=== PATIENT | female | born 1965 | race Caucasian/White ===

== ENCOUNTER → 2018-12-22 07:12 | Outpatient (CLI) | payer OTHER, SELFPAY ==
[2016-11-09 16:12] VITALS: BMI 21.9
[2018-12-22 08:15] LABS: 24Hr.Lytes Total Volume 700 mL; Sodium 24 HR UR 118 mmol/24h (40-220); Urine Sodium 168 mmol/L (Not Establ.)
[2018-12-22 08:16] LABS: Urine Chloride 156 mmol/L (Not Establ.)
[2018-12-22 08:22] LABS: (24 HR) Urine Calcium 133.1 mg/24 HR (42.0-353.0); 24HR UR TOTAL VOLUME 625 ml; Calcium Urine pH Range 2; Urine Calcium (Random) 21.3 (Not Estab.)
[2018-12-22 09:23] LABS: Albumin, Serum 3.7 g/dL (3.2-5.0); BUN 23 mg/dL (7-18); BUN/Creat Ratio 19.8 RATIO (10-20); Calcium,Total 9.1 mg/dL (8.5-10.1); Chloride 107 mmol/L (98-107); Creatinine, Serum 1.16 mg/dL (0.55-1.02); EST Glomerular Filtration Rate 52 mL/min (>60); Est Glom Filt Rate - Afr Amer 62 mL/min (>60); Glucose 89 mg/dL (74-106); Phosphorus 2.9 mg/dL (2.5-4.9); Sodium Level 146 mmol/L (136-145)
[2018-12-22 09:31] LABS: PTHIN 65.3 pg/mL (18.4-80.1)
== END ==
PROVIDERS: Family Provider Family Medicine; PCP Family Medicine; Referring Provider Internal Medicine Nephrology; Visit Provider Internal Medicine Nephrology
DX: N18.3 Chronic kidney disease, stage 3 (moderate) (principal); N20.0 Calculus of kidney
CPT/HCPCS: 36415; 80069; 82340; 82436; 83970; 84133; 84300; 84560

== ENCOUNTER → 2019-04-29 | Outpatient (CLI) | payer OTHER, SELFPAY ==
[2016-11-09 16:12] VITALS: BMI 21.9
[2019-04-29 09:19] LABS: (24 HR) Urine Calcium 224.1 mg/24 HR (42.0-353.0); 24HR UR TOTAL VOLUME 1375 ml; Calcium Urine pH Range 1; Urine Calcium (Random) 16.3 (Not Estab.)
[2019-04-29 09:21] LABS: 24Hr.Lytes Total Volume 1375 mL; Sodium 24 HR UR 117 mmol/24h (40-220); Urine Sodium 85 mmol/L (Not Establ.)
[2019-04-29 09:24] LABS: Urine Chloride 88 mmol/L (Not Establ.)
== END | disposition home or self-care (01) ==
LOC: LABSPEC 07:25
PROVIDERS: Family Provider Family Medicine; PCP Family Medicine; Referring Provider Internal Medicine Nephrology; Visit Provider Internal Medicine Nephrology
DX: N20.0 Calculus of kidney (principal)
CPT/HCPCS: 82340; 82436; 84133; 84300

== ENCOUNTER → 2019-04-30 | Outpatient (CLI) | payer OTHER, SELFPAY ==
[2016-11-09 16:12] VITALS: BMI 21.9
[2019-04-30 10:33] LABS: BUN 30 mg/dL (7-18); BUN/Creat Ratio 23.6 RATIO (10-20); Calcium,Total 9.5 mg/dL (8.5-10.1); Chloride 105 mmol/L (98-107); Creatinine, Serum 1.27 mg/dL (0.55-1.02); EST Glomerular Filtration Rate 46 mL/min (>60); Est Glom Filt Rate - Afr Amer 56 mL/min (>60); Glucose 96 mg/dL (74-106); Phosphorus 3.5 mg/dL (2.5-4.9); Potassium 4.4 mmol/L (3.5-5.1); Sodium Level 142 mmol/L (136-145)
== END | disposition home or self-care (01) ==
LOC: LAB.FUTURE 08:54 → LABSPEC 08:55
PROVIDERS: Family Provider Family Medicine; PCP Family Medicine; Referring Provider Internal Medicine Nephrology; Visit Provider Internal Medicine Nephrology
DX: N18.3 Chronic kidney disease, stage 3 (moderate) (principal); N20.0 Calculus of kidney
CPT/HCPCS: 36415; 80069

== ENCOUNTER → 2020-01-12 08:52 | Outpatient (CLI) | payer OTHER, SELFPAY ==
[2016-11-09 16:12] VITALS: BMI 21.9
[2020-01-12 10:23] LABS: BUN 29 mg/dL (7-18); BUN/Creat Ratio 24.2 RATIO (10-20); Calcium,Total 9.6 mg/dL (8.5-10.1); Chloride 108 mmol/L (98-107); EST Glomerular Filtration Rate 49 mL/min (>60); Est Glom Filt Rate - Afr Amer 60 mL/min (>60); Glucose 118 mg/dL (74-106); Phosphorus 2.9 mg/dL (2.5-4.9); Potassium 4.2 mmol/L (3.5-5.1); Sodium Level 141 mmol/L (136-145)
== END ==
PROVIDERS: PCP Family Medicine; Referring Provider Internal Medicine Nephrology; Visit Provider Internal Medicine Nephrology
DX: N18.3 Chronic kidney disease, stage 3 (moderate) (principal)
CPT/HCPCS: 36415; 80069

== ENCOUNTER → 2020-11-01 07:45 | Outpatient (CLI) | payer OTHER, SELFPAY ==
[2016-11-09 16:12] VITALS: BMI 21.9
[2020-11-01 08:59] LABS: Albumin, Serum 3.9 g/dL (3.2-5.0); BUN 29 mg/dL (7-18); BUN/Creat Ratio 22.8 RATIO (10-20); Calcium,Total 9.7 mg/dL (8.5-10.1); Chloride 107 mmol/L (98-107); Creatinine, Serum 1.27 mg/dL (0.55-1.02); EST Glomerular Filtration Rate 46 mL/min (>60); Est Glom Filt Rate - Afr Amer 56 mL/min (>60); Glucose 79 mg/dL (74-106); Potassium 4.3 mmol/L (3.5-5.1); Sodium Level 141 mmol/L (136-145)
== END ==
PROVIDERS: PCP Family Medicine; Referring Provider Internal Medicine Nephrology; Visit Provider Internal Medicine Nephrology
DX: N18.30 Chronic kidney disease, stage 3 unspecified (principal)
CPT/HCPCS: 36415; 80069

== ENCOUNTER → 2021-01-25 14:16 | Outpatient (CLI) | payer OTHER, SELFPAY ==
[2016-11-09 16:12] VITALS: BMI 21.9
[2021-01-25 15:12] LABS: 24Hr.Lytes Total Volume 1650 mL; Sodium 24 HR UR 211 mmol/24h (40-220); Urine Chloride 132 mmol/L (Not Establ.); Urine Chloride / 24 Hours 218 mmol/24h (110-250); Urine Sodium 128 mmol/L (Not Establ.)
== END ==
PROVIDERS: PCP Family Medicine; Referring Provider Internal Medicine Nephrology; Visit Provider Internal Medicine Nephrology
DX: N20.0 Calculus of kidney (principal)
CPT/HCPCS: 81050; 82436; 84133; 84300

== ENCOUNTER → 2021-06-27 08:10 | Outpatient (CLI) | payer OTHER, SELFPAY ==
[2016-11-09 16:12] VITALS: BMI 21.9
[2021-06-27 08:50] LABS: PTHIN 98.9 pg/mL (18.4-80.1)
[2021-06-27 08:55] LABS: Albumin, Serum 4.2 g/dL (3.2-5.0); BUN 25 mg/dL (7-18); BUN/Creat Ratio 22.3 RATIO (10-20); Calcium,Total 9.3 mg/dL (8.5-10.1); Chloride 107 mmol/L (98-107); Creatinine, Serum 1.12 mg/dL (0.55-1.02); EST Glomerular Filtration Rate 53 mL/min (>60); Est Glom Filt Rate - Afr Amer 64 mL/min (>60); Glucose 110 mg/dL (74-106); Phosphorus 2.7 mg/dL (2.5-4.9); Potassium 4.2 mmol/L (3.5-5.1); Sodium Level 139 mmol/L (136-145)
== END ==
PROVIDERS: PCP Family Medicine; Referring Provider Internal Medicine Nephrology; Visit Provider Internal Medicine Nephrology
DX: N18.31 Chronic kidney disease, stage 3a (principal)
CPT/HCPCS: 36415; 80069; 83970

== ENCOUNTER 2021-11-08 03:35 | Emergency (ER) | payer OTHER, SELFPAY ==
[2021-11-08 03:36] VITALS: BP 110/75; PULSE 77; RESP 16; TEMP 36.1; O2SAT 100; BMI 21.9
--- NOTE | 2021-11-08 05:00 | CT_ITS ---
EXAM: CT ABDOMEN AND PELVIS WITH INTRAVENOUS CONTRAST CLINICAL INDICATION: llq/vaginal pain llq/vaginal pain TECHNIQUE: Helically acquired images were obtained of the abdomen and pelvis with intravenous contrast. This CT exam was performed using one or more of the following dose reduction techniques: automated exposure control, adjustment of the mA and/or kV according to patient size, and/or use of iterative reconstruction technique. This report was created using [employer] report generation technology. CONTRAST: IV 75mL [id number] COMPARISON: CT scan 10/30/2016. FINDINGS: LOWER THORAX: There are centrilobular emphysematous changes in the visualized lower lung nelson bilaterally. As seen on axial image 2, there is a 7 mm noncalcified solid intraparenchymal right lower lung nodule. No cardiomegaly. No significant pericardial effusion. ABDOMEN: LIVER: Unremarkable. Homogeneous. No focal mass. GALLBLADDER AND BILE DUCTS: Unremarkable. No calcified gallstones. No gallbladder distention or wall edema. No intra- or extrahepatic biliary ductal dilation. PANCREAS: Unremarkable. No focal cystic or solid mass. SPLEEN: Unremarkable. Normal size without focal cystic or solid mass. ADRENALS: Unremarkable. No nodules. KIDNEYS AND URETERS: As seen on axial images 90-91, there is a 2.5 mm wide calcification in the left posterior urinary bladder. I''m uncertain as to whether this represents a distal left ureteral calculus in the interstitial portion of the UVJ or this represents a calculus that has already passed into the bladder lumen.. There is no demonstrated hydronephrosis of the left kidney. There are 4 nonobstructive right renal calculi, ranging up to 3.5 mm. Normal renal size and position. STOMACH AND BOWEL: There are colonic diverticula. No stomach or bowel distention. No focal inflammatory change. PELVIS: APPENDIX: A normal-appearing appendix is seen on axial images 64-76. BLADDER: Unremarkable. REPRODUCTIVE: Unremarkable as visualized. No mass. ABDOMEN and PELVIS: INTRAPERITONEAL SPACE: Unremarkable. No ascites or other fluid collection. No free air. BONES/JOINTS: There are multilevel degenerative changes in the lumbar spine. No suspicious lytic or blastic abnormality. SOFT TISSUES: Unremarkable. No discrete abdominal or pelvic wall hernia. VASCULATURE: There is a dystrophic calcification of the abdominal aorta. Abdominal aorta is non-dilated. LYMPH NODES: Unremarkable. No enlarged lymph nodes. CT/Abdomen/Pelvis W IV Cont ONLY IMPRESSION: 1. 2.5 mm wide calculus is either in the left posterior bladder lumen or it is in the distal most left ureter within the UVJ. There is no associated hydronephrosis of the left kidney. 2. Small nonobstructive right renal calculi. No demonstrated right ureteral calculi or hydronephrosis. 3. Colonic diverticulosis, without evidence for acute diverticulitis. 4. Atherosclerosis. 5. 7 mm right lower lobe lung nodule. Fleischner Society Guidelines for low-risk patients recommend follow-up chest CT at 6-12 months. If unchanged consider an additional follow-up CT at 18-24 months. For high-risk patients (smoking history or other known risk factors) initial follow-up chest CT at 6-12 months and if unchanged, 18-24 months. 6. Emphysematous changes in the visualized lung bases. Electronically Signed: Jose John MD at 7:18 EST , Service support ,
--- NOTE | 2021-11-08 05:00 | ED.VIS.GI ---
HPI HPI - GI History of Present Illness Chief Complaint: Female C/O Informant: patient Abdominal Pain/Flank Pain Onset: Hours (2.5) Context: Sudden Onset (Woke her up from sleep) Timing: Continuous Quality: Aching and Sharp Location: - (Up in vagina) Current Severity: Severe Maximum Severity: Severe Worsened by: Car ride Relieved by: Nothing Nausea/Vomiting/Emesis GI Symptom: Negative for Nausea and Vomiting Diarrhea/Melena/Hematochezia GI Symptom: Negative for Diarrhea, Melena and Hematochezia Associated Symptoms Associated Symptoms: Positive for - ([place] like needed to urinate earlier but was not able); Negative for Dysuria, Frequency, Hematuria and Urgency Narrative Narrative: Sudden pain awoke her from sleep. History of kidney stones and this feels different. Pain does not go into back. [place] fine before she went to bed. No recent illness or injury. [facility] Medical History (Updated 11/08/21 @ 07:[address] Neto Duval MD) Kidney stones Home Medications estradiol 0.5 mg PO DAILY 11/09/16 [History Last Taken Unknown] ondansetron 8 mg PO Q8H PRN PRN #20 tab 11/08/21 [Rx Last Taken Unknown] oxycodone-acetaminophen 1 tab PO Q6H PRN PRN 5 Days #20 tablet 11/08/21 [Rx Last Taken Unknown] tamsulosin 0.4 mg PO DAILY #7 capsule 11/08/21 [Rx Last Taken Unknown] Allergy/AdvReac Type Severity Reaction Status Date / Time nitrofurantoin Allergy Hives Verified 11/08/21 03:38 [From Macrobid] Yeast Allergy Other Verified 11/08/21 03:38 Surgical History H/O bilateral oophorectomy H/O lithotripsy S/P complete hysterectomy Social History Smoking Status: Current some day smoker tobacco type: cigarettes ROS ROS ED Constitutional Constitutional ED: Denies chills or fever(s) Eyes Eyes: Denies change in vision or diplopia ENT ENT ED: Denies rhinorrhea or sore throat Cardiovascular Cardiovascular: Denies chest pain or palpitations Respiratory/Chest Respiratory/Chest: Denies cough or dyspnea Gastrointestinal Gastrointestinal: Denies abdominal pain, diarrhea, nausea or vomiting Genitourinary Genitourinary ED: Reports as per HPI; Denies dysuria, hematuria, vaginal bleeding or vaginal discharge Musculoskeletal Musculoskeletal: Denies back pain or neck pain Integumentary Denies abscess or rash Neurologic Neurologic: Denies headache(s), paresthesias or weakness Psychiatric Psychiatric: Denies anxiety or suicidal thoughts EXAM Physical Exam Const Vital Signs: 11/08/21 03:36 11/08/21 05:12 Temperature 97 F L 97 F L Temperature Source Temporal Temporal Pulse Rate 77 77 Respiratory Rate 16 16 Blood Pressure 110/75 110/75 Blood Pressure Mean 86 86 Pulse Ox 100 100 Oxygen Delivery Method Room Air Room Air Positive well nourished and well developed Constitutional Narrative: Uncomfortable but no distress General Appearance ED: well developed and NAD HEENT Reports moist mucous membranes normocephalic and atraumatic Eyes PERRL and EOMs intact bilaterally Neck full ROM and supple Resp normal respiratory effort and clear to auscultation bilaterally Cardio regular rate, regular rhythm and no murmurs GI non-distended GI Narrative: Very tender suprapubic and left lower quadrant and pelvis area, distally no rebound Auscultation: normoactive bowel sounds Palpation: soft Speculum Exam - Vagina: Negative for vaginal bleeding or vaginal discharge Back/Spine no CVA tenderness General Back: other FROM Extremity normal to inspection General Extremety ED: Negative for edema, pulses abnormal or tenderness General Extremity: Negative for edema or pulses abnormal Neuro oriented x3, CN's II-XII intact bilaterally and no sensory deficits noted Sensorium / Orientation: awake and alert Motor Exam: strength 5/5 throughout Skin no rashes or lesions noted and no wounds MDM MDM MDM Narrative Medical decision making narrative: CT shows a left UVJ stone which is probably the cause of her symptoms. Her pain was well controlled after morphine and Toradol. Given her tenderness and the history, we did do the scan with IV contrast to look for other pathology and there were no other acute abnormalities. Expectant management is indicated right now, her urine does not show infection but does show blood. She is given strainers, analgesics, and advised to follow-up with urology as needed, she is comfortable with that overall plan. I will also prescribe her a short course of Flomax and I warned her about the possibility of first dose syncope. Lab Data Attestation: I reviewed the patient's lab results. Labs: Laboratory Results - last 24 hr 11/08/21 11/08/21 11/08/21 05:15 05:15 05:15 WBC 9.2 RBC 4.74 Hgb 14.1 Hct 44.5 MCV 93.9 MCH 29.7 MCHC 31.7 L RDW Std Deviation 43.9 RDW Coeff of Arlene 12.7 Plt Count 275 MPV 10.0 Immature Gran % (Auto) 0.300 Neut % (Auto) 67.4 Lymph % (Auto) 22.1 [place] % (Auto) 8.3 Eos % (Auto) 1.2 Baso % (Auto) 0.7 Absolute Neuts (auto) 6.2 Absolute Lymphs (auto) 2.03 Nucleated RBC % 0 Sodium 142 Potassium 4.2 Chloride 106 Carbon Dioxide 31.0 Anion Gap 5 BUN 25 H Creatinine 1.28 H Estim Creat Clear Calc 38.35 Est GFR (MDRD) Af Amer 55 L Est GFR (MDRD) Non-Af 46 L BUN/Creatinine Ratio 19.5 Glucose 95 Calcium 9.6 Urine Color Yellow Urine Clarity Clear Urine pH 5.0 Ur Specific [place] 1.030 Urine Protein 30 H Urine Glucose (UA) Normal Urine Ketones 5 H Urine Occult Blood 250 H Urine Nitrite Negative Urine Bilirubin 1 H Urine Urobilinogen 1 H Ur Leukocyte Esterase 25 H Urine RBC 25-50 SEEN Urine WBC 0-5 SEEN Ur Squamous Epith Cells 0 SEEN Calcium Oxalate Crystal RARE Urine Bacteria 1+ Urine Mucus 1+ Radiography Diagnostic Testing: Clinical Impression(s) from Imaging Studies Abdomen/Pelvis CT 11/08/21 05:00 IMPRESSION: 1. 2.5 mm wide calculus is either in the left posterior bladder lumen or it is in the distal most left ureter within the UVJ. There is no associated hydronephrosis of the left kidney. 2. Small nonobstructive right renal calculi. No demonstrated right ureteral calculi or hydronephrosis. 3. Colonic diverticulosis, without evidence for acute diverticulitis. 4. Atherosclerosis. 5. 7 mm right lower lobe lung nodule. Fleischner Society Guidelines for low-risk patients recommend follow-up chest CT at 6-12 months. If unchanged consider an additional follow-up CT at 18-24 months. For high-risk patients (smoking history or other known risk factors) initial follow-up chest CT at 6-12 months and if unchanged, 18-24 months. 6. Emphysematous changes in the visualized lung bases. Electronically Signed: Jose John MD at 7:18 EST , Service support , Discharge Plan Triage Chief Complaint: Female C/O ED Provider: Neto Duval Dx/Rx/DC Orders Clinical Impression: Ureterolithiasis, Ureteral colic Instructions: ED Kidney Stone w/ Colic Prescriptions: New oxycodone-acetaminophen [oxycodone-acetaminophen] 1 TABLET tablet 1 tab PO Q6H PRN PRN (Reason: severe pain) 5 Days Qty: 20 RF: 0 tamsulosin [tamsulosin] 0.4 MG capsule 0.4 mg PO DAILY Qty: 7 RF: 0 ondansetron [ondansetron] 4 MG tablet 8 mg PO Q8H PRN PRN (Reason: Nausea) Qty: 20 RF: 0 No Action estradiol 0.5 MG tablet 0.5 mg PO DAILY RF: 0 Primary Care Provider: Alejo Solitario Referrals: Avelina Rios MD [STAFF PHYSICIAN] - 1 Week if not improving (Return to ER for intractable symptoms or fevers; strain all of your urine, so you know if and when you pass the stone) Alejo Solitario MD [Primary Care Provider] - Disposition Disposition: Home, Self Care
[2021-11-08] MEDS: Morphine 4 MG/ML Syringe IV ×2 (05:10→06:31)
[2021-11-08] MEDS: 0.9% Normal Saline 1,000 ML 999 ML IV (05:11)
[2021-11-08 05:12] VITALS: BP 110/75; PULSE 77; RESP 16; TEMP 36.1; O2SAT 100
[2021-11-08 05:28] LABS: Squamous Epithelial Cells - UA 0 SEEN /hpf (5-10)
[2021-11-08 05:30] LABS: Absolute Lymphocyte Count 2.03 X10^3/uL (0.83-4.51); Absolute Neutrophil Count 6.2 X10^3/uL (2.0-7.7); Basophil# 0.06 X10^3/uL; Basophil% 0.7 % (0-1); Eosinophil# 0.11 X10^3/uL; Eosinophils% 1.2 % (0-5); Hematocrit 44.5 % (37-47); Hemoglobin 14.1 g/dL (12.0-15.0); Lymphocyte # 2.03 X10^3/ul (0.83-4.51); Lymphocyte % 22.1 % (19-41); Mean Corp Hgb Conc 31.7 g/dL (32-36); Mean Corpuscular Hgb 29.7 pg (27.0-32.0); Mean Corpuscular Volume 93.9 fL (81-99); Monocyte# 0.76 X10^3/uL; Monocyte% 8.3 % (0-10); NRBC Flagged by Analyzer 0 % (0-5); Neutrophil # 6.18 X10^3/uL (2.7-7.7); Neutrophil % 67.4 % (47-70); Platelet Count 275 K/mm3 (150-450); RBC Distribution Width CV 12.7 % (11.6-14.6); RBC Distribution Width SD 43.9 fl (35.1-43.9); Red Blood Count 4.74 M/mm3 (4.2-5.4); White Blood Count 9.2 K/mm3 (4.4-11.0)
[2021-11-08 05:35] LABS: Color, Urine Yellow (Yellow); Glucose, Dipstick Normal (Normal); Ketone-Dipstick 5 mg/dl (Negative); Leukocyte Esterase-Dipstick 25 /ul (Negative); Nitrite-Dipstick Negative (Negative); Occult Blood-Urine 250 /ul (Negative); Protein-Dipstick 30 mg/dl (Negative); Urine Clarity Clear (Clear); Urine Urobilinogen 1 mg/dl (Normal)
[2021-11-08 05:39] LABS: Urine Bilirubin Dipstick 1 mg/dL (Negative)
[2021-11-08 06:00] LABS: Anion Gap 5 (5-15); BUN 25 mg/dL (7-18); BUN/Creat Ratio 19.5 RATIO (10-20); Calcium,Total 9.6 mg/dL (8.5-10.1); Chloride 106 mmol/L (98-107); Creatinine, Serum 1.28 mg/dL (0.55-1.02); EST Glomerular Filtration Rate 46 mL/min (>60); Est Glom Filt Rate - Afr Amer 55 mL/min (>60); Estimated Creatinine Clearance 38.35 ml/min; Glucose 95 mg/dL (74-106); Potassium 4.2 mmol/L (3.5-5.1); Sodium Level 142 mmol/L (136-145)
[2021-11-08 06:12] LABS: Red Blood Cells-Urine 25-50 SEEN /hpf (0-5); White Blood Cells 0-5 SEEN /hpf (0-5)
[2021-11-08 06:13] LABS: Bacteria 1+ /hpf (None Seen); Calcium Oxalate Crystals Ur RARE /hpf (<or=2+); Mucous, Urine 1+ /hpf (<or=2+)
[2021-11-08] MEDS: Ketorolac 15 MG/ML Vial IV (07:12)
== END 2021-11-08 08:01 | disposition home or self-care (01) ==
PROVIDERS: Emergency Provider Emergency Medicine; PCP Family Medicine
DX: N20.0 Calculus of kidney (principal); R91.1 Solitary pulmonary nodule; Z87.442 Personal history of urinary calculi; F17.210 Nicotine dependence, cigarettes, uncomplicated
CPT/HCPCS: 74177; 80048; 81001; 85025; 96361; 96374; 96375; 96376; 99284; J7030; Q9967; A4216

== ENCOUNTER → 2022-06-26 | Outpatient (CLI) | payer OTHER, SELFPAY ==
[2022-06-26 10:13] LABS: Albumin, Serum 3.9 g/dL (3.2-5.0); BUN 20 mg/dL (7-18); BUN/Creat Ratio 17.7 RATIO (10-20); Calcium,Total 9.1 mg/dL (8.5-10.1); Chloride 106 mmol/L (98-107); Creatinine, Serum 1.13 mg/dL (0.55-1.02); EST Glomerular Filtration Rate 53 mL/min (>60); Est Glom Filt Rate - Afr Amer 64 mL/min (>60); Glucose 110 mg/dL (74-106); Phosphorus 2.6 mg/dL (2.5-4.9); Potassium 4.2 mmol/L (3.5-5.1); Sodium Level 139 mmol/L (136-145)
== END | disposition home or self-care (01) ==
PROVIDERS: PCP Family Medicine; Referring Provider Internal Medicine Nephrology; Visit Provider Internal Medicine Nephrology
DX: N18.31 Chronic kidney disease, stage 3a (principal)
CPT/HCPCS: 36415; 80069

== ENCOUNTER → 2022-06-27 | Outpatient (CLI) | payer OTHER, SELFPAY | END | disposition home or self-care (01) | LOC: LAB 10:13 → LABSPEC 10:15 | PROVIDERS: PCP Family Medicine; Visit Provider Internal Medicine Nephrology | DX: N18.31 Chronic kidney disease, stage 3a (principal); N20.0 Calculus of kidney | CPT/HCPCS: 81050; 82507 ==

== ENCOUNTER → 2022-06-28 | Outpatient (CLI) | payer OTHER, SELFPAY ==
[2022-06-28 17:35] LABS: 24HR UR TOTAL VOLUME 1050 ml
[2022-06-29 07:50] LABS: Calcium Urine pH Range 1
[2022-06-29 07:54] LABS: 24Hr.Lytes Total Volume 1050 mL; Sodium 24 HR UR 133 mmol/24h (40-220); Urine Sodium 127 mmol/L (Not Establ.)
== END | disposition home or self-care (01) ==
LOC: LAB 14:47 → LABSPEC 14:48
PROVIDERS: PCP Family Medicine; Visit Provider Internal Medicine Nephrology
DX: N18.31 Chronic kidney disease, stage 3a (principal)
CPT/HCPCS: 81050; 82340; 84300

== ENCOUNTER 2022-12-25 04:13 | Emergency (ER) | payer OTHER, SELFPAY ==
[2022-12-25 04:14] VITALS: BP 153/70; PULSE 63; RESP 18; TEMP 36.4; O2SAT 98; BMI 22.3
--- NOTE | 2022-12-25 04:57 | CT_ITS ---
INDICATION: Kidney Stone EXAMINATION: CT ABDOMEN AND PELVIS WITHOUT CONTRAST - CT Abdomen And Pelvis W/O Contrast Injection TECHNIQUE: Helically acquired images were obtained of the abdomen and pelvis without oral or IV contrast. A radiation dose optimization technique was used for this scan. IV Contrast dosage and agent: None. Oral contrast: None. COMPARISON: None. FINDINGS: LOWER CHEST: Lung bases are clear. No cardiomegaly or pericardial effusion. LIVER: Homogeneous. No focal mass. GALLBLADDER AND BILIARY TREE: No calcified gallstones. No gallbladder distension or wall edema. No intra- or extrahepatic biliary ductal dilation. PANCREAS: No focal cystic or solid mass. SPLEEN: Normal size without focal cystic or solid mass. ADRENAL GLANDS: No nodules. KIDNEYS AND URETERS: Bilateral kidney stones the largest measures 6 mm. there is mild left hydronephrosis and hydroureter due to 3 mm stone left ureter at the UVJ. PERITONEUM: No ascites or free air. No other fluid collection. BOWEL: No evidence of acute appendicitis. No stomach or bowel distension. No focal inflammatory change. LYMPH NODES: No enlarged mesenteric or retroperitoneal lymph nodes. VESSELS: Aorta is non-dilated. URINARY BLADDER: Unremarkable. REPRODUCTIVE ORGANS: No pelvic masses. ABDOMINAL WALL: No discrete abdominal or pelvic wall hernia. BONES: No lytic or blastic abnormality. CT/Abdomen/Pelvis without Cont IMPRESSION: Bilateral kidney stones the largest measures 6 mm, there is mild left hydronephrosis and hydroureter due to 3 mm stone left ureter at the UVJ. Electronically Signed: Adam Lemos MD at 5:57 EST ,
[2022-12-25] MEDS: Morphine 4 MG/ML Syringe IV (05:04)
[2022-12-25] MEDS: 0.9% Normal Saline 1,000 ML 999 ML IV (05:05)
[2022-12-25 05:06] LABS: Absolute Lymphocyte Count 2.64 X10^3/uL (0.83-4.51); Basophil# 0.05 X10^3/uL; Basophil% 0.6 % (0-1); Eosinophil# 0.21 X10^3/uL; Eosinophils% 2.4 % (0-5); Hematocrit 41.7 % (37-47); Hemoglobin 13.3 g/dL (12.0-15.0); Lymphocyte # 2.64 X10^3/ul (0.83-4.51); Lymphocyte % 30.5 % (19-41); Mean Corp Hgb Conc 31.9 g/dL (32-36); Mean Corpuscular Hgb 29.8 pg (27.0-32.0); Mean Corpuscular Volume 93.3 fL (81-99); Mean Platelet Vol. 10.3 fl (6.2-12.0); Monocyte# 0.74 X10^3/uL; Monocyte% 8.5 % (0-10); NRBC Flagged by Analyzer 0 % (0-5); Neutrophil # 4.99 X10^3/uL (2.7-7.7); Neutrophil % 57.7 % (47-70); Platelet Count 278 K/mm3 (150-450); RBC Distribution Width SD 41.3 fl (35.1-43.9); Red Blood Count 4.47 M/mm3 (4.2-5.4); White Blood Count 8.7 K/mm3 (4.4-11.0)
[2022-12-25 05:06] LABS: Mucous, Urine 0 SEEN /hpf (<or=2+); Red Blood Cells-Urine 0 SEEN /hpf (0-5); Squamous Epithelial Cells - UA 0 SEEN /hpf (5-10); White Blood Cells 0 SEEN /hpf (0-5)
[2022-12-25 05:09] LABS: Color, Urine Yellow (Yellow); Glucose, Dipstick Normal (Normal); Ketone-Dipstick Negative (Negative); Leukocyte Esterase-Dipstick Negative /ul (Negative); Nitrite-Dipstick Negative (Negative); Occult Blood-Urine Negative /ul (Negative); Protein-Dipstick Negative (Negative); Urine Bilirubin Dipstick Negative (Negative); Urine Clarity Clear (Clear); Urine Urobilinogen Normal (Normal)
--- NOTE | 2022-12-25 05:10 | EDS_ITS ---
HPI History of Present Illness Chief Complaint: Flank Pain Informant: patient Narrative Narrative: Patient is a 57-year-old female with history of CKD and kidney stones presenting with vaginal pain and pressure/concern for kidney stones. Patient states her symptoms started tonight. She states it feels like her last kidney stone was about 5 years ago. She has had lithotripsy in the past. She does not currently follow with a urologist. She notes she is on medication from her pharmaceutical specialty representative, citrate, which can increase the risk of passing kidney stones. She has over the past 2 days she just felt more tired but denies any other symptoms. Denies any nausea or vomiting. Denies any frequency, pressure or hematuria associate with urination. Denies any bulging out of her vagina. Denies any history of vaginal prolapse, rectocele or cystocele. Denies any back pain. States she just has a throbbing pain in her vagina. She had 2 Aleve earlier tonight with no relief of her symptoms. [facility] Medical History Kidney stones Home Medications estradiol 0.5 mg tablet 0.5 mg PO DAILY 11/09/16 [History Last Taken Unknown] ondansetron 4 mg disintegrating tablet 8 mg PO Q8H PRN PRN Nausea #20 tabs 11/08/21 [Rx Last Taken Unknown] oxycodone-acetaminophen 5 mg-325 mg tablet 1 tab PO Q6H PRN PRN severe pain 5 days #20 TABLETS 11/08/21 [Rx Last Taken Unknown] tamsulosin 0.4 mg capsule 0.4 mg PO DAILY #7 CAPSULES 11/08/21 [Rx Last Taken Unknown] oxycodone-acetaminophen 5 mg-325 mg tablet (Percocet) 1 tab PO Q6H PRN pain 3 days #12 tabs 12/25/22 [Rx Last Taken Unknown] tamsulosin 0.4 mg capsule (Flomax) 0.4 mg PO DAILY #7 caps 12/25/22 [Rx Last Taken Unknown] Allergy/AdvReac Type Severity Reaction Status Date / Time nitrofurantoin Allergy Hives Verified 11/08/21 03:38 [From Macrobid] Yeast Allergy Other Verified 11/08/21 03:38 Surgical History H/O bilateral oophorectomy H/O lithotripsy S/P complete hysterectomy Social History Smoking Status: Former smoker ROS ROS ED Constitutional Constitutional ED: Denies chills or fever(s) Cardiovascular Cardiovascular: Denies chest pain Respiratory/Chest Respiratory/Chest: Denies cough Gastrointestinal Gastrointestinal: Denies abdominal pain, diarrhea, nausea or vomiting Genitourinary Genitourinary ED: Reports other Details: Vaginal pain ; Denies dysuria, hematuria or urinary frequency Musculoskeletal Musculoskeletal: Denies arthralgias, back pain or myalgias Integumentary Denies rash Neurologic Neurologic: Denies headache(s) or weakness Psychiatric Psychiatric: Denies anxiety EXAM Physical Exam Const Vital Signs: 12/25/22 04:14 Temperature 97.5 F L Temperature Source Temporal Pulse Rate 63 Respiratory Rate 18 Blood Pressure 153/70 H Blood Pressure Mean 97 Pulse Ox 98 Oxygen Delivery Method Room Air Positive well nourished and well developed General Appearance ED: well developed and NAD; Negative for pallor HEENT Reports moist mucous membranes Eyes PERRL and EOMs intact bilaterally Neck supple and no JVD Chest Wall inspection of chest normal and palpation of chest normal Resp normal respiratory effort and clear to auscultation bilaterally GI normal to inspection, nondistended, normoactive bowel sounds Palpation: tender LUQ; Negative for guarding Back/Spine no CVA tenderness Extremity normal to inspection General Extremety ED: Negative for edema General Extremity: Negative for edema Neuro oriented x3 Sensorium / Orientation: alert Motor Exam: Negative for general weakness Psych mental status grossly normal Skin no rashes or lesions noted General Skin Exam: Negative for jaundice or pallor MDM MDM MDM Narrative Medical decision making narrative: Patient is evaluated for sudden onset which she describes as vaginal pain. She states it is throbbing. Feeling her prior kidney stones. Differential includes but is not limited to renal colic, pyelonephritis, UTI, vaginal prolapse and colitis. Urinalysis largely normal but does show 1+ bacteria with no leukocytes, nitrates or white blood cells. Low suspicion for infection. CBC unremarkable and BMP does show mildly other creatinine 1.35 however this is very near the patient's baseline. Patient is given a dose of morphine and IV fluids in the ER for symptom control and is feeling much more comfortable. CT of the abdomen pelvis does show a 3 mm stone at the left ureter at the UVJ as well as bilateral kidney stones with the largest measuring 6 mm. This pa stone should pass on its own. Patient is given dose of oxycodone prior to discharge. She would like to try outpatient treatment. She will be restarted on Flomax that she has had success with this in the past. She is given referral for Dr. Rios, urology. Patient is given return precautions. She does mention that she is planning on flying to [place] to go [employer] on . Patient is counseled that if her symptoms have resolved she should be safe to travel. She is counseled that her symptoms not resolve she might need to go to a local emergency room there. Plan of care and return precautions discussed with patient and her . They both agreeable. Patient discharged home in improved and stable condition. Lab Data Attestation: I reviewed the patient's lab results. Labs: Laboratory Results - last 24 hr 12/25/22 12/25/22 12/25/22 04:58 05:00 05:00 WBC 8.7 RBC 4.47 Hgb 13.3 Hct 41.7 MCV 93.3 MCH 29.8 MCHC 31.9 L RDW Std Deviation 41.3 RDW Coeff of Arlene 12.0 Plt Count 278 MPV 10.3 Immature Gran % (Auto) 0.300 Neut % (Auto) 57.7 Lymph % (Auto) 30.5 [place] % (Auto) 8.5 Eos % (Auto) 2.4 Baso % (Auto) 0.6 Absolute Neuts (auto) 5.0 Absolute Lymphs (auto) 2.64 Nucleated RBC % 0 Sodium 141 Potassium 4.5 Chloride 106 Carbon Dioxide 27.0 Anion Gap 8 BUN 28 H Creatinine 1.35 H Estim Creat Clear Calc 35.49 Est GFR (MDRD) Af Amer 52 L Est GFR (MDRD) Non-Af 43 L BUN/Creatinine Ratio 20.7 H Glucose 111 H Calcium 9.5 Urine Color Yellow Urine Clarity Clear Urine pH 6.0 Ur Specific [place] 1.020 Urine Protein Negative Urine Glucose (UA) Normal Urine Ketones Negative Urine Occult Blood Negative Urine Nitrite Negative Urine Bilirubin Negative Urine Urobilinogen Normal Ur Leukocyte Esterase Negative Urine RBC 0 SEEN Urine WBC 0 SEEN Ur Squamous Epith Cells 0 SEEN Urine Bacteria 1+ Urine Mucus 0 SEEN Radiography Diagnostic Testing: Clinical Impression(s) from Imaging Studies Abdomen/Pelvis CT 12/25/22 04:57 IMPRESSION: Bilateral kidney stones the largest measures 6 mm, there is mild left hydronephrosis and hydroureter due to 3 mm stone left ureter at the UVJ. Electronically Signed: Adam Lemos MD at 5:57 EST Reading Location ID and State: [facility] / [place] Tel , Service support , Discharge Plan Triage Chief Complaint: Flank Pain ED Provider: Pooja Ac Dx/Rx/DC Orders Clinical Impression: Renal colic on left side, Ureterolithiasis, CKD (chronic kidney disease) Instructions: ED Kidney Stone w/ Colic Prescriptions: New oxycodone-acetaminophen [Percocet] 5-325 mg tablet 1 tab PO Q6H PRN (Reason: pain) 3 Days Qty: 12 0RF tamsulosin [Flomax] 0.4 mg capsule 0.4 mg PO DAILY Qty: 7 0RF No Action estradiol 0.5 MG tablet 0.5 mg PO DAILY oxycodone-acetaminophen [oxycodone-acetaminophen] 1 TABLET tablet 1 tab PO Q6H PRN PRN (Reason: severe pain) 5 Days Qty: 20 0RF tamsulosin [tamsulosin] 0.4 MG capsule 0.4 mg PO DAILY Qty: 7 0RF ondansetron [ondansetron] 4 MG tablet 8 mg PO Q8H PRN PRN (Reason: Nausea) Qty: 20 0RF Primary Care Provider: Alejo Solitario Referrals: Avelina Rios MD [Med Staff - Active Staff] - As soon as possible Alejo Solitario MD [Primary Care Provider] - Activity Restrictions/Additional Instructions: Continue to drink lots of fluids. You were given a referral for urologist to follow-up. If your symptoms have resolved before I think it is completely safe for you to go on your trip. Disposition Disposition: Home, Self Care
[2022-12-25 05:16] LABS: Bacteria 1+ /hpf (None Seen)
[2022-12-25 05:20] LABS: Anion Gap 8 (5-15); BUN 28 mg/dL (7-18); BUN/Creat Ratio 20.7 RATIO (10-20); Calcium,Total 9.5 mg/dL (8.5-10.1); Chloride 106 mmol/L (98-107); Creatinine, Serum 1.35 mg/dL (0.55-1.02); EST Glomerular Filtration Rate 43 mL/min (>60); Est Glom Filt Rate - Afr Amer 52 mL/min (>60); Estimated Creatinine Clearance 35.49 ml/min; Glucose 111 mg/dL (74-106); Potassium 4.5 mmol/L (3.5-5.1); Sodium Level 141 mmol/L (136-145)
[2022-12-25] MEDS: oxyCODONE 5 MG Tablet PO (06:22)
[2022-12-25 06:39] VITALS: BP 118/68; PULSE 68; RESP 18; O2SAT 98
== END 2022-12-25 06:40 | disposition home or self-care (01) ==
PROVIDERS: Emergency Provider Emergency Medicine; PCP Family Medicine; Visit Provider Emergency Medicine
DX: N13.2 Hydronephrosis with renal and ureteral calculous obstruction (principal); N23 Unspecified renal colic; Z87.891 Personal history of nicotine dependence; N18.9 Chronic kidney disease, unspecified; Z87.442 Personal history of urinary calculi
CPT/HCPCS: 74176; 80048; 81001; 85025; 96361; 96374; 99284; J7030; A4216

== ENCOUNTER → 2023-01-18 | Outpatient (CLI) | payer OTHER, SELFPAY ==
--- NOTE | 2023-01-18 16:27 | RAD_ITS ---
STUDY: X-RAY - ABDOMEN/PELVIS REASON FOR EXAM: Female, 57 years old. KUB- STONES TECHNIQUE: Single AP view of the abdomen / pelvis. COMPARISON: None. FINDINGS: Normal visualized lung bases. There is an abundance of fecal material throughout the colon. There is no demonstrated free abdominal air. The visualized liver, spleen and kidneys are grossly normal in size and morphology. There are calcified phleboliths in the pelvis. Normal visualized osseous structures. RAD/Abdomen Single View IMPRESSION: No acute findings, retained stool Electronically Signed: Man Rios MD at 9:54 EST ,
== END | disposition home or self-care (01) ==
PROVIDERS: PCP Family Medicine; Referring Provider Urology; Visit Provider Urology
DX: N20.0 Calculus of kidney (principal)
CPT/HCPCS: 74018

== ENCOUNTER 2023-02-07 11:47 | Day surgery (SDC) | payer OTHER, SELFPAY ==
[2023-02-07 13:05] VITALS: BP 146/74; PULSE 54; RESP 16; TEMP 36.2; O2SAT 98; BMI 22.5
[2023-02-07] MEDS: Lactated Ringers 1,000 ML 15 ML IV (13:19)
--- NOTE | 2023-02-07 13:48 | PCM.OPRPT ---
Report of Operation Date of Procedure: 02/07/23 Pre-Operative Diagnosis: Right renal calculus Post-Operative Diagnosis: Same Surgery/Procedure Performed:: Right renal extracorporal shockwave lithotripsy Surgeon: Avelina Rios Type of Anesthesia: General Description of Procedure: The patient is a 57-year-old female with a known right renal calculus who now presents for surgical intervention. Informed consent was obtained. The patient was taken to the operating room and placed on the lithotripsy table. Anesthesia monitored the head, neck, airway, IV access and vital signs throughout the case. Once anesthesia was appropriately administered, the patient was aligned with the lithotripter. The stone was clearly visible. 3000 shocks were applied to the calculus which appeared to be well fragmented at the conclusion of the case. The patient was then awakened and taken to the recovery room in good condition. There were no complications during this procedure. Complications None Admit VTE Documentation VTE Present on Admission: Yes VTE Mechan Device Prophylaxis: SCD's VTE Pharm Prophylaxis ordered?: No Reason prophylaxis not ordered:: Treatment Not Indicated
--- NOTE | 2023-02-07 13:51 | DCINST_ITS ---
Discharge Instructions Diet Discharge Diet: No restrictions Activity Discharge Activity: Return to Normal Activity and May Not Drive (While taking pain medication) May resume sexual activity in: No Restrictions Dressing / Incision Call your doctor if you observe: Fever of 101 or Higher, Inability to urinate and Inability to have a bowel movement Follow Up Care Please Follow Up With: Avelina Rios MD When: Call the office for appointment to be seen in 2 to 3 weeks with a KUB Test Results: Test results from this visit will be discussed in further detail at your follow- up appointment, if applicable. Discharge Plan Admission Attending Provider: Avelina Rios Primary Care Provider: Alejo Solitario Discharge Orders/Prescriptions Prescriptions: New oxycodone-acetaminophen [Percocet] 5-325 mg tablet 1 tab PO Q8H PRN (Reason: pain) 3 Days Qty: 10 0RF cephalexin [cephalexin] 500 mg capsule 500 mg PO Q12 3 Days Qty: 6 0RF Continued oxycodone-acetaminophen 1 TABLET tablet 1 tab PO Q6H PRN PRN (Reason: severe pain) 5 Days Qty: 20 0RF multivitamin Tablet 1 tab PO DAILY clobetasol 0.05 % Cream 1 applic TOPICAL PRN PRN (Reason: Rash) Vitamin B-12 50 mcg Tablet 50 mcg PO DAILY potassium citrate 10 mEq (1,080 mg) tablet extended release 10 meq PO DAILY Label Comments: TAKE 1 TABLET EVERY DAY BY MOUTH FOR 90 DAYS estradiol 0.01 % (0.1 mg/gram) cream 1 applic VAGINAL .TWICE WEEKLY Label Comments: Use 1 gram vaginally two times a week DIRECTED Probiotic 10 billion cell Capsule 10,000 mmu cells PO DAILY Gemtesa 75 mg Tablet 75 mg PO DAILY Referrals / Follow Up: lAejo Solitario MD [Primary Care Provider] - Disposition Disposition (needs filled in before D/C Order can be placed): Home, Self Care
[2023-02-07] MEDS: Cefazolin 2 GM in 0.9% Normal Saline 100 ML IV (14:26)
[2023-02-07 15:24] VITALS: BP 141/70; BP 146/74; PULSE 72; RESP 14; TEMP 36.2; O2SAT 97
[2023-02-07 15:30] VITALS: BP 137/74; BP 146/74; PULSE 73; RESP 14; O2SAT 100
[2023-02-07 15:45] VITALS: BP 146/74; BP 150/79; PULSE 71; RESP 15; TEMP 36.2; O2SAT 100
[2023-02-07 16:51] VITALS: BP 130/80; BP 146/74; PULSE 67; RESP 16; TEMP 36.8; O2SAT 98
== END 2023-02-07 16:59 | disposition home or self-care (01) ==
LOC: SDC 11:57 → AC 12:11
PROVIDERS: PCP Family Medicine; Referring Provider Urology; Visit Provider Urology
PROC: (CPT 50590; principal; 2023-02-07 14:00)
DX: N20.0 Calculus of kidney (principal); Z87.19 Personal history of other diseases of the digestive system; Z87.448 Personal history of other diseases of urinary system; Z78.0 Asymptomatic menopausal state; Z90.722 Acquired absence of ovaries, bilateral; Z90.710 Acquired absence of both cervix and uterus; N32.81 Overactive bladder; N39.3 Stress incontinence (female) (male); N94.10 Unspecified dyspareunia
CPT/HCPCS: 50590; 00873; J7120; J2405

== ENCOUNTER → 2023-02-22 | Outpatient (CLI) | payer OTHER, SELFPAY ==
--- NOTE | 2023-02-22 09:17 | RAD_ITS ---
STUDY: X-RAY - ABDOMEN/PELVIS REASON FOR EXAM: Female, 57 years old. Flank pain TECHNIQUE: Two AP supine views of the abdomen and pelvis. COMPARISON: None. FINDINGS: Normal visualized lung bases. There is an unremarkable bowel gas pattern. There is no demonstrated free abdominal air. The visualized liver, spleen and kidneys are grossly normal in size and morphology. Faint calcifications overlying both renal shadows suggesting nephrolithiasis There are calcified phleboliths in the pelvis. Normal visualized osseous structures. RAD/Abdomen Single View IMPRESSION: Punctate calcifications overlying both renal shadows suggesting nephrolithiasis Retained stool throughout the colon Electronically Signed: Man Rios MD at 9:37 EDT ,
== END | disposition home or self-care (01) ==
PROVIDERS: PCP Family Medicine; Referring Provider Urology; Visit Provider Urology
DX: N20.0 Calculus of kidney (principal); N39.0 Urinary tract infection, site not specified
CPT/HCPCS: 74018

== ENCOUNTER 2023-03-28 06:47 | Day surgery (SDC) | payer OTHER, SELFPAY ==
[2023-03-28 07:09] VITALS: BP 100/71; PULSE 55; RESP 16; TEMP 36.4; O2SAT 98; BMI 20.5
[2023-03-28] MEDS: Lactated Ringers 1,000 ML 15 ML IV (07:28)
--- NOTE | 2023-03-28 08:25 | CALC_PTH ---
PATIENT: BERTHA GARCIA LOC: [facility] [place] U#:[id number] AGE/SX: 57/F ROOM: RE03/28/[address]: Dr. Avelina Rios MD : 1965 BED: DIS: 03/28/2023 SPEC #: [id number] RECD: 03/28/23 13:35 STATUS: MARCIA HANSEN #: [id number] ASHWIN: 03/28/23 08:[address]: Avelina Rios DEPT: SURGICAL PATHOLOGY RECD BY: Abbey Bermudez ENTERED: 03/29/23 07:16 SP TYPE: Calculi OTHR DR: Dr. Alejo Solitario MD Tissues: CALCULI Procedures: Surgery Specimen Level I HEADER OPERATION: Cysto, ureteroscopy, laser lithotripsy, basket extraction, stent PRE-OP DIAGNOSIS: Renal stone, overactive bladder TISSUE SUBMITTED: Renal stone left kidney GROSS DIAGNOSIS Left renal stone, removal: Fragments of unremarkable calculi (gross diagnosis only). AM:pankaj 04/01/2023 COMMENT The calculus is submitted in its entirety for chemical stone analysis. The results from this study will be reported separately. GROSS DESCRIPTION Received without fixative labeled with the patient's name and designated renal stone left kidney. The specimen consists of two irregular fragments of dark ellsworth calcified material measuring in aggregate 0.2 x 0.1 x 0.1 cm. The entire specimen is submitted for stone analysis. / AM:pankaj 03/29/2023 CPT: 93178
--- NOTE | 2023-03-28 08:33 | DCINST_ITS ---
Discharge Instructions Diet Discharge Diet: No restrictions Activity Discharge Activity: Return to Normal Activity Dressing / Incision Call your doctor if you observe: Fever of 101 or Higher, Inability to urinate and Inability to have a bowel movement Follow Up Care Please Follow Up With: Avelina Rios MD When: Call office for appointment Test Results: Test results from this visit will be discussed in further detail at your follow- up appointment, if applicable. Discharge Plan Admission Attending Provider: Avelina Rios Primary Care Provider: Alejo Solitario Discharge Orders/Prescriptions Prescriptions: New oxycodone-acetaminophen [Percocet] 5-325 mg tablet 1 tab PO Q8H PRN (Reason: pain) 3 Days Qty: 10 0RF cephalexin [cephalexin] 500 mg capsule 500 mg PO Q12 3 Days Qty: 6 0RF phenazopyridine [Pyridium] 200 mg tablet 200 mg PO TID PRN PRN (Reason: Bladder Spasms) 7 Days Qty: 30 0RF oxycodone-acetaminophen [Percocet] 5-325 mg tablet 1 tab PO Q8H PRN (Reason: pain) 3 Days Qty: 10 0RF Continued multivitamin Tablet 1 tab PO DAILY clobetasol 0.05 % Cream 1 applic TOPICAL PRN PRN (Reason: Rash) Vitamin B-12 50 mcg Tablet 50 mcg PO DAILY potassium citrate 10 mEq (1,080 mg) tablet extended release 10 meq PO DAILY Label Comments: TAKE 1 TABLET EVERY DAY BY MOUTH FOR 90 DAYS estradiol 0.01 % (0.1 mg/gram) cream 1 applic VAGINAL .TWICE WEEKLY Label Comments: Use 1 gram vaginally two times a week DIRECTED Probiotic 10 billion cell Capsule 10,000 mmu cells PO DAILY Gemtesa 75 mg Tablet 75 mg PO DAILY Referrals / Follow Up: Alejo Solitario MD [Primary Care Provider] - Disposition Disposition (needs filled in before D/C Order can be placed): Home, Self Care
[2023-03-28] MEDS: Cefazolin 2 GM in 0.9% Normal Saline 100 ML IV (08:34)
[2023-03-28] MEDS: Lubricating Jelly 60 GM Tube 30 GM (08:53)
[2023-03-28 09:22] VITALS: BP 100/71; BP 130/66; PULSE 74; RESP 16; TEMP 36.1; O2SAT 96
[2023-03-28 09:30] VITALS: BP 100/71; BP 115/94; PULSE 72; RESP 16; O2SAT 98
--- NOTE | 2023-03-28 09:31 | OP.PCM_ITS ---
Report of Operation Date of Procedure: 03/28/23 Pre-Operative Diagnosis: Left renal stones Post-Operative Diagnosis: Same Surgery/Procedure Performed:: Cystoscopy, left ureteroscopy, stone basket retrieval, left ureteral stent insertion Surgeon: Avelina Rios Type of Anesthesia: General Specimen's removed: Renal calculus Description of Procedure: The patient is a 57-year-old female with left flank pain found to have small left renal stones without hydronephrosis. They were too small to be seen on KUB. She now presents for ureteroscopy and removal. Informed consent was obtained. The patient was taken to the operating room and placed in on the operating room table. Anesthesia monitored the head, neck, airway, IV access and vital signs throughout the case. Once anesthesia was appropriate ministered the patient was placed into dorsolithotomy position was prepped and draped in usual sterile fashion. The cystoscope was inserted through the urethra under d irect visualization into the urinary bladder. There were no mucosal abnormalities identified. The left ureteral orifice was intubated with and 0.035 Glidewire. This was inserted all the way to the left renal pelvis is seen on fluoroscopy. A second wire was passed alongside it the same size. At this time the cystoscope was removed and the ureteroscope was inserted over the wire and into the renal pelvis without difficulty. On examination 1 stone was identified approximately 1 to 2 mm in size still embedded within the papula. In the lower pole a larger three 8 mm stone was identified and was removed with a stone basket. On reexamination, an attempt was made to remove the 1 to 2 mm stone and this was unsuccessful. At this time the decision was made to place a left ureteral stent. The left ureter was visualized in its entirety upon removal of the ureteroscope and there were no areas of injury or abnormality identified. A 4.5 x 24 cm JJ stent was inserted over the remaining safety wire with good positioning in the renal pelvis as well as the urinary bladder. The patient's bladder was emptied and she was awakened and taken to the recovery room in good condition. There were no complications during this procedure. Grafts/Implants Used: 4.5 x 24 cm JJ stent Complications None Admit VTE Documentation VTE Present on Admission: Yes VTE Mechan Device Prophylaxis: SCD's VTE Pharm Prophylaxis ordered?: No Reason prophylaxis not ordered:: Treatment Not Indicated
[2023-03-28 09:42] VITALS: BP 100/71; BP 133/88; PULSE 68; RESP 16; TEMP 36.3; O2SAT 98
[2023-03-28 10:12] VITALS: BP 100/71
[2023-04-14 16:01] LABS: Source Left Kidney
== END 2023-03-28 10:16 | disposition home or self-care (01) ==
LOC: SDC 06:47 → AC 06:49
PROVIDERS: PCP Family Medicine; Referring Provider Urology; Visit Provider Urology
PROC: (CPT 52352; principal; 2023-03-28 08:15)
DX: N20.0 Calculus of kidney (principal); N32.81 Overactive bladder; N39.3 Stress incontinence (female) (male); N18.9 Chronic kidney disease, unspecified; Z87.891 Personal history of nicotine dependence
CPT/HCPCS: 52352; 52356; 00918; 76000; 82360; 88300; C2625; J2405

== ENCOUNTER → 2023-04-02 | Outpatient (CLI) | payer OTHER, SELFPAY ==
--- NOTE | 2023-04-02 12:55 | CT_ITS ---
STUDY: CT ABDOMEN AND PELVIS WITHOUT CONTRAST REASON FOR EXAM: Female, 57 years old. POST OP PAIN, KIDNEY STONE RADIATION DOSAGE (If Supplied By Facility): CTDIvol = ( 5.16 ) mGy, DLP = ( 220.07 ) mGycm TECHNIQUE: Transaxial images were obtained from the dome of the diaphragm to the symphysis pubis without oral contrast, and without intravenous contrast. Sagittal and coronal images were reconstructed. Individualized dose optimization techniques were used for this CT. COMPARISON: 12/25/2022 FINDINGS: Lung bases show underlying emphysema without a superimposed process The visualized portions of the heart are within normal limits. Normal liver. Normal gallbladder and extrahepatic biliary system. Normal spleen. Normal pancreas. Normal bilateral adrenal glands. There is left-sided hydronephrosis and hydroureter with a minimal amount of perinephric and periureteral inflammatory stranding. No obstructing stone is identified. Findings likely due to residual inflammation from a left renal stent that was removed yesterday No obstructive uropathy or solid lesion in the right kidney. There are bilateral nonobstructing renal stones. Normal visualized stomach. Normal small intestine. Retained stool noted throughout the colon with scattered sigmoid diverticula, no CT evidence of acute diverticulitis. There is non-visualization of the appendix. There is diffuse atherosclerotic calcification of the abdominal aorta, without a demonstrated aneurysm. Normal inferior vena cava. Normal retroperitoneum. Normal urinary bladder. There is absence of the uterus consistent with a prior hysterectomy. Normal abdominal wall. There are diffuse degenerative changes of the visualized lumbar spine, and pelvis. CT/Abdomen/Pelvis without Cont IMPRESSION: Left-sided hydronephrosis and hydroureter without obstructing stone. Findings likely due to recent removal of a left renal stent. Stable bilateral nonobstructing nephrolithiasis Extensive sigmoid diverticulosis, an underlying lesion cannot be excluded. There is retained stool throughout the majority of the colon. Degenerative bony changes Electronically Signed: Man Rios MD at 14:31 EDT ,
== END | disposition home or self-care (01) ==
LOC: CT 12:54
PROVIDERS: PCP Family Medicine; Referring Provider Urology; Visit Provider Urology
DX: N20.0 Calculus of kidney (principal); R10.9 Unspecified abdominal pain
CPT/HCPCS: 74176

== ENCOUNTER → 2023-07-26 | Outpatient (CLI) | payer OTHER, SELFPAY ==
[2023-07-26 09:32] LABS: Anion Gap 2 (5-15); BUN 32 mg/dL (7-18); Calcium,Total 9.7 mg/dL (8.5-10.1); Chloride 107 mmol/L (98-107); Creatinine, Serum 1.39 mg/dL (0.55-1.02); EST Glomerular Filtration Rate 41 mL/min (>60); Est Glom Filt Rate - Afr Amer 50 mL/min (>60); Glucose 114 mg/dL (74-106); Potassium 4.2 mmol/L (3.5-5.1); Sodium Level 140 mmol/L (136-145)
== END | disposition home or self-care (01) ==
LOC: LAB 07:45
PROVIDERS: PCP Family Medicine; Referring Provider Internal Medicine Nephrology; Visit Provider Internal Medicine Nephrology
DX: N18.31 Chronic kidney disease, stage 3a (principal)
CPT/HCPCS: 36415; 80048

== ENCOUNTER → 2023-08-06 | Outpatient (CLI) | payer OTHER, SELFPAY ==
[2023-08-06 07:56] LABS: Albumin, Serum 3.6 g/dL (3.2-5.0); BUN 25 mg/dL (7-18); BUN/Creat Ratio 21.7 RATIO (10-20); Calcium,Total 8.9 mg/dL (8.5-10.1); Chloride 107 mmol/L (98-107); Creatinine, Serum 1.15 mg/dL (0.55-1.02); EST Glomerular Filtration Rate 51 mL/min (>60); Est Glom Filt Rate - Afr Amer 62 mL/min (>60); Glucose 118 mg/dL (74-106); Phosphorus 3.3 mg/dL (2.5-4.9); Sodium Level 140 mmol/L (136-145)
== END | disposition home or self-care (01) ==
PROVIDERS: PCP Family Medicine; Referring Provider Internal Medicine Nephrology; Visit Provider Internal Medicine Nephrology
DX: N20.0 Calculus of kidney (principal)
CPT/HCPCS: 36415; 80069

== ENCOUNTER → 2023-08-08 | Outpatient (CLI) | payer OTHER, SELFPAY ==
[2023-08-08 07:47] LABS: (24 HR) Urine Calcium 190.8 mg/24 HR (42.0-353.0); 24HR UR TOTAL VOLUME 1200 ml; 24Hr.Lytes Total Volume 1200 mL; Calcium Urine pH Range 1; Sodium 24 HR UR 125 mmol/24h (40-220); Urine Calcium (Random) 15.9 (Not Estab.); Urine Sodium 104 mmol/L (Not Establ.)
== END | disposition home or self-care (01) ==
LOC: LABSPEC 06:59
PROVIDERS: PCP Family Medicine; Referring Provider Internal Medicine Nephrology; Visit Provider Internal Medicine Nephrology
DX: N20.0 Calculus of kidney (principal)
CPT/HCPCS: 81050; 82340; 84300

== ENCOUNTER → 2023-08-09 | Outpatient (CLI) | payer OTHER, SELFPAY ==
[2023-08-13 00:06] LABS: Citric Acid, 24Ur 423 mg/24 hr (320-1240); Citric Acid, Ur 273 mg/L (Undefined)
== END | disposition home or self-care (01) ==
LOC: LABSPEC 07:03
PROVIDERS: PCP Family Medicine; Referring Provider Internal Medicine Nephrology; Visit Provider Internal Medicine Nephrology
DX: N20.0 Calculus of kidney (principal)
CPT/HCPCS: 81050; 82507

== ENCOUNTER → 2023-10-28 | Outpatient (CLI) | payer OTHER, SELFPAY ==
--- NOTE | 2023-10-28 09:40 | RAD_ITS ---
STUDY: X-RAY - ABDOMEN/PELVIS REASON FOR EXAM: Female, 57 years old. KUB- STONES TECHNIQUE: Single AP view of the abdomen / pelvis. COMPARISON: None. FINDINGS: Normal visualized lung bases. There is an unremarkable bowel gas pattern. The visualized liver, spleen and kidneys are grossly normal in size and morphology. There are calcified phleboliths in the pelvis. Normal visualized osseous structures. RAD/Abdomen Single View IMPRESSION: Normal x-ray examination of the abdomen and pelvis. Electronically Signed: Tai Mojica MD at 22:21 EST ,
== END | disposition home or self-care (01) ==
LOC: MTRAD 09:39
PROVIDERS: PCP Family Medicine; Referring Provider Urology; Visit Provider Urology
DX: N20.0 Calculus of kidney (principal)
CPT/HCPCS: 74018

== ENCOUNTER → 2024-07-30 | Outpatient (CLI) | payer OTHER, SELFPAY ==
--- NOTE | 2024-07-30 | COLBX_PTH ---
PATIENT: BERTHA GARCIA LOC: [facility] #:[id number] AGE/SX: 58/F ROOM: RE07/30/[address]: Dr. Marcial Sanchez MD : 1965 BED: DIS: 07/30/2024 SPEC #: [id number] RECD: 07/30/24 14:55 STATUS: MARCIA REGinny #: [id number] ASHWIN: 07/30/24 00:[address]: Marcial Sanchez DEPT: SURGICAL PATHOLOGY RECD BY: Abbey Bermudez ENTERED: 07/31/24 12:32 SP TYPE: COLON BX ZAYDA DR: Dr. Alejo Solitario MD Tissues: A - Ileum, NOS B - COLON BIOPSY Procedures: Trichrome (control) Special Stain Group I Surgery Specimen Level IV HEADER OPERATION: Colonoscopy PRE-OP DIAGNOSIS: Diarrhea TISSUE SUBMITTED: A- Terminal ileum biopsy, B- Random colon biopsy MICROSCOPIC DIAGNOSIS A. Terminal ileum, biopsy: No pathologic change. B. Colon, random biopsy: Collagenous colitis. See comment. / 08/03/2024 COMMENT Trichrome stain with matched control was used in the evaluation of this case and shows a thickened basal plate. MICROSCOPIC DESCRIPTION Slides are reviewed. GROSS DESCRIPTION A. Received in fixative is one container labeled with the patient's name and designated Terminal ileum biopsy. The specimen consists of one irregular fragment of light ellsworth soft tissue that measures 0.6 x 0.3 x 0.1 cm. The specimen is totally submitted in one cassette. B. Received in fixative is one container labeled with the patient's name and designated Random colon biopsy. The specimen consists of multiple irregular fragments of light ellsworth soft tissue that in aggregate measure 2.5 x 0.5 x 0.1 cm. The specimen is totally submitted in one cassette. 07/31/2024 TC:3 CPT:52509t7,08426
== END | disposition home or self-care (01) ==
PROVIDERS: PCP Family Medicine; Referring Provider Surgery; Visit Provider Surgery
DX: K52.831 Collagenous colitis (principal)
CPT/HCPCS: 88305; 88312

== ENCOUNTER 2024-11-07 10:32 | Emergency (ER) | payer OTHER, SELFPAY ==
[2024-11-07 10:33] VITALS: BP 114/64; PULSE 70; RESP 18; TEMP 36.9; O2SAT 98; BMI 21.1
--- NOTE | 2024-11-07 10:44 | CT_ITS ---
HISTORY: Kidney Stone. TECHNIQUE: Helically acquired images were obtained of the abdomen and pelvis without oral or IV contrast. A radiation dose optimization technique was used for this scan. 437 images. COMPARISON: 04/02/2023 FINDINGS: LOWER CHEST: Chronic emphysema in the lung bases. BOWEL: Mild fluid in the small bowel and colon. Bowel including appendix nondilated. Dense inspissated material in the appendix without periappendiceal inflammation. Colonic diverticulosis without focal pericolonic inflammatory change. PERITONEUM: No significant free fluid. LIVER: Unremarkable. GALLBLADDER/BILIARY TREE: Gallbladder present. SPLEEN/PANCREAS/ADRENAL GLANDS: Unremarkable. KIDNEYS AND URETERS: 2 mm left lower pole calculi. Very mild hydronephrosis and hydroureter with a 2 mm calculus in the very distal ureterovesical junction. 2-3 mm right lower pole calculi without hydronephrosis. VESSELS: No abdominal aortic aneurysm. Mild atherosclerosis. PELVIC ORGANS: Absent uterus. BONES: Degenerative change. CT/Abdomen/Pelvis without Cont IMPRESSION: Mild left hydronephrosis secondary to a 2 mm calculus in the very distal UVJ. Bilateral nephrolithiasis. Mild gastroenteritis/diarrheal illness with mild fluid distention of bowel. Colonic diverticulosis without acute diverticulitis. Electronically Signed: Leora Ag MD at 13:24 EST ,
[2024-11-07] MEDS: Ketorolac 15 MG/ML Vial IV (10:54)
[2024-11-07] MEDS: 0.9% Normal Saline (1000mL) 1,000 ML 250 ML IV (10:54)
[2024-11-07] MEDS: Morphine 4 MG/ML Syringe IV (10:55)
[2024-11-07] MEDS: Ondansetron 4 MG/2 ML Vial IV (10:55)
[2024-11-07 11:02] LABS: Absolute Lymphocyte Count 1.46 X10^3/uL (0.83-4.51); Absolute Neutrophil Count 9.3 X10^3/uL (2.0-7.7); Basophil# 0.04 X10^3/uL; Basophil% 0.3 % (0-1); Eosinophil# 0.04 X10^3/uL; Eosinophils% 0.3 % (0-5); Hematocrit 41.3 % (37-47); Hemoglobin 13.4 g/dL (12.0-15.0); Lymphocyte # 1.46 X10^3/ul (0.83-4.51); Lymphocyte % 12.8 % (19-41); Mean Corp Hgb Conc 32.4 g/dL (32-36); Mean Corpuscular Hgb 30.2 pg (27.0-32.0); Mean Platelet Vol. 10.4 fl (6.2-12.0); Monocyte# 0.57 X10^3/uL; NRBC Flagged by Analyzer 0 % (0-5); Neutrophil # 9.28 X10^3/uL (2.7-7.7); Neutrophil % 81.2 % (47-70); Platelet Count 260 K/mm3 (150-450); RBC Distribution Width CV 12.9 % (11.6-14.6); RBC Distribution Width SD 43.8 fl (35.1-43.9); Red Blood Count 4.44 M/mm3 (4.2-5.4); White Blood Count 11.4 K/mm3 (4.4-11.0)
[2024-11-07 11:13] LABS: Anion Gap 4 (5-15); BUN 30 mg/dL (7-18); BUN/Creat Ratio 23.1 RATIO (10-20); Chloride 106 mmol/L (98-107); EST Glomerular Filtration Rate 44 mL/min (>60); Est Glom Filt Rate - Afr Amer 54 mL/min (>60); Glucose 138 mg/dL (74-106); Sodium Level 140 mmol/L (136-145)
[2024-11-07 11:32] VITALS: PULSE 89; RESP 16; O2SAT 99
--- NOTE | 2024-11-07 11:42 | EX.ED.DYSGE1 ---
HPI History of Present Illness Chief Complaint: Flank Pain Informant: patient Narrative Narrative: Patient is a 58-year-old female significant history of kidney stones, follows with Dr. Rios and Dr. Storey. She underwent lithotripsy as well as basket removal with stents last year. She is presenting today with left flank pain and concern for recurrent kidney stone. Patient states that last night she had severe low back pain. Today she is having a sharp stabbing pain more in her pelvic/vaginal region. She has associated nausea and vomiting. She denies any blood in her vomit. She denies any change with urination states it is clear. She states this feels like prior kidney stones. Did not take any symptoms prior to arrival. Came in for further evaluation. No she is otherwise been feeling well. No report of any fever or chills, chest pain or viral symptoms. No recent change in bowel movements. Does have a history of diverticulosis but states this does not feel like diverticulitis. [facility] Medical History Wears contact lenses Wears glasses Post-menopausal Cancer Alcohol use History of renal disease Kidney stones History of diverticulitis Former smoker History of stress test Cardiology follow-up encounter Kidney stones Home Medications ?Medication ?Instructions ?Recorded ?Last Taken ?Type Lactobacillus acidophilus 10 10,000 mmu cells PO DAILY 02/01/23 Unknown History billion cell capsule (Probiotic) clobetasol 0.05 % topical cream 1 applic topical PRN PRN Rash 02/01/23 Unknown History cyanocobalamin (vitamin B-12) 50 50 mcg PO DAILY 02/01/23 Unknown History mcg tablet (Vitamin B-12) estradiol 0.01% (0.1 mg/gram) 1 applic vaginal .TWICE WEEKLY 02/01/23 Unknown History vaginal cream multivitamin 1 tab PO DAILY 02/01/23 Unknown History potassium citrate 10 mEq (1,080 10 meq PO DAILY 02/01/23 Unknown History mg) tablet,extended release vibegron 75 mg tablet (Gemtesa) 75 mg PO DAILY 02/01/23 Unknown History cephalexin 500 mg capsule 500 mg PO Q12 post-operative 3 03/28/23 Unknown Rx days #6 CAPSULES oxycodone-acetaminophen 5 mg-325 1 tab PO Q8H PRN pain 3 days #10 03/28/23 Unknown Rx mg tablet (Percocet) tabs phenazopyridine 200 mg tablet 200 mg PO TID PRN PRN Bladder 03/28/23 Unknown Rx (Pyridium) Spasms 7 days #30 tabs tamsulosin 0.4 mg capsule (Flomax) 0.4 mg PO DAILY #7 caps 11/07/24 Unknown Rx Allergy/AdvReac Type Severity Reaction Status Date / Time nitrofurantoin (From Allergy Hives Verified 11/07/24 10:33 Macrobid) Yeast Allergy Other Verified 11/07/24 10:33 Surgical History Hx of cystoscopy H/O bilateral oophorectomy S/P complete hysterectomy H/O lithotripsy Social History Smoking Status: Former smoker ROS ROS ED Constitutional Constitutional ED: Denies chills or fever(s) Cardiovascular Cardiovascular: Denies chest pain Respiratory/Chest Respiratory/Chest: Denies cough Gastrointestinal Gastrointestinal: Reports abdominal pain, nausea and vomiting; Denies constipation or diarrhea Genitourinary Genitourinary ED: Denies dysuria, hematuria or urinary frequency Musculoskeletal Musculoskeletal: Reports back pain; Denies arthralgias or myalgias Integumentary Denies rash Neurologic Neurologic: Denies headache(s) EXAM Physical Exam Const Vital Signs: 11/07/24 10:33 11/07/24 11:32 11/07/24 12:00 Temperature 98.4 F Temperature Source Oral Pulse Rate 70 89 76 Respiratory Rate 18 16 24 H Blood Pressure 114/64 134/78 H Blood Pressure Mean 80 96 Pulse Ox 98 99 99 Oxygen Delivery Method Room Air Room Air Room Air 11/07/24 13:00 11/07/24 13:52 Temperature 97.8 F Temperature Source Pulse Rate 68 78 Respiratory Rate 14 16 Blood Pressure 124/64 H 129/78 H Blood Pressure Mean 84 95 Pulse Ox 98 100 Oxygen Delivery Method Room Air Positive well nourished and well developed General Appearance ED: well developed and NAD HEENT Reports moist mucous membranes Eyes PERRL Neck supple and no JVD Chest Wall inspection of chest normal Resp normal respiratory effort and clear to auscultation bilaterally Cardio regular rate and regular rhythm GI normal to inspection, nondistended, normoactive bowel sounds and non-tender Back/Spine no CVA tenderness Thoracic Spine / Upper Back: Negative for thoracic spinal tenderness or paraspinal muscle tenderness Lumbar Spine / Lower Back: Negative for lumbar spinal tenderness Extremity normal to inspection Neuro oriented x3 Psych mental status grossly normal Skin no wounds Skin Narrative: Scattered erythematous rash to the left side of the face?patient reports new detergent on her sheets. There is also scattered erythematous rash on her back. Looks more consistent with a contact dermatitis. Rash not consistent with shingles (no vesicles or dermatomal distribution). It is nontender. MDM MDM MDM Narrative Medical decision making narrative: Patient evaluated for left-sided flank pain started in her lower back and radiated to her pelvis/vaginal area. Feels like prior kidney stones. Patient given Toradol, Zofran and morphine as well as IV fluids. She is feeling much better after this. So exam is quite benign. Does have extensive history of kidney stones. Differential includes renal colic, pyelonephritis, diverticulitis, gastroenteritis. She has normal neurovascular exam and low suspicion for dissection or renal infarct. Workup shows a very mild leukocytosis 11.4 on her CBC which is suspect is reactive. Urinalysis is not consistent with infection. Creatinine is 1.3 which is baseline for her. No other electrolyte abnormalities. CT of the abdomen pelvis shows mild left hydronephrosis secondary to 2 mm calculus at the very distal UVJ with bilateral nephrolithiasis. There is mild gastroenteritis/diarrheal illness. Patient informed of findings. Her pain is resolved. She think she is passed the stone. Will follow-up with Dr. Rios. Will be given a prescription for Flomax. States she does not need Zofran. Patient will be given discharge with a short course of Flomax. She states she does not need any nausea or pain medicine at home. Given return precautions. Discharged home in stable and improved condition. Lab Data Attestation: I reviewed the patient's lab results. Labs: Laboratory Results - last 24 hr 11/07/24 11/07/24 10:45 11:46 WBC 11.4 H RBC 4.44 Hgb 13.4 Hct 41.3 MCV 93.0 MCH 30.2 MCHC 32.4 RDW Std Deviation 43.8 RDW Coeff of Arlene 12.9 Plt Count 260 MPV 10.4 Immature Gran % (Auto) 0.400 Neut % (Auto) 81.2 H Lymph % (Auto) 12.8 L Gibson % (Auto) 5.0 Eos % (Auto) 0.3 Baso % (Auto) 0.3 Absolute Neuts (auto) 9.3 H Absolute Lymphs (auto) 1.46 Nucleated RBC % 0 Sodium 140 Potassium 4.0 Chloride 106 Carbon Dioxide 30.0 Anion Gap 4 L BUN 30 H Creatinine 1.30 H Estim Creat Clear Calc 36.40 Est GFR (MDRD) Af Amer 54 L Est GFR (MDRD) Non-Af 44 L BUN/Creatinine Ratio 23.1 H Glucose 138 H Calcium 10.0 Urine Color Straw Urine Clarity Clear Urine pH 6.0 Ur Specific Burr 1.015 Urine Protein 15 H Urine Glucose (UA) Normal Urine Ketones Negative Urine Occult Blood Negative Urine Nitrite Negative Urine Bilirubin Negative Urine Urobilinogen Normal Ur Leukocyte Esterase Negative Urine RBC 0 SEEN Urine WBC 0-5 SEEN Ur Squamous Epith Cells 0-5 SEEN Urine Bacteria 1+ Urine Mucus 0 SEEN Radiography Diagnostic Testing: Clinical Impression(s) from Imaging Studies Abdomen/Pelvis CT 11/07/24 10:44 IMPRESSION: Mild left hydronephrosis secondary to a 2 mm calculus in the very distal UVJ. Bilateral nephrolithiasis. Mild gastroenteritis/diarrheal illness with mild fluid distention of bowel. Colonic diverticulosis without acute diverticulitis. Electronically Signed: Leora Ag MD at 13:24 EST Reading Location ID and State: [address] [place] [address] Tel , Service support , Discharge Plan Triage Chief Complaint: Flank Pain ED Provider: Pooja Ac Dx/Rx/DC Orders Clinical Impression: Kidney stones Instructions: ED Kidney Stone, Passed Prescriptions: New tamsulosin [Flomax] 0.4 mg capsule 0.4 mg PO DAILY Qty: 7 0RF No Action multivitamin Tablet 1 tab PO DAILY clobetasol 0.05 % Cream 1 applic TOPICAL PRN PRN (Reason: Rash) Vitamin B-12 50 mcg Tablet 50 mcg PO DAILY potassium citrate 10 mEq (1,080 mg) tablet extended release 10 meq PO DAILY Patient Comments: TAKE 1 TABLET EVERY DAY BY MOUTH FOR 90 DAYS estradiol 0.01 % (0.1 mg/gram) cream 1 applic VAGINAL .TWICE WEEKLY Patient Comments: Use 1 gram vaginally two times a week DIRECTED Probiotic 10 billion cell Capsule 10,000 mmu cells PO DAILY Gemtesa 75 mg Tablet 75 mg PO DAILY cephalexin [cephalexin] 500 mg capsule 500 mg PO Q12 3 Days Qty: 6 0RF phenazopyridine [Pyridium] 200 mg tablet 200 mg PO TID PRN PRN (Reason: Bladder Spasms) 7 Days Qty: 30 0RF oxycodone-acetaminophen [Percocet] 5-325 mg tablet 1 tab PO Q8H PRN (Reason: pain) 3 Days Qty: 10 0RF Primary Care Provider: Alejo Solitario Referrals: Avelina Rios MD [Med Staff - Active Staff] - 3-5 Days if not improving Alejo Solitario MD [Primary Care Provider] - Activity Restrictions/Additional Instructions: You have 2 mm kidney stone at the left UVJ (at the ureter just before it goes into the bladder). It is possible you passed the stone while here. Alternate ibuprofen and Tylenol for pain control. Follow-up with urology. If you have no further pain you do not need to take the Flomax but if returns I would start taking it. Print Language: Romansh Disposition Disposition: Home, Self Care
[2024-11-07 11:54] LABS: Mucous, Urine 0 SEEN /hpf (<or=2+); Red Blood Cells-Urine 0 SEEN /hpf (0-5)
[2024-11-07 11:57] LABS: Color, Urine Straw (Yellow); Glucose, Dipstick Normal (Normal); Ketone-Dipstick Negative (Negative); Leukocyte Esterase-Dipstick Negative /ul (Negative); Nitrite-Dipstick Negative (Negative); Occult Blood-Urine Negative /ul (Negative); Protein-Dipstick 15 mg/dl (Negative); Specific Gravity, Urine 1.015 (1.002-1.030); Urine Bilirubin Dipstick Negative (Negative); Urine Clarity Clear (Clear); Urine Urobilinogen Normal (Normal)
[2024-11-07 12:00] VITALS: BP 134/78; PULSE 76; RESP 24; O2SAT 99
[2024-11-07 12:03] LABS: Bacteria 1+ /hpf (None Seen); Squamous Epithelial Cells - UA 0-5 SEEN /hpf (5-10); White Blood Cells 0-5 SEEN /hpf (0-5)
[2024-11-07 13:00] VITALS: BP 124/64; PULSE 68; RESP 14; O2SAT 98
[2024-11-07 13:52] VITALS: BP 129/78; PULSE 78; RESP 16; TEMP 36.6; O2SAT 100
== END 2024-11-07 14:10 | disposition home or self-care (01) ==
PROVIDERS: Emergency Provider Emergency Medicine; PCP Family Medicine; Visit Provider Emergency Medicine
DX: N13.2 Hydronephrosis with renal and ureteral calculous obstruction (principal); K52.9 Noninfective gastroenteritis and colitis, unspecified; Z87.891 Personal history of nicotine dependence; Z90.710 Acquired absence of both cervix and uterus; Z87.442 Personal history of urinary calculi; Z87.19 Personal history of other diseases of the digestive system
CPT/HCPCS: 74176; 80048; 81001; 85025; 96361; 96374; 96375; 99282; A4216; J2405

== ENCOUNTER → 2024-12-23 | Outpatient (CLI) | payer OTHER, SELFPAY ==
[2024-12-23 17:05] LABS: Albumin, Serum 3.8 g/dL (3.2-5.0); BUN 29 mg/dL (7-18); BUN/Creat Ratio 25.7 RATIO (10-20); Calcium,Total 9.4 mg/dL (8.5-10.1); Chloride 106 mmol/L (98-107); Creatinine, Serum 1.13 mg/dL (0.55-1.02); EST Glomerular Filtration Rate 52 mL/min (>60); Est Glom Filt Rate - Afr Amer 63 mL/min (>60); Glucose 99 mg/dL (74-106); Phosphorus 3.3 mg/dL (2.5-4.9); Potassium 4.5 mmol/L (3.5-5.1); Sodium Level 140 mmol/L (136-145)
== END | disposition home or self-care (01) ==
PROVIDERS: PCP Family Medicine; Referring Provider Internal Medicine Nephrology; Visit Provider Internal Medicine Nephrology
DX: N18.31 Chronic kidney disease, stage 3a (principal); N20.0 Calculus of kidney
CPT/HCPCS: 36415; 80069

== ENCOUNTER → 2025-01-01 | Outpatient (CLI) | payer OTHER, SELFPAY ==
--- NOTE | 2025-01-01 13:51 | CT_ITS ---
PROCEDURE: ABDOMEN/PELVIS WITHOUT CONT REASON FOR EXAM: History of bilateral renal calculi. Follow-up examination. TECHNIQUE: Abdomen and pelvis CT without intravenous contrast. No oral contrast.. Multiple axial tomographic images were obtained without intravenous contrast administration. Coronal and sagittal reconstruction was obtained as well. COMPARISON: 1 FINDINGS: Noncontrast technique limits evaluation of the abdominal and pelvic viscera. Lung bases: Clear Liver: Unremarkable. Gallbladder: Unremarkable. Spleen: Unremarkable. Pancreas: Unremarkable. Adrenals: Unremarkable. Kidneys: Tiny nonobstructive left intrarenal calculi. Tiny nonobstructive right intrarenal calculi in the mid and lower pole calices. No evidence of the ureteral calcification or hydronephrosis. Bladder: Unremarkable. Reproductive Organs: Prior hysterectomy. Adnexal regions are unremarkable. Bowel: Unremarkable. Appendix: Normal. Lymph nodes: No suspicious lymph node enlargement. Vasculature: Major vascular structures are unremarkable. Peritoneum / Retroperitoneum: No ascites. No free air. Bones: Straightening of the normal lumbar lordosis. CT/Abdomen/Pelvis without Cont IMPRESSION: Stable small nonobstructive bilateral intrarenal calculi. No evidence of urete ral obstruction. No evidence of hydronephrosis. One or more dose reduction techniques were used (e.g., Automated exposure contr ol, adjustment of the mA and/or kV according to patient size, use of iterative reconstruction technique). Reading Location: [place] [id number]
== END | disposition home or self-care (01) ==
LOC: CT 13:48
PROVIDERS: PCP Family Medicine; Referring Provider Family Medicine; Visit Provider Urology
DX: N20.1 Calculus of ureter (principal)
CPT/HCPCS: 74176

== ENCOUNTER → 2025-01-04 | Outpatient (CLI) | payer OTHER, SELFPAY ==
[2025-01-04 17:57] LABS: 24HR UR TOTAL VOLUME 2300 ml; 24HR. Urine Creatinine 1.45 g/24 HR (0.70-1.90); 24Hr.Lytes Total Volume 2300 mL; Calcium Urine pH Range 1; Sodium 24 HR UR 214 mmol/24h (40-220); Urine Chloride 98 mmol/L (Not Establ.); Urine Chloride / 24 Hours 226 mmol/24h (110-250); Urine Sodium 93 mmol/L (Not Establ.)
== END | disposition home or self-care (01) ==
PROVIDERS: PCP Family Medicine; Referring Provider Internal Medicine Nephrology; Visit Provider Internal Medicine Nephrology
DX: N20.0 Calculus of kidney (principal)
CPT/HCPCS: 81050; 82340; 82436; 82570; 84133; 84300

== ENCOUNTER → 2025-01-09 | Outpatient (CLI) | payer OTHER, SELFPAY | END | disposition home or self-care (01) | LOC: LAB 09:27 | PROVIDERS: PCP Family Medicine; Referring Provider Internal Medicine Nephrology; Visit Provider Internal Medicine Nephrology | DX: N20.0 Calculus of kidney (principal) ==

== ENCOUNTER → 2025-01-12 | Outpatient (CLI) | payer OTHER, SELFPAY | END | disposition home or self-care (01) | PROVIDERS: PCP Family Medicine; Referring Provider Internal Medicine Nephrology; Visit Provider Internal Medicine Nephrology | DX: N20.0 Calculus of kidney (principal) ==

== ENCOUNTER → 2025-01-27 | Outpatient (CLI) | payer OTHER, SELFPAY ==
[2025-01-27 16:17] LABS: Basophil# 0.06 X10^3/uL; Basophil% 0.7 % (0-1); Eosinophil# 0.11 X10^3/uL; Eosinophils% 1.4 % (0-5); Hemoglobin 13.7 g/dL (12.0-15.0); Lymphocyte % 28.4 % (19-41); Mean Corp Hgb Conc 32.6 g/dL (32-36); Mean Corpuscular Hgb 29.7 pg (27.0-32.0); Mean Corpuscular Volume 91.1 fL (81-99); Mean Platelet Vol. 9.9 fl (6.2-12.0); Monocyte# 0.61 X10^3/uL; Monocyte% 7.5 % (0-10); NRBC Flagged by Analyzer 0 % (0-5); Neutrophil # 4.98 X10^3/uL (2.7-7.7); Neutrophil % 61.6 % (47-70); Platelet Count 278 K/mm3 (150-450); RBC Distribution Width CV 12.2 % (11.6-14.6); RBC Distribution Width SD 40.4 fl (35.1-43.9); Red Blood Count 4.61 M/mm3 (4.2-5.4); White Blood Count 8.1 K/mm3 (4.4-11.0)
[2025-01-27 19:39] LABS: Hepatitis C Antibody Nonreactive (Nonreactive)
[2025-01-27 19:49] LABS: Thyroid Stim Hormone (TSH) 0.651 uIU/mL (0.300-4.200); Vitamin D,25 Hydroxy 39.7 ng/mL (30-100)
[2025-01-27 19:52] LABS: ALB/GLOB Ratio 1.6 RATIO (0.9-2.4); AST(SGOT) 23 U/L (<=31); Alanine Aminotransfer ALT/SGPT 16 U/L (<=34); Albumin, Serum 4.6 g/dL (3.4-4.8); Alkaline Phosphatase 68 U/L (35-104); Anion Gap 11 (5-15); BUN 28 mg/dL (4-19); Carbon Dioxide 28.1 mmol/L (21.0-32.0); Chloride 100 mmol/L (98-108); Creatinine, Serum 1.33 mg/dL (0.70-1.20); EST Glomerular Filtration Rate 46 (>60); Globulin 2.9 g/dL (2.2-4.2); Glucose 117 mg/dL (70-99); Potassium 4.5 mmol/L (3.3-5.1); Protein, Total 7.4 g/dL (5.9-8.4); Sodium Level 139 mmol/L (133-145); Total Bilirubin 0.16 mg/dL (0.00-1.30)
== END | disposition home or self-care (01) ==
LOC: POLAB3 16:03
PROVIDERS: PCP Family Medicine Geriatric Medicine; Visit Provider Family Medicine Geriatric Medicine
DX: I10 Essential (primary) hypertension (principal); E55.9 Vitamin D deficiency, unspecified; Z13.89 Encounter for screening for other disorder
CPT/HCPCS: 36415; 80053; 82306; 84443; 85025; 86803

== ENCOUNTER → 2025-02-12 | Outpatient (CLI) | payer OTHER, SELFPAY ==
--- NOTE | 2025-02-12 09:21 | CT_ITS ---
PROCEDURE: LOW DOSE CT LUNG SCREENING 02/12/2025 REASON FOR EXAM: HX OF TOBACCO USE, 20 pack years. TECHNIQUE: Low Dose CT Lung screening without contrast. Coronal and Sagittal reconstruction series were provided. One or more dose reduction techniques were used (e.g., Automated exposure control, adjustment of the mA and/or kV according to patient size, use of iterative reconstruction technique). REFERENCE LINK: [employer] Lung-RADS RADIATION DOSE SUMMARY: CTDlvol: 2.01 mGy DLP: 65.70 mGycm COMPARISON: Prior abdomen pelvis CT exams in 2024, 2023, 2022, FINDINGS: PULMONARY NODULES: (Only nodules >3mm are reported) Nodules described below are on the 1.2 mm slice thickness series, unless otherwise specified. Pulmonary Nodules: 8 mm pleural-based nodule in the right upper lobe, 47 of 236 5 mm nodule posterior lower lobe, slice 90 of 236. 5.7 mm nodule, slice 93 of 236 7.6 mm nodule posterior medial right lower lobe, slice 95 of 236 7.5 mm nodule posterior right lower lobe, slice 95 of 236 (same slice as above). No significant left lung nodules. Lymph Nodes:Few small AP window lymph nodes are seen. Sensitivity for hilar lymph nodes is diminished due to lack of IV contrast Heart and Vasculature:Heart size is normal.. Vessels are unremarkable. Coronary Artery Calcifications: Calcifications are seen in the left main coronary artery. Lungs and Airways: Severe centrilobular emphysema pattern throughout both lobes Pleura:Unremarkable. No pleural effusions. Upper Abdomen:Limited images straight no acute pathology Bones:Unremarkable. No aggressive process. CT/Low Dose CT Lung Screening IMPRESSION: Several small right lower lobe pulmonary nodules. Coronary artery calcification (CAC) is [id number] left main coronary adelaide ry. Lung-RADS Category: 3 consider six-month follow-up low-dose CT lung Other Significant Findings: None. Reading Location: [facility]
== END | disposition home or self-care (01) ==
LOC: CT 09:18
PROVIDERS: PCP Family Medicine Geriatric Medicine; Referring Provider Family Medicine Geriatric Medicine; Visit Provider Family Medicine Geriatric Medicine
DX: Z87.891 Personal history of nicotine dependence (principal)
CPT/HCPCS: 71271

== ENCOUNTER → 2025-03-25 | Outpatient (CLI) | payer OTHER, SELFPAY ==
[2025-03-25 07:33] LABS: Albumin, Serum 4.3 g/dL (3.4-4.8); Anion Gap 11 (5-15); BUN 29 mg/dL (4-19); Calcium,Total 9.9 mg/dL (7.6-11.0); Carbon Dioxide 24.8 mmol/L (21.0-32.0); Chloride 104 mmol/L (98-108); Creatinine, Serum 1.17 mg/dL (0.70-1.20); EST Glomerular Filtration Rate 53 (>60); Glucose 98 mg/dL (70-99); Sodium Level 140 mmol/L (133-145)
[2025-03-25 09:11] LABS: Cholesterol 168 mg/dL (<=200); High Density Lipoprotein 62 mg/dL; Low Density Lipoprotein Calc. 93 mg/dL; Triglycerides 68 mg/dL; Very Low Density Lipoprotein 14 mg/dL (5-40); cholesterol:hdl ratio screen 2.73
== END | disposition home or self-care (01) ==
LOC: LAB 06:09
PROVIDERS: Internal Medicine Cardiovascular Disease; PCP Family Medicine Geriatric Medicine; Referring Provider Internal Medicine Nephrology; Visit Provider Internal Medicine Nephrology
DX: N18.31 Chronic kidney disease, stage 3a (principal)
CPT/HCPCS: 36415; 80061; 80069

== ENCOUNTER → 2025-04-01 | Outpatient (CLI) | payer OTHER, SELFPAY ==
--- NOTE | 2025-04-01 06:23 | ECHOD_ITS ---
Reason For Study Reason For Study: Chest Pain Procedure This was a 2D Doppler, Color Flow transthoracic echocardiogram. Exam performed in department. Left Ventricle Normal size and thickness. The LV systolic function is normal. EF is 65 %. No evidence for diastolic dysfunction. Right Ventricle Normal right ventricle. Atria The left and right atria are normal. Mitral Valve Trivial mitral valve insufficiency. Tricuspid Valve Normal tricuspid valve. Aortic Valve Trisinus/trileaflet aortic valve. Mild (1+) aortic valve insufficiency. Pulmonic Valve The pulmonic valve is not well visualized. Mild (1+) pulmonic valve insufficiency. Great Vessels Normal sized aortic root. Pericardium/Pleural No pericardial effusion. MMode/2D Measurements & Calculations LVIDd: 3.7 cm IVSd: 0.86 cm LAV(MOD- bp): 16.6 ml LVIDs: 2.3 cm LVPWd: 0.73 cm LAV(MOD- bp) Indexed: 10.8 ml/m2 RVDd: 3.1 cm FS: 38.2 % LAV(MOD- sp2): 20.7 ml LAV(MOD- sp4): 13.4 ml SV(MOD-sp4): 40.1 ml SV(sp4- el): 42.7 ml LVAd ap4: 25.0 cm2 LVLd ap4: 7.8 cm SI(MOD-sp4): 26.0 ml/m2 EDV(MOD-sp4): 65.0 ml EDV(sp4-el): 68.3 ml LVAs ap4: 14.4 cm2 LVLs ap4: 6.8 cm ESV(MOD-sp4): 25.0 ml ESV(sp4-el): 25.6 ml EF(MOD-sp4): 61.6 % EF(sp4-el): 62.6 % LA A4 area: 7.8 cm2 LA dimension(2D): 2.6 cm RA A4 area: 8.9 cm2 TAPSE: 1.8 cm Time Measurements MV dec time: 0.25 sec Doppler Measurements & Calculations MV E max giovanny: 60.7 cm/sec Lat Peak E' Giovanny: 11.4 cm/sec Med Peak E' Giovanny: 10.9 cm/sec MV A max giovanny: 60.8 cm/sec E/E' lat: 5.3 E/E' med: 5.6 MV E/A: 1.00 MV V2 max: 86.3 cm/sec MV P1/2t max giovanny: 88.0 cm/sec Ao V2 max: 127.9 cm/sec MV max P.0 mmHg MV P1/2t: 110.3 msec Ao max P.5 mmHg MV V2 mean: 48.4 cm/sec MV mean P.1 mmHg MV dec slope: 233.7 cm/sec2 MV V2 VTI: 32.9 cm MVA(P1/2t): 2.0 cm2 AI max giovanny: 415.9 cm/sec LV V1 max: 84.5 cm/sec AI max P.2 mmHg LV V1 max P.9 mmHg AI dec slope: 161.9 cm/sec2 AI P1/2t: 752.1 msec ECHO/Echo Complete Interpretation Summary The LV systolic function is normal. EF is 65 %. No evidence for diastolic dysfunction. Mild (1+) aortic valve insufficiency. Mild (1+) pulmonic valve insufficiency. Ordering Physician: Anna Ragsdale Referring Physician: Anna Ragsdale Performed By: Waylon Michel [facility]
--- NOTE | 2025-04-01 12:37 | STRESSREP_ITS ---
Stress Test Report Date: 04/01/2025 Procedure: Exercise tolerance test/imaging study Indications: Chest pain Consent: Per the patient Procedure: The patient exercised on a Macario protocol for 7 minutes and 59 seconds achieving a peak heart rate of 141 bpm (88% predicted maximal heart rate) with a peak blood pressure 166/78 mmHg and a peak MET capacity of 10.1 METs. The baseline ECG demonstrated sinus rhythm. The peak exercise ECG no ischemic changes. Rare PVCs noted with exercise. The functional capacity was considered very good for age. There was complaint of mild chest discomfort with exercise. The examination was discontinued secondary to target heart rate being achieved. The patient was injected with 11.7 mCi of technetium 99m Cardiolite and subsequently rest SPECT Cardiolite nuclear imaging was obtained in the horizontal long, vertical long, and short axis views. Post-exercise, the patient was injected with 33.3 mCi of technetium 99m Cardiolite and subsequently stress SPECT Cardiolite nuclear imaging was obtained in the horizontal long, vertical long, and short axis views. A gated Cardiolite study at peak stress was obtained. Rest and stress SPECT Cardiolite nuclear imaging status post realignment, normalization, and attenuation correction, demonstrates the appearance of relative uniform tracer uptake and myocardial perfusion appearing within normal limits. There is end systolic thickening and brightening. The gated Cardiolite study demonstrates myocardial thickening and inward wall motion. The reported LVEF is 86%. Impression: 1. Technically adequate (percent predicted maximal heart rate greater than 85%) exercise tolerance test 2. Peak exercise ECG with no ischemic changes. Mild chest pain reported with exercise. 3. Rare PVCs noted with exercise 4. Rest and stress SPECT Cardiolite nuclear imaging demonstrate relative uniform tracer uptake and myocardial perfusion appearing within normal limits. 5. The gated Cardiolite study reports an LVEF of 86%. This note was generated with [employer] software. It may contain incorrect words, spelling, and punctuation that were not noted in checking the note before signing.
== END | disposition home or self-care (01) ==
LOC: CVS 06:22
PROVIDERS: PCP Family Medicine Geriatric Medicine; Referring Provider Internal Medicine Cardiovascular Disease; Visit Provider Internal Medicine Cardiovascular Disease
DX: R07.9 Chest pain, unspecified (principal)
CPT/HCPCS: 78452; 93017; 93306; A9500; A4216

== ENCOUNTER → 2025-06-21 | Outpatient (CLI) | payer OTHER, SELFPAY ==
--- NOTE | 2025-06-21 16:48 | CT_ITS ---
EXAM: CT Abdomen and Pelvis With Intravenous Contrast CLINICAL INDICATION: ABDOMINAL PAIN AND DIARRHEA TECHNIQUE: Axial computed tomography images of the abdomen and pelvis with intravenous contrast. This CT exam was performed using one or more of the following dose reduction techniques: automated exposure control, adjustment of the mA and/or kV according to patient size, and/or use of iterative reconstruction technique. COMPARISON: No relevant prior studies available. FINDINGS: LUNG BASES: Unremarkable. No mass. No consolidation. ABDOMEN: LIVER: Hepatomegaly with fatty infiltration. GALLBLADDER AND BILE DUCTS: Unremarkable. No calcified stones. No ductal dilation. PANCREAS: Unremarkable. No mass. No ductal dilation. SPLEEN: Unremarkable. No splenomegaly. ADRENALS: Unremarkable. No mass. KIDNEYS AND URETERS: Unremarkable. No stones within either kidney. No hydronephrosis. STOMACH AND BOWEL: Fecal retention in the colon consistent with constipation. No obstruction. No mucosal thickening. PELVIS: APPENDIX: No findings to suggest acute appendicitis. BLADDER: Unremarkable. No mass. REPRODUCTIVE: Unremarkable as visualized. ABDOMEN and PELVIS: INTRAPERITONEAL SPACE: Unremarkable. No free air. No significant fluid collection. BONES/JOINTS: No acute fracture. No dislocation. SOFT TISSUES: Umbilical hernia containing fat. VASCULATURE: Unremarkable. No abdominal aortic aneurysm. LYMPH NODES: Unremarkable. No enlarged lymph nodes. CT/Abdomen/Pelvis WITH Contrast IMPRESSION: 1. Hepatomegaly with fatty infiltration. 2. Fecal retention in the colon consistent with constipation. 3. Umbilical hernia containing fat. 4. No obstructive uropathy. Reading Location: [id number]
[2025-06-21 17:09] LABS: Hematocrit 42.6 % (37-47); Hemoglobin 13.7 g/dL (12.0-15.0); Immature Granulocytes Count 0.020 X10^3/uL (0.0-0.0); Mean Corp Hgb Conc 32.2 g/dL (32-36); Mean Corpuscular Volume 90.6 fL (81-99); Mean Platelet Vol. 10.1 fl (6.2-12.0); NRBC Flagged by Analyzer 0 % (0-5); Platelet Count 291 K/mm3 (150-450); RBC Distribution Width CV 12.7 % (11.6-14.6); RBC Distribution Width SD 42.4 fl (35.1-43.9); Red Blood Count 4.70 M/mm3 (4.2-5.4); White Blood Count 8.6 K/mm3 (4.4-11.0)
[2025-06-21 17:46] LABS: AST(SGOT) 24 U/L (<=31); Alanine Aminotransfer ALT/SGPT 13 U/L (<=34); Albumin, Serum 4.6 g/dL (3.4-4.8); Alkaline Phosphatase 64 U/L (35-104); Anion Gap 12 (5-15); BUN 28 mg/dL (4-19); BUN/Creat Ratio 26.7 RATIO (10-20); Calcium,Total 9.9 mg/dL (7.6-11.0); Carbon Dioxide 24.9 mmol/L (21.0-32.0); Chloride 106 mmol/L (98-108); Globulin 2.6 g/dL (2.2-4.2); Glucose 103 mg/dL (70-99); Potassium 4.0 mmol/L (3.3-5.1)
[2025-06-21 17:50] LABS: Amylase 57 U/L (28-100); Lipase 41 U/L (13-75)
== END | disposition home or self-care (01) ==
LOC: CT 16:44
PROVIDERS: PCP Family Medicine Geriatric Medicine; Referring Provider Family Medicine Geriatric Medicine; Visit Provider Family Medicine Geriatric Medicine
DX: R19.7 Diarrhea, unspecified (principal); R10.9 Unspecified abdominal pain; K85.90 Acute pancreatitis without necrosis or infection, unspecified
CPT/HCPCS: 36415; 74177; 80053; 82150; 83690; 85025; Q9967

== ENCOUNTER → 2025-06-22 | Outpatient (CLI) | payer OTHER, SELFPAY ==
--- OUTSIDE RECORDS SUMMARY | 2025-06-22 06:35 | XMS RPT_ITS | CCD ---
Author Organization [facility] [place] [facility] Care Team Providers Care [place] Worker Name Role Phone lAejo Fletcher MD Primary Care Provider Alejo Fletcher MD Primary Care Provider Jia Alvarado APRN.CNP Unavailable Xochilt Rodriguez PA-C Unavailable ALEJO FLETCHER Primary Care Unavailable TANA PETERSON Attending Unavailable ALEJO FLETCHER Primary Care Unavailable ALEJO FLETCHER Attending Unavailable ALEJO FLETCHER Referring Unavailable ALEJO FLETCHER Primary Care Unavailable ALEJO FLETCHER Primary Care Unavailable ALEJO FLETCHER Referring Unavailable TANA PETERSON Attending Unavailable ALEJO FLETCHER Primary Care Unavailable ALEJO FLETCHER Primary Care Unavailable MARCIAL DAVIS Attending Unavailable TANA PETERSON Referring Unavailable ALEJO FLETCHER Primary Care Unavailable MARCIAL DAVIS Referring Unavailable TANA PETERSON Attending Unavailable ALEJO FLETCHER Primary Care Unavailable TANYA BRAR Attending Unavailable Dr. Alejo Fletcher MD Primary Care Provider Dr. Pooja Ac DO Attending Provider Dr. Pooja Ac DO Emergency Provider Dr. Arlette Storey DO Attending Provider Dr. Arlette Storey DO Referring Provider Dr. Alejo Fletcher MD Referring Provider Dr. Avelina Rios MD Attending Provider Dr. Alejo Fletcher MD Primary Care Provider Dr. Pooja Ac DO Attending Provider Dr. Pooja Ac DO Emergency Provider Raleigh FRAZIER, Dr. Cohng Attending Provider Raleigh FRAZIER, Dr. Chong Referring Provider [phone] Altaf PEREIRA, Dr. Dhillon Referring Provider Blanca PEREIRA, Dr. Quan Attending Provider Deondre PEREIRA, Dr. Chavo Castellanos Primary Care Provider Deondre PEREIRA, Dr. Chavo Castellanos Attending Provider Deondre PEREIRA, Dr. Chavo Castellanos Referring Provider Altaf PEREIRA, Dr. Dhillon Primary Care Provider Jn PEREIRA, Dr. Castillo Attending Provider Jn PEREIRA, Dr. Castillo Other Provider Jn PEREIRA, Dr. Castillo Referring Provider Deondre, Chavo Chi Primary Care Unavailable Deondre, Chavo Chi Attending Unavailable Deondre, Chavo Chi Primary Care Unavailable Deondre, Chavo Chi Attending Unavailable Deondre, Chavo Chi Referring Unavailable Deondre, Chavo Chi Primary Care Unavailable Jn, Anna Attending Unavailable Jn, Anna Referring Unavailable Raleigh, Arlette Attending Unavailable Altaf, Alejo Primary Care Unavailable Altaf, Alejo Referring Unavailable Avelina Rios Attending Unavailable Altaf, Alejo Primary Care Unavailable Deondre, Chavo Chi Primary Care Unavailable Jn, Anna Attending Unavailable Deondre, Chavo Chi Referring Unavailable Deondre, Chavo Chi Primary Care Unavailable Jn, Anna Attending Unavailable Altaf, Alejo Primary Care Unavailable Raleigh, Arlette Attending Unavailable Raleigh, Arlette Referring Unavailable Deondre, Chavo Chi Primary Care Unavailable Jn, Anna Consulting Unavailable Arlette Storey Attending Unavailable Raleigh, Arlette Referring Unavailable Raleigh, Arlette Attending Unavailable Altaf, Alejo Primary Care Unavailable Raleigh, Arlette Referring Unavailable Altaf, Alejo Primary Care Unavailable Pooja Ac Attending Unavailable Altaf, Alejo Primary Care Unavailable Raleigh, Arlette Referring Unavailable Raleigh, Arlette Attending Unavailable Altaf, Alejo Primary Care Unavailable Raleigh, Arlette Referring Unavailable Raleigh, Arlette Attending Unavailable Marcial Davis Attending Unavailable Marcial Davis Referring Unavailable Alejo Fletcher Primary Care Unavailable Allergies Allergy Classification Reported Allergen(s) Allergy Type Date of Onset Reaction(s) Facility (20 sources) Nitrofurantoin; Translations: [NITROFURANTOIN] Drug Allergy 10-16-20 16 Other: See Comments [facility] Work Phone: (20 sources) Yeast, Dried; Translations: [YEAST, DRIED] Propensity to adverse reactions to drug 11-27-19 06 Unknown [facility] Work Phone: (16 sources) Candi albicans Drug Allergy 11-08-20 21 Other [facility] [place] (1 source) Candi albicans allergenic extract Drug Allergy 03-09-20 [facility] [place] Repository (1 source) Nitrofurantoin Drug Allergy 03-09-20 [facility] [place] Repository Medications Current Medications Medication Drug Class(es) Dates Sig (Normalized) Sig (Original) amoxicillin 500 mg oral capsule (2 sources) Penicillin-class Antibacterial Start: 07-14-2024 End: 07-28-2024 take 2 capsules by mouth twice daily amoxicillin (AMOXIL) 500 mg capsule Take 2 capsules by mouth two times a day for 14 days. 56 capsule 07/14/2024 07/28/2024 Active aspirin 81 mg delayed release oral tablet (2 sources) Platelet Aggregation Inhibitor, Nonsteroidal Anti-inflammatory Drug Start: 03-09-2025 take 1 tablet by mouth once daily Aspirin (Adult Aspirin Regimen) 81 mg tablet,delayed release (DR/EC) Active 81 mg PO daily March 09, 2025 12:00am 24 hr budesonide 9 mg extended release oral capsule (7 sources) Corticosteroid Start: 12-23-2024 End: 02-21-2025 take 1 capsule by mouth once daily in the morning budesonide (ORTIKOS) 9 mg capsule, extended release Take 1 capsule by mouth every morning. 30 capsule 1 12/23/2024 02/21/2025 Active 24 hr clarithromycin 500 mg extended release oral tablet (2 sources) Macrolide Antimicrobial Start: 07-14-2024 End: 07-28-2024 take 1 tablet by mouth twice daily clarithromycin XL (BIAXIN XL) 500 mg 24 hr tablet Take 1 tablet by mouth two times a day for 14 days. 28 tablet 07/14/2024 07/28/2024 Active clobetasol propionate 0.5 mg/ml topical cream (20 sources) Corticosteroid Start: 02-01-2023 Clobetasol 0.05 % Cream Active 1 NMA TOPICAL NEEDED as needed for Rash February 01, 2023 12:00am Start: 02-01-2023 Clobetasol Act christa 1 APPLIC TOPICAL NEEDED January 31, 2023 11:00pm Start: 06-13-2020 End: 06-28-2024 clobetasol (TEMOVATE) 0.05 % ointment Indications: lichen sclerosus apply a pea-sized amount to vulva qhs. May use 1-2 times daily for 7-10 days prn flares. 60 g 3 06/29/2024 Active Comment on above: Apply to vulva night ly for 6 weeks then decrease to twice/weekly. May increase to daily or 2x/wk if experiencing a flare apply a pea-sized am ount to vulva qhs. May use 1-2 times daily for 7-10 days prn flares. Cyclosporine 0.05 % dropperette (2 sources) Start: 03-01-2025 Cyclosporine 0.05 % dropperette Active 1 NMA OPHTHALMIC THREE TIMES A DAY March 01, 2025 12:00am estradiol 0.1 mg/ml vaginal cream (20 sources) Estrogen Start: 02-01-2023 Estradiol 0.01 % (0.1 mg/gram) cream Active 1 NMA VAGINAL .TWICE WEEKLY February 01, 2023 12:00am Start: 02-01-2023 Estradiol Acti ve 1 APPLIC VAGINAL .TWICE WEEKLY January 31, 2023 11:00pm Start: 01-23-2022 End: 06-28-2024 estradiol (ESTRACE) 0.01 % ( 0.1 mg/gram) vaginal cream Use 1 g vaginally two times a week. 42.5 g 3 06/29/2024 Active Start: 11-09-2016 take 0.5 mg by mouth once mary y Estradiol Active 0.5 MG PO DAILY November 09, 2016 1:00am Comment on above: Use 1 g vaginally tw o times a week. hydroCHLOROthiazide 12.5 mg oral capsule (2 sources) Thiazide Diuretic Start: 2024 take 1 capsule by mouth once daily Hydrochlorothiazide 12.5 mg capsule Active 12.5 mg PO DAILY March 01, 2025 12:00am MULTIVITAMIN ORAL (20 sources) MULTIVITAMIN ORA L Take by mouth. Active MULTIVITAMIN ORA L Take by mouth. 0 Active Comment on above: Take by mouth. Multivitamin preparation (4 sources) Start: 02-01-2023 take 1 tablet by mouth once daily Multivitamin Active 1 TABLET PO DAILY January 31, 2023 11:00pm Start: 02-01-2023 take 1 tablet by campbell th once daily Multivitamin Active 1 TABLET PO DAILY February 01, 2023 12:00am ondansetron 4 mg disintegrating oral tablet (4 sources) Serotonin-3 Receptor Antagonist Start: 11-08-2021 take 8 mg by mouth every eight hours as needed Ondansetron Active 8 MG PO EVERY 8 HOURS NEEDED November 08, 2021 1:00am perflutren lipid microspheres 1.3 mL in NaCl (PF) 0.9% 10 mL injection (DEFINITY) (6 sources) Start: 03-21-2021 End: 06-20-2022 perflutren lipid microspheres 1.3 mL in NaCl (PF) 0.9% 10 mL injection (DEFINITY) polyethylene glycol 3350 148573 mg / potassium chloride 2970 mg / sodium bicarbonate 6740 mg / sodium chloride 5860 mg / sodium sulfate 24414 mg powder for oral solution (1 source) Osmotic Laxative Start: 07-24-2024 End: 07-24-2024 peg 3350-Electrolytes (GOLYTELY) 236-22.74-6.74 -5.86 gram suspension Indications: Diarrhea, unspecified type Take 4,000 mL by mouth one time only for 1 dose. Refer to printed prep instructions from your provider. 4000 mL 07/24/2024 07/24/2024 Active potassium citrate 10 meq extended release oral tablet (20 sources) Start: 02-01-2023 take 1 tablet by mouth once daily Potassium Citrate 10 mEq (1,080 mg) tablet extended release Active 10 meq PO DAILY February 01, 2023 12:00am Start: 02-27-2019 End: 07-01-2024 take 10 mEq by mouth once daily potassium citrate ER (UROCIT-K) 10 mEq (1,080 mg) TbER Take 1,080 mg by mouth once daily. 6 02/27/2019 07/01/2024 Discontinued (Discontinued by Patient) Comment on above: Take 1,080 mg by campbell th once daily. 125 ml sodium chloride 9 mg/ml prefilled syringe (6 sources) Start: 1 End: 2 sodium chloride 0.9 % (flush) 10 mL (BD POSIFLUSH) varenicline 0.5 mg oral tablet (6 sources) Partial Cholinergic Nicotinic Agonist Start: 2 End: 3 take 1 tablet by mouth once daily varenicline (CHANTIX) 0.5 mg (11)- 1 mg (42) tablet Take 0.5 mg by mouth once daily on Days 1 through 3, THEN 0.5 mg twice daily on Days 4 through 7, THEN 1 mg twice daily on Day 8 and thereafter 53 tablet 0 08/10/2022 02/06/2023 Discontinued Start: 08-10-2022 End: 02-06-2023 take 1 tablet by mouth twice daily varenicline (CHANTIX) 1 mg tablet Take 1 tablet by mouth twice daily. 56 tablet 4 08/10/2022 02/06/2023 Discontinued (Other) Comment on above: Take 0.5 mg by mouth once daily on Days 1 through 3, THEN 0.5 mg twice daily on Days 4 through 7, THEN 1 mg twice daily on Day 8 and thereafter Take 1 tablet by campbell th twice daily. Completed/Discontinued Medications Medication Drug Class(es) Dates Sig (Normalized) Sig (Original) acetaminophen 325 mg / oxyCODONE hydrochloride 5 mg oral tablet (20 sources) Opioid Agonist Start: 02-07-2023 End: 03-01-2025 Oxycodone-Acetamino phen (Percocet) 5-325 mg tablet Discontinued 1 {tbl} PO Q8H as needed for pain 10 March 28, 2023 March 01, 2025 3:37pm Start: 12-25-2022 take 1 tablet by campbell th every six hours Oxycodone-Acetaminophen (Percocet) 5-325 mg tablet Active 1 TABLET PO EVERY 6 HOURS 12 December 25, 2022 Start: 11-08-2021 take 1 tablet by campbell th every six hours as needed Oxycodone-Acetaminophen Active 1 TABLET PO EVERY 6 HOURS NEEDED 30 03November 08, 2021 calcium chloride 0.0014 meq/ml / potassium chloride 0.004 meq/ml / sodium chloride 0.103 meq/ml / sodium lactate 0.028 meq/ml injectable solution (1 source) Start: 07-30-2024 End: 07-30-2024 take 30 mL intravenously every hour 30 mL/hr, INTRAVENOUS, CONTINUOUS, Starting on Magali 07/30/24 at 0800, Until Magali 07/30/24 at 0842, Preprocedure cephalexin 500 mg oral capsule (12 sources) Cephalosporin Antibacterial Start: 03-28-2023 End: 03-01-2025 take 1 capsule by mouth every twelve hours Cephalexin 500 mg capsule Discontinued 500 mg PO EVERY 12 HOURS 6 March 28, 2023 12:00am March 01, 2025 3:37pm Start: 02-07-2023 take 500 mg by mouth every twelve hours Cephalexin Active 500 MG PO EVERY 12 HOURS 6 February 07, 2023 12:00am cyanocobalamin, vitamin B-12 , (VITAMIN B-12 ORAL) (10 sources) End: 01-15-2024 cyanocobalamin, vitamin B-12 , (VITAMIN B-12 ORAL) Take by mouth. 0 01/15/2024 Discontinued cyanocobalamin, vitamin B-12, (VITAMIN B-12 ORAL) Take by mouth. 0 Active Comment on above: Take by mouth. diphenhydrAMINE (1 source) Histamine-1 Receptor Antagonist Start: End: 12.5-50 mg, INTRAVENOUS, DIRECTED, Starting on Magali 07/30/24 at 0830, Until Magali 07/30/24 at 1229, DOSING DIRECTED BY PHYSICIAN FOR PROCEDURAL SEDATION ONLY, Intraprocedure 1 ml fentaNYL 0.05 mg/ml injection (1 source) Opioid Agonist Start: End: 25-100 mcg, INTRAVENOUS, DIRECTED, Starting on Magali 07/30/24 at 0830, Until Magali 07/30/24 at 1229, DOSING DIRECTED BY PHYSICIAN FOR PROCEDURAL SEDATION ONLY, Intraprocedure hydrOXYzine hydrochloride 25 mg oral tablet (9 sources) Antihistamine Start: End: take 1 tablet by mouth every eight hours as needed hydrOXYzine HCl (ATARAX) 25 mg tablet Take 1 tablet by mouth three times daily as needed for itching/rash. 30 tablet 1 02/06/2023 01/15/2024 Discontinued Comment on above: Take 1 tablet by [facility] three times daily as needed for itching/rash. lactobacillus acidophilus [id number] unt oral capsule (20 sources) Start: End: take 10 capsules by mouth once daily Lactobacillus Acidophilus (Probiotic) 10 billion cell Capsule Discontinued [id number] NMA PO DAILY February 01, 2023 12:00am March 09, 2025 11:25am End: 07-01-2024 Lactobacillus acidophilus (P ROBIOTIC ORAL) Take by mouth. 07/01/2024 Discontinued (Discontinued by Patient) Lactobacillus ac idophilus (PROBIOTIC ORAL) Take by mouth. Active Lactobacillus ac idophilus (PROBIOTIC ORAL) Take by mouth. 0 Active Comment on above: Take by mouth. lansoprazole 30 mg delayed release oral capsule (7 sources) Proton Pump Inhibitor Start: End: take 1 capsule by mouth twice daily before mealtime lansoprazole (PREVACID) 30 mg capsule Take 1 capsule by mouth two times a day for 14 days. 1/2 hr before meal. 28 capsule 07/14/2024 11/25/2024 Discontinued (Other) 5 ml midazolam 1 mg/ml injection (1 source) Benzodiazepine Start: End: 1-5 mg, INTRAVENOUS, DIRECTED, Starting on Magali 07/30/24 at 0830, Until Magali 07/30/24 at 1229, DOSING DIRECTED BY PHYSICIAN FOR PROCEDURAL SEDATION ONLY, Intraprocedure Multivitamin Tablet (8 sources) Start: End: Multivitamin Tablet Discontinued 1 {tbl} PO DAILY February 01, 2023 12:00am March 09, 2025 11:25am Start: 02-01-2023 Multivitamin T ablet Active 1 {tbl} PO DAILY February 01, 2023 12:00am Start: 02-01-2023 Multivitamin T ablet Active 1 {tbl} PO DAILY January 31, 2023 11:00pm phenazopyridine hydrochloride 200 mg oral tablet (11 sources) Start: 03-28-2023 End: 03-09-2025 take 1 tablet by mouth three times daily as needed for muscle spasms Phenazopyridine (Pyridium) 200 mg tablet Discontinued 200 mg PO 3 TIMES DAILY NEEDED as needed for Bladder Spasms 30 March 28, 2023 12:00am March 09, 2025 11:26am 72 hr scopolamine 0.0139 mg/hr transdermal system (3 sources) Anticholinergic Start: 10-15-2024 End: 12-23-2024 scopolamine (TRANSDERM-SCOP) patch 1.5 mg/72 hr (delivers 1 mg over 3 days) Apply 1 Patch as directed every [address] first patch 12 hrs before departure. 4 Patch 10/15/2024 12/23/2024 Discontinued (Discontinued by Patient) tamsulosin hydrochloride 0.4 mg oral capsule (20 sources) alpha-Adrenergic Shady Start: 11-08-2021 End: 03-09-2025 take 1 capsule by mouth once daily Tamsulosin (Flomax) 0.4 mg capsule Discontinued 0.4 mg PO DAILY November 07, 2024 1:00am March 09, 2025 11:26am Vibegron (12 sources) Start: 02-01-2023 End: 03-09-2025 take 1 tablet by mouth once daily Vibegron (Gemtesa) 75 mg Tablet Discontinued 75 mg PO DAILY February 01, 2023 12:00am March 09, 2025 11:26am Start: 02-01-2023 take 1 tablet by campbell th once daily Vibegron (Gemtesa) 75 mg Tablet Active 75 mg PO DAILY February 01, 2023 12:00am Start: 02-01-2023 take 1 tablet by campbell th once daily Vibegron (Gemtesa) 75 mg Tablet Active 75 mg PO DAILY January 31, 2023 11:00pm Start: 02-01-2023 take 1 tablet by campbell th once daily Vibegron (Gemtesa) 75 mg Tablet Active 75 MG PO DAILY January 31, 2023 11:00pm Start: 02-01-2023 take 1 tablet by campbell th once daily Vibegron (Gemtesa) 75 mg Tablet Active 75 MG PO DAILY February 01, 2023 12:00am vibegron (GEMTESA) 75 mg tablet (10 sources) End: 01-15-2024 take 1 tablet by mouth once daily vibegron (GEMTESA) 75 mg tablet Take 75 mg by mouth once daily. 0 01/15/2024 Discontinued take 1 tablet by mouth once mary y vibegron (GEMTESA) 75 mg tablet Take 75 mg by mouth once daily. 0 Active Comment on above: Take 75 mg by mouth once daily. vitamin b12 0.05 mg oral tablet (12 sources) Vitamin B12 Start: 02-01-2023 End: 03-09-2025 take 1 tablet by mouth once daily Cyanocobalamin (Vitamin B-12) (Vitamin B-12) 50 mcg Tablet Discontinued 50 ug PO DAILY February 01, 2023 12:00am March 09, 2025 11:25am Problems Active Problems Problem Classification Problem Date Documented Da te Episodic/Chronic Calculus of urinary tract (20 sources) Kidney stone; Translations: [Calculus of kidney] Onset: 11-27-2005 01-18-2016 Episodic Chronic kidney disease (20 sources) Chronic kidney disease stage 3; Translations: [Stage 3 chronic kidney disease, unspecified whether stage 3a or 3b CKD (HCC)] Onset: 10-29-2017 Chronic Chronic kidney disease (1 source) Chronic kidney disease; Translations: [Chronic kidney disease, stage 3a] Onset: 03-31-2025 Chronic obstructive pulmonary disease and bronchiectasis (20 sources) Pulmonary emphysema; Translations: [Emphysema, unspecified] Onset: 04-01-2010 Chronic Coronary atherosclerosis and other heart disease (5 sources) Coronary arteriosclerosis; Translations: [Atherosclerotic heart disease of [place] coronary artery without angina pectoris] Onset: 03-09-2025 03-09-2025 Chronic Disorders of lipid metabolism (3 sources) Hyperlipidemia; Translations: [Hyperlipidemia, unspecified] Onset: 03-09-2025 03-01-2025 Chronic Diverticulosis and diverticulitis (20 sources) Diverticula of intestine; Translations: [Diverticulosis of intestine, part unspecified, without perforation or abscess without bleeding] Onset: 06-24-2018 06-24-2018 Chronic Essential hypertension (5 sources) Hypertensive disorder; Translations: [Essential (primary) hypertension] Onset: 03-09-2025 03-09-2025 Chronic Fluid and electrolyte disorders (2 sources) Hypokalemia; Translations: [Hypokalemia] 03-01-2025 Episodic Noninfectious gastroenteritis (2 sources) Collagenous colitis; Translations: [Collagenous colitis] Onset: 08-07-2024 08-06-2024 Chronic Nonspecific chest pain (20 sources) Chest pain; Translations: [Chest pain, unspecified] Onset: 12-29-2005 Resolved: 01-14-2008 01-14-2008 Episodic Nutritional deficiencies (2 sources) Vitamin D deficiency; Translations: [Vitamin D deficiency, unspecified] 03-01-2025 Chronic Other gastrointestinal disorders (2 sources) Irritable bowel syndrome with diarrhea; Translations: [Irritable bowel syndrome with diarrhea] Chronic Other gastrointestinal disorders (20 sources) Irritable bowel syndrome; Translations: [Irritable bowel syndrome without diarrhea] Onset: 08-18-2008 01-18-2016 Chronic Other skin disorders (20 sources) Lichen sclerosus et atrophicus; Translations: [Circumscribed scleroderma] 11-06-2021 Chronic Residual codes; unclassified (2 sources) H/O: Disorder; Translations: [Personal history of other medical treatment] 03-01-2025 Episodic Past or Other Problems Problem Classification Problem Date Documented Da te Episodic/Chronic Abdominal pain (3 sources) Epigastric pain; Translations: [Epigastric pain] Onset: 07-01-2024 07-01-2024 Episodic Cancer of cervix (19 sources) History of malignant neoplasm of cervix; Translations: [Personal history of malignant neoplasm of cervix uteri] Onset: 11-11-1998 Resolved: 05-23-2020 05-23-2020 Episodic Conditions associated with dizziness or vertigo (20 sources) Vertigo; Translations: [Dizziness and giddiness] Onset: 04-01-2010 11-06-2021 Episodic Diabetes mellitus without complication (20 sources) High hemoglobin A1c level; Translations: [Other abnormal glucose] Onset: 02-06-2022 Episodic Hemorrhoids (20 sources) Internal hemorrhoids; Translations: [Other hemorrhoids] Onset: 04-27-2008 01-18-2016 Episodic Menopausal disorders (19 sources) Menopausal symptom; Translations: [Menopausal and female climacteric states] Onset: 01-14-2008 Resolved: 09-20-2015 09-20-2015 Chronic Neoplasms of unspecified nature or uncertain behavior (20 sources) Neoplasm of uncertain behavior of skin of chest; Translations: [Neoplasm of uncertain behavior of skin] Onset: 01-15-2024 01-15-2024 Episodic Other connective tissue disease (19 sources) Pain in limb; Translations: [Pain in unspecified limb] Onset: 11-18-2006 Resolved: 01-14-2008 01-14-2008 Episodic Other ear and sense organ disorders (19 sources) Infective otitis externa; Translations: [Other infective otitis externa, unspecified ear] Onset: 02-02-2006 Resolved: 01-14-2008 01-14-2008 Chronic Other endocrine disorders (20 sources) Hypotestosteronism ; Translations: [Endocrine disorder, unspecified] Onset: 10-19-2013 01-18-2016 Episodic Other gastrointestinal disorders (20 sources) Diarrhea; Translations: [Diarrhea, unspecified] Onset: 03-20-2008 Resolved: 08-18-2008 08-18-2008 Episodic Other gastrointestinal disorders (2 sources) Diarrhea, unspecified; Translations: [Diarrhea, unspecified type] Onset: 07-01-2024 Episodic Other lower respiratory disease (20 sources) Nodule of lung; Translations: [Solitary pulmonary nodule] Onset: 11-08-2021 Episodic Other lower respiratory disease (20 sources) Multiple nodules of lung; Translations: [Other nonspecific abnormal finding of lung field] Onset: 01-28-2024 Episodic Other screening for suspected conditions (not mental disorders or infectious disease) (20 sources) Patient encounter status; Translations: [Encounter for screening for diabetes mellitus] Onset: 10-27-2015 Resolved: 10-27-2015 Episodic Other skin disorders (20 sources) Actinic keratosis; Translations: [Actinic keratosis] Onset: 01-27-2024 01-27-2024 Episodic Residual codes; unclassified (19 sources) Other general symptoms and signs; Translations: [Other nonspecific abnormal findings] Onset: 12-29-2005 Resolved: 01-14-2008 01-14-2008 Episodic Residual codes; unclassified (19 sources) Reduced libido; Translations: [Decreased libido] Onset: 10-19-2013 Resolved: 05-23-2020 05-23-2020 Episodic Screening and history of mental health and substance abuse codes (20 sources) Ex-smoker; Translations: [Personal history of nicotine dependence] Onset: 01-18-2016 Episodic Spondylosis; intervertebral disc disorders; other back problems (20 sources) Neck pain; Translations: [Cervicalgia] Onset: 04-01-2010 10-29-2017 Episodic Substance-related disorders (20 sources) Tobacco user; Translations: [Nicotine dependence, unspecified, uncomplicated] Onset: 12-29-2005 Resolved: 12-21-2016 04-01-2010 Chronic Tuberculosis (20 sources) H/O: tuberculosis; Translations: [Personal history of tuberculosis] Onset: 12-29-2005 11-06-2021 Episodic Results Test Name Value Interpretation Reference Range Facility Cardiovascular stress test r eportOrdered By: Anna Ragsdale on 04-01-2025 Study report [facility] [address] [place] [id number] MR#: [id number] Acct: [id number] Name: JUAN R GARCIA Rep #: [id number] : 1965 59 From: Anna Ragsdale MD Primary Care: Dr. Chavo Mendosa MD Status : REG I Referring Dr: Anna Ragsdale MD Sex: F C Stress Test Report Date: 04/01/2025 Procedure: Exercise tolerance test/imaging study Indications: Chest pain Consent: Per the patient Procedure: The patient exercised on a Macario protocol for 7 minutes and 59 seconds achievinga peak heart rate of 141 bpm (88% predicted maximal heart rate) with a peak blood pressure 166/78 mmHg and a peak MET capacity of 10.1 METs. The baseline ECG demonstrated sinus rhythm. The peak exercise ECG no ischemic changes. Rare PVCs noted with exercise. The functional capacity was considered very good for age. There was complaint of mild chest discomfort with exercise. The examination was discontinued secondary to target heart rate being achieved. The patient was injected with 11.7 mCi of technetium 99m Cardiolite and subsequently rest SPECT Cardiolite nuclear imaging was obtained in the horizontal long, vertical long, and short axis views. Post-exercise, the patientwas injected with 33.3 mCi of technetium 99m Cardiolite and subsequently stress SPECT Cardiolite nuclear imaging was obtained in the horizontal long, vertical long, and short axis views. A gated Cardiolite study at peak stress was obtained. Rest and stress SPECT Cardiolite nuclear imaging status post realignment, normalization, and attenuation correction, demonstrates the appearance of relative uniform tracer uptake and myocardial perfusion appearing within normal limits. There is end systolic thickening and brightening. The gated Cardiolitestudy demonstrates myocardial thickening and inward wall motion. The reported LVEF is 86%. Impression: 1. Technically adequate (percent predicted maximal heart rate greater than 85%)exercise tolerance test 2. Peak exercise ECG with no ischemic changes. Mild chest pain reported with exercise. 3. Rare PVCs noted with exercise 4. Rest and stress SPECT Cardiolite nuclear imaging demonstrate relative uniform tracer uptake and myocardial perfusion appearing within normal limits. 5. The gated Cardiolite study reports an LVEF of 86%. This note was generated with Studio Kateation software. It may contain incorrectwords, spelling, and punctuation that were not noted in checking the note beforesigning. 04/01/25 1239 Date _ Anna Ragsdale MD CC: Dr. Anna Ragsdale MD; Dr. Chavo Mendosa MD ~ Date Dictated: 04/01/25 1237 Date Transcribed: 04/01/251236 Stone Cutter: MYRA Andrews [facility] Work Phone: Echo Completeon 04-01-2025 Echo Complete [facility] [address] [place] [id number] Echo Complete 04/01/25 0908 MR#: [id number] Acct: [id number] Name: JUAN R GARCIA Rep #: [id number] : 1965 59 From: Anna Ragsdale MD Attending Dr: Dr. Anna Ragsdale MD Status: REG I Ordering Dr: Anna Ragsdale MD Date: 04/01/25 Location: [facility] Sex: F C Admitted: Reason For Study Reason For Study: Chest Pain Procedure This was a 2D Doppler, Color Flow transthoracic echocardiogram. Exam performed in department. Left Ventricle Normal size and thickness. The LV systolic function is normal. EF is 65 %. No evidence for diastolic dysfunction. Right Ventricle Normal right ventricle. Atria The left and right atria are normal. Mitral Valve Trivial mitral valve insufficiency. Tricuspid Valve Normal tricuspid valve. Aortic Valve Trisinus/trileaflet aortic valve. Mild (1+) aortic valve insufficiency. Pulmonic Valve The pulmonic valve is not well visualized. Mild (1+) pulmonic valve insufficiency. Great Vessels Normal sized aortic root. Pericardium/Pleural No pericardial effusion. MMode/2D Measurements Calculations LVIDd: 3.7 cm IVSd: 0.86 cm LAV(MOD-bp): 16.6 ml LVIDs: 2.3 cm LVPWd: 0.73 cm LAV(MOD-bp) Indexed: 10.8 ml/m2 RVDd: 3.1 cm FS: 38.2 % LAV(MOD-sp2): 20.7 ml LAV(MOD-sp4): 13.4 ml SV(MOD-sp4): 40.1 ml SV(sp4-el): 42.7 ml LVAd ap4: 25.0 cm2 LVLd ap4: 7.8 cm SI(MOD-sp4): 26.0 ml/m2 EDV(MOD-sp4): 65.0 ml EDV(sp4-el): 68.3 ml LVAs ap4: 14.4 cm2 LVLs ap4: 6.8 cm ESV(MOD-sp4): 25.0 ml ESV(sp4-el): 25.6 ml EF(MOD-sp4): 61.6 % EF(sp4-el): 62.6 % LA A4 area: 7.8 cm2 LA dimension(2D): 2.6 cm RA A4 area: 8.9 cm2 TAPSE: 1.8 cm Time Measurements MV dec time: 0.25 sec Doppler Measurements Calculations MV E max trang: 60.7 cm/sec Lat Peak E' Trang: 11.4 cm/sec Med Peak E' Trang: 10.9 cm/sec MV A max trang: 60.8 cm/sec E/E' lat: 5.3 E/E' med: 5.6 MV E/A: 1.00 MV V2 max: 86.3 cm/sec MV P1/2t max trang: 88.0 cm/sec Ao V2 max: 127.9 cm/sec MV max P.0 mmHg MV P1/2t: 110.3 msec Ao max P.5 mmHg MV V2 mean: 48.4 cm/sec MV mean P.1 mmHg MV dec slope: 233.7 cm/sec2 MV V2 VTI: 32.9 cm MVA(P1/2t): 2.0 cm2 AI max trang: 415.9 cm/sec LV V1 max: 84.5 cm/sec AI max P.2 mmHg LV V1 max P.9 mmHg AI dec slope: 161.9 cm/sec2 AI P1/2t: 752.1 msec ECHO/Echo Complete Interpretation Summary The LV systolic function is normal. EF is 65 %. No evidence for diastolic dysfunction. Mild (1+) aortic valve insufficiency. Mild (1+) pulmonic valve insufficiency. Ordering Physician: Anna Ragsdale Referring Physician: Anna Ragsdale Performed By: Waylon Michel RCS 04/01/251156 Date Anna Ragsdale MD CC: Dr. Anna Ragsdale MD; Dr. Chavo Mendosa MD Date Dictated: 04/01/25907 Date Transcribed: 04/01/251156 Stone Cutter: Signed Normal [facility] Echocardiogram study reportO rdered By: Anna Ragsdale on 04-01-2025 Study report [facility] [address] [place] [address] Echo Complete 04/01/25907 MR#: [id number] Acct: [id number] Name: JUAN R GARCIA Rep #:[id number] : 1965 59 From: Anna Ragsdale MD Attending Dr: Dr. Anna Ragsdale MD Status: REG CLI Ordering Dr: Anna Ragsdale MD Date: Location: [facility] Sex: F C Admitted: Reason For Study Reason For Study: Chest Pain Procedure This was a 2D Doppler, Color Flow transthoracic echocardiogram. Exam performed in department. Left Ventricle Normal size and thickness. The LV systolic function is normal. EF is 65 %. No evidence for diastolic dysfunction. Right Ventricle Normal right ventricle. Atria The left and right atria are normal. Mitral Valve Trivial mitral valve insufficiency. Tricuspid Valve Normal tricuspid valve. Aortic Valve Trisinus/trileaflet aortic valve. Mild (1+) aortic valve insufficiency. Pulmonic Valve The pulmonic valve is not well visualized. Mild (1+) pulmonic valve insufficiency. Great Vessels Normal sized aortic root. Pericardium/Pleural No pericardial effusion. MMode/2D Measurements & Calculations LVIDd: 3.7 cm IVSd: 0.86 cm LAV(MOD-bp): 16.6 ml LVIDs: 2.3 cm LVPWd: 0.73 cm LAV(MOD-bp) Indexed: 10.8 ml/m2 RVDd: 3.1 cm FS: 38.2 % LAV(MOD-sp2): 20.7 ml LAV(MOD-sp4): 13.4 ml SV(MOD-sp4): 40.1 ml SV(sp4-el): 42.7 ml LVAd ap4: 25.0 cm2 LVLd ap4: 7.8 cm SI(MOD-sp4): 26.0 ml/m2 EDV(MOD-sp4): 65.0 ml EDV(sp4-el): 68.3 ml LVAs ap4: 14.4 cm2 LVLs ap4: 6.8 cm ESV(MOD-sp4): 25.0 ml ESV(sp4-el): 25.6 ml EF(MOD-sp4): 61.6 % EF(sp4-el): 62.6 % LA A4 area: 7.8 cm2 LA dimension(2D): 2.6 cm RA A4 area: 8.9 cm2 TAPSE: 1.8 cm Time Measurements MV dec time: 0.25 sec Doppler Measurements & Calculations MV E max trang: 60.7 cm/sec Lat Peak E' Trang: 11.4 cm/sec Med Peak E' Trang: 10.9 cm/sec MV A max trang: 60.8 cm/sec E/E' lat: 5.3 E/E' med: 5.6 MV E/A: 1.00 MV V2 max: 86.3 cm/sec MV P1/2t max trang: 88.0 cm/sec Ao V2 max: 127.9 cm/sec MV max P.0 mmHg MV P1/2t: 110.3 msec Ao max P.5 mmHg MV V2 mean: 48.4 cm/sec MV mean P.1 mmHg MV dec slope: 233.7 cm/sec2 MV V2 VTI: 32.9 cm MVA(P1/2t): 2.0 cm2 AI max trang: 415.9 cm/sec LV V1 max: 84.5 cm/sec AI max P.2 mmHg LV V1 max P.9 mmHg AI dec slope: 161.9 cm/sec2 AI P1/2t: 752.1 msec ECHO/Echo Complete Interpretation Summary The LV systolic function is normal. EF is 65 %. No evidence for diastolic dysfunction. Mild (1+) aortic valve insufficiency. Mild (1+) pulmonic valve insufficiency. Ordering Physician: Anna Ragsdale Referring Physician: Anna Ragsdale Performed By: Waylon Michel RCS 04/01/25 115 Date _ Anna Ragsdale MD CC: Dr. Anna Ragsdale MD; Dr. Chavo Mendosa MD ~ Date Dictated: 04/01/25907 Date Transcribed: 04/01/25 115 Stone Cutter: Signed [facility] Work Phone: Stress Reporton 04-01-2025 Stress Report [facility] [address] [place] [address] MR#: [id number] Acct: [id number] Name: JUAN R GARCIA Rep #: [id number] : 1965 59 From: Anna Ragsdale MD Primary Care: Dr. Chavo Mendosa MD Status: REG CLI Referring Dr: Anna Ragsdale MD Sex: F C Stress Test Report Date: 04/01/2025 Procedure: Exercise tolerance test/imaging study Indications: Chest pain Consent: Per the patient Procedure: The patient exercised on a Macario protocol for 7 minutes and 59 seconds achieving a peak heart rate of 141 bpm (88% predicted maximal heart rate) with a peak blood pressure 166/78 mmHg and a peak MET capacity of 10.1 METs. The baseline ECG demonstrated sinus rhythm. The peak exercise ECG no ischemic changes. Rare PVCs noted with exercise. The functional capacity was considered very good for age. There was complaint of mild chest discomfort with exercise. The examination was discontinued secondary to target heart rate being achieved. The patient was injected with 11.7 mCi of technetium 99m Cardiolite and subsequently rest SPECT Cardiolite nuclear imaging was obtained in the horizontal long, vertical long, and short axis views. Post-exercise, the patient was injected with 33.3 mCi of technetium 99m Cardiolite and subsequently stress SPECT Cardiolite nuclear imaging was obtained in the horizontal long, vertical long, and short axis views. A gated Cardiolite study at peak stress was obtained. Rest and stress SPECT Cardiolite nuclear imaging status post realignment, normalization, and attenuation correction, demonstrates the appearance of relative uniform tracer uptake and myocardial perfusion appearing within normal limits. There is end systolic thickening and brightening. The gated Cardiolite study demonstrates myocardial thickening and inward wall motion. The reported LVEF is 86%. Impression: 1. Technically adequate (percent predicted maximal heart rate greater than 85%) exercise tolerance test 2. Peak exercise ECG with no ischemic changes. Mild chest pain reported with exercise. 3. Rare PVCs noted with exercise 4. Rest and stress SPECT Cardiolite nuclear imaging demonstrate relative uniform tracer uptake and myocardial perfusion appearing within normal limits. 5. The gated Cardiolite study reports an LVEF of 86%. This note was generated with Musicane dictation software. It may contain incorrect words, spelling, and punctuation that were not noted in checking the note before signing. 04/01/25 1239 Date Anan Ragsdale MD CC: Dr. Anna Ragsdale MD; Dr. Chavo Mendosa MD Date Dictated: 04/01/251236 Date Transcribed: 04/01/251236 Stone Cutter: MYRA Signed Normal [facility] Anion gap in Serum or Plasma Ordered By: Arlette Storey on 03-25-2025 Anion gap [Moles/Vol] 11 mmol/L 03-25 [facility] BUN/creatinine ratioOrdered By: Arlette Storey on 03-25-2025 Urea nitrogen/Creatinine [Mass ratio] 25.0 mg/mg High 10- [facility] Calculated very low density lipoprotein (VLDL) cholesterol measurementOrdered By: Anna Ragsdale on 03-25-2025 Calculated very low density lipoprotein (VLDL) cholesterol measurement 14 mg/dL - [facility] Carbon dioxide, total [Moles /volume] in Central venous bloodOrdered By: Arlette Storey on 03-25-2025 CO2 [Moles/Vol] 24.8 mmol/L 21.0-32.0 [facility] Chloride assayOrdered By: Tomasz Storey on 03-25-2025 Chloride [Moles/Vol] 104 mmol/L 98-108 [facility] Glomerular filtration rate ( GFR) estimation/1.73 sq m using serum, plasma, or whole bOrdered By: Arlette Storey on 03-25-2025 GFR/1.73 sq M.predicted among non-blacks MDRD (S/P/Bld) [Vol rate/Area] 53 mL/min/{1.73_m2} Low >60 [facility] Comment on above: mL/min/1.73m2 CKD-EP I Creatinine Equation (2020) LDL calc ser/plasOrdered By: Anna Ragsdale on 03-25-2025 Cholesterol in LDL [Mass/Vol] 93 mg/dL [facility] Comment on above: Hsxobqlbfj=644-256 m g/dL & Higher Arpj=975 mg/dL or greater Lipid Profileon 03-25-2025 CHOL:HDL 2.73 Normal [facility] Comment on above: Performed By: #### L 400.0001 #### [facility] Laboratory [address] [place], [address] Cholesterol [Mass/Vol] 168 mg/dL Normal <=200 [facility] Comment on above: Result Comment: Chol esterol level, Desirable <200 mg/dL Borderline high cholesterol 200-239 mg/dL High cholesterol >=240 mg/dL Recommendations of the NCEP Adult Treatment Panel for the following risk-cutoff thresholds for the [place] population. Performed By: #### L 400.0001 #### [facility] Laboratory [address] [place], [address] Cholesterol in HDL [Mass/Vol] 62 mg/dL Normal [facility] Comment on above: Result Comment: Roseline onal Cholesterol Education Program (NCEP) guidelines: <40 mg/dL: Low HDL-cholesterol (major risk factor for CHD) >= 60 mg/dL: High HDL-cholesterol (negative risk factor for CHD) HDL-cholesterol is affected by a number of factors, e.g. smoking, exercise, hormones, sex and age. Performed By: #### L 400.0001 #### [facility] Laboratory [address] [place], [address] Cholesterol in LDL [Mass/Vol] 93 mg/dL Normal [facility] Comment on above: Result Comment: Bord gfrblp=128-330 mg/dL Higher Oeno=528 mg/dL or greater Performed By: #### L 400.0001 #### [facility] Laboratory [address] [place], [address] Cholesterol in VLDL [Mass/Vol] 14 mg/dL Normal 5-40 [facility] Comment on above: Performed By: #### L 400.0001 #### [facility] Laboratory [address] [place], [address] Triglyceride [Mass/Vol] 68 mg/dL Normal [facility] Comment on above: Result Comment: The drugs N-Acetylcysteine and Metamizole may falsely depress this assay. Normal range: <150 mg/dL Borderline High: 150-199 mg/dL High: 200-499 mg/dL Very High: >500 mg/dL Performed By: #### L 400.0001 #### [facility] Laboratory [address] [place], [address] Potassium measurement (mass/ volume)Ordered By: Arlette Storey on 03-25-2025 Potassium (Unsp spec) [Mass/Vol] 4.0 mmol/L 3.3-5.1 [facility] Renal Profileon 03-25-2025 Albumin [Mass/Vol] 4.3 g/dL Normal 3.4-4.8 [facility] Comment on above: Performed By: #### L 500.3600 #### [facility] Laboratory [address] [place], [address] BUN/CRE 25.0 RATIO High 10-20 [facility] Comment on above: Performed By: #### L 500.3600 #### [facility] Laboratory [address] [place], [address] Calcium [Mass/Vol] 9.9 mg/dL Normal 7.6-11.0 [facility] Comment on above: Performed By: #### L 500.3600 #### [facility] Laboratory [address] [place], [address] Chloride [Moles/Vol] 104 mmol/L Normal 98-108 [facility] Comment on above: Performed By: #### L 500.3600 #### [facility] Laboratory [address] [place], [address] CO2 [Moles/Vol] 24.8 mmol/L Normal 21.0-32.0 [facility] Comment on above: Performed By: #### L 500.3600 #### [facility] Laboratory [address] [place], [address] Creatinine [Mass/Vol] 1.17 mg/dL Normal 0.70-1.20 [facility] Comment on above: Performed By: #### L 500.3600 #### [facility] Laboratory [address] [place], [address] GAP 11 Normal 5-15 [facility] Comment on above: Performed By: #### L 500.3600 #### [facility] Laboratory [address] [place], [address] GFR/1.73 sq M.predicted among non-blacks MDRD (S/P/Bld) [Vol rate/Area] 53 mL/min/{1.73_m2} Low >60 [facility] Comment on above: Result Comment: mL/m in/1.73m2 CKD-EPI Creatinine Equation (2020) Performed By: #### L 500.3600 #### [facility] Laboratory [address] [place], [address] Glucose [Mass/Vol] 98 mg/dL Normal 70-99 [facility] Comment on above: Performed By: #### L 500.3600 #### [facility] Laboratory [address] [place], [address] Phosphate [Mass/Vol] 4.0 mg/dL Normal 2.7-4.5 [facility] Comment on above: Performed By: #### L 500.3600 #### [facility] Laboratory [address] [place], [address] Potassium [Moles/Vol] 4.0 mmol/L Normal 3.3-5.1 [facility] Comment on above: Performed By: #### L 500.3600 #### [facility] Laboratory [address] [place], [address] Sodium [Moles/Vol] 140 mmol/L Normal 133-145 [facility] Comment on above: Performed By: #### L 500.3600 #### [facility] Laboratory [address] [place], [place], [address] Urea nitrogen [Mass/Vol] 29 mg/dL High 4-19 [facility] Comment on above: Performed By: #### L 500.3600 #### [facility] Laboratory [address] [place], [place], [address] Screening total cholesterol/ high density lipoprotein (HDL) cholesterol ratioOrdered By: Anna Ragsdale on 03-25-2025 Cholesterol.total/Lyla sterol in HDL [Mass ratio] 2.73 {ratio} [facility] Serum creatinine measurement (mass/volume)Ordered By: Arlette Storey on 03-25-2025 Creatinine [Mass/Vol] 1.17 mg/dL 0.70-1.20 [facility] Serum glucose measurement (m ass/volume)Ordered By: Arlette Storey on 03-25-2025 Glucose [Mass/Vol] 98 mg/dL 70-99 [facility] Serum or plasma albumin michael urement (mass/volume)Ordered By: Arlette Storey on 03-25-2025 Albumin [Mass/Vol] 4.3 g/dL 3.4-4.8 [facility] Serum or plasma calcium michael urement (mass/volume)Ordered By: Arlette Storey on 03-25-2025 Calcium [Mass/Vol] 9.9 mg/dL 7.6-11.0 [facility] Serum or plasma cholesterol in HDL measurement (mass/volume)Ordered By: Anna Ragsdale on 03-25-2025 Cholesterol in HDL [Mass/Vol] 62 mg/dL >40 [facility] Comment on above: National Cholesterol Education Program (NCEP) guidelines:<40 mg/dL: Low HDL-cholesterol (major risk factor for CHD)>= 60 mg/dL: High HDL-cholesterol (negative risk factor for CHD)HDL-cholesterol is affected by a number of factors, e.g. smoking, exercise, hormones, sex and age. Serum or plasma cholesterol measurement (mass/volume)Ordered By: Anna Ragsdale on 03-25-2025 Cholesterol [Mass/Vol] 168 mg/dL <201 [facility] Comment on above: Cholesterol level, D esirable <200 mg/dLBorderline high cholesterol 200-239 mg/dLHigh cholesterol >=240 mg/dLRecommendations of the NCEP Adult Treatment Panel for the following risk-cutoff thresholds for the [place] population. Serum or plasma urea nitroge n measurement (mass/volume)Ordered By: Arlette Storey on 03-25-2025 Urea nitrogen [Mass/Vol] 29 mg/dL High 4-19 [facility] Sodium levelOrdered By: Body Storey on 03-25-2025 Sodium [Moles/Vol] 140 mmol/L 133-145 [facility] Triglycerides measurementOrd ered By: Anna Ragsdale on 03-25-2025 Triglyceride [Mass/Vol] 68 mg/dL <199 [facility] Comment on above: The drugs N-Acetylcy steine and Metamizole may falsely depress this assay. Normal range: <150 mg/dLBorderline High: 150-199 mg/dLHigh: 200-499 mg/dLVery High: >500 mg/dL 12 [address] [facility] on 03-09-2025 12 Lead EKG performed by [facility] [address] [place] [address] 12 Lead E[address] performed by [facility] 03/09/25 1651 MR#: [id number] Acct: [id number] Name: JUAN R GARCIA Rep #: [id number] : 1965 59 From: Anna Ragsdale MD Attending Dr: Dr. Anna Ragsdale MD Status: DEP AMB Ordering Dr: Anna Ragsdale MD Date: 03/09/25 Location: [facility] Sex: F C Admitted: [facility]/12 Lead EKG performed by [facility] ECG Report Interpretation -----Sinus Bradycardia - Nonspecific T-abnormality. ABNORMAL Electronically signed on 04/07/2025 at 13:[address] Anna Ragsdale Bitbar Software Version 8610 04/07/25 1343 Date Anna Ragsdale MD CC: Dr. Chavo Mnedosa MD Date Dictated: 03/09/251650 Date Transcribed: 03/09/251650 Stone Cutter: MYRA Signed Normal [facility] Cardiology Visit Reporton Cardiology Visit Report [facility] [address] [place] [address] OFFICE VISIT Date of Service: 03/09/25 MR#: [id number] Acct: [id number] Name: JUAN R MCCARTNEY Rep #: [id number] : 1965 Provider: Dr. Anna Ragsdale MD Age/Sex: 59/F Location: [facility] Status: Signed HPI HPI History of Present Illness Details: This lady is an ex-smoker, quit smoking about 8 months ago, referred to us for finding of coronary artery calcification on a surveillance CT scan of her chest. Patient complains of occasional left-sided chest discomfort. This is not related to exertion. Lasts a second or 2 only. No associated shortness of breath or diaphoresis. No radiation to the arm neck or jaw. Patient complains of dyspnea only with strenuous exertion. No orthopnea. No PND. No ankle edema. No palpitations. No lightheadedness or dizziness. No syncope or presyncope. Intake Vital Signs 11/07/24 10:33 03/01/25 15:45 03/09/25 11:23 Height 5 ft 2 in 5 ft 2 in Weight: 117 lb 120 lb BMI 21.9 BP 130/72 H Blood Pressure Location Rt brachial Position Sitting Respiration 18 Pulse 55 L Pulse Source Monitor Pulse Oximetry (%) 98 Oxygen Delivery Method room air Intake Visit Reasons: CORONARY CALCIFICATIONS (DEONDRE) Nurse Assistant Required: No Accompanied by: Is patient in pain?: No Allergies nitrofurantoin (From Macrobid) Allergy (Verified 03/09/25 11:23) Hives Yeast Allergy (Verified 03/09/25 11:23) Other Medications ???Medication ???Instructions ???Recorded ???Confirmed ???Type clobetasol 0.05 % topical cream 1 applic topical PRN PRN Rash 01/1003/09/25 History estradiol 0.01% (0.1 mg/gram) 1 applic vaginal .TWICE WEEKLY 03/09/25 History vaginal cream potassium citrate 10 mEq (1,080 10 meq PO DAILY 02/01/23 03/09/25 History mg) tablet,extended release cyclosporine 0.05 % eye drops in a 1 drp ophthalmic (eye) TID 03/0103/09/25 History dropperette hydrochlorothiazide 12.5 mg capsule 12.5 mg PO DAILY Flush kidneys due 03/01/25 03/09/25 History to frequent Have you fallen in the past year?: No PFSH Medical History Vitamin D deficiency Hyperlipidemia, unspecified Atrophic vaginitis Lichen sclerosus Hypokalemia Dry eye History of positive PPD Diarrhea Chronic kidney disease Wears contact lenses Wears glasses Post-menopausal Cancer Alcohol use History of renal disease Kidney stones History of diverticulitis Former smoker History of stress test Cardiology follow-up encounter CKD (chronic kidney disease) Kidney stones Surgical History History of total hysterectomy Hx of cystoscopy H/O bilateral oophorectomy S/P complete hysterectomy H/O lithotripsy Family History Mother Cancer cervical Father Hypertension Kidney disease Brother Prediabetes Kidney disease Social History household members: spouse and children current occupational status: employed 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 Smoking Status: Former smoker alcohol intake: current alcohol intake frequency: holidays/special occasions only substance use type: does not use ROS Const Const: Positive for fatigue and weakness ENT ENT: Negative for dizziness or balance problems Cardio Chest Pain: Yes Palpitations: No Edema: None Muscle aches with walking: None Resp Respiratory: Positive for SOB with activity; Negative for SOB at rest or SOB orthopnea SOB lying down GI GI: Negative nausea, vomiting or heartburn Musc Musc: Negative for muscle weakness or balance problems Neuro Neuro: Positive for lightheadedness and weakness; Negative for dizziness, near syncope or syncope Endo Endo: Positive for fatigue Cardiology Exam Const Appearance: comfortable and no acute distress Nutritional Appearance: well nourished Neck Neck: no JVD Carotids: Negative bruit Chest Auscultation: Bilateral: Clear to Auscultation Cardio Rate: regular rate Rhythm: regular rhythm Heart sounds: S1 normal and S2 normal Neuro General: patient alert, patient awake and patient oriented x3 Extremities Lower Extremity Edema: None: Bilateral Supplemental Info Supplemental Information Labs: No Data to Display Diagnostics: Electrocardiogram Abdomen/Pelvis CT Pulmonary: No Data to Display Past Visits: Cardiology Visit 03/09/25 Assessment and Plan Assessment and Plan (1) Coronary artery disease: Status: Chronic Plan: Coronary artery calcification noted as an incidental finding on CT scan of ches (more content not included)... Normal [facility] Low Dose CT Lung Screeningon 02-12-[address] Lung Screening [facility] Imaging Services [address] [place] [id number] Lung Screening MR#: [id number] Acct: [id number] Name: JUAN R MCCARTNEY Rep #: [id number] : 1965 F 59 From: Kirit Hylton DO PCP: Dr. Chavo Mendosa MD Status: REG CLI Study: Low Dose CT Lung Screening Date of Exam: 02/12 Exam# [id number] Ordering Dr: Chavo Mendosa MD PROCEDURE: LOW DOSE CT LUNG SCREENING 02/12/2025 REASON FOR EXAM: HX OF TOBACCO USE, 20 pack years. TECHNIQUE: Low Dose CT Lung screening without contrast. Coronal and Sagittal reconstruction series were provided. One or more dose reduction techniques were used (e.g., Automated exposure control, adjustment of the mA and/or kV according to patient size, use of iterative reconstruction technique). REFERENCE LINK: [employer] Lung-RADS RADIATION DOSE SUMMARY: CTDlvol: 2.01 mGy DLP: 65.70 mGycm COMPARISON: Prior abdomen pelvis CT exams in 2024, 2023, 2022, FINDINGS: PULMONARY NODULES: (Only nodules >3mm are reported) Nodules described below are on the 1.2 mm slice thickness series, unless otherwise specified. Pulmonary Nodules: 8 mm pleural-based nodule in the right upper lobe, 47 of 236 5 mm nodule posterior lower lobe, slice 90 of 236. 5.7 mm nodule, slice 93 of 236 7.6 mm nodule posterior medial right lower lobe, slice 95 of 236 7.5 mm nodule posterior right lower lobe, slice 95 of 236 (same slice as above). No significant left lung nodules. Lymph Nodes:Few small AP window lymph nodes are seen. Sensitivity for hilar lymph nodes is diminished due to lack of IV contrast Heart and Vasculature:Heart size is normal.. Vessels are unremarkable. Coronary Artery Calcifications: Calcifications are seen in the left main coronary artery. Lungs and Airways: Severe centrilobular emphysema pattern throughout both lobes Pleura:Unremarkable. No pleural effusions. Upper Abdomen:Limited images straight no acute pathology Bones:Unremarkable. No aggressive process. CT/Low Dose CT Lung Screening IMPRESSION: Several small right lower lobe pulmonary nodules. Coronary artery calcification (CAC) is [id number] left main coronary artery. Lung-RADS Category: 3 consider six-month follow-up low-dose CT lung Other Significant Findings: None. Reading Location: [facility] CC: Dr. Chavo Mendosa MD Stone Cutter: Signed Normal [facility] Absolute lymphocyte countOrd ered By: Chavo Mendosa on 01-27-2025 Lymphocytes Auto (Unsp spec) [#/Vol] 2.30 10*3/uL 0.83-4.51 [facility] Absolute neutrophil countOrd ered By: Chavo Mendosa on 01-27-2025 Neutrophils (Bld) [#/Vol] 5.0 10*3/uL 2.0-7.7 [facility] Anion gap in Serum or Plasma Ordered By: Chavo Mendosa on 01-27-2025 Anion gap [Moles/Vol] 11 mmol/L 5-15 [facility] Automated lymphocyte count a s percentage of total leukocytesOrdered By: Chavo Mendosa on 01-27-2025 Lymphocytes/100 WBC Auto (Unsp spec) 28.4 % - [facility] BUN/creatinine ratioOrdered By: Chavo Mendosa on 01-27-2025 Urea nitrogen/Creatinine [Mass ratio] 21.0 mg/mg High 10-20 [facility] Basophil percentageOrdered B y: Chavo Mendosa on 01-27-2025 Basophils/100 WBC (Bld) 0.7 % 0-1 [facility] Bilirubin, totalOrdered By: Chavo Mendosa on 01-27-2025 Bilirubin [Mass/Vol] 0.16 mg/dL 0.00-1.30 [facility] CBC W/Diff, Automatedon 01-09 Absolute Lymph 2.30 X10 3/uL Normal 0.83-4.51 [facility] Comment on above: Performed By: #### L 400.0001 #### [facility] Laboratory [address] [place], [address] Absolute Neut 5.0 X10 3/uL Normal 2.0-7.7 [facility] Comment on above: Performed By: #### L 400.0001 #### [facility] Laboratory [address] [place], [address] Basophils/100 WBC (Bld) 0.7 % Normal 0-1 [facility] Comment on above: Performed By: #### L 400.0001 #### [facility] Laboratory [address] [place], [address] Eosinophils/100 WBC (Bld) 1.4 % Normal 0-5 [facility] Comment on above: Performed By: #### L 400.0001 #### [facility] Laboratory [address] [place], [address] Erythrocyte distribution width (RBC) [Ratio] 12.2 % Normal 11.6-14.6 [facility] Comment on above: Performed By: #### L 400.0001 #### [facility] Laboratory [address] [place], [address] Hematocrit (Bld) [Volume fraction] 42.0 % Normal 37-47 [facility] Comment on above: Performed By: #### L 400.0001 #### [facility] Laboratory [address] [place], [address] Hemoglobin (Bld) [Mass/Vol] 13.7 g/dL Normal 12.0-15.0 [facility] Comment on above: Performed By: #### L 400.0001 #### [facility] Laboratory [address] [place], [address] IG% 0.400 Normal 0.0-0.9 [facility] Comment on above: Result Comment: IG% - Immature Granulocytes (promyelocytes, myelocytes and metamyelocytes) > 1% indicates that a LEFT SHIFT is Present. Performed By: #### L 400.0001 #### [facility] Laboratory [address] [place], [address] Lymphocytes/100 WBC (Bld) 28.4 % Normal 19-41 [facility] Comment on above: Performed By: #### L 400.0001 #### [facility] Laboratory [address] [place], [address] MCH (RBC) [Entitic mass] 29.7 pg Normal 27.0-32.0 [facility] Comment on above: Performed By: #### L 400.0001 #### [facility] Laboratory [address] [place], [address] MCHC (RBC) [Mass/Vol] 32.6 g/dL Normal 32-36 [facility] Comment on above: Performed By: #### L 400.0001 #### [facility] Laboratory [address] [place], [address] MCV (RBC) [Entitic vol] 91.1 fL Normal 81-99 [facility] Comment on above: Performed By: #### L 400.0001 #### [facility] Laboratory [address] [place], [address] Monocytes/100 WBC (Bld) 7.5 % Normal 0-10 [facility] Comment on above: Performed By: #### L [id number] #### [facility] Laboratory [address] [place], [address] Neutrophils/100 WBC (Bld) 61.6 % Normal 47-70 [facility] Comment on above: Performed By: #### L 400.0001 #### [facility] Laboratory [address] [place], [address] Nucleated RBC (Bld) [#/Vol] 0 10*3/uL Normal 0-5 [facility] Comment on above: Performed By: #### L 400.0001 #### [facility] Laboratory [address] [place], [address] Platelet mean volume (Bld) [Entitic vol] 9.9 fL Normal 6.2-12.0 [facility] Comment on above: Performed By: #### L 400.0001 #### [facility] Laboratory [address] [place], [address] Platelets (Bld) [#/Vol] 278 10*3/uL Normal 150-450 [facility] Comment on above: Performed By: #### L 400.0001 #### [facility] Laboratory [address] [place], [address] RBC (Bld) [#/Vol] 4.61 10*6/uL Normal 4.2-5.4 [facility] Comment on above: Performed By: #### L 400.0001 #### [facility] Laboratory [address] [place], [address] RDW SD 40.4 fl Normal 35.1-43.9 [facility] Comment on above: Performed By: #### L 400.0001 #### [facility] Laboratory [address] [place], [address] WBC (Bld) [#/Vol] 8.1 10*3/uL Normal 4.4-11.0 [facility] Comment on above: Performed By: #### L 400.0001 #### [facility] Laboratory [address] [place], [address] Carbon dioxide, total [Moles /volume] in Central venous bloodOrdered By: Chavo Deondre on 01-27-2025 CO2 [Moles/Vol] 28.1 mmol/L 21.0-32.0 [facility] Chloride assayOrdered By: Amadou Mendosa on 01-27-2025 Chloride [Moles/Vol] 100 mmol/L 98-108 [facility] Comprehensive Metabolic Prof ilon 01-27-2025 Albumin [Mass/Vol] 4.6 g/dL Normal 3.4-4.8 [facility] Comment on above: Performed By: #### L 400.0001 #### [facility] Laboratory [address] [place], [place], [address] Albumin/Globulin [Mass ratio] 1.6 {ratio} Normal 0.9-2.4 [facility] Comment on above: Performed By: #### L [id number] #### [facility] Laboratory [address] [place], [address] ALK PHOS 68 U/L Normal 35-104 [facility] Comment on above: Performed By: #### L 400.0001 #### [facility] Laboratory [address] [place], [address] ALT [Catalytic activity/Vol] 16 U/L Normal <=34 [facility] Comment on above: Performed By: #### L 400.0001 #### [facility] Laboratory [address] [place], [address] AST [Catalytic activity/Vol] 23 U/L Normal <=31 [facility] Comment on above: Performed By: #### L [id number] #### [facility] Laboratory [address] [place], [address] Bilirubin [Mass/Vol] 0.16 mg/dL Normal 0.00-1.30 [facility] Comment on above: Performed By: #### L 400.0001 #### [facility] Laboratory [address] [place], [address] BUN/CRE 21.0 RATIO High 10-20 [facility] Comment on above: Performed By: #### L [id number] #### [facility] Laboratory [address] [place], [address] Calcium [Mass/Vol] 10.0 mg/dL Normal 7.6-11.0 [facility] Comment on above: Performed By: #### L 400.0001 #### [facility] Laboratory [address] [place], [address] Chloride [Moles/Vol] 100 mmol/L Normal 98-108 [facility] Comment on above: Performed By: #### L 400.0001 #### [facility] Laboratory [address] [place], [address] CO2 [Moles/Vol] 28.1 mmol/L Normal 21.0-32.0 [facility] Comment on above: Performed By: #### L 400.0001 #### [facility] Laboratory [address] [place], [address] Creatinine [Mass/Vol] 1.33 mg/dL High 0.70-1.20 [facility] Comment on above: Performed By: #### L 400.0001 #### [facility] Laboratory [address] [place], [address] GAP 11 Normal 5-15 [facility] Comment on above: Performed By: #### L 400.0001 #### [facility] Laboratory [address] [place], [address] GFR/1.73 sq M.predicted among non-blacks MDRD (S/P/Bld) [Vol rate/Area] 46 mL/min/{1.73_m2} Low >60 [facility] Comment on above: Result Comment: mL/m in/1.73m2 CKD-EPI Creatinine Equation (2020) Performed By: #### L 400.0001 #### [facility] Laboratory [address] [place], [address] Globulin (S) [Mass/Vol] 2.9 g/dL Normal 2.2-4.2 [facility] Comment on above: Performed By: #### L 400.0001 #### [facility] Laboratory [address] [place], [address] Glucose [Mass/Vol] 117 mg/dL High 70-99 [facility] Comment on above: Performed By: #### L [id number] #### [facility] Laboratory [address] [place], [address] Potassium [Moles/Vol] 4.5 mmol/L Normal 3.3-5.1 [facility] Comment on above: Result Comment: Hemo lysis present, Results??could be affected. ?? Performed By: #### L [id number] #### [facility] Laboratory [address] [place], [address] Sodium [Moles/Vol] 139 mmol/L Normal 133-145 [facility] Comment on above: Performed By: #### L 400.0001 #### [facility] Laboratory [address] [place], [address] T PROT 7.4 g/dL Normal 5.9-8.4 [facility] Comment on above: Performed By: #### L [id number] #### [facility] Laboratory [address] [place], [address] Urea nitrogen [Mass/Vol] 28 mg/dL High 4-19 [facility] Comment on above: Performed By: #### L 400.0001 #### [facility] Laboratory [address] [place], [address] Eosinophil percentageOrdered By: Chavo Mendosa on 01-27-2025 Eosinophils/100 WBC (Bld) 1.4 % 0-5 [facility] Erythrocyte distribution wid th ratioOrdered By: Chavo Mendosa on 01-27-2025 Erythrocyte distribution width (RBC) [Ratio] 12.2 % 11.6-14.6 [facility] Erythrocyte distribution wid th standard deviationOrdered By: Chavo Mendosa on 01-27-2025 Erythrocyte distribution width (RBC) [Entitic vol] 40.4 fL 35.1-43.9 [facility] Erythrocyte distribution width (RBC) [Ratio] 40.4 fl 35.1-43.9 [facility] GFR/1.73 sq M.predicted david g non-blacks MDRD (S/P/Bld) [Vol rate/Area]Ordered By: Chavo Mendosa on 01-27-2025 Estimated GFR (MDRD) Non-Af Amer 46 Low >60 [facility] Comment on above: mL/min/1.73m2 CKD-EP I Creatinine Equation (2020) Glomerular filtration rate ( GFR) estimation/1.73 sq m using serum, plasma, or whole bOrdered By: Chavo Mendosa 01-27-2025 GFR/1.73 sq M.predicted among non-blacks MDRD (S/P/Bld) [Vol rate/Area] 46 mL/min/{1.73_m2} Low >60 [facility] Comment on above: mL/min/1.73m2 CKD-EP I Creatinine Equation (2020) Hematocrit Auto (Bld) [Volum e fraction]Ordered By: Chavo Mendosa 01-27-2025 Hematocrit (Bld) [Volume fraction] 42.0 % 37-47 [facility] Hemoglobin measurementOrdere d By: Chavo Mendosa 01-27-2025 Hemoglobin (Bld) [Mass/Vol] 13.7 g/dL 12.0-15.0 [facility] Hepatitis C antibodyOrdered By: Chavo Mendosa 01-27-2025 Hepatitis C Antibody Non-Reactive Nonreactive [facility] Comment on above: Reactive: Presumptiv e evidence of antibodies to HCV. Follow CDC recommendations for supplemental testing.Non-Reactive: Antibodies to HCV were not detected; does not exclude the possibility of exposure to HCVReactive Results are presumptive evidence of antibodies to HCV. Follow CDC recommendations for supplemental testing.Order confirmation testing: HCV Quant by PCR testing - HCVPCR #[id number] Non Reactive: < 0.8 Equivocal: >/= 0.8 to < 1.0 Reactive: >/= 1.0The CDC requires that a reactive/equivocal HCV antibody result be sent out for confirmation. HCV Quant by PCR testing. Immature granulocytes/100 WB C Auto (Bld)Ordered By: Chavo Mendosa on 01-27-2025 Immature granulocytes/100 WBC (Bld) 0.400 % 0.0-0.9 [facility] Comment on above: IG% - Immature Granu locytes (promyelocytes, myelocytes and metamyelocytes) > 1% indicates that a LEFT SHIFT is Present. [id number] 01-27-2025 Hepatitis C Ab Non-Reactive Normal Nonreactive [facility] Comment on above: Result Comment: Reac tive: Presumptive evidence of antibodies to HCV. Follow CDC recommendations for supplemental testing. Non-Reactive: Antibodies to HCV were not detected; does not exclude the possibility of exposure to HCV Reactive Results are presumptive evidence of antibodies to HCV. Follow CDC recommendations for supplemental testing. Order confirmation testing: HCV Quant by PCR testing - HCVPCR #[id number] Non Reactive: < 0.8 Equivocal: >/= 0.8 to < 1.0 Reactive: >/= 1.0 The CDC requires that a reactive/equivocal HCV antibody result be sent out for confirmation. HCV Quant by PCR testing. Performed By: #### L 400.0001 #### [facility] Laboratory [address] [place], [place], [address] [id number] 01-27-2025 Vitamin D 25-OH 39.7 ng/mL Normal 30-100 [facility] Comment on above: Result Comment: Katie min D Status Deficiency: <20 ng/mL (50nmol/L) Insufficiency: 20-30 ng/mL (50-75 nmol/L) Sufficiency: 30-100 ng/mL (75-250 nmol/L) Toxicity: >100 ng/mL (>250 nmol/L) Performed By: #### L 400.0001 #### [facility] Laboratory [address] [place] [place], [place], [address] Laboratory - Chemistry and C hemistry - challengeOrdered By: Chavo Mendosa on 01-27-2025 AST [Catalytic activity/Vol] 23 U/L <32 [facility] Lymphocytes Auto (Unsp spec) [#/Vol]Ordered By: Chavo Mendosa on 01-27-2025 Lymphocytes (Bld) [#/Vol] 2.30 10*3/uL 0.83-4.51 [facility] Lymphocytes/100 WBC Auto (Un sp spec)Ordered By: Chavo Mendosa on 01-27-2025 Lymphocytes/100 WBC (Bld) 28.4 % 19-41 [facility] MCV (mean corpuscular volume ) determinationOrdered By: Chavo Mendosa on 01-27-2025 MCV (RBC) [Entitic vol] 91.1 fL 81-99 [facility] Mean corpuscular hemoglobin (MCH) determinationOrdered By: Chavo Mendosa on 01-27-2025 MCH (RBC) [Entitic mass] 29.7 pg 27.0-32.0 [facility] Mean corpuscular hemoglobin concentration (MCHC) determinationOrdered By: Chavo Mendosa on 01-27-2025 MCHC (RBC) [Mass/Vol] 32.6 g/dL 32-36 [facility] Mean platelet volume determi nationOrdered By: Chavo Mendosa on 01-27-2025 Platelet mean volume (Bld) [Entitic vol] 9.9 fL 6.2-12.0 [facility] Monocyte percentageOrdered B y: Chavo Gabrielok on 01-27-2025 Monocytes/100 WBC (Bld) 7.5 % 0-10 [facility] Neutrophil percentageOrdered By: Chavo Gabrielok on 01-27-2025 Neutrophils/100 WBC (Bld) 61.6 % 47-70 [facility] Nucleated red blood cell per centageOrdered By: Chavo Gabrielok on 01-27-2025 Nucleated RBC/100 WBC (Bld) [Ratio] 0 % 0-5 [facility] Platelet countOrdered By: Amadou Mendosa on 01-27-2025 Platelets (Bld) [#/Vol] 278 10*3/uL 150-450 [facility] Potassium (Unsp spec) [Mass/ Vol]Ordered By: Chavo Mendosa on 01-27-2025 Potassium [Moles/Vol] 4.5 mmol/L 3.3-5.1 [facility] Comment on above: Hemolysis present, R esults could be affected. Potassium measurement (mass/ volume)Ordered By: Chavo Mendosa on 01-27-2025 Potassium (Unsp spec) [Mass/Vol] 4.5 mmol/L 3.3-5.1 [facility] Comment on above: Hemolysis present, R esults could be affected. RBC Auto (Bld) [#/Vol]Ordere d By: Chavo Mendosa on 01-27-2025 RBC (Bld) [#/Vol] 4.61 10*6/uL 4.2-5.4 [facility] Serum creatinine measurement (mass/volume)Ordered By: Chavo Mendosa on 01-27-2025 Creatinine [Mass/Vol] 1.33 mg/dL High 0.70-1.20 [facility] Serum globulin measurementOr dered By: Chavo Mendosa 01-27-2025 Globulin (S) [Mass/Vol] 2.9 g/dL 2.2-4.2 [facility] Serum glucose measurement (m ass/volume)Ordered By: Chavo Mendosa 01-27-2025 Glucose [Mass/Vol] 117 mg/dL High 70-99 [facility] Serum or plasma alanine mahmood otransferase (ALT) measurementOrdered By: Chavo Mendosa 01-27-2025 ALT [Catalytic activity/Vol] 16 U/L <35 [facility] Serum or plasma albumin michael urement (mass/volume)Ordered By: Chavo Mendosa 01-27-2025 Albumin [Mass/Vol] 4.6 g/dL 3.4-4.8 [facility] Serum or plasma albumin/glob ulin mass ratioOrdered By: Chavo Mendosa 01-27-2025 Albumin/Globulin [Mass ratio] 1.6 {ratio} 0.9-2.4 [facility] Serum or plasma alkaline jin sphatase measurementOrdered By: Chavo Mendosa 01-27-2025 ALP [Catalytic activity/Vol] 68 U/L 35-104 [facility] Serum or plasma calcium michael urement (mass/volume)Ordered By: Chavo Mendosa 01-27-2025 Calcium [Mass/Vol] 10.0 mg/dL 7.6-11.0 [facility] Serum or plasma urea nitroge n measurement (mass/volume)Ordered By: Chavo Mendosa on 01-27-2025 Urea nitrogen [Mass/Vol] 28 mg/dL High 4-19 [facility] Sodium levelOrdered By: Chavo Mendosa on 01-27-2025 Sodium [Moles/Vol] 139 mmol/L 133-145 [facility] TSH DL <= 0.005 mIU/L QnOrde red By: Chavo Mendosa on 01-27-2025 Thyroid Stimulating Hormone (TSH) 0.651 uIU/mL 0.300-4.200 [facility] TSH Qn 0.651 uIU/mL 0.300-4.200 [facility] Thyroid Stim Hormone (TSH)on 01-27-2025 TSH 0.651 uIU/mL Normal 0.300-4.200 [facility] Comment on above: Performed By: #### L 400.0001 #### [facility] Laboratory [address] [place] [address], [address] Total proteinOrdered By: Chavo Mendosa on 01-27-2025 Protein [Mass/Vol] 7.4 g/dL 5.9-8.4 [facility] Vitamin D, 25-hydroxyOrdered By: Chavo Mendosa on 01-27-2025 Vitamin D 25-Hydroxy 39.7 ng/mL 30-100 [facility] Comment on above: Vitamin D StatusDefi ciency: <20 ng/mL (50nmol/L)Insufficiency: 20-30 ng/mL (50-75 nmol/L)Sufficiency: 30-100 ng/mL (75-250 nmol/L)Toxicity: >100 ng/mL (>250 nmol/L) White blood cell (WBC) count Ordered By: Chavo Mendosa on 01-27-2025 WBC (Bld) [#/Vol] 8.1 10*3/uL 4.4-11.0 [facility] [id number] 01-19-2025 [facility] Misc. COMMENT Normal . [facility] Comment on above: Order Comment: [id number] [id number] CITRIC ACID URINE Result Comment: Test Ordered: [id number] Citric Acid (Citrate), Urine Test(s) 559021-Vzruqd Acid, Urine was developed and its performance characteristics determined by [facility]. It has not been cleared or approved by the Food and Drug Administration. Citric Acid, Urine 516 mg/L Reference Range: Undefined Citric Acid, U, 24hr 826 mg/24 hr BN Reference Range: 320-1240 Performed at: - [address] [id number] Machinist Instructor: Sobia Griggs MD, Phone: [phone] Performed at: - [address] [id number] Machinist Instructor: Ghanshyam Gaffney PhD, Phone: [phone] Performed By: #### L 100.0100, L500.2500 #### [facility] Laboratory [address] [place], [address] 24 HR Urine Creatinineon UR.CREAT/24hr Normal 0.70-1.90 [facility] Comment on above: Result Comment: DONE ALREADY Performed By: #### L 502.000, L501.5280, L500.7000 #### [facility] Laboratory [address] [place], [address] URINE CREAT Normal NO RANGE EST. [facility] Comment on above: Result Comment: DONE ALREADY Performed By: #### L 502.000, L501.5280, L500.7000 #### [facility] Laboratory [address] [place], [address] Calcium, Urine 24HRon 2024 24HR UR Calcium Normal 42.0-353.0 [facility] Comment on above: Result Comment: DONE ALREADY Performed By: #### L 502.000, L501.5280, L500.7000 #### [facility] Laboratory [address] [place], [address] Calcium UR pH Normal [facility] Comment on above: Result Comment: DONE ALREADY Performed By: #### L 502.000, L501.5280, L500.7000 #### [facility] Laboratory [address] [place], [address] UR Collect Time Normal 24.0 [facility] Comment on above: Result Comment: DONE ALREADY Performed By: #### L 502.000, L501.5280, L500.7000 #### [facility] Laboratory [address] [place], [address] UR Total Volume Normal [facility] Comment on above: Result Comment: DONE ALREADY Performed By: #### L 502.000, L501.5280, L500.7000 #### [facility] Laboratory [address] [place], [address] Urine Calcium Normal Not Estab. [facility] Comment on above: Result Comment: DONE ALREADY Performed By: #### L 502.000, L501.5280, L500.7000 #### [facility] Laboratory [address] [place], [address] Electrolytes, 24 HR URon UR CL Normal Not Establ. [facility] Comment on above: Result Comment: DONE ALREADY Performed By: #### L 502.000, L501.5280, L500.7000 #### [facility] Laboratory [address] [place], [address] UR CL/24 hr Normal 110-250 [facility] Comment on above: Result Comment: DONE ALREADY Performed By: #### L 502.000, L501.5280, L500.7000 #### [facility] Laboratory [address] [place], [address] UR K Normal Not Establ. [facility] Comment on above: Result Comment: DONE ALREADY Performed By: #### L 502.000, L501.5280, L500.7000 #### [facility] Laboratory [address] [place], [address] UR K/24 HR Normal 25-125 [facility] Comment on above: Result Comment: DONE ALREADY Performed By: #### L 502.000, L501.5280, L500.7000 #### [facility] Laboratory [address] [place], [address] UR NA Normal Not Establ. [facility] Comment on above: Result Comment: DONE ALREADY Performed By: #### L 502.000, L501.5280, L500.7000 #### [facility] Laboratory [address] [place], [address] UR NA/24HR Normal 40-220 [facility] Comment on above: Result Comment: DONE ALREADY Performed By: #### L 502.000, L501.5280, L500.7000 #### [facility] Laboratory [address] [place], [address] 24 HR Urine Creatinineon UR COLLECT TIME 24.0 HOURS Normal 24.0 [facility] Comment on above: Performed By: #### L 501.5280, L502.000 #### [facility] Laboratory [address] [place], [address] UR TOTAL VOLUME 2.30 Normal [facility] Comment on above: Performed By: #### L 501.5280, L502.000 #### [facility] Laboratory [address] [place], [address] UR.CREAT/24hr 1.45 g/24 HR Normal 0.70-1.90 [facility] Comment on above: Performed By: #### L 501.5280, L502.000 #### [facility] Laboratory [address] [place], [address] URINE CREAT 63.10 mg/dL Normal NO RANGE EST. [facility] Comment on above: Performed By: #### L 501.5280, L502.000 #### [facility] Laboratory [address] [place], [address] 24 hour urine calcium measur ement (mass/time)Ordered By: Arlette Storey on 01-04-2025 Calcium (24H U) [Mass/Time] 253.0 mg/24 HR 42.0-353.0 [facility] 24 hour urine creatinine brooke surement (mass/time)Ordered By: Arlette Storey on 01-04-2025 Creatinine (24H U) [Mass/Time] 1.45 g/24 HR 0.70-1.90 [facility] 24 hour urine sodium measure ment (mass/time)Ordered By: Arlette Storey on 01-04-2025 Sodium (24H U) [Mass/Time] 214 mmol/24h 40-220 [facility] 24 hour urine specimen volum e measurementOrdered By: Arlette Storey on 01-04-2025 Specimen volume (24H U) 2.3 L [facility] Calcium (24H U) [Mass/Time]O rdered By: Arlette Storey on 01-04-2025 Urine Calcium 24 Hour 253.0 mg/24 HR 42.0-353.0 [facility] Calcium (U) [Mass/Vol]Ordere d By: Arlette Storey on 01-04-2025 Urine Calcium 11.0 mg/dL Not Estab. [facility] Calcium, Urine 24HRon 2024 24HR UR Calcium 253.0 mg/24 HR Normal 42.0-353.0 [facility] Comment on above: Performed By: #### L 400.0001 #### [facility] Laboratory [address] [place], [address] Calcium UR pH 1 Normal [facility] Comment on above: Performed By: #### L 400.0001 #### [facility] Laboratory [address] [place], [address] UR Collect Time 24.0 HR Normal 24.0-24.0 [facility] Comment on above: Performed By: #### L 400.0001 #### [facility] Laboratory [address] [place], [address] Urine Calcium 11.0 mg/dL Normal Not Estab. [facility] Comment on above: Performed By: #### L 400.0001 #### [facility] Laboratory [address] [place], [address] Chloride (U) [Moles/Vol]Orde red By: Arlette Storey on 01-04-2025 Urine Chloride 98 mmol/L Not Establ. [facility] Chloride ur 24hrOrdered By: Arlette Storey on 01-04-2025 Urine Chloride 24 Hour 226 mmol/24h 110-250 [facility] Collection duration (U)Order ed By: Arlette Storey on 01-04-2025 Urine Collection Duration 24.0 HOURS 24.0-24.0 [facility] Collection time (Sharonda) [Date/ time]Ordered By: Arlette Storey on 01-04-2025 Urine Collection Time 24.0 HR 24.0-24.0 [facility] Creatinine (24H U) [Mass/Winston e]Ordered By: Arlette Storey on 01-04-2025 Urine Creatinine 24 Hour 1.45 g/24 HR 0.70-1.90 [facility] Electrolytes, 24 HR URon Chloride [Moles/Vol] 98 mmol/L Normal Not Establ. [facility] Comment on above: Performed By: #### L 501.5280, L502.000 #### [facility] Laboratory [address] [place], [address] Potassium [Moles/Vol] 37.0 mmol/L Normal Not Establ. [facility] Comment on above: Performed By: #### L 501.5280, L502.000 #### [facility] Laboratory [address] [place], [address] UR CL/24 hr 226 mmol/24h Normal 110-250 [facility] Comment on above: Performed By: #### L 501.5280, L502.000 #### [facility] Laboratory [address] [place], [address] UR K/24 HR 86.0 mmol/24h Normal 25-125 [facility] Comment on above: Performed By: #### L 501.5280, L502.000 #### [facility] Laboratory [address] [place], [address] UR NA 93 mmol/L Normal Not Establ. [facility] Comment on above: Performed By: #### L 501.5280, L502.000 #### [facility] Laboratory [address] [place], [address] UR NA/24HR 214 mmol/24h Normal 40-220 [facility] Comment on above: Performed By: #### L 501.5280, L502.000 #### [facility] Laboratory [address] [place], [address] UR TOTAL VOLUME 2300 mL Normal [facility] Comment on above: Performed By: #### L 501.5280, L502.000 #### [facility] Laboratory [address] [place], [address] Performed By: #### L 400.0001 #### [facility] Laboratory [address] [place], [address] Laboratory - Chemistry and C hemistry - challengeOrdered By: Arlette Storey on 01-04-2025 pH (U) 1 [pH] [facility] Laboratory - Specimen inform ationOrdered By: Arlette Storey on 01-04-2025 Collection duration (U) 24.0 HOURS 24.0-24.0 [facility] Collection time (Sharonda) [Date/time] 24.0 HR 24.0-24.0 [facility] Potassium urine 24hrOrdered By: Arlette Storey on 01-04-2025 Urine Potassium 24 Hour 86.0 mmol/24h 25-125 [facility] Sodium (24H U) [Mass/Time]Or dered By: Arlette Storey on 01-04-2025 Urine Sodium 24 Hour 214 mmol/24h 40-220 [facility] Sodium urOrdered By: Dot Storey on 01-04-2025 Sodium (U) [Moles/Vol] 93 mmol/L Not Establ. [facility] Specimen volume (24H U)Order ed By: Arlette Storey on 01-04-2025 Urine Total Volume 2300 ml [facility] Urine calcium measurement (m ass/volume)Ordered By: Arlette Storey on 01-04-2025 Calcium (U) [Mass/Vol] 11.0 mg/dL Not Estab. [facility] Urine chloride measurement ( moles/volume)Ordered By: Arlette Storey on 01-04-2025 Chloride (U) [Moles/Vol] 98 mmol/L Not Establ. [facility] Urine creatinine measurement Ordered By: Arlette Storey on 01-04-2025 Creatinine (U) [Mass/Vol] 63.10 mg/dL NO RANGE EST. [facility] Urine potassium measurementO rdered By: Arlette Storey on 01-04-2025 Urine Potassium 37.0 mmol/L Not Establ. [facility] Abdomen/Pelvis without Conto n 01-01-2025 Abdomen/Pelvis without Cont [facility] Imaging Services [address] [place], [place] [address] Abdomen/Pelvis without Cont MR#: [id number] Acct: [id number] Name: JUAN R MCCARTNEY Rep #: [id number] : 1965 F 59 From: Anival glavez MD PCP: Dr. Alejo Fletcher MD Status: REG CLI Study: Abdomen/Pelvis without Cont Date of Exam: 12/13 12/05 Exam# [id number] Ordering Dr: Avelina Rios MD PROCEDURE: ABDOMEN/PELVIS WITHOUT CONT REASON FOR EXAM: History of bilateral renal calculi. Follow-up examination. TECHNIQUE: Abdomen and pelvis CT without intravenous contrast. No oral contrast.. Multiple axial tomographic images were obtained without intravenous contrast administration. Coronal and sagittal reconstruction was obtained as well. COMPARISON: 1 FINDINGS: Noncontrast technique limits evaluation of the abdominal and pelvic viscera. Lung bases: Clear Liver: Unremarkable. Gallbladder: Unremarkable. Spleen: Unremarkable. Pancreas: Unremarkable. Adrenals: Unremarkable. Kidneys: Tiny nonobstructive left intrarenal calculi. Tiny nonobstructive right intrarenal calculi in the mid and lower pole calices. No evidence of the ureteral calcification or hydronephrosis. Bladder: Unremarkable. Reproductive Organs: Prior hysterectomy. Adnexal regions are unremarkable. Bowel: Unremarkable. Appendix: Normal. Lymph nodes: No suspicious lymph node enlargement. Vasculature: Major vascular structures are unremarkable. Peritoneum / Retroperitoneum: No ascites. No free air. Bones: Straightening of the normal lumbar lordosis. CT/Abdomen/Pelvis without Cont IMPRESSION: Stable small nonobstructive bilateral intrarenal calculi. No evidence of ureteral obstruction. No evidence of hydronephrosis. One or more dose reduction techniques were used (e.g., Automated exposure control, adjustment of the mA and/or kV according to patient size, use of iterative reconstruction technique). Reading Location: [place] [address] CC: Dr. Avelina Rios MD; Dr. Alejo Fletcher MD Stone Cutter: Signed Normal [facility] Blood urea nitrogen (BUN)/cr eatinine ratioOrdered By: Arlette Storey on 12-23-2024 Urea nitrogen/Creatinine [Mass ratio] 25.7 mg/mg High 10-20 [facility] CNOVon 12-23-2024 CNOV Office Visit (GENSWS ) JUAN R GARCIA ([id number]) 1965 F Date Time Provider Department 12/23/24 9:30 AM TANA PETERSON During your visit today, we recorded the following information about you: Temperature Pulse Respiration Blood pressure 97.5 degrees 71/minute 16/minute 116/62 Weight 53.4 kg Tana Peterson APRN.CNP 12/23/2024 10:23 AM Signed HISTORY AND PHYSICAL Juan R Pollack 1965 REFERRING PHYSICIAN: No ref. provider found CHIEF COMPLAINT: Diarrhea HPI: The patient is a 59 year old female with a complaint of watery diarrhea. Cecia underwent colonoscopy in July for diarrhea and fecal leukocytes. She was found to have collagenous colitis on random colon biopsy. At the time of follow up, one week later, her symptoms had resolved. She did c/o soft stools but noted improvement and did not want to pursue prescription treatment. Today she notes: diarrhea about 1 month after colonoscopy. -happening most often after 45 minutes after eating. Food group does not make a difference -diarrhea is stool AND watery -tried pepto-bismol specific for diarrhea AND notes no improvement and that it only turned her stools dark. -takes a live probiotic -was told by METALLOGRAPHY TEACHER to ask about SIBO testing -notes she has recently been having some kidney issues including calculus of kidney AND multiple kidney stones been following with nephrology AND urology at [facility]. PAST MEDICAL HISTORY Diagnosis Date Adjustment disorder with depressed mood 01/14/2008 AK (actinic keratosis) 01/27/202401/2024: left upper chest cryo, Calculus of kidney CKD (chronic kidney disease) stage 3, GFR 30-59 ml/min ([facility]) 10/29/[address] Storey COPD (Chronic Obstructive Pulmonary Disease) 04/01/2010 Corpus luteum cyst or hematoma Decreased libido 10/19/2013 Diverticulosis of intestine without bleeding 06/24/2018 Elevated hemoglobin A1c 02/06/2022 Ex-smoker 01/18/2016 Quit 2011. Smoked for about 20 yrs up to 1 PPD History of cervical cancer 1998 Hypotestosteronism 10/19/2013 Internal hemorrhoids without mention of complication 04/27/2008 Irritable bowel syndrome 08/18/2008 Lichen sclerosus et atrophicus 2015 biopsy done Lung nodules 01/28/2024 CT 01/2024 stable compared to 2014. No more f/u needed. Neck pain 04/01/2010 Personal history of tuberculosis 12/29/2005 Was treated. Stage 3a chronic kidney disease (HCC) 10/29/[address] Storey Vertigo 04/01/2010 rare PAST SURGICAL HISTORY Procedure Laterality Date COLONOSCOPY 07/30/2024 COLONOSCOPY FLX DX W/COLLJ SPEC WHEN PFRMD 10/27/2015 Colonoscopy, repeat 10 yrs COLONOSCOPY W/BIOPSY SINGLE/MULTIPLE 04/27/2008 LITHOTRIPSY XTRCORP SHOCK WAVE 11/11/1995 Lithotripsy LITHOTRIPSY XTRCORP SHOCK WAVE Right 02/07/[address] 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 Current Outpatient Medications Medication Sig tamsulosin (FLOMAX) 0.4 mg Take 0.4 mg by mouth daily at bedtime. oxyCODONE-acetaminoph en (PERCOCET) 5-325 mg tablet Take 1 tablet by mouth every 8 hours as needed. estradiol (ESTRACE) 0.01 % (0.1 mg/gram) vaginal cream Use 1 g vaginally two times a week. clobetasol (TEMOVATE) 0.05 % ointment apply a pea-sized amount to vulva qhs. May use 1-2 times daily for 7-10 days prn flares. MULTIVITAMIN ORAL Take by mouth. budesonide (ORTIKOS) 9 mg capsule, extended release Take 1 capsule by mouth every morning. scopolamine (TRANSDERM-SCOP) patch 1.5 mg/72 hr (delivers 1 mg over 3 days) Apply 1 Patch as directed every [address] first patch 12 hrs before departure. (Patient not taking: Reported on 12/23/2024) No current facility-administered medications for this visit. ALLERGIES: Nitrofurantoin and Yeast, Dried PERSONAL HISTORY: Social History Tobacco Use Smoking status: Former Current packs/day: 0.00 Average packs/day: 0.5 packs/day for 15.0 years (7.5 ttl pk-yrs) Types: Cigarettes Start date: 2000 Quit date: 2016 Years since quittin.1 Smokeless tobacco: Never Vaping Use Vaping status: Never Used Substance Use Topics Alcohol use: Yes Comment: occasional- 1-2 times per month Drug use: No FAMILY HISTORY: FAMILY HISTORY Problem Relation Age of Onset Cervical Cancer Mother Diabetes Mother Hypertension Father Stroke Father Aortic and brain aneurysm 2015 Heart Father other (nephrolithiasis) Father also in Maternal aunt Diabetes Brother Hypertension Brother Breast Cancer Maternal Grandmother Coronary Artery Disease Paternal Uncle REVIEW OF SYMPTOMS: See HPI PHYSICAL EXAMINATION: General: The patient is 59 year old female, well nourished, well hydrated in no acute distress. The patient is oriented to time, place, and person. VITALS: Blood pressure 116/62, pulse 71, temperature 36.4 ?C (97.5 ?F), temperature source Temporal Romelia (more content not included)... Normal [facility] [place] 12-23-2024 [facility] Tele[facility] (Dotted BlockS) NATALIIA JUAN R POLLACK ([id number]) 1965 F Date Time Provider Department 12/23/24 TANA PETERSON During your visit today, we recorded the following information about you: Joel Acosta 12/23/2024 10:57 AM Signed Patient asking for her Gastro referral to be faxed over to [facility]. Please review. Joel Acosta December 23, 2024 10:57 AM Allergies As of Date: 12/23/2024 Noted Allergy Reaction NITROFURANTOIN 10/16/2016 14 - Other: See Comments Comments: Chest pain, sob, and body aches YEAST, DRIED 11/27/2005 16 - Unknown Date Reviewed: 12/23/2024 Reviewed by: Susana Florentino, RN - Fully Assessed Reason for Visit: Orders [681] Prescriptions as of 01/25/2025 - budesonide (ORTIKOS) 9 mg capsule, extended release Take 1 capsule by mouth every morning. - tamsulosin (FLOMAX) 0.4 mg Take 0.4 mg by mouth daily at bedtime. - oxyCODONE-acetaminoph en (PERCOCET) 5-325 mg tablet Take 1 tablet by mouth every 8 hours as needed. - estradiol (ESTRACE) 0.01 % (0.1 mg/gram) vaginal cream Use 1 g vaginally two times a week. - clobetasol (TEMOVATE) 0.05 % ointment apply a pea-sized amount to vulva qhs. May use 1-2 times daily for 7-10 days prn flares. - MULTIVITAMIN ORAL Take by mouth. Meds Comments as of 10/27/2018: OTC Probiotic Problem List As Of Date 12/23/2024 Noted Resolved Calculus of kidney [N20.0] 11/27/2005 Personal history of tuberculosis [Z86.11] 12/29/2005 ABNORMAL FINDINGS NEC [R68.89] 12/29/2005 01/14/2008 Tobacco Use Disorder [F17.200] 12/29/2005 04/01/2010 CHEST PAIN UNSPECIFIED [R07.9] 12/29/2005 01/14/2008 OTITIS EXTERNA [H60.399] 02/02/2006 01/14/2008 PAIN LEG [M79.609] 11/18/2006 01/14/[address] or female climacteric st*01/14/2008 09/20/2015 Diarrhea [R19.7] 03/20/2008 Internal hemorrhoids without mention of complic*04/27/2008 Irritable bowel syndrome [K58.9] 08/18/2008 COPD (Chronic Obstructive Pulmonary Disease) [J*04/01/2010 Vertigo [R42] 04/01/2010 Neck pain [M54.2] 04/01/2010 Decreased libido [R68.82] 10/19/2013 05/23/2020 Hypotestosteronism [E34.9] 10/19/2013 Encounter for screening for malignant neoplasm *10/27/2015 10/27/2015 Encounter for gynecological examination without*01/18/2016 Smoker [F17.200] 01/18/2016 12/21/2016 Lichen sclerosus et atrophicus [L90.0] Screen for colon cancer [Z12.11] 01/18/2016 Stage 3a chronic kidney disease (HCC) [N18.31] 10/29/2017 Diverticulosis of intestine without bleeding [K*06/24/2018 History of cervical cancer [Z85.41] 11/11/1998 05/23/2020 Ex-smoker [Z87.891] 01/18/2016 Lung nodule [R91.1] 11/08/2021 Elevated hemoglobin A1c [R73.09] 02/06/2022 Neoplasm of uncertain behavior of skin of chest*01/15/2024 AK (actinic keratosis) [L57.0] 01/27/2024 Lung nodules [R91.8] 01/28/2024 Encounter Status:Closed by JOEL ACOSTA on 01/25/[address] [facility] Carbon dioxide measurementOr dered By: Arlette Storey on 12-23-2024 CO2 [Moles/Vol] 30.0 mmol/L 21.0-32.0 [facility] Chloride measurementOrdered By: Arlette Storey on 12-23-2024 Chloride [Moles/Vol] 106 mmol/L 98-107 [facility] Estimated glomerular filtrat ion rate (GFR) AmericanOrdered By: Arlette Storey on 12-23-2024 Estimated GFR (MDRD) Amer 63 mL/min >60 [facility] [facility] Comment on above: GFR Calc Glomerular filtration rate ( GFR) estimationOrdered By: Arlette Storey on 12-23-2024 Estimated GFR (MDRD) Non-Af Amer 52 mL/min Low >60 [facility] [place] Comment on above: Non- GFR Calc GFR/1.73 sq M.predicted among non-blacks MDRD (S/P/Bld) [Vol rate/Area] 52 mL/min/{1.73_m2} Low >60 [facility] [place] Comment on above: Non- GFR Calc Glucose measurementOrdered B y: Arlette Storey on 12-23-2024 Glucose [Mass/Vol] 99 mg/dL 74-106 [facility] Phosphorus measurementOrdere d By: Arlette Storey on 12-23-2024 Phosphorus Level 3.3 mg/dL 2.5-4.9 [facility] [place] Potassium measurementOrdered By: Arlette Storey on 12-23-2024 Potassium [Moles/Vol] 4.5 mmol/L 3.5-5.1 [facility] Comment on above: Slight Hemolysis, Re sult may be falsely increased. Renal Profileon 12-23-2024 Albumin [Mass/Vol] 3.8 g/dL Normal 3.2-5.0 [facility] Comment on above: Performed By: #### L 400.0001 #### [facility] [place] Laboratory [address] [place], [place], [id number] BUN/CRE 25.7 RATIO High 10-20 [facility] [place] Comment on above: Performed By: #### L 400.0001 #### [facility] [place] Laboratory [address] [place], [address] CA,Total 9.4 mg/dL Normal 8.5-10.1 [facility] [place] Comment on above: Performed By: #### L 400.0001 #### [facility] [place] Laboratory [address] [place], [address] Chloride [Moles/Vol] 106 mmol/L Normal 98-107 [facility] Comment on above: Performed By: #### L 400.0001 #### [facility] [place] Laboratory [address] [place], [address] CO2 [Moles/Vol] 30.0 mmol/L Normal 21.0-32.0 [facility] [place] Comment on above: Performed By: #### L 400.0001 #### [facility] [place] Laboratory [address] [place], [address] Creatinine [Mass/Vol] 1.13 mg/dL High 0.55-1.02 [facility] Comment on above: Result Comment: The validity of the calculated GFR GFRAA in patients over 70 years has not been determined. Clinical correlation is essential. Performed By: #### L 400.0001 #### [facility] Laboratory [address] [place], [address] EST GFR - AA 63 mL/min Normal >60 [facility] [place] Comment on above: Result Comment: Afri can Moroccan GFR Calc Performed By: #### L 400.0001 #### [facility] [place] Laboratory [address] [place], [address] GFR/1.73 sq M.predicted among non-blacks MDRD (S/P/Bld) [Vol rate/Area] 52 mL/min/{1.73_m2} Low >60 [facility] [place] Comment on above: Result Comment: Non- GFR Calc Performed By: #### L 400.0001 #### [facility] [place] Laboratory [address] [place], [address] Glucose [Mass/Vol] 99 mg/dL Normal 74-106 [facility] Comment on above: Performed By: #### L 400.0001 #### [facility] [place] Laboratory [address] [place], [address] Phosphate [Mass/Vol] 3.3 mg/dL Normal 2.5-4.9 [facility] Comment on above: Performed By: #### L 400.0001 #### [facility] [place] Laboratory [address] [place], [address] Potassium [Moles/Vol] 4.5 mmol/L Normal 3.5-5.1 [facility] Comment on above: Result Comment: Slig ht Hemolysis, Result may be falsely increased. Performed By: #### L 400.0001 #### [facility] [place] Laboratory [address] [place], [address] Sodium [Moles/Vol] 140 mmol/L Normal 136-145 [facility] Comment on above: Performed By: #### L 400.0001 #### [facility] [place] Laboratory [address] [place], [address] Urea nitrogen [Mass/Vol] 29 mg/dL High 7-18 [facility] [place] Comment on above: Performed By: #### L 400.0001 #### [facility] [place] Laboratory [address] [place], [address] Serum or plasma albumin michael urement (mass/volume)Ordered By: Arlette Storey on 12-23-2024 Albumin [Mass/Vol] 3.8 g/dL 3.2-5.0 [facility] Serum or plasma calcium michael urement (mass/volume)Ordered By: Arlette Storey on 12-23-2024 Calcium [Mass/Vol] 9.4 mg/dL 8.5-10.1 [facility] Serum or plasma creatinine m easurement (mass/volume)Ordered By: Arlette Storey on 12-23-2024 Creatinine [Mass/Vol] 1.13 mg/dL High 0.55-1.02 [facility] Comment on above: The validity of the calculated GFR & GFRAA in patients over 70 years has not been determined. Clinical correlation is essential. Serum or plasma urea nitroge n measurement (mass/volume)Ordered By: Arlette Storey on 12-23-2024 Urea nitrogen [Mass/Vol] 29 mg/dL High 7-18 [facility] Sodium levelOrdered By: Boyd Storey on 12-23-2024 Sodium [Moles/Vol] 140 mmol/L 136-145 [facility] CNOVon 11-25-2024 CNOV Office Visit (OBGYWM ) JUAN R GARCIA ([id number]) 1965 F Date Time Provider Department 11/25/24 9:20 AM TANYA BRAR OBGYWM During your visit today, we recorded the following information about you: Blood pressure Weight Height 124/62 50.8 kg 1.556 m Tanya Brar MD 11/25/2024 10:00 AM Signed Lead Java Programmer offered: Patient declines. Pete is a 58 year old who presents for an annual gynecologic exam with complaints, vaginal dryness. Despite estrogen. Had pelvic floor PT. Uses OTC lubrication. Postmenopausal: yes HRT use: vaginal. Still get period: No Menopause symptoms: Vaginal dryness Time with current partner: 27 control frequency: Never HPV vaccine: No; Last pap smear: 11/18/2023 History of abnormal pap: Yes, history of abnormal PAP smears Leep: No. Cone biopsy: No. 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 Storey COPD (Chronic Obstructive Pulmonary Disease) 04/01/2010 Corpus luteum cyst or hematoma Decreased libido 10/19/2013 Diverticulosis of intestine without bleeding 06/24/2018 Elevated hemoglobin A1c 02/06/2022 Ex-smoker 01/18/2016 Quit 2011. Smoked for about 20 yrs up to 1 PPD History of cervical cancer 1998 Hypotestosteronism 10/19/2013 Internal hemorrhoids without mention of complication 04/27/2008 Irritable bowel syndrome 08/18/2008 Lichen sclerosus et atrophicus 2014 biopsy done Lung nodules 01/28/2024 CT 01/2024 stable compared to 2014. No more f/u needed. Neck pain 04/01/2010 Personal history of tuberculosis 12/29/2005 Was treated. Stage 3a chronic kidney disease (HCC) 10/29/[address] Storey Vertigo 04/01/2010 rare PAST SURGICAL HISTORY Procedure Laterality Date COLONOSCOPY 07/30/2024 COLONOSCOPY FLX DX W/COLLJ SPEC WHEN PFRMD 10/27/2015 Colonoscopy, repeat 10 yrs COLONOSCOPY W/BIOPSY SINGLE/MULTIPLE 04/27/2008 LITHOTRIPSY XTRCORP SHOCK WAVE 11/11/1995 Lithotripsy LITHOTRIPSY XTRCORP SHOCK WAVE Right 02/07/[address] 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 FAMILY HISTORY Problem Relation Age of Onset Cervical Cancer Mother Diabetes Mother Hypertension Father Stroke Father Aortic and brain aneurysm 2014 Heart Father other (nephrolithiasis) Father also in Maternal aunt Diabetes Brother Hypertension Brother Breast Cancer Maternal Grandmother Coronary Artery Disease Paternal Uncle SOCIAL HISTORY Social History Tobacco Use Smoking status: Former Current packs/day: 0.00 Average packs/day: 0.5 packs/day for 15.0 years (7.5 ttl pk-yrs) Types: Cigarettes Start date: 2000 Quit date: 2016 Years since quittin.0 Smokeless tobacco: Never Vaping Use Vaping status: Never Used Substance Use Topics Alcohol use: Yes Comment: occasional- 1-2 times per month Drug use: No REVIEW OF SYSTEMS Abdomen: No abdominal pain, nausea, vomiting, diarrhea, or constipation. No bloating, early satiety, indigestion, or increased flatulence. Bladder: No dysuria, gross hematuria, urinary frequency, urinary urgency, or incontinence Breast: No breast lumps, nipple d/c, overlying skin changes, redness or skin retraction Allergies and current medication updated:Yes SENSITIVE EXAM: The sensitive examination was discussed with the Patient or Patient's Authorized Adjudication Specialist. As applicable, any other physician, advance practice provider, medical student, or other health professional student that will be observing or involved in the sensitive examination for educational or training purposes was discussed with the Patient or Authorized Adjudication Specialist. The Patient or Authorized Adjudication Specialist has agreed to proceed with the sensitive examination. (Sensitive examination includes inspection and/or palpation of the breasts, pelvis, prostate and anorectal regions). EXAM: BP 124/62 Ht 5' 1.25 (1.56m) Wt 112 lb (50.8kg) BMI 20.98 kg/(m2). GENERAL: pleasant, female in no apparent distress HEENT: Normocephalic, atraumatic, mucus membranes moist, and no lesions NECK: Supple, full range of motion, no adenopathy, and thyroid normal DERMATOLOGY: Normal, without lesions, non-icteric, and non-hirsute BREAST: soft, non-tender, symmetric, no dominant mass, normal nipple-areolar complex, no lymphadenopathy, and no nipple dis (more content not included)... Normal [facility] Abdomen/Pelvis without Conto n 11-07-2024 Abdomen/Pelvis without Cont [facility] Imaging Services [address] [place] [id number] Abdomen/Pelvis without Cont MR#: [id number] Acct: [id number] Name: JUAN R POLLACK Rep #: [id number] : 1965 F 58 From: Leora trevizo MD PCP: Dr. Alejo Fletcher MD Status: REG ER Study: Abdomen/Pelvis without Cont Date of Exam: 10/12 07/04 Exam# [id number] Ordering Dr: Pooja Ac DO [id number] HISTORY: Kidney Stone. TECHNIQUE: Helically acquired images were obtained of the abdomen and pelvis without oral or IV contrast. A radiation dose optimization technique was used for this scan. 437 images. COMPARISON: 04/02/2023 FINDINGS: LOWER CHEST: Chronic emphysema in the lung bases. BOWEL: Mild fluid in the small bowel and colon. Bowel including appendix nondilated. Dense inspissated material in the appendix without periappendiceal inflammation. Colonic diverticulosis without focal pericolonic inflammatory change. PERITONEUM: No significant free fluid. LIVER: Unremarkable. GALLBLADDER/BILIARY TREE: Gallbladder present. SPLEEN/PANCREAS/ADREN AL GLANDS: Unremarkable. KIDNEYS AND URETERS: 2 mm left lower pole calculi. Very mild hydronephrosis and hydroureter with a 2 mm calculus in the very distal ureterovesical junction. 2-3 mm right lower pole calculi without hydronephrosis. VESSELS: No abdominal aortic aneurysm. Mild atherosclerosis. PELVIC ORGANS: Absent uterus. BONES: Degenerative change. CT/Abdomen/Pelvis without Cont IMPRESSION: Mild left hydronephrosis secondary to a 2 mm calculus in the very distal UVJ. Bilateral nephrolithiasis. Mild gastroenteritis/diarr heal illness with mild fluid distention of bowel. Colonic diverticulosis without acute diverticulitis. Electronically Signed: Leora Ag MD at 13:24 EST Reading Location ID and State: [facility] / [place] Tel , Service support , CC: Dr. Pooja Ac DO; Dr. Alejo Fletcher MD Stone Cutter: Signed Normal [facility] Absolute neutrophil countOrd ered By: Pooja Ac on 11-07-2024 Neutrophils (Bld) [#/Vol] 9.3 10*3/uL High 2.0-7.7 [facility] [place] Basic Metabolic Profile (BMP )on 11-07-2024 BUN/CRE 23.1 RATIO High 10-20 [facility] [place] Comment on above: Performed By: #### L 100.0100, L500.2500 #### [facility] Laboratory [address] [place], [address] CA,Total 10.0 mg/dL Normal 8.5-10.1 [facility] [place] Comment on above: Performed By: #### L 100.0100, L500.2500 #### [facility] [place] Laboratory [address] [place], [address] Chloride [Moles/Vol] 106 mmol/L Normal 98-107 [facility] Comment on above: Performed By: #### L 100.0100, L500.2500 #### [facility] [place] Laboratory [address] [place], [address] CO2 [Moles/Vol] 30.0 mmol/L Normal 21.0-32.0 [facility] [place] Comment on above: Performed By: #### L 100.0100, L500.2500 #### [facility] [place] Laboratory [address] [place], [address] Creatinine [Mass/Vol] 1.30 mg/dL High 0.55-1.02 [facility] Comment on above: Result Comment: The validity of the calculated GFR GFRAA in patients over 70 years has not been determined. Clinical correlation is essential. Performed By: #### L 100.0100, L500.2500 #### [facility] Laboratory [address] [place], [address] ECRCL 36.40 ml/min Normal [facility] Comment on above: Performed By: #### L 100.0100, L500.2500 #### [facility] Laboratory [address] [place], [address] EST GFR - AA 54 mL/min Low >60 [facility] [place] Comment on above: Result Comment: Afri can Moroccan GFR Calc Performed By: #### L 100.0100, L500.2500 #### [facility] [place] Laboratory [address] [place], [address] GAP 4 Low 5-15 [facility] Comment on above: Performed By: #### L 100.0100, L500.2500 #### [facility] Laboratory [address] [place], [address] GFR/1.73 sq M.predicted among non-blacks MDRD (S/P/Bld) [Vol rate/Area] 44 mL/min/{1.73_m2} Low >60 [facility] Comment on above: Result Comment: Non- GFR Calc Performed By: #### L 100.0100, L500.2500 #### [facility] Laboratory [address] [place], [address] Glucose [Mass/Vol] 138 mg/dL High 74-106 [facility] Comment on above: Result Comment: Fast ing Glucose result greater than or equal to 126 mg/dL suggests DIABETES MELLITUS per A.D.A. criteria. Performed By: #### L 100.0100, L500.2500 #### [facility] Laboratory [address] [place], [address] Potassium [Moles/Vol] 4.0 mmol/L Normal 3.5-5.1 [facility] Comment on above: Performed By: #### L 100.0100, L500.2500 #### [facility] Laboratory [address] [place], [address] Sodium [Moles/Vol] 140 mmol/L Normal 136-145 [facility] Comment on above: Performed By: #### L 100.0100, L500.2500 #### [facility] Laboratory [address] [place], [address] Urea nitrogen [Mass/Vol] 30 mg/dL High 7-18 [facility] Comment on above: Performed By: #### L 100.0100, L500.2500 #### [facility] Laboratory [address] [place], [address] Basophil percentageOrdered B y: Pooja Ac on 11-07-2024 Basophils/100 WBC (Bld) 0.3 % 0-1 [facility] Bilirubin Test strip Ql (U)O rdered By: Pooja Ac on 11-07-2024 Bilirubin Ql (U) Negative Negative [facility] Blood urea nitrogen (BUN)/cr eatinine ratioOrdered By: Pooja Ac on 11-07-2024 Urea nitrogen/Creatinine [Mass ratio] 23.1 mg/mg High 10-20 [facility] CBC W/Diff, Automatedon 12-2 Absolute Lymph 1.46 X10 3/uL Normal 0.83-4.51 [facility] Comment on above: Performed By: #### L 100.0100, L500.2500 #### [facility] Laboratory [address] [place], [address] Absolute Neut 9.3 X10 3/uL High 2.0-7.7 [facility] Comment on above: Performed By: #### L 100.0100, L500.2500 #### [facility] Laboratory [address] [place], [address] Basophils/100 WBC (Bld) 0.3 % Normal 0-1 [facility] Comment on above: Performed By: #### L 100.0100, L500.2500 #### [facility] Laboratory [address] [place], [address] Eosinophils/100 WBC (Bld) 0.3 % Normal 0-5 [facility] Comment on above: Performed By: #### L 100.0100, L500.2500 #### [facility] Laboratory [address] [place], [address] Erythrocyte distribution width (RBC) [Ratio] 12.9 % Normal 11.6-14.6 [facility] Comment on above: Performed By: #### L 100.0100, L500.2500 #### [facility] Laboratory [address] [place], [address] Hematocrit (Bld) [Volume fraction] 41.3 % Normal 37-47 [facility] Comment on above: Performed By: #### L 100.0100, L500.2500 #### [facility] Laboratory [address] [place], [address] Hemoglobin (Bld) [Mass/Vol] 13.4 g/dL Normal 12.0-15.0 [facility] Comment on above: Performed By: #### L 100.0100, L500.2500 #### [facility] Laboratory [address] [place], [address] IG% 0.400 Normal 0.0-0.9 [facility] Comment on above: Result Comment: IG% - Immature Granulocytes (promyelocytes, myelocytes and metamyelocytes) > 1% indicates that a LEFT SHIFT is Present. Performed By: #### L 100.0100, L500.2500 #### [facility] Laboratory [address] [place], [address] Lymphocytes/100 WBC (Bld) 12.8 % Low 19-41 [facility] Comment on above: Performed By: #### L 100.0100, L500.2500 #### [facility] Laboratory [address] [place], [address] MCH (RBC) [Entitic mass] 30.2 pg Normal 27.0-32.0 [facility] Comment on above: Performed By: #### L 100.0100, L500.2500 #### [facility] Laboratory [address] [place], [address] MCHC (RBC) [Mass/Vol] 32.4 g/dL Normal 32-36 [facility] Comment on above: Performed By: #### L 100.0100, L500.2500 #### [facility] Laboratory [address] [place], [address] MCV (RBC) [Entitic vol] 93.0 fL Normal 81-99 [facility] Comment on above: Performed By: #### L 100.0100, L500.2500 #### [facility] Laboratory [address] [place], [address] Monocytes/100 WBC (Bld) 5.0 % Normal 0-10 [facility] Comment on above: Performed By: #### L 100.0100, L500.2500 #### [facility] Laboratory [address] [place], [address] Neutrophils/100 WBC (Bld) 81.2 % High 47-70 [facility] Comment on above: Performed By: #### L 100.0100, L500.2500 #### [facility] Laboratory [address] [place], [address] Nucleated RBC (Bld) [#/Vol] 0 10*3/uL Normal 0-5 [facility] Comment on above: Performed By: #### L 100.0100, L500.2500 #### [facility] Laboratory [address] [place], [address] Platelet mean volume (Bld) [Entitic vol] 10.4 fL Normal 6.2-12.0 [facility] Comment on above: Performed By: #### L 100.0100, L500.2500 #### [facility] Laboratory [address] [place], [address] Platelets (Bld) [#/Vol] 260 10*3/uL Normal 150-450 [facility] Comment on above: Performed By: #### L 100.0100, L500.2500 #### [facility] Laboratory [address] [place], [address] RBC (Bld) [#/Vol] 4.44 10*6/uL Normal 4.2-5.4 [facility] Comment on above: Performed By: #### L 100.0100, L500.2500 #### [facility] Laboratory [address] [place], [address] RDW SD 43.8 fl Normal 35.1-43.9 [facility] Comment on above: Performed By: #### L 100.0100, L500.2500 #### [facility] Laboratory [address] [place], [address] WBC (Bld) [#/Vol] 11.4 10*3/uL High 4.4-11.0 [facility] Comment on above: Performed By: #### L 100.0100, L500.2500 #### [facility] Laboratory [address] [place], [address] Carbon dioxide measurementOr dered By: Pooja Ac on 11-07-2024 CO2 [Moles/Vol] 30.0 mmol/L 21.0-32.0 [facility] Chloride measurementOrdered By: Pooja Ac on 11-07-2024 Chloride [Moles/Vol] 106 mmol/L 98-107 [facility] Emergency Department Summary on 11-07-2024 Emergency Department Summary [facility] Medical Records Department [address] [place] [address] Emergency Department Summary 11/07/24 MR#: [id number] Acct: [id number] Name: JUAN R POLLACK Rep #: [id number] : 1965 58 From: Pooja Ac DO PCP: Dr. Alejo Fletcher MD Status:REG ER Location: ED HPI History of Present Illness Chief Complaint: Flank Pain Informant: patient Narrative Narrative: Patient is a 58-year-old female significant history of kidney stones, follows with Dr. Rios and Dr. Storey. She underwent lithotripsy as well as basket removal with stents last year. She is presenting today with left flank pain and concern for recurrent kidney stone. Patient states that last night she had severe low back pain. Today she is having a sharp stabbing pain more in her pelvic/vaginal region. She has associated nausea and vomiting. She denies any blood in her vomit. She denies any change with urination states it is clear. She states this feels like prior kidney stones. Did not take any symptoms prior to arrival. Came in for further evaluation. No she is otherwise been feeling well. No report of any fever or chills, chest pain or viral symptoms. No recent change in bowel movements. Does have a history of diverticulosis but states t his does not feel like diverticulitis. [facility] Medical History Wears contact lenses Wears glasses Post-menopausal Cancer Alcohol use History of renal disease Kidney stones History of diverticulitis Former smoker History of stress test Cardiology follow-up encounter Kidney stones Home Medications ???Medication ???Instructions ???Recorded ???Last Taken ???Type Lactobacillus acidophilus 10 10,000 mmu cells PO DAILY 02/01/23 Unknown History billion cell capsule (Probiotic) clobetasol 0.05 % topical cream 1 applic topical PRN PRN Rash 02/01/23 Unknown History cyanocobalamin (vitamin B-12) 50 50 mcg PO DAILY 02/01/23 Unknown History mcg tablet (Vitamin B-12) estradiol 0.01% (0.1 mg/gram) 1 applic vaginal .TWICE WEEKLY 02/01/23 Unknown History vaginal cream multivitamin 1 tab PO DAILY 02/01/23 Unknown History potassium citrate 10 mEq (1,080 10 meq PO DAILY 02/01/23 Unknown History mg) tablet,extended release vibegron 75 mg tablet (Gemtesa) 75 mg PO DAILY 02/01/23 Unknown History cephalexin 500 mg capsule 500 mg PO Q12 post-operative 3 03/28/23 Unknown Rx days #6 CAPSULES oxycodone-acetaminoph en 5 mg-325 1 tab PO Q8H PRN pain 3 days #10 03/28/23 Unknown Rx mg tablet (Percocet) tabs phenazopyridine 200 mg tablet 200 mg PO TID PRN PRN Bladder 03/28/23 Unknown Rx (Pyridium) Spasms 7 days #30 tabs tamsulosin 0.4 mg capsule (Flomax) 0.4 mg PO DAILY #7 caps 11/07/24 Unknown Rx Allergy/AdvReac Type Severity Reaction Status Date / Time nitrofurantoin (From Allergy Hives Verified 11/07/24 10:33 Macrobid) Yeast Allergy Other Verified 11/07/24 10:33 Surgical History Hx of cystoscopy H/O bilateral oophorectomy S/P complete hysterectomy H/O lithotripsy Social History Smoking Status: Former smoker ROS ROS ED Constitutional Constitutional ED: Denies chills or fever(s) Cardiovascular Cardiovascular: Denies chest pain Respiratory/Chest Respiratory/Chest: Denies cough Gastrointestinal Gastrointestinal: Reports abdominal pain, nausea and vomiting; Denies constipation or diarrhea Genitourinary Genitourinary ED: Denies dysuria, hematuria or urinary frequency Musculoskeletal Musculoskeletal: Reports back pain; Denies arthralgias or myalgias Integumentary Denies rash Neurologic Neurologic: Denies headache(s) EXAM Physical Exam Const Vital Signs: 11/07/24 10:33 11/07/24 11:32 11/07/24 12:00 Temperature 98.4 F Temperature Source Oral Pulse Rate 70 89 76 Respiratory Rate 18 16 24 H Blood Pressure 114/64 134/78 H Blood Pressure Mean 80 96 Pulse Ox 98 99 99 Oxygen Delivery Method Room Air Room Air Room Air 11/07/24 13:00 11/07/24 13:52 Temperature 97.8 F Temperature Source Pulse Rate 68 78 Respiratory Rate 14 16 Blood Pressure 124/64 H 129/78 H Blood Pressure Mean 84 95 Pulse Ox 98 100 Oxygen Delivery Method Room Air Positive well nourished and well developed General Appearance ED: well developed and NAD HEENT Reports moist mucous membranes Eyes PERRL Neck supple and no JVD Chest Wall inspection of chest normal Resp normal respiratory effort and clear to auscultation bilaterally Cardio regular rate and regular rhythm GI normal to inspection, nondistended, normoactive bowel sounds and non-tender Back/Spine no CVA tende (more content not included)... Normal [facility] Eosinophil percentageOrdered By: Pooja Ac on 11-07-2024 Eosinophils/100 WBC (Bld) 0.3 % 0-5 [facility] Epithelial cells.squamous LM Ql (Urine sed)Ordered By: Pooja Ac on 11-07-2024 Epithelial cells.squamous LM.HPF (Urine sed) [#/Area] 0 /[HPF] 5-10 [facility] Erythrocyte distribution wid th ratioOrdered By: Pooja Ac on 11-07-2024 Erythrocyte distribution width (RBC) [Ratio] 12.9 % 11.6-14.6 [facility] Erythrocyte distribution wid th standard deviationOrdered By: Pooja Ac on 11-07-2024 Erythrocyte distribution width (RBC) [Entitic vol] 43.8 fL 35.1-43.9 [facility] Estimated glomerular filtrat ion rate (GFR) AmericanOrdered By: Pooja Ac on 11-07-2024 Estimated GFR (MDRD) Amer 54 mL/min Low >60 [facility] Comment on above: GFR Calc Estimation of creatinine clary aranceOrdered By: Pooja Ac on 11-07-2024 Estimated Creatinine Clearance Calc 36.40 ml/min [facility] Glomerular filtration rate ( GFR) estimationOrdered By: Pooja Ac on 11-07-2024 Estimated GFR (MDRD) Non-Af Amer 44 mL/min Low >60 [facility] Comment on above: Non- GFR Calc Glucose Ql (U)Ordered By: Alexander Ac on 11-07-2024 Urine Glucose (UA) Normal mg/dl Normal [facility] Glucose measurementOrdered B y: Pooja Ac on 11-07-2024 Glucose [Mass/Vol] 138 mg/dL High 74-106 [facility] Comment on above: Fasting Glucose resu lt greater than or equal to 126 mg/dL suggests DIABETES MELLITUS per A.D.A. criteria. Hematocrit Auto (Bld) [Volum e fraction]Ordered By: Pooja Ac on 11-07-2024 Hematocrit (Bld) [Volume fraction] 41.3 % 37-47 [facility] Hemoglobin measurementOrdere d By: Pooja Ac on 11-07-2024 Hemoglobin (Bld) [Mass/Vol] 13.4 g/dL 12.0-15.0 [facility] Immature granulocytes/100 WB C Auto (Bld)Ordered By: Pooja Ac on 11-07-2024 Immature granulocytes/100 WBC (Bld) 0.400 % 0.0-0.9 [facility] Comment on above: IG% - Immature Granu locytes (promyelocytes, myelocytes and metamyelocytes) > 1% indicates that a LEFT SHIFT is Present. Ketones Test strip Ql (U)Ord ered By: Pooja Ac on 11-07-2024 Ketones Ql (U) Negative Negative [facility] Lymphocytes Auto (Unsp spec) [#/Vol]Ordered By: Pooja Ac on 11-07-2024 Lymphocytes (Bld) [#/Vol] 1.46 10*3/uL 0.83-4.51 [facility] Lymphocytes/100 WBC Auto (Un sp spec)Ordered By: Pooja Ac on 11-07-2024 Lymphocytes/100 WBC (Bld) 12.8 % Low 19-41 [facility] MCV (mean corpuscular volume ) determinationOrdered By: Pooja Ac on 11-07-2024 MCV (RBC) [Entitic vol] 93.0 fL 81-99 [facility] Mean corpuscular hemoglobin (MCH) determinationOrdered By: Pooja Ac on 11-07-2024 MCH (RBC) [Entitic mass] 30.2 pg 27.0-32.0 [facility] Mean corpuscular hemoglobin concentration (MCHC) determinationOrdered By: Pooja Ac on 11-07-2024 MCHC (RBC) [Mass/Vol] 32.4 g/dL 32-36 [facility] Mean platelet volume determi nationOrdered By: Pooja Ac on 11-07-2024 Platelet mean volume (Bld) [Entitic vol] 10.4 fL 6.2-12.0 [facility] Microscopic analysis of urin e for red blood cells (RBC)Ordered By: Pooja Ac on 11-07-2024 Urine RBC 0 SEEN /hpf 0-5 [facility] Monocyte percentageOrdered B y: Pooja cA on 11-07-2024 Monocytes/100 WBC (Bld) 5.0 % 0-10 [facility] Mucus LM Ql (Urine sed)Order ed By: Pooja Ac on 11-07-2024 Mucus Ql (Urine sed) 0 SEEN /hpf [facility] Neutrophil percentageOrdered By: Pooja Ac on 11-07-2024 Neutrophils/100 WBC (Bld) 81.2 % High 47-70 [facility] Nitrite Test strip Ql (U)Ord ered By: Pooja Ac on 11-07-2024 Nitrite Ql (U) Negative Negative [facility] Nucleated red blood cell per centageOrdered By: Pooja Ac on 11-07-2024 Nucleated RBC/100 WBC (Bld) [Ratio] 0 % 0-5 [facility] Platelet countOrdered By: Alexander Ac on 11-07-2024 Platelets (Bld) [#/Vol] 260 10*3/uL 150-450 [facility] Potassium measurementOrdered By: Pooja Ac on 11-07-2024 Potassium [Moles/Vol] 4.0 mmol/L 3.5-5.1 [facility] Protein Test strip Ql (U)Ord ered By: Pooja Ac on 11-07-2024 Protein Ql (U) 15 mg/dl High Negative [facility] RBC Auto (Bld) [#/Vol]Ordere d By: Pooja Ac on 11-07-2024 RBC (Bld) [#/Vol] 4.44 10*6/uL 4.2-5.4 [facility] Serum anion gap measurementO rdered By: Pooja Ac on 11-07-2024 Anion gap [Moles/Vol] 4 mmol/L Low 5-15 [facility] Serum or plasma calcium michael urement (mass/volume)Ordered By: Pooja Ac on 11-07-2024 Calcium [Mass/Vol] 10.0 mg/dL 8.5-10.1 [facility] Serum or plasma creatinine m easurement (mass/volume)Ordered By: Pooja Ac on 11-07-2024 Creatinine [Mass/Vol] 1.30 mg/dL High 0.55-1.02 [facility] Comment on above: The validity of the calculated GFR & GFRAA in patients over 70 years has not been determined. Clinical correlation is essential. Serum or plasma urea nitroge n measurement (mass/volume)Ordered By: Pooja Ac on 11-07-2024 Urea nitrogen [Mass/Vol] 30 mg/dL High 7-18 [facility] Sodium levelOrdered By: Guillermo Ac on 11-07-2024 Sodium [Moles/Vol] 140 mmol/L 136-145 [facility] Urinalysis, Completeon 11-07 BACTERIA 1+ /hpf Normal None Seen [facility] Comment on above: Order Comment: COLLE CTOR TO SPECIFY Performed By: #### L 400.0001 #### [facility] Laboratory [address] [place], [address] EPI,SQUAMOUS 0-5 SEEN Normal 5-10 [facility] Comment on above: Order Comment: JAYLA CTOR TO SPECIFY Performed By: #### L 400.0001 #### [facility] Laboratory [address] [place], [address] WBC 0-5 SEEN Normal 0-5 [facility] Comment on above: Order Comment: JAYLA CTOR TO SPECIFY Performed By: #### L 400.0001 #### [facility] Laboratory [address] [place], [address] Mucus Ql (Urine sed) 0 SEEN Normal [facility] Comment on above: Order Comment: JAYLA CTOR TO SPECIFY Performed By: #### L 400.0001 #### [facility] Laboratory [address] [place], [address] RBC 0 SEEN Normal 0-5 [facility] Comment on above: Order Comment: JAYLA CTOR TO SPECIFY Performed By: #### L 400.0001 #### [facility] Laboratory [address] [place], [address] Urine blood detectionOrdered By: Pooja Ac on 11-07-2024 Urine Occult Blood Negative Negative [facility] Urine clarityOrdered By: Zenaida Ac on 11-07-2024 Clarity (U) Clear Clear [facility] Urine color determinationOrd ered By: Pooja Ac on 11-07-2024 Color (U) Straw Yellow [facility] Urine leukocyte esterase det ection by dipstickOrdered By: Pooja Ac on 11-07-2024 Leukocyte esterase Test strip Ql (U) Negative Negative [facility] Urine pHOrdered By: Pooja hui on 11-07-2024 pH (U) 6.0 [pH] 5.0 - 8.0 [facility] Urine sediment bacteria coun t by microscopy (number/high power field)Ordered By: Pooja Ac on 11-07-2024 Bacteria LM.HPF (Urine sed) [#/Area] 1 /[HPF] None Seen [facility] Urine specific gravity measu rementOrdered By: Poojariver Ac on 11-07-2024 Specific gravity (U) [Rel density] 1.015 1.002-1.030 [facility] Urobilinogen Ql (U)Ordered B y: Pooja Ac on 11-07-2024 Urine Urobilinogen Normal mg/dl Normal [facility] White blood cell (WBC) count Ordered By: Poojariver Ac on 11-07-2024 WBC (Bld) [#/Vol] 11.4 10*3/uL High 4.4-11.0 [facility] White blood cell countOrdere d By: Poojariver Ac on 11-07-2024 Urine WBC 0-5 SEEN /hpf 0-5 [facility] CNOVon 08-07-2024 CNOV Office Visit (GENSWS ) JUAN R GARCIA ([id number]) 1965 F Date Time Provider Department 08/07/24 8:00 AM TANA PETERSON During your visit today, we recorded the following information about you: Tana Peterson APRN.CUSTOMER DATA TECHNICIAN 08/07/2024 8:18 AM Signed FOLLOW UP VISIT - ENDOSCOPY Juan R Pollack 1965 [id number] REFERRING PHYSICIAN: Marcial Davis III [address] [facility] [address] Juan R Pollack is a patient I am following for diarrhea AND + fecal WBC. Dr. Davis performed lower endoscopy on 07/30/24. The patient was found to have Impression: - Diverticulosis in the sigmoid colon. - Non-bleeding internal hemorrhoids. - The entire examined colon is normal. Biopsied. - The examined portion of the ileum was normal. Biopsied. Pathology demonstrated: A. Terminal ileum, biopsy: No pathologic change B. Colon, random biopsy: Collagenous colitis See comment Comment: Trichrome stain with manage control was used in the evaluation of this case and shows thickened basal plate. The patient notes no complaints since the procedure. Cecia refers that she is no longer having diarrhea, stools a little softer and smaller than she would like, but overall have improved. VITALS: There were no vitals taken for this visit. General: patient is alert, cooperative, pleasant and in no acute distress On examination, the abdomen is benign. Assessment ASSESSMENT/PLAN: 1. Collagenous colitis - ICD9: 558.9, ICD10: K52.831 - Increase fiber AND try a probiotic to help bulk up stools. - Avoid smoking AND NSAID medications, PPIs - Use pepto, immodium The operative findings and pathology report were reviewed with the patient, and the patient has had the opportunity to ask questions and have questions answered. If the patient notes any problems or changes in bowel function, the patient should contact me immediately. Otherwise I recommend follow up endoscopy in 10 years. HM updated and recall letter generated. Discussed treatment plan and patient voices understanding. Patient's questions answered appropriately. Medications and potential side effects were discussed and patient voices understanding. Return to the office as scheduled or as needed for worsening/no improvement. Tana Peterson APRN.CUSTOMER DATA TECHNICIAN Referring Provider: MARCIAL DAVIS [[id number]] Allergies As of Date: 08/07/2024 Noted Allergy Reaction NITROFURANTOIN 10/16/2016 14 - Other: See Comments Comments: Chest pain, sob, and body aches YEAST, DRIED 11/27/2005 16 - Unknown Date Reviewed: 08/07/2024 Reviewed by: Tana Peterson APRN.CUSTOMER DATA TECHNICIAN - Fully Assessed Reason for Visit: Follow Up [171] Cmt: colonoscopy Primary Visit Diagnosis:Collagenous colitis [K52.831] Prescriptions as of 08/07/2024 - lansoprazole (PREVACID) 30 mg capsule Take 1 capsule by mouth two times a day for 14 days. 1/2 hr before meal. - estradiol (ESTRACE) 0.01 % (0.1 mg/gram) vaginal cream Use 1 g vaginally two times a week. - clobetasol (TEMOVATE) 0.05 % ointment apply a pea-sized amount to vulva qhs. May use 1-2 times daily for 7-10 days prn flares. - MULTIVITAMIN ORAL Take by mouth. Meds Comments as of 10/27/2018: OTC Probiotic Problem List As Of Date 08/07/2024 Noted Resolved Calculus of kidney [N20.0] 11/27/2005 Personal history of tuberculosis [Z86.11] 12/29/2005 ABNORMAL FINDINGS NEC [R68.89] 12/29/2005 01/14/2008 Tobacco Use Disorder [F17.200] 12/29/2005 04/01/2010 CHEST PAIN UNSPECIFIED [R07.9] 12/29/2005 01/14/2008 OTITIS EXTERNA [H60.399] 02/02/2006 01/14/2008 PAIN LEG [M79.609] 11/18/2006 01/14/2008 Symptomatic menopausal or female climacteric st*01/14/2008 09/20/2015 Diarrhea [R19.7] 03/20/2008 Internal hemorrhoids without mention of complic*04/27/2008 Irritable bowel syndrome [K58.9] 08/18/2008 COPD (Chronic Obstructive Pulmonary Disease) [J*04/01/2010 Vertigo [R42] 04/01/2010 Neck pain [M54.2] 04/01/2010 Decreased libido [R68.82] 10/19/2013 05/23/2020 Hypotestosteronism [E34.9] 10/19/2013 Encounter for screening for malignant neoplasm *10/27/2015 10/27/2015 Encounter for gynecological examination without*01/18/2016 Smoker [F17.200] 01/18/2016 12/21/2016 Lichen sclerosus et atrophicus [L90.0] Screen for colon cancer [Z12.11] 01/18/2016 Stage 3a chronic kidney disease (HCC) [N18.31] 10/29/2017 Diverticulosis of intestine without bleeding [K*06/24/2018 History of cervical cancer [Z85.41] 11/11/1998 05/23/2020 Ex-smoker [Z87.891] 01/18/2016 Lung nodule [R91.1] 11/08/2021 Elevated hemoglobin A1c [R73.09] 02/06/2022 Neoplasm of uncertain behavior of skin of chest*01/15/2024 AK (actinic keratosis) [L57.0] 01/27/2024 Lung nodules [R91.8] 01/28/2024 Encounter Status:Closed by TANA PETERSON on 08/07/[address] [facility] [id number] 07-30-2024 [id number] HNO ID: [id number] Author: SHRUTI ELLER RN Service: ? Author Type: Registered Nurse Type: [id number] Filed: 07/30/2024 08:46 Note Text: The patient received a copy of Colonoscopy discharge instructions that contain information for how to contact the physician who performed the procedure and when to seek medical care.Shruti Eller RN Normal [facility] Colonoscopyon 07-30-2024 Colonoscopy Nicole [facility] Gastrointestinal Endoscopy Patient Name: Juan R Pollack Procedure Date: 07/30/2024 7:47 AM Date of : 1965 Admit Type: Outpatient Age: 58 Gender: Female Note Status: Finalized Procedure: Colonoscopy Indications: Clinically significant diarrhea of unexplained origin Providers: Marcial Davis MD Patient Profile: This is a 58 year old female. Refer to note in patient chart for documentation of history and physical. Last Colonoscopy: October 2015. Referring Physician: Tana Peterson (Referring MD) Medicines: Fentanyl 100 micrograms IV, Midazolam 5 mg IV, Diphenhydramine 50 mg IV Complications: No immediate complications. Estimated blood loss: Minimal. Requesting Provider: Procedure: Pre-Anesthesia Assessment: - Prior to the procedure, a History and Physical was performed, and patient medications and allergies were reviewed. The patient's tolerance of previous anesthesia was also reviewed. The risks and benefits of the procedure and the sedation options and risks were discussed with the patient. All questions were answered, and informed consent was obtained. Prior Anticoagulants: The patient has taken no anticoagulant or antiplatelet agents. ASA Grade Assessment: II - A patient with mild systemic disease. After reviewing the risks and benefits, the patient was deemed in satisfactory condition to undergo the procedure. After I obtained informed consent, the scope was passed under direct vision. Throughout the procedure, the patient's blood pressure, pulse, and oxygen saturations were monitored continuously. The Colonoscope was introduced through the anus and advanced to 3 cm into the ileum. The colonoscopy was performed without difficulty. The patient tolerated the procedure well. The quality of the bowel preparation was good. The terminal ileum, ileocecal valve, appendiceal orifice, and rectum were photographed. Moderate Sedation: The administration of moderate sedation was initiated at 08:04 AM. Moderate (conscious) sedation was personally administered by the endoscopist. The following parameters were monitored: oxygen saturation, heart rate, blood pressure, respiratory rate, EKG, adequacy of pulmonary ventilation, and response to care. Total physician intraservice time was 21 minutes. Findings: The perianal and digital rectal examinations were normal. A few small-mouthed diverticula were found in the sigmoid colon. Non-bleeding internal hemorrhoids were found during retroflexion. The hemorrhoids were mild and small. The colon (entire examined portion) appeared normal. Biopsies for histology were taken with a cold forceps for evaluation of microscopic colitis. The terminal ileum appeared normal. Biopsies were taken with a cold forceps for histology. The exam was otherwise without abnormality. Impression: - Diverticulosis in the sigmoid colon. - Non-bleeding internal hemorrhoids. - The entire examined colon is normal. Biopsied. - The examined portion of the ileum was normal. Biopsied. - The examination was otherwise normal. Recommendation: - Patient has a contact number available for emergencies. The signs and symptoms of potential delayed complications were discussed with the patient. Return to normal activities tomorrow. Written discharge instructions were provided to the patient. - Resume previous diet. - Continue present medications. - Await pathology results. - Repeat colonoscopy in 10 years for screening purposes. - Return to nurse practitioner at appointment to be scheduled. Procedure Code(s): --- Professional --- 54541, Colonoscopy, flexible; with biopsy, single or multiple G0500, Moderate sedation services provided by the same physician or other qualified health care aide performing a gastrointestinal endoscopic service that sedation supports, requiring the presence of an independent trained observer to assist in the monitoring of the patient's level of consciousness and physiological status; initial 15 minutes of intra-service time; patient age 5 years or older (additional time may be reported with 18464, as appropriate) Diagnosis Code(s): --- Professional --- K64.8, Other hemorrhoids R19.7, Diarrhea, unspecified K57.30, Diverticulosis of large intestine without perforation or abscess without bleeding CPT copyright 2021 [employer]. All rights reserved. The codes documented in this report are preliminary and upon apartment groundskeeper review may be revised to meet current compliance requirements. Attending Participation: I personally performed the entire procedure. Scope In: 8:08:38 AM Scope Out: 8:25:02 AM MD Marcial Lira MD 07/30/2024 8:29:52 AM This report has been signed electronically by Marcial Davis MD Number of Addenda: 0 Note Initiated On: 07/30/2024 7:47 AM Estimated Blood Loss: Estimated (more content not included)... Normal [facility] Flexible sigmoidoscopy study on 07-30-2024 [facility] Gastrointestinal Endoscopy Patient Name: Juan R Pollack Procedure Date: 07/30/2024 7:47 AM Date of : 1965 Admit Type: Outpatient Age: 58 Gender: Female Note Status: Finalized Procedure: Colonoscopy Indications: Clinically significant diarrhea of unexplained origin Providers: Marcial Davis MD Patient Profile: This is a 58 year old female. Refer to note in patient chart for documentation of history and physical. Last Colonoscopy: October 2015. Referring Physician: Tana Peterson (Referring MD) Medicines: Fentanyl 100 micrograms IV, Midazolam 5 mg IV, Diphenhydramine 50 mg IV Complications: No immediate complications. Estimated blood loss: Minimal. Requesting Provider: Procedure: Pre-Anesthesia Assessment: - Prior to the procedure, a History and Physical was performed, and patient medications and allergies were reviewed. The patient's tolerance of previous anesthesia was also reviewed. The risks and benefits of the procedure and the sedation options and risks were discussed with the patient. All questions were answered, and informed consent was obtained. Prior Anticoagulants: The patient has taken no anticoagulant or antiplatelet agents. ASA Grade Assessment: II - A patient with mild systemic disease. After reviewing the risks and benefits, the patient was deemed in satisfactory condition to undergo the procedure. After I obtained informed consent, the scope was passed under direct vision. Throughout the procedure, the patient's blood pressure, pulse, and oxygen saturations were monitored continuously. The Colonoscope was introduced through the anus and advanced to 3 cm into the ileum. The colonoscopy was performed without difficulty. The patient tolerated the procedure well. The quality of the bowel preparation was good. The terminal ileum, ileocecal valve, appendiceal orifice, and rectum were photographed. Moderate Sedation: The administration of moderate sedation was initiated at 08:04 AM. Moderate (conscious) sedation was personally administered by the endoscopist. The following parameters were monitored: oxygen saturation, heart rate, blood pressure, respiratory rate, EKG, adequacy of pulmonary ventilation, and response to care. Total physician intraservice time was 21 minutes. Findings: The perianal and digital rectal examinations were normal. A few small-mouthed diverticula were found in the sigmoid colon. Non-bleeding internal hemorrhoids were found during retroflexion. The hemorrhoids were mild and small. The colon (entire examined portion) appeared normal. Biopsies for histology were taken with a cold forceps for evaluation of microscopic colitis. The terminal ileum appeared normal. Biopsies were taken with a cold forceps for histology. The exam was otherwise without abnormality. Impression: - Diverticulosis in the sigmoid colon. - Non-bleeding internal hemorrhoids. - The entire examined colon is normal. Biopsied. - The examined portion of the ileum was normal. Biopsied. - The examination was otherwise normal. Recommendation: - Patient has a contact number available for emergencies. The signs and symptoms of potential delayed complications were discussed with the patient. Return to normal activities tomorrow. Written discharge instructions were provided to the patient. - Resume previous diet. - Continue present medications. - Await pathology results. - Repeat colonoscopy in 10 years for screening purposes. - Return to nurse practitioner at appointment to be scheduled. Procedure Code(s): --- Professional --- 53275, Colonoscopy, flexible; with biopsy, single or multiple (more content not included)... PROVATION [facility] Radiology Study observation (narrative) [facility] HISTORY PHYSICALon HISTORY PHYSICAL HNO ID: [id number] Author: MARCIAL DAVIS MD Service: General Surgery Author Type: Physician Type: H&P Filed: 07/30/2024 08:00 Note Text: HISTORY AND PHYSICAL Juan R Pollack : 1965 REFERRING PHYSICIAN: No referring provider defined for this encounter. CHIEF COMPLAINT: Patient presents with: Consult: Diarrhea, fecal WBC positive HPI: Cecia is a 58 year old female referred for endoscopy. Cecia notes diarrhea and positive fecal WBCs. Cecia notes upper abdominal pain. -Serum H. Pylori is positive. Cecia notes diarrhea x 4 mos- watery- stool test negative except WBCs Juan R denies constipation. Cecia notes a change in bowel habits. Cecia denies melena. Cecia denies bright red blood per rectum. Cecia denies hemorrhoids. Cecia denies heartburn. Cecia denies dysphagia. Cecia denies a history of ulcers/ peptic ulcer disease. +currently has epigastric pain- on h. Pylori tx Denies family history of colon issues. Juan R has undergone prior endoscopy. Last colonoscopy was [address] Pace at [facility]. Sedation received:Fentanyl 100 micrograms IV, Midazolam 4 mg IV Impression: - Diverticulosis in the sigmoid colon and in the descending colon. - Two 5 mm polyps at 20 cm proximal to the anus. Resected and retrieved. Pathology: CONVERTED FINAL DIAGNOSIS Colon, 20 cm, polypectomy - Fragments of hyperplastic polyp. VANI/ariana 10/28/2015 CURRENT MEDICATIONS Current Outpatient Medications Medication Sig amoxicillin (AMOXIL) 500 mg capsule Take 2 capsules by mouth two times a day for 14 days. clarithromycin XL (BIAXIN XL) 500 mg 24 hr tablet Take 1 tablet by mouth two times a day for 14 days. lansoprazole (PREVACID) 30 mg capsule Take 1 capsule by mouth two times a day for 14 days. 1/2 hr before meal. estradiol (ESTRACE) 0.01 % (0.1 mg/gram) vaginal cream Use 1 g vaginally two times a week. clobetasol (TEMOVATE) 0.05 % ointment apply a pea-sized amount to vulva qhs. May use 1-2 times daily for 7-10 days prn flares. MULTIVITAMIN ORAL Take by mouth. peg 3350-Electrolytes (GOLYTELY) 236-22.74-6.74 -5.86 gram suspension Take 4,000 mL by mouth one time only for 1 dose. Refer to printed prep instructions from your provider. No current facility-administered medications for this visit. ALLERGIES: Nitrofurantoin and Yeast, Dried PAST MEDICAL HISTORY PAST MEDICAL HISTORY Diagnosis Date Adjustment disorder with depressed mood 01/14/2008 AK (actinic keratosis) 01/27/202401/2024: left upper chest cryo, Calculus of kidney CKD (chronic kidney disease) stage 3, GFR 30-59 ml/min ([facility]) 10/29/[address] Storey COPD (Chronic Obstructive Pulmonary Disease) 04/01/2010 Corpus luteum cyst or hematoma Decreased libido 10/19/2013 Diverticulosis of intestine without bleeding 06/24/2018 Elevated hemoglobin A1c 02/06/2022 Ex-smoker 01/18/2016 Quit 2011. Smoked for about 20 yrs up to 1 PPD History of cervical cancer 1998 Hypotestosteronism 10/19/2013 Internal hemorrhoids without mention of complication 04/27/2008 Irritable bowel syndrome 08/18/2008 Lichen sclerosus et atrophicus 2014 biopsy done Lung nodules 01/28/2024 CT 01/2024 stable compared to 2014. No more f/u needed. Neck pain 04/01/2010 Personal history of tuberculosis 12/29/2005 Was treated. Stage 3a chronic kidney disease ([facility]) 10/29/[address] Storey Vertigo 04/01/2010 rare PAST SURGICAL HISTORY PAST SURGICAL HISTORY Procedure Laterality Date COLONOSCOPY FLX DX W/COLLJ SPEC WHEN PFRMD 10/27/2015 Colonoscopy, repeat 10 yrs COLONOSCOPY W/BIOPSY SINGLE/MULTIPLE 04/27/2008 LITHOTRIPSY XTRCORP SHOCK WAVE 11/11/1995 Lithotripsy LITHOTRIPSY XTRCORP SHOCK WAVE Right 02/07/[address] 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 FAMILY HISTORY FAMILY HISTORY Problem Relation Age of Onset Cervical Cancer Mother Diabetes Mother Hypertension Father Stroke Father Aortic and brain aneurysm 2014 Heart Father other (nephrolithiasis) Father also in Maternal aunt Breast Cancer Maternal Grandmother Coronary Artery Disease Paternal Uncle SOCIAL HISTORY Social History Tobacco Use Smoking status: Former Current packs/day: 0.00 Average packs/day: 0.5 packs/day for 15.0 years (7.5 ttl pk-yrs) Types: Cigarettes Start date: 2000 Quit date: 2016 Years since quittin.7 Smokeless tobacco: Never Vaping Use Vaping status: Never Used Substance Use Topics Alcohol use: Yes Comment: occasional- 1-2 times per month Drug use: No REVIEW OF SYMPTOMS: REVIEW OF SYSTEMS: General: The patient denies fatigue, + weight loss, + weight gain, denies feeling hot, and feelings of cold. Cardiovascular: The patient denies chest pain, denies heart disease, denies high blood pressure, denies high cholesterol, and denies poor circulation. Respiratory: The patient + tuberculosis, denies pneumonia, denies frequent coug (more content not included)... Normal [facility] NURSING PROGon 07-30-2024 NURSING PROG HNO ID: [id number] Author: SHRUTI ELLER RN Service: ? Author Type: Registered Nurse Type: Nursing Progress Note Filed: 07/30/2024 09:48 Note Text: Arrived in phase II via cart. Left lateral position. Sedated, but responds to verbal stimuli. Color normal; skin warm and dry. Respirations wnl and unlabored. Abdomen soft and with + bowel sounds in quads X 4. Patient resting comfortably. Family at bedside. Dr. Parson at bedside to review procedure and recommendations. Shruti Eller RN Normal [facility] Trichrome (control)on 2023 Trichrome (control) - -------- Patient Age/Sex Location Account Attending Physician -------- JUAN R POLLACK 58/F [facility] [id number] Dr. Marcial Davis MD -------- Specimen: [id number] Received: 07/30/24 Status: MARCIA Ordoñez Num: [id number] Spec Type: COLON BX Subm Dr: Dr. Marcial Davis MD HEADER OPERATION: Colonoscopy PRE-OP DIAGNOSIS: Diarrhea TISSUE SUBMITTED: A- Terminal ileum biopsy, B- Random colon biopsy -------- MICROSCOPIC DIAGNOSIS A. Terminal ileum, biopsy: No pathologic change. B. Colon, random biopsy: Collagenous colitis. See comment. / 08/03/2024 COMMENT Trichrome stain with matched control was used in the evaluation of this case and shows a thickened basal plate. MICROSCOPIC DESCRIPTION Slides are reviewed. GROSS DESCRIPTION A. Received in fixative is one container labeled with the patient's name and designated Terminal ileum biopsy. The specimen consists of one irregular fragment of light ellsworth soft tissue that measures 0.6 x 0.3 x 0.1 cm. The specimen is totally submitted in one cassette. B. Received in fixative is one container labeled with the patient's name and designated Random colon biopsy. The specimen consists of multiple irregular fragments of light ellsworth soft tissue that in aggregate measure 2.5 x 0.5 x 0.1 cm. The specimen is totally submitted in one cassette. 07/31/2024 TC:3 CPT:91053p6,31888 -------- Patient Age/Sex Location Account Attending Physician -------- JUAN R POLLACK 58/ [facility] [id number] Dr. Marcial Davis MD -------- Signed (signature on file) Dr. Jose Eduardo Foss DO 08/03/24 1306 -------- Normal [facility] Comment on above: Performed By: #### L 100.0100, L500.2500 #### [facility] Laboratory [address] [place], [place] [address], [place], [address] CNAllen 07-24-2024 KIERRA Office Visit (GENSWS ) JUAN R GARCIA ([id number]) 1965 F Date Time Provider Department 07/24/24 8:30 AM TANA PETERSON During your visit today, we recorded the following information about you: Temperature Pulse Blood pressure Weight 97.5 degrees 71/minute 143/83 54 kg Height 1.575 m Tana Peterson APRN.CNP 07/24/2024 8:57 AM Signed HISTORY AND PHYSICAL Juan R Pollack : 1965 REFERRING PHYSICIAN: No referring provider defined for this encounter. CHIEF COMPLAINT: Patient presents with: Consult: Diarrhea, fecal WBC positive HPI: Juan R is a 58 year old female referred for endoscopy. Cecia notes diarrhea and positive fecal WBCs. Cecia notes upper abdominal pain. -Serum H. Pylori is positive. Cecia notes diarrhea x 4 mos- watery- stool test negative except WBCs Cecia denies constipation. Cecia notes a change in bowel habits. Cecia denies melena. Cecia denies bright red blood per rectum. Cecia denies hemorrhoids. Cecia denies heartburn. Cecia denies dysphagia. Cecia denies a history of ulcers/ peptic ulcer disease. +currently has epigastric pain- on h. Pylori tx Denies family history of colon issues. Juan R has undergone prior endoscopy. Last colonoscopy was [address] Pace at [facility]. Sedation received:Fentanyl 100 micrograms IV, Midazolam 4 mg IV Impression: - Diverticulosis in the sigmoid colon and in the descending colon. - Two 5 mm polyps at 20 cm proximal to the anus. Resected and retrieved. Pathology: CONVERTED FINAL DIAGNOSIS Colon, 20 cm, polypectomy - Fragments of hyperplastic polyp. VANI/ariana 10/28/2015 Current Outpatient Medications Medication Sig amoxicillin (AMOXIL) 500 mg capsule Take 2 capsules by mouth two times a day for 14 days. clarithromycin XL (BIAXIN XL) 500 mg 24 hr tablet Take 1 tablet by mouth two times a day for 14 days. lansoprazole (PREVACID) 30 mg capsule Take 1 capsule by mouth two times a day for 14 days. 1/2 hr before meal. estradiol (ESTRACE) 0.01 % (0.1 mg/gram) vaginal cream Use 1 g vaginally two times a week. clobetasol (TEMOVATE) 0.05 % ointment apply a pea-sized amount to vulva qhs. May use 1-2 times daily for 7-10 days prn flares. MULTIVITAMIN ORAL Take by mouth. peg 3350-Electrolytes (GOLYTELY) 236-22.74-6.74 -5.86 gram suspension Take 4,000 mL by mouth one time only for 1 dose. Refer to printed prep instructions from your provider. No current facility-administered medications for this visit. ALLERGIES: Nitrofurantoin and Yeast, Dried PAST MEDICAL HISTORY Diagnosis Date Adjustment disorder with depressed mood 01/14/2008 AK (actinic keratosis) 01/27/202401/2024: left upper chest cryo, Calculus of kidney CKD (chronic kidney disease) stage 3, GFR 30-59 ml/min ([facility]) 10/29/[address] Storey COPD (Chronic Obstructive Pulmonary Disease) 04/01/2010 Corpus luteum cyst or hematoma Decreased libido 10/19/2013 Diverticulosis of intestine without bleeding 06/24/2018 Elevated hemoglobin A1c 02/06/2022 Ex-smoker 01/18/2016 Quit 2011. Smoked for about 20 yrs up to 1 PPD History of cervical cancer 1998 Hypotestosteronism 10/19/2013 Internal hemorrhoids without mention of complication 04/27/2008 Irritable bowel syndrome 08/18/2008 Lichen sclerosus et atrophicus 2015 biopsy done Lung nodules 01/28/2024 CT 01/2024 stable compared to 2014. No more f/u needed. Neck pain 04/01/2010 Personal history of tuberculosis 12/29/2005 Was treated. Stage 3a chronic kidney disease (HCC) 10/29/[address] Storey Vertigo 04/01/2010 rare PAST SURGICAL HISTORY Procedure Laterality Date COLONOSCOPY FLX DX W/COLLJ SPEC WHEN PFRMD 10/27/2015 Colonoscopy, repeat 10 yrs COLONOSCOPY W/BIOPSY SINGLE/MULTIPLE 04/27/2008 LITHOTRIPSY XTRCORP SHOCK WAVE 11/11/1995 Lithotripsy LITHOTRIPSY XTRCORP SHOCK WAVE Right 02/07/[address] 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 FAMILY HISTORY Problem Relation Age of Onset Cervical Cancer Mother Diabetes Mother Hypertension Father Stroke Father Aortic and brain aneurysm 2014 Heart Father other (nephrolithiasis) Father also in Maternal aunt Breast Cancer Maternal Grandmother Coronary Artery Disease Paternal Uncle Social History Tobacco Use Smoking status: Former Current packs/day: 0.00 Average packs/day: 0.5 packs/day for 15.0 years (7.5 ttl pk-yrs) Types: Cigarettes Start date: 2000 Quit date: 2016 Years since quittin.7 Smokeless tobacco: Never Vaping Use Vaping status: Never Used Substance Use Topics Alcohol use: Yes Comment: occasional- 1-2 times per month Drug use: No REVIEW OF SYMPTOMS: REVIEW OF SYSTEMS: General: The patient denies fatigue, + weight loss, + weight gain, denies feeling hot, and feelings of cold. Cardiovascular: The patient denie (more content not included)... Normal [facility] JUAN R GARCIA ([id number]) 1965 F Date Time Provider Department 07/08/24 [facility] During your visit today, we recorded the following information about you: Opal Reynoso LPN 07/08/2024 8:22 AM Signed Patients called, states that he saw that one of her stool tests was positive but he is not sure what that indicates. Patient is leaving for vacation today and is asking what would be recommended for this. States that she has had diarrhea for 4 months and they are trying to find the cause. Please advise. Richie Daniel MD 07/08/2024 12:28 PM Signed Fecal lactoferrin is indicated of the possible presence of white blood cells and inflammation in the colon. H. Pylori antibody may indicated previous or current stomach infection and gastritis. Recommend: Continue self measures to control chronic symptoms noted at OV. Request PCP for gastroenterology referral. Ayan Michale MA 07/08/2024 12:57 PM Signed Left message to call office. 07/08/2024 12:57 PM Opal Reynoso LPN 07/08/2024 1:05 PM Signed states that everything she has tried at home does not work. When she eats she has diarrhea within 15 minutes. states that she will call in Saturday to see what PCP is recommending. Asking for consult to gastro be placed. Alejo Fletcher MD 07/13/2024 3:58 PM Addendum Let patient know that the only abnormal stool study shows inflammation in the colon and will need a colonoscopy. Consult to Gen Surgery placed. All the studies for bacteria and parasites in her colon were neg. Her H. Pylori test foe a bacteria in her stomach was positive and this can be source of the upper abdominal pain. Needs treated with two different antibiotics for two weeks and a acid reducing medication. Where does she want these scripts sent. Her mammogram was ok. Mica Strange RN 07/14/2024 8:41 AM Signed Pt called and is notified of providers results and instructions. Pt would like medication sent to [facility] in [place]. Pt voices understanding. Transferred to scheduled to set up appt with General Surgery. BLAIRE Smith Jeffrey A, MD 07/14/2024 12:53 PM Signed The following approved medication requests have been transmitted electronically. Requested Prescriptions Signed Prescriptions Disp Refills amoxicillin (AMOXIL) 500 mg capsule 56 capsule 0 Sig: Take 2 capsules by mouth two times a day for 14 days. Authorizing Provider: ALEJO FLETCHER clarithromycin XL (BIAXIN XL) 500 mg 24 hr tablet 28 tablet 0 Sig: Take 1 tablet by mouth two times a day for 14 days. Authorizing Provider: ALEJO FLETCHER lansoprazole (PREVACID) 30 mg capsule 28 capsule 0 Sig: Take 1 capsule by mouth two times a day for 14 days. 1/2 hr before meal. Authorizing Provider: ALEJO FLETCHER MD Allergies As of Date: 07/08/2024 Noted Allergy Reaction NITROFURANTOIN 10/16/2016 14 - Other: See Comments Comments: Chest pain, sob, and body aches YEAST, DRIED 11/27/2005 16 - Unknown Date Reviewed: 07/01/2024 Reviewed by: Alejo Fletcher MD - Fully Assessed Reason for Visit: Question [1327] Results [95] Primary Visit Diagnosis:Diarrhea, unspecified type [R19.7] Order(s):amoxicillin (AMOXIL) 500 mg capsuleTake 2 capsules by mouth two times a day for 14 days.Disp: 56 capsuleRfl: 0 clarithromycin XL (BIAXIN XL) 500 mg 24 hr tabletTake 1 tablet by mouth two times a day for 14 days.Disp: 28 tabletRfl: 0 lansoprazole (PREVACID) 30 mg capsuleTake 1 capsule by mouth two times a day for 14 days. 1/2 hr before meal.Disp: 28 capsuleRfl: 0 CONSULT TO GENERAL SURGERY [9011] Order #: [id number]: 1 FUTURE Prescriptions as of 07/14/2024 - amoxicillin (AMOXIL) 500 mg capsule Take 2 capsules by mouth two times a day for 14 days. - clarithromycin XL (BIAXIN XL) 500 mg 24 hr tablet Take 1 tablet by mouth two times a day for 14 days. - lansoprazole (PREVACID) 30 mg capsule Take 1 capsule by mouth two times a day for 14 days. 1/2 hr before meal. - estradiol (ESTRACE) 0.01 % (0.1 mg/gram) vaginal cream Use 1 g vaginally two times a week. - clobetasol (TEMOVATE) 0.05 % ointment apply a pea-sized amount to vulva qhs. May use 1-2 times daily for 7-10 days prn flares. - MULTIVITAMIN ORAL Take by mouth. Meds Comments as of 10/27/2018: OTC Probiotic Problem List As Of Date 07/08/2024 Noted Resolved Calculus of kidney [N20.0] 11/27/2005 Personal history of tuberculosis [Z86.11] 12/29/2005 ABNORMAL FINDINGS NEC [R68.89] 12/29/2005 01/14/2008 Tobacco Use Disorder [F17.200] 12/29/2005 04/01/2010 CHEST PAIN UNSPECIFIED [R07.9] 12/29/2005 01/14/2008 OTITIS EXTERNA [H60.399] 02/02/2006 01/14/2008 PAIN LEG [M79.609] 11/18/2006 01/14/2008 Symptomatic menopausal or female climacteric st*01/14/2008 09/20/2015 DIARRHEA NOS [R19.7] 03/20/2008 08/18/20 (more content not included)... Normal [facility] CNCOon 07-06-2024 CNCO HNO ID: [id number] Author: COORDINATOR, MAMMOGRAPHY, ? Service: ? Author Type: Physician Type: Letter Filed: 07/06/2024 13:07 Note Text: July 06, 2024 PID: [id number] Juan R William Kelechiroel [address] [place] [address] Dear Ms. Nataliia Pollack, We are pleased to inform you that the results of your recent breast imaging exam on 07/03/2024 are normal. Breast tissue can be either dense or not dense. Dense tissue makes it harder to find breast cancer on a mammogram and also raises the risk of developing breast cancer. Your breast tissue is not dense. Talk to your healthcare provider about breast density, risks for breast cancer, and your individual situation. Early detection of cancer is very important. We also understand recommendations regarding breast cancer screening are controversial. Please discuss with your primary care provider which strategy is best for you and whether a mammogram is right for you. Your imaging studies and report will be kept on file at [facility] as part of your permanent medical record and are available for your continuing care. Thank you for allowing us to help in meeting your health care needs. Sincerely, Dr. Stout Interpreting Radiologist [facility] (Normal over 40) Normal [facility] Amylase SerPl-cCncon 024 Amylase [Catalytic activity/Vol] 53 U/L Normal 30-[address] [facility] Comment on above: Order Comment: Speci men Type: BLOOD SPECIMENOrdering Facility: [facility] Address: [address] [id number] Performed By: #### 1 798-8, 3016-3, 3040-3 ####[facility] LABCLIA [id number] [place] [address] [place] FAT, FECAL QUALon 07-03-2024 FAT, FECAL - NEUTRAL Normal Normal Normal [facility] Comment on above: Order Comment: Speci men Type: STOOL SPECIMENOrdering Facility: [facility] Address: [address] [place], [place] [id number] Performed By: #### F FATQL ####[facility] [id number] [place] [address] FAT, FECAL - SPLIT Normal Normal Normal [facility] Comment on above: Order Comment: Speci men Type: STOOL SPECIMENOrdering Facility: [facility] Address: [address] [place] [address] Result Comment: INTE RPRETIVE INFORMATION: Fecal Fat Qualitative Neutral fats include the monoglycerides, diglycerides, and triglycerides while split fats are the free fatty acids that are liberated from them. Impaired synthesis or secretion of pancreatic enzymes or bile may cause an increase in neutral fats while an increase in split fats suggests impaired absorption of nutrients. Performed By: [facility] [address] [place] [address] [place] Master: Shashi Curry MD, PhD CLIA Number: [id number] Performed By: #### F FATQL ####[facility] [id number] [place] [address] FECAL LACTOFERRIN/LEUKOCYTES on 07-03-2024 Lactoferrin IA Ql (Stl) Positive for lactoferrin, which may indicate presence of fecal white blood cells Abnormal Negative [facility] Comment on above: Order Comment: Speci men Type: STOOL SPECIMENOrdering Facility: [facility] Address: [address] [place] [address] Performed By: #### F ECWBC ####[facility] LABIA [id number] [place] [address] [place] G lamblia+Cryptosp Ag Stl Ql IAon 07-03-2024 G. lamblia+Cryptosporidium sp Ag IA Ql (Stl) CRYPTOSPORIDIUM ANTIGEN BY EIA: Negative for Cryptosporidium by EIA. GIARDIA ANTIGEN BY EIA: Negative for Giardia lamblia by EIA. Normal [facility] Comment on above: Performed By: #### 4 8059-0, 01024-8 ####[facility] LABCLIA [id number] [place] [address] [place] Gastrointestinal pathogens i dentified JUSTO+probe Nom (Stl)on 07-03-2024 Campylobacter sp DNA JUSTO+probe Nom (Unsp spec) Not detected Normal Not Detected [facility] Comment on above: Order Comment: Speci men Type: STOOL SPECIMENOrdering Facility: [facility] Address: [address] [place] [address] Performed By: #### 4 8059-0, 21992-7 ####[facility] LABCLIA [id number] [place] [address] [place] Salmonella sp DNA JUSTO+probe Ql (Unsp spec) Not detected Normal Not Detected [facility] Comment on above: Order Comment: Speci men Type: STOOL SPECIMENOrdering Facility: [facility] Address: [address] [place] [address] Performed By: #### 4 8059-0, 67966-2 ####[facility] LABCLIA [id number] [place] [address] [place] Shiga toxin stx gene JUSTO+probe Nom (Unsp spec) Not detected Normal Not Detected [facility] Comment on above: Order Comment: Speci men Type: STOOL SPECIMENOrdering Facility: [facility] Address: [address] [place] [address] Performed By: #### 4 8059-0, 06696-2 ####[facility] LABCLIA [id number] [place] [address] [place] Shigella sp DNA JUSTO+probe Ql (Unsp spec) Not detected Normal Not Detected [facility] Comment on above: Order Comment: Speci men Type: STOOL SPECIMENOrdering Facility: [facility] Address: [address] [place] [address] Performed By: #### 4 8059-0, 24503-6 ####[facility] LABCLIA [id number] [place] [address] [place] H. pylori IgG IA Qlon 2023 H. PYLORI IGG, QUAL Positive Abnormal Negative [facility] Comment on above: Order Comment: Speci men Type: BLOOD SPECIMENOrdering Facility: [facility] Address: [address] [place] [address] Result Comment: The result suggests recent or past infection with H. pylori. Clinical correlation is required. Where clinically warranted, follow up testing is suggested including Urea Breath Test or H. pylori stool antigen test. Performed By: #### 1 7859-0 ####[facility] LABCLIA [id number] [facility] [place] [address] [place] Hepatic function 2000 panelo n 07-03-2024 Albumin [Mass/Vol] 4.8 g/dL Normal 3.9-4.9 [facility] Comment on above: Order Comment: Speci men Type: BLOOD SPECIMENOrdering Facility: [facility] Address: [address] [place] [address] Performed By: #### 2 4325-3 ####[facility] [id number] [place] [address] [place] ALP [Catalytic activity/Vol] 67 U/L Normal 34-[address] [facility] Comment on above: Order Comment: Speci men Type: BLOOD SPECIMENOrdering Facility: [facility] Address: [address] [place] [address] Performed By: #### 2 4325-3 ####[facility] [id number] [place] [address] [place] ALT [Catalytic activity/Vol] 12 U/L Normal 7-[address] [facility] Comment on above: Order Comment: Speci men Type: BLOOD SPECIMENOrdering Facility: [facility] Address: [address] [place] [address] Performed By: #### 2 4325-3 ####[facility]CL[facility] [id number] [place] [address] [place] AST [Catalytic activity/Vol] 19 U/L Normal 13-[address] [facility] Comment on above: Order Comment: Speci men Type: BLOOD SPECIMENOrdering Facility: [facility] Address: [address] [place] [address] Performed By: #### 2 4325-3 ####[facility] FABIOWNCLIMirta [id number] [place] [address] [place] Bilirubin [Mass/Vol] 0.2 mg/dL Normal 0.2-1.3 [facility] Comment on above: Order Comment: Speci men Type: BLOOD SPECIMENOrdering Facility: [facility] Address: [address] [place] [address] Performed By: #### 2 4325-3 ####[facility] [id number] [place] [address] [place] Bilirubin.conjugated [Mass/Vol] mg/dL Normal <0.[address] [facility] Comment on above: Order Comment: Speci men Type: BLOOD SPECIMENOrdering Facility: [facility] Address: [address] [place] [address] Performed By: #### 2 4325-3 ####[facility]ITAL[facility]CL[facility] [id number] [place] [address] [place] Protein [Mass/Vol] 7.0 g/dL Normal 6.3-8.0 [facility] Comment on above: Order Comment: Speci men Type: BLOOD SPECIMENOrdering Facility: [facility] Address: [address] [place] [address] Performed By: #### 2 4325-3 ####[facility] [id number] [place] [address] [place] Lipase SerPl-cCncon 07-03-20 24 Lipase [Catalytic activity/Vol] 41 U/L Normal 16-[address] [facility] Comment on above: Order Comment: Speci men Type: BLOOD SPECIMENOrdering Facility: [facility] Address: [address] [id number] Performed By: #### 1 798-8, 3016-3, 3040-3 ####[facility] LABCLIA [id number] [place] [id number] [place] MEAGHAN SCREENINGon 07-03-2024 MEAGHAN SCREENING * * *Final Report* * * DATE OF EXAM: Jul 03 2024 7:32AM WRW [id number] - [facility] SCREENING / PROCEDURE REASON: Encounter for screening mammogram for breast cancer * * * * Physician Interpretation * * * * RESULT: #[id number] - [facility] SCREENING BILATERAL DIGITAL SCREENING MAMMOGRAM WITH CAD: 07/03/2024 HISTORY: /Screening Mammogram - patient reports NO breast symptoms /priors available for comparison Encounter For Screening Mammogram For Breast Cancer. RESULT: TECHNIQUE: The study was acquired using full field digital technology and interpreted from soft copy. Current study was also evaluated with a Computer Aided Detection (CAD). Comparison is made to exams dated: 02/06/2023 mammogram and 02/06/2022 mammogram - [facility]. There are scattered areas of fibroglandular density. No significant masses, calcifications, or other findings are seen in either breast. There has been no significant interval change. IMPRESSION: NEGATIVE There is no mammographic evidence of malignancy. A 1 year screening mammogram is recommended. Keshia Stout M.D., lp/dora:07/06/2024 13:07:42 Principal Engineer(s): RT Aleksandr(R)(M), [facility] letter sent: Normal over 40 Mammogram BI-RADS: Category 1: Negative Multiple national specialty organizations have released breast cancer screening guidelines for women at average risk for developing breast cancer - guidelines that are based on both evidence and opinion, yet differ on when to start and how often to screen for breast cancer. With representation from Breast Imaging, Internal Medicine, Women's Health, Family Medicine, and Medical/Surgical Oncology, the [facility] has carefully reviewed the data and reached the following consensus: 1) All women should engage in shared decision-making with their providers to decide when to start and how often to screen; 2) All women should have the opportunity to start screening mammography at age 40; 3) For women ages 45-55, we recommend annual screening mammograms; 4) For women ages 55 and over, we support both the transition from an annual to a biennial interval if this aligns more with patient's values and preferences, or continuation with annual screening; 5) All women should discuss with their providers when to stop screening mammograms. Stone Cutter: Dora Transcribe Date/Time: Jul 03 2024 7:20A Dictated by: KESHIA STOUT MD This examination was interpreted and the report reviewed and electronically signed by: KESHIA STOUT MD on Jul 06 2024 1:07PM EST [id number] N Normal [facility] TSH SerPl-aCncon 07-03-2024 TSH Qn 0.855 m[IU]/L Normal 0.270-4.[address] [facility] Comment on above: Order Comment: Speci men Type: BLOOD SPECIMENOrdering Facility: [facility] Address: [address] [place] [address] Performed By: #### 1 798-8, 3016-3, 3040-3 ####[facility] LABCLIA [id number] [address] [facility]on 07-01-2024 CNOV Office Visit (FAMPWS ) JUAN R GARCIA ([id number]) 1965 F Date Time Provider Department 07/01/24 7:20 PM ALEJO FLETCHERPWS During your visit today, we recorded the following information about you: Temperature Pulse Respiration Blood pressure 98 degrees 60/minute 16/minute 118/62 Weight 54 kg Alejo Fletcher MD 07/01/2024 9:12 PM Signed Chief Complaint Patient presents with: Follow Up HPI Juan R Pollack is a 58 year old female who presents here today for chronic diarrhea and lightheaded.. Patient with hx of CKD seeing renal, diverticulosis, IBS, COPD, as well as those reviewed and addressed below. Has IBS but this is different. Has been going on for about 4 months. She has upper abdominal pain. Is hungry and thirsty all the time. No nausea. Stool has been liquid. No blood or melena. She stopped the potassium citrate because she was just passing the pill through. Not affected by certain foods especially fatty foods. No recent travel or antibiotics. Past medical history, appointments, medications, allergies reviewed. Previous Medical History PAST MEDICAL HISTORY 01/14/2008: Adjustment disorder with depressed mood 01/27/2024: AK (actinic keratosis) Comment: 01/2024: left upper chest cryo, No date: Calculus of kidney 10/29/2017: CKD (chronic kidney disease) stage 3, GFR 30-59 ml/min ([facility]) Comment: Seeing Dr. Storey 04/01/2010: COPD (Chronic Obstructive Pulmonary Disease) No date: Corpus luteum cyst or hematoma 10/19/2013: Decreased libido 06/24/2018: Diverticulosis of intestine without bleeding 02/06/2022: Elevated hemoglobin A1c 01/18/2016: Ex-smoker Comment: Quit 2011. Smoked for about 20 yrs up to 1 PPD 1998: History of cervical cancer 10/19/2013: Hypotestosteronism 04/27/2008: Internal hemorrhoids without mention of complication 08/18/2008: Irritable bowel syndrome 2015: Lichen sclerosus et atrophicus Comment: biopsy done 01/28/2024: Lung nodules Comment: CT 01/2024 stable compared to 2014. No more f/u needed. 04/01/2010: Neck pain 12/29/2005: Personal history of tuberculosis Comment: Was treated. 10/29/2017: Stage 3a chronic kidney disease (HCC) Comment: Seeing Dr. Storey 04/01/2010: Vertigo Comment: rare Previous Surgical History PAST SURGICAL HISTORY 10/27/2015: COLONOSCOPY FLX DX W/COLLJ SPEC WHEN PFRMD Comment: Colonoscopy, repeat 10 yrs 04/27/2008: COLONOSCOPY W/BIOPSY SINGLE/MULTIPLE 11/11/1995: LITHOTRIPSY XTRCORP SHOCK WAVE Comment: Lithotripsy 02/07/2023: LITHOTRIPSY XTRCORP SHOCK WAVE; Right Comment: per Dr. Rios 11/11/1998: VAGINAL HYSTERECTOMY UTERUS 250 GM/< Comment: carcinoma in situ. Family History FAMILY HISTORY Problem Relation Age of Onset Cervical Cancer Mother Diabetes Mother Hypertension Father Stroke Father Aortic and brain aneurysm 2015 Heart Father other (nephrolithiasis) Father also in Maternal aunt Breast Cancer Maternal Grandmother Coronary Artery Disease Paternal Uncle Patient Allergies ALLERGIES Allergen Reactions Nitrofurantoin Other: See Comments Chest pain, sob, and body aches Yeast, Dried Unknown Current Medications Current Outpatient Medications on File Prior to Visit Medication Sig estradiol (ESTRACE) 0.01 % (0.1 mg/gram) vaginal cream Use 1 g vaginally two times a week. clobetasol (TEMOVATE) 0.05 % ointment apply a pea-sized amount to vulva qhs. May use 1-2 times daily for 7-10 days prn flares. MULTIVITAMIN ORAL Take by mouth. potassium citrate ER (UROCIT-K) 10 mEq (1,080 mg) TbER Take 1,080 mg by mouth once daily. Lactobacillus acidophilus (PROBIOTIC ORAL) Take by mouth. No current facility-administered medications on file prior to visit. Social History Social History Tobacco Use Smoking status: Former Current packs/day: 0.00 Average packs/day: 0.5 packs/day for 15.0 years (7.5 ttl pk-yrs) Types: Cigarettes Start date: 2000 Quit date: 2016 Years since quittin.6 Smokeless tobacco: Never Vaping Use Vaping status: Never Used Substance Use Topics Alcohol use: Yes Comment: occasional- 1-2 times per month Drug use: No Review of Symptoms REVIEW OF SYSTEMS See HPI EXAM: BP 118/62 Pulse 60 Temp 36.7 ?C (98 ?F) Resp 16 Wt 54 kg (119 lb) BMI 22.12 kg/m? Last 6 Encounter Wt Readings: Date: Wt: 07/01/2024 54 kg (119 lb) 01/27/2024 54.9 kg (121 lb) 01/15/2024 53.1 kg (117 lb) 02/06/2023 57.2 kg (126 lb) 02/05/2022 50.8 kg (112 lb) 02/03/2022 50.3 kg (111 lb) General Appearance: Well appearing, alert, in no acute distress, well-hydrated, well nourished.. Neck: Supple, no adenopathy; thyroid symmetric, normal size, no bruits. Lungs: Lungs clear to auscultation. No wheezing, rhonchi, rales.. Heart: RRR without murmur, gallop, or rubs. No ectopy. Abdomen: Abdomen soft, non-distended. Mid-epigastric soreness (more content not included)... Normal [facility] 24 hour urine citric acid me asurement (mass/time)Ordered By: Arlette Storey on 08-09-2023 Citrate (24H U) [Mass/Time] 423 mg/24 hr 320-1240 [facility] Comment on above: Performed at: [address] [id number] Director: Sobia Griggs MD, Phone: [phone] No Panel InformationOrdered By: Arlette Storey on 08-09-2023 Urine Citric Acid 273 mg/L Undefined [facility] 24 hour urine calcium measur ement (mass/time)Ordered By: Arlette Storey on 08-08-2023 Calcium (24H U) [Mass/Time] 190.8 mg/24 HR 42.0-353.0 [facility] 24 hour urine sodium measure ment (mass/time)Ordered By: Arlette Storey on 08-08-2023 Sodium (24H U) [Mass/Time] 125 mmol/24h 40-220 [facility] 24 hour urine specimen volum e measurementOrdered By: Arlette Storey on 08-08-2023 Specimen volume (24H U) 1.2 L [facility] Comment on above: *Additional results available. Contact laboratory/see report* Laboratory - Chemistry and C hemistry - challengeOrdered By: Arlette Storey on 08-08-2023 pH (U) 1 [pH] [facility] Sodium (U) [Moles/Vol] 104 mmol/L Not Establ. [facility] Laboratory - Specimen inform ationOrdered By: Arlette Storey on 08-08-2023 Collection time (Sharonda) [Date/time] 24.0 HR 24.0-24.0 [facility] No Panel InformationOrdered By: Arlette Storey on 08-08-2023 Urine Calcium 15.9 Not Estab. [facility] Urine Chloride 24 Hour TNP [facility] Comment on above: Test not performed Urine Potassium TNP [facility] Comment on above: Test not performed Urine Potassium 24 Hour TNP [facility] Comment on above: Test not performed Thin prep Papanicolaou smear with manual screeningOrdered By: Arlette Storey on 08-08-2023 Thin prep Papanicolaou smear with manual screening [facility] Comment on above: Test not performed Basophil percentageOrdered B y: Arlette Storey on 08-06-2023 Basophil percentage 3.3 mg/dL 2.5-4.9 [facility] Chloride [Moles/Vol] 107 mmol/L 98-107 [facility] Glucose [Mass/Vol] 118 mg/dL 74-106 [facility] Comment on above: Fasting Glucose resu lt from 100 to 125 mg/dL suggests IMPAIRED HOMEOSTASIS per A.D.A. criteria. Potassium [Moles/Vol] 4.0 mmol/L 3.5-5.1 [facility] Sodium [Moles/Vol] 140 mmol/L 136-145 [facility] Laboratory - Chemistry and C hemistry - challengeOrdered By: Arlette Storey on 08-06-2023 CO2 [Moles/Vol] 28.0 mmol/L 21.0-32.0 [facility] Urea nitrogen/Creatinine [Mass ratio] 21.7 mg/mg 10-20 [facility] No Panel InformationOrdered By: Arlette Storey on 08-06-2023 Estimated GFR (MDRD) Amer 62 mL/min >60 [facility] Comment on above: GFR Calc Estimated GFR (MDRD) Non-Af Amer 51 mL/min >60 [facility] Comment on above: Non- GFR Calc Serum or plasma albumin michael urement (mass/volume)Ordered By: Arlette Storey on 08-06-2023 Albumin [Mass/Vol] 3.6 g/dL 3.2-5.0 [facility] Serum or plasma calcium michael urement (mass/volume)Ordered By: Arlette Storey on 08-06-2023 Calcium [Mass/Vol] 8.9 mg/dL 8.5-10.1 [facility] Serum or plasma creatinine m easurement (mass/volume)Ordered By: Arlette Storey on 08-06-2023 Creatinine [Mass/Vol] 1.15 mg/dL 0.55-1.02 [facility] Comment on above: The validity of the calculated GFR & GFRAA in patients over 70 years has not been determined. Clinical correlation is essential. Serum or plasma urea nitroge n measurement (mass/volume)Ordered By: Arlette Storey on 08-06-2023 Urea nitrogen [Mass/Vol] 25 mg/dL 7-18 [facility] Basophil percentageOrdered B y: Arlette Storey on 07-26-2023 Chloride [Moles/Vol] 107 mmol/L 98-107 [facility] Glucose [Mass/Vol] 114 mg/dL 74-106 [facility] Comment on above: Fasting Glucose resu lt from 100 to 125 mg/dL suggests IMPAIRED HOMEOSTASIS per A.D.A. criteria. Potassium [Moles/Vol] 4.2 mmol/L 3.5-5.1 [facility] Sodium [Moles/Vol] 140 mmol/L 136-145 [facility] Laboratory - Chemistry and C hemistry - challengeOrdered By: Arlette Storey on 07-26-2023 CO2 [Moles/Vol] 31.0 mmol/L 21.0-32.0 [facility] Urea nitrogen/Creatinine [Mass ratio] 23.0 mg/mg 10-20 [facility] No Panel InformationOrdered By: Arlette Storey on 07-26-2023 Estimated GFR (MDRD) Amer 50 mL/min >60 [facility] Comment on above: GFR Calc Estimated GFR (MDRD) Non-Af Amer 41 mL/min >60 [facility] Comment on above: Non- GFR Calc Serum or plasma calcium michael urement (mass/volume)Ordered By: Arlette Storey on 07-26-2023 Calcium [Mass/Vol] 9.7 mg/dL 8.5-10.1 [facility] Serum or plasma creatinine m easurement (mass/volume)Ordered By: Arlette Storey on 07-26-2023 Creatinine [Mass/Vol] 1.39 mg/dL 0.55-1.02 [facility] Comment on above: The validity of the calculated GFR & GFRAA in patients over 70 years has not been determined. Clinical correlation is essential. Serum or plasma urea nitroge n measurement (mass/volume)Ordered By: Arlette Storey on 07-26-2023 Urea nitrogen [Mass/Vol] 32 mg/dL 7-18 [facility] Thin prep Papanicolaou smear with manual screeningOrdered By: Arlette Storey on 07-26-2023 Thin prep Papanicolaou smear with manual screening 2 5-15 [facility] Calcium oxalate dihydrate cr ystals detection in stone by infrared spectroscopyOrdered By: Dr. Rios on 03-29-2023 Calcium oxalate dihydrate crystals Infrared spectroscopy Ql (Stone) 20 % [facility] Color of specimen determinat ionOrdered By: Dr. Rios on 03-29-2023 Color (Unsp spec) Brown [facility] Laboratory - Miscellaneous t estsOrdered By: Dr. Rios on 03-29-2023 Service comment (Unsp spec) [Interp] See comment [facility] Comment on above: Physician questions regarding Calculi Analysis contact [facility] at: [phone]. Calculi report will follow via computer, mail or activity aid delivery. Measurement of weight of sto neOrdered By: Dr. Rios on 03-29-2023 Weight (Stone) 2 mg [facility] No Panel InformationOrdered By: Dr. Rios on 03-29-2023 Stone Analysis (T) See comment [facility] Comment on above: Percentage (Represen ts the % composition) Stone Calcium Oxalate Monohydrate 50 % [facility] Stone Calcium Phosphate 30 % [facility] Comment on above: Calcium phosphate (h ydroxyl form) includes hydroxapatite, amorphous calcium phosphate, and whitlockite. Hydroxyapatite is the most common of the calcium phosphate salts found in the human kidney stones. Origin of StoneOrdered By: Elkin Rios on 03-29-2023 Origin Nom (Stone) Left Kidney [facility] Size of stoneOrdered By: Dr. Rios on 03-29-2023 Size (Stone) [Entitic vol] 2x2 mm [facility] Comment on above: Multiple pieces rece ived. Dimensions of the largest piece reported. Thin prep Papanicolaou smear with manual screeningOrdered By: Dr. Rios on 05-19-2023 Thin prep Papanicolaou smear with manual screening See comment [facility] Comment on above: Photograph will foll ow under a separate cover MEAGHAN SCREENINGon 02-06-2023 [facility] Absolute lymphocyte countOrd ered By: Dr. Ac on 12-25-2022 Lymphocytes Auto (Unsp spec) [#/Vol] 2.64 10*3/uL 0.83-4.51 [facility] Basophil percentageOrdered B y: Dr. Ac on 12-25-2022 Basophils/100 WBC (Bld) 0.6 % 0-1 [facility] Chloride [Moles/Vol] 106 mmol/L 98-107 [facility] Eosinophils/100 WBC (Bld) 2.4 % 0-5 [facility] Glucose [Mass/Vol] 111 mg/dL 74-106 [facility] Comment on above: Fasting Glucose resu lt from 100 to 125 mg/dL suggests IMPAIRED HOMEOSTASIS per A.D.A. criteria. Neutrophils (Bld) [#/Vol] 5.0 10*3/uL 2.0-7.7 [facility] Neutrophils/100 WBC (Bld) 57.7 % 47-70 [facility] Potassium [Moles/Vol] 4.5 mmol/L 3.5-5.1 [facility] Sodium [Moles/Vol] 141 mmol/L 136-145 [facility] WBC (Bld) [#/Vol] 8.7 10*3/uL 4.4-11.0 [facility] Basophil percentage 0 SEEN /hpf 0-5 [facility] Bilirubin Test strip Ql (U)O rdered By: Dr. Ac on 12-25-2022 Bilirubin Ql (U) Negative Negative [facility] Blood erythrocytes count (nu mber/volume)Ordered By: Dr. cA on 12-25-2022 RBC (Bld) [#/Vol] 4.47 10*6/uL 4.2-5.4 [facility] Blood hemoglobin measurement (mass/volume)Ordered By: Dr. Ac on 12-25-2022 Hemoglobin (Bld) [Mass/Vol] 13.3 g/dL 12.0-15.0 [facility] Blood lymphocytes/100 leukoc ytesOrdered By: Dr. Ac on 12-25-2022 Lymphocytes/100 WBC (Bld) 30.5 % 19-41 [facility] Blood monocytes/100 leukocyt esOrdered By: Dr. Ac on 12-25-2022 Monocytes/100 WBC (Bld) 8.5 % 0-10 [facility] Blood platelet mean volumeOr dered By: Dr. Ac on 12-25-2022 Platelet mean volume (Bld) [Entitic vol] 10.3 fL 6.2-12.0 [facility] Determination of erythrocyte mean corpuscular volume (MCV)Ordered By: Dr. Ac on 12-25-2022 MCV (RBC) [Entitic vol] 93.3 fL 81-99 [facility] Hematocrit Auto (Bld) [Volum e fraction]Ordered By: Dr. Ac on 12-25-2022 Hematocrit (Bld) [Volume fraction] 41.7 % 37-47 [facility] Ketones Test strip Ql (U)Ord ered By: Dr. Ac on 12-25-2022 Ketones Ql (U) Negative Negative [facility] Laboratory - Chemistry and C hemistry - challengeOrdered By: Dr. Ac on 12-25-2022 CO2 [Moles/Vol] 27.0 mmol/L 21.0-32.0 [facility] Urea nitrogen/Creatinine [Mass ratio] 20.7 mg/mg 10-20 [facility] Laboratory - Hematology and Cell countsOrdered By: Dr. Ac on 12-25-2022 Erythrocyte distribution width (RBC) [Entitic vol] 41.3 fL 35.1-43.9 [facility] Erythrocyte distribution width (RBC) [Ratio] 12.0 % 11.6-14.6 [facility] Immature granulocytes/100 WBC (Bld) 0.300 % 0.0-0.9 [facility] Comment on above: IG% - Immature Granu locytes (promyelocytes, myelocytes and metamyelocytes) > 1% indicates that a LEFT SHIFT is Present. MCH (RBC) [Entitic mass] 29.8 pg 27.0-32.0 [facility] Nucleated RBC/100 WBC (Bld) [Ratio] 0 % 0-5 [facility] [facility] [place] MCHC Auto (RBC) [Mass/Vol]Or dered By: Dr. Ac on 12-25-2022 MCHC (RBC) [Mass/Vol] 31.9 g/dL 32-36 [facility] Mucus LM Ql (Urine sed)Order ed By: Dr. Ac on 12-25-2022 Mucus Ql (Urine sed) 0 SEEN /hpf [facility] Nitrite Test strip Ql (U)Ord ered By: Dr. Ac on 12-25-2022 Nitrite Ql (U) Negative Negative [facility] [place] No Panel InformationOrdered By: Dr. Ac on 12-25-2022 Estimated Creatinine Clearance Calc 35.49 ml/min [facility] [place] Estimated GFR (MDRD) Amer 52 mL/min >60 [facility] [place] Comment on above: GFR Calc Estimated GFR (MDRD) Non-Af Amer 43 mL/min >60 [facility] [place] Comment on above: Non- GFR Calc Platelets bldOrdered By: Dr. Ac on 12-25-2022 Platelets (Bld) [#/Vol] 278 10*3/uL 150-450 [facility] [place] Protein Test strip Ql (U)Ord ered By: Dr. Ac on 12-25-2022 Protein Ql (U) Negative Negative [facility] [place] Serum or plasma calcium michael urement (mass/volume)Ordered By: Dr. Ac on 12-25-2022 Calcium [Mass/Vol] 9.5 mg/dL 8.5-10.1 [facility] Serum or plasma creatinine m easurement (mass/volume)Ordered By: Dr. Ac on 12-25-2022 Creatinine [Mass/Vol] 1.35 mg/dL 0.55-1.02 [facility] Comment on above: The validity of the calculated GFR & GFRAA in patients over 70 years has not been determined. Clinical correlation is essential. Serum or plasma urea nitroge n measurement (mass/volume)Ordered By: Dr. Ac on 12-25-2022 Urea nitrogen [Mass/Vol] 28 mg/dL 7-18 [facility] [place] Squamous epithelial cells de tection in urine sediment by light microscopyOrdered By: Dr. Ac on 12-25-2022 Epithelial cells.squamous LM Ql (Urine sed) 0 SEEN /hpf 5-10 [facility] [place] Thin prep Papanicolaou smear with manual screeningOrdered By: Dr. Ac on 12-25-2022 Thin prep Papanicolaou smear with manual screening 8 5-15 [facility] [place] Urine blood detectionOrdered By: Dr. Ac on 12-25-2022 RBC Ql (U) Negative Negative [facility] [place] RBC Ql (U) 0 SEEN /hpf 0-5 [facility] [place] Urine clarityOrdered By: Dr. Ac on 12-25-2022 Clarity (U) Clear Clear [facility] [place] Urine color determinationOrd ered By: Dr. Ac on 12-25-2022 Color (U) Yellow Yellow [facility] [place] Urine glucose detectionOrder ed By: Dr. Ac on 12-25-2022 Glucose Ql (U) Normal mg/dl Normal [facility] [place] Urine leukocyte esterase det ection by dipstickOrdered By: Dr. Ac on 12-25-2022 Leukocyte esterase Test strip Ql (U) Negative Negative [facility] [place] Urine pHOrdered By: Dr. Kaleb flores on 12-25-2022 pH (U) 6.0 [pH] 5.0 - 8.0 [facility] [place] Urine sediment bacteria coun t by microscopy (number/high power field)Ordered By: Dr. Ac on 12-25-2022 Bacteria LM.HPF (Urine sed) [#/Area] 1 /[HPF] None Seen [facility] [place] Urine specific gravity measu rementOrdered By: Dr. Ac on 12-25-2022 Specific gravity (U) [Rel density] 1.020 1.002-1.030 [facility] [place] Urobilinogen Auto test strip Ql (U)Ordered By: Dr. Ac on 12-25-2022 Urobilinogen Ql (U) Normal mg/dl Normal [facility] 24 hour urine calcium measur ement (mass/time)on 06-28-2022 Calcium (24H U) [Mass/Time] 378.0 mg/24 HR 42.0-353.0 [facility] [place] Work Phone: 24 hour urine sodium measure ment (mass/time)on 06-28-2022 Sodium (24H U) [Mass/Time] 133 mmol/24h 40-220 [facility] [place] Work Phone: 24 hour urine specimen volum e measurementon 06-28-2022 Specimen volume (24H U) 1.05 [address] [facility] Work Phone: Laboratory - Chemistry and C hemistry - challengeon 06-28-2022 pH (U) 1 [pH] [facility] [place] Work Phone: Comment on above: Previous reported re sult: 4 Edited by: DAV on 06/29/22:0750 AMENDED REPORT 06/29/22749 Calcium UR pH previously reported as: 4 H Sodium (U) [Moles/Vol] 127 mmol/L Not Establ. [facility] Work Phone: Laboratory - Specimen inform ationon 06-28-2022 Collection time (Sharonda) [Date/time] 24.0 HR 24.0-24.0 [facility] [place] Work Phone: No Panel Informationon 06-28 Urine Calcium 36.0 Not Estab. [facility] [place] Work Phone: Urine Chloride 24 Hour TNP [facility] Work Phone: Comment on above: Test not performed Urine Potassium TNP [facility] [place] Work Phone: Comment on above: Test not performed Urine Potassium 24 Hour TNP [facility] Work Phone: Comment on above: Test not performed Thin prep Papanicolaou smear with manual screeningon 06-28-2022 Thin prep [facility]olaou [facility] Comment on above: Test not performed Basophil percentageon 2021 Basophil percentage 2.6 mg/dL 2.5-4.9 [facility] Work Phone: Chloride [Moles/Vol] 106 mmol/L 98-[address] [facility] Work Phone: Glucose [Mass/Vol] 110 mg/dL 74-106 [facility] Work Phone: Comment on above: Fasting Glucose resu lt from 100 to 125 mg/dL suggests IMPAIRED HOMEOSTASIS per A.D.A. criteria. Potassium [Moles/Vol] 4.2 mmol/L 3.5-5.1 [facility] Work Phone: Sodium [Moles/Vol] 139 mmol/L 136-145 [facility] Work Phone: Laboratory - Chemistry and C hemistry - challengeon 06-26-2022 CO2 [Moles/Vol] 29.0 mmol/L 21.0-32.0 [facility] [place] Work Phone: Urea nitrogen/Creatinine [Mass ratio] 17.7 mg/mg 10-20 [facility] [place] Work Phone: No Panel Informationon 06-26 Estimated GFR (MDRD) Amer 64 mL/min >60 [facility] [place] Work Phone: Comment on above: GFR Calc Estimated GFR (MDRD) Non-Af Amer 53 mL/min >60 [facility] [place] Work Phone: Comment on above: Non- GFR Calc Serum or plasma albumin michael urement (mass/volume)on 06-26-2022 Albumin [Mass/Vol] 3.9 g/dL 3.2-5.0 [facility] Work Phone: Serum or plasma calcium michael urement (mass/volume)on 06-26-2022 Calcium [Mass/Vol] 9.1 mg/dL 8.5-10.1 [facility] Work Phone: Serum or plasma creatinine m easurement (mass/volume)on 06-26-2022 Creatinine [Mass/Vol] 1.13 mg/dL 0.55-1.02 [facility] Work Phone: Comment on above: The validity of the calculated GFR & GFRAA in patients over 70 years has not been determined. Clinical correlation is essential. Serum or plasma urea nitroge n measurement (mass/volume)on 06-26-2022 Urea nitrogen [Mass/Vol] 20 mg/dL 7-18 [facility] [place] Work Phone: MEAGHAN SCREENINGon 02-06-2022 [facility] Neelam 02-17-2021 CNPN Telephone (CDLBME) JUAN R GARCIA ([id number]) 1965 F Date Time Provider Department 02/17/21 SOFÍA RIVERA (RN) CDLBME During your visit today, we recorded the following information about you: Sofía Rivera RN, RN 02/17/2021 1:08 PM Signed Left message regarding reminder for stress test on Saturday and given instructions Allergies As of Date: 02/17/2021 Noted Allergy Reaction NITROFURANTOIN 10/16/2016 14 - Other: See Comments Comments: Chest pain, sob, and body aches YEAST, DRIED 11/27/2005 16 - Unknown Date Reviewed: 02/03/2021 Reviewed by: Alejo Fletcher - Fully Assessed Reason for Visit: Reminder Call [[id number]] Prescriptions as of 02/17/2021 Sig: CLOBETASOL 0.05 % TOPICAL OIN* Apply to vulva nightly for 6 * ESTRADIOL 0.01% (0.1 MG/GRAM)* Use 1 g vaginally two times a* POTASSIUM CITRATE ER 10 MEQ (* Take 1,080 mg by mouth once d* PROBIOTIC ORAL Take by mouth. Problem List As Of Date 02/17/2021 Noted Resolved Calculus of kidney [N20.0] 11/27/2005 Personal history of tuberculosis [Z86.11] 12/29/2005 ABNORMAL FINDINGS NEC [R68.89] 12/29/2005 01/14/2008 Tobacco Use Disorder [F17.200] 12/29/2005 04/01/2010 CHEST PAIN UNSPECIFIED [R07.9] 12/29/2005 01/14/2008 OTITIS EXTERNA [H60.399] 02/02/2006 01/14/2008 PAIN LEG [M79.609] 11/18/2006 01/14/2008 Symptomatic menopausal or female climacteric st*01/14/2008 09/20/2015 DIARRHEA NOS [R19.7] 03/20/2008 08/18/2008 Internal hemorrhoids without mention of complic*04/27/2008 Irritable bowel syndrome [K58.9] 08/18/2008 COPD (Chronic Obstructive Pulmonary Disease) [J*04/01/2010 Vertigo [R42] 04/01/2010 Neck pain [M54.2] 04/01/2010 Decreased libido [R68.82] 10/19/2013 05/23/2020 Hypotestosteronism [E34.9] 10/19/2013 Encounter for screening for malignant neoplasm *10/27/2015 10/27/2015 Encounter for gynecological examination without*01/18/2016 Smoker [F17.200] 01/18/2016 12/21/2016 Lichen sclerosus et atrophicus [L90.0] Well adult exam [Z00.00] 01/18/2016 Screening for diabetes mellitus (DM) [Z13.1] 01/18/2016 CKD (chronic kidney disease) stage 3, GFR 30-59*10/29/2017 Diverticulosis of intestine without bleeding [K*06/24/2018 History of cervical cancer [Z85.41] 11/11/1998 05/23/2020 Encounter for lipid screening for cardiovascula* 021 Ex-smoker [Z87.891] 01/18/2016 Encounter Status:Closed by SOFÍA RIVERA on 02/17/21 [facility] 06-22-2020 [facility] Telephone (FVPRAD) JUAN R GARCIA ( ) 1965 F Date Time Provider Department 06/22/20 JOSE LUIS MARINELLI) FVMARTY During your visit today, we recorded the following information about you: Jose Luis Burciaga MD 06/22/2020 5:01 PM Signed Telephone encounter 4:57 PM Called and spoke to Ms. William and discussed her culture was negative for mycoplasma hominis or ureaplasma urealyticum. She's appreciative of call. She has an appointment of Saturday for follow up. SIGNATURE: Jose Luis Burciaga MD PATIENT NAME: Juan R Pollack DATE: June 22, 2020 MRN: TIME: 5:00 PM PAGER/CONTACT #: [id number] Allergies As of Date: 06/22/2020 Noted Allergy Reaction NITROFURANTOIN 10/16/2016 14 - Other: See Comments Comments: Chest pain, sob, and body aches YEAST, DRIED 11/27/2005 16 - Unknown Date Reviewed: 06/13/2020 Reviewed by: Sharmin Latham - Fully Assessed Reason for Visit: culture results [Other] Prescriptions as of 06/22/2020 Sig: CLOBETASOL 0.05 % TOPICAL OIN* Apply to vulva nightly for 6 * AZITHROMYCIN 250 MG TABLET Take 1 tablet by mouth once d* ESTRADIOL 0.01% (0.1 MG/GRAM)* Use 1 g vaginally two times a* ZINC ORAL Take 1 tablet by mouth once d* MUCINEX 600 MG TABLET, EXTEND* Take 2 tablets by mouth twice* Patient not taking: Reported on 05/19/2020 BENZONATATE 100 MG CAPSULE Take 1 capsule by mouth three* Patient not taking: Reported on 12/07/2019 POTASSIUM CITRATE ER 10 MEQ (* Take 1,080 mg by mouth once d* COMPOUNDED PRESCRIPTION 0.1 % estriol cream. Apply 1* Patient not taking: Reported on 05/08/2020 PROBIOTIC ORAL Take by mouth. Problem List As Of Date 06/22/2020 Noted Resolved Calculus of kidney [N20.0] 11/27/2005 Personal history of tuberculosis [Z86.11] 12/29/2005 More... ABNORMAL FINDINGS NEC [R68.89] 12/29/2005 01/14/2008 Tobacco Use Disorder [F17.200] 12/29/2005 04/01/2010 CHEST PAIN UNSPECIFIED [R07.9] 12/29/2005 01/14/2008 OTITIS EXTERNA [H60.399] 02/02/2006 01/14/2008 PAIN LEG [M79.609] 11/18/2006 01/14/2008 Symptomatic menopausal or female climacteric st*01/14/2008 09/20/2015 DIARRHEA NOS [R19.7] 03/20/2008 08/18/2008 Internal hemorrhoids without mention of complic*04/27/2008 Irritable bowel syndrome [K58.9] 08/18/2008 COPD (Chronic Obstructive Pulmonary Disease) [J*04/01/2010 More... Vertigo [R42] 04/01/2010 More... Neck pain [M54.2] 04/01/2010 Decreased libido [R68.82] 10/19/2013 05/23/2020 Hypotestosteronism [E34.9] 10/19/2013 Encounter for screening for malignant neoplasm *10/27/2015 10/27/2015 Encounter for gynecological examination without*01/18/2016 More... Smoker [F17.200] 01/18/2016 12/21/2016 More... Lichen sclerosus et atrophicus [L90.0] More... Well adult exam [Z00.00] 01/18/2016 More... Screening for diabetes mellitus (DM) [Z13.1] 01/18/2016 CKD (chronic kidney disease) stage 3, GFR 30-59*10/29/2017 Diverticulosis of intestine without bleeding [K*06/24/2018 History of cervical cancer [Z85.41] 11/11/1998 05/23/2020 Smoker [F17.200] 01/18/2016 More... Encounter Status:Closed by JOSE LUIS MARINELLI on 06/22/20 [facility] Vital Signs Date Time Vital Sign Value Performing Clinician Facility 03-09-2025 11:23-040 Body height 157.[address] Alejo Fletcher MD Work Phone: [facility] [place] 03-09-2025 11:23-0400 Body mass index (BMI) [Ratio] 21.9 kg/m2 Dr. Alejo Fletcher MD Work Phone: [facility] [place] 03-09-2025 11:23-040 Body weight 54.[address] Alejo Fletcher MD Work Phone: [facility] [place] 03-09-2025 11:23-0400 Diastolic blood pressure 72 mm[Hg] Dr. Alejo Fletcher MD Work Phone: [facility] [place] 03-09-2025 11:23-0400 Heart rate 55 /min Dr. Alejo Fletcher MD Work Phone: [facility] [place] 03-09-2025 11:23-0400 Respiratory rate 18 /min Dr. Alejo Fletcher MD Work Phone: [facility] [place] 03-09-2025 11:23-0400 SaO2% (BldA) [Mass fraction] 98 % Dr. Alejo Fletcher MD Work Phone: [facility] [place] 03-09-2025 11:23-0400 Systolic blood pressure 130 mm[Hg] Dr. Alejo Fletcher MD Work Phone: [facility] [place] 12-23-2024 09:02-0500 Body mass index (BMI) [Ratio] 22.08 kg/m2 Tana Eron ACCOUNT RETENTION REPRESENTATIVE.CUSTOMER DATA TECHNICIAN Work Phone: [facility] 12-23-2024 09:02-0500 Body temperature 97.5 [degF] Tana Eron ACCOUNT RETENTION REPRESENTATIVE.CUSTOMER DATA TECHNICIAN Work Phone: [facility] 12-23-2024 09:02-0500 Body weight 53.43 kg Tana Eron ACCOUNT RETENTION REPRESENTATIVE.CUSTOMER DATA TECHNICIAN Work Phone: [facility] 12-23-2024 09:02-0500 Diastolic blood pressure 62 mm[Hg] Tana Eron ACCOUNT RETENTION REPRESENTATIVE.CUSTOMER DATA TECHNICIAN Work Phone: [facility] 12-23-2024 09:02-0500 Heart rate 71 /min Tana Eron ACCOUNT RETENTION REPRESENTATIVE.CUSTOMER DATA TECHNICIAN Work Phone: [facility] 12-23-2024 09:02-0500 Respiratory rate 16 /min Tana Eron ACCOUNT RETENTION REPRESENTATIVE.CUSTOMER DATA TECHNICIAN Work Phone: [facility] 12-23-2024 09:02-0500 Systolic blood pressure 116 mm[Hg] Tana Eron ACCOUNT RETENTION REPRESENTATIVE.CUSTOMER DATA TECHNICIAN Work Phone: [facility] 11-25-2024 09:23-0500 Body height 155.6 cm Tanya Brar MD Work Phone: [facility] 11-25-2024 09:23-0500 Body mass index (BMI) [Ratio] 20.99 kg/m2 Tanya Brar MD Work Phone: [facility] 11-25-2024 09:23-0500 Body weight 50.8 kg Tanya Brar MD Work Phone: [facility] 11-25-2024 09:23-0500 Diastolic blood pressure 62 mm[Hg] Tanya Brar MD Work Phone: [facility] 11-25-2024 09:23-0500 Systolic blood pressure 124 mm[Hg] Tanya Brar MD Work Phone: [facility] 11-07-2024 13:52-0500 Body temperature 97.8 [degF] Dr. Alejo Fletcher MD Work Phone: 6(253)489-592186 [place] [address] 11-07-2024 13:52-0500 Diastolic blood pressure 78 mm[Hg] Dr. Alejo Fletcher MD Work Phone: 7(876)760-708486 [place] [address] 11-07-2024 13:52-0500 Heart rate 78 /min Dr. Alejo Fletcher MD Work Phone: 5(228)551-535825 [place] [address] 11-07-2024 13:52-0500 Respiratory rate 16 /min Dr. Alejo Fletcher MD Work Phone: 5(583)378-639825 [place] [address] 11-07-2024 13:52-0500 SaO2% (BldA) [Mass fraction] 100 % Dr. Alejo Fletcher MD Work Phone: 3(276)737-267525 [place] [address] 11-07-2024 13:52-0500 Systolic blood pressure 129 mm[Hg] Dr. Alejo Fletcher MD Work Phone: 2(190)471-337925 [place] [address] 11-07-2024 10:33-0500 Body height 157.[address] Alejo Fletcher MD Work Phone: 8(602)517-612386 [place] [address] 11-07-2024 10:33-0500 Body mass index (BMI) [Ratio] 21.1 kg/m2 Dr. Alejo Fletcher MD Work Phone: [facility] [place] 11-07-2024 10:33-0500 Body weight 52.[address] Alejo Fletcher MD Work Phone: [facility] [place] 07-30-2024 09:15-0400 Diastolic blood pressure 63 mm[Hg] Marcial Davis MD Work Phone: [facility] 07-30-2024 09:15-0400 Heart rate 54 /min Marcial Davis MD Work Phone: [facility] 07-30-2024 09:15-0400 SaO2% (BldA) [Mass fraction] 97 % Marcial Davis MD Work Phone: [facility] 07-30-2024 09:15-0400 Systolic blood pressure 134 mm[Hg] Marcial Davis MD Work Phone: [facility] 07-30-2024 09:01-0400 Respiratory rate 16 /min Marcial Davis MD Work Phone: [facility] 07-30-2024 07:34-0400 Body mass index (BMI) [Ratio] 21.77 kg/m2 Marcial Davis MD Work Phone: [facility] 07-30-2024 07:34-0400 Body temperature 97.7 [degF] Marcial Davis MD Work Phone: [facility] 07-30-2024 07:34-0400 Body weight 54 kg Marcial Davis MD Work Phone: [facility] 07-24-2024 08:33-0400 Body height 157.5 cm Tana Eron ACCOUNT RETENTION REPRESENTATIVE.CUSTOMER DATA TECHNICIAN Work Phone: [facility] 07-24-2024 08:33-0400 Body mass index (BMI) [Ratio] 21.77 kg/m2 Tana Eron ACCOUNT RETENTION REPRESENTATIVE.CUSTOMER DATA TECHNICIAN Work Phone: [facility] 07-24-2024 08:33-0400 Body temperature 97.5 [degF] Tana Eron ACCOUNT RETENTION REPRESENTATIVE.CUSTOMER DATA TECHNICIAN Work Phone: [facility] 07-24-2024 08:33-0400 Body weight 53.98 kg Tana Eron ACCOUNT RETENTION REPRESENTATIVE.CUSTOMER DATA TECHNICIAN Work Phone: [facility] 07-24-2024 08:33-0400 Diastolic blood pressure 83 mm[Hg] Tana Eron ACCOUNT RETENTION REPRESENTATIVE.CUSTOMER DATA TECHNICIAN Work Phone: [facility] 07-24-2024 08:33-0400 Heart rate 71 /min Tana Eron ACCOUNT RETENTION REPRESENTATIVE.CUSTOMER DATA TECHNICIAN Work Phone: [facility] 07-24-2024 08:33-0400 SaO2% (BldA) [Mass fraction] 98 % Tana Eron ACCOUNT RETENTION REPRESENTATIVE.CUSTOMER DATA TECHNICIAN Work Phone: [facility] 07-24-2024 08:33-0400 Systolic blood pressure 143 mm[Hg] Tana Eron ACCOUNT RETENTION REPRESENTATIVE.CUSTOMER DATA TECHNICIAN Work Phone: [facility] 07-01-2024 20:14-0400 Body mass index (BMI) [Ratio] 22.12 kg/m2 Alejo Fletcher MD Work Phone: [facility] 07-01-2024 20:14-0400 Body temperature 98.01 [degF] Alejo Fletcher MD Work Phone: [facility] 07-01-2024 20:14-0400 Body weight 53.98 kg Alejo Fletcher MD Work Phone: [facility] 07-01-2024 20:14-0400 Diastolic blood pressure 62 mm[Hg] Alejo Fletcher MD Work Phone: [facility] 07-01-2024 20:14-0400 Heart rate 60 /min Alejo Fletcher MD Work Phone: [facility] 07-01-2024 20:14-0400 Respiratory rate 16 /min Alejo Fletcher MD Work Phone: [facility] 07-01-2024 20:14-0400 Systolic blood pressure 118 mm[Hg] Alejo Fletcher MD Work Phone: [facility] 01-27-2024 07:58-0400 Body weight 54.88 kg Alejo Fletcher MD Work Phone: [facility] 01-27-2024 07:58-0400 Diastolic blood pressure 86 mm[Hg] Alejo Fletcher MD Work Phone: [facility] 01-27-2024 07:58-0400 Heart rate 56 /min Alejo Fletcher MD Work Phone: [facility] 01-27-2024 07:58-0400 Respiratory rate 16 /min Alejo Fletcher MD Work Phone: [facility] 01-27-2024 07:58-0400 Systolic blood pressure 118 mm[Hg] Alejo Fletcher MD Work Phone: [facility] 01-15-2024 18:49-0500 Body height 156.2 cm Alejo Fletcher MD Work Phone: [facility] 01-15-2024 18:49-0500 Body weight 53.07 kg Alejo Fletcher MD Work Phone: [facility] 01-15-2024 18:49-0500 Diastolic blood pressure 70 mm[Hg] Alejo Fletcher MD Work Phone: [facility] 01-15-2024 18:49-0500 Heart rate 70 /min Alejo Fletcher MD Work Phone: [facility] 01-15-2024 18:49-0500 Respiratory rate 14 /min Alejo Fletcher MD Work Phone: [facility] 01-15-2024 18:49-0500 Systolic blood pressure 114 mm[Hg] Alejo Fletcher MD Work Phone: [facility] 03-28-2023 09:42-0400 Body temperature 97.3 [degF] [facility] 03-28-2023 09:42-0400 Diastolic blood pressure 88 mm[Hg] [facility] 03-28-2023 09:42-0400 Heart rate 68 /min [facility] 03-28-2023 09:42-0400 Respiratory rate 16 /min [facility] 03-28-2023 09:42-0400 SaO2% (BldA) [Mass fraction] 98 % [facility] [place] 03-28-2023 09:42-0400 Systolic blood pressure 133 mm[Hg] [facility] 03-28-2023 07:09-0400 Body height 162.56 cm [facility] 03-28-2023 07:09-0400 Body mass index (BMI) [Ratio] 20.5 kg/m2 [facility] [place] 03-28-2023 07:09-0400 Body weight 54.43 kg [facility] 02-07-2023 16:51-0400 Body temperature 98.3 [degF] [facility] 02-07-2023 16:51-0400 Diastolic blood pressure 80 mm[Hg] [facility] 02-07-2023 16:51-0400 Heart rate 67 /min [facility] 02-07-2023 16:51-0400 Respiratory rate 16 /min [facility] 02-07-2023 16:51-0400 SaO2% (BldA) [Mass fraction] 98 % [facility] [place] 02-07-2023 16:51-0400 Systolic blood pressure 130 mm[Hg] [facility] 02-07-2023 15:30-0400 Inhaled oxygen flow rate 2 L/min [facility] 02-07-2023 13:05-0400 Body height 157.48 cm [facility] 02-07-2023 13:05-0400 Body mass index (BMI) [Ratio] 22.5 kg/m2 [facility] 02-07-2023 13:05-0400 Body weight 55.8 kg [facility] 02-06-2023 08:43-0400 Body weight 57.15 kg Tanya Brar MD Work Phone: [facility] 02-06-2023 08:43-0400 Diastolic blood pressure 86 mm[Hg] Tanya Brar MD Work Phone: [facility] 02-06-2023 08:43-0400 Systolic blood pressure 128 mm[Hg] Tanya Brar MD Work Phone: [facility] 12-25-2022 06:39-0500 Diastolic blood pressure 68 mm[Hg] [facility] 12-25-2022 06:39-0500 Heart rate 68 /min [facility] 12-25-2022 06:39-0500 Respiratory rate 18 /min [facility] 12-25-2022 06:39-0500 SaO2% (BldA) [Mass fraction] 98 % [facility] 12-25-2022 06:39-0500 Systolic blood pressure 118 mm[Hg] [facility] 12-25-2022 04:14-0500 Body height 157.48 cm [facility] [facility] 12-25-2022 04:14-0500 Body mass index (BMI) [Ratio] 22.3 kg/m2 [facility] 12-25-2022 04:14-0500 Body temperature 97.5 [degF] [facility] 12-25-2022 04:14-0500 Body weight 55.3 kg [facility] 02-05-2022 10:22-0400 Body height 156.2 cm Tanya Brar MD Work Phone: [facility] 02-05-2022 10:22-0400 Body weight 50.8 kg Tanya Brar MD Work Phone: [facility] 02-05-2022 10:22-0400 Diastolic blood pressure 76 mm[Hg] Tanya Brar MD Work Phone: [facility] 02-05-2022 10:22-0400 Systolic blood pressure 122 mm[Hg] Tanya Brar MD Work Phone: [facility] 02-03-2022 10:22-0400 Body height 156 cm Alejo Fletcher MD Work Phone: [facility] 02-03-2022 10:22-0400 Body weight 50.35 kg Alejo Fletcher MD Work Phone: [facility] 02-03-2022 10:22-0400 Diastolic blood pressure 76 mm[Hg] Alejo Fletcher MD Work Phone: [facility] 02-03-2022 10:[id number] Heart rate 72 /min Alejo Fletcher MD Work Phone: [facility] 02-03-2022 10:0400 Respiratory rate 12 /min Alejo Fletcher MD Work Phone: [facility] 02-03-2022 10:-0400 Systolic blood pressure 110 mm[Hg] Alejo Fletcher MD Work Phone: [facility] Encounters Encounter Date Encounter Type Care Provider Facility Start: 04-01-2025 ambulatory Chavo Chi Deondre Facility:[facility] Start: 04-01-2025 Non-patient / Non-visit Dr. Anna sigala MD -[facility] Start: 04-01-2025 End: 04-01-[address] Alejo Fletcher MD Work Phone: [facility] Work Phone: Start: 04-01-2025 End: 04-01-[address] Anna Ragsdale MD -Cardiovascular Services Work Phone: Start: 04-01-2025 End: 04-01-2025 ambulatory Chavo Chi Deondre Facility:[facility] Start: 03-25-2025 End: 03-25-[address] Alejo Fletcher MD Work Phone: [facility] Work Phone: Start: 03-25-2025 End: 03-25-[address] Arlette Storey DO -Laboratory Work Phone: Start: 03-25-2025 End: 03-25-2025 ambulatory Chavo Chi Deondre Facility:[facility] Start: 03-09-2025 End: 03-09-[address] Anna Ragsdale MD -[place] [facility] Work Phone: Start: 03-09-2025 End: 03-09-2025 ambulatory Chavo Chi Deondre Facility:[facility] Start: 02-12-2025 End: 02-12-[address] Alejo Fletcher MD Work Phone: [facility] Work Phone: Start: 02-12-2025 End: 02-12-[address] Chavo Mendosa MD -Cat [facility], [facility] Work Phone: Start: 02-12-2025 End: 02-12-2025 [facility] Start: 01-27-2025 End: 01-27-[address] Alejo Fletcher MD Work Phone: [facility] Work Phone: Start: 01-27-2025 End: 01-27-[address] Chavo Mendosa MD -Laboratory, [facility] Office [address] [place] [address] Start: 01-27-2025 End: 01-27-2025 ambulatory Chavo Castellanos Deondre Facility:[facility] Start: 01-19-2025 End: 01-19-2025 Chart abstracting Alejo Fletcher MD Work Phone: [facility] Comment on above: Outside Lfpx-Mab-CZE Ordered Start: 01-12-2025 End: 01-12-[address] Alejo Fletcher MD Work Phone: [facility] Work Phone: Start: 01-12-2025 End: 01-12-[address] Arlette Storey DO -Laboratory Work Phone: Start: 01-12-2025 End: 01-12-2025 ambulatory Alejo Fletcher Facility:[facility] Start: 01-09-2025 End: 01-09-[address] Alejo Fletcher MD Work Phone: [facility] Work Phone: Start: 01-09-2025 End: 01-09-[address] Arlette Storey DO -Laboratory Work Phone: Start: 01-09-2025 End: 01-09-2025 ambulatory Alejo Fletcher Facility:[facility] Start: 01-06-2025 End: 01-06-2025 Chart abstracting Jimmy Dillard MA [facility] Comment on above: Results (Outside lab s /) Start: 01-04-2025 End: 01-04-[address] Alejo Fletcher MD Work Phone: [facility] Work Phone: Start: 01-04-2025 End: 01-04-[address] Arlette Storey DO -Laboratory Work Phone: Start: 01-04-2025 End: 01-04-2025 Chart abstracting Jimmy Dillard MA [facility] Comment on above: Results (Outside/CT) Start: 01-04-2025 End: 01-04-2025 ambulatory Arlette Storey Facility:[facility] Start: 01-01-2025 End: 01-01-[address] Alejo Fletcher MD Work Phone: [facility] Work Phone: Start: 01-01-2025 End: 01-01-[address] Avelina Rios MD -[facility], [facility] Work Phone: Start: 01-01-2025 End: 01-01-2025 ambulatory Alejo Fletcher Facility:[facility] Start: 12-31-2024 ambulatory Arlette Storey Facility: [facility] Start: 12-29-2024 End: 12-29-2024 Chart abstracting Alejo Fletcher MD Work Phone: [facility] Comment on above: Outside Nephrology Start: 12-25-2024 End: 12-25-2024 Chart abstracting Alejo Fletcher MD Work Phone: [facility] Comment on above: Outside Umdv-Nus-UIS Ordered Start: 12-23-2024 End: 01-25-2025 Telephone encounter Tana Peterson APRN.CUSTOMER DATA TECHNICIAN Work Phone: General Surgery Comment on above: Orders Start: 12-23-2024 End: 12-23-2024 ambulatory ALEJO FLETCHER Facility:[facility] Start: 12-23-2024 End: 12-23-2024 Patient encounter procedure Tnaa Eron ACCOUNT RETENTION REPRESENTATIVE.CUSTOMER DATA TECHNICIAN Work Phone: General Surgery Comment on above: Diarrhea, unspecifie d type (Primary Dx) Start: 12-23-2024 End: 12-23-[address] Arlette Storey DO -Laboratory Work Phone: Start: 12-23-2024 End: 12-23-2024 ambulatory Alejo Fletcher Facility:[facility] Start: 11-25-2024 End: 11-25-2024 ambulatory ALEJO FLETCHER Facility:[facility] Start: 11-25-2024 End: 11-25-2024 Patient encounter procedure Tanya Brar MD Work Phone: OB/Gynecology Comment on above: Encounter for gyneco logical examination (general) (routine) without abnormal findings (Primary Dx); Encounter for screening mammogram for breast cancer Start: 11-25-2024 End: 11-25-2024 Patient encounter status Tanya Brar MD Work Phone: [facility] Start: 11-07-2024 End: 11-07-2024 Emergency department patient visit Dr. Pooja Ac DO -Emergency Department Work Phone: Start: 10-15-2024 End: 10-15-2024 ambulatory Alejo Fletcher MD Work Phone: Family [facility] Comment on above: Motion Sickness Patc h for upcoming cruise Start: 08-07-2024 End: 08-07-2024 ambulatory ALEJO FLETCHER Facility:[facility] Start: 08-07-2024 End: 08-07-2024 Patient encounter procedure Tana Blair ACCOUNT RETENTION REPRESENTATIVE.CUSTOMER DATA TECHNICIAN Work Phone: General Surgery Comment on above: Collagenous colitis (Primary Dx) Start: 07-30-2024 End: 07-30-2024 E-mail encounter from caregiver Nurse Reyes [facility] Work Phone: General Surgery Start: 07-30-2024 End: 07-30-2024 Follow-up encounter Nurse Eric [facility] Work Phone: General Surgery Comment on above: Colonoscopy follow-u p Start: 07-30-2024 End: 07-30-2024 ambulatory ALEJO FLETCHER Facility:[facility] Start: 07-30-2024 End: 07-30-2024 Subsequent hospital visit by physician Marcial Davis MD Work Phone: Ambulatory Surgery Comment on above: Diarrhea, unspecifie d type [R19.7] Start: 07-30-2024 End: 07-30-2024 ambulatory Marcial Davis Facility:[facility] Start: 07-24-2024 End: 07-24-2024 ambulatory TANA PETERSON Facility:[facility] Start: 07-24-2024 End: 07-24-2024 Patient encounter procedure Tana Peterson CUSTOMER DATA TECHNICIAN Work Phone: General Surgery Comment on above: Screen for colon can cer (Primary Dx); Diarrhea, unspecified type Start: 07-08-2024 End: 07-14-2024 Telephone encounter Alejo Fletcher MD Work Phone: Family [facility] [place] Comment on above: Question; Results Start: 07-06-2024 End: 07-07-2024 Documentation procedure Mammography Coordinator [facility] Department Start: 07-06-2024 End: 07-07-2024 Letter encounter Mammography Coordinator [facility] Department Start: 07-03-2024 End: 07-03-2024 ambulatory ALEJO FLETCHER Facility:[facility] Start: 07-03-2024 End: 07-03-2024 Subsequent hospital visit by physician Screen Mammo [facility] Mammogram Comment on above: Encounter for screen ing mammogram for breast cancer [Z12.31] Start: 07-01-2024 End: 07-01-2024 Patient encounter procedure Alejo Fletcher MD Work Phone: [facility] Comment on above: Epigastric pain (Prema sukhwinder Dx); Diarrhea, unspecified type Start: 07-01-2024 End: 07-01-2024 ambulatory ALEJO FLETCHER Facility:[facility] Start: 06-28-2024 End: 06-29-2024 Refill Tanya Brar MD Work Phone: OB/Gynecology Comment on above: Refill Request Start: 03-11-2024 ambulatory Alejo holman MD Work Phone: Internal Medicine [facility] [place] Start: 01-28-2024 Telephone encounter Alejo Fletcher MD Work Phone: Family [facility] [place] Comment on above: Results Start: 01-27-2024 End: 01-27-2024 Subsequent hospital visit by physician [facility] (I-Stat) Work Phone: Cat Scan Comment on above: Ex-smoker [Z87.891] Start: 01-27-2024 Telephone encounter Xochilt frias PA-C Work Phone: [facility] [place] Comment on above: Results Start: 01-27-2024 End: 01-27-2024 Patient encounter procedure Alejo Fletcher MD Work Phone: [facility] [place] Comment on above: AK (actinic keratosi s) Start: 01-16-2024 Telephone encounter Alejo Fletcher MD Work Phone: [facility] Comment on above: Results Start: 01-15-2024 End: 01-15-2024 Patient encounter procedure Alejo Fletcher MD Work Phone: [facility] [place] Comment on above: Well adult exam (Prema sukhwinder Dx); Elevated hemoglobin A1c; Stage 3a chronic kidney disease (HCC); Pulmonary emphysema, unspecified emphysema type (HCC); Irritable bowel syndrome with diarrhea; Encounter for lipid screening for cardiovascular disease; Neoplasm of uncertain behavior of skin of chest Start: 01-15-2024 End: 01-15-2024 Patient encounter status Alejo Fletcher MD Work Phone: [facility] Work Phone: Start: 10-28-2023 End: 10-28-2023 ambulatory [facility] Work Phone: Start: 10-28-2023 End: 10-28-2023 Patient encounter procedure [facility] Work Phone: Start: 08-09-2023 End: 08-09-2023 Patient encounter procedure [facility]-Laboratory, Specimen Work Phone: Start: 08-08-2023 End: 08-08-2023 Patient encounter procedure [facility]-Laboratory, Specimen Work Phone: Start: 08-06-2023 Chart abstracting Alejo lombardo MD Work Phone: [facility] Comment on above: ext document (labs) Start: 08-06-2023 End: 08-06-2023 Patient encounter procedure [facility]-Laboratory Work Phone: Start: 07-26-2023 Chart abstracting Alejo lombardo MD Work Phone: [facility] Start: 07-26-2023 End: 07-26-2023 ambulatory [facility] Work Phone: Start: 07-26-2023 End: 07-26-2023 Patient encounter procedure [facility]-Laboratory Work Phone: Start: 04-17-2023 Chart abstracting Alejo lombardo MD Work Phone: [facility] Comment on above: Results Start: 04-02-2023 End: 04-02-2023 ambulatory [facility] Work Phone: Start: 04-02-2023 End: 04-02-2023 Patient encounter procedure [facility]-Cat Scan, [facility] Start: 03-28-2023 End: 03-28-2023 Admission to same day surgery center [facility]-Surgical Day Care Start: 02-27-2023 Chart abstracting Alejo lombardo MD Work Phone: [facility] Comment on above: XRay Report Start: 02-22-2023 End: 02-22-2023 Patient encounter procedure [facility]-Radiology, [place] Start: 02-14-2023 Chart abstracting Alejo lombardo MD Work Phone: [facility] Comment on above: Results Start: 02-07-2023 Documentation procedure Mammog nichol Coordinator [facility] Start: 02-07-2023 Letter encounter Mammography Coordinator [facility] Department Start: 02-07-2023 Telephone encounter Jia myers APRN.CNP Work Phone: Family [facility] Comment on above: Results Start: 02-07-2023 End: 02-07-2023 Admission to same day surgery center [facility]-Surgical Day Care Start: 02-07-2023 End: 02-07-2023 ambulatory [facility] Work Phone: Start: 02-06-2023 End: 02-06-2023 Patient encounter procedure Tanya Brar MD Work Phone: OB/Gynecology Comment on above: Encounter for gyneco logical examination with abnormal finding (Primary Dx); Encounter for screening mammogram for breast cancer; Lichen sclerosus et atrophicus Start: 02-06-2023 End: 02-06-2023 Patient encounter status Tanya Brar MD Work Phone: OB/Gynecology Start: 02-06-2023 End: 02-06-2023 Subsequent hospital visit by physician Screen Mammo [facility] Mammogram Comment on above: Encounter for screen ing mammogram for malignant neoplasm of breast [Z12.31] Start: 01-18-2023 End: 01-18-2023 ambulatory [facility] Work Phone: Start: 01-18-2023 End: 01-18-2023 Patient encounter procedure [facility]-Radiology, [place] Start: 12-25-2022 End: 12-25-2022 Emergency department patient visit [facility]-Emergency Department Start: 08-10-2022 Telephone encounter Jimmy Dillard MA [facility] Comment on above: Appointment Start: 08-09-2022 ambulatory Alejo holman MD Work Phone: Family [facility] Comment on above: Stop Smoking assitsa nce Start: 06-28-2022 End: 06-28-2022 ambulatory [facility] Work Phone: Start: 06-28-2022 End: 06-28-2022 Patient encounter procedure [facility]-Laboratory, Specimen Start: 06-27-2022 End: 06-27-2022 Patient encounter procedure [facility]-Laboratory, Specimen Start: 06-26-2022 End: 06-26-2022 Patient encounter procedure [facility]-Laboratory Start: 04-02-2022 Telephone encounter Alejo Fletcher MD Work Phone: [facility] Comment on above: Patient Question Start: 02-06-2022 Documentation procedure Mammog nichol Coordinator [facility] Start: 02-06-2022 Letter encounter Mammography Coordinator [facility] Department Start: 02-06-2022 Telephone encounter Alejo Fletcher MD Work Phone: [facility] Comment on above: Results Start: 02-06-2022 End: 02-06-2022 Patient encounter status Screen [facility] Mammogram Start: 02-06-2022 End: 02-06-2022 Subsequent hospital visit by physician Screen Mammo [facility] Mammogram Comment on above: Encounter for gyneco logical examination (general) (routine) without abnormal findings [Z01.419] Start: 02-05-2022 End: 02-05-2022 Patient encounter procedure Tanya Brar MD Work Phone: OB/Gynecology Comment on above: Encounter for gyneco logical examination (general) (routine) without abnormal findings; Encounter for screening mammogram for breast cancer Start: 02-05-2022 End: 02-05-2022 Patient encounter status Tanya Brar MD Work Phone: OB/Gynecology Start: 02-03-2022 End: 02-03-2022 Patient encounter procedure Alejo Fletcher MD Work Phone: [facility] [place] Comment on above: Well adult exam (Prema sukhwinder Dx); Pulmonary emphysema, unspecified emphysema type (HCC); Stage 3 chronic kidney disease, unspecified whether stage 3a or 3b CKD (HCC); Irritable bowel syndrome with diarrhea; Lung nodule; Ex-smoker; Lung nodules; Screening for diabetes mellitus (DM); Encounter for lipid screening for cardiovascular disease Start: 02-03-2022 End: 02-03-2022 Patient encounter status Alejo Fletcher MD Work Phone: [facility] Start: 10-29-2017 Patient encounter status Gianna Fletcher MD Work Phone: [facility] Work Phone: Procedures Date Procedure Procedure Detail Performing Clinician Start: 04-01-2025 Radionuclide imaging of perfusion of myocardium under exercise stress Dr. Alejo Fletcher MD Work Phone: Start: 03-25-2025 Serum inorganic phos phate measurement Dr. Alejo Fletcher MD Work Phone: Start: 03-09-2025 Evaluation of diagno stic study results Dr. Alejo Fletcher MD Work Phone: Start: 02-12-[address] Luciana Fletcher MD Work Phone: Start: 01-27-2025 Hepatitis C antibody measurement Dr. Alejo Fletcher MD Work Phone: Comment on above: Reactive: Presumptiv e evidence of antibodies to HCV. Follow CDC recommendations for supplemental testing.Non-Reactive: Antibodies to HCV were not detected; does not exclude the possibility of exposure to HCVReactive Results are presumptive evidence of antibodies to HCV. Follow CDC recommendations for supplemental testing.Order confirmation testing: HCV Quant by PCR testing - HCVPCR lc#[id number] Non Reactive: < 0.8 Equivocal: >/= 0.8 to < 1.0 Reactive: >/= 1.0The CDC requires that a reactive/equivocal HCV antibody result be sent out for confirmation. HCV Quant by PCR testing. Start: 01-27-2025 Vitamin D, 25-hydrox y measurement Dr. Alejo Fletcher MD Work Phone: Comment on above: Vitamin D StatusDefi ciency: <20 ng/mL (50nmol/L)Insufficiency: 20-30 ng/mL (50-75 nmol/L)Sufficiency: 30-100 ng/mL (75-250 nmol/L)Toxicity: >100 ng/mL (>250 nmol/L) Start: 01-04-2025 24 hour urine chlori de output Dr. Alejo Fletcher MD Work Phone: Start: 01-04-2025 24 hour urine potass ium output measurement Dr. Alejo Fletcher MD Work Phone: Start: 01-04-2025 Potassium measurement, urine Dr. Alejo Fletcher MD Work Phone: Start: 01-01-2025 CT of abdomen and pe lvis without contrast Dr. Alejo Fletcher MD Work Phone: Start: 12-23-2024 Assay of phosphorus inorganic Dr. Alejo Fletcher MD Work Phone: Start: 12-23-2024 Measurement of renal function Dr. Alejo Fletcher MD Work Phone: Comment on above: GFR Calc Start: 11-07-2024 CT of abdomen and pe lvis without contrast Dr. Alejo Fletcher MD Work Phone: Start: 07-30-2024 Colonoscopy flx dx w /collj spec when pfrmd Tana Peterson ACCOUNT RETENTION REPRESENTATIVE.CUSTOMER DATA TECHNICIAN Work Phone: Start: 07-30-2024 Colonoscopy Nurse Wstr Work Phone: Start: 01-20-2024 Lipid 1996 panel - S alla or Plasma Alejo Fletcher MD Work Phone: Start: 10-28-2023 Diagnostic radiograp hy of abdomen Start: 04-02-2023 CT of abdomen and pe lvis without contrast Start: 03-28-2023 Fluoroscopic guidance Start: 02-22-2023 Diagnostic radiograp hy of abdomen Start: 02-07-2023 Extracorporeal shock wave lithotripsy Start: 02-06-2023 End: 02-06-2023 Mammography Jia Alvarado ACCOUNT RETENTION REPRESENTATIVE.CUSTOMER DATA TECHNICIAN Work Phone: Start: 01-18-2023 Diagnostic radiograp hy of abdomen Start: 12-25-2022 CT of abdomen and pe lvis without contrast Start: 02-06-2022 End: 02-06-2022 Mammography Tanya Brar MD Work Phone: Start: 02-03-2022 Lipid 1996 panel - S alla or Plasma Alejo Fletcher MD Work Phone: Start: 02-02-2022 Adult depression scr eening assessment Alejo Fletcher MD Work Phone: Start: 10-27-2015 Colonoscopy Alejo lombardo MD Work Phone: Start: 08-31-2015 Mammography Alejo lombardo MD Work Phone: Plan of Treatment Date Care Activity Detail Author Start: 07-30-2034 Screening for malign ant neoplasm of colon [facility] Start: 01-19-2029 Lipid panel Lipid Screening [facility] Start: 01-09-2029 Pneumococcal vaccination Pneum ococcal Vaccine (1 of 2 - PCV) [facility] Comment on above: Postponed from 12/05 (Postponed To Appropriate Date) Start: 02-03-2027 Lipid 1996 panel - S alla or Plasma Lipid Screening [facility] Start: 02-03-2027 Lipid panel Lipid Screening [facility] Start: 02-03-2027 LIPID SCREEN LIPID SCREEN [facility] Start: 01-19-2027 Diabetes Screening Diabetes Screenin g [facility] Start: 02-03-2026 LIPID SCREEN LIPID SCREEN [facility] Start: 01-17-2026 Urine microalbumin profile [facility] Start: 11-26-2025 End: 11-26-2025 Patient encounter procedure Mammogram Comment on above: mammo annual Start: 10-27-2025 Colonoscopy COLONOSCOPY [facility] Start: 10-27-2025 COLORECTAL CANCER SCREENING COLORECTAL CANCER SCREENING [facility] Start: 10-27-2025 Screening for malign ant neoplasm of colon [facility] Start: 07-03-2025 Screening for malign ant neoplasm of breast Mammogram Screening [facility] Start: 07-01-2025 Annual PCP Team Cardiovascular Technologist greg Disease Visit Annual PCP Team Chronic Disease Visit [facility] Start: 02-03-2025 DIABETES SCREEN DIABETES SCREEN [facility] Start: 02-03-2025 Diabetes Screening Diabetes Screenin g [facility] Start: 01-26-2025 Annual PCP Team Cardiovascular Technologist greg Disease Visit Annual PCP Team Chronic Disease Visit [facility] Start: 01-19-2025 Complete blood count Hemoglobin/Santiago tocrit [facility] Start: 01-19-2025 Creatinine measurement Serum Creatin ine [facility] Start: 01-15-2025 End: 01-15-2025 Patient encounter procedure 01/15/2025 8:00 AM EST Office Visit [facility] [address] [place] [address] Alejo Fletcher MD [address] [place], [place] [id number] Physical [facility] Comment on above: Physical Start: 01-14-2025 Annual PCP Team Cardiovascular Technologist greg Disease Visit Annual PCP Team Chronic Disease Visit [facility] Start: 01-14-2025 Covid-19 Vaccine ( season) Covid-19 Vaccine ( season) [facility] Comment on above: Postponed from 07/12 (Declined at this time) Start: 01-14-2025 RSV Vaccine (1 - 1-d ose 60+ series) RSV Vaccine (1 - 1-dose 60+ series) [facility] Comment on above: Postponed from 12/05 (Insurance Coverage) Start: 01-14-2025 RSV Vaccine (1 - Ris k 60-74 years 1-dose series) RSV Vaccine (1 - Risk 60-74 years 1-dose series) [facility] Comment on above: Postponed from 12/05 (Insurance Coverage) Start: 01-14-2025 Shingrix Vaccine (1 of 2) Morgan grix Vaccine (1 of 2) [facility] Comment on above: Postponed from 12/05 (Insurance Coverage) Start: 11-25-2024 End: 11-25-2024 Patient encounter procedure OB/Gynecology Comment on above: annual Start: 11-10-2024 Depression Assessment Depression Ass essment [facility] Comment on above: Postponed from 11/11 (Declined at this time) Start: 11-07-2024 [facility] Start: 08-07-2024 End: 08-07-2024 Patient encounter procedure 08/07/2024 8:00 AM EDT Office Visit General Surgery [address] [place], [place] [id number] Tana Peterson APRN.CUSTOMER DATA TECHNICIAN [address] [place], [place] [id number] 07-30 Colon follow up General Surgery Comment on above: 07-30 Colon follow u p Start: 07-30-2024 End: 07-30-2024 Patient encounter procedure 07/30/2024 8:00 AM EDT Appointment Ambulatory Surgery [address] [place] [address] Marcial Davis MD [address] [place] [address] 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 Comment on above: 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 Start: 07-03-2024 End: 07-03-2024 Patient encounter procedure 07/03/2024 7:30 AM EDT Appointment Mammogram [address] [place] [address] Mammogram Start: 07-01-2024 End: 07-01-2024 Patient encounter procedure 07/01/2024 7:20 PM EDT Office Visit Family Medicine Nicole [address] [place] [address] Alejo Fletcher MD [address] [place] [address] Chronic Diarrhea and lightheadedness [facility] Comment on above: Chronic Diarrhea and lightheadedness Start: 07-01-2024 End: 09-30-2024 Amylase [Enzymatic activity/volume] in Serum or Plasma AMYLASE Lab Routine Epigastric pain Expected: 07/01/2024, Expires: 09/30/2024 [facility] Comment on above: Expected: 07/01/2024 , Expires: 09/30/2024 Start: 07-01-2024 End: 09-30-2024 Helicobacter pylori IgG Ab [Presence] in Serum or Plasma by Immunoassay H PYLORI IGG AB Lab Routine Epigastric pain Expected: 07/01/2024, Expires: 09/30/2024 [facility] Comment on above: Expected: 07/01/2024 , Expires: 09/30/2024 Start: 07-01-2024 End: 09-30-2024 Hepatic function 2000 panel - Serum or Plasma HEPATIC FUNCTION PNL Lab Routine Epigastric pain Expected: 07/01/2024, Expires: 09/30/2024 [facility] Work Phone: Comment on above: Expected: 07/01/2024 , Expires: 09/30/2024 Start: 07-01-2024 End: 09-30-2024 Lipase [Enzymatic activity/volume] in Serum or Plasma LIPASE Lab Routine Epigastric pain Expected: 07/01/2024, Expires: 09/30/2024 [facility] Comment on above: Expected: 07/01/2024 , Expires: 09/30/2024 Start: 07-01-2024 End: 09-30-2024 Thyrotropin [Units/volume] in Serum or Plasma THYROID STIMULATING HORMONE Lab Routine Diarrhea, unspecified type Expected: 07/01/2024, Expires: 09/30/2024 [facility] Comment on above: Expected: 07/01/2024 , Expires: 09/30/2024 Start: 05-10-2024 Influenza vaccination Influenza Vacc ine (#1) [facility] Comment on above: Postponed from 07/12 (Not Currently Available) Start: 02-10-2024 End: 05-11-2024 Basic metabolic 2000 panel - Serum or Plasma BASIC METABOLIC PNL Lab Routine Stage 3a chronic kidney disease (HCC) Expected: 02/10/2024, Expires: 05/11/2024 [facility] Work Phone: Comment on above: Expected: 02/10/2024 , Expires: 05/11/2024 Start: 02-07-2024 Mammography [facility] Start: 02-07-2024 Screening for malign ant neoplasm of breast Mammogram Screening [facility] Start: 02-04-2024 DIABETES SCREEN DIABETES SCREEN [facility] Start: 01-15-2024 End: 04-15-2024 CBC W Auto Differential panel - Blood CBC + DIFF Lab Routine Stage 3a chronic kidney disease (HCC) Expected: 01/15/2024, Expires: 04/15/2024 [facility] Work Phone: Comment on above: Expected: 01/15/2024 , Expires: 04/15/2024 Start: 01-15-2024 End: 04-15-2024 Comprehensive metabolic 2000 panel - Serum or Plasma COMP METABOLIC PANEL Lab Routine Stage 3a chronic kidney disease (HCC) Expected: 01/15/2024, Expires: 04/15/2024 [facility] Work Phone: Comment on above: Expected: 01/15/2024 , Expires: 04/15/2024 Start: 01-15-2024 End: 04-15-2024 Hemoglobin A1c in Blood HGB A1C Lab Routine Elevated hemoglobin A1c Expected: 01/15/2024, Expires: 04/15/2024 [facility] Work Phone: Comment on above: Expected: 01/15/2024 , Expires: 04/15/2024 Start: 01-15-2024 End: 04-15-2024 LIPID PANEL, NONFASTING LIPID PANEL, NONFASTING Lab Routine Well adult exam Encounter for lipid screening for cardiovascular disease Expected: 01/15/2024, Expires: 04/15/2024 [facility] Work Phone: Comment on above: Expected: 01/15/2024 , Expires: 04/15/2024 Start: 01-15-2024 End: 04-15-2024 Urinalysis complete panel - Urine URINALYSIS, WITH MICROSCOPIC Lab Routine Stage 3a chronic kidney disease (HCC) Expected: 01/15/2024, Expires: 04/15/2024 [facility] Work Phone: Comment on above: Expected: 01/15/2024 , Expires: 04/15/2024 Start: 2023 RSV Vaccine (1 - Ris k 60-74 years 1-dose series) RSV Vaccine (1 - Risk 60-74 years 1-dose series) [facility] Start: 07-12-2023 Covid-19 Vaccine (2022- season) Covid-19 Vaccine (2022- season) [facility] Start: 07-12-[address] [facility] Start: 03-28-2023 Anes trurl fragmntj manj&/rmvl ureteral calculus ANESTH STONE REMOVAL [facility] Start: 03-28-2023 Cysto w/ureteroscopy w/rmvl/manj stones CYSTOURETERO W/STONE REMOVE [facility] Start: 03-28-2023 Cysto/uretero w/lithotripsy &indwell stent insrt CYSTO/URETERO W/LITHOTRIPSY [facility] Start: 03-28-2023 Patient discharge [facility] Start: 02-07-2023 Anes lithotrp xtrcor p shock wave w/o water bath ANESTH KIDNEY STONE DESTRUCT [facility] Start: 02-07-2023 Lithotripsy xtrcorp shock wave FRAGMENTING OF KIDNEY STONE [facility] Start: 02-07-2023 Patient discharge [facility] Start: 02-06-2023 Mammography MAMMOGRAM [facility] Start: 02-03-2023 ANNUAL PCP TEAM BIOMEDICAL ENGINEERING TECHNOLOGIST GREG DISEASE VISIT ANNUAL PCP TEAM CHRONIC DISEASE VISIT [facility] Start: 02-03-2023 Complete blood count Hemoglobin/Santiago tocrit [facility] Start: 02-03-2023 Creatinine measurement Serum Creatin ine [facility] Start: 02-03-2023 HEMOGLOBIN/HEMATOCRIT HEMOGLOBIN/HEM ATOCRIT [facility] Start: 02-03-2023 SERUM CREATININE SERUM CREATININE Cl [facility] Start: 02-02-2023 Adult depression screening assessment DEPRESSION SCREENING [facility] Start: 11-11-2022 DEPRESSION ASSESSMENT DEPRESSION ASS ESSMENT [facility] Start: 11-08-2022 End: 03-05-2023 Ct thorax w/o contrast material CT CHEST WO IVCON Radiology Routine Lung nodule Ex-smoker Lung nodules Expected: 11/08/2022, Expires: 03/05/2023 [facility] Work Phone: Comment on above: Expected: 11/08/2022 , Expires: 03/05/2023 Start: 07-12-2022 Influenza vaccination INFLUENZA (#1) [facility] Start: 02-03-2022 End: 04-05-2022 CBC W Auto Differential panel - Blood [facility] Work Phone: Comment on above: Expected: 02/03/2022 , Expires: 04/05/2022 Start: 02-03-2022 End: 04-05-2022 Comprehensive metabolic 2000 panel - Serum or Plasma [facility] Work Phone: Comment on above: Expected: 02/03/2022 , Expires: 04/05/2022 Start: 02-03-2022 End: 04-05-2022 Hemoglobin A1c/Hemoglobin.total in Blood [facility] Work Phone: Comment on above: Expected: 02/03/2022 , Expires: 04/05/2022 Start: 02-03-2022 HEMOGLOBIN/HEMATOCRIT HEMOGLOBIN/HEM ATOCRIT [facility] Start: 02-03-2022 End: 04-05-2022 LIPID PANEL, NONFASTING [facility] Work Phone: Comment on above: Expected: 02/03/2022 , Expires: 04/05/2022 Start: 02-03-2022 Mammography MAMMOGRAM [facility] Comment on above: Postponed from 08/31 (Declined at this time) Start: 02-03-2022 SERUM CREATININE SERUM CREATININE Cl [facility] Start: 02-03-2022 SHINGRIX VACCINE (1 of 2) MORGAN GRIX VACCINE (1 of 2) [facility] Comment on above: Postponed from 12/05 (Insurance Coverage) Start: 11-11-2021 DEPRESSION ASSESSMENT DEPRESSION ASS ESSMENT [facility] Start: 07-08-2021 COVID-19 VACCINE (2 - Booster for Aixa series) COVID-19 VACCINE (2 - Booster for Aixa series) [facility] Start: 08-31-2016 Mammography MAMMOGRAM [facility] Start: 2013 SHINGRIX VACCINE (1 of 2) MORGAN GRIX VACCINE (1 of 2) [facility] Start: 04-09-2009 FECAL OCCULT BLOOD FECAL OCCULT BLOO D [facility] Start: 04-09-2009 Screening for malign ant neoplasm of colon Fecal Occult Blood [facility] Start: 2008 COLOGUARD (FIT-DNA) COLOGUARD (FIT-D NA) [facility] Start: [address] COLONOGRAPHY [facility] Start: 2008 Screening for malign ant neoplasm of colon [facility] Start: 2008 SIGMOIDOSCOPY SIGMOIDOSCOPY [facility] Start: 1993 Zoledronic acid therapy ALPHA- 1 ANTITRYPSIN DEFICIENCY SCREENING [facility] Start: 1982 Pneumococcal Vaccine : 50+ (1 of 2 - PCV) Pneumococcal Vaccine: 50+ (1 of 2 - PCV) [facility] Start: 1981 Anxiety Screening Anxiety Screening [facility] Start: 1981 Depression Screening Depression Scre ening [facility] Start: 1969 PNEUMOCOCCAL (1 - PCV) PNEUMOCOCCAL (1 - PCV) [facility] Start: 1969 Pneumococcal vaccination Pneum ococcal Vaccine (1 - PCV) [facility] Start: 1965 HEPATITIS B (1 of 3 - 3-dose series) HEPATITIS B (1 of 3 - 3-dose series) [facility] Citrate [Mass/volume ] in Urine [facility] Work Phone: Citrate measurement [facility] Work Phone: End: 02-14-2025 CT Chest WO contrast CT CHEST WO IVCON Radiology Routine Ex-smoker Lung nodule Lung nodules 1 Occurrences starting 01/16/2024 until 02/14/2025 [facility] Work Phone: Comment on above: 1 Occurrences starti ng 01/16/2024 until 02/14/2025 CT Chest WO contrast CT CHEST WO IVCON Radiology Routine Ex-smoker Lung nodule Lung nodules 01/27/2024 2:50 PM EDT [facility] Work Phone: End: 12-25-2025 DBT Breast - bilateral screening MEAGHAN SCREENING W ATTILA Radiology Routine Encounter for gynecological examination (general) (routine) without abnormal findings Encounter for screening mammogram for breast cancer 1 Occurrences starting 11/25/2024 until 12/25/2025 [facility] Work Phone: Comment on above: 1 Occurrences starti ng 11/25/2024 until 12/25/2025 ENTERIC BACTERIAL PA TALISHA BY PCR ENTERIC BACTERIAL PANEL BY PCR Lab Routine Diarrhea, unspecified type Ordered: 07/01/2024 [facility] Comment on above: Ordered: 07/01/2024 FAT, FECAL QUAL FAT, FECAL QUAL Lab Routine Diarrhea, unspecified type Ordered: 07/01/2024 [facility] Comment on above: Ordered: 07/01/2024 FECAL LACTOFERRIN/LEUKOCYTES FECAL LACTOFERRIN/LEUKOCYTES Lab Routine Diarrhea, unspecified type Ordered: 07/01/2024 [facility] Comment on above: Ordered: 07/01/2024 End: 07-24-2025 Flexible sigmoidoscopy study COLONOSCOPY DIAGNOSTIC Endoscopy Routine Diarrhea, unspecified type Screen for colon cancer 1 Occurrences starting 07/24/2024 until 07/24/2025 [facility] Work Phone: Comment on above: 1 Occurrences starti ng 07/24/2024 until 07/24/2025 Giardia lamblia+Cryptosporidium sp Ag [Presence] in Stool by Immunoassay CRYPTOSPORIDIUM AND GIARDIA ANTIGENS BY EIA Microbiology Routine Diarrhea, unspecified type Ordered: 07/01/2024 [facility] Comment on above: Ordered: 07/01/2024 End: 03-07-2024 MEAGHAN SCREENING MEAGHAN SCREENING Radiology Routine Encounter for screening mammogram for breast cancer 1 Occurrences starting 02/06/2023 until 03/07/2024 [facility] Work Phone: Comment on above: 1 Occurrences starti ng 02/06/2023 until 03/07/2024 End: 04-10-2025 MG Breast Screening MEAGHAN SCREENING Radiology Routine Encounter for screening mammogram for breast cancer 1 Occurrences starting 03/11/2024 until 04/10/2025 [facility] Work Phone: Comment on above: 1 Occurrences starti ng 03/11/2024 until 04/10/2025 MG Breast Screening MEAGHAN SCREENIN G Radiology Routine Encounter for screening mammogram for breast cancer 07/03/2024 7:32 AM EDT [facility] Work Phone: Patient Education [facility] Work Phone: Patient referral [facility] Work Phone: Radionuclide imaging of perfusion of myocardium under exercise stress [facility] End: 03-07-2023 Screening mammography bi 2-view breast inc cad MEAGHAN SCREENING Radiology Routine Encounter for gynecological examination (general) (routine) without abnormal findings Encounter for screening mammogram for breast cancer 1 Occurrences starting 02/05/2022 until 03/07/2023 [facility] Work Phone: Comment on above: 1 Occurrences starti ng 02/05/2022 until 03/07/2023 [facility] Immunizations Immunization Date Immunization Notes Care Provider Riaz jurado 09-06-2021 influenza virus vaccine, unspecified formulation Tanya Brar MD Work Phone: [facility] Work Phone: 05-13-2021 COVID-19 vaccine (AIXA) Alejo Fletcher MD Work Phone: [facility] 09-28-2020 influenza, seasonal, injectable Alejo Fletcher MD Work Phone: [facility] 08-25-2017 influenza virus vaccine, unspecified formulation Alejo Fletcher MD Work Phone: [facility] 01-18-2016 tetanus toxoid, redu calvin diphtheria toxoid, and acellular pertussis vaccine, adsorbed Alejo Fletcher MD Work Phone: [facility] 08-02-2015 influenza, injectabl e, quadrivalent, contains preservative Alejo Fletcher MD Work Phone: [facility] 09-11-2011 influenza virus vaccine, unspecified formulation Alejo Fletcher MD Work Phone: [facility] 05-11-2003 tetanus toxoid, redu calvin diphtheria toxoid, and acellular pertussis vaccine, adsorbed Alejo Fletcher MD Work Phone: [facility] Payers Date Payer Category Payer Private Health Insurance [id number] 2024 Private Health Insurance [id number] 2024 Self-pay [id number] 2019 Unknown [employer] PPO [id number] 2019-Present [phone] [address] [place] [address] PPO [id number] 2019 Unknown [employer] PPO [id number] 2019-Present [phone] [address] [place] [address] PPO [id number] 2019 Unknown [id number] Private Health Insurance [id number] Unknown [id number] Unknown [id number] Unknown [id number] Unknown [id number] Unknown [id number] Unknown [id number] Unknown [id number] Unknown [id number] Unknown [id number] Unknown [id number] Unknown [id number] Unknown [id number] Unknown [id number] Unknown [id number] Social History Date Type Detail Facility Start: 03-21-2021 End: 03-01-2025 Tobacco smoking status NHIS Ex-smoker [facility] Work Phone: Start: 11-11-2000 End: 11-11-2015 History of tobacco use Current smoker [facility] Work Phone: Start: 11-11-2000 End: 11-11-2015 History of tobacco use Cigarette Smoker [facility] Work Phone: Start: 02-03-2022 End: 12-23-2024 Alcohol intake Current drinker of alcohol (finding) [facility] Start: 02-02-2022 History SDOH Alcohol Frequency 2 [facility] Start: 02-02-2022 History SDOH Alcohol Binge 1 [facility] Start: 12-21-2011 History SDOH Alcohol Comment occasional- 1-2 times per month [facility] Start: 02-02-2022 History SDOH Social Connections Phone 5 [facility] Start: 02-02-2022 History SDOH Social Connections Meetings 3 [facility] Start: 02-02-2022 History SDOH Physica l Activity DPW 6 [facility] Start: 02-02-2022 History SDOH Physica l Activity MPS 9 [facility] Start: 02-01-2021 Education 21 [facility] Start: 1965 Sex Assigned At Female [facility] Start: 01-24-2022 End: 02-05-2022 Exposure to SARS-CoV-2 (event) Not sure [facility] Start: 11-08-2021 End: 03-21-2023 Tobacco smoking status NHIS Unknown if ever smoked [facility] Start: 03-21-2021 End: 01-15-2024 Cigarettes smoked current (pack per day) - Reported 0.5 [facility] Start: 03-21-2021 End: 07-24-2024 Tobacco use and exposure Smokeless tobacco non-user [facility] Start: 02-02-2022 End: 01-15-2024 Social connection and isolation panel [facility] Do you belong to any clubs or organizations such as gnosticism groups, unions, fraternal or athletic groups, or school groups? Yes [facility] Are you now , , , , never or living with a partner? [facility] How often to you hav e a drink containing alcohol? Monthly or less [facility] How many standard drinks containing alcohol do you have on a typical day? 3 or 4 [facility] How often do you hav e 6 or more drinks on 1 occasion? Never [facility] How hard is it for y ou to pay for the very basics like food, housing, medical care, and heating Not hard at all [facility] Do you feel stress - tense, restless, nervous, or anxious, or unable to sleep at night because your mind is troubled all the time - these days [OSQ] Only a little [facility] (I/We) worried imelda er (my/our) food would run out before (I/we) got money to buy more. Never true [facility] In the past 12 month s, was there a time when you were not able to pay the mortgage or rent on time? No [facility] Start: 07-05-2020 Gender identity Identifies as female gender (finding) [facility] Start: 07-05-2020 Sexual orientation Heterosexual (karlee gage) [facility] How many standard drinks containing alcohol do you have on a typical day? 1 or 2 [facility] How often do you hav e 6 or more drinks on 1 occasion? Less than monthly [facility] Do you feel stress - tense, restless, nervous, or anxious, or unable to sleep at night because your mind is troubled all the time - these days [OSQ] To some extent [facility] Start: 01-14-2025 End: 02-18-2025 Sex Female (finding) [facility] NEGATED: Highlighted row [facility] Medical Equipment Procedure Code Equipment Code Equipment Origin al Text Equipment Identifier Dates Polymeric ureter al stent [id number] FDA Start: 03-28-2023 Goals Date Patient Goal Desired Activity /State Functional Status Date Assessment Result Facility 06-30-2014 Are you deaf, or do you have serious difficulty hearing No 06/30/2014 5:30 PM EDT Lindsey Martínez MA No [facility] 06-30-2014 Are you blind, or do you have serious difficulty seeing, even when wearing glasses No 06/30/2014 5:30 PM EDT Lindsey Martínez MA No [facility] 06-30-2014 Do you have serious difficulty walking or climbing stairs No 06/30/2014 5:30 PM EDT Lindsey Martínez MA No [facility] 06-30-2014 Do you have difficul ty dressing or bathing No 06/30/2014 5:30 PM EDT Lindsey Martínez MA No [facility] 06-30-2014 Because of a physica l, mental, or emotional condition, do you have difficulty doing errands alone such as visiting a physician's office or shopping No 06/30/2014 5:30 PM EDT Lindsey Martínez MA No [facility] Mental Status Date Assessment Result Facility 03-28-2023 Cognitive function Voice/Name [facility] Work Phone: 02-07-2023 Cognitive function Touch/Shaking [facility] Work Phone: 06-30-2014 Because of a physica l, mental, or emotional condition, do you have serious difficulty concentrating, remembering, or making decisions No 06/30/2014 5:30 PM EDT Lindsey Martínez MA No [facility] Clinical Notes 01-18-2016 to 03-09-2025 Note Date & Type Note Facility 04-29-2025 Evaluation note Diagnosis Onset Date Resolution Chronic kidney disease chronic Ap ril 2024 11:13am Coronary artery disease chronic A pril 2024 11:13am Hypertension chronic March 09, 2025 11:13am [facility] Work Phone: 1(738) 648-829704-06-2025 Radiology Diagnostic study note [facility] Imaging Services [address] [place] [address] Lung Screening MR#: [id number] Acct: [id number] Name: JUAN R MCCARTNEY Rep #: [id number] From: Pet er Peer DO PCP: Dr. Chavo Mendosa MD Status: MICHAEL PAUL Study:Low Dose CT Lung Screening Date of Exam : 02/12/25 Exam# [id number] Ordering Dr: Chavo Mendosa MD PROCEDURE: LOW DOSE CT LUNG SCREENING 02/12/2025 REASON FOR EXAM: HX OF TOBACCO USE, 20 pack years. TECHNIQUE: Low Dose CT Lung screening without contrast. Coronal and Sagittal reconstructionseries were provided. One or more dose reduction techniques were used (e.g., Automated exposure control, adjustment of the mA and/or kV according to patient size, use of iterative reconstruction technique). REFERENCE LINK: Manflu Lung-RADS RADIATION DOSE SUMMARY: CTDlvol: 2.01 mGy DLP: 65.70 mGycm COMPARISON: Prior abdomen pelvis CT exams in 2024, 2023, 2022, FINDINGS: PULMONARY NODULES: (Only nodules >3mm are reported) Nodules described below are on the 1.2 mm slice thickness series, unless otherwise specified. Pulmonary Nodules: 8 mm pleural-based nodule in the right upper lobe, 47 of 236 5 mm nodule posterior lower lobe, slice 90 of 236. 5.7 mm nodule, slice 93 of 236 7.6 mm nodule posterior medial right lower lobe, slice 95 of 236 7.5 mm nodule posterior right lower lobe, slice 95 of 236 (same slice as above). No significant left lung nodules. Lymph Nodes:Few small AP window lymph nodes are seen. Sensitivity for hilar lymph nodes is diminished due to lack of IV contrast Heart and Vasculature:Heart size is normal.. Vessels are unremarkable. Coronary Artery Calcifications: Calcifications are seen in the left main coronary artery. Lungs and Airways: Severe centrilobular emphysema pattern throughout both lobes Pleura:Unremarkable. No pleural effusions. Upper Abdomen:Limited images straight no acute pathology Bones:Unremarkable. No aggressive process. CT/Low Dose CT Lung Screening IMPRESSION: Several small right lower lobe pulmonary nodules. Coronary artery calcification (CAC) is myio-bb-obumtvzl left main coronary artery. Lung-RADS Category: 3 consider six-month follow-up low-dose CT lung Other Significant Findings: None. Reading [facility] CC: Dr. Chavo Mendosa MD ~ Stone Cutter: Signed [facility] [place]03-11-2025 NoteHNO ID: [id number] Author: VARUN RIDLEY LPN Service: ? Author Type: LICENSED NURSE Type: Progress Notes Filed: 01/19/2025 09:41 Note Text: Scan on 01/19/2025 8:32 AM by Griselda Kidd PA-C: Miscellaneous Lab [facility]03-11-2025 History of Present illness Narrative* Varun Ridley LPN - 01/19/2025 9:40 AM EDT Scan on 01/19/2025 8:32 AM by Griselda Kidd PA-C: Miscellaneous Lab documented in this encounterOhio[facility]-26-[facility]25 NoteHNO ID: [id number] Author: JIMMY DILLARD MA Service: ? Author Type: Sole Cementer Type: Progress Notes Filed: 01/06/2025 07:47 Note Text: Scan on 01/04/2025 6:05 PM by Griselda Kidd PA-C: [facility] History of Present illness Narrative* Jimmy Dillard MA - 01/06/2025 7:47 AM EST Scan on 01/04/2025 6:05 PM by Griselda Kidd PA-C: Chemistry Jimmy Dillard MA documented in this encounterOhiohealth [facility]02-24-2025 NoteHNO ID: [id number] Author: JIMMY DILLARD MA Service: ? Author Type: Sole Cementer Type: Progress Notes Filed: 01/04/2025 11:07 Note Text: Scan on 01/01/2025 2:26 PM by Griselda Kidd PA-C: CT Scan Jimmy Dillard [facility]02-24-2025 History of Present illness Narrative* Jimmy Dillard MA - 01/04/2025 11:07 AM EST Scan on 01/01/2025 2:26 PM by Grieslda Kidd PA-C: CT Scan Jimmy Dillard MA documented in this encounterOhiohealth [facility]02-21-2025 Radiology Diagnostic study note [facility] Imaging Services [address] [place] [id number] Abdomen/Pelvis without Cont MR#: [id number] Acct: [id number] Name: JUAN R MCCARTNEY Rep #: [id number] : 1965 F 59 From: Wero Estrada MD PCP: Dr. Alejo Fletcher MD Status: REG CLI Study:Abdomen/Pelvis without Cont Date of Exa m: 01/01/25 Exam# [id number] Ordering Dr: Avelina Rios MD PROCEDURE: ABDOMEN/PELVIS WITHOUT CONT REASON FOR EXAM: History of bilateral renal calculi. Follow-up examination. TECHNIQUE: Abdomen and pelvis CT without intravenous contrast. No oral contrast.. Multipleaxial tomographic images were obtained without intravenous contrast administration. Coronal and sagittal reconstruction was obtained as well. COMPARISON: 1 FINDINGS: Noncontrast technique limits evaluation of the abdominal and pelvic viscera. Lung bases: Clear Liver: Unremarkable. Gallbladder: Unremarkable. Spleen: Unremarkable. Pancreas: Unremarkable. Adrenals: Unremarkable. Kidneys: Tiny nonobstructive left intrarenal calculi. Tiny nonobstructive rightintrarenal calculi in the mid and lower pole calices. No evidence of the ureteral calcification or hydronephrosis. Bladder: Unremarkable. Reproductive Organs: Prior hysterectomy. Adnexal regions are unremarkable. Bowel: Unremarkable. Appendix: Normal. Lymph nodes: No suspicious lymph node enlargement. Vasculature: Major vascular structures are unremarkable. Peritoneum / Retroperitoneum: No ascites. No free air. Bones: Straightening of the normal lumbar lordosis. CT/Abdomen/Pelvis without Cont IMPRESSION: Stable small nonobstructive bilateral intrarenal calculi. No evidence of ureteral obstruction. No evidence of hydronephrosis. One or more dose reduction techniques were used (e.g., Automated exposure control, adjustment of the mA and/or kV according to patient size, use of iterative reconstruction technique). Reading Location: [place] [address] CC: Dr. Avelina Rios MD; Dr. Alejo Fletcher MD ~ Stone Cutter: Signed [facility] [place]02-18-2025 NoteHNO ID: [id number] Author: VARUN RIDLEY LPN Service: ? Author Type: LICENSED NURSE Type: Progress Notes Filed: 12/29/2024 11:41 Note Text: Scan on 12/29/2024 10:09 AM by Griselda Kidd PA-C: [facility] History of Present illness Narrative* Varun Ridley LPN - 12/29/2024 11:40 AM EST Scan on 12/29/2024 10:09 AM by Griselda Kidd PA-C: Consultation - Nephrology/Renal documented in this encounterOhiohealth [facility]02-14-2025 NoteHNO ID: [id number] Author: VARUN RIDLEY LPN Service: ? Author Type: LICENSED NURSE Type: Progress Notes Filed: 12/25/2024 07:30 Note Text: Scan on 12/23/2024 5:40 PM by Griselda Kidd PA-C: [facility] History of Present illness Narrative* Varun Ridley LPN - 12/25/2024 7:30 AM EST Scan on 12/23/2024 5:40 PM by ProviderGriselda PA-C: Chemistry documented in this encounterOhiohealth [facility]02-12-2025 Telephone encounter Note * Telephone Encounter - Joel Acosta - 12/23/2024 10:56 AM EST Patient asking for her Gastro referral to be faxed over to [facility]. Please review. Joel Acosta December 23, 2024 10:57 AM [facility]02-12-2025 Miscellaneous Notes* Telephone Encounter - Joel Acosta - 12/23/2024 10:56 AM EST Patient asking for her Gastro referral to be faxed over to [facility]. Please review. Joel Acosta December 23, 2024 10:57 AM documented in this encounterOhiohealth [facility]02-12-2025 History of Present illness Narrative* Tana Peterson APRN.CUSTOMER DATA TECHNICIAN - 12/23/2024 9:30 AM EST HISTORY AND PHYSICAL Cecia Rashida Pollack 1965 REFERRING PHYSICIAN: No ref. provider found CHIEF COMPLAINT: Diarrhea HPI: The patient is a 59 year old female with a complaint of watery diarrhea. Cecia underwent colonoscopy in July for diarrhea and fecal leukocytes. She was found to have collagenous colitis on random colon biopsy. At the time of follow up, one week later, her symptoms had resolved. She did c/o soft stools but noted improvement and did not want to pursue prescription treatment. Today she notes: diarrhea about 1 month after colonoscopy. -happening most often after 45 minutes after eating. Food group does not make a difference -diarrhea is stool & watery -tried pepto-bismol specific for diarrhea & notes no improvement and that it only turned her stools dark. -takes a live probiotic -was told by METALLOGRAPHY TEACHER to ask about SIBO testing -notes she has recently been having some kidney issues including calculus of kidney & multiple kidney stones been following with nephrology & urology at [facility]. PAST MEDICAL HISTORY Diagnosis Date Adjustment disorder with depressed mood 01/14/2008 AK (actinic keratosis) 01/27/202401/2024: left upper chest cryo, Calculus of kidney CKD (chronic kidney disease) stage 3, GFR 30-59 ml/min ([facility]) 10/29/[address] Storey COPD (Chronic Obstructive Pulmonary Disease) 04/01/2010 Corpus luteum cyst or hematoma Decreased libido 10/19/2013 Diverticulosis of intestine without bleeding 06/24/2018 Elevated hemoglobin A1c 02/06/2022 Ex-smoker 01/18/2016 Quit 2011. Smoked for about 20 yrs up to 1 PPD History of cervical cancer 1998 Hypotestosteronism 10/19/2013 Internal hemorrhoids without mention of complication 04/27/2008 Irritable bowel syndrome 08/18/2008 Lichen sclerosus et atrophicus 2015 biopsy done Lung nodules 01/28/2024 CT 01/2024 stable compared to 2014. No more f/u needed. Neck pain 04/01/2010 Personal history of tuberculosis 12/29/2005 Was treated. Stage 3a chronic kidney disease (HCC) 10/29/[address] Storey Vertigo 04/01/2010 rare PAST SURGICAL HISTORY Procedure Laterality Date COLONOSCOPY 07/30/2024 COLONOSCOPY FLX DX W/COLLJ SPEC WHEN PFRMD 10/27/2015 Colonoscopy, repeat 10 yrs COLONOSCOPY W/BIOPSY SINGLE/MULTIPLE 04/27/2008 LITHOTRIPSY XTRCORP SHOCK WAVE 11/11/1995 Lithotripsy LITHOTRIPSY XTRCORP SHOCK WAVE Right 02/07/[address] 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 Current Outpatient Medications Medication Sig tamsulosin (FLOMAX) 0.4 mg Take 0.4 mg by mouth daily at bedtime. oxyCODONE-acetaminophen (PERCOCET) 5-325 mg tablet Take 1 tablet by mouth every 8 hours as needed. estradiol (ESTRACE) 0.01 % (0.1 mg/gram) vaginal cream Use 1 g vaginally two times a week. clobetasol (TEMOVATE) 0.05 % ointment apply a pea-sized amount to vulva qhs. May use 1-2 times daily for 7-10 days prn flares. MULTIVITAMIN ORAL Take by mouth. budesonide (ORTIKOS) 9 mg capsule, extended release Take 1 capsule by mouth every morning. scopolamine (TRANSDERM-SCOP) patch 1.5 mg/72 hr (delivers 1 mg over 3 days) Apply 1 Patch as directed every [address] first patch 12 hrs before departure. (Patient not taking: Reported on 12/23/2024) No current facility-administered medications for this visit. ALLERGIES: Nitrofurantoin and Yeast, Dried PERSONAL HISTORY: Social History Tobacco Use Smoking status: Former Current packs/day: 0.00 Average packs/day: 0.5 packs/day for 15.0 years (7.5 ttl pk-yrs) Types: Cigarettes Start date: 2000 Quit date: 2016 Years since quittin.1 Smokeless tobacco: Never Vaping Use Vaping status: Never Used Substance Use Topics Alcohol use: Yes Comment: occasional- 1-2 times per month Drug use: No FAMILY HISTORY: FAMILY HISTORY Problem Relation Age of Onset Cervical Cancer Mother Diabetes Mother Hypertension Father Stroke Father Aortic and brain aneurysm 2014 Heart Father other (nephrolithiasis) Father also in Maternal aunt Diabetes Brother Hypertension Brother Breast Cancer Maternal Grandmother Coronary Artery Disease Paternal Uncle REVIEW OF SYMPTOMS: See HPI PHYSICAL EXAMINATION: General: The patient is 59 year old female, well nourished, well hydrated in no acute distress. Thepatient is oriented to time, place, and person. VITALS: Blood pressure 116/62, pulse 71, temperature 36.4 C (97.5 F), temperature source Temporal Artery, resp. rate 16, weight 53.4 kg (117 lb 12.8 oz). Body mass index is 22.08 kg/m . HEENT: Normal cephalic, ataumatic, pupils are equally round, sclera are anicteric, mucous membranesare moist, oropharynx is clear. Neck has no masses, asymmetry or lymphadenopathy. Respiratory: Clear to auscultation and percussion. Normal respiratory excursion and pattern. Cardiac: Examination is regular rate and rhythm. Normal S1/S2 Abdominal exam: Soft, nontender, with no palpable masses. No hepatosplenomegaly. No palpable hernias. Extremities: no clubbing, cyanosis or edema. No adenopathy. LABORATORY VALUES: As Noted RADIOLOGIC STUDIES: As Noted ASSESSMENT/PLAN: 1. Diarrhea, unspecified type - ICD9: 787.91, ICD10: R19.7 - Most likely microscopic colitis which she was positive for on colonoscopy biopsy. - Discussed triggers including NSAIDs and PPIs - Discussed symptom management including imodium and fiber - Start budesonide 9mg daily for 8 weeks- if too expensive or doesn't work then will refer to GI for SIBO testing Discussed treatment plan and patient voices understanding. Patient's questions answered appropriately. Medications and potential side effects were discussed and patient voices understanding. Return to the office as scheduled or as needed for worsening/no improvement. Tana Peterson APRN.EMILY documented in this encounterOhiohealth [facility]02-12-2025 NoteHNO ID: [id number] Author: TANA PETERSON APRN.EMILY Service: ? Author Type: Nurse Practitioner Type: Progress Notes Filed: 12/23/2024 10:23 Note Text: HISTORY AND PHYSICAL Abielia Rashida Pollack 1965 REFERRING PHYSICIAN: No ref. provider found CHIEF COMPLAINT: Diarrhea HPI: The patient is a 59 year old female with a complaint of watery diarrhea. Cecia underwent colonoscopy in July for diarrhea and fecal leukocytes. She was found to have collagenous colitis on random colon biopsy. At the time of follow up, one week later, her symptoms had resolved. She did c/o soft stools but noted improvement and did not want to pursue prescription treatment. Today she notes: diarrhea about 1 month after colonoscopy. -happening most often after 45 minutes after eating. Food group does not make a difference -diarrhea is stool AND watery -tried pepto-bismol specific for diarrhea AND notes no improvement and that it only turned her stools dark. -takes a live probiotic -was told by METALLOGRAPHY TEACHER to ask about SIBO testing -notes she has recently been having some kidney issues including calculus of kidney AND multiple kidney stones been following with nephrology AND urology at [facility]. PAST MEDICAL HISTORY Diagnosis Date Adjustment disorder with depressed mood 01/14/2008 AK (actinic keratosis) 01/27/202401/2024: left upper chest cryo, Calculus of kidney CKD (chronic kidney disease) stage 3, GFR 30-59 ml/min ([facility]) 10/29/[address] Storey COPD (Chronic Obstructive Pulmonary Disease) 04/01/2010 Corpus luteum cyst or hematoma Decreased libido 10/19/2013 Diverticulosis of intestine without bleeding 06/24/2018 Elevated hemoglobin A1c 02/06/2022 Ex-smoker 01/18/2016 Quit 2011. Smoked for about 20 yrs up to 1 PPD History of cervical cancer 1998 Hypotestosteronism 10/19/2013 Internal hemorrhoids without mention of complication 04/27/2008 Irritable bowel syndrome 08/18/2008 Lichen sclerosus et atrophicus 2014 biopsy done Lung nodules 01/28/2024 CT 01/2024 stable compared to 2014. No more f/u needed. Neck pain 04/01/2010 Personal history of tuberculosis 12/29/2005 Was treated. Stage 3a chronic kidney disease (HCC) 10/29/[address] Storey Vertigo 04/01/2010 rare PAST SURGICAL HISTORY Procedure Laterality Date COLONOSCOPY 07/30/2024 COLONOSCOPY FLX DX W/COLLJ SPEC WHEN PFRMD 10/27/2015 Colonoscopy, repeat 10 yrs COLONOSCOPY W/BIOPSY SINGLE/MULTIPLE 04/27/2008 LITHOTRIPSY XTRCORP SHOCK WAVE 11/11/1995 Lithotripsy LITHOTRIPSY XTRCORP SHOCK WAVE Right 02/07/[address] 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 Current Outpatient Medications Medication Sig tamsulosin (FLOMAX) 0.4 mg Take 0.4 mg by mouth daily at bedtime. oxyCODONE-acetaminophen (PERCOCET) 5-325 mg tablet Take 1 tablet by mouth every 8 hours as needed. estradiol (ESTRACE) 0.01 % (0.1 mg/gram) vaginal cream Use 1 g vaginally two times a week. clobetasol (TEMOVATE) 0.05 % ointment apply a pea-sized amount to vulva qhs. May use 1-2 times daily for 7-10 days prn flares. MULTIVITAMIN ORAL Take by mouth. budesonide (ORTIKOS) 9 mg capsule, extended release Take 1 capsule by mouth every morning. scopolamine (TRANSDERM-SCOP) patch 1.5 mg/72 hr (delivers 1 mg over 3 days) Apply 1 Patch as directed every [address] first patch 12 hrs before departure. (Patient not taking: Reported on 12/23/2024) No current facility-administered medications for this visit. ALLERGIES: Nitrofurantoin and Yeast, Dried PERSONAL HISTORY: Social History Tobacco Use Smoking status: Former Current packs/day: 0.00 Average packs/day: 0.5 packs/day for 15.0 years (7.5 ttl pk-yrs) Types: Cigarettes Start date: 2000 Quit date: 2016 Years since quittin.1 Smokeless tobacco: Never Vaping Use Vaping status: Never Used Substance Use Topics Alcohol use: Yes Comment: occasional- 1-2 times per month Drug use: No FAMILY HISTORY: FAMILY HISTORY Problem Relation Age of Onset Cervical Cancer Mother Diabetes Mother Hypertension Father Stroke Father Aortic and brain aneurysm 2014 Heart Father other (nephrolithiasis) Father also in Maternal aunt Diabetes Brother Hypertension Brother Breast Cancer Maternal Grandmother Coronary Artery Disease Paternal Uncle REVIEW OF SYMPTOMS: See HPI PHYSICAL EXAMINATION: General: The patient is 59 year old female, well nourished, well hydrated in no acute distress. The patient is oriented to time, place, and person. VITALS: Blood pressure 116/62, pulse 71, temperature 36.4 ?C (97.5 ?F), temperature source Temporal Artery, resp. rate 16, weight 53.4 kg (117 lb 12.8 oz). Body mass index is 22.08 kg/m?. HEENT: Normal cephalic, ataumatic, pupils are equally round, sclera are anicteric, mucous membranes are moist, oropharynx is clear. Neck has no masses, asymmetry or lymphadenopathy. Respiratory: Clear to auscu (more content not included)...[facility]01-15-2025 NoteHNO ID: [id number] Author: TANYA BRAR MD Service: ? Author Type: Physician Type: Progress Notes Filed: 11/25/2024 10:00 Note Text: Lead Java Programmer offered: Patient declines. Juan R is a 58 year old who presents for an annual gynecologic exam with complaints, vaginal dryness. Despite estrogen. Had pelvic floor PT. Uses OTC lubrication. Postmenopausal: yes HRT use: vaginal. Still get period: No Menopause symptoms: Vaginal dryness Time with current partner: 27 control frequency: Never HPV vaccine: No; Last pap smear: 11/18/2023 History of abnormal pap: Yes, history of abnormal PAP smears Leep: No. Cone biopsy: No. 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 Storey COPD (Chronic Obstructive Pulmonary Disease) 04/01/2010 Corpus luteum cyst or hematoma Decreased libido 10/19/2013 Diverticulosis of intestine without bleeding 06/24/2018 Elevated hemoglobin A1c 02/06/2022 Ex-smoker 01/18/2016 Quit 2011. Smoked for about 20 yrs up to 1 PPD History of cervical cancer 1998 Hypotestosteronism 10/19/2013 Internal hemorrhoids without mention of complication 04/27/2008 Irritable bowel syndrome 08/18/2008 Lichen sclerosus et atrophicus 2014 biopsy done Lung nodules 01/28/2024 CT 01/2024 stable compared to 2014. No more f/u needed. Neck pain 04/01/2010 Personal history of tuberculosis 12/29/2005 Was treated. Stage 3a chronic kidney disease (HCC) 10/29/[address] Storey Vertigo 04/01/2010 rare PAST SURGICAL HISTORY Procedure Laterality Date COLONOSCOPY 07/30/2024 COLONOSCOPY FLX DX W/COLLJ SPEC WHEN PFRMD 10/27/2015 Colonoscopy, repeat 10 yrs COLONOSCOPY W/BIOPSY SINGLE/MULTIPLE 04/27/2008 LITHOTRIPSY XTRCORP SHOCK WAVE 11/11/1995 Lithotripsy LITHOTRIPSY XTRCORP SHOCK WAVE Right 02/07/[address] 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 FAMILY HISTORY Problem Relation Age of Onset Cervical Cancer Mother Diabetes Mother Hypertension Father Stroke Father Aortic and brain aneurysm 2014 Heart Father other (nephrolithiasis) Father also in Maternal aunt Diabetes Brother Hypertension Brother Breast Cancer Maternal Grandmother Coronary Artery Disease Paternal Uncle SOCIAL HISTORY Social History Tobacco Use Smoking status: Former Current packs/day: 0.00 Average packs/day: 0.5 packs/day for 15.0 years (7.5 ttl pk-yrs) Types: Cigarettes Start date: 2000 Quit date: 2016 Years since quittin.0 Smokeless tobacco: Never Vaping Use Vaping status: Never Used Substance Use Topics Alcohol use: Yes Comment: occasional- 1-2 times per month Drug use: No REVIEW OF SYSTEMS Abdomen: No abdominal pain, nausea, vomiting, diarrhea, or constipation. No bloating, early satiety, indigestion, or increased flatulence. Bladder: No dysuria, gross hematuria, urinary frequency, urinary urgency, or incontinence Breast: No breast lumps, nipple d/c, overlying skin changes, redness or skin retraction Allergies and current medication updated:Yes SENSITIVE EXAM: The sensitive examination was discussed with the Patient or Patient's Authorized Adjudication Specialist. As applicable, any other physician, advance practice provider, medical student, or other health professional student that will be observing or involved in the sensitive examination for educational or training purposes was discussed with the Patient or Authorized Adjudication Specialist. The Patient or Authorized Adjudication Specialist has agreed to proceed with the sensitive examination. (Sensitive examination includes inspection and/or palpation of the breasts, pelvis, prostate and anorectal regions). EXAM: BP 124/62 Ht 5' 1.25 (1.56m) Wt 112 lb (50.8kg) BMI 20.98 kg/(m2). GENERAL: pleasant, female in no apparent distress HEENT: Normocephalic, atraumatic, mucus membranes moist, and no lesions NECK: Supple, full range of motion, no adenopathy, and thyroid normal DERMATOLOGY: Normal, without lesions, non-icteric, and non-hirsute BREAST: soft, non-tender, symmetric, no dominant mass, normal nipple-areolar complex, no lymphadenopathy, and no nipple discharge CHEST: Normal inspiratory effort ABDOMEN: soft, non-tender, and no masses PELVIC: normal Bartholin's glands, urethra, Erath's glands, no vulvar lesions, good vaginal support, physiologic discharge present, normal appearing perineal body and perianal (more content not included)...[facility] 11-25-2024 History of Present illness Narrative* Tanya Brar MD - 11/25/2024 9:23 AM EST Lead Java Programmer offered: Patient declines. Juan R is a 58 year old who presents for an annual gynecologic exam with complaints, vaginaldryness. Despite estrogen. Had pelvic floor PT. Uses OTC lubrication. Postmenopausal: yes HRT use: vaginal. Still get period: No Menopause symptoms: Vaginal dryness Time with current partner: 27 control frequency: Never HPV vaccine: No; Last pap smear: 11/18/2023 History of abnormal pap: Yes, history of abnormal PAP smears Leep: No. Cone biopsy: No. 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 Storey COPD (Chronic Obstructive Pulmonary Disease) 04/01/2010 Corpus luteum cyst or hematoma Decreased libido 10/19/2013 Diverticulosis of intestine without bleeding 06/24/2018 Elevated hemoglobin A1c 02/06/2022 Ex-smoker 01/18/2016 Quit 2011. Smoked for about 20 yrs up to 1 PPD History of cervical cancer 1998 Hypotestosteronism 10/19/2013 Internal hemorrhoids without mention of complication 04/27/2008 Irritable bowel syndrome 08/18/2008 Lichen sclerosus et atrophicus 2015 biopsy done Lung nodules 01/28/2024 CT 01/2024 stable compared to 2014. No more f/u needed. Neck pain 04/01/2010 Personal history of tuberculosis 12/29/2005 Was treated. Stage 3a chronic kidney disease (HCC) 10/29/[address] Raleigh Chavez 04/01/2010 rare PAST SURGICAL HISTORY Procedure Laterality Date COLONOSCOPY 07/30/2024 COLONOSCOPY FLX DX W/COLLJ SPEC WHEN PFRMD 10/27/2015 Colonoscopy, repeat 10 yrs COLONOSCOPY W/BIOPSY SINGLE/MULTIPLE 04/27/2008 LITHOTRIPSY XTRCORP SHOCK WAVE 11/11/1995 Lithotripsy LITHOTRIPSY XTRCORP SHOCK WAVE Right 02/07/[address] 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 FAMILY HISTORY Problem Relation Age of Onset Cervical Cancer Mother Diabetes Mother Hypertension Father Stroke Father Aortic and brain aneurysm 2014 Heart Father other (nephrolithiasis) Father also in Maternal aunt Diabetes Brother Hypertension Brother Breast Cancer Maternal Grandmother Coronary Artery Disease Paternal Uncle SOCIAL HISTORY Social History Tobacco Use Smoking status: Former Current packs/day: 0.00 Average packs/day: 0.5 packs/day for 15.0 years (7.5 ttl pk-yrs) Types: Cigarettes Start date: 2000 Quit date: 2016 Years since quittin.0 Smokeless tobacco: Never Vaping Use Vaping status: Never Used Substance Use Topics Alcohol use: Yes Comment: occasional- 1-2 times per month Drug use: No REVIEW OF SYSTEMS Abdomen: No abdominal pain, nausea, vomiting, diarrhea, or constipation. No bloating, early satiety, indigestion, or increased flatulence. Bladder: No dysuria, gross hematuria, urinary frequency, urinary urgency, or incontinence Breast: No breast lumps, nipple d/c, overlying skin changes, redness or skin retraction Allergies and current medication updated:Yes SENSITIVE EXAM: The sensitive examination was discussed with the Patient or Patient's Authorized Adjudication Specialist. As applicable, any other physician, advance practice provider, medical student, or other health professional student that will be observing or involved in the sensitive examination for educational or training purposes was discussed with the Patient or Authorized Adjudication Specialist. The Patient or Authorized Adjudication Specialist has agreed to proceed with the sensitive examination. (Sensitive examination includes inspection and/or palpation of the breasts, pelvis, prostate and anorectal regions). EXAM: BP 124/62 Ht 5' 1.25 (1.56m) Wt 112 lb (50.8kg) BMI 20.98 kg/(m^2). GENERAL: pleasant, female in no apparent distress HEENT: Normocephalic, atraumatic, mucus membranes moist, and no lesions NECK: Supple, full range of motion, no adenopathy, and thyroid normal DERMATOLOGY: Normal, without lesions, non-icteric, and non-hirsute BREAST: soft, non-tender, symmetric, no dominant mass, normal nipple-areolar complex, no lymphadenopathy, and no nipple discharge CHEST: Normal inspiratory effort ABDOMEN: soft, non-tender, and no masses PELVIC: normal Bartholin's glands, urethra, Erath's glands, no vulvar lesions, good vaginal support, physiologic discharge present, normal appearing perineal body and perianal region, cervix surgically absent, some thin white papery changes clitoral morgan BIMANUAL: no adnexal masses, non-tender, and uterus surgically absent RECTOVAGINAL: deferred. NEURO: alert and oriented x3,exam grossly non-focal EXTREMITIES: normal ASSESSMENT/PLAN: Trial hylaruonic acid w/ vaginal estrogen 1) Health maintenance: Pap/HPV screening no longer needed vaginal estrogn cont. treatment for lichen sclerosis prnh 2) Follow up one year or sooner as needed Tanya Brar MD documented [facility] this encounterOhio[facility] Telephone encounter Note * Telephone Encounter - Alejo Fletcher MD - 10/15/2024 4:40 PM EST The following approved medication requests have been transmitted electronically. Requested Prescriptions Signed Prescriptions Disp Refills scopolamine (TRANSDERM-SCOP) patch 1.5 mg/72 hr (delivers 1 mg over 3 days) 4 Patch 0 Sig: Apply 1 Patch as directed every [address] first patch 12 hrs before departure. Aljeo Fletcher MD [facility] Miscellaneous Notes* Telephone Encounter - Alejo Fletcher MD - 10/15/2024 4:40 PM EST The following approved medication requests have been transmitted electronically. Requested Prescriptions Signed Prescriptions Disp Refills scopolamine (TRANSDERM-SCOP) patch 1.5 mg/72 hr (delivers 1 mg over 3 days) 4 Patch 0 Sig: Apply 1 Patch as directed every [address] first patch 12 hrs before departure. Alejo Fletcher MD documented in this encounterOhio[facility]09-27-2024 History of Present illness Narrative* Tana Peterson APRN.CUSTOMER DATA TECHNICIAN - 08/07/2024 8:00 AM EDT FOLLOW UP VISIT - ENDOSCOPY Juan R Pollack 1965 [id number] REFERRING PHYSICIAN: Marcial Davis III [address] [facility] [id number] Juan R Pollack is a patient I am following for diarrhea & + fecal WBC. Dr. Davis performed lower endoscopy on 07/30/24. The patient was found to have Impression: - Diverticulosis in the sigmoid colon. - Non-bleeding internal hemorrhoids. - The entire examined colon is normal. Biopsied. - The examined portion of the ileum was normal. Biopsied. Pathology demonstrated: A. Terminal ileum, biopsy: No pathologic change B. Colon, random biopsy: Collagenous colitis See comment Comment: Trichrome stain with manage control was used in the evaluation of this case and shows thickened basal plate. The patient notes no complaints since the procedure. Cecia refers that she is no longer having diarrhea, stools a little softer and smaller than she would like, but overall have improved. VITALS: There were no vitals taken for this visit. General: patient is alert, cooperative, pleasant and in no acute distress On examination, the abdomen is benign. Assessment ASSESSMENT/PLAN: 1. Collagenous colitis - ICD9: 558.9, ICD10: K52.831 - Increase fiber & try a probiotic to help bulk up stools. - Avoid smoking & NSAID medications, PPIs - Use pepto, immodium The operative findings and pathology report were reviewed with the patient, and the patient has hadthe opportunity to ask questions and have questions answered. If the patient notes any problems or changes in bowel function, the patient should contact me immediately. Otherwise I recommend follow up endoscopy in 10 years. updated and recall letter generated. Discussed treatment plan and patient voices understanding. Patient's questions answered appropriately. Medications and potential side effects were discussed and patient voices understanding. Return to the office as scheduled or as needed for worsening/no improvement. Tana Peterson APRN.CUSTOMER DATA TECHNICIAN documented in this encounterOhiohealth Van W[facility]09-27-2024 NoteHNO ID: [id number] Author: TANA PETERSON APRN.EMILY Service: ? Author Type: Nurse Practitioner Type: Progress Notes Filed: 08/07/2024 08:18 Note Text: FOLLOW UP VISIT - ENDOSCOPY Juan R Field Nataliia Pollack 1965 [id number] REFERRING PHYSICIAN: Marcial Davis III [address] [facility] [address] Juan R Field Nataliia Kelechiberryverenice is a patient I am following for diarrhea AND + fecal WBC. Dr. Davis performed lower endoscopy on 07/30/24. The patient was found to have Impression: - Diverticulosis in the sigmoid colon. - Non-bleeding internal hemorrhoids. - The entire examined colon is normal. Biopsied. - The examined portion of the ileum was normal. Biopsied. Pathology demonstrated: A. Terminal ileum, biopsy: No pathologic change B. Colon, random biopsy: Collagenous colitis See comment Comment: Trichrome stain with manage control was used in the evaluation of this case and shows thickened basal plate. The patient notes no complaints since the procedure. Juan R refers that she is no longer having diarrhea, stools a little softer and smaller than she would like, but overall have improved. VITALS: There were no vitals taken for this visit. General: patient is alert, cooperative, pleasant and in no acute distress On examination, the abdomen is benign. Assessment ASSESSMENT/PLAN: 1. Collagenous colitis - ICD9: 558.9, ICD10: K52.831 - Increase fiber AND try a probiotic to help bulk up stools. - Avoid smoking AND NSAID medications, PPIs - Use pepto, immodium The operative findings and pathology report were reviewed with the patient, and the patient has had the opportunity to ask questions and have questions answered. If the patient notes any problems or changes in bowel function, the patient should contact me immediately. Otherwise I recommend follow up endoscopy in 10 years. HM updated and recall letter generated. Discussed treatment plan and patient voices understanding. Patient's questions answered appropriately. Medications and potential side effects were discussed and patient voices understanding. Return to the office as scheduled or as needed for worsening/no improvement. Tana Peterson APRN.CNPMercy [facility]09-19-[facility]24 Telephone encounter Note* Telephone Encounter - Brynn Stone RN - 07/30/2024 11:30 AM EDT . [facility]09-19-[facility] Miscellaneous Notes* Telephone Encounter - Brynn Stone RN - 07/30/2024 11:30 AM EDT . documented in this encounterOhiohealth [facility]09-19-2024 NoteHNO ID: [id number] Author: SHRUTI ELLER RN Service: ? Author Type: Registered Nurse Type: Nursing Progress Note Filed: 07/30/2024 09:49 Note Text: Ambulated to [facility] with assistance. Passing flatus. Denies discomfort. Shruti Eller RNMercy [facility]09-19-2024 Nurse Note* Shruti Eller RN - 07/30/2024 9:22 AM EDT Ambulated to [facility] with assistance. Passing flatus. Denies discomfort. Shruti Eller RN [facility]09-19-2024 Nurse Note* Shruti Eller RN - 07/30/2024 9:22 AM EDT Ambulated to [facility] with assistance. Passing flatus. Denies discomfort. Shruti Eller RN * Shruti Eller RN - 07/30/2024 8:31 AM EDT Arrived in phase II via cart. Left lateral position. Sedated, but responds to verbal stimuli. Colornormal; skin warm and dry. Respirations wnl and unlabored. Abdomen soft and with + bowel sounds in quads X 4. Patient resting comfortably. Family at bedside. Dr. Parson at bedside to review procedure and recommendations. Shruti Eller RN documented in this encounterOhiohealth [facility]09-19-2024 Miscellaneous Notes* Discharge Instr - Nursing - Shruti Eller RN - 07/30/2024 8:46 AM EDT The patient received a copy of Colonoscopy discharge instructions that contain information for how to contact the physician who performed the procedure and when to seek medical care.Shruti Eller RN documented in this encounterOhiohealth [facility]09-19-2024 Note* Discharge Instr - Nursing - Shruti Eller RN - 07/30/2024 8:46 AM EDT The patient received a copy of Colonoscopy discharge instructions that contain information for how to contact the physician who performed the procedure and when to seek medical care.Shruti Eller RN [facility]09-19-2024 Nurse Note* Shruti Eller RN - 07/30/2024 8:31 AM EDT Arrived in phase II via cart. Left lateral position. Sedated, but responds to verbal stimuli. Colornormal; skin warm and dry. Respirations wnl and unlabored. Abdomen soft and with + bowel sounds in quads X 4. Patient resting comfortably. Family at bedside. Dr. Parson at bedside to review procedure and recommendations. Shruti Eller RN [facility]09-19-2024 History and physical note* Marcial Davis MD - 07/30/2024 8:00 AM EDT HISTORY AND PHYSICAL Juan R Pollack : 1965 REFERRING PHYSICIAN: No referring provider defined for this encounter. CHIEF COMPLAINT: Patient presents with: Consult: Diarrhea, fecal WBC positive HPI: Juan R is a 58 year old female referred for endoscopy. Cecia notes diarrhea and positive fecal WBCs. Cecia notes upper abdominal pain. -Serum H. Pylori is positive. Cecia notes diarrhea x 4 mos- watery- stool test negative except WBCs Cecia denies constipation. Cecia notes a change in bowel habits. Cecia denies melena. Cecia denies bright red blood per rectum. Cecia denies hemorrhoids. Cecia denies heartburn. Cecia denies dysphagia. Cecia denies a history of ulcers/ peptic ulcer disease. +currently has epigastric pain- on h. Pylori tx Denies family history of colon issues. Juan R has undergone prior endoscopy. Last colonoscopy was [address] Pace at [facility]. Sedation received:Fentanyl 100 micrograms IV, Midazolam 4 mg IV Impression: - Diverticulosis in the sigmoid colon and in the descending colon. - Two 5 mm polyps at 20 cm proximal to the anus. Resected and retrieved. Pathology: CONVERTED FINAL DIAGNOSIS Colon, 20 cm, polypectomy - Fragments of hyperplastic polyp. VANI/ariana 10/28/2015 CURRENT MEDICATIONS Current Outpatient Medications Medication Sig amoxicillin (AMOXIL) 500 mg capsule Take 2 capsules by mouth two times a day for 14 days. clarithromycin XL (BIAXIN XL) 500 mg 24 hr tablet Take 1 tablet by mouth two times a day for 14 days. lansoprazole (PREVACID) 30 mg capsule Take 1 capsule by mouth two times a day for 14 days. 1/2 hr before meal. estradiol (ESTRACE) 0.01 % (0.1 mg/gram) vaginal cream Use 1 g vaginally two times a week. clobetasol (TEMOVATE) 0.05 % ointment apply a pea-sized amount to vulva qhs. May use 1-2 times daily for 7-10 days prn flares. MULTIVITAMIN ORAL Take by mouth. peg 3350-Electrolytes (GOLYTELY) 236-22.74-6.74 -5.86 gram suspension Take 4,000 mL by mouth one time only for 1 dose. Refer to printed prep instructions from your provider. No current facility-administered medications for this visit. ALLERGIES: Nitrofurantoin and Yeast, Dried PAST MEDICAL HISTORY PAST MEDICAL HISTORY Diagnosis Date Adjustment disorder with depressed mood 01/14/2008 AK (actinic keratosis) 01/27/202401/2024: left upper chest cryo, Calculus of kidney CKD (chronic kidney disease) stage 3, GFR 30-59 ml/min ([facility]) 10/29/[address] Storey COPD (Chronic Obstructive Pulmonary Disease) 04/01/2010 Corpus luteum cyst or hematoma Decreased libido 10/19/2013 Diverticulosis of intestine without bleeding 06/24/2018 Elevated hemoglobin A1c 02/06/2022 Ex-smoker 01/18/2016 Quit 2011. Smoked for about 20 yrs up to 1 PPD History of cervical cancer 1998 Hypotestosteronism 10/19/2013 Internal hemorrhoids without mention of complication 04/27/2008 Irritable bowel syndrome 08/18/2008 Lichen sclerosus et atrophicus 2015 biopsy done Lung nodules 01/28/2024 CT 01/2024 stable compared to 2014. No more f/u needed. Neck pain 04/01/2010 Personal history of tuberculosis 12/29/2005 Was treated. Stage 3a chronic kidney disease (HCC) 10/29/[address] Storey Vertigo 04/01/2010 rare PAST SURGICAL HISTORY PAST SURGICAL HISTORY Procedure Laterality Date COLONOSCOPY FLX DX W/COLLJ SPEC WHEN PFRMD 10/27/2015 Colonoscopy, repeat 10 yrs COLONOSCOPY W/BIOPSY SINGLE/MULTIPLE 04/27/2008 LITHOTRIPSY XTRCORP SHOCK WAVE 11/11/1995 Lithotripsy LITHOTRIPSY XTRCORP SHOCK WAVE Right 02/07/[address] 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 FAMILY HISTORY FAMILY HISTORY Problem Relation Age of Onset Cervical Cancer Mother Diabetes Mother Hypertension Father Stroke Father Aortic and brain aneurysm 2014 Heart Father other (nephrolithiasis) Father also in Maternal aunt Breast Cancer Maternal Grandmother Coronary Artery Disease Paternal Uncle SOCIAL HISTORY Social History Tobacco Use Smoking status: Former Current packs/day: 0.00 Average packs/day: 0.5 packs/day for 15.0 years (7.5 ttl pk-yrs) Types: Cigarettes Start date: 2000 Quit date: 2016 Years since quittin.7 Smokeless tobacco: Never Vaping Use Vaping status: Never Used Substance Use Topics Alcohol use: Yes Comment: occasional- 1-2 times per month Drug use: No REVIEW OF SYMPTOMS: REVIEW OF SYSTEMS: General: The patient denies fatigue, + weight loss, + weight gain, denies feeling hot, and feelingsof cold. Cardiovascular: The patient denies chest pain, denies heart disease, denies high blood pressure, denies high cholesterol, and denies poor circulation. Respiratory: The patient + tuberculosis, denies pneumonia, denies frequent cough, denies shortness of breath, and denies coughing up blood. Gastrointestinal: The patient denies difficulty swallowing, denies acid reflux, denies ulcers, denies jaundice/hepatitis, denies gallbladder problems, denies vomiting, denies black or tarry stools, +hemorrhoids, denies bleeding from rectum, + diverticulitis, denies constipation, + diarrhea, + lossof stool control, and denies hernias. Infections: The patient denies a history of measles, +mumps, denies rheumatic fever, and denies sexually transmitted diseases. PHYSICAL EXAMINATION: General: The patient is 58 year old, female well nourished, well hydrated in no acute distress. Thepatient is oriented to time, place, and person. VITALS: Blood pressure 143/83, pulse 71, temperature 36.4 C (97.5 F), height 157.5 cm (5' 2), weight 54 kg (119 lb), SpO2 98%. Body mass index is 21.77 kg/m . HEENT: Normal cephalic, ataumatic, pupils are equally round, sclera are anicteric, mucous membranesare moist, oropharynx is clear. Neck has no masses, asymmetry or lymphadenopathy. Respiratory: Clear to auscultation and percussion. Normal respiratory excursion and pattern. Cardiac: Examination is regular rate and rhythm. Normal S1/S2 Abdominal exam: Soft, nontender, with no palpable masses. No hepatosplenomegaly. No palpable hernias. Extremities: no clubbing, cyanosis or edema. No adenopathy. LABORATORY VALUES: As Noted RADIOLOGIC STUDIES: As Noted Assessment IMPRESSION: diarrhea, h. Pylori infection, screen for colon cancer PLAN: I have reviewed my findings with the surgeon. Will plan for lower endoscopy. We discussed therisks and benefits of the planned endoscopy. I have informed the patient that complications can occur including failure to complete the endoscopy and perforation. Juan R had the opportunity to ask questions concerning the planned endoscopy. My staff has also explained the procedure to the patient inunderstandable terms and has given the patient printed material concerning the procedure. Juan R freely consents to surgery. I plan to use Golytely bowel preparation I have explained to the patient the difference between IV conscious sedation and MAC anesthesia - and I have offered either, according to the patient's wishes. I have explained that with IV conscioussedation there is no anesthesia provider available and therefore there is a limitation of the amount of IV medications that can be given and that the patient may wake up in the middle of the procedure and/or experience pain/discomfort during the procedure. Further discussion was done and the patient was given the opportunity to ask questions and all questions were answered. Juan R chooses IV conscious sedation. Juan R was counseled that if there are changes in his/her medical condition, to let the office know if surgery should proceed. If there are changes in patient's medical condition from time of this encounter to the day of the procedure that preclude anesthesia, patient may have procedure cancelled for patient's safety. Diagnoses: (Z12.11) Screen for colon cancer (primary encounter diagnosis) (R19.7) Diarrhea, unspecified type Portions of this documentation were copied and pasted from previous office visit notes in order to provide a cohesive continuity of the history. The note has been reviewed and edited and updated as necessary. Tana Peterson APRN.CUSTOMER DATA TECHNICIAN UPDATED HISTORY AND PHYSICAL EXAMINATION SERVICE DATE: 07/30/2024 SERVICE TIME: 8:00 AM SENSITIVE EXAMINATION CONSENT: The sensitive examination was discussed with the Patient or Patient's Authorized Adjudication Specialist. Asapplicable, any other physician, advance practice provider, medical student, or other health professional student that will be observing or involved in the sensitive examination for educational or training purposes was discussed with the Patient or Authorized Adjudication Specialist. The Patient or Authorized Adjudication Specialist has agreed to proceed with the sensitive examination. (Sensitive examination includes inspection and/or palpation of the breasts, pelvis, prostate and anorectal regions) PHYSICAL EXAM MUST BE COMPLETED ON ADMISSION The History and Physical (completed in the past 30 days) has been reviewed and the patient has beenexamined. The contents accurately reflect the patient's condition with the following additions or revisions since the H&P was completed. Examination indicates no changes. This H&P can be found in the attached. SIGNATURE: Marcial Davis III, MD PATIENT NAME: Juan R Pollack DATE: July 30, 2024 TIME: 8:00 AM [facility]09-19-2024 History and physical note* Marcial Davis MD - 07/30/2024 8:00 AM EDT HISTORY AND PHYSICAL Juan R Pollack : 1965 REFERRING PHYSICIAN: No referring provider defined for this encounter. CHIEF COMPLAINT: Patient presents with: Consult: Diarrhea, fecal WBC positive HPI: Juan R is a 58 year old female referred for endoscopy. Juan R notes diarrhea and positive fecal WBCs. Cecia notes upper abdominal pain. -Serum H. Pylori is positive. Juan R notes diarrhea x 4 mos- watery- stool test negative except WBCs Juan R denies constipation. Juan R notes a change in bowel habits. Abielia denies melena. Cecia denies bright red blood per rectum. Cecia denies hemorrhoids. Cecia denies heartburn. Cecia denies dysphagia. Abielia denies a history of ulcers/ peptic ulcer disease. +currently has epigastric pain- on h. Pylori tx Denies family history of colon issues. Juan R has undergone prior endoscopy. Last colonoscopy was [address] Pace at [facility]. Sedation received:Fentanyl 100 micrograms IV, Midazolam 4 mg IV Impression: - Diverticulosis in the sigmoid colon and in the descending colon. - Two 5 mm polyps at 20 cm proximal to the anus. Resected and retrieved. Pathology: CONVERTED FINAL DIAGNOSIS Colon, 20 cm, polypectomy - Fragments of hyperplastic polyp. DSA/jw 10/28/2015 CURRENT MEDICATIONS Current Outpatient Medications Medication Sig amoxicillin (AMOXIL) 500 mg capsule Take 2 capsules by mouth two times a day for 14 days. clarithromycin XL (BIAXIN XL) 500 mg 24 hr tablet Take 1 tablet by mouth two times a day for 14 days. lansoprazole (PREVACID) 30 mg capsule Take 1 capsule by mouth two times a day for 14 days. 1/2 hr before meal. estradiol (ESTRACE) 0.01 % (0.1 mg/gram) vaginal cream Use 1 g vaginally two times a week. clobetasol (TEMOVATE) 0.05 % ointment apply a pea-sized amount to vulva qhs. May use 1-2 times daily for 7-10 days prn flares. MULTIVITAMIN ORAL Take by mouth. peg 3350-Electrolytes (GOLYTELY) 236-22.74-6.74 -5.86 gram suspension Take 4,000 mL by mouth one time only for 1 dose. Refer to printed prep instructions from your provider. No current facility-administered medications for this visit. ALLERGIES: Nitrofurantoin and Yeast, Dried PAST MEDICAL HISTORY PAST MEDICAL HISTORY Diagnosis Date Adjustment disorder with depressed mood 01/14/2008 AK (actinic keratosis) 01/27/202401/2024: left upper chest cryo, Calculus of kidney CKD (chronic kidney disease) stage 3, GFR 30-59 ml/min ([facility]) 10/29/[address] Storey COPD (Chronic Obstructive Pulmonary Disease) 04/01/2010 Corpus luteum cyst or hematoma Decreased libido 10/19/2013 Diverticulosis of intestine without bleeding 06/24/2018 Elevated hemoglobin A1c 02/06/2022 Ex-smoker 01/18/2016 Quit 2011. Smoked for about 20 yrs up to 1 PPD History of cervical cancer 1998 Hypotestosteronism 10/19/2013 Internal hemorrhoids without mention of complication 04/27/2008 Irritable bowel syndrome 08/18/2008 Lichen sclerosus et atrophicus 2015 biopsy done Lung nodules 01/28/2024 CT 01/2024 stable compared to 2014. No more f/u needed. Neck pain 04/01/2010 Personal history of tuberculosis 12/29/2005 Was treated. Stage 3a chronic kidney disease (HCC) 10/29/[address] Raleigh Chavez 04/01/2010 rare PAST SURGICAL HISTORY PAST SURGICAL HISTORY Procedure Laterality Date COLONOSCOPY FLX DX W/COLLJ SPEC WHEN PFRMD 10/27/2015 Colonoscopy, repeat 10 yrs COLONOSCOPY W/BIOPSY SINGLE/MULTIPLE 04/27/2008 LITHOTRIPSY XTRCORP SHOCK WAVE 11/11/1995 Lithotripsy LITHOTRIPSY XTRCORP SHOCK WAVE Right 02/07/[address] 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 FAMILY HISTORY FAMILY HISTORY Problem Relation Age of Onset Cervical Cancer Mother Diabetes Mother Hypertension Father Stroke Father Aortic and brain aneurysm 2014 Heart Father other (nephrolithiasis) Father also in Maternal aunt Breast Cancer Maternal Grandmother Coronary Artery Disease Paternal Uncle SOCIAL HISTORY Social History Tobacco Use Smoking status: Former Current packs/day: 0.00 Average packs/day: 0.5 packs/day for 15.0 years (7.5 ttl pk-yrs) Types: Cigarettes Start date: 2000 Quit date: 2016 Years since quittin.7 Smokeless tobacco: Never Vaping Use Vaping status: Never Used Substance Use Topics Alcohol use: Yes Comment: occasional- 1-2 times per month Drug use: No REVIEW OF SYMPTOMS: REVIEW OF SYSTEMS: General: The patient denies fatigue, + weight loss, + weight gain, denies feeling hot, and feelingsof cold. Cardiovascular: The patient denies chest pain, denies heart disease, denies high blood pressure, denies high cholesterol, and denies poor circulation. Respiratory: The patient + tuberculosis, denies pneumonia, denies frequent cough, denies shortness of breath, and denies coughing up blood. Gastrointestinal: The patient denies difficulty swallowing, denies acid reflux, denies ulcers, denies jaundice/hepatitis, denies gallbladder problems, denies vomiting, denies black or tarry stools, +hemorrhoids, denies bleeding from rectum, + diverticulitis, denies constipation, + diarrhea, + lossof stool control, and denies hernias. Infections: The patient denies a history of measles, +mumps, denies rheumatic fever, and denies sexually transmitted diseases. PHYSICAL EXAMINATION: General: The patient is 58 year old, female well nourished, well hydrated in no acute distress. Thepatient is oriented to time, place, and person. VITALS: Blood pressure 143/83, pulse 71, temperature 36.4 C (97.5 F), height 157.5 cm (5' 2), weight 54 kg (119 lb), SpO2 98%. Body mass index is 21.77 kg/m . HEENT: Normal cephalic, ataumatic, pupils are equally round, sclera are anicteric, mucous membranesare moist, oropharynx is clear. Neck has no masses, asymmetry or lymphadenopathy. Respiratory: Clear to auscultation and percussion. Normal respiratory excursion and pattern. Cardiac: Examination is regular rate and rhythm. Normal S1/S2 Abdominal exam: Soft, nontender, with no palpable masses. No hepatosplenomegaly. No palpable hernias. Extremities: no clubbing, cyanosis or edema. No adenopathy. LABORATORY VALUES: As Noted RADIOLOGIC STUDIES: As Noted Assessment IMPRESSION: diarrhea, h. Pylori infection, screen for colon cancer PLAN: I have reviewed my findings with the surgeon. Will plan for lower endoscopy. We discussed therisks and benefits of the planned endoscopy. I have informed the patient that complications can occur including failure to complete the endoscopy and perforation. Juan R had the opportunity to ask questions concerning the planned endoscopy. My staff has also explained the procedure to the patient inunderstandable terms and has given the patient printed material concerning the procedure. Juan R freely consents to surgery. I plan to use Golytely bowel preparation I have explained to the patient the difference between IV conscious sedation and MAC anesthesia - and I have offered either, according to the patient's wishes. I have explained that with IV conscioussedation there is no anesthesia provider available and therefore there is a limitation of the amount of IV medications that can be given and that the patient may wake up in the middle of the procedure and/or experience pain/discomfort during the procedure. Further discussion was done and the patient was given the opportunity to ask questions and all questions were answered. Abieljuan chooses IV conscious sedation. Abieljuan was counseled that if there are changes in his/her medical condition, to let the office know if surgery should proceed. If there are changes in patient's medical condition from time of this encounter to the day of the procedure that preclude anesthesia, patient may have procedure cancelled for patient's safety. Diagnoses: (Z12.11) Screen for colon cancer (primary encounter diagnosis) (R19.7) Diarrhea, unspecified type Portions of this documentation were copied and pasted from previous office visit notes in order to provide a cohesive continuity of the history. The note has been reviewed and edited and updated as necessary. Tana Peterson APRN.CUSTOMER DATA TECHNICIAN UPDATED HISTORY AND PHYSICAL EXAMINATION SERVICE DATE: 07/30/2024 SERVICE TIME: 8:00 AM SENSITIVE EXAMINATION CONSENT: The sensitive examination was discussed with the Patient or Patient's Authorized Adjudication Specialist. Asapplicable, any other physician, advance practice provider, medical student, or other health professional student that will be observing or involved in the sensitive examination for educational or training purposes was discussed with the Patient or Authorized Adjudication Specialist. The Patient or Authorized Adjudication Specialist has agreed to proceed with the sensitive examination. (Sensitive examination includes inspection and/or palpation of the breasts, pelvis, prostate and anorectal regions) PHYSICAL EXAM MUST BE COMPLETED ON ADMISSION The History and Physical (completed in the past 30 days) has been reviewed and the patient has beenexamined. The contents accurately reflect the patient's condition with the following additions or revisions since the H&P was completed. Examination indicates no changes. This H&P can be found in the attached. SIGNATURE: Marcial Davis III, MD PATIENT NAME: Juan R William Alex DATE: July 30, 2024 TIME: 8:00 AM documented in this encounterOhio[facility] History of Present illness Narrative* Tana Peterson APRN.CNP - 07/24/2024 8:30 AM EDT HISTORY AND PHYSICAL Juan R William Alex : 1965 REFERRING PHYSICIAN: No referring provider defined for this encounter. CHIEF COMPLAINT: Patient presents with: Consult: Diarrhea, fecal WBC positive HPI: Juan R is a 58 year old female referred for endoscopy. Juan R notes diarrhea and positive fecal WBCs. Cecia notes upper abdominal pain. -Serum H. Pylori is positive. Juan R notes diarrhea x 4 mos- watery- stool test negative except WBCs Juan R denies constipation. Cecia notes a change in bowel habits. Cecia denies melena. Cecia denies bright red blood per rectum. Cecia denies hemorrhoids. Cecia denies heartburn. Cecia denies dysphagia. Cecia denies a history of ulcers/ peptic ulcer disease. +currently has epigastric pain- on h. Pylori tx Denies family history of colon issues. Juan R has undergone prior endoscopy. Last colonoscopy was [address] Pace at [facility]. Sedation received:Fentanyl 100 micrograms IV, Midazolam 4 mg IV Impression: - Diverticulosis in the sigmoid colon and in the descending colon. - Two 5 mm polyps at 20 cm proximal to the anus. Resected and retrieved. Pathology: CONVERTED FINAL DIAGNOSIS Colon, 20 cm, polypectomy - Fragments of hyperplastic polyp. VANI/jw 10/28/2015 Current Outpatient Medications Medication Sig amoxicillin (AMOXIL) 500 mg capsule Take 2 capsules by mouth two times a day for 14 days. clarithromycin XL (BIAXIN XL) 500 mg 24 hr tablet Take 1 tablet by mouth two times a day for 14 days. lansoprazole (PREVACID) 30 mg capsule Take 1 capsule by mouth two times a day for 14 days. 1/2 hr before meal. estradiol (ESTRACE) 0.01 % (0.1 mg/gram) vaginal cream Use 1 g vaginally two times a week. clobetasol (TEMOVATE) 0.05 % ointment apply a pea-sized amount to vulva qhs. May use 1-2 times daily for 7-10 days prn flares. MULTIVITAMIN ORAL Take by mouth. peg 3350-Electrolytes (GOLYTELY) 236-22.74-6.74 -5.86 gram suspension Take 4,000 mL by mouth one time only for 1 dose. Refer to printed prep instructions from your provider. No current facility-administered medications for this visit. ALLERGIES: Nitrofurantoin and Yeast, Dried PAST MEDICAL HISTORY Diagnosis Date Adjustment disorder with depressed mood 01/14/2008 AK (actinic keratosis) 01/27/202401/2024: left upper chest cryo, Calculus of kidney CKD (chronic kidney disease) stage 3, GFR 30-59 ml/min ([facility]) 10/29/[address] Storey COPD (Chronic Obstructive Pulmonary Disease) 04/01/2010 Corpus luteum cyst or hematoma Decreased libido 10/19/2013 Diverticulosis of intestine without bleeding 06/24/2018 Elevated hemoglobin A1c 02/06/2022 Ex-smoker 01/18/2016 Quit 2011. Smoked for about 20 yrs up to 1 PPD History of cervical cancer 1998 Hypotestosteronism 10/19/2013 Internal hemorrhoids without mention of complication 04/27/2008 Irritable bowel syndrome 08/18/2008 Lichen sclerosus et atrophicus 2014 biopsy done Lung nodules 01/28/2024 CT 01/2024 stable compared to 2014. No more f/u needed. Neck pain 04/01/2010 Personal history of tuberculosis 12/29/2005 Was treated. Stage 3a chronic kidney disease ([facility]) 10/29/[address] Storey Vertigo 04/01/2010 rare PAST SURGICAL HISTORY Procedure Laterality Date COLONOSCOPY FLX DX W/COLLJ SPEC WHEN PFRMD 10/27/2015 Colonoscopy, repeat 10 yrs COLONOSCOPY W/BIOPSY SINGLE/MULTIPLE 04/27/2008 LITHOTRIPSY XTRCORP SHOCK WAVE 11/11/1995 Lithotripsy LITHOTRIPSY XTRCORP SHOCK WAVE Right 02/07/[address] 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 FAMILY HISTORY Problem Relation Age of Onset Cervical Cancer Mother Diabetes Mother Hypertension Father Stroke Father Aortic and brain aneurysm 2014 Heart Father other (nephrolithiasis) Father also in Maternal aunt Breast Cancer Maternal Grandmother Coronary Artery Disease Paternal Uncle Social History Tobacco Use Smoking status: Former Current packs/day: 0.00 Average packs/day: 0.5 packs/day for 15.0 years (7.5 ttl pk-yrs) Types: Cigarettes Start date: 2000 Quit date: 2016 Years since quittin.7 Smokeless tobacco: Never Vaping Use Vaping status: Never Used Substance Use Topics Alcohol use: Yes Comment: occasional- 1-2 times per month Drug use: No REVIEW OF SYMPTOMS: REVIEW OF SYSTEMS: General: The patient denies fatigue, + weight loss, + weight gain, denies feeling hot, and feelingsof cold. Cardiovascular: The patient denies chest pain, denies heart disease, denies high blood pressure, denies high cholesterol, and denies poor circulation. Respiratory: The patient + tuberculosis, denies pneumonia, denies frequent cough, denies shortness of breath, and denies coughing up blood. Gastrointestinal: The patient denies difficulty swallowing, denies acid reflux, denies ulcers, denies jaundice/hepatitis, denies gallbladder problems, denies vomiting, denies black or tarry stools, +hemorrhoids, denies bleeding from rectum, + diverticulitis, denies constipation, + diarrhea, + lossof stool control, and denies hernias. Infections: The patient denies a history of measles, +mumps, denies rheumatic fever, and denies sexually transmitted diseases. PHYSICAL EXAMINATION: General: The patient is 58 year old, female well nourished, well hydrated in no acute distress. Thepatient is oriented to time, place, and person. VITALS: Blood pressure 143/83, pulse 71, temperature 36.4 C (97.5 F), height 157.5 cm (5' 2), weight 54 kg (119 lb), SpO2 98%. Body mass index is 21.77 kg/m . HEENT: Normal cephalic, ataumatic, pupils are equally round, sclera are anicteric, mucous membranesare moist, oropharynx is clear. Neck has no masses, asymmetry or lymphadenopathy. Respiratory: Clear to auscultation and percussion. Normal respiratory excursion and pattern. Cardiac: Examination is regular rate and rhythm. Normal S1/S2 Abdominal exam: Soft, nontender, with no palpable masses. No hepatosplenomegaly. No palpable hernias. Extremities: no clubbing, cyanosis or edema. No adenopathy. LABORATORY VALUES: As Noted RADIOLOGIC STUDIES: As Noted Assessment IMPRESSION: diarrhea, h. Pylori infection, screen for colon cancer PLAN: I have reviewed my findings with the surgeon. Will plan for lower endoscopy. We discussed therisks and benefits of the planned endoscopy. I have informed the patient that complications can occur including failure to complete the endoscopy and perforation. Juan R had the opportunity to ask questions concerning the planned endoscopy. My staff has also explained the procedure to the patient inunderstandable terms and has given the patient printed material concerning the procedure. Juan R freely consents to surgery. I plan to use Golytely bowel preparation I have explained to the patient the difference between IV conscious sedation and MAC anesthesia - and I have offered either, according to the patient's wishes. I have explained that with IV conscioussedation there is no anesthesia provider available and therefore there is a limitation of the amount of IV medications that can be given and that the patient may wake up in the middle of the procedure and/or experience pain/discomfort during the procedure. Further discussion was done and the patient was given the opportunity to ask questions and all questions were answered. Juan R chooses IV conscious sedation. Juan R was counseled that if there are changes in his/her medical condition, to let the office know if surgery should proceed. If there are changes in patient's medical condition from time of this encounter to the day of the procedure that preclude anesthesia, patient may have procedure cancelled for patient's safety. Diagnoses: (Z12.11) Screen for colon cancer (primary encounter diagnosis) (R19.7) Diarrhea, unspecified type Portions of this documentation were copied and pasted from previous office visit notes in order to provide a cohesive continuity of the history. The note has been reviewed and edited and updated as necessary. Tana Peterson APRN.EMILY documented in this encounterOhio[facility]09-13-2024 NoteHNO ID: [id number] Author: TANA PETERSON APRN.EMILY Service: ? Author Type: Nurse Practitioner Type: Progress Notes Filed: 07/24/2024 08:57 Note Text: HISTORY AND PHYSICAL Juan R William Keishacyndi : 1965 REFERRING PHYSICIAN: No referring provider defined for this encounter. CHIEF COMPLAINT: Patient presents with: Consult: Diarrhea, fecal WBC positive HPI: Juan R is a 58 year old female referred for endoscopy. Juan R notes diarrhea and positive fecal WBCs. Juan R notes upper abdominal pain. -Serum H. Pylori is positive. Juan R notes diarrhea x 4 mos- watery- stool test negative except WBCs Juan R denies constipation. Juan R notes a change in bowel habits. Juan R denies melena. Cecia denies bright red blood per rectum. Cecia denies hemorrhoids. Cecia denies heartburn. Cecia denies dysphagia. Cecia denies a history of ulcers/ peptic ulcer disease. +currently has epigastric pain- on h. Pylori tx Denies family history of colon issues. Juan R has undergone prior endoscopy. Last colonoscopy was [address] Pace at [facility]. Sedation received:Fentanyl 100 micrograms IV, Midazolam 4 mg IV Impression: - Diverticulosis in the sigmoid colon and in the descending colon. - Two 5 mm polyps at 20 cm proximal to the anus. Resected and retrieved. Pathology: CONVERTED FINAL DIAGNOSIS Colon, 20 cm, polypectomy - Fragments of hyperplastic polyp. DSA/jw 10/28/2015 Current Outpatient Medications Medication Sig amoxicillin (AMOXIL) 500 mg capsule Take 2 capsules by mouth two times a day for 14 days. clarithromycin XL (BIAXIN XL) 500 mg 24 hr tablet Take 1 tablet by mouth two times a day for 14 days. lansoprazole (PREVACID) 30 mg capsule Take 1 capsule by mouth two times a day for 14 days. 1/2 hr before meal. estradiol (ESTRACE) 0.01 % (0.1 mg/gram) vaginal cream Use 1 g vaginally two times a week. clobetasol (TEMOVATE) 0.05 % ointment apply a pea-sized amount to vulva qhs. May use 1-2 times daily for 7-10 days prn flares. MULTIVITAMIN ORAL Take by mouth. peg 3350-Electrolytes (GOLYTELY) 236-22.74-6.74 -5.86 gram suspension Take 4,000 mL by mouth one time only for 1 dose. Refer to printed prep instructions from your provider. No current facility-administered medications for this visit. ALLERGIES: Nitrofurantoin and Yeast, Dried PAST MEDICAL HISTORY Diagnosis Date Adjustment disorder with depressed mood 01/14/2008 AK (actinic keratosis) 01/27/202401/2024: left upper chest cryo, Calculus of kidney CKD (chronic kidney disease) stage 3, GFR 30-59 ml/min ([facility]) 10/29/[address] Storey COPD (Chronic Obstructive Pulmonary Disease) 04/01/2010 Corpus luteum cyst or hematoma Decreased libido 10/19/2013 Diverticulosis of intestine without bleeding 06/24/2018 Elevated hemoglobin A1c 02/06/2022 Ex-smoker 01/18/2016 Quit 2011. Smoked for about 20 yrs up to 1 PPD History of cervical cancer 1998 Hypotestosteronism 10/19/2013 Internal hemorrhoids without mention of complication 04/27/2008 Irritable bowel syndrome 08/18/2008 Lichen sclerosus et atrophicus 2014 biopsy done Lung nodules 01/28/2024 CT 01/2024 stable compared to 2014. No more f/u needed. Neck pain 04/01/2010 Personal history of tuberculosis 12/29/2005 Was treated. Stage 3a chronic kidney disease (HCC) 10/29/[address] Raleigh Chavez 04/01/2010 rare PAST SURGICAL HISTORY Procedure Laterality Date COLONOSCOPY FLX DX W/COLLJ SPEC WHEN PFRMD 10/27/2015 Colonoscopy, repeat 10 yrs COLONOSCOPY W/BIOPSY SINGLE/MULTIPLE 04/27/2008 LITHOTRIPSY XTRCORP SHOCK WAVE 11/11/1995 Lithotripsy LITHOTRIPSY XTRCORP SHOCK WAVE Right 02/07/[address] 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 FAMILY HISTORY Problem Relation Age of Onset Cervical Cancer Mother Diabetes Mother Hypertension Father Stroke Father Aortic and brain aneurysm 2014 Heart Father other (nephrolithiasis) Father also in Maternal aunt Breast Cancer Maternal Grandmother Coronary Artery Disease Paternal Uncle Social History Tobacco Use Smoking status: Former Current packs/day: 0.00 Average packs/day: 0.5 packs/day for 15.0 years (7.5 ttl pk-yrs) Types: Cigarettes Start date: 2000 Quit date: 2016 Years since quittin.7 Smokeless tobacco: Never Vaping Use Vaping status: Never Used Substance Use Topics Alcohol use: Yes Comment: occasional- 1-2 times per month Drug use: No REVIEW OF SYMPTOMS: REVIEW OF SYSTEMS: General: The patient denies fatigue, + weight loss, + weight gain, denies feeling hot, and feelings of cold. Cardiovascular: The patient denies chest pain, denies heart disease, denies high blood pressure, denies high cholesterol, and denies poor circulation. Respiratory: The patient + tuberculosis, denies pneumonia, denies frequent cough, denies shortness of breath, and denies coughing up blood. Gastrointestinal: The patie (more content not included)...[facility]09-03-2024 Telephone encounter Note* Telephone Encounter - Alejo Fletcher MD - 07/14/2024 12:53 PM EDT The following approved medication requests have been transmitted electronically. Requested Prescriptions Signed Prescriptions Disp Refills amoxicillin (AMOXIL) 500 mg capsule 56 capsule 0 Sig: Take 2 capsules by mouth two times a day for 14 days. Authorizing Provider: ALEJO FLETCHER clarithromycin XL (BIAXIN XL) 500 mg 24 hr tablet 28 tablet 0 Sig: Take 1 tablet by mouth two times a day for 14 days. Authorizing Provider: ALEJO FLETCHER lansoprazole (PREVACID) 30 mg capsule 28 capsule 0 Sig: Take 1 capsule by mouth two times a day for 14 days. 1/2 hr before meal. Authorizing Provider: ALEJO FLETCHER MD [facility]09-03-2024 Miscellaneous Notes* Telephone Encounter - Alejo Fletcher MD - 07/14/2024 12:53 PM EDT The following approved medication requests have been transmitted electronically. Requested Prescriptions Signed Prescriptions Disp Refills amoxicillin (AMOXIL) 500 mg capsule 56 capsule 0 Sig: Take 2 capsules by mouth two times a day for 14 days. Authorizing Provider: ALEJO FLETCHER clarithromycin XL (BIAXIN XL) 500 mg 24 hr tablet 28 tablet 0 Sig: Take 1 tablet by mouth two times a day for 14 days. Authorizing Provider: ALEJO FLETCHER lansoprazole (PREVACID) 30 mg capsule 28 capsule 0 Sig: Take 1 capsule by mouth two times a day for 14 days. 1/2 hr before meal. Authorizing Provider: ALEJO FLETCHER MD * Telephone Encounter - Mica Strange RN - 07/14/2024 8:40 AM EDT Pt called and is notified of providers results and instructions. Pt would like medication sent to [facility] in [place]. Pt voices understanding. Transferred to scheduled to set up appt with General Surgery. Mica Strange, RN * Telephone Encounter - Alejo Fletcher MD - 07/13/2024 3:50 PM EDT Let patient know that the only abnormal stool study shows inflammation in the colon and will need acolonoscopy. Consult to Gen Surgery placed. All the studies for bacteria and parasites in her colonwere neg. Her H. Pylori test foe a bacteria in her stomach was positive and this can be source of the upper abdominal pain. Needs treated with two different antibiotics for two weeks and a acid reducing medication. Where does she want these scripts sent. Her mammogram was ok. * Telephone Encounter - Opal Reynoso LPN - 07/08/2024 1:02 PM EDT states that everything she has tried at home does not work. When she eats she has diarrhea within 15 minutes. states that she will call in Saturday to see what PCP is recommending. Asking for consult to gastro be placed. * Telephone Encounter - Ayan Michael MA - 07/08/2024 12:57 PM EDT Left message to call office. 07/08/2024 12:57 PM * Telephone Encounter - Richie Daniel MD - 07/08/2024 12:21 PM EDT Fecal lactoferrin is indicated of the possible presence of white blood cells and inflammation in the colon. H. Pylori antibody may indicated previous or current stomach infection and gastritis. Recommend: Continue self measures to control chronic symptoms noted at OV. Request PCP for gastroenterology referral. * Telephone Encounter - Opal Reynoso LPN - 07/08/2024 8:20 AM EDT Patients called, states that he saw that one of her stool tests was positive but he is not sure what that indicates. Patient is leaving for vacation today and is asking what would be recommended for this. States that she has had diarrhea for 4 months and they are trying to find the cause. Please advise. documented in this encounterOhio[facility]09-03-2024 Telephone encounter Note * Telephone Encounter - Mica Strange RN - 07/14/2024 8:40 AM EDT Pt called and is notified of providers results and instructions. Pt would like medication sent to [facility] in [place]. Pt voices understanding. Transferred to scheduled to set up appt with General Surgery. Mica Strange RN [facility]09-02-[facility] Telephone encounter Note* Telephone Encounter - Alejo Fletcher MD - 07/13/2024 3:50 PM EDT Let patient know that the only abnormal stool study shows inflammation in the colon and will need acolonoscopy. Consult to Gen Surgery placed. All the studies for bacteria and parasites in her colonwere neg. Her H. Pylori test foe a bacteria in her stomach was positive and this can be source of the upper abdominal pain. Needs treated with two different antibiotics for two weeks and a acid reducing medication. Where does she want these scripts sent. Her mammogram was ok. [facility]08-28-[facility] Telephone encounter Note* Telephone Encounter - Opal Reynoso LPN - 07/08/2024 1:02 PM EDT states that everything she has tried at home does not work. When she eats she has diarrhea within 15 minutes. states that she will call in Saturday to see what PCP is recommending. Asking for consult to gastro be placed. [facility]08-28-[facility] Telephone encounter Note* Telephone Encounter - Ayan Michael MA - 07/08/2024 12:57 PM EDT Left message to call office. 07/08/2024 12:57 PM [facility] Telephone encounter Note* Telephone Encounter - Richie Daniel MD - 07/08/2024 12:21 PM EDT Fecal lactoferrin is indicated of the possible presence of white blood cells and inflammation in the colon. H. Pylori antibody may indicated previous or current stomach infection and gastritis. Recommend: Continue self measures to control chronic symptoms noted at OV. Request PCP for gastroenterology referral. [facility] Work Phone: [phone]) 825-416408-28-2024 Telephone encounter Note* Telephone Encounter - Opal Reynoso LPN - 07/08/2024 8:20 AM EDT Patients called, states that he saw that one of her stool tests was positive but he is not sure what that indicates. Patient is leaving for vacation today and is asking what would be recommended for this. States that she has had diarrhea for 4 months and they are trying to find the cause. Please advise. [facility]08-26-2024 Note* Letter - Coordinator, Leilani - 07/06/2024 1:07 PM EDT July 06, 2024 PID: [id number] Juan R Pollack [address] [place] [address] Dear Ms. Nataliia Pollack, We are pleased to inform you that the results of your recent breast imaging exam on 07/03/2024 are normal. Breast tissue can be either dense or not dense. Dense tissue makes it harder to find breast cancer on a mammogram and also raises the risk of developing breast cancer. Your breast tissue is not dense. Talk to your healthcare provider about breast density, risks for breast cancer, and your individual situation. Early detection of cancer is very important. We also understand recommendations regarding breast cancer screening are controversial. Please discuss with your primary care provider which strategy is best for you and whether a mammogram is right for you. Your imaging studies and report will be kept on file at [facility] as part of your permanent medical record and are available for your continuing care. Thank you for allowing us to help in meeting your health care needs. Sincerely, Dr. Stout Interpreting Radiologist [facility] (Normal over 40) [facility]08-26-2024 Miscellaneous Notes* Letter - Coordinator, Mammography - 07/06/2024 1:07 PM EDT July 06, 2024 PID: [id number] Juan R Pollack [address] [place] [address] Dear Ms. Nataliia Pollack, We are pleased to inform you that the results of your recent breast imaging exam on 07/03/2024 are normal. Breast tissue can be either dense or not dense. Dense tissue makes it harder to find breast cancer on a mammogram and also raises the risk of developing breast cancer. Your breast tissue is not dense. Talk to your healthcare provider about breast density, risks for breast cancer, and your individual situation. Early detection of cancer is very important. We also understand recommendations regarding breast cancer screening are controversial. Please discuss with your primary care provider which strategy is best for you and whether a mammogram is right for you. Your imaging studies and report will be kept on file at [facility] as part of your permanent medical record and are available for your continuing care. Thank you for allowing us to help in meeting your health care needs. Sincerely, Dr. Stout Interpreting Radiologist [facility] (Normal over 40) documented in this encounterOhiohealth Van Wert Hospital08-23-2024 History of Present illness Narrative* Rosa Isela Mancera Mammo Tech - 07/03/2024 7:30 AM EDT Radiology Service Progress Note PATIENT NAME: Juan R Pollack DATE OF SERVICE: July 03, 2024 TIME: 7:33 AM PATIENT IDENTITY VERIFICATION COMPLETED USING TWO (2) IDENTIFIERS: Name and Date of confirmedby patient verbally. FALL SCREENING: Has the patient had 2 falls in the last year or 1 fall with injury or currently using an Ambulatory Assistive Device (Walker, Cane, Wheelchair, Crutches, etc.)? No PATIENT GENDER DATA: Female. status: : No status: NO. PATIENT RELEVANT IMPLANT DATA REVIEWED: Not Applicable PATIENT PRESENTS WITH AN IMPLANTABLE OR ATTACHED MEDICAL LAB DIRECTOR: No RADIOLOGY DEPARTMENT: Mammography PERIPHERAL IV DATA: Not applicable SIGNED BY: Danii Brandon July 03, 2024 7:33 AM documented in this encounterOhiohealth Van Wert Hospital08-23-2024 NoteHNO ID: [id number] Author: ROSA ISELA MANCERA Mammo Tech Service: ? Author Type: [employer] Etch Operator Type: Progress Notes Filed: 07/03/2024 07:33 Note Text: Radiology Service Progress Note PATIENT NAME: Juan R Pollack DATE OF SERVICE: July 03, 2024 TIME: 7:33 AM PATIENT IDENTITY VERIFICATION COMPLETED USING TWO (2) IDENTIFIERS: Name and Date of confirmed by patient verbally. FALL SCREENING: Has the patient had 2 falls in the last year or 1 fall with injury or currently using an Ambulatory Assistive Device (Walker, Cane, Wheelchair, Crutches, etc.)? No PATIENT GENDER DATA: Female. status: : No status: NO. PATIENT RELEVANT IMPLANT DATA REVIEWED: Not Applicable PATIENT PRESENTS WITH AN IMPLANTABLE OR ATTACHED MEDICAL LAB DIRECTOR: No RADIOLOGY DEPARTMENT: Mammography PERIPHERAL IV DATA: Not applicable SIGNED BY: Rosa Isela Mancera [employer] July 03, 2024 7:33 [facility]08-21-2024 History of Present illness Narrative* Alejo Fletcher MD - 07/01/2024 7:20 PM EDT Chief Complaint Patient presents with: Follow Up HPI Juan R Pollack is a 58 year old female who presents here today for chronic diarrhea and lightheaded.. Patient with hx of CKD seeing renal, diverticulosis, IBS, COPD, as well as those reviewed and addressed below. Has IBS but this is different. Has been going on for about 4 months. She has upper abdominal pain. Is hungry and thirsty all the time. No nausea. Stool has been liquid. No blood or melena. She stopped the potassium citrate because she was just passing the pill through. Not affected by certain foods especially fatty foods. No recent travel or antibiotics. Past medical history, appointments, medications, allergies reviewed. Previous Medical History PAST MEDICAL HISTORY 01/14/2008: Adjustment disorder with depressed mood 01/27/2024: AK (actinic keratosis) Comment: 01/2024: left upper chest cryo, No date: Calculus of kidney 10/29/2017: CKD (chronic kidney disease) stage 3, GFR 30-59 ml/min ([facility]) Comment: Seeing Dr. Storey 04/01/2010: COPD (Chronic Obstructive Pulmonary Disease) No date: Corpus luteum cyst or hematoma 10/19/2013: Decreased libido 06/24/2018: Diverticulosis of intestine without bleeding 02/06/2022: Elevated hemoglobin A1c 01/18/2016: Ex-smoker Comment: Quit 2011. Smoked for about 20 yrs up to 1 PPD 1998: History of cervical cancer 10/19/2013: Hypotestosteronism 04/27/2008: Internal hemorrhoids without mention of complication 08/18/2008: Irritable bowel syndrome 2014: Lichen sclerosus et atrophicus Comment: biopsy done 01/28/2024: Lung nodules Comment: CT 01/2024 stable compared to 2014. No more f/u needed. 04/01/2010: Neck pain 12/29/2005: Personal history of tuberculosis Comment: Was treated. 10/29/2017: Stage 3a chronic kidney disease (HCC) Comment: Seeing Dr. Storey 04/01/2010: Vertigo Comment: rare Previous Surgical History PAST SURGICAL HISTORY 10/27/2015: COLONOSCOPY FLX DX W/COLLJ SPEC WHEN PFRMD Comment: Colonoscopy, repeat 10 yrs 04/27/2008: COLONOSCOPY W/BIOPSY SINGLE/MULTIPLE 11/11/1995: LITHOTRIPSY XTRCORP SHOCK WAVE Comment: Lithotripsy 02/07/2023: LITHOTRIPSY XTRCORP SHOCK WAVE; Right Comment: per Dr. Rios 11/11/1998: VAGINAL HYSTERECTOMY UTERUS 250 GM/< Comment: carcinoma in situ. Family History FAMILY HISTORY Problem Relation Age of Onset Cervical Cancer Mother Diabetes Mother Hypertension Father Stroke Father Aortic and brain aneurysm 2014 Heart Father other (nephrolithiasis) Father also in Maternal aunt Breast Cancer Maternal Grandmother Coronary Artery Disease Paternal Uncle Patient Allergies ALLERGIES Allergen Reactions Nitrofurantoin Other: See Comments Chest pain, sob, and body aches Yeast, Dried Unknown Current Medications Current Outpatient Medications on File Prior to Visit Medication Sig estradiol (ESTRACE) 0.01 % (0.1 mg/gram) vaginal cream Use 1 g vaginally two times a week. clobetasol (TEMOVATE) 0.05 % ointment apply a pea-sized amount to vulva qhs. May use 1-2 times daily for 7-10 days prn flares. MULTIVITAMIN ORAL Take by mouth. potassium citrate ER (UROCIT-K) 10 mEq (1,080 mg) TbER Take 1,080 mg by mouth once daily. Lactobacillus acidophilus (PROBIOTIC ORAL) Take by mouth. No current facility-administered medications on file prior to visit. Social History Social History Tobacco Use Smoking status: Former Current packs/day: 0.00 Average packs/day: 0.5 packs/day for 15.0 years (7.5 ttl pk-yrs) Types: Cigarettes Start date: 2000 Quit date: 2016 Years since quittin.6 Smokeless tobacco: Never Vaping Use Vaping status: Never Used Substance Use Topics Alcohol use: Yes Comment: occasional- 1-2 times per month Drug use: No Review of Symptoms REVIEW OF SYSTEMS See HPI EXAM: BP 118/62 Pulse 60 Temp 36.7 C (98 F) Resp 16 Wt 54 kg (119 lb) BMI 22.12 kg/m Last 6 Encounter Wt Readings: Date: Wt: 07/01/2024 54 kg (119 lb) 01/27/2024 54.9 kg (121 lb) 01/15/2024 53.1 kg (117 lb) 02/06/2023 57.2 kg (126 lb) 02/05/2022 50.8 kg (112 lb) 02/03/2022 50.3 kg (111 lb) General Appearance: Well appearing, alert, in no acute distress, well-hydrated, well nourished.. Neck: Supple, no adenopathy; thyroid symmetric, normal size, no bruits. Lungs: Lungs clear to auscultation. No wheezing, rhonchi, rales.. Heart: RRR without murmur, gallop, or rubs. No ectopy. Abdomen: Abdomen soft, non-distended. Mid-epigastric soreness with no guarding or rebound pain. Bowel sounds normal. No masses, organomegaly. Health Maintenance List Depression Screening Never done Anxiety Screening Never done Mammogram Screening due on 02/07/2024 RSV Vaccine(1 - 1-dose 60+ series) due on 01/14/2025 Shingrix Vaccine(1 of 2) due on 01/14/2025 Covid-19 Vaccine(2 - 2022- season) due on 01/14/2025 Pneumococcal Vaccine(1 of 2 - PCV) due on 01/09/2029 Influenza Vaccine(1) due on 07/12/2024 Serum Creatinine due on 01/19/2025 Hemoglobin/Hematocrit due on 01/19/2025 Annual PCP Team Chronic Disease Visit due on 01/26/2025 Colorectal Cancer Screening due on 10/27/2025 DTaP,Tdap,Td Vaccine(3 - Td or Tdap) due on 01/17/2026 Diabetes Screening due on 01/19/2027 Lipid Screening due on 01/19/2029 Alpha-1 Antitrypsin Deficiency Screening Discontinued Spirometry Discontinued Cervical Cancer Screening Discontinued Hepatitis C Screening Discontinued HIV Screening Discontinued Data reviewed A/P ASSESSMENT/PLAN: 1. Epigastric pain - ICD9: 789.06, ICD10: R10.13 (primary diagnosis) Check - HEPATIC FUNCTION PNL - H PYLORI IGG AB - AMYLASE - LIPASE May need RUQ US 2. Diarrhea, unspecified type - ICD9: 787.91, ICD10: R19.7 Check - THYROID STIMULATING HORMONE - CRYPTOSPORIDIUM AND GIARDIA ANTIGENS BY EIA - ENTERIC BACTERIAL PANEL BY PCR - FAT, FECAL QUAL - FECAL LACTOFERRIN/LEUKOCYTES F/u if not resolving. Alejo Fletcher MD documented in this encounterOhiohealth [facility]08-21-2024 NoteHNO ID: [id number] Author: ALEJO FLETCHER MD Service: ? Author Type: Physician Type: Progress Notes Filed: 07/01/2024 21:12 Note Text: Chief Complaint Patient presents with: Follow Up HPI Juan R Pollack is a 58 year old female who presents here today for chronic diarrhea and lightheaded.. Patient with hx of CKD seeing renal, diverticulosis, IBS, COPD, as well as those reviewed and addressed below. Has IBS but this is different. Has been going on for about 4 months. She has upper abdominal pain. Is hungry and thirsty all the time. No nausea. Stool has been liquid. No blood or melena. She stopped the potassium citrate because she was just passing the pill through. Not affected by certain foods especially fatty foods. No recent travel or antibiotics. Past medical history, appointments, medications, allergies reviewed. Previous Medical History PAST MEDICAL HISTORY 01/14/2008: Adjustment disorder with depressed mood 01/27/2024: AK (actinic keratosis) Comment: 01/2024: left upper chest cryo, No date: Calculus of kidney 10/29/2017: CKD (chronic kidney disease) stage 3, GFR 30-59 ml/min ([facility]) Comment: Seeing Dr. Storey 04/01/2010: COPD (Chronic Obstructive Pulmonary Disease) No date: Corpus luteum cyst or hematoma 10/19/2013: Decreased libido 06/24/2018: Diverticulosis of intestine without bleeding 02/06/2022: Elevated hemoglobin A1c 01/18/2016: Ex-smoker Comment: Quit 2011. Smoked for about 20 yrs up to 1 PPD 1998: History of cervical cancer 10/19/2013: Hypotestosteronism 04/27/2008: Internal hemorrhoids without mention of complication 08/18/2008: Irritable bowel syndrome 2015: Lichen sclerosus et atrophicus Comment: biopsy done 01/28/2024: Lung nodules Comment: CT 01/2024 stable compared to 2014. No more f/u needed. 04/01/2010: Neck pain 12/29/2005: Personal history of tuberculosis Comment: Was treated. 10/29/2017: Stage 3a chronic kidney disease (HCC) Comment: Seeing Dr. Storey 04/01/2010: Vertigo Comment: rare Previous Surgical History PAST SURGICAL HISTORY 10/27/2015: COLONOSCOPY FLX DX W/COLLJ SPEC WHEN PFRMD Comment: Colonoscopy, repeat 10 yrs 04/27/2008: COLONOSCOPY W/BIOPSY SINGLE/MULTIPLE 11/11/1995: LITHOTRIPSY XTRCORP SHOCK WAVE Comment: Lithotripsy 02/07/2023: LITHOTRIPSY XTRCORP SHOCK WAVE; Right Comment: per Dr. Rios 11/11/1998: VAGINAL HYSTERECTOMY UTERUS 250 GM/< Comment: carcinoma in situ. Family History FAMILY HISTORY Problem Relation Age of Onset Cervical Cancer Mother Diabetes Mother Hypertension Father Stroke Father Aortic and brain aneurysm 2014 Heart Father other (nephrolithiasis) Father also in Maternal aunt Breast Cancer Maternal Grandmother Coronary Artery Disease Paternal Uncle Patient Allergies ALLERGIES Allergen Reactions Nitrofurantoin Other: See Comments Chest pain, sob, and body aches Yeast, Dried Unknown Current Medications Current Outpatient Medications on File Prior to Visit Medication Sig estradiol (ESTRACE) 0.01 % (0.1 mg/gram) vaginal cream Use 1 g vaginally two times a week. clobetasol (TEMOVATE) 0.05 % ointment apply a pea-sized amount to vulva qhs. May use 1-2 times daily for 7-10 days prn flares. MULTIVITAMIN ORAL Take by mouth. potassium citrate ER (UROCIT-K) 10 mEq (1,080 mg) TbER Take 1,080 mg by mouth once daily. Lactobacillus acidophilus (PROBIOTIC ORAL) Take by mouth. No current facility-administered medications on file prior to visit. Social History Social History Tobacco Use Smoking status: Former Current packs/day: 0.00 Average packs/day: 0.5 packs/day for 15.0 years (7.5 ttl pk-yrs) Types: Cigarettes Start date: 2000 Quit date: 2016 Years since quittin.6 Smokeless tobacco: Never Vaping Use Vaping status: Never Used Substance Use Topics Alcohol use: Yes Comment: occasional- 1-2 times per month Drug use: No Review of Symptoms REVIEW OF SYSTEMS See HPI EXAM: BP 118/62 Pulse 60 Temp 36.7 ?C (98 ?F) Resp 16 Wt 54 kg (119 lb) BMI 22.12 kg/m? Last 6 Encounter Wt Readings: Date: Wt: 07/01/2024 54 kg (119 lb) 01/27/2024 54.9 kg (121 lb) 01/15/2024 53.1 kg (117 lb) 02/06/2023 57.2 kg (126 lb) 02/05/2022 50.8 kg (112 lb) 02/03/2022 50.3 kg (111 lb) General Appearance: Well appearing, alert, in no acute distress, well-hydrated, well nourished.. Neck: Supple, no adenopathy; thyroid symmetric, normal size, no bruits. Lungs: Lungs clear to auscultation. No wheezing, rhonchi, rales.. Heart: RRR without murmur, gallop, or rubs. No ectopy. Abdomen: Abdomen soft, non-distended. Mid-epigastric soreness with no guarding or rebound pain. Bowel sounds normal. No masses, organomegaly. Health Maintenance List Depression Screening Never done Anxiety Screening Never done Mammogram Screening due on 02/07/2024 RSV Vaccine(1 - 1-dose 60+ series) due on 01/14/2025 Shingrix Vaccine(1 of 2) due on 01/15/20 (more content not included)...[facility]08-19-2024 Telephone encounter Note* Telephone Encounter - Niesha Cordoba RN - 06/29/2024 10:28 AM EDT Last OV 02/06/23. [employer] message sent to Pt to get annual appt scheduled. Requested Prescriptions Pending Prescriptions Disp Refills estradiol (ESTRACE) 0.01 % (0.1 mg/gram) vaginal cream 42.5 g 3 Sig: Use 1 g vaginally two times a week. clobetasol (TEMOVATE) 0.05 % ointment 60 g 3 Sig: apply a pea-sized amount to vulva qhs. May use 1-2 times daily for 7-10 days prn flares. Niesha Cordoba RN [facility]08-19-2024 Miscellaneous Notes* Telephone Encounter - Niesha Cordoba RN - 06/29/2024 10:28 AM EDT Last OV 02/06/23. [employer] message sent to Pt to get annual appt scheduled. Requested Prescriptions Pending Prescriptions Disp Refills estradiol (ESTRACE) 0.01 % (0.1 mg/gram) vaginal cream 42.5 g 3 Sig: Use 1 g vaginally two times a week. clobetasol (TEMOVATE) 0.05 % ointment 60 g 3 Sig: apply a pea-sized amount to vulva qhs. May use 1-2 times daily for 7-10 days prn flares. Niesha Cordoba RN documented in this encounterOhiohealth Van [facility]05-01-2024 NotePatient Outreach (INTMMN) JUAN R GARCIA ([id number]) 1965 F Date Time Provider Department 03/11/24 ALEJO FLETCHER INTMMN During your visit today, we recorded the following information about you: Allergies As of Date: 03/11/2024 Noted Allergy Reaction NITROFURANTOIN 10/16/2016 14 - Other: See Comments Comments: Chest pain, sob, and body aches YEAST, DRIED 11/27/2005 16 - Unknown Date Reviewed: 01/27/2024 Reviewed by: Jimmy Dillard MA - Fully Assessed Visit Diagnosis:Encounter for screening mammogram for breast cancer [Z12.31] Order(s):MEAGHAN SCREENING [[id number]] Order #: [id number] FUTURE Prescriptions as of 03/16/2024 - MULTIVITAMIN ORAL Take by mouth. - estradiol (ESTRACE) 0.01 % (0.1 mg/gram) vaginal cream Use 1 g vaginally two times a week. - clobetasol (TEMOVATE) 0.05 % ointment apply a pea-sized amount to vulva qhs. May use 1-2 times daily for 7-10 days prn flares. - potassium citrate ER (UROCIT-K) 10 mEq (1,080 mg) TbER Take 1,080 mg by mouth once daily. - Lactobacillus acidophilus (PROBIOTIC ORAL) Take by mouth. Meds Comments as of 10/27/2018: OTC Probiotic Problem List As Of Date 03/11/2024 Noted Resolved Calculus of kidney [N20.0] 11/27/2005 Personal history of tuberculosis [Z86.11] 12/29/2005 ABNORMAL FINDINGS NEC [R68.89] 12/29/2005 01/14/2008 Tobacco Use Disorder [F17.200] 12/29/2005 04/01/2010 CHEST PAIN UNSPECIFIED [R07.9] 12/29/2005 01/14/2008 OTITIS EXTERNA [H60.399] 02/02/2006 01/14/2008 PAIN LEG [M79.609] 11/18/2006 01/14/[address] or female climacteric st*01/14/2008 09/20/2015 DIARRHEA NOS [R19.7] 03/20/2008 08/18/2008 Internal hemorrhoids without mention of complic*04/27/2008 Irritable bowel syndrome [K58.9] 08/18/2008 COPD (Chronic Obstructive Pulmonary Disease) [J*04/01/2010 Vertigo [R42] 04/01/2010 Neck pain [M54.2] 04/01/2010 Decreased libido [R68.82] 10/19/2013 05/23/2020 Hypotestosteronism [E34.9] 10/19/2013 Encounter for screening for malignant neoplasm *10/27/2015 10/27/2015 Encounter for gynecological examination without*01/18/2016 Smoker [F17.200] 01/18/2016 12/21/2016 Lichen sclerosus et atrophicus [L90.0] Well adult exam [Z00.00] 01/18/2016 Stage 3a chronic kidney disease (HCC) [N18.31] 10/29/2017 Diverticulosis of intestine without bleeding [K*06/24/2018 History of cervical cancer [Z85.41] 11/11/1998 05/23/2020 Ex-smoker [Z87.891] 01/18/2016 Lung nodule [R91.1] 11/08/2021 Elevated hemoglobin A1c [R73.09] 02/06/2022 Encounter for lipid screening for cardiovascula*01/15/2024 Neoplasm of uncertain behavior of skin of chest*01/15/2024 AK (actinic keratosis) [L57.0] 01/27/2024 Lung nodules [R91.8] 01/28/2024 Encounter Status:Closed by InspireMD DashbidUSEAgustina on 03/16/24[facility] 01-29-2024 Miscellaneous Notes* Telephone Encounter - Jimmy Dillard MA - 01/29/2024 8:27 AM EDT Patient notified and voiced understanding. Jimmy Dillard MA * Telephone Encounter - Alejo Fletcher MD - 01/28/2024 5:18 PM EDT Let patient know CT chest shows the lung nodules are stable. Does not need any further f/u documented in this encounterOhiohealth [facility]03-18-2024 Miscellaneous Notes* Telephone Encounter - Xochilt Rodriguez PA-C - 01/27/2024 2:15 PM EDT Noted. * Telephone Encounter - Varun Ridley LPN - 01/27/2024 2:05 PM EDT Reviewed message with pt. Pt advises that she has an appointment with Dr Storey but does not remember when it is off the top of her head. Advises that she usually follows yearly or every [address] Storey wants to see her back. Pt will complete lab work and urine as advised. Varun Ridley LPN * Telephone Encounter - Xochilt Rodriguez PA-C - 01/27/2024 1:54 PM EDT Noted. It's just that her kidney function appears worse than her baseline. When does she see dr. Storey next? Xochilt Rodriguez PA-C * Telephone Encounter - Varun Ridley LPN - 01/27/2024 1:01 PM EDT Pt notified of results and instructions. Pt reports that her renal tests will always be high d/t she has stage [address] sees [address] Rios and nephrology. She couldn't remember her attending anesthesiologist's name at this moment. She has had two lithotripsy's done. Will repeat labs and do urine as instructed unless office calls back advising she doesn't need to do this. Varun Ridley LPN * Telephone Encounter - Xochilt Rodriguez PA-C - 01/27/2024 12:43 PM EDT Let patient know that her A1c is 6.1 which is stable. Continue to watch diet. Cholesterol is normal. Blood counts wnl. Her renal function is decreased. Looks like she was dehydrated as well.. need repeat done in 2 weeks. Hydrate well prior. Need to get the urine completed as well. Xochilt Rodriguez PA-C documented in this encounterOhiohealth Van Wert Hospital03-18-2024 History of Present illness Narrative* Alejo Fletcher MD - 01/27/2024 8:00 AM EDT Chief Complaint Patient presents with: Lesion Removal HPI Juan R Pollack is a 58 year old female who presents here today for Excision/biopsy on left chest. Patient with hx of CKD seeing renal, diverticulosis, IBS, COPD, as well as those reviewed and addressed below. Has a abnormal growth on the left upper chest concerning for BCC. Past medical history, appointments, medications, allergies reviewed. Previous Medical History PAST MEDICAL HISTORY Diagnosis Date Adjustment disorder with depressed mood 01/14/2008 Calculus of kidney CKD (chronic kidney disease) stage 3, GFR 30-59 ml/min ([facility]) 10/29/[address] Storey COPD (Chronic Obstructive Pulmonary Disease) 04/01/2010 Corpus luteum cyst or hematoma Decreased libido 10/19/2013 Diverticulosis of intestine without bleeding 06/24/2018 Elevated hemoglobin A1c 02/06/2022 Ex-smoker 01/18/2016 Quit 2011. Smoked for about 20 yrs up to 1 PPD History of cervical cancer 1998 Hypotestosteronism 10/19/2013 Internal hemorrhoids without mention of complication 04/27/2008 Irritable bowel syndrome 08/18/2008 Lichen sclerosus et atrophicus 2015 biopsy done Neck pain 04/01/2010 Personal history of tuberculosis 12/29/2005 Was treated. Stage 3a chronic kidney disease (HCC) 10/29/[address] Storey Vertigo 04/01/2010 rare Previous Surgical History PAST SURGICAL HISTORY Procedure Laterality Date COLONOSCOPY FLX DX W/COLLJ SPEC WHEN PFRMD 10/27/2015 Colonoscopy, repeat 10 yrs COLONOSCOPY W/BIOPSY SINGLE/MULTIPLE 04/27/2008 LITHOTRIPSY XTRCORP SHOCK WAVE 11/11/1995 Lithotripsy LITHOTRIPSY XTRCORP SHOCK WAVE Right 02/07/[address] 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 Family History FAMILY HISTORY Problem Relation Age of Onset Cervical Cancer Mother Diabetes Mother Hypertension Father Stroke Father Aortic and brain aneurysm 2014 Heart Father other (nephrolithiasis) Father also in Maternal aunt Breast Cancer Maternal Grandmother Coronary Artery Disease Paternal Uncle Patient Allergies ALLERGIES Allergen Reactions Nitrofurantoin Other: See Comments Chest pain, sob, and body aches Yeast, Dried Unknown Current Medications Current Outpatient Medications on File Prior to Visit Medication Sig MULTIVITAMIN ORAL Take by mouth. estradiol (ESTRACE) 0.01 % (0.1 mg/gram) vaginal cream Use 1 g vaginally two times a week. clobetasol (TEMOVATE) 0.05 % ointment apply a pea-sized amount to vulva qhs. May use 1-2 times daily for 7-10 days prn flares. potassium citrate ER (UROCIT-K) 10 mEq (1,080 mg) TbER Take 1,080 mg by mouth once daily. Lactobacillus acidophilus (PROBIOTIC ORAL) Take by mouth. No current facility-administered medications on file prior to visit. Social History Social History Tobacco Use Smoking status: Former Packs/day: 0.50 Years: 15.00 Additional pack years: 0.00 Total pack years: 7.50 Types: Cigarettes Quit date: 2015 Years since quittin.2 Smokeless tobacco: Never Vaping Use Vaping Use: Never used Substance Use Topics Alcohol use: Yes Comment: occasional- 1-2 times per month Drug use: No Review of Symptoms REVIEW OF SYSTEMS See HPI EXAM: BP 118/86 (BP Site: Left Arm, BP Position: Sitting, BP Cuff Size: Regular Adult) Pulse (!) 56 Resp 16 Wt 54.9 kg (121 lb) BMI 22.49 kg/m General Appearance: Well appearing, alert, in no acute distress, well-hydrated, well nourished.. Skin: area does look smaller today and not as irritated looking. Suspect this is an AK and not a BCC. Health Maintenance List Mammogram Screening due on 02/07/2024 Influenza Vaccine(1) due on 05/10/2024 Depression Assessment due on 11/10/2024 RSV Vaccine(1 - 1-dose 60+ series) due on 01/14/2025 Shingrix Vaccine(1 of 2) due on 01/14/2025 Covid-19 Vaccine(2 - season) due on 01/14/2025 Pneumococcal Vaccine(1 of 2 - PCV) due on 01/09/2029 Annual PCP Team Chronic Disease Visit due on 01/14/2025 Serum Creatinine due on 01/19/2025 Hemoglobin/Hematocrit due on 01/19/2025 Colorectal Cancer Screening due on 10/27/2025 DTaP,Tdap,Td Vaccine(3 - Td or Tdap) due on 01/17/2026 Diabetes Screening due on 01/19/2027 Lipid Screening due on 01/19/2029 Alpha-1 Antitrypsin Deficiency Screening Discontinued Spirometry Discontinued Pap Testing Discontinued HPV Testing Discontinued Hepatitis C Screening Discontinued HIV Screening Discontinued Data reviewed A/P ASSESSMENT/PLAN: 1. AK (actinic keratosis) - ICD9: 702.0, ICD10: L57.0 - feel that we can try do cryo at this time and if returns would proceed to excisional biopsy. Discussed change of plans with patient who was in agreement. Verbal consent given. Area was Tx with Cryowith a 40 sec thaw phase. Patient tolerated well. F/u routine or sooner if this returns. Alejo Fletcher MD documented in this encounter[facility] Evaluation note* Diagnosis Stage 3a chronic kidney disease (HCC)- Primary documented in this encounter [facility]03-[facility] Miscellaneous Notes* Telephone Encounter - Chapin Gleason RN - 01/16/2024 4:16 PM EST Phoned pt and given provider's message below with verbalized understanding. Pt agreeable. Transferred to pss. * Telephone Encounter - Alejo Fletcher MD - 01/16/2024 3:46 PM EST Let patient know that after her visit yesterday and reviewing her chart she had a CT of her abdomenin the past that showed a small lung nodule and this needs followed up on with a chest CT. Order placed. documented in this encounterOhio[facility]03-06-2024 Instructions* Patient Instructions* Alejo Fletcher MD - 01/15/2024 7:11 PM EST You want to get the shingrix vaccine for the prevention of shingles or the RSV vaccine check with insurance to see if cover and if you can get it at your doctors office or a pharmacy. Check to see if ok to take 600-750 mg of calcium (tums) twice a day and 2000 international unit(s) 's of vit D a day. documented in this encounterOhio[facility]03-06-2024 History of Present illness Narrative* Alejo Fletcher MD - 01/15/2024 6:48 PM EST Chief Complaint Patient presents with: Physical HPI Juan R Pollack is a 58 year old female who presents here today for Physical. Patient with hx of CKD seeing renal, diverticulosis, IBS, COPD, as well as those reviewed and addressed below. No new concerns No recent ER visits Had to have some renal stones twice this past year. Past medical history, appointments, medications, allergies reviewed. Previous Medical History PAST MEDICAL HISTORY Diagnosis Date Adjustment disorder with depressed mood 01/14/2008 Calculus of kidney CKD (chronic kidney disease) stage 3, GFR 30-59 ml/min ([facility]) 10/29/[address] Storey COPD (Chronic Obstructive Pulmonary Disease) 04/01/2010 Corpus luteum cyst or hematoma Decreased libido 10/19/2013 Diverticulosis of intestine without bleeding 06/24/2018 Elevated hemoglobin A1c 02/06/2022 Ex-smoker 01/18/2016 Quit 2011. Smoked for about 20 yrs up to 1 PPD History of cervical cancer 1998 Hypotestosteronism 10/19/2013 Internal hemorrhoids without mention of complication 04/27/2008 Irritable bowel syndrome 08/18/2008 Lichen sclerosus et atrophicus 2015 biopsy done Neck pain 04/01/2010 Personal history of tuberculosis 12/29/2005 Was treated. Vertigo 04/01/2010 rare Previous Surgical History PAST SURGICAL HISTORY Procedure Laterality Date COLONOSCOPY FLX DX W/COLLJ SPEC WHEN PFRMD 10/27/2015 Colonoscopy, repeat 10 yrs COLONOSCOPY W/BIOPSY SINGLE/MULTIPLE 04/27/2008 LITHOTRIPSY XTRCORP SHOCK WAVE 11/11/1995 Lithotripsy LITHOTRIPSY XTRCORP SHOCK WAVE Right 02/07/[address] 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 Family History FAMILY HISTORY Problem Relation Age of Onset Cervical Cancer Mother Diabetes Mother Hypertension Father Stroke Father Aortic and brain aneurysm 2014 Heart Father other (nephrolithiasis) Father also in Maternal aunt Breast Cancer Maternal Grandmother Coronary Artery Disease Paternal Uncle Patient Allergies ALLERGIES Allergen Reactions Nitrofurantoin Other: See Comments Chest pain, sob, and body aches Yeast, Dried Unknown Current Medications Current Outpatient Medications on File Prior to Visit Medication Sig MULTIVITAMIN ORAL Take by mouth. estradiol (ESTRACE) 0.01 % (0.1 mg/gram) vaginal cream Use 1 g vaginally two times a week. clobetasol (TEMOVATE) 0.05 % ointment apply a pea-sized amount to vulva qhs. May use 1-2 times daily for 7-10 days prn flares. potassium citrate ER (UROCIT-K) 10 mEq (1,080 mg) TbER Take 1,080 mg by mouth once daily. Lactobacillus acidophilus (PROBIOTIC ORAL) Take by mouth. vibegron (GEMTESA) 75 mg tablet Take 75 mg by mouth once daily. (Patient not taking: Reported on 01/15/2024) cyanocobalamin, vitamin B-12, (VITAMIN B-12 ORAL) Take by mouth. (Patient not taking: Reported on 01/15/2024) hydrOXYzine HCl (ATARAX) 25 mg tablet Take 1 tablet by mouth three times daily as needed for itching/rash. (Patient not taking: Reported on 01/15/2024) No current facility-administered medications on file prior to visit. Social History Social History Tobacco Use Smoking status: Former Packs/day: 0.50 Years: 15.00 Additional pack years: 0.00 Total pack years: 7.50 Types: Cigarettes Quit date: 2016 Years since quittin.1 Smokeless tobacco: Never Vaping Use Vaping Use: Never used Substance Use Topics Alcohol use: Yes Comment: occasional- 1-2 times per month Drug use: No Review of Symptoms REVIEW OF SYSTEMS GENERAL: No weight loss, malaise or fevers HEENT: Negative for frequent or significant headaches, No changes in hearing. no nose bleeds or other nasal problems. Slight dry eyes. NECK: Negative for lumps, goiter, pain and significant neck swelling RESPIRATORY: Negative for cough, hemoptysis, wheezing, COPD, dyspnea or shortness of breath CARDIOVASCULAR: Negative for chest pain, leg swelling, hypertension, CHF or palpitations GI: No nausea, vomiting, or diarrhea, No heartburn or reflux symptoms, and no blood : No history of dysuria, frequency or blood MUSCULOSKELETAL: Negative for joint pain or swelling, back pain or muscle pain SKIN: Negative for lesions, rash, and itching PSYCH: Negative for sleep disturbance, mood disorder and recent psychosocial stressors HEMATOLOGY/LYMPHOLOGY: Negative for prolonged bleeding, bruising easily or swollen nodes ENDOCRINE: Negative for cold or heat intolerance, polyuria, polydipsia and goiter NEURO: No history of headaches, syncope, paralysis, seizures or tremors EXAM: BP 114/70 (BP Site: Left Arm, BP Position: Sitting, BP Cuff Size: Regular Adult) Pulse 70 Resp 14 Ht 156.2 cm (5' 1.5) Wt 53.1 kg (117 lb) BMI 21.75 kg/m Last 4 Encounter Wt Readings: Date: Wt: 01/15/2024 53.1 kg (117 lb) 02/06/2023 57.2 kg (126 lb) 02/05/2022 50.8 kg (112 lb) 02/03/2022 50.3 kg (111 lb) General Appearance: Well appearing, alert, in no acute distress, well-hydrated, well nourished.. Skin: Skin color, texture, turgor normal, no suspicious rashes. Has a abnormal growth on the left upper chest concerning for BCC. Head: Normocephalic, no masses, lesions, tenderness or abnormalities. Eyes: Anicteric sclera. Pupils are equally round and reactive to light. Extraocular movements are intact. . Ears: External ears, TM's normal, canals clear. Nose/Sinuses: Nares normal, septum midline, mucosa normal, no drainage or sinus tenderness. Oropharynx: Lips, mucosa, and tongue normal, teeth and gums normal, oropharynx normal. Neck: Supple, no adenopathy; thyroid symmetric, normal size, no bruits. Lungs: Lungs clear to auscultation. No wheezing, rhonchi, rales.. Heart: RRR without murmur, gallop, or rubs. No ectopy. Abdomen: Normal abdominal exam, Abdomen soft, non-tender. Bowel sounds normal. No masses, organomegaly. Extremities: No deformities, edema, skin discoloration, Good capillary refill. . Musculoskeletal: Spine range of motion normal. Muscular strength intact, No joint swelling, deformity, or tenderness. Peripheral Pulses: Normal. Neurologic: Gait normal. Reflexes normal and symmetric. Sensation to light touch and crainal nerves2-12 intact.. Health Maintenance List Pneumococcal Vaccine(1 of 2 - PCV) Never done Alpha-1 Antitrypsin Deficiency Screening Never done Shingrix Vaccine(1 of 2) Never done Annual PCP Team Chronic Disease Visit due on 02/03/2023 Serum Creatinine due on 02/03/2023 Hemoglobin/Hematocrit due on 02/03/2023 Influenza Vaccine(1) due on 07/12/2023 Covid-19 Vaccine(2 - season) due on 07/12/2023 Depression Assessment Never done RSV Vaccine(1 - 1-dose 60+ series) Never done Mammogram Screening due on 02/07/2024 Diabetes Screening due on 02/03/2025 Colorectal Cancer Screening due on 10/27/2025 DTaP,Tdap,Td Vaccine(3 - Td or Tdap) due on 01/17/2026 Lipid Screening due on 02/03/2027 Spirometry Discontinued Pap Testing Discontinued HPV Testing Discontinued Hepatitis C Screening Discontinued HIV Screening Discontinued Data reviewed A/P ASSESSMENT/PLAN: 1. Well adult exam - ICD9: V70.0, ICD10: Z00.00 (primary diagnosis) - Counseled on healthy diet and regular exercise - Calcium intake with supplements or by diet of 1000 mg/day for under 50, 1200- 1500 mg/day for 50+ - Follow up for annual exam in one year - Advised on Shingrix and RSV. - LIPID PANEL, NONFASTING 2. Elevated hemoglobin A1c - ICD9: 790.29, ICD10: R73.09 Check - HGB A1C 3. Stage 3a chronic kidney disease (HCC) - ICD9: 585.3, ICD10: N18.31 - await labs - managed per - COMP METABOLIC PANEL - URINALYSIS, WITH MICROSCOPIC - CBC + DIFF 4. Pulmonary emphysema, unspecified emphysema type (HCC) - ICD9: 492.8, ICD10: J43.9 - c;clinically stable no need for Tx. 5. Irritable bowel syndrome with diarrhea - ICD9: 564.1, ICD10: K58.0 - stable 6. Encounter for lipid screening for cardiovascular disease - ICD9: V77.91, V81.2, ICD10: Z13.220, Z13.6 Check - LIPID PANEL, NONFASTING 7. Neoplasm of uncertain behavior of skin of chest - ICD9: 238.2, ICD10: D48.5 - patient to f/u for excisional biopsy. F/u in a year for WAE sooner if issues. F/u near future for lesion removal. Alejo Fletcher MD documented in this [facility]09-26-2023 History of Present illness Narrative* Ann Matthews Ma - 08/06/2023 10:26 AM EDT View External Labs - Chemistry [ID [id number]] documented in this [facility]09-15-2023 History of Present illness Narrative* Varun Ridley LPN - 07/26/2023 10:14 AM EDT Scan on 07/26/2023 9:37 AM by Provider, External, PA-C: Chemistry documented in this [facility]06-07-2023 History of Present illness Narrative* Jimmy Dillard MA - 04/17/2023 7:36 PM EDT Scan on 04/14/2023 4:33 PM by External Provider, PASuhailC: Miscellaneous Lab Jimmy Dillard MA documented in this [facility]04-19-2023 History of Present illness Narrative* Jimmy Dillard MA - 02/27/2023 1:00 PM EDT Scan on 02/22/2023 9:41 AM by External Provider: X-ray Jimmy Dillard MA documented in this [facility]04-06-2023 History of Present illness Narrative* Jimmy Dillard MA - 02/14/2023 12:49 PM EDT Scan on 02/12/2023 12:21 PM by External Provider: ROSA Dillard MA documented in this encounterOhio[facility]-30-[address] Rios [facility] February 07, 2023 1:53pm Note Date/Time February 07, 2023 1:5 1pm [facility] Medical Records Department [address] [place] [address] Instructions for Home/Discharge Instructions 02/07/23 1351 MR#: [id number] Acct: [id number] Name: JUAN R POLLACK Rep #:[id number] : 1965 57 From: Avelina Granger PCP: Dr. Alejo Fletcher MD Status:REG [facility] Discharge Instructions Diet Discharge Diet: No restrictions Activity Discharge Activity: Return to Normal Activity and May Not Drive (While taking pain medication) May resume sexual activity in: No Restrictions Dressing / Incision Call your doctor if you observe: Fever of 101 or Higher, Inability to urinate and Inability to have a bowel movement Follow Up Care Please Follow Up With: Avelina Rios MD When: Call the office for appointment to be seen in 2 to 3 weeks with a KUB Test Results: Test results from this visit will be discussed in further detail at your follow- up appointment, if applicable. Discharge Plan Admission Attending Provider: Avelina Rios Primary Care Provider: Alejo Fletcher Discharge Orders/Prescriptions Prescriptions: New oxycodone-acetaminophen [Percocet] 5-325 mg tablet 1 tab PO Q8H PRN (Reason: pain) 3 Days Qty: 10 0RF cephalexin [cephalexin] 500 mg capsule 500 mg PO Q12 3 Days Qty: 6 0RF Continued oxycodone-acetaminophen 1 TABLET tablet 1 tab PO Q6H PRN PRN (Reason: severe pain) 5 Days Qty: 20 0RF multivitamin Tablet 1 tab PO DAILY clobetasol 0.05 % Cream 1 applic TOPICAL PRN PRN (Reason: Rash) Vitamin B-12 50 mcg Tablet 50 mcg PO DAILY potassium citrate 10 mEq (1,080 mg) tablet extended release 10 meq PO DAILY Label Comments: TAKE 1 TABLET EVERY DAY BY MOUTH FOR 90 DAYS estradiol 0.01 % (0.1 mg/gram) cream 1 applic VAGINAL .TWICE WEEKLY Label Comments: Use 1 gram vaginally two times a week DIRECTED Probiotic 10 billion cell Capsule 10,000 mmu cells PO DAILY Gemtesa 75 mg Tablet 75 mg PO DAILY Referrals / Follow Up: Alejo Fletcher MD [Primary Care Provider] - Disposition Disposition (needs filled in before D/C Order can be placed): Home, Self Care 02/07/23 0483<Electronically signed by Avelina Rios MD>Avelina Rios MD CC: Dr. Alejo Fletcher MD ~ Signed [facility] Work Phone: [phone] Miscellaneous Notes* Telephone Encounter - Fatmata Naylor Cma - 02/07/2023 11:59 AM EDT [employer] message sent to patient Fatmata Naylor Sana * Telephone Encounter - Jia Alvarado APRN.CNP - 02/07/2023 11:26 AM EDT Please let patient know her mammogram is normal. She should continue with annual screenings. documented in this encounterOhio[facility]03-30-2023 Miscellaneous Notes* Letter - Mammography Coordinator - 02/07/2023 11:24 AM EDT February 08, 2023 PID: [id number] Juan R Pollack [address] [place] [address] Dear Ms. Nataliia Pollack, We are pleased to inform you that the results of your recent breast imaging exam on 02/06/2023 are normal. Early detection of cancer is very important. We also understand recommendations regarding breast cancer screening are controversial. Please discuss with your primary care provider which strategy is best for you and whether a mammogram is right for you. Your imaging studies and report will be kept [facility] as part of [facility] permanent medical record and are available for your continuing care. Thank you for allowing us to help in meeting your health care needs. Sincerely, Dr. Garcia Interpreting Radiologist [facility] (Normal over 40) documented in this encounterOhiohealth [facility]03-29-2023 Miscellaneous Notes* Addendum Note - Tanya Brar MD - 02/06/2023 10:11 AM EDTAddended by: TANYA BRAR on: 02/06/2023 10:11 AM Modules accepted: Orders documented in this encounterOhio[facility]03-29-2023 History of Present illness Narrative* Deyanira Salazar RT(Agustina) - 02/06/2023 9:10 AM EDT Radiology Service Progress Note PATIENT NAME: Juan R Pollack DATE OF SERVICE: February 06, 2023 TIME: 8:59 AM PATIENT IDENTITY VERIFICATION COMPLETED USING TWO (2) IDENTIFIERS: Name and Date of confirmedby patient verbally. FALL SCREENING: Has the patient had 2 falls in the last year or 1 fall with injury or currently using an Ambulatory Assistive Device (Walker, Cane, Wheelchair, Crutches, etc.)? No PATIENT GENDER DATA: Female. status: : No status: NO. PATIENT RELEVANT IMPLANT DATA REVIEWED: Not Applicable RADIOLOGY DEPARTMENT: Mammography PERIPHERAL IV DATA: Not applicable SIGNED BY: RT Liborio(R) February 06, 2023 8:59 AM documented in this encounterOhio[facility]03-29-2023 History of Present illness Narrative* Tanya Brar MD - 02/06/2023 8:39 AM EDT Juan R is a 57 year old who presents for an annual gynecologic exam with complaints, seem like having more flares in vulva and feels swollen and like sores but cream doesn't hurt it so skin isn't actually open . Using estrogen cream 3 times a week. Uses the other one only w/ a flare up. Having a lithotripsy tomorrow for kidney stones, has had intermediate. Postmenopausal: yes HRT use: No. Last Pap: 01/30/2010 normal HPV: negative History of abnormal pap: No Last mammogram: 2022 pending History of abnormal mammogram: No Sexually active: Yes OB History T1 L1 SAB0 IAB0 Ectopic0 Multiple0 Live Births0 [employer] History LMP: Hysterectomy Age at Menarche: Age at First : Age at Menopause: [employer] History Comments: Sexual Activity: Yes; Male; hysterectomy Contraception: Surgical PAST MEDICAL HISTORY Diagnosis Date Adjustment disorder with depressed mood 01/14/2008 Calculus of kidney CKD (chronic kidney disease) stage 3, GFR 30-59 ml/min ([facility]) 10/29/[address] Storey COPD (Chronic Obstructive Pulmonary Disease) 04/01/2010 Corpus luteum cyst or hematoma Decreased libido 10/19/2013 Diverticulosis of intestine without bleeding 06/24/2018 Elevated hemoglobin A1c 02/06/2022 Ex-smoker 01/18/2016 Quit 2011. Smoked for about 20 yrs up to 1 PPD History of cervical cancer 1998 Hypotestosteronism 10/19/2013 Internal hemorrhoids without mention of complication 04/27/2008 Irritable bowel syndrome 08/18/2008 Lichen sclerosus et atrophicus 2015 biopsy done Neck pain 04/01/2010 Personal history of tuberculosis 12/29/2005 Was treated. 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 FAMILY HISTORY Problem Relation Age of Onset Cervical Cancer Mother Diabetes Mother Hypertension Father Stroke Father Aortic and brain aneurysm 2014 Heart Father other (nephrolithiasis) Father also in Maternal aunt Breast Cancer Maternal Grandmother Coronary Artery Disease Paternal Uncle SOCIAL HISTORY Social History Tobacco Use Smoking status: Former Packs/day: 0.50 Years: 15.00 Pack years: 7.50 Types: Cigarettes Quit date: 2016 Years since quittin.2 Smokeless tobacco: Never Vaping Use Vaping Use: Never used Substance Use Topics Alcohol use: Yes Comment: occasional- 1-2 times per month Drug use: No REVIEW OF SYSTEMS Abdomen: No abdominal pain, nausea, vomiting, diarrhea, or constipation. No bloating, early satiety, indigestion, or increased flatulence. Bladder: No dysuria, gross hematuria, urinary frequency, urinary urgency, or incontinence Breast: No breast lumps, nipple d/c, overlying skin changes, redness or skin retraction Allergies and current medication updated:Yes EXAM: BP 128/86 Wt 126 lb (57.2kg) GENERAL: pleasant, female in no apparent distress HEENT: Normocephalic, atraumatic, mucus membranes moist, and no lesions NECK: Supple, full range of motion, no adenopathy, and thyroid normal DERMATOLOGY: Normal, without lesions, non-icteric, and non-hirsute BREAST: soft, non-tender, symmetric, no dominant mass, normal nipple-areolar complex, no lymphadenopathy, and no nipple discharge CHEST: Normal inspiratory effort ABDOMEN: soft, non-tender, and no masses PELVIC: normal Bartholin's glands, urethra, Erath's glands, no vulvar lesions, good vaginal support, physiologic discharge present, normal appearing perineal body and perianal region, cervix surgically absent, some atrophy, loss of architecture around clitoral morgan and labia minora, no ulcerations or hyperpigmentation BIMANUAL: no adnexal masses, non-tender, and uterus surgically absent RECTOVAGINAL: deferred. NEURO: alert and oriented x3,exam grossly non-focal EXTREMITIES: normal ASSESSMENT/PLAN: 1) Health maintenance: Pap/HPV screening no longer needed Mammogram ordered d/w her lichen sclerosis and plan w/ that. cont. estrogen cream and temovate and use vistaril prn itching 2) Follow up one year or sooner as needed Tanya Brar MD documented in this encounterOhio[facility]10-04-2022 Miscellaneous Notes* Telephone Encounter - Viola Parker - 08/14/2022 10:46 AM EDT Called PT LVM to call back and schedule. Viola PSS * Telephone Encounter - Jimmy Dillard MA - 08/10/2022 11:22 AM EDT Help patient schedule a complete PE on or after 02/03/2023 Jimmy Dillard MA documented in this encounterOhio[facility]09-30-2022 Miscellaneous Notes* Telephone Encounter - Alejo Fletcher MD - 08/10/2022 9:08 AM EDT Help patient schedule a complete PE on or after 02/03/2023 Scripts sent The following approved medication requests have been transmitted electronically. Requested Prescriptions Signed Prescriptions Disp Refills varenicline (CHANTIX) 0.5 mg (11)- 1 mg (42) tablet 53 tablet 0 Sig: Take 0.5 mg by mouth once daily on Days 1 through 3, THEN 0.5 mg twice daily on Days 4 through7, THEN 1 mg twice daily on Day 8 and thereafter varenicline (CHANTIX) 1 mg tablet 56 tablet 4 Sig: Take 1 tablet by mouth twice daily. Alejo Fletcher MD documented in this encounterOhio[facility]05-24-2022 Miscellaneous Notes* Telephone Encounter - Judith Fuller LPN - 04/03/2022 2:19 PM EDT did call the Insurance company, the insurance company is saying the Lab made mistake. Lab submitted all her labs a medical, 2 were medical because they were for a dx diabetes and kidney function, the other 2 were for routine physical. Gave Jonas number for billing. He is also asking to talk to Kat Clark/Admin, called transferred to Neonatal Pediatric Nurse. Judith Fuller LPN * Telephone Encounter - Chrissie Narvaez LPN - 04/03/2022 12:13 PM EDT Pt's spouse Jonas returned the call & was notified of pcp's message. Jonas states he will check with insurance company to ask what exactly they are asking for. Chrissie Narvaez LPN * Telephone Encounter - Mica Strange RN - 04/03/2022 11:41 AM EDT Called and left a voicemail for the Patient to call back and ask for a nurse to receive the providers message. Mica Strange RN * Telephone Encounter - Alejo Fletcher MD - 04/03/2022 11:08 AM EDT Let know that the orders for the A1c (blood sugar test) and lipid panel were billed under the physical exam diagnosis so I have no idea what other code his insurance is looking for? The CMP electrolyte panel and the CBC (blood count) Were billed under her diagnosis of stage 3 chronic kidneydisease because this is why I ordered them so they were billed correctly. If his insurance is not covering the ones ordered under the physical exam code then I wonder if their plan is set up to were they have a deductible no matter how they are coded? * Telephone Encounter - Chrissie Narvaez LPN - 04/03/2022 9:47 AM EDT Pt's returned the call & states all of the labs drawn on 02/03/22 were coded incorrectly. HGBA1C, Lipids, cbc & comp. Chrissie Narvaez LPN * Telephone Encounter - Fatmata Soria MA - 04/03/2022 9:15 AM EDT Unable to reach patient. Left VM to return call to office. Please read below and advise. Fatmata Soria MA * Telephone Encounter - Alejo Fletcher MD - 04/02/2022 1:27 PM EDT Does patient know which labs they were billed for? * Telephone Encounter - Rosangela Wynn LPN - 04/02/2022 9:07 AM EDT Patient calling back expecting to get a phone call back about this issue please. * Telephone Encounter - Dotty Herring RN - 04/02/2022 8:17 AM EDT Patient's calls and states that patient had a physical done in January. Patient states that labs are supposed to be included in the physical, but with how labs were coded patient was charged $200 for labs. asking if this can be coded different so that it is covered under insurance since it was supposed to be yearly labs? Please review and advise, Dotty Herring RN documented in this encounterOhio[facility]-29-[facility]22 Miscellaneous Notes* Letter - Mammography Coordinator - 02/06/2022 4:38 PM EDT February 06, 2022 PID: [id number] Juan R Pollack [address] [place] [address] Dear Ms. Nataliia Pollack, We are pleased to inform you that the results of your recent breast imaging exam on 02/06/2022 are normal. Early detection of cancer is very important. We also understand recommendations regarding breast cancer screening are controversial. Please discuss with your primary care provider which strategy is best for you and whether a mammogram is right for you. Your imaging studies and report will be kept on file [facility] as part of your permanent medical record and are available for your continuing care. Thank you for allowing us to help in meeting your health care needs. Sincerely, Dr. Taylor Interpreting Radiologist [facility] (Normal over 40) documented in this encounterOhiohealth Van W[facility]03-29-2022 Miscellaneous Notes* Telephone Encounter - Rosangela Wynn LPN - 02/06/2022 1:49 PM EDT Patient returned call and went over results, notes from Dr Fletcher with understanding. * Telephone Encounter - Varun Ridley LPN - 02/06/2022 1:43 PM EDT Left message for pt to contact office for results. Varun Ridley LPN * Telephone Encounter - Alejo Fletcher MD - 02/06/2022 12:18 PM EDT Let patient know her blood sugar test called the A1c test was elevated at 6.1%. Normal is 4.3-5.6% and diabetes is 6.5% and higher. This means she is at increased risk of developing diabetes. She should work on diet with reduced sugars, carbs, and starches along with increased exercise. Her lipid panel and CBC were ok. Her CMP was ok except for the stable kidney impairment. documented in this encounterOhiohealth [facility]03-29-2022 History of Present illness Narrative* Earnestine Winter Mammo Tech - 02/06/2022 7:30 AM EDT Radiology Service Progress Note PATIENT NAME: Juan R Pollack DATE OF SERVICE: February 06, 2022 TIME: 7:31 AM PATIENT IDENTITY VERIFICATION COMPLETED USING TWO (2) IDENTIFIERS: Name and Date of confirmedby patient verbally. FALL SCREENING: Has the patient had 2 falls in the last year or 1 fall with injury or currently using an Ambulatory Assistive Device (Walker, Cane, Wheelchair, Crutches, etc.)? No PATIENT GENDER DATA: Female. status: : No status: NO. PATIENT RELEVANT IMPLANT DATA REVIEWED: Not Applicable RADIOLOGY DEPARTMENT: Mammography PERIPHERAL IV DATA: Not applicable SIGNED BY: Earnestine Winter [employer] February 06, 2022 7:31 AM documented in this encounterOhiohealth [facility]03-28-2022 History of Present illness Narrative* Tanya Brar MD - 02/05/2022 10:21 AM EDT Juan R is a 56 year old who presents for an annual gynecologic exam with complaints, intermittent flares of lichen sclerosis. Using vaginal estrogen. . Postmenopausal: yes HRT use: No. Last Pap: 01/30/2010 normal HPV: N/A History of abnormal pap: No Last mammogram: 2014 normal Sexually active: Yes OB History T1 L1 SAB0 IAB0 Ectopic0 Multiple0 Live Births0 [employer] History LMP: Hysterectomy Age at Menarche: Age at First : Age at Menopause: [employer] History Comments: Sexual Activity: Yes; Male; hysterectomy Contraception: Surgical PAST MEDICAL HISTORY Diagnosis Date Adjustment disorder with depressed mood 01/14/2008 Calculus of kidney CKD (chronic kidney disease) stage 3, GFR 30-59 ml/min ([facility]) 10/29/[address] Storey COPD (Chronic Obstructive Pulmonary Disease) 04/01/2010 Corpus luteum cyst or hematoma Decreased libido 10/19/2013 Diverticulosis of intestine without bleeding 06/24/2018 Ex-smoker 01/18/2016 Quit 2011. Smoked for about 20 yrs up to 1 PPD History of cervical cancer 1998 Hypotestosteronism 10/19/2013 Internal hemorrhoids without mention of complication 04/27/2008 Irritable bowel syndrome 08/18/2008 Lichen sclerosus et atrophicus 2015 biopsy done Neck pain 04/01/2010 Personal history of tuberculosis 12/29/2005 Was treated. Vertigo 04/01/2010 rare PAST SURGICAL HISTORY Procedure Laterality Date COLONOSCOPY FLX DX W/COLLJ SPEC WHEN PFRMD 10/27/2015 Colonoscopy, repeat 10 yrs COLONOSCOPY W/BIOPSY SINGLE/MULTIPLE 04/27/08 LITHOTRIPSY XTRCORP SHOCK WAVE 1996 Lithotripsy VAGINAL HYSTERECTOMY UTERUS 250 GM/< 1999 carcinoma in situ. FAMILY HISTORY Problem Relation Age of Onset Cervical Cancer Mother Diabetes Mother Hypertension Father Stroke Father Aortic and brain aneurysm 2014 Heart Father other (nephrolithiasis) Father also in Maternal aunt Breast Cancer Maternal Grandmother Coronary Artery Disease Paternal Uncle SOCIAL HISTORY Social History Tobacco Use Smoking status: Former Smoker Packs/day: 0.50 Years: 15.00 Pack years: 7.50 Types: Cigarettes Quit date: 2015 Years since quittin.2 Smokeless tobacco: Never Used Vaping Use Vaping Use: Never used Substance Use Topics Alcohol use: Yes Comment: occasional- 1-2 times per month Drug use: No REVIEW OF SYSTEMS Abdomen: No abdominal pain, nausea, vomiting, diarrhea, or constipation. No bloating, early satiety, indigestion, or increased flatulence. Bladder: No dysuria, gross hematuria, urinary frequency, urinary urgency, or incontinence Breast: No breast lumps, nipple d/c, overlying skin changes, redness or skin retraction Allergies and current medication updated:Yes EXAM: BP 122/76 Ht 5' 1.5 (1.56m) Wt 112 lb (50.8kg) BMI 20.82 kg/(m^2). GENERAL: pleasant, female in no apparent distress HEENT: Normocephalic, atraumatic, mucus membranes moist and no lesions NECK: Supple, full range of motion, no adenopathy and thyroid normal DERMATOLOGY: Normal, without lesions, non-icteric and non-hirsute BREAST: soft, non-tender, symmetric, no dominant mass, normal nipple-areolar complex, no lymphadenopathy and no nipple discharge CHEST: Normal inspiratory effort ABDOMEN: soft, non-tender and no masses PELVIC: normal Bartholin's glands, urethra, Erath's glands, no vulvar lesions, physiologic discharge present, normal appearing perineal body and perianal region, cervix surgically absent, thin white skin around introitus BIMANUAL: no adnexal masses, non-tender and uterus surgically absent RECTOVAGINAL: deferred. NEURO: alert and oriented x3,exam grossly non-focal EXTREMITIES: normal ASSESSMENT/PLAN: 1) Health maintenance: Mammogram ordered Colon cancer screening: up to date with screening pap no ,onger needed lichen sclerosis- cont. w/ vaginal estrogen and steroid as needed 2) Follow up one year or sooner as needed Tanya Brar MD documented in this encounterOhio[facility]03-26-2022 History of Present illness Narrative* Alejo Fletcher MD - 02/03/2022 10:31 AM EDT Chief Complaint Patient presents with: Physical HPI Juan R Pollack is a 56 year old female who presents here today for Above Complaints. and Chronic Medical Conditions.. Patient with hx of CKD seeing renal, diverticulosis, IBS, COPD, as well as those reviewed and addressed below. Patient was seen in [facility] ER in 10/2021 due to renal stone. Had CT that also showed a lung nodule andneeds f/u CT in 6-12 months. Past medical history, appointments, medications, allergies reviewed. Previous Medical History PAST MEDICAL HISTORY Diagnosis Date Adjustment disorder with depressed mood 01/14/2008 Calculus of kidney CKD (chronic kidney disease) stage 3, GFR 30-59 ml/min ([facility]) 10/29/[address] Storey COPD (Chronic Obstructive Pulmonary Disease) 04/01/2010 Corpus luteum cyst or hematoma Decreased libido 10/19/2013 Diverticulosis of intestine without bleeding 06/24/2018 Ex-smoker 01/18/2016 Quit 2011. Smoked for about 20 yrs up to 1 PPD History of cervical cancer 1998 Hypotestosteronism 10/19/2013 Internal hemorrhoids without mention of complication 04/27/2008 Irritable bowel syndrome 08/18/2008 Lichen sclerosus et atrophicus 2015 biopsy done Neck pain 04/01/2010 Personal history of tuberculosis 12/29/2005 Was treated. Vertigo 04/01/2010 rare Previous Surgical History PAST SURGICAL HISTORY Procedure Laterality Date COLONOSCOPY FLX DX W/COLLJ SPEC WHEN PFRMD 10/27/2015 Colonoscopy, repeat 10 yrs COLONOSCOPY W/BIOPSY SINGLE/MULTIPLE 04/27/08 LITHOTRIPSY XTRCORP SHOCK WAVE 1995 Lithotripsy VAGINAL HYSTERECTOMY UTERUS 250 GM/< 1999 carcinoma in situ. Family History FAMILY HISTORY Problem Relation Age of Onset Cervical Cancer Mother Diabetes Mother Hypertension Father Stroke Father Aortic and brain aneurysm 2014 Heart Father other (nephrolithiasis) Father also in Maternal aunt Breast Cancer Maternal Grandmother Coronary Artery Disease Paternal Uncle Patient Allergies ALLERGIES Allergen Reactions Nitrofurantoin Other: See Comments Chest pain, sob, and body aches Yeast, Dried Unknown Current Medications Current Outpatient Medications on File Prior to Visit Medication Sig estradiol (ESTRACE) 0.01 % (0.1 mg/gram) vaginal cream Use 1 g vaginally two times a week. clobetasol (TEMOVATE) 0.05 % ointment Apply to vulva nightly for 6 weeks then decrease to twice/weekly. May increase to daily or 2x/wk if experiencing a flare potassium citrate ER (UROCIT-K) 10 mEq (1,080 mg) TbER Take 1,080 mg by mouth once daily. Lactobacillus acidophilus (PROBIOTIC ORAL) Take by mouth. Current Facility-Administered Medications on File Prior to Visit Medication perflutren lipid microspheres 1.3 mL in NaCl (PF) 0.9% 10 mL injection (DEFINITY) sodium chloride 0.9 % (flush) 10 mL (BD POSIFLUSH) Social History Social History Tobacco Use Smoking status: Former Smoker Packs/day: 0.50 Years: 15.00 Pack years: 7.50 Types: Cigarettes Quit date: 2015 Years since quittin.2 Smokeless tobacco: Never Used Substance Use Topics Alcohol use: Yes Comment: occasional- 1-2 times per month Drug use: No Review of Symptoms REVIEW OF SYSTEMS GENERAL: No malaise or fevers. Patient has had a 13 lb weight loss in 9 months. Not really trying but has been more active and trying to build more muscle. HEENT: Negative for frequent or significant headaches, No changes in hearing or vision, no nose bleeds or other nasal problems NECK: Negative for lumps, goiter, pain and significant neck swelling RESPIRATORY: Negative for cough, hemoptysis, wheezing, COPD, dyspnea or shortness of breath CARDIOVASCULAR: Negative for chest pain, leg swelling, hypertension, CHF or palpitations GI: No nausea, vomiting, or diarrhea, No heartburn or reflux symptoms and no blood : No history of dysuria, blood MUSCULOSKELETAL: Negative for joint pain or swelling, back pain or muscle pain SKIN: Negative for lesions, rash, and itching PSYCH: Negative for sleep disturbance, mood disorder and recent psychosocial stressors HEMATOLOGY/LYMPHOLOGY: Negative for prolonged bleeding, bruising easily or swollen nodes ENDOCRINE: Negative for cold or heat intolerance, polyuria, polydipsia and goiter NEURO: No history of headaches, syncope, paralysis, seizures or tremors EXAM: BP 110/76 Pulse 72 Resp 12 Ht 156 cm (5' 1.42) Wt 50.3 kg (111 lb) BMI 20.69 kg/m Last 5 Encounter Wt Readings: Date: Wt: 02/03/2022 50.3 kg (111 lb) 03/21/2021 56.2 kg (124 lb) 02/03/2021 56.7 kg (125 lb) 07/06/2020 54.4 kg (120 lb) 06/27/2020 54.9 kg (121 lb) General Appearance: Well appearing, alert, in no acute distress, well-hydrated, well nourished.. Skin: Skin color, texture, turgor normal, no suspicious rashes or lesions. Head: Normocephalic, no masses, lesions, tenderness or abnormalities. Eyes: Anicteric sclera. Pupils are equally round and reactive to light. Extraocular movements are intact. . Ears: External ears normal, canals clear. Neck: Supple, no adenopathy; thyroid symmetric, normal size, no bruits. Lungs: Lungs clear to auscultation. No wheezing, rhonchi, rales.. Heart: RRR without murmur, gallop, or rubs. No ectopy. Abdomen: Normal abdominal exam, Abdomen soft, non-tender. Bowel sounds normal. No masses, organomegaly. Extremities: No deformities, edema, skin discoloration. Musculoskeletal: Spine range of motion normal. Muscular strength intact, No joint swelling, deformity, or tenderness. Peripheral Pulses: Normal. Neurologic: Gait normal. Reflexes normal and symmetric. Sensation to light touch and crainal nerves2-12 intact.. Health Maintenance List COVID-19 VACCINE(2 - Booster for Aixa series) due on 07/08/2021 ANNUAL PCP TEAM CHRONIC DISEASE VISIT due on 02/03/2022 SERUM CREATININE due on 02/03/2022 HEMOGLOBIN/HEMATOCRIT due on 02/03/2022 MAMMOGRAM due on 02/03/2022 SHINGRIX VACCINE(1 of 2) due on 02/03/2022 DEPRESSION SCREENING due on 02/02/2023 DIABETES SCREEN due on 02/04/2024 COLORECTAL CANCER SCREENING due on 10/27/2025 DTAP,TDAP,TD(3 - Td or Tdap) due on 01/17/2026 LIPID SCREEN due on 02/03/2026 INFLUENZA Completed MENINGOCOCCAL CONJUGATE Aged Out SPIROMETRY Discontinued PAP TESTING Discontinued HPV TESTING Discontinued HEPATITIS C SCREENING Discontinued HIV SCREENING Discontinued Data reviewed A/P ASSESSMENT/PLAN: 1. Well adult exam - ICD9: V70.0, ICD10: Z00.00 (primary diagnosis) - Counseled on healthy diet and regular exercise - Calcium intake with supplements or by diet of 1000 mg/day for under 50, 1200- 1500 mg/day for 50+ - Patient was counseled [id number] by myself (the billing provider) for the following immunizations and vaccine components, including side effects: COVID- 19. - Follow up for annual exam in one year Check - LIPID PANEL, NONFASTING - HGB A1C 2. Pulmonary emphysema, unspecified emphysema type (HCC) - ICD9: 492.8, ICD10: J43.9 - Clinically doing well. 3. Stage 3 chronic kidney disease, unspecified whether stage 3a or 3b CKD (HCC) - ICD9: 585.3, ICD10: N18.30 check - COMP METABOLIC PANEL - CBC + DIFF Cont f/u with renal 4. Irritable bowel syndrome with diarrhea - ICD9: 564.1, ICD10: K58.0 - Stable no issues. 5. Lung nodule - ICD9: 793.11, ICD10: R91.1 In Oct [address] to f/u on lung nodule seen on CT 11/08/2021 for surveillance. Was recommendper radiology to do in 6-12 months an patient does have a Hx of smoking. - CT CHEST WO IVCON 6. Ex-smoker - ICD9: V15.82, ICD10: Z87.891 Check - CT CHEST WO IVCON 7. Lung nodules - ICD9: 793.19, ICD10: R91.8 Check - CT CHEST WO IVCON 8. Screening for diabetes mellitus (DM) - ICD9: V77.1, ICD10: Z13.1 Check - HGB A1C 9. Encounter for lipid screening for cardiovascular disease - ICD9: V77.91, V81.2, ICD10: Z13.220, Z13.6 Check - LIPID PANEL, NONFASTING F/u in a year for WAE or sooner if issues. Alejo Fletcher MD documented in this encounterOhio[facility]03-[facility]-2016 History of Past illness Narrative* Problem Noted Date Resolved Date Smoker 01/18/2016 12/21/2016 Overview: Quit 2011. Smoked for about 20 yrs up to 1 PPD, restarted 2015 Encounter for screening for malignant neoplasm o f colon 10/27/2015 10/27/2015 Decreased libido 10/19/2013 05/23/2020 Diarrhea 03/20/2008 08/18/2008 Symptomatic menopausal or female climacteric sta allyson 01/14/2008 09/20/2015 PAIN LEG 11/18/2006 01/14/2008 OTITIS EXTERNA 02/02/2006 01/14/2008 Other nonspecific abnormal finding 12/29/2005 01/14/2008 Tobacco use disorder 12/29/2005 04/01/2010 CHEST PAIN UNSPECIFIED 12/29/2005 8 History of cervical cancer 11/11/199805/23 documented as of this encounter (statuses as of 02/03/2022) [facility] of Past illness Narrative* Problem Noted Date Resolved Date Smoker 01/18/2016 12/21/2016 Overview: Quit 2011. Smoked for about 20 yrs up to 1 PPD, restarted 2015 Encounter for screening for malignant neoplasm o f colon 10/27/2015 10/27/2015 Decreased libido 10/19/2013 05/23/2020 Diarrhea 03/20/2008 08/18/2008 Symptomatic menopausal or female climacteric sta allyson 01/14/2008 09/20/2015 PAIN LEG 11/18/2006 01/14/2008 OTITIS EXTERNA 02/02/2006 01/14/2008 Other nonspecific abnormal finding 12/29/2005 01/14/2008 Tobacco use disorder 12/29/2005 04/01/2010 CHEST PAIN UNSPECIFIED 12/29/2005 8 History of cervical cancer 11/11/199805/23 documented as of this encounter (statuses as of 02/05/2022) [facility] of [facility] illness Narrative* Problem Noted Date Resolved Date Smoker 01/18/2016 12/21/2016 Overview: Quit 2011. Smoked for about 20 yrs up to 1 PPD, restarted 2015 Encounter for screening for malignant neoplasm o f colon 10/27/2015 10/27/2015 Decreased libido 10/19/2013 05/23/2020 Diarrhea 03/20/2008 08/18/2008 Symptomatic menopausal or female climacteric sta allyson 01/14/2008 09/20/2015 PAIN LEG 11/18/2006 01/14/2008 OTITIS EXTERNA 02/02/2006 01/14/2008 Other nonspecific abnormal finding 12/29/2005 01/14/2008 Tobacco use disorder 12/29/2005 04/01/2010 CHEST PAIN UNSPECIFIED 12/29/2005 8 History of cervical cancer 11/11/199805/23 documented as of this encounter (statuses as of 02/06/2022) [facility] of [facility] illness Narrative* Problem Noted Date Resolved Date Smoker 01/18/2016 12/21/2016 Overview: Quit 2011. Smoked for about 20 yrs up to 1 PPD, restarted 2015 Encounter for screening for malignant neoplasm o f colon 10/27/2015 10/27/2015 Decreased libido 10/19/2013 05/23/2020 Diarrhea 03/20/2008 08/18/2008 Symptomatic menopausal or female climacteric sta allyson 01/14/2008 09/20/2015 PAIN LEG 11/18/2006 01/14/2008 OTITIS EXTERNA 02/02/2006 01/14/2008 Other nonspecific abnormal finding 12/29/2005 01/14/2008 Tobacco use disorder 12/29/2005 04/01/2010 CHEST PAIN UNSPECIFIED 12/29/2005200 8 History of cervical cancer 11/11/199805/23 documented as of this encounter (statuses as of 02/07/2022) [facility] Narrative* Problem Noted Date Resolved Date Smoker 01/18/2016 12/21/2016 Overview: Quit 2011. Smoked for about 20 yrs up to 1 PPD, restarted 2015 Encounter for screening for malignant neoplasm o f colon 10/27/2015 10/27/2015 Decreased libido 10/19/2013 05/23/2020 Diarrhea 03/20/2008 08/18/2008 Symptomatic menopausal or female climacteric sta allyson 01/14/2008 09/20/2015 PAIN LEG 11/18/2006 01/14/2008 OTITIS EXTERNA 02/02/2006 01/14/2008 Other nonspecific abnormal finding 12/29/2005 01/14/2008 Tobacco use disorder 12/29/2005 04/01/2010 CHEST PAIN UNSPECIFIED 12/29/2005 8 History of cervical cancer 11/11/199805/23 documented as of this encounter (statuses as of 02/08/2022) [facility] of [facility] Narrative* Problem Noted Date Resolved Date Smoker 01/18/2016 12/21/2016 Overview: Quit 2011. Smoked for about 20 yrs up to 1 PPD, restarted 2015 Encounter for screening for malignant neoplasm o f colon 10/27/2015 10/27/2015 Decreased libido 10/19/2013 05/23/2020 Diarrhea 03/20/2008 08/18/2008 Symptomatic menopausal or female climacteric sta allyson 01/14/2008 09/20/2015 PAIN LEG 11/18/2006 01/14/2008 OTITIS EXTERNA 02/02/2006 01/14/2008 Other nonspecific abnormal finding 12/29/2005 01/14/2008 Tobacco use disorder 12/29/2005 04/01/2010 CHEST PAIN UNSPECIFIED 12/29/2005 8 History of cervical cancer 11/11/199805/23 documented as of this encounter (statuses as of 04/03/2022) [facility] Narrative* Problem Noted Date Resolved Date Smoker 01/18/2016 12/21/2016 Overview: Quit 2011. Smoked for about 20 yrs up to 1 PPD, restarted 2016 Encounter for screening for malignant neoplasm o f colon 10/27/2015 10/27/2015 Decreased libido 10/19/2013 05/23/2020 Diarrhea 03/20/2008 08/18/2008 Symptomatic menopausal or female climacteric sta allyson 01/14/2008 09/20/2015 PAIN LEG 11/18/2006 01/14/2008 OTITIS EXTERNA 02/02/2006 01/14/2008 Other nonspecific abnormal finding 12/29/2005 01/14/2008 Tobacco use disorder 12/29/2005 04/01/2010 CHEST PAIN UNSPECIFIED 12/29/2005 8 History of cervical cancer 11/11/199805/23 documented as of this encounter (statuses as of 08/10/2022) [facility] Narrative* Problem Noted Date Resolved Date Smoker 01/18/2016 12/21/2016 Overview: Quit 2011. Smoked for about 20 yrs up to 1 PPD, restarted 2015 Encounter for screening for malignant neoplasm o f colon 10/27/2015 10/27/2015 Decreased libido 10/19/2013 05/23/2020 Diarrhea 03/20/2008 08/18/2008 Symptomatic menopausal or female climacteric sta allyson 01/14/2008 09/20/2015 PAIN LEG 11/18/2006 01/14/2008 OTITIS EXTERNA 02/02/2006 01/14/2008 Other nonspecific abnormal finding 12/29/2005 01/14/2008 Tobacco use disorder 12/29/2005 04/01/2010 CHEST PAIN UNSPECIFIED 12/29/2005 8 History of cervical cancer 11/11/199805/23 documented as of this encounter (statuses as of 08/14/2022) [facility] Narrative* Problem Noted Date Resolved Date Smoker 01/18/2016 12/21/2016 Overview: Quit 2011. Smoked for about 20 yrs up to 1 PPD, restarted 2015 Encounter for screening for malignant neoplasm o f colon 10/27/2015 10/27/2015 Decreased libido 10/19/2013 05/23/2020 Diarrhea 03/20/2008 08/18/2008 Symptomatic menopausal or female climacteric sta allyson 01/14/2008 09/20/2015 PAIN LEG 11/18/2006 01/14/2008 OTITIS EXTERNA 02/02/2006 01/14/2008 Other nonspecific abnormal finding 12/29/2005 01/14/2008 Tobacco use disorder 12/29/2005 04/01/2010 CHEST PAIN UNSPECIFIED 12/29/2005 8 History of cervical cancer 11/11/199805/23 documented as of this encounter (statuses as of 02/06/2023) [facility] Narrative* Problem Noted Date Resolved Date Smoker 01/18/2016 12/21/2016 Overview: Quit 2011. Smoked for about 20 yrs up to 1 PPD, restarted 2015 Encounter for screening for malignant neoplasm o f colon 10/27/2015 10/27/2015 Decreased libido 10/19/2013 05/23/2020 Diarrhea 03/20/2008 08/18/2008 Symptomatic menopausal or female climacteric sta allyson 01/14/2008 09/20/2015 PAIN LEG 11/18/2006 01/14/2008 OTITIS EXTERNA 02/02/2006 01/14/2008 Other nonspecific abnormal finding 12/29/2005 01/14/2008 Tobacco use disorder 12/29/2005 04/01/2010 CHEST PAIN UNSPECIFIED 12/29/2005 8 History of cervical cancer 11/11/199805/23 documented as of this encounter (statuses as of 02/07/2023) [facility] Narrative* Problem Noted Date Resolved Date Smoker 01/18/2016 12/21/2016 Overview: Quit 2011. Smoked for about 20 yrs up to 1 PPD, restarted 2015 Encounter for screening for malignant neoplasm o f colon 10/27/2015 10/27/2015 Decreased libido 10/19/2013 05/23/2020 Diarrhea 03/20/2008 08/18/2008 Symptomatic menopausal or female climacteric sta allyson 01/14/2008 09/20/2015 PAIN LEG 11/18/2006 01/14/2008 OTITIS EXTERNA 02/02/2006 01/14/2008 Other nonspecific abnormal finding 12/29/2005 01/14/2008 Tobacco use disorder 12/29/2005 04/01/2010 CHEST PAIN UNSPECIFIED 12/29/2005200 8 History of cervical cancer 11/11/199805/23 documented as of this encounter (statuses as of 02/09/2023) [facility] Narrative* Problem Noted Date Resolved Date Smoker 01/18/2016 12/21/2016 Overview: Quit 2011. Smoked for about 20 yrs up to 1 PPD, restarted 2016 Encounter for screening for malignant neoplasm o f colon 10/27/2015 10/27/2015 Decreased libido 10/19/2013 05/23/2020 Diarrhea 03/20/2008 08/18/2008 Symptomatic menopausal or female climacteric sta allyson 01/14/2008 09/20/2015 PAIN LEG 11/18/2006 01/14/2008 OTITIS EXTERNA 02/02/2006 01/14/2008 Other nonspecific abnormal finding 12/29/2005 01/14/2008 Tobacco use disorder 12/29/2005 04/01/2010 CHEST PAIN UNSPECIFIED 12/29/2005 8 History of cervical cancer 11/11/199805/23 documented as of this encounter (statuses as of 02/15/2023) [facility] illness Narrative* Problem Noted Date Resolved Date Smoker 01/18/2016 12/21/2016 Overview: Quit 2011. Smoked for about 20 yrs up to 1 PPD, restarted 2016 Encounter for screening for malignant neoplasm o f colon 10/27/2015 10/27/2015 Decreased libido 10/19/2013 05/23/2020 Diarrhea 03/20/2008 08/18/2008 Symptomatic menopausal or female climacteric sta allyson 01/14/2008 09/20/2015 PAIN LEG 11/18/2006 01/14/2008 OTITIS EXTERNA 02/02/2006 01/14/2008 Other nonspecific abnormal finding 12/29/2005 01/14/2008 Tobacco use disorder 12/29/2005 04/01/2010 CHEST PAIN UNSPECIFIED 12/29/200505200 8 History of cervical cancer 11/11/199805/23 documented as of this encounter (statuses as of 02/28/2023) [facility]03-[facility]2016 History of Past illness Narrative* Problem Noted Date Resolved Date Smoker 01/18/2016 12/21/2016 Overview: Quit 2011. Smoked for about 20 yrs up to 1 PPD, restarted 2016 Encounter for screening for malignant neoplasm o f colon 10/27/2015 10/27/2015 Decreased libido 10/19/2013 05/23/2020 Diarrhea 03/20/2008 08/18/2008 Symptomatic menopausal or female climacteric sta allyson 01/14/2008 09/20/2015 PAIN LEG 11/18/2006 01/14/2008 OTITIS EXTERNA 02/02/2006 01/14/2008 Other nonspecific abnormal finding 12/29/2005 01/14/2008 Tobacco use disorder 12/29/2005 04/01/2010 CHEST PAIN UNSPECIFIED 12/29/2005 8 History of cervical cancer 11/11/199805/23 documented as of this encounter (statuses as of 04/18/2023) [facility] History of Past illness Narrative* Problem Noted Date Diagnosed Date Resolved Date Smoker 01/18/2016 12/21/2016 Overview: Quit 2011. Smoked for about 20 yrs up to 1 PPD, restarted 2015 Encounter for screening for malignant neoplasm of colon 10/27/2015 10/27/2015 Decreased libido 10/19/2013 05/23/2020 Diarrhea 03/20/2008 08/18/2008 Symptomatic menopausal or fe male climacteric states 01/14/2008 09/20/2015 PAIN LEG 11/18/2006 01/14/2008 OTITIS EXTERNA 02/02/2006 01/14/2008 Other nonspecific abnormal finding 12/29/2005 01/14/2008 Tobacco use disorder 12/29/2005 010 CHEST PAIN UNSPECIFIED 12/29/200501/13 History of cervical cancer 11/11/1998 0 05/23/2020 documented as of this encounter (statuses as of 07/28/2023) [facility] History of Past illness Narrative* Problem Noted Date Diagnosed Date Resolved Date Smoker 01/18/2016 12/21/2016 Overview: Quit 2011. Smoked for about 20 yrs up to 1 PPD, restarted 2015 Encounter for screening for malignant neoplasm of colon 10/27/2015 10/27/2015 Decreased libido 10/19/2013 05/23/2020 Diarrhea 03/20/2008 08/18/2008 Symptomatic menopausal or fe male climacteric states 01/14/2008 09/20/2015 PAIN LEG 11/18/2006 01/14/2008 OTITIS EXTERNA 02/02/2006 01/14/2008 Other nonspecific abnormal finding 12/29/2005 01/14/2008 Tobacco use disorder 12/29/2005 010 CHEST PAIN UNSPECIFIED 12/29/200501/13 History of cervical cancer 11/11/1998 0 05/23/2020 documented as of this encounter (statuses as of 08/09/2023) [facility] History of Past illness Narrative* Problem Noted Date Diagnosed Date Resolved Date Smoker 01/18/2016 12/21/2016 Overview: Quit 2011. Smoked for about 20 yrs up to 1 PPD, restarted 2015 Encounter for screening for malignant neoplasm of colon 10/27/2015 10/27/2015 Decreased libido 10/19/2013 05/23/2020 Diarrhea 03/20/2008 08/18/2008 Symptomatic menopausal or fe male climacteric states 01/14/2008 09/20/2015 PAIN LEG 11/18/2006 01/14/2008 OTITIS EXTERNA 02/02/2006 01/14/2008 Other nonspecific abnormal finding 12/29/2005 01/14/2008 Tobacco use disorder 12/29/2005 010 CHEST PAIN UNSPECIFIED 12/29/200501/13 History of cervical cancer 11/11/1998 0 05/23/2020 documented as of this encounter (statuses as of 09/15/2023) [facility] History of Past illness Narrative* Problem Noted Date Diagnosed Date Resolved Date Smoker 01/18/2016 12/21/2016 Overview: Quit 2011. Smoked for about 20 yrs up to 1 PPD, restarted 2015 Encounter for screening for malignant neoplasm of colon 10/27/2015 10/27/2015 Decreased libido 10/19/2013 05/23/2020 Diarrhea 03/20/2008 08/18/2008 Symptomatic menopausal or fe male climacteric states 01/14/2008 09/20/2015 PAIN LEG 11/18/2006 01/14/2008 OTITIS EXTERNA 02/02/2006 01/14/2008 Other nonspecific abnormal finding 12/29/2005 01/14/2008 Tobacco use disorder 12/29/2005 010 CHEST PAIN UNSPECIFIED 12/29/200501/13 History of cervical cancer 11/11/1998 0 05/23/2020 documented as of this encounter (statuses as of 01/16/2024) [facility] History of Past illness Narrative* Problem Noted Date Diagnosed Date Resolved Date Smoker 01/18/2016 12/21/2016 Overview: Quit 2011. Smoked for about 20 yrs up to 1 PPD, restarted 2015 Encounter for screening for malignant neoplasm of colon 10/27/2015 10/27/2015 Decreased libido 10/19/2013 05/23/2020 Diarrhea 03/20/2008 08/18/2008 Symptomatic menopausal or fe male climacteric states 01/14/2008 09/20/2015 PAIN LEG 11/18/2006 01/14/2008 OTITIS EXTERNA 02/02/2006 01/14/2008 Other nonspecific abnormal finding 12/29/2005 01/14/2008 Tobacco use disorder 12/29/2005 010 CHEST PAIN UNSPECIFIED 12/29/200501/13 History of cervical cancer 11/11/1998 0 05/23/2020 documented as of this encounter (statuses as of 01/16/2024) [facility] History of Past illness Narrative* Problem Noted Date Diagnosed Date Resolved Date Smoker 01/18/2016 12/21/2016 Overview: Quit 2011. Smoked for about 20 yrs up to 1 PPD, restarted 2015 Encounter for screening for malignant neoplasm of colon 10/27/2015 10/27/2015 Decreased libido 10/19/2013 05/23/2020 Diarrhea 03/20/2008 08/18/2008 Symptomatic menopausal or fe male climacteric states 01/14/2008 09/20/2015 PAIN LEG 11/18/2006 01/14/2008 OTITIS EXTERNA 02/02/2006 01/14/2008 Other nonspecific abnormal finding 12/29/2005 01/14/2008 Tobacco use disorder 12/29/2005 010 CHEST PAIN UNSPECIFIED 12/29/200501/13 History of cervical cancer 11/11/1998 0 05/23/2020 documented as of this encounter (statuses as of 01/27/2024) [facility] History of Past illness Narrative* Problem Noted Date Diagnosed Date Resolved Date Smoker 01/18/2016 12/21/2016 Overview: Quit 2011. Smoked for about 20 yrs up to 1 PPD, restarted 2015 Encounter for screening for malignant neoplasm of colon 10/27/2015 10/27/2015 Decreased libido 10/19/2013 05/23/2020 Diarrhea 03/20/2008 08/18/2008 Symptomatic menopausal or fe male climacteric states 01/14/2008 09/20/2015 PAIN LEG 11/18/2006 01/14/2008 OTITIS EXTERNA 02/02/2006 01/14/2008 Other nonspecific abnormal finding 12/29/2005 01/14/2008 Tobacco use disorder 12/29/2005 010 CHEST PAIN UNSPECIFIED 12/29/200501/13 History of cervical cancer 11/11/1998 0 05/23/2020 documented as of this encounter (statuses as of 01/28/2024) [facility] History of Past illness Narrative* Problem Noted Date Diagnosed Date Resolved Date Smoker 01/18/2016 12/21/2016 Overview: Quit 2011. Smoked for about 20 yrs up to 1 PPD, restarted 2015 Encounter for screening for malignant neoplasm of colon 10/27/2015 10/27/2015 Decreased libido 10/19/2013 05/23/2020 Diarrhea 03/20/2008 08/18/2008 Symptomatic menopausal or fe male climacteric states 01/14/2008 09/20/2015 PAIN LEG 11/18/2006 01/14/2008 OTITIS EXTERNA 02/02/2006 01/14/2008 Other nonspecific abnormal finding 12/29/2005 01/14/2008 Tobacco use disorder 12/29/2005 010 CHEST PAIN UNSPECIFIED 12/29/200501/13 History of cervical cancer 11/11/1998 0 05/23/2020 documented as of this encounter (statuses as of 01/29/2024) [facility] Well adult exam- Primary Routine general medical examination at a health care facility Pulmonary emphysema, unspecified emphysema type (HCC) Stage 3 chronic kidney disease, unspecified whether stage 3a or 3b CKD (HCC) Irritable bowel syndrome with diarrhea Irritable bowel syndrome Lung nodule Solitary pulmonary nodule Ex-smoker Personal history of tobacco use, presenting hazards to health Lung nodules Other nonspecific abnormal finding of lung field Screening for diabetes mellitus (DM) Screening for diabetes mellitus Encounter for lipid screening for cardiovascular disease Screening for lipoid disorders [facility] Diagnosis Encounter for gynecological examination (general) (routine) without abnormal findings Encounter for screening mammogram for breast cancer [facility] Diagnosis Elevated hemoglobin A1c Other abnormal blood chemistry [facility]* Diagnosis Encounter for gynecological examination (general) (routine) without abnormal findings Encounter for screening mammogram for breast cancer [facility] noteNo assessment information availableWAkron [facility] Work Phone: Evaluation note* Diagnosis Encounter for gynecological examination with abnormal finding- Primary Routine gynecological examination Encounter for screening mammogram for breast cancer Lichen sclerosus et atrophicus Circumscribed scleroderma [facility] Diagnosis Onset Date Resolution Status Kidney stones [facility] Work Phone: evaluation note* Diagnosis Calculus of kidney [facility]* Diagnosis Encounter for screening mammogram for malignant neoplasm of breast Other screening mammogram [facility]* Diagnosis Well adult exam- Primary Routine general medical examination at a health care facility Elevated hemoglobin A1c Other abnormal blood chemistry Stage 3a chronic kidney disease (HCC) Pulmonary emphysema, unspecified emphysema type (HCC) Irritable bowel syndrome with diarrhea Irritable bowel syndrome Encounter for lipid screening for cardiovascular disease Screening for lipoid disorders Neoplasm of uncertain behavior of skin of chest Neoplasm of uncertain behavior of skin [facility]* Diagnosis Ex-smoker- Primary Personal history of tobacco use, presenting hazards to health Lung nodule Solitary pulmonary nodule Lung nodules Other nonspecific abnormal finding of lung field [facility]* Diagnosis AK (actinic keratosis) Actinic keratosis [facility]* Diagnosis Ex-smoker Personal history of tobacco use, presenting hazards to health Lung nodule Solitary pulmonary nodule Lung nodules Other nonspecific abnormal finding of lung field [facility]* Diagnosis Lung nodules Other nonspecific abnormal finding of lung field [facility]* Diagnosis Encounter for screening mammogram for breast cancer [facility] Diagnosis Epigastric pain- Primary Abdominal pain, epigastric Diarrhea, unspecified type [facility]* Diagnosis Encounter for screening mammogram for breast cancer documented in this encounter [facility] note* Diagnosis Diarrhea, unspecified type- Primary documented in this encounter [facility] note* Diagnosis Screen for colon cancer- Primary Special screening for malignant neoplasms, colon Diarrhea, unspecified type documented in this encounter [facility] note* Diagnosis Encounter for screening for malignant neoplasm of colon- Primary Special screening for malignant neoplasms, colon Diarrhea, unspecified type Screen for colon cancer Special screening for malignant neoplasms, colon [facility]* Diagnosis Collagenous colitis- Primary Other and unspecified noninfectious gastroenteritis and colitis documented in this encounter [facility] note* Diagnosis Encounter for gynecological examination (general) (routine) without abnormal findings- Primary Encounter for screening mammogram for breast cancer documented in this encounter [facility] note* Diagnosis Diarrhea, unspecified type- Primary documented in this encounter [facility] Discharge instructions Additional Instructions Implant Used?: [facility] Work Phone: Reason for referral (narrative)* Diagnostic Procedure Only (Routine) - Authorized Specialty Diagnoses / Procedures Referred By Contleighton mcclelland Referred To Contact [facility] Diagnoses Encounter for gynecological examination (general) (routine) without abnormal findings Encounter for screening mammogram for breast cancer Procedures MEAGHAN SCREENING SCREENING MAMMOGRAPHY BI 2-VIEW BREAST INC CAD Tanya Brar MD [address] [place] [address] [facility] [address] [place] [phone] Referral ID Status Reason Start Date Expiration Date Visits Requested Visits Authorized [id number] Authorized Auto-Generat ed Referral 02/05/2022 11/10/2022 1 1 [facility] for referral (narrative)* Diagnostic Procedure Only (Routine) - Closed Specialty Diagnoses / Procedures Referred By Contleighton t Referred To Contact [facility] Diagnoses Encounter for gynecological examination (general) (routine) without abnormal findings Encounter for screening mammogram for breast cancer Procedures MEAGHAN SCREENING SCREENING MAMMOGRAPHY BI 2-VIEW BREAST INC CAD Tanya Brar MD [address] [place] [address] [facility] [address] [place] [address] Referral ID Status Reason Start Date Expiration Date V isits Requested Visits Authorized [id number] Closed Auto-Generate d Referral 02/05/2022 11/10/2022 1 1 T [facility] for referral (narrative)* Diagnostic Procedure Only (Routine) - Pending Review Specialty Diagnoses / Procedures Referred By Contac t Referred To Contact [facility] Diagnoses Encounter for gynecological examination (general) (routine) without abnormal findings Encounter for screening mammogram for breast cancer Procedures [facility] SCREENING SCREENING MAMMOGRAPHY BI 2-VIEW BREAST INC CAD Tanya Brar MD [address] [place] [address] [facility] [address] [place] [address] Referral ID Status Reason Start Date Expiration Date Visits Requested Visits Authorized [id number] Pending Review Auto-Generat ed Referral 02/06/2023 03/07/2024 1 1 [facility] for referral (narrative)* Diagnostic Procedure Only (Routine) - Closed Specialty Diagnoses / Procedures Referred By Contac t Referred To Contact [facility] Diagnoses Encounter for screening mammogram for malignant neoplasm of breast Procedures [facility] SCREENING SCREENING MAMMOGRAPHY BI 2-VIEW BREAST INC CAD Jia Alvarado APRN.CNP [address] [place] [address] [facility] [address] [place] [address] Referral ID Status Reason Start Date Expiration Date V isits Requested Visits Authorized [id number] Closed Auto-Generate d Referral 12/10/2022 01/09/2024 1 1 [facility] for referral (narrative)* Diagnostic Procedure Only (Routine) - Pending Review Specialty Diagnoses / Procedures [facility] To [facility] Diagnoses Encounter for screening mammogram for breast cancer Procedures MEAGHAN SCREENING SCREENING MAMMOGRAPHY BI 2-VIEW BREAST INC CAD Alejo Fletcher MD [address] [place] [address] [facility] [address] [place] [address] Referral ID Status Reason Start Date Expiration Date Visits Requested Visits Authorized [id number] Pending Review Auto-Generat ed Referral 03/11/2024 04/10/2025 1 1 [facility] for referral (narrative)* Outpatient Procedure (Routine) - Authorized Specialty Diagnoses / Procedures Referred By [facility] Referred To Contact [facility] Diagnoses Diarrhea, unspecified type Screen for colon cancer Procedures COLONOSCOPY DIAGNOSTIC COLONOSCOPY FLX DX W/COLLJ SPEC WHEN Tana De Jesus APRN.CUSTOMER DATA TECHNICIAN [address] [place] [address] [facility] [address] [place] [address] Referral ID Status Reason Start Date Expiration Date Visits Requested Visits Authorized [id number] Authorized Auto-Generat ed Referral 07/24/2024 07/24/2025 1 1 [facility] for referral (narrative)* Outpatient Procedure (Routine) - Closed Specialty Diagnoses / Procedures Referred By [facility] Referred To Contact [facility] Diagnoses Diarrhea, unspecified type Screen for colon cancer Procedures COLONOSCOPY DIAGNOSTIC COLONOSCOPY FLX DX W/COLLJ SPEC WHEN Tana De Jesus APRN.CUSTOMER DATA TECHNICIAN [address] [place] [address] [facility] [address] [place] [address] Referral ID Status Reason Start Date Expiration Date V isits Requested Visits Authorized [id number] Closed Auto-Generate d Referral 07/24/2024 07/24/2025 1 1 [facility] for referral (narrative)* Diagnostic Procedure Only (Routine) - Pending Review Specialty Diagnoses / Procedures Referred By Dg mcclelland Referred To Contact [facility] Diagnoses Encounter for gynecological examination (general) (routine) without abnormal findings Encounter for screening mammogram for breast cancer Procedures MEAGHAN SCREENING W ATTILA SCREENING DIGITAL BREAST TOMOSYNTHESIS BI SCREENING MAMMOGRAPHY BI 2-VIEW BREAST INC CAD Tanya Brar MD [address] [place] [id number] [facility] [address] [place] [address] Referral ID Status Reason Start Date Expiration Date Visits Requested Visits Authorized [id number] Pending Review Auto-Generat ed Referral 11/25/2024 12/25/2025 1 1 [facility] for referral (narrative)No reason for referral information availableWAkron Children's [facility] Work Phone: Reason for visit Narrative* Diagnostic Procedure Only (Routine) - Closed Specialty Diagnoses / Procedures Referred By Dg mcclelland Referred To Contact [facility] Diagnoses Encounter for gynecological examination (general) (routine) without abnormal findings Encounter for screening mammogram for breast cancer Procedures MEAGHAN SCREENING SCREENING MAMMOGRAPHY BI 2-VIEW BREAST INC CAD Tanya Brar MD [address] [place] [address] [facility] [address] [place] [address] Referral ID Status Reason Start Date Expiration Date V isits Requested Visits Authorized [id number] Closed Auto-Generate d Referral 02/05/2022 11/10/2022 1 1 [facility] for visit Narrative* Diagnostic Procedure Only (Routine) - Closed Specialty Diagnoses / Procedures Referred By Dg mcclelland Referred To Contact [facility] Diagnoses Encounter for screening mammogram for malignant neoplasm of breast Procedures MEAGHAN SCREENING SCREENING MAMMOGRAPHY BI 2-VIEW BREAST INC CAD Jia Alvarado APRN.EMILY [address] [place] [address] [facility] [address] [place] [address] Referral ID Status Reason Start Date Expiration Date V isits Requested Visits Authorized [id number] Closed Auto-Generate d Referral 12/10/2022 01/09/2024 1 1 [facility] for visit Narrative* Diagnostic Procedure Only (Routine) - Closed Specialty Diagnoses / Procedures Referred By Contac t Referred To Contact [facility] Diagnoses Encounter for screening mammogram for breast cancer Procedures MEAGHAN SCREENING SCREENING MAMMOGRAPHY BI 2-VIEW BREAST INC CAD Alejo Fletcher MD [address] [place] [address] [facility] [address] [place] [address] Referral ID Status Reason Start Date Expiration Date V isits Requested Visits Authorized [id number] Closed Auto-Generate d Referral 03/11/2024 04/10/2025 1 1 [facility] for visit Narrative* Outpatient Procedure (Routine) - Closed Specialty Diagnoses / Procedures Referred By Contleighton t Referred To Contact [facility] Diagnoses Diarrhea, unspecified type Screen for colon cancer Procedures COLONOSCOPY DIAGNOSTIC COLONOSCOPY FLX DX W/COLLJ SPEC WHEN PFRMD Tana Peterson, DOLORES.CUSTOMER DATA TECHNICIAN [address] [place] [address] [facility] [address] [place] [address] Referral ID Status Reason Start Date Expiration Date V isits Requested Visits Authorized [id number] Closed Auto-Generate d Referral 07/24/2024 07/24/2025 1 1 [facility] Summary Purpose Family History No Family History Records Found Relationship Condition Age at Onset Recorded Date/T deepthi mother Malignant neoplasm Unknown father Hypertension Unknown Kidney disorder Unknown brother Prediabetes Unknown Advance Directives No Advanced Directives Records Found Advance Directive Response Recorded Date/ Time Advance Directives Yes October 5:16pm Living Will Yes November 08, 021 6:13am Power of Basket Filler Yes November 08, 2021 6:13am Advance Directive Response Recorded Date/ Time Advance Directives Yes October 5:16pm Living Will No December 25, 023 5:17am Power of Basket Filler No December 25, 2022 5:17am Advance Directive Response Recorded Date/ Time Advance Directives Yes October 5:16pm Living Will No February 01, 2023 3:06pm Power of Basket Filler No February 01 3:06pm Advance Directive Response Recorded Date/ Time Advance Directives Yes October 5:16pm Living Will No March 21, 2023 1 :07pm Power of Basket Filler No March 21, 2023 1:07pm Advance Directive Response Recorded Date/ Time Advance Directives Yes October 4:16pm Living Will No March 21, 2023 1 2:07pm Power of Basket Filler No March 21, 2023 12:07pm Advance Directive Response Recorded Date/ Time Living Will No November 07 10:44am Power of Basket Filler No November 07, 2024 10:44am Advance Directives Yes October 4:16pm Advance Directive Response Recorded Date/ Time Living Will No November 07 11:44am Power of Basket Filler No November 07, 2024 11:44am Advance Directives Yes October 5:16pm Advance Directive Response Recorded Date/ Time Living Will No November 07 11:44am Do you have a Healthcare Power of Basket Filler? No November 07, 2024 11:44am Advance Directives Yes October 5:16pm Advance Directive Response Recorded Date/ Time Advance Directives Yes October 5:16pm Reason for Referral Specialty Diagnoses / Procedures Referred By Contac t Referred To Contact CT IMAGING Diagnoses Lung nodule Ex-smoker Lung nodules Procedures CT CHEST WO IVCON DIAGNOSTIC COMPUTED TOMOGRAPHY THORAX W/O Alejo Campbell MD [address] [place] [address] Ct [facility] Referral ID Status Reason Start Date Expiration Date Visits Requested Visits Authorized [id number] Pending Review Auto-Generat ed Referral 2 03/05/2023 1 1 Specialty Diagnoses / Procedures Referred By Dg t Referred To Contact CT IMAGING Diagnoses Ex-smoker Lung nodule Lung nodules Procedures CT CHEST WO IVCON DIAGNOSTIC COMPUTED TOMOGRAPHY THORAX W/O Alejo Campbell MD [address] [place] [address] [place] [address] Referral ID Status Reason Start Date Expiration Date Visits Requested Visits Authorized [id number] Additional Clinical Info Needed Auto-Generat ed Referral 01/16/2024 02/14/2025 1 1 Specialty Diagnoses / Procedures Referred By Contac t Referred To Contact General Surgery Diagnoses Diarrhea, unspecified type Procedures CONSULT TO GENERAL SURGERY OFFICE/OUTPATIENT [facility] 60 MINUTES Alejo Fletcher MD [address] [place] [address] Referral ID Status Reason Start Date Expiration Date Visits Requested Visits Authorized [id number] Authorized PCP Requested Referral 07/14/2024 07/13/2025 1 1 Chief Complaint and Reason for Visit Chief Complaint 24 HR URINE 24 HR URINE Chief Complaint FLANK PAIN KUB- STONES Chief Complaint FLANK PAIN KUB- STONES RT ESWL Reason for Visit Kidney stones Chief Complaint FLANK PAIN KUB- STONES RT ESWL KUB- KIDNEY CALC. CYSTO, URETEROSCOPY, LASER LIHO, BASKET KIDNEY STONE AND PAIN POST OP Reason for Visit Kidney stones Chief Complaint KIDNEY STONE AND LEATHA N POST OP Chief Complaint 24 HR URINE ACID JUG 24 HR URINE PLAIN JUG KUB Chief Complaint Admit Date FLANK PAIN November 07, 2024 10:32am LT URETERAL STONE January 01, 2025 1:48pm Calculus of kidney January 09, 2025 9:25 am 24 HR URINE January 12, 2025 6:48 am Chief Complaint Admit Date FLANK PAIN November 07, 2024 10:32am LT URETERAL STONE January 01, 2025 1:48pm [facility] January 09, 2025 9:25 am 24 HR URINE January 12, 2025 6:48 am HX OF TOBACCO USE February 12, 2025 9:16 am Chief Complaint Admit Date LT URETERAL STONE January 01, 2025 1:48pm [facility] January 09, 2025 9:25 am 24 HR URINE January 12, 2025 6:48 am HX OF TOBACCO USE February 12, 2025 9:16 am CORONARY CALCIFICATIONS (DEONDRE) February 11:13am INT LABS March 25, 2025 6:08a m Reason for Visit Admit Date Chronic kidney disease March 09, 2025 11:13am Coronary artery disease March 09, 2025 11:13am Hypertension March 09, 2025 11: 13am Chief Complaint Admit Date LT URETERAL STONE January 01, 2025 1:48pm [facility] January 09, 2025 9:25 am 24 HR URINE January 12, 2025 6:48 am HX OF TOBACCO USE February 12, 2025 9:16 am CORONARY CALCIFICATIONS (DEONDRE) February 11:13am INT LABS March 25, 2025 6:08a m CHEST PAIN April 01, 2025 6:20a m Additional Source Comments INFORMATION SOURCE (unrecogn ized section and content) DATE CREATED AUTHOR 06/23/2020 [facility] [place] DATE CREATED AUTHOR AUTHOR'S ORGANIZ ATION 02/20/2021 [facility] DATE CREATED AUTHOR AUTHOR'S ORGANIZ ATION 01/26/[address] [facility] DATE CREATED AUTHOR AUTHOR'S ORGANIZ ATION 06/15/2025 [facility] Source Comments (unrecognize d section and content) In the event this informatio n is protected by the Federal Confidentiality of Alcohol and Drug Abuse Patient Records regulations: The Federal rules restrict any use of the information to criminally investigate or prosecute any alcohol or drug abuse patient.[facility] HospitalIn the event this information is protected by the Federal Confidentiality of Alcohol and Drug Abuse Patient Records regulations: The Federal rules restrict any use of the information to criminally investigate or prosecute any alcohol or drug abuse patient.[facility] HospitalIn the event this information is protected by the Federal Confidentiality of Alcohol and Drug Abuse Patient Records regulations: The Federal rules restrict any use of the information to criminally investigate or prosecute any alcohol or drug abuse patient.[facility] HospitalIn the event this information is protected by the Federal Confidentiality of Alcohol and Drug Abuse Patient Records regulations: The Federal rules restrict any use of the information to criminally investigate or prosecute any alcohol or drug abuse patient.[facility] HospitalIn the event this information is protected by the Federal Confidentiality of Alcohol and Drug Abuse Patient Records regulations: The Federal rules restrict any use of the information to criminally investigate or prosecute any alcohol or drug abuse patient.[facility] HospitalIn the event this information is protected by the Federal Confidentiality of Alcohol and Drug Abuse Patient Records regulations: The Federal rules restrict any use of the information to criminally investigate or prosecute any alcohol or drug abuse patient.[facility] HospitalIn the event this information is protected by the Federal Confidentiality of Alcohol and Drug Abuse Patient Records regulations: The Federal rules restrict any use of the information to criminally investigate or prosecute any alcohol or drug abuse patient.[facility] HospitalIn the event this information is protected by the Federal Confidentiality of Alcohol and Drug Abuse Patient Records regulations: The Federal rules restrict any use of the information to criminally investigate or prosecute any alcohol or drug abuse patient.[facility] HospitalIn the event this information is protected by the Federal Confidentiality of Alcohol and Drug Abuse Patient Records regulations: The Federal rules restrict any use of the information to criminally investigate or prosecute any alcohol or drug abuse patient.[facility] HospitalIn the event this information is protected by the Federal Confidentiality of Alcohol and Drug Abuse Patient Records regulations: The Federal rules restrict any use of the information to criminally investigate or prosecute any alcohol or drug abuse patient.[facility] HospitalIn the event this information is protected by the Federal Confidentiality of Alcohol and Drug Abuse Patient Records regulations: The Federal rules restrict any use of the information to criminally investigate or prosecute any alcohol or drug abuse patient.[facility] HospitalIn the event this information is protected by the Federal Confidentiality of Alcohol and Drug Abuse Patient Records regulations: The Federal rules restrict any use of the information to criminally investigate or prosecute any alcohol or drug abuse patient.[facility] HospitalIn the event this information is protected by the Federal Confidentiality of Alcohol and Drug Abuse Patient Records regulations: The Federal rules restrict any use of the information to criminally investigate or prosecute any alcohol or drug abuse patient.[facility] HospitalIn the event this information is protected by the Federal Confidentiality of Alcohol and Drug Abuse Patient Records regulations: The Federal rules restrict any use of the information to criminally investigate or prosecute any alcohol or drug abuse patient.[facility] HospitalIn the event this information is protected by the Federal Confidentiality of Alcohol and Drug Abuse Patient Records regulations: The Federal rules restrict any use of the information to criminally investigate or prosecute any alcohol or drug abuse patient.[facility] HospitalIn the event this information is protected by the Federal Confidentiality of Alcohol and Drug Abuse Patient Records regulations: The Federal rules restrict any use of the information to criminally investigate or prosecute any alcohol or drug abuse patient.[facility] HospitalIn the event this information is protected by the Federal Confidentiality of Alcohol and Drug Abuse Patient Records regulations: The Federal rules restrict any use of the information to criminally investigate or prosecute any alcohol or drug abuse patient.[facility] HospitalIn the event this information is protected by the Federal Confidentiality of Alcohol and Drug Abuse Patient Records regulations: The Federal rules restrict any use of the information to criminally investigate or prosecute any alcohol or drug abuse patient.[facility] HospitalIn the event this information is protected by the Federal Confidentiality of Alcohol and Drug Abuse Patient Records regulations: The Federal rules restrict any use of the information to criminally investigate or prosecute any alcohol or drug abuse patient.[facility] HospitalIn the event this information is protected by the Federal Confidentiality of Alcohol and Drug Abuse Patient Records regulations: The Federal rules restrict any use of the information to criminally investigate or prosecute any alcohol or drug abuse patient.[facility] HospitalIn the event this information is protected by the Federal Confidentiality of Alcohol and Drug Abuse Patient Records regulations: The Federal rules restrict any use of the information to criminally investigate or prosecute any alcohol or drug abuse patient.[facility] HospitalIn the event this information is protected by the Federal Confidentiality of Alcohol and Drug Abuse Patient Records regulations: The Federal rules restrict any use of the information to criminally investigate or prosecute any alcohol or drug abuse patient.[facility] HospitalIn the event this information is protected by the Federal Confidentiality of Alcohol and Drug Abuse Patient Records regulations: The Federal rules restrict any use of the information to criminally investigate or prosecute any alcohol or drug abuse patient.[facility] HospitalIn the event this information is protected by the Federal Confidentiality of Alcohol and Drug Abuse Patient Records regulations: The Federal rules restrict any use of the information to criminally investigate or prosecute any alcohol or drug abuse patient.[facility] HospitalIn the event this information is protected by the Federal Confidentiality of Alcohol and Drug Abuse Patient Records regulations: The Federal rules restrict any use of the information to criminally investigate or prosecute any alcohol or drug abuse patient.[facility] HospitalIn the event this information is protected by the Federal Confidentiality of Alcohol and Drug Abuse Patient Records regulations: The Federal rules restrict any use of the information to criminally investigate or prosecute any alcohol or drug abuse patient.[facility] HospitalIn the event this information is protected by the Federal Confidentiality of Alcohol and Drug Abuse Patient Records regulations: The Federal rules restrict any use of the information to criminally investigate or prosecute any alcohol or drug abuse patient.[facility] HospitalIn the event this information is protected by the Federal Confidentiality of Alcohol and Drug Abuse Patient Records regulations: The Federal rules restrict any use of the information to criminally investigate or prosecute any alcohol or drug abuse patient.[facility] HospitalIn the event this information is protected by the Federal Confidentiality of Alcohol and Drug Abuse Patient Records regulations: The Federal rules restrict any use of the information to criminally investigate or prosecute any alcohol or drug abuse patient.[facility] HospitalIn the event this information is protected by the Federal Confidentiality of Alcohol and Drug Abuse Patient Records regulations: The Federal rules restrict any use of the information to criminally investigate or prosecute any alcohol or drug abuse patient.[facility] HospitalIn the event this information is protected by the Federal Confidentiality of Alcohol and Drug Abuse Patient Records regulations: The Federal rules restrict any use of the information to criminally investigate or prosecute any alcohol or drug abuse patient.[facility] HospitalIn the event this information is protected by the Federal Confidentiality of Alcohol and Drug Abuse Patient Records regulations: The Federal rules restrict any use of the information to criminally investigate or prosecute any alcohol or drug abuse patient.[facility] HospitalIn the event this information is protected by the Federal Confidentiality of Alcohol and Drug Abuse Patient Records regulations: The Federal rules restrict any use of the information to criminally investigate or prosecute any alcohol or drug abuse patient.[facility] HospitalIn the event this information is protected by the Federal Confidentiality of Alcohol and Drug Abuse Patient Records regulations: The Federal rules restrict any use of the information to criminally investigate or prosecute any alcohol or drug abuse patient.[facility] HospitalIn the event this information is protected by the Federal Confidentiality of Alcohol and Drug Abuse Patient Records regulations: The Federal rules restrict any use of the information to criminally investigate or prosecute any alcohol or drug abuse patient.[facility] HospitalIn the event this information is protected by the Federal Confidentiality of Alcohol and Drug Abuse Patient Records regulations: The Federal rules restrict any use of the information to criminally investigate or prosecute any alcohol or drug abuse patient.[facility] HospitalIn the event this information is protected by the Federal Confidentiality of Alcohol and Drug Abuse Patient Records regulations: The Federal rules restrict any use of the information to criminally investigate or prosecute any alcohol or drug abuse patient.[facility] HospitalIn the event this information is protected by the Federal Confidentiality of Alcohol and Drug Abuse Patient Records regulations: The Federal rules restrict any use of the information to criminally investigate or prosecute any alcohol or drug abuse patient.[facility] HospitalIn the event this information is protected by the Federal Confidentiality of Alcohol and Drug Abuse Patient Records regulations: The Federal rules restrict any use of the information to criminally investigate or prosecute any alcohol or drug abuse patient.[facility] HospitalIn the event this information is protected by the Federal Confidentiality of Alcohol and Drug Abuse Patient Records regulations: The Federal rules restrict any use of the information to criminally investigate or prosecute any alcohol or drug abuse patient.[facility] HospitalIn the event this information is protected by the Federal Confidentiality of Alcohol and Drug Abuse Patient Records regulations: The Federal rules restrict any use of the information to criminally investigate or prosecute any alcohol or drug abuse patient.[facility] HospitalIn the event this information is protected by the Federal Confidentiality of Alcohol and Drug Abuse Patient Records regulations: The Federal rules restrict any use of the information to criminally investigate or prosecute any alcohol or drug abuse patient.[facility] Reason for Visit (unrecogniz ed section and content) Reason Comments Physical Specialty Diagnoses / Procedures Referred By Contac t Referred To Contact Family Practice / FAMILY MEDICINE Diagnoses Encounter for follow-up examination after completed treatment for conditions other than malignant neoplasm Yearly checkup Procedures OFFICE/OUTPATIENT ESTABLISHED MOD MDM 30-39 MIN MYC PHYSICAL Justine Sanders MD [address] [place] [address] Alejo Fletcher MD [address] [place] [address] Referral ID Status Reason Start Date Expiration Date Visits Re quested Visits Authorized [id number] Closed 11/11/2021 11/10/2022 1 1 Reason Comments Yearly Exam Specialty Diagnoses / Procedures Referred By Contac t Referred To Contact [employer]ISH[employer] TENDER Diagnoses Annual physical exam Annual Procedures OFFICE/OUTPATIENT ESTABLISHED MOD MDM 30-39 MIN EST WHI ANNUAL PATIENT Self Tanya Brar MD [facility] [place] [address] [address] Referral ID Status Reason Start Date Expiration Date Visits Re quested Visits Authorized [id number] Closed 11/11/2021 11/10/2022 1 1 Reason Comments Results Reason Comments Patient Question Reason Comments Appointment Reason Comments Yearly Exam With Mammogram Specialty Diagnoses / Procedures Referred By Contac t Referred To Contact [employer] T[employer]ER Diagnoses annual Procedures WELLNESS EXAMS EST 40-64 YRS EST I ANNUAL PATIENT Cait James MD [address] [place] [address] Tanya Brar MD [address] [place] [id number] Referral ID Status Reason Start Date Expiration Date Visits Re quested Visits Authorized [id number] Closed 12/31/2022 11/10/2023 1 1 Reason Comments XRay Report Reason Comments ext document labs Reason Comments Physical Reason Comments Results Reason Comments Lesion Removal Specialty Diagnoses / Procedures Referred By [facility] Referred To Contact CT IMAGING Diagnoses Ex-smoker Lung nodule Lung nodules Procedures CT CHEST WO IVCON DIAGNOSTIC COMPUTED TOMOGRAPHY THORAX W/O CNTRST Alejo Fletcher MD [address] [place] [address] [place] [address] Referral ID Status Reason Start Date Expiration Date V isits Requested Visits Authorized [id number] Closed Auto-Generate d Referral 01/20/2024 03/05/2024 1 1 Reason Onset Date Comments Refill Request 06/28/2024 Reason Comments Follow Up Reason Comments Question Results Reason Comments Consult Diarrhea, fecal WBC positive Specialty Diagnoses / Procedures Referred By [facility] Referred To Contact General Surgery Diagnoses Diarrhea, unspecified type Procedures CONSULT TO GENERAL SURGERY OFFICE/OUTPATIENT [facility] 60 MINUTES Alejo Fletcher MD [facility] [place] [address] Referral ID Status Reason Start Date Expiration Date V isits Requested Visits Authorized [id number] Closed PCP Requested Referral 07/14/2024 07/13/2025 1 1 Reason Comments Follow Up colonoscopy Reason Comments Established Patient Diarrhea Patient reports righ t upper quadrant and flank pain intermittently. Reason Comments Outside [id number] Ordered Reason Comments Outside Nephrology Reason Comments Results Outside/CT Reason Comments Results Outside labs Reason Comments Orders Care Teams (unrecognized sec tion and content) 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 Start Date End Date Alejo Fletcher MD [address] [place] [address] PCP - General Family Practice 01/18/16 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 Start Date End Date Alejo Fletcher MD [address] [place] [address] PCP - General Family Practice 01/18/16 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 Start Date End Date Alejo Fletcher MD [address] [place] [address] PCP - General Family Practice 01/18/16 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 Start Date End Date Alejo Fletcher MD [address] [place] [address] PCP - General Family Practice 01/18/16 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 Start Date End Date Alejo Fletcher MD [address] [place] [address] PCP - General Family Practice 01/18/16 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 Start Date End Date Alejo Fletcher MD [address] [place] [address] PCP - General Family Practice 01/18/16 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 Start Date End Date Alejo Fletcher MD [address] [place] [address] PCP - General Family Medicine 01/18/16 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 Start Date End Date Alejo Fletcher MD [address] [place] [address] PCP - General Family Medicine 01/18/16 Team Status: Active Member Role Status Dates Dr. Alejo Fletcher MD Family Provider Active Dr. Alejo Flecther MD Primary Care Provider Active Team Status: Inactive Member Role Status Dates Dr. Alejo Fletcher MD Primary Care Provider Active Dr. Pooja Ac DO Attending Provider, Yazmin daniel Active Team Status: Inactive Member Role Status Dates Dr. lAejo Fletcher MD Primary Care Provider Active Dr. Avelina Rios MD Attending Provider, Referring Richie daniel Active 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 Start Date End Date Alejo Fletcher MD [address] [facility] [place] [address] PCP - General Family Medicine 01/18/16 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 Start Date End Date Alejo Fletcher MD [address] [facility] [place] [address] PCP - General Family Medicine 01/18/16 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 Start Date End Date Alejo Fletcher MD [address] [place] [address] PCP - General Family Medicine 01/18/16 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 Start Date End Date Alejo Fletcher MD [address] [place] [address] PCP - General Family Medicine 01/18/16 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 Start Date End Date Alejo Fletcher MD [address] [place] [address] PCP - General Family Medicine 01/18/16 Team Status: Inactive Member Role Status Dates Dr. Alejo Fletcher MD Primary Care Provider Active Dr. Arlette Storey DO Attending Provider, Referring Richie rubenkami Active 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 Start Date End Date Alejo Fletcher MD [address] [facility] [address] PCP - General Family Medicine 01/18/16 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 Start Date End Date Alejo Fletcher MD [address] [facility] [address] PCP - General Family Medicine 01/18/16 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 Start Date End Date Alejo Fletcher MD [address] [place] [address] PCP - General Family Medicine 01/18/16 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 Start Date End Date Alejo Fletcher MD [address] [place] [address] PCP - General Family Medicine 01/18/16 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 Start Date End Date Alejo Fletcher MD [address] [place] [address] PCP - General Family Medicine 01/18/16 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 Start Date End Date Alejo Fletcher MD [address] [place] [address] PCP - General Family Medicine 01/18/16 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 Start Date End Date Alejo Fletcher MD [address] [place] [address] PCP - General Family Medicine 01/18/16 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 Start Date End Date Alejo Fletcher MD [address] [place] [address] PCP - General Family Medicine 01/18/16 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 Start Date End Date Alejo Fletcher MD [address] [place] [address] PCP - General Family Medicine 01/18/16 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 Start Date End Date Alejo Fletcher MD [address] [place] [address] PCP - General Family Medicine 01/18/16 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 Start Date End Date Alejo Fletcher MD [address] [place] [address] PCP - General Family Medicine 01/18/16 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 Start Date End Date Alejo Fletcher MD [address] [place] [address] PCP - General Family Medicine 01/18/16 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 Start Date End Date Alejo Fletcher MD [address] [place] [address] PCP - General Family Medicine 01/18/16 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 Start Date End Date Alejo Fletcher MD [address] [place] [address] PCP - General Family Medicine 01/18/16 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 Start Date End Date Alejo Fletcher MD [address] [place] [address] PCP - General Family Medicine 01/18/16 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 Start Date End Date Alejo Fletcher MD [address] [place] [address] PCP - General Family Medicine 01/18/16 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 Start Date End Date Alejo Fletcher MD [address] [place] [address] PCP - General Family Medicine 01/18/16 Jia Alvarado APRN.CNP [address] [place] [address] [employer] [facility] 10/17/24 Xochilt Rodriguez PA-C [address] [facility] [place] [address] [facility] 10/17/24 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 Start Date End Date Alejo Fletcher MD [address] [facility] [place] [address] PCP - General Family Medicine 01/18/16 Jia Alvarado APRN.CUSTOMER DATA TECHNICIAN [address] [place] [address] [facility] 10/17/24 Xochilt Rodriguez PA-C [address] [place] [address] [facility] 10/17/24 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 Start Date End Date Alejo Fletcher MD [address] [place] [address] PCP - General Family Medicine 01/18/16 Jia Alvarado, DOLORES.CUSTOMER DATA TECHNICIAN [address] [place] [address] [facility] 10/17/24 Xochilt Rodriguez PA-C [address] [facility] [place] [address] [facility] 10/17/24 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 Start Date End Date Alejo Fletcher MD [address] [facility] [place] [address] PCP - General Family Medicine 01/18/16 Jia Alvarado APRN.CUSTOMER DATA TECHNICIAN [address] [place] [address] [facility] 10/17/24 Xochilt Rodriguez PA-C [address] [place], [place] [address] [facility] 10/17/24 Team Status: Active Member Role Status Dates Dr. Alejo Fletcher MD Primary Care Provider Active Team Status: Inactive Member Role Status Dates Dr. Alejo Fletcher MD Primary Care Provider Active Start: November 07, 2024 End: November 07, 2024 Dr. Pooja Ac DO Attending Provider Active Start: November 07, 2024 End: November 07, 2024 Dr. Pooja Ac DO Emergency Provider Active Start: November 07, 2024 End: November 07, 2024 Team Status: Inactive Member Role Status Dates Dr. Alejo Fletcher MD Primary Care Provider Active Start: December 23, 2024 End: December 23, 2024 Dr. Arlette Storey DO Attending Provider Active Start: December 23, 2024 End: December 23, 2024 Dr. Arlette Storey DO Referring Provider Active Start: December 23, 2024 End: December 23, 2024 Team Status: Inactive Member Role Status Dates Dr. Alejo Fletcher MD Primary Care Provider Active Start: January 01, 2025 End: January 01, 2025 Dr. Alejo Fletcher MD Referring Provider Active Start: January 01, 2025 End: January 01, 2025 Dr. Avelina Rios MD Attending Provider Active Start: January 01, 2025 End: January 01, 2025 Team Status: Active Member Role Status Dates Dr. Alejo Fletcher MD Primary Care Provider Active Start: January 04, 2025 Dr. Arlette Storey DO Attending Provider Active Start: January 04, 2025 Dr. Arlette Storey DO Referring Provider Active Start: January 04, 2025 Team Status: Active Member Role Status Dates Dr. Alejo Fletcher MD Primary Care Provider Active Start: January 09, 2025 Dr. Arlette Storey DO Attending Provider Active Start: January 09, 2025 Dr. Arlette Storey DO Referring Provider Active Start: January 09, 2025 Team Status: Active Member Role Status Dates Dr. Alejo Fletcher MD Primary Care Provider Active Start: January 12, 2025 Dr. Arlette Storey DO Attending Provider Active Start: January 12, 2025 Dr. Arlette Storey DO Referring Provider Active Start: January 12, 2025 Team Status: Inactive Member Role Status Dates Dr. Alejo Fletcher MD Primary Care Provider Active Start: January 04, 2025 End: January 04, 2025 Dr. Arlette Storey DO Attending Provider Active Start: January 04, 2025 End: January 04, 2025 Dr. Arlette Storey DO Referring Provider Active Start: January 04, 2025 End: January 04, 2025 Team Status: Inactive Member Role Status Dates Dr. Alejo Fletcher MD Primary Care Provider Active Start: January 09, 2025 End: January 09, 2025 Dr. Arlette Storey DO Attending Provider Active Start: January 09, 2025 End: January 09, 2025 Dr. Arlette Storey DO Referring Provider Active Start: January 09, 2025 End: January 09, 2025 Team Status: Inactive Member Role Status Dates Dr. Alejo Fletcher MD Primary Care Provider Active Start: January 12, 2025 End: January 12, 2025 Dr. Arlette Storey DO Attending Provider Active Start: January 12, 2025 End: January 12, 2025 Dr. Arlette Storey DO Referring Provider Active Start: January 12, 2025 End: January 12, 2025 Team Status: Active Member Role Status Dates Dr. Chavo Mendosa MD Primary Care Provider Active Team Status: Inactive Member Role Status Dates Dr. Chavo Mendosa MD Primary Care Provider Active Start: January 27, 2025 End: January 27, 2025 Dr. Chavo Mendosa MD Attending Provider Active Start: January 27, 2025 End: January 27, 2025 Team Status: Inactive Member Role Status Dates Dr. Chavo Mendosa MD Primary Care Provider Active Start: February 12, 2025 End: February 12, 2025 Dr. Chavo Mendosa MD Attending Provider Active Start: February 12, 2025 End: February 12, 2025 Dr. Chavo Mendosa MD Referring Provider Active Start: February 12, 2025 End: February 12, 2025 Team Status: Inactive Member Role Status Dates Dr. Chavo Mendosa MD Primary Care Provider Active Start: March 09, 2025 End: March 09, 2025 Dr. Chavo Mendosa MD Referring Provider Active Start: March 09, 2025 End: March 09, 2025 Dr. Anna Ragsdale MD Attending Provider Active Start: March 09, 2025 End: March 09, 2025 Team Status: Inactive Member Role Status Dates Dr. Arlette Storey DO Attending Provider Active Start: March 25, 2025 End: March 25, 2025 Dr. Arlette Storey DO Referring Provider Active Start: March 25, 2025 End: March 25, 2025 Dr. Chavo Mendosa MD Primary Care Provider Active Start: March 25, 2025 End: March 25, 2025 Dr. Anna Ragsdale MD Other Provider Active Star t: March 25, 2025 End: March 25, 2025 Team Status: Inactive Member Role Status Dates Dr. Chavo Mendosa MD Primary Care Provider Active Start: April 01, 2025 End: April 01, 2025 Dr. Anna Ragsdale MD Attending Provider Active Start: April 01, 2025 End: April 01, 2025 Dr. Anna Ragsdale MD Referring Provider Active Start: April 01, 2025 End: April 01, 2025 Team Status: Active Member Role Status Dates Dr. Chavo Mendosa MD Primary Care Provider Active Start: April 01, 2025 Dr. Anna Ragsdale MD Attending Provider Active Start: April 01, 2025 Goals (unrecognized section and content) Goals may be documented in a n alternate sectionGoals may be documented in an alternate sectionGoals may be documented in an alternate sectionGoals may be documented in an alternate sectionGoals may be documented in an alternate sectionGoals may be documented in an alternate sectionGoals may be documented in an alternate sectionGoals may be documented in an alternate sectionGoals may be documented in an alternate sectionGoals may be documented in an alternate sectionGoals may be documented in an alternate sectionGoals may be documented in an alternate sectionGoals may be documented in an alternate sectionGoals may be documented in an alternate section FOR RECORDS PERTAINING TO PATIENTS WHO ARE OR HAVE BEEN ENROLLED IN A CHEMICAL DEPENDENCY/SUBSTANCEABUSE PROGRAM, SOME INFORMATION MAY BE OMITTED. This clinical summary was aggregated from multiple sources. Caution should be exercised in using it in the provision of clinical care. This summary normalizes information from multiple sources, and as a consequence, information in this document may materially change the coding, format and clinical context of patient data. In addition, data may be omitted in some cases. CLINICAL DECISIONS SHOULD BE BASED ON THE PRIMARY CLINICAL RECORDS. [facility] [email or web address] [facility]. provides no warranty or guarantee of the accuracy or completeness of information in this document.
[2025-06-23 17:08] LABS: H. PYLORI STOOL AG Negative (Negative)
== END | disposition home or self-care (01) ==
LOC: LABSPEC 06:32
PROVIDERS: PCP Family Medicine Geriatric Medicine; Referring Provider Family Medicine Geriatric Medicine; Visit Provider Family Medicine Geriatric Medicine
DX: A04.8 Other specified bacterial intestinal infections (principal)
CPT/HCPCS: 87338

== ENCOUNTER → 2025-07-26 | Outpatient (CLI) | payer OTHER, SELFPAY ==
--- NOTE | 2025-07-26 07:47 | US_ITS ---
PROCEDURE: ABD LIMITED W/ ELASTOGRAPHY REASON FOR EXAM: FATTY LIVER COMPARISON: None. TECHNIQUE: Procedure Code: [id number] Modality: US Procedure: ABD LIMITED W/ ELASTOGRAPHY Right upper quadrant abdominal ultrasound. [facility]isha ElastQ Imaging shear wave elastography for non-invasive assessment of liver tissue stiffness. [employer]isha EPIQ Elite. FINDINGS: LIVER: Size: Unremarkable Length: 15 cm Echotexture: Contour: Normal Lesions: None identified Elastography: EQI Med: 9.1 kPa EQI Med Giovanny: 1.73 m/s IQR/Med: 11 %* GALLBLADDER: Small amount of sludge is seen in the gallbladder lumen. COMMON BILE DUCT: Normal measuring 2.4 mm . PANCREAS: Normal Mild right renal cortical thinning. There are 3 tiny nonobstructive right intrarenal calculi in the lower pole.. No right upper quadrant ascites. US/ABD Limited w/ Elastography IMPRESSION: Moderate degree of hepatic fibrosis. Small amount of sludge is seen in the gallbladder lumen. There are 3 small nonobstructive right intrarenal calculi. Reference Values: SRU <1.37 m/s (5.7kPa): No to mild fibrosis 1.37 m/s - 2.2 m/s: Moderate to severe fibrosis >2.2 m/s (15kPa): Significant fibrosis / cirrhosis METAVIR Score F2 or higher: 1.34 m/s (5.7kPa) F3 or higher: 1.55 m/s (7.3kPa) F4: 1.80 m/s (10kPa) * If the IQR/Med is >30%, the variance in the measurements is a large and the a ccuracy of the measurement may be in question. Reading Location: [place] [id number]
== END | disposition home or self-care (01) ==
LOC: US 07:43
PROVIDERS: PCP Family Medicine Geriatric Medicine; Referring Provider Family Medicine Geriatric Medicine; Visit Provider Family Medicine Geriatric Medicine
DX: K76.0 Fatty (change of) liver, not elsewhere classified (principal)
CPT/HCPCS: 76705; 76981

== ENCOUNTER → 2025-08-03 | Outpatient (CLI) | payer OTHER, SELFPAY ==
[2025-08-03 16:15] LABS: Hematocrit 43.3 % (37-47); Hemoglobin 14.2 g/dL (12.0-15.0); Immature Granulocytes Count 0.020 X10^3/uL (0.0-0.0); Mean Corp Hgb Conc 32.8 g/dL (32-36); Mean Corpuscular Volume 92.5 fL (81-99); Mean Platelet Vol. 10.2 fl (6.2-12.0); NRBC Flagged by Analyzer 0 % (0-5); Platelet Count 274 K/mm3 (150-450); RBC Distribution Width CV 12.8 % (11.6-14.6); RBC Distribution Width SD 43.7 fl (35.1-43.9); Red Blood Count 4.68 M/mm3 (4.2-5.4); White Blood Count 8.2 K/mm3 (4.4-11.0)
[2025-08-03 16:39] LABS: Bilirubin, Direct 0.09 mg/dL (0.00-0.30)
[2025-08-03 16:45] LABS: AST(SGOT) 25 U/L (<=31); Alanine Aminotransfer ALT/SGPT 18 U/L (<=34); Albumin, Serum 4.6 g/dL (3.4-4.8); Alkaline Phosphatase 78 U/L (35-104); Anion Gap 11 (5-15); BUN 29 mg/dL (4-19); BUN/Creat Ratio 23.6 RATIO (10-20); Calcium,Total 10.1 mg/dL (7.6-11.0); Carbon Dioxide 26.8 mmol/L (21.0-32.0); Chloride 102 mmol/L (98-108); Cholesterol 190 mg/dL (<=200); Globulin 2.7 g/dL (2.2-4.2); Glucose 138 mg/dL (70-99); Low Density Lipoprotein Calc. 76 mg/dL; Potassium 4.2 mmol/L (3.3-5.1); Triglycerides 291 mg/dL; Very Low Density Lipoprotein 58 mg/dL (5-40); cholesterol:hdl ratio screen 3.38
== END | disposition home or self-care (01) ==
LOC: POLAB3 15:59
PROVIDERS: Nurse Practitioner Family; PCP Family Medicine Geriatric Medicine; Visit Provider Family Medicine Geriatric Medicine
DX: E78.5 Hyperlipidemia, unspecified (principal); I10 Essential (primary) hypertension; E03.9 Hypothyroidism, unspecified
CPT/HCPCS: 36415; 80053; 80061; 80076; 82248; 84443; 85025

== ENCOUNTER → 2025-11-01 | Outpatient (CLI) | payer OTHER, SELFPAY | END | disposition home or self-care (01) | LOC: RAD 07:44 | PROVIDERS: PCP Family Medicine Geriatric Medicine; Referring Provider Internal Medicine; Visit Provider Internal Medicine | DX: R15.9 Full incontinence of feces (principal); R15.2 Fecal urgency ==

== ENCOUNTER → 2025-11-06 | Outpatient (CLI) | payer OTHER, SELFPAY ==
--- OUTSIDE RECORDS SUMMARY | 2025-11-06 10:13 | XMS RPT_ITS | CCD ---
Author Organization [facility] CliniSypr Care Team Providers Care Focuser Name Role Phone Alejo Fletcher MD Primary Care Provider [phone] Alejo Fletcher MD Primary Care Provider [phone] Jia Alvarado APRN.CNP Unavailable Xochilt Rodriguez PA-C [...] Provider Dr. Pooja Ac DO Attending Provider [phone] Osorio FRAZIER, Dr. Patton Emergency Provider Raleigh FRAZIER, Dr. Chong Attending Provider Raleigh FRAZIER, Dr. Chong Referring Provider Justine PEREIRA, Dr. Dhillon Referring Provider Blanca PEREIRA, Dr. Quan Attending Provider [phone] Deondre PEREIRA, Dr. Chavo Castellanos Primary Care Provider [phone] Deondre PEREIRA, Dr. Chavo Castellanos Attending Provider Deondre PEREIRA, Dr. Chavo Castellanos Referring Provider Justine PEREIRA, Dr. Dhillon Primary Care Provider Jn PEREIRA, Dr. Castillo Attending Provider Jn PEREIRA, Dr. Castillo Other Provider Jn PEREIRA, Dr. Castillo Referring Provider Deondre PEREIRA, Dr. Chavo Castellanos Primary Care Provider Deondre PEREIRA, Dr. Chavo Castellanos Referring Provider Dr. Arlette Storey DO Attending Provider Raleigh FRAZIER, Dr. Chong Referring Provider Blanca PEREIRA, Dr. Quan Attending Provider [phone] Deondre PEREIRA, Dr. Chavo Castellanos Attending Provider Deondre PEREIRA, Dr. Chavo Castellanos Primary Care Physician [phone] Blanca PEREIRA, Dr. Quan Attending Physician Deondre PEREIRA, Dr. Chavo Castellanos Attending Physician [phone] Deondre PEREIRA, Dr. Chavo Castellanos Referring Provider Deondre, Chavo Chi Referring Unavailable Anna Ragsdale Attending Unavailable Deondre, Chavo Chi Primary Care Unavailable Pooja Ac Attending Unavailable Alejo Fletcher Primary Care Unavailable Deondre, Chavo Chi Referring Unavailable Deondre, Chavo Chi Attending Unavailable Deondre, Chavo Chi Primary Care Unavailable Deondre, Chavo Chi Attending Unavailable Deondre, Chavo Chi Primary Care Unavailable Deondre, Chavo Chi Referring Unavailable Jn, Anna Referring Unavailable Jn, Anna Attending Unavailable Deondre, Chavo Chi Primary Care Unavailable Deondre, Chavo Chi Referring Unavailable Deondre, Chavo Chi Attending Unavailable Deondre, Chavo Chi Primary Care Unavailable Deondre, Chavo Chi Referring Unavailable Deondre, Chavo Chi Attending Unavailable Deondre, Chavo Chi Primary Care Unavailable Avelina Rios Attending Unavailable Justine, Alejo Referring Unavailable Justine, Alejo Primary Care Unavailable Deondre, Chavo Chi Attending Unavailable Deondre, Chavo Chi Primary Care Unavailable Raleigh, Arlette Attending Unavailable Raleigh, Arlette Referring Unavailable Justine, Alejo Primary Care Unavailable Raleigh, Arlette Attending Unavailable Justine, Alejo Primary Care Unavailable Raleigh, Arlette Attending Unavailable Raleigh, Arlette Referring Unavailable Justine, Alejo Primary Care Unavailable Raleigh, Arlette Referring Unavailable Raleigh, Arlette Attending Unavailable Justine, Alejo Primary Care Unavailable Raleigh, Arlette Referring Unavailable Raleigh, Arlette Attending Unavailable Jn, Anna Consulting Unavailable Deondre, Chavo Chi Primary Care Unavailable Raleigh, Arlette Attending Unavailable Raleigh, Arlette Referring Unavailable Justine, Alejo Primary Care Unavailable Deondre, Chavo Chi Attending Unavailable Deondre, Chavo Chi Primary Care Unavailable Jn, Anna Attending Unavailable Deondre, Chavo Chi Primary Care Unavailable Allergies Allergy Classification Reported Allergen(s) Allergy Type Date of Onset Reaction(s) Facility (20 sources) Nitrofurantoin; Translations: [NITROFURANTOIN] Drug Allergy 10-16-20 16 Other: See Comments [facility] Work Phone: (20 sources) Yeast, Dried; Translations: [YEAST, DRIED] Propensity to adverse reactions to drug 11-27-19 06 Unknown [facility] Work Phone: (20 sources) Candi albicans Drug Allergy 11-08-20 21 Other [facility] (1 source) Candi albicans allergenic extract Drug Allergy 03-09-20 [facility] Repository (1 source) Nitrofurantoin Drug Allergy 03-09-20 25 [facility] Repository Medications Current Medications Medication Drug Class(es) Dates Sig (Normalized) Sig (Original) amoxicillin 500 mg oral capsule (2 sources) Penicillin-class Antibacterial Start: 07-14-2024 End: 07-28-2024 take 2 capsules by mouth twice daily amoxicillin (AMOXIL) 500 mg capsule Take 2 capsules by mouth two times a day for 14 days. 56 capsule 07/14/2024 07/28/2024 Active aspirin 81 mg delayed release oral tablet (6 sources) Platelet Aggregation Inhibitor, Nonsteroidal Anti-inflammatory Drug Start: 03-09-2025 take 1 tablet by mouth once daily 24 hr budesonide 9 mg extended release [...] topical cream (20 sources) Corticosteroid Start: 02-01-2023 Start: 02-01-2023 Clobetasol Act christa 1 APPLIC [...] daily for 7-10 days prn flares. Cyclosporine (2 sources) Calcineurin Inhibitor Immunosuppressant Start: 03-01-2025 Cyclosporine 0.05 % dropperette (4 sources) Start: 03-01-2025 Cyclosporine 0.05 % dropperette Active 1 NMA OPHTHALMIC THREE TIMES A DAY March 01, 2025 12:00am estradiol 0.1 mg/ml vaginal cream (20 sources) Estrogen Start: 02-01-2023 Start: 02-01-2023 Estradiol Acti ve 1 APPLIC [...] a week. hydroCHLOROthiazide 12.5 mg oral capsule (6 sources) Thiazide Diuretic Start: 03-01-20 take 1 capsule by mouth once daily MULTIVITAMIN ORAL (20 sources) MULTIVITAMIN ORA L Take by mouth. Active MULTIVITAMIN ORA L Take by mouth. 0 Active Comment on above: Take by mouth. Multivitamin preparation (4 sources) Start: 02-01-2023 take 1 tablet by mouth once daily Multivitamin Active 1 TABLET PO DAILY January 31, 2023 11:00pm Start: 02-01-2023 take 1 tablet by campbell once daily Multivitamin Active 1 TABLET PO [...] 10 mL injection (DEFINITY) polyethylene glycol 3350 [id number] mg / potassium chloride 2970 mg / sodium bicarbonate 6740 mg / sodium chloride 5860 mg / sodium sulfate 28806 mg powder for oral solution (1 source) [...] take 1 tablet by mouth once daily Start: 02-27-2019 End: 07-01-2024 take 10 mEq [...] PO Q8H as needed for pain 10 3 March 28, 2023 March 01, 2025 3:37pm Calculus of kidney Calculus of kidney Start: 12-25-2022 take 1 tablet by campbell [...] 0842, Preprocedure cephalexin 500 mg oral capsule (16 sources) Cephalosporin Antibacterial Start: 03-28-2023 End: 03-01-2025 take 1 capsule by mouth every twelve hours Cephalexin 500 mg capsule Discontinued 500 mg PO EVERY 12 HOURS 6 3 March 28, 2023 12:00am March 01, 2025 3:37pm post-operative Start: 02-07-2023 take 500 mg by mouth every twelve hours Cephalexin Active 500 MG PO EVERY 12 HOURS 6 3 February 07, 2023 12:00am cyanocobalamin, vitamin B-12 , (VITAMIN B-12 ORAL) (10 sources) End: 01-15-2024 cyanocobalamin, vitamin B-12 , (VITAMIN B-12 ORAL) Take by mouth. 0 01/15/2024 Discontinued cyanocobalamin, vitamin B-12, (VITAMIN B-12 ORAL) Take by mouth. 0 Active Comment on above: Take by mouth. diphenhydrAMINE (1 source) Histamine-1 Receptor Antagonist Start: 024 End: 024 12.5-50 mg, INTRAVENOUS, DIRECTED, Starting on Magali [...] mg oral tablet (9 sources) Antihistamine Start: 023 End: take 1 tablet by mouth every eight hours as needed hydrOXYzine HCl (ATARAX) 25 mg tablet Take 1 tablet by mouth three times daily as needed for itching/rash. 30 tablet 1 02/06/2023 01/15/2024 Discontinued Comment on above: Take 1 tablet by [facility] three times daily as needed for itching/rash. lactobacillus acidophilus [id number] unt oral capsule (20 sources) Start: End: take 10 capsules by mouth once daily Lactobacillus Acidophilus (Probiotic) 10 billion cell Capsule Discontinued [id number] NMA PO DAILY February 01, 2023 12:00am [...] FOR PROCEDURAL SEDATION ONLY, Intraprocedure Multivitamin Tablet (12 sources) Start: 023 End: 025 Multivitamin Tablet Discontinued 1 {tbl} PO DAILY February 01, 2023 12:00am March 09, 2025 11:25am Start: 02-01-2023 Multivitamin T ablet Active 1 {tbl} PO DAILY February 01, 2023 12:00am Start: 02-01-2023 Multivitamin T ablet Active 1 {tbl} PO DAILY January 31, 2023 11:00pm phenazopyridine hydrochloride 200 mg oral tablet (15 sources) Start: 03-28-2023 End: 03-09-2025 take 1 tablet by mouth three times daily as needed for muscle spasms Phenazopyridine (Pyridium) 200 mg tablet Discontinued 200 mg PO 3 TIMES DAILY NEEDED as needed for Bladder Spasms 30 7 0 March 28, 2023 12:00am March 09, 2025 [...] mg capsule Discontinued 0.4 mg PO DAILY 7 0 November 07, 2024 1:00am March 09, 2025 11:26am Vibegron (16 sources) Start: 02-01-2023 End: 03-09-2025 take 1 tablet by mouth once daily Vibegron (Gemtesa) 75 mg Tablet Discontinued 75 mg PO DAILY February 01, 2023 12:00am March 09, 2025 11:26am Start: 02-01-2023 take 1 tablet by [facility] once daily Vibegron (Gemtesa) 75 mg Tablet [...] daily. vitamin b12 0.05 mg oral tablet (16 sources) Vitamin B12 Start: 02-01-2023 End: 03-09-2025 [...] Chronic Coronary atherosclerosis and other heart disease (11 sources) Coronary arteriosclerosis; Translations: [Atherosclerotic heart disease of [place] coronary artery without angina pectoris] Onset: 03-09-2025 03-09-2025 Chronic Disorders of lipid metabolism (7 sources) Hyperlipidemia; Translations: [Hyperlipidemia, unspecified] Onset: 08-16-2025 03-01-2025 Chronic Diverticulosis and diverticulitis (20 sources) Diverticula of intestine; Translations: [Diverticulosis of intestine, part unspecified, without perforation or abscess without bleeding] Onset: 06-24-2018 06-24-2018 Chronic Essential hypertension (11 sources) Hypertensive disorder; Translations: [Essential (primary) hypertension] Onset: 03-09-2025 03-09-2025 Chronic Fluid and electrolyte disorders (6 sources) Hypokalemia; Translations: [Hypokalemia] 03-01-2025 Episodic Intestinal infection (1 source) Other specified bacterial intestinal infections; Translations: [Other specified bacterial intestinal infections] Onset: 06-29-2025 Episodic Noninfectious gastroenteritis (2 sources) Collagenous colitis; Translations: [Collagenous colitis] Onset: 08-07-2024 08-06-2024 Chronic Nutritional deficiencies (6 sources) Vitamin D deficiency; Translations: [Vitamin D deficiency, unspecified] 03-01-2025 Chronic Other gastrointestinal disorders (2 sources) Irritable bowel syndrome with diarrhea; Translations: [Irritable bowel syndrome with diarrhea] Chronic Other gastrointestinal disorders (20 sources) Irritable bowel syndrome; Translations: [Irritable bowel syndrome without diarrhea] Onset: 08-18-2008 01-18-2016 Chronic Other gastrointestinal disorders (2 sources) Diarrhea, unspecified; Translations: [Diarrhea, unspecified type] Onset: 07-01-2024 Episodic Other liver diseases (1 source) Fatty (change of) liver, not elsewhere classified; Translations: [Fatty (change of) liver, not elsewhere classified] Onset: 08-10-2025 Chronic Other skin disorders (20 sources) Lichen sclerosus et atrophicus; Translations: [Circumscribed scleroderma] 11-06-2021 Chronic Residual codes; unclassified (6 sources) H/O: Disorder; Translations: [Personal history of [...] behavior of skin] Onset: 01-15-2024 01-15-2024 Episodic Nonspecific chest pain (20 sources) Chest pain; Translations: [Chest pain, unspecified] Onset: 12-29-2005 Resolved: 01-14-2008 01-14-2008 Episodic Other connective tissue disease (19 sources) [...] Onset: 03-20-2008 Resolved: 08-18-2008 08-18-2008 Episodic Other lower respiratory disease (20 sources) [...] Test Name Value Interpretation Reference Range Facility Absolute lymphocyte countOrd ered By: Chavo Mendosa on 08-03-2025 Lymphocytes Auto (Unsp spec) [#/Vol] 2.14 10*3/uL 0.83-4.51 [facility] Absolute neutrophil countOrd ered By: Chavo Mendosa on 08-03-2025 Neutrophils (Bld) [#/Vol] 5.3 10*3/uL 2.0-7.7 [facility] Anion gap in Serum or Plasma Ordered By: Chavo Mendosa on 08-03-2025 Anion gap [Moles/Vol] 11 mmol/L 5-15 [facility] Automated lymphocyte count a s percentage of total leukocytesOrdered By: Chavo Mendosa on 08-03-2025 Lymphocytes/100 WBC Auto (Unsp spec) 26.3 % 19-41 [facility] BUN/creatinine ratioOrdered By: Chavo Mendosa on 08-03-2025 Urea nitrogen/Creatinine [Mass ratio] 23.6 mg/mg High 10-20 [facility] Basophil percentageOrdered B y: Chavo Mendosa on 08-03-2025 Basophils/100 WBC (Bld) 0.7 % 0-1 [facility] Bilirubin directOrdered By: Jami Moi on 08-03-2025 Bilirubin.direct [Mass/Vol] 0.09 mg/dL Normal 0.00-0.30 [facility] Comment on above: Performed By: #### L [id number] #### [facility] [address] [place], [address] Bilirubin, totalOrdered By: Chavo Mendosa on 08-03-2025 Bilirubin [Mass/Vol] 0.19 mg/dL 0.00-1.30 [facility] CBC W/Diff, Automatedon 07-13 Absolute Lymph 2.14 X10 3/uL Normal 0.83-4.51 [facility] Comment on above: Order Comment: CC LI PID AND CMP TO JAMI GOMES Performed By: #### L 500.7000, [id number], L502.000 #### [facility] [address] [place], [address] Absolute Neut 5.3 X10 3/uL Normal 2.0-7.7 [facility] Comment on above: Order Comment: CC LI PID AND CMP TO JAMI GOMES Performed By: #### L 500.7000, [id number], [id number] #### [facility] [address] [place], [address] Basophils/100 WBC (Bld) 0.7 % Normal 0-1 [facility] Comment on above: Order Comment: CC LI PID AND CMP TO JAMI GOMES Performed By: #### L 500.7000, [id number], [id number] #### [facility] [address] [place], [address] Eosinophils/100 WBC (Bld) 1.7 % Normal 0-5 [facility] Comment on above: Order Comment: CC LI PID AND CMP TO JAMI GOMES Performed By: #### L 500.7000, [id number], [id number] #### [facility] [address] [place], [address] Erythrocyte distribution width (RBC) [Ratio] 12.8 % Normal 11.6-14.6 [facility] Comment on above: Order Comment: CC LI PID AND CMP TO JAMI GOMES Performed By: #### L 500.7000, [id number], L502.000 #### [facility] [address] [place], [address] Hematocrit (Bld) [Volume fraction] 43.3 % Normal 37-47 [facility] Comment on above: Order Comment: CC LI PID AND CMP TO JAMI GOMES Performed By: #### L 500.7000, [id number], [id number] #### [facility] [address] [place], [address] Hemoglobin (Bld) [Mass/Vol] 14.2 g/dL Normal 12.0-15.0 [facility] Comment on above: Order Comment: CC LI PID AND CMP TO JAMI GOMES Performed By: #### L 500.7000, [id number], [id number] #### [facility] [address] [place], [address] IG% 0.200 Normal 0.0-0.9 [facility] Comment on above: Order Comment: CC LI PID AND CMP TO JAMI GOMES Result Comment: IG% - Immature Granulocytes (promyelocytes, myelocytes and metamyelocytes) > 1% indicates that a LEFT SHIFT is Present. Performed By: #### L 500.7000, [id number], L502.000 #### [facility] [address] [place], [address] Lymphocytes/100 WBC (Bld) 26.3 % Normal 19-41 [facility] Comment on above: Order Comment: CC LI PID AND CMP TO JAMI GOMES Performed By: #### L 500.7000, [id number], L502.000 #### [facility] [address] [place], [address] MCH (RBC) [Entitic mass] 30.3 pg Normal 27.0-32.0 [facility] Comment on above: Order Comment: CC LI PID AND CMP TO JAMI GOMES Performed By: #### L 500.7000, [id number], L502.000 #### [facility] [address] [place], [address] MCHC (RBC) [Mass/Vol] 32.8 g/dL Normal 32-36 [facility] Comment on above: Order Comment: CC LI PID AND CMP TO JAMI GOMES Performed By: #### L 500.7000, [id number], [id number] #### [facility] [address] [place], [address] MCV (RBC) [Entitic vol] 92.5 fL Normal 81-99 [facility] Comment on above: Order Comment: CC LI PID AND CMP TO JAMI GOMES Performed By: #### L 500.7000, [id number], L502.000 #### [facility] [address] [place], [address] Monocytes/100 WBC (Bld) 6.4 % Normal 0-10 [facility] Comment on above: Order Comment: CC LI PID AND CMP TO JAMI GOMES Performed By: #### L 500.7000, [id number], [id number] #### [facility] [address] [place], [address] Neutrophils/100 WBC (Bld) 64.7 % Normal 47-70 [facility] Comment on above: Order Comment: CC LI PID AND CMP TO JAMI GOMES Performed By: #### L 500.7000, [id number], L502.000 #### [facility] [address] [place], [address] Nucleated RBC (Bld) [#/Vol] 0 10*3/uL Normal 0-5 [facility] Comment on above: Order Comment: CC LI PID AND CMP TO JAMI GOMES Performed By: #### L 500.7000, [id number], [id number] #### [facility] [address] [place], [address] Platelet mean volume (Bld) [Entitic vol] 10.2 fL Normal 6.2-12.0 [facility] Comment on above: Order Comment: CC LI PID AND CMP TO JAMI GOMES Performed By: #### L 500.7000, [id number], L502.000 #### [facility] [address] [place], [address] Platelets (Bld) [#/Vol] 274 10*3/uL Normal 150-450 [facility] Comment on above: Order Comment: CC LI PID AND CMP TO JAMI GOMES Performed By: #### L 500.7000, [id number], [id number] #### [facility] [address] [place], [address] RBC (Bld) [#/Vol] 4.68 10*6/uL Normal 4.2-5.4 [facility] Comment on above: Order Comment: CC LI PID AND CMP TO JAMI GOMES Performed By: #### L 500.7000, [id number], [id number] #### [facility] [address] [place], [address] RDW SD 43.7 fl Normal 35.1-43.9 [facility] Comment on above: Order Comment: CC LI PID AND CMP TO JAMI GOMES Performed By: #### L 500.7000, [id number], L502.000 #### [facility] [address] [facility] [id number] WBC (Bld) [#/Vol] 8.2 10*3/uL Normal 4.4-11.0 [facility] Comment on above: Order Comment: CC LI PID AND CMP TO JAMI GOMES Performed By: #### L 500.7000, [id number], [id number] #### [facility] [address] [place], [place], [address] Calculated very low density lipoprotein (VLDL) cholesterol measurementOrdered By: Chavo Mendosa on 08-03-2025 Calculated very low density lipoprotein (VLDL) cholesterol measurement 58 mg/dL High 5-40 [facility] Carbon dioxide, total [Moles /volume] in Central venous bloodOrdered By: Chavo Mendosa on 08-03-2025 CO2 [Moles/Vol] 26.8 mmol/L 21.0-32.0 [facility] Chloride assayOrdered By: Amadou Mendosa on 08-03-2025 Chloride [Moles/Vol] 102 mmol/L 98-108 [facility] Comprehensive Metabolic Prof ilon 08-03-2025 Albumin [Mass/Vol] 4.6 g/dL Normal 3.4-4.8 [facility] Comment on above: Order Comment: CC LI PID AND CMP TO JAMI GOMES Performed By: #### L 500.7000, [id number], L502.000 #### [facility] [address] [place], [place], [address] Albumin/Globulin [Mass ratio] 1.7 {ratio} Normal 0.9-2.4 [facility] Comment on above: Order Comment: CC LI PID AND CMP TO JAMI GOMES Performed By: #### L 500.7000, [id number], [id number] #### [facility] [address] [place], [address] ALK PHOS 78 U/L Normal 35-104 [facility] Comment on above: Order Comment: CC LI PID AND CMP TO JAMI GOMES Performed By: #### L 500.7000, [id number], L502.000 #### [facility] [address] [place], [address] ALT [Catalytic activity/Vol] 18 U/L Normal <=34 [facility] Comment on above: Order Comment: CC LI PID AND CMP TO JAMI GOMES Performed By: #### L 500.7000, [id number], [id number] #### [facility] [address] [place], [address] AST [Catalytic activity/Vol] 25 U/L Normal <=31 [facility] Comment on above: Order Comment: CC LI PID AND CMP TO JAMI GOMES Performed By: #### L 500.7000, [id number], L502.000 #### [facility] [address] [place], [address] Bilirubin [Mass/Vol] 0.19 mg/dL Normal 0.00-1.30 [facility] Comment on above: Order Comment: CC LI PID AND CMP TO JAMI GOMES Performed By: #### L 500.7000, [id number], L502.000 #### [facility] [address] [place], [address] BUN/CRE 23.6 RATIO High 10-20 [facility] Comment on above: Order Comment: CC LI PID AND CMP TO JAMI GOMES Performed By: #### L 500.7000, [id number], L502.000 #### [facility] [address] [place], [address] Calcium [Mass/Vol] 10.1 mg/dL Normal 7.6-11.0 [facility] Comment on above: Order Comment: CC LI PID AND CMP TO JAMI GOMES Performed By: #### L 500.7000, [id number], [id number] #### [facility] [address] [place], [address] Chloride [Moles/Vol] 102 mmol/L Normal 98-108 [facility] Comment on above: Order Comment: CC LI PID AND CMP TO JAMI GOMES Performed By: #### L 500.7000, [id number], L502.000 #### [facility] [address] [place], [address] CO2 [Moles/Vol] 26.8 mmol/L Normal 21.0-32.0 [facility] Comment on above: Order Comment: CC LI PID AND CMP TO JAMI GOMES Performed By: #### L 500.7000, [id number], L502.000 #### [facility] [address] [place], [address] Creatinine [Mass/Vol] 1.24 mg/dL High 0.70-1.20 [facility] Comment on above: Order Comment: CC LI PID AND CMP TO JAMI GOMES Performed By: #### L 500.7000, [id number], L502.000 #### [facility] [address] [place], [address] GAP 11 Normal 5-15 [facility] Comment on above: Order Comment: CC LI PID AND CMP TO JAMI GOMES Performed By: #### L 500.7000, [id number], L502.000 #### [facility] [address] [place], [address] GFR/1.73 sq M.predicted among non-blacks MDRD (S/P/Bld) [Vol rate/Area] 50 mL/min/{1.73_m2} Low >60 [facility] Comment on above: Order Comment: CC LI PID AND CMP TO JAMI GOMES Result Comment: mL/m in/1.73m2 CKD-EPI Creatinine Equation (2020) Performed By: #### L 500.7000, [id number], [id number] #### [facility] [address] [place], [address] Globulin (S) [Mass/Vol] 2.7 g/dL Normal 2.2-4.2 [facility] Comment on above: Order Comment: CC LI PID AND CMP TO JAMI GOMES Performed By: #### L 500.7000, [id number], L502.000 #### [facility] [address] [place], [address] Glucose [Mass/Vol] 138 mg/dL High 70-99 [facility] Comment on above: Order Comment: CC LI PID AND CMP TO JAMI GOMES Performed By: #### L 500.7000, [id number], L502.000 #### [facility] [address] [place], [address] Potassium [Moles/Vol] 4.2 mmol/L Normal 3.3-5.1 [facility] Comment on above: Order Comment: CC LI PID AND CMP TO JAMI GOMES Performed By: #### L 500.7000, [id number], [id number] #### [facility] [address] [place], [address] Sodium [Moles/Vol] 140 mmol/L Normal 133-145 [facility] Comment on above: Order Comment: CC LI PID AND CMP TO JAMI GOMES Performed By: #### L 500.7000, [id number], [id number] #### [facility] [address] [place], [address] T PROT 7.3 g/dL Normal 5.9-8.4 [facility] Comment on above: Order Comment: CC LI PID AND CMP TO JAMI GOMES Performed By: #### L 500.7000, L501.5280, L502.000 #### [facility] [address] [place], [address] Urea nitrogen [Mass/Vol] 29 mg/dL High 4-19 [facility] Comment on above: Order Comment: CC LI PID AND CMP TO JAMI GOMES Performed By: #### L 500.7000, L501.5280, L502.000 #### [facility] [address] [place], [address] Eosinophil percentageOrdered By: Chavo Mendosa on 08-03-2025 Eosinophils/100 WBC (Bld) 1.7 % 0-5 [facility] Erythrocyte distribution wid th ratioOrdered By: Chavo Deondre on 08-03-2025 Erythrocyte distribution width (RBC) [Ratio] 12.8 % 11.6-14.6 [facility] Erythrocyte distribution wid th standard deviationOrdered By: Chavo Mendosa on 08-03-2025 Erythrocyte distribution width (RBC) [Ratio] 43.7 fl 35.1-43.9 [facility] Glomerular filtration rate ( GFR) estimation/1.73 sq m using serum, plasma, or whole bOrdered By: Cahvo eMndosa on 08-03-2025 GFR/1.73 sq M.predicted among non-blacks MDRD (S/P/Bld) [Vol rate/Area] 50 mL/min/{1.73_m2} Low >60 [facility] Comment on above: mL/min/1.73m2 CKD-EP I Creatinine Equation (2020) Hematocrit Auto (Bld) [Volum e fraction][facility]25 Hematocrit (Bld) [Volume fraction] 43.3 % 37-47 [facility] Hemoglobin measurementOrdere d By: Chavo Mendosa 08-03-2025 Hemoglobin (Bld) [Mass/Vol] 14.2 g/dL 12.0-15.0 [facility] Immature granulocytes/100 WB C Auto (Bld)Ordered By: Chavo Mendosa 08-03-2025 Immature granulocytes/100 WBC (Bld) 0.200 % 0.0-0.9 [facility] Comment on above: IG% - Immature Granu locytes (promyelocytes, myelocytes and metamyelocytes) > 1% indicates that a LEFT SHIFT is Present. LDL calc ser/plasOrdered By: Chavo Mendosa 08-03-2025 Cholesterol in LDL [Mass/Vol] 76 mg/dL [facility] Comment on above: Aslqdhjlcs=074-503 m g/dL & Higher Kxot=378 mg/dL or greaterFriedwald Equation for LDL-C Laboratory - Chemistry and C hemistry - challengeOrdered By: Chavo Mendosa on 08-03-2025 AST [Catalytic activity/Vol] 25 U/L <32 [facility] Lipid Profileon 08-03-2025 CHOL:HDL 3.38 Normal [facility] Comment on above: Order Comment: CC HUMBERTO PID AND CMP TO JAMI GOMES Performed By: #### L 500.7000, L501.5280, L502.000 #### [facility] [address] [place], [address] Cholesterol [Mass/Vol] 190 mg/dL Normal <=200 [facility] Comment on above: Order Comment: CC LI PID AND CMP TO JAMI GOMES Result Comment: Chol esterol level, Desirable <200 mg/dL Borderline high cholesterol 200-239 mg/dL High cholesterol >=240 mg/dL Recommendations of the NCEP Adult Treatment Panel for the following risk-cutoff thresholds for the [place] population. Performed By: #### L 500.7000, L501.5280, L502.000 #### [facility] [address] [place], [address] Cholesterol in HDL [Mass/Vol] 56 mg/dL Normal [facility] Comment on above: Order Comment: CC HUMBERTO PID AND CMP TO JAMI GOMES Result Comment: Roseline onal Cholesterol Education Program (NCEP) guidelines: <40 mg/dL: Low HDL-cholesterol (major risk factor for CHD) >= 60 mg/dL: High HDL-cholesterol (negative risk factor for CHD) HDL-cholesterol is affected by a number of factors, e.g. smoking, exercise, hormones, sex and age. Performed By: #### L 500.7000, L501.5280, L502.000 #### [facility] [address] [place], [address] Cholesterol in LDL [Mass/Vol] 76 mg/dL Normal [facility] Comment on above: Order Comment: CC HUMBERTO PID AND CMP TO JAMI GOMES Result Comment: Bord mbcvxm=256-573 mg/dL Higher Bwtr=629 mg/dL or greater Friedwald Equation for LDL-C Performed By: #### L 500.7000, L501.5280, L502.000 #### [facility] [address] [place], [address] Cholesterol in VLDL [Mass/Vol] 58 mg/dL High 5-40 [facility] Comment on above: Order Comment: CC HUMBERTO PID AND CMP TO JAMI GOMES Performed By: #### L 500.7000, L501.5280, L502.000 #### [facility] [address] [place], [address] Triglyceride [Mass/Vol] 291 mg/dL High [facility] Comment on above: Order Comment: CC HUMBERTO PID AND CMP TO JAMI GOMES Result Comment: The drugs N-Acetylcysteine and Metamizole may falsely depress this assay. Normal range: <150 mg/dL Borderline High: 150-199 mg/dL High: 200-499 mg/dL Very High: >500 mg/dL Performed By: #### L 500.7000, L501.5280, L502.000 #### [facility] [address] [place], [address] MCV (mean corpuscular volume ) determinationOrdered By: Chavo Mendosa on 08-03-2025 MCV (RBC) [Entitic vol] 92.5 fL 81-99 [facility] Mean corpuscular hemoglobin (MCH) determinationOrdered By: Chavo Mendosa on 08-03-2025 MCH (RBC) [Entitic mass] 30.3 pg 27.0-32.0 [facility] Mean corpuscular hemoglobin concentration (MCHC) determinationOrdered By: Chavo Mendosa on 08-03-2025 MCHC (RBC) [Mass/Vol] 32.8 g/dL 32-36 [facility] Mean platelet volume determi nationOrdered By: Chavo Mendosa on 08-03-2025 Platelet mean volume (Bld) [Entitic vol] 10.2 fL 6.2-12.0 [facility] Monocyte percentageOrdered B y: Chavo Mendosa on 08-03-2025 Monocytes/100 WBC (Bld) 6.4 % 0-10 [facility] Neutrophil percentageOrdered By: Chavo Mendosa on 08-03-2025 Neutrophils/100 WBC (Bld) 64.7 % 47-70 [facility] Nucleated red blood cell per centageOrdered By: Chavo Mendosa on 08-03-2025 Nucleated RBC/100 WBC (Bld) [Ratio] 0 % 0-5 [facility] Platelet countOrdered By: Amadou Mendosa on 08-03-2025 Platelets (Bld) [#/Vol] 274 10*3/uL 150-450 [facility] Potassium measurement (mass/ volume)Ordered By: Chavo Mendosa on 08-03-2025 Potassium (Unsp spec) [Mass/Vol] 4.2 mmol/L 3.3-5.1 [facility] RBC Auto (Bld) [#/Vol]Ordere d By: Chavo Mendosa on 08-03-2025 RBC (Bld) [#/Vol] 4.68 10*6/uL 4.2-5.4 [facility] Screening total cholesterol/ high density lipoprotein (HDL) cholesterol ratioOrdered By: Chavo Mendosa on 08-03-2025 Cholesterol.total/Lyla sterol in HDL [Mass ratio] 3.38 {ratio} [facility] Serum creatinine measurement (mass/volume)Ordered By: Chavo Mendosa on 08-03-2025 Creatinine [Mass/Vol] 1.24 mg/dL High 0.70-1.20 [facility] Serum globulin measurementOr dered By: Chavo Mendosa 08-03-2025 Globulin (S) [Mass/Vol] 2.7 g/dL 2.2-4.2 [facility] Serum glucose measurement (m ass/volume)Ordered By: Chavo Mendosa on 08-03-2025 Glucose [Mass/Vol] 138 mg/dL High 70-99 [facility] Serum or plasma alanine mahmood otransferase (ALT) measurementOrdered By: Chavo Mendosa 08-03-2025 ALT [Catalytic activity/Vol] 18 U/L <35 [facility] Serum or plasma albumin michael urement (mass/volume)Ordered By: Chavo Mendosa on 08-03-2025 Albumin [Mass/Vol] 4.6 g/dL 3.4-4.8 [facility] Serum or plasma albumin/glob ulin mass ratioOrdered By: Chavo Mendosa on 08-03-2025 Albumin/Globulin [Mass ratio] 1.7 {ratio} 0.9-2.4 [facility] Serum or plasma alkaline jin sphatase measurementOrdered By: Chavo Mendosa 08-03-2025 ALP [Catalytic activity/Vol] 78 U/L 35-104 [facility] Serum or plasma calcium michael urement (mass/volume)Ordered By: Chavo Mendosa 08-03-2025 Calcium [Mass/Vol] 10.1 mg/dL 7.6-11.0 [facility] Serum or plasma cholesterol in HDL measurement (mass/volume)Ordered By: Chavo Mendosa on 08-03-2025 Cholesterol in HDL [Mass/Vol] 56 mg/dL >40 [facility] Comment on above: National Cholesterol Education Program (NCEP) guidelines:<40 mg/dL: Low HDL-cholesterol (major risk factor for CHD)>= 60 mg/dL: High HDL-cholesterol (negative risk factor for CHD)HDL-cholesterol is affected by a number of factors, e.g. smoking, exercise, hormones, sex and age. Serum or plasma cholesterol measurement (mass/volume)Ordered By: Chavo Mendosa on 08-03-2025 Cholesterol [Mass/Vol] 190 mg/dL <201 [facility] Comment on above: Cholesterol level, D esirable <200 mg/dLBorderline high cholesterol 200-239 mg/dLHigh cholesterol >=240 mg/dLRecommendations of the NCEP Adult Treatment Panel for the following risk-cutoff thresholds for the [place] population. Serum or plasma urea nitroge n measurement (mass/volume)Ordered By: Chavo Mendosa 08-03-2025 Urea nitrogen [Mass/Vol] 29 mg/dL High 4-19 [facility] Sodium levelOrdered By: Chavo Mendosa on 08-03-2025 Sodium [Moles/Vol] 140 mmol/L 133-145 [facility] TSH DL <= 0.005 mIU/L QnOrde red By: Chavo Mendosa on 08-03-2025 TSH Qn 0.663 uIU/mL 0.300-4.200 [facility] Thyroid Stim Hormone (TSH)on 08-03-2025 TSH 0.663 uIU/mL Normal 0.300-4.200 [facility] Comment on above: Order Comment: CC LI PID AND CMP TO JAMI GOMES Performed By: #### L 500.7000, L501.5280, L502.000 #### [facility] [address] [place], [place], [address] Total proteinOrdered By: Chavo Mendosa on 08-03-2025 Protein [Mass/Vol] 7.3 g/dL 5.9-8.4 [facility] Triglycerides measurementOrd ered By: Chavo Mendosa on 08-03-2025 Triglyceride [Mass/Vol] 291 mg/dL High <199 [facility] Comment on above: The drugs N-Acetylcy steine and Metamizole may falsely depress this assay. Normal range: <150 mg/dLBorderline High: 150-199 mg/dLHigh: 200-499 mg/dLVery High: >500 mg/dL White blood cell (WBC) count Ordered By: Chavo Mendosa on 08-03-2025 WBC (Bld) [#/Vol] 8.2 10*3/uL 4.4-11.0 [facility] ABD Limited w/ Elastographyo n 07-26-2025 ABD Limited w/ Elastography [facility] [address] [place], [place] [address] ABD Limited w/ Elastography MR#: [id number] Acct: [id number] Name: JUAN R GARCIA Rep #: [id number] : 1965 F 59 From: Anival galvez MD PCP: Dr. Chavo Mendosa MD Status: REG CLI Study: ABD Limited w/ Elastography Date of Exam: 07/12 04/04 Exam# [id number] Ordering Dr: Chavo Mendosa MD PROCEDURE: ABD LIMITED W/ ELASTOGRAPHY REASON FOR EXAM: FATTY LIVER COMPARISON: None. TECHNIQUE: Procedure Code: [id number] Modality: US Procedure: ABD LIMITED W/ ELASTOGRAPHY Right upper quadrant abdominal ultrasound. Tisha ElastQ Imaging shear wave elastography for non- invasive assessment of liver tissue stiffness. Tisha EPIQ Elite. FINDINGS: LIVER: Size: Unremarkable Length: 15 cm Echotexture: Contour: Normal Lesions: None identified Elastography: EQI Med: 9.1 kPa EQI Med Trang: 1.73 m/s IQR/Med: 11 %* GALLBLADDER: Small amount of sludge is seen in the gallbladder lumen. COMMON BILE DUCT: Normal measuring 2.4 mm . PANCREAS: Normal Mild right renal cortical thinning. There are 3 tiny nonobstructive right intrarenal calculi in the lower pole.. No right upper quadrant ascites. US/ABD Limited w/ Elastography IMPRESSION: Moderate degree of hepatic fibrosis. Small amount of sludge is seen in the gallbladder lumen. There are 3 small nonobstructive right intrarenal calculi. Reference Values: SRU <1.37 m/s (5.7kPa): No to mild fibrosis 1.37 m/s - 2.2 m/s: Moderate to severe fibrosis >2.2 m/s (15kPa): Significant fibrosis / cirrhosis METAVIR Score F2 or higher: 1.34 m/s (5.7kPa) F3 or higher: 1.55 m/s (7.3kPa) F4: 1.80 m/s (10kPa) * If the IQR/Med is >30%, the variance in the measurements is a large and the accuracy of the measurement may be in question. Reading Location: [place] [address] CC: Dr. Chavo Mendosa MD Motion Study Analyst: Signed Normal [facility] H. PYLORI STOOL AGon 025 H PYLORI STL AG Negative Normal Negative [facility] Comment on above: Result Comment: Perf ormed at: CB - [facility] [address] [id number] Blasting Miner: Ghanshyam Gaffney PhD, Phone: [phone] Performed By: #### L 3100.1950 #### [facility] [address] [place], [address] Abdomen/Pelvis WITH Contrast on 06-21-2025 Abdomen/Pelvis WITH Contrast [facility] [address] [place] [address] Abdomen/Pelvis WITH Contrast MR#: [id number] Acct: [id number] Name: JUAN R GARCIA Rep #: [id number] : 1965 F 59 From: Addy Hanson MD PCP: Dr. Chavo Mendosa MD Status: REG CLI Study: Abdomen/Pelvis WITH Contrast Date of Exam: 10/05 Exam# [id number] Ordering Dr: Chavo Mendosa MD EXAM: CT Abdomen and Pelvis With Intravenous Contrast CLINICAL INDICATION: ABDOMINAL PAIN AND DIARRHEA TECHNIQUE: Axial computed tomography images of the abdomen and pelvis with intravenous contrast. This CT exam was performed using one or more of the following dose reduction techniques: automated exposure control, adjustment of the mA and/or kV according to patient size, and/or use of iterative reconstruction technique. COMPARISON: No relevant prior studies available. FINDINGS: LUNG BASES: Unremarkable. No mass. No consolidation. ABDOMEN: LIVER: Hepatomegaly with fatty infiltration. GALLBLADDER AND BILE DUCTS: Unremarkable. No calcified stones. No ductal dilation. PANCREAS: Unremarkable. No mass. No ductal dilation. SPLEEN: Unremarkable. No splenomegaly. ADRENALS: Unremarkable. No mass. KIDNEYS AND URETERS: Unremarkable. No stones within either kidney. No hydronephrosis. STOMACH AND BOWEL: Fecal retention in the colon consistent with constipation. No obstruction. No mucosal thickening. PELVIS: APPENDIX: No findings to suggest acute appendicitis. BLADDER: Unremarkable. No mass. REPRODUCTIVE: Unremarkable as visualized. ABDOMEN and PELVIS: INTRAPERITONEAL SPACE: Unremarkable. No free air. No significant fluid collection. BONES/JOINTS: No acute fracture. No dislocation. SOFT TISSUES: Umbilical hernia containing fat. VASCULATURE: Unremarkable. No abdominal aortic aneurysm. LYMPH NODES: Unremarkable. No enlarged lymph nodes. CT/Abdomen/Pelvis WITH Contrast IMPRESSION: 1. Hepatomegaly with fatty infiltration. 2. Fecal retention in the colon consistent with constipation. 3. Umbilical hernia containing fat. 4. No obstructive uropathy. Reading Location: [facility] CC: Dr. Chavo Mendosa MD Motion Study Analyst: Signed Normal [facility] Absolute lymphocyte countOrd ered By: Chavo Mendosa on 06-21-2025 Lymphocytes Auto (Unsp spec) [#/Vol] 2.40 10*3/uL 0.83-4.51 [facility] Absolute neutrophil countOrd ered By: Chavo Mendosa on 06-21-2025 Neutrophils (Bld) [#/Vol] 5.4 10*3/uL 2.0-7.7 [facility] Amylaseon 06-21-2025 SHARMIN 57 U/L Normal 28-100 [facility] Comment on above: Performed By: #### L 500.7000, L501.5280, L502.000 #### [facility] [address] [place], [address] Anion gap in Serum or Plasma Ordered By: Chavo Mendosa on 06-21-2025 Anion gap [Moles/Vol] 12 mmol/L 5-15 [facility] Automated lymphocyte count a s percentage of total leukocytesOrdered By: Chavo Deondre on 06-21-2025 Lymphocytes/100 WBC Auto (Unsp spec) 27.9 % 19- [facility] BUN/creatinine ratioOrdered By: Chavo Deondre on 06-21-2025 Urea nitrogen/Creatinine [Mass ratio] 26.7 mg/mg High 10-20 [facility] Basophil percentageOrdered B y: Chavo Mendosa on 06-21-2025 Basophils/100 WBC (Bld) 0.6 % 0-1 [facility] Bilirubin, totalOrdered By: Chavo Deondre on 06-21-2025 Bilirubin [Mass/Vol] 0.20 mg/dL 0.00-1.30 [facility] CBC W/Diff, Automatedon 06-11 Absolute Lymph 2.40 X10 3/uL Normal 0.83-4.51 [facility] Comment on above: Performed By: #### L 500.7000, L501.5280, L502.000 #### [facility] [address] [place], [address] Absolute Neut 5.4 X10 3/uL Normal 2.0-7.7 [facility] Comment on above: Performed By: #### L 500.7000, L501.5280, L502.000 #### [facility] [address] [place], [address] Basophils/100 WBC (Bld) 0.6 % Normal 0-1 [facility] Comment on above: Performed By: #### L 500.7000, L501.5280, L502.000 #### [facility] [address] [place], [address] Eosinophils/100 WBC (Bld) 1.2 % Normal 0-5 [facility] Comment on above: Performed By: #### L 500.7000, L501.5280, L502.000 #### [facility] [address] [place], [address] Erythrocyte distribution width (RBC) [Ratio] 12.7 % Normal 11.6-14.6 [facility] Comment on above: Performed By: #### L 500.7000, L501.5280, L502.000 #### [facility] [address] [place], [address] Hematocrit (Bld) [Volume fraction] 42.6 % Normal 37-47 [facility] Comment on above: Performed By: #### L 500.7000, L501.5280, L502.000 #### [facility] [address] [place], [address] Hemoglobin (Bld) [Mass/Vol] 13.7 g/dL Normal 12.0-15.0 [facility] Comment on above: Performed By: #### L 500.7000, L501.5280, L502.000 #### [facility] [address] [place], [address] IG% 0.200 Normal 0.0-0.9 [facility] Comment on above: Result Comment: IG% - Immature Granulocytes (promyelocytes, myelocytes and metamyelocytes) > 1% indicates that a LEFT SHIFT is Present. Performed By: #### L 500.7000, L501.5280, L502.000 #### [facility] [address] [place], [address] Lymphocytes/100 WBC (Bld) 27.9 % Normal 19-41 [facility] Comment on above: Performed By: #### L 500.7000, L501.5280, L502.000 #### [facility] [address] [place], [address] MCH (RBC) [Entitic mass] 29.1 pg Normal 27.0-32.0 [facility] Comment on above: Performed By: #### L 500.7000, L501.5280, L502.000 #### [facility] [address] [place], [address] MCHC (RBC) [Mass/Vol] 32.2 g/dL Normal 32-36 [facility] Comment on above: Performed By: #### L 500.7000, L501.5280, L502.000 #### [facility] [address] [place], [address] MCV (RBC) [Entitic vol] 90.6 fL Normal 81-99 [facility] Comment on above: Performed By: #### L 500.7000, L501.5280, L502.000 #### [facility] [address] [place], [address] Monocytes/100 WBC (Bld) 7.4 % Normal 0-10 [facility] Comment on above: Performed By: #### L 500.7000, L501.5280, L502.000 #### [facility] [address] [place], [address] Neutrophils/100 WBC (Bld) 62.7 % Normal 47-70 [facility] Comment on above: Performed By: #### L 500.7000, L501.5280, L502.000 #### [facility] [address] [place], [address] Nucleated RBC (Bld) [#/Vol] 0 10*3/uL Normal 0-5 [facility] Comment on above: Performed By: #### L 500.7000, L501.5280, L502.000 #### [facility] [address] [place], [address] Platelet mean volume (Bld) [Entitic vol] 10.1 fL Normal 6.2-12.0 [facility] Comment on above: Performed By: #### L 500.7000, L501.5280, L502.000 #### [facility] [address] [place], [address] Platelets (Bld) [#/Vol] 291 10*3/uL Normal 150-450 [facility] Comment on above: Performed By: #### L 500.7000, L501.5280, L502.000 #### [facility] [address] [place], [address] RBC (Bld) [#/Vol] 4.70 10*6/uL Normal 4.2-5.4 [facility] Comment on above: Performed By: #### L 500.7000, L501.5280, L502.000 #### [facility] [address] [place], [address] RDW SD 42.4 fl Normal 35.1-43.9 [facility] Comment on above: Performed By: #### L 500.7000, L501.5280, L502.000 #### [facility] [address] [place], [address] WBC (Bld) [#/Vol] 8.6 10*3/uL Normal 4.4-11.0 [facility] Comment on above: Performed By: #### L 500.7000, L501.5280, L502.000 #### [facility] [address] [place], [address] Carbon dioxide, total [Moles /volume] in Central venous bloodOrdered By: Chavo Deondre on 06-21-2025 CO2 [Moles/Vol] 24.9 mmol/L 21.0-32.0 [facility] Chloride assayOrdered By: Amadou Mendosa on 06-21-2025 Chloride [Moles/Vol] 106 mmol/L 98-108 [facility] Comprehensive Metabolic Prof ilon 06-21-2025 Albumin [Mass/Vol] 4.6 g/dL Normal 3.4-4.8 [facility] Comment on above: Performed By: #### L 500.7000, L501.5280, L502.000 #### [facility] [address] [place], [address] Albumin/Globulin [Mass ratio] 1.8 {ratio} Normal 0.9-2.4 [facility] Comment on above: Performed By: #### L 500.7000, L501.5280, L502.000 #### [facility] [address] [place], [address] ALK PHOS 64 U/L Normal 35-104 [facility] Comment on above: Performed By: #### L 500.7000, L501.5280, L502.000 #### [facility] [address] [place], [address] ALT [Catalytic activity/Vol] 13 U/L Normal <=34 [facility] Comment on above: Performed By: #### L 500.7000, L501.5280, L502.000 #### [facility] [address] [place], [address] AST [Catalytic activity/Vol] 24 U/L Normal <=31 [facility] Comment on above: Performed By: #### L 500.7000, L501.5280, L502.000 #### [facility] [address] [place], [address] Bilirubin [Mass/Vol] 0.20 mg/dL Normal 0.00-1.30 [facility] Comment on above: Performed By: #### L 500.7000, L501.5280, L502.000 #### [facility] [address] [place], [address] BUN/CRE 26.7 RATIO High 10-20 [facility] Comment on above: Performed By: #### L 500.7000, L501.5280, L502.000 #### [facility] [address] [place], [address] Calcium [Mass/Vol] 9.9 mg/dL Normal 7.6-11.0 [facility] Comment on above: Performed By: #### L 500.7000, L501.5280, L502.000 #### [facility] [address] [place], [address] Chloride [Moles/Vol] 106 mmol/L Normal 98-108 [facility] Comment on above: Performed By: #### L 500.7000, L501.5280, L502.000 #### [facility] [address] [place], [address] CO2 [Moles/Vol] 24.9 mmol/L Normal 21.0-32.0 [facility] Comment on above: Performed By: #### L 500.7000, L501.5280, L502.000 #### [facility] [address] [place], [address] Creatinine [Mass/Vol] 1.04 mg/dL Normal 0.70-1.20 [facility] Comment on above: Performed By: #### L 500.7000, L501.5280, L502.000 #### [facility] [address] [place], [address] GAP 12 Normal 5-15 [facility] Comment on above: Performed By: #### L 500.7000, L501.5280, L502.000 #### [facility] [address] [place], [address] GFR/1.73 sq M.predicted among non-blacks MDRD (S/P/Bld) [Vol rate/Area] 61 mL/min/{1.73_m2} Normal >60 [facility] Comment on above: Result Comment: mL/m in/1.73m2 CKD-EPI Creatinine Equation (2020) Performed By: #### L 500.7000, L501.5280, L502.000 #### [facility] [address] [place], [address] Globulin (S) [Mass/Vol] 2.6 g/dL Normal 2.2-4.2 [facility] Comment on above: Performed By: #### L 500.7000, L501.5280, L502.000 #### [facility] [address] [place], [address] Glucose [Mass/Vol] 103 mg/dL High 70-99 [facility] Comment on above: Performed By: #### L 500.7000, L501.5280, L502.000 #### [facility] [address] [place], [address] Potassium [Moles/Vol] 4.0 mmol/L Normal 3.3-5.1 [facility] Comment on above: Performed By: #### L 500.7000, L501.5280, L502.000 #### [facility] [address] [place], [address] Sodium [Moles/Vol] 143 mmol/L Normal 133-145 [facility] Comment on above: Performed By: #### L 500.7000, L501.5280, L502.000 #### [facility] [address] [place], [address] T PROT 7.1 g/dL Normal 5.9-8.4 [facility] Comment on above: Performed By: #### L 500.7000, L501.5280, L502.000 #### [facility] [address] [place], [address] Urea nitrogen [Mass/Vol] 28 mg/dL High 4-19 [facility] Comment on above: Performed By: #### L 500.7000, L501.5280, L502.000 #### [facility] [address] [place], [address] Eosinophil percentageOrdered By: Chavo Mendosa on 06-21-2025 Eosinophils/100 WBC (Bld) 1.2 % 0-5 [facility] Erythrocyte distribution wid th ratioOrdered By: Chavo Mendosa on 06-21-2025 Erythrocyte distribution width (RBC) [Ratio] 12.7 % 11.6-14.6 [facility] Erythrocyte distribution wid th standard deviationOrdered By: Chavo Mendosa on 06-21-2025 Erythrocyte distribution width (RBC) [Ratio] 42.4 fl 35.1-43.9 [facility] Glomerular filtration rate ( GFR) estimation/1.73 sq m using serum, plasma, or whole bOrdered By: Chavo Mendosa on 06-21-2025 GFR/1.73 sq M.predicted among non-blacks MDRD (S/P/Bld) [Vol rate/Area] 61 mL/min/{1.73_m2} >60 [facility] Comment on above: mL/min/1.73m2 CKD-EP I Creatinine Equation (2020) Hematocrit Auto (Bld) [Volum e fraction]Ordered By: Chavo Mendosa on 06-21-2025 Hematocrit (Bld) [Volume fraction] 42.6 % 37-47 [facility] Hemoglobin measurementOrdere d By: Chavo Mendosa on 06-21-2025 Hemoglobin (Bld) [Mass/Vol] 13.7 g/dL 12.0-15.0 [facility] Immature granulocytes/100 WB C Auto (Bld)Ordered By: Chavo Mendosa 06-21-2025 Immature granulocytes/100 WBC (Bld) 0.200 % 0.0-0.9 [facility] Comment on above: IG% - Immature Granu locytes (promyelocytes, myelocytes and metamyelocytes) > 1% indicates that a LEFT SHIFT is Present. Laboratory - Chemistry and C hemistry - challengeOrdered By: Chavo Mendosa on 06-21-2025 AST [Catalytic activity/Vol] 24 U/L <32 [facility] Lipaseon 06-21-2025 Lipase [Catalytic activity/Vol] 41 U/L Normal 13-75 [facility] Comment on above: Result Comment: Magi wooten note: LIPASE revised reference range effective 23. New Lipase methodology. Expected to produce lower values than the previous assay method. NEW Reference Range: 13 - 75 U/L Performed By: #### L 500.7000, L501.5280, L502.000 #### [facility] [place], [address] Lipase measurementOrdered By : Chavo Mendosa on 06-21-2025 Lipase [Catalytic activity/Vol] 41 U/L 13-75 [facility] Comment on above: Please note:LIPASE r evised reference range effective 23. New Lipase methodology. Expected to produce lower values than the previous assay method. NEW Reference Range: 13 - 75 U/L MCV (mean corpuscular volume ) determinationOrdered By: Chavo Mendosa on 06-21-2025 MCV (RBC) [Entitic vol] 90.6 fL 81-99 [facility] Mean corpuscular hemoglobin (MCH) determinationOrdered By: Chavo Mendosa 06-21-2025 MCH (RBC) [Entitic mass] 29.1 pg 27.0-32.0 [facility] Mean corpuscular hemoglobin concentration (MCHC) determinationOrdered By: Chavo Mendosa 06-21-2025 MCHC (RBC) [Mass/Vol] 32.2 g/dL 32-36 [facility] Mean platelet volume determi nationOrdered By: Chavo Mendosa 06-21-2025 Platelet mean volume (Bld) [Entitic vol] 10.1 fL 6.2-12.0 [facility] Monocyte percentageOrdered B y: Chavo Gabrielok on 06-21-2025 Monocytes/100 WBC (Bld) 7.4 % 0-10 [facility] Neutrophil percentageOrdered By: Chavo Mendosa on 06-21-2025 Neutrophils/100 WBC (Bld) 62.7 % 47-70 [facility] Nucleated red blood cell per centageOrdered By: Chavo Mendosa on 06-21-2025 Nucleated RBC/100 WBC (Bld) [Ratio] 0 % 0-5 [facility] Platelet countOrdered By: Amadou Mendosa on 06-21-2025 Platelets (Bld) [#/Vol] 291 10*3/uL 150-450 [facility] Potassium measurement (mass/ volume)Ordered By: Chavo Mendosa on 06-21-2025 Potassium (Unsp spec) [Mass/Vol] 4.0 mmol/L 3.3-5.1 [facility] RBC Auto (Bld) [#/Vol]Ordere d By: Chavo Mendosa on 06-21-2025 RBC (Bld) [#/Vol] 4.70 10*6/uL 4.2-5.4 [facility] Serum creatinine measurement (mass/volume)Ordered By: Chavo Mendosa on 06-21-2025 Creatinine [Mass/Vol] 1.04 mg/dL 0.70-1.20 [facility] Serum globulin measurementOr dered By: Chavo Mendosa on 06-21-2025 Globulin (S) [Mass/Vol] 2.6 g/dL 2.2-4.2 [facility] Serum glucose measurement (m ass/volume)Ordered By: Chavo Mendosa on 06-21-2025 Glucose [Mass/Vol] 103 mg/dL High 70-99 [facility] Serum or plasma alanine mahmood otransferase (ALT) measurementOrdered By: Chavo Mendosa on 06-21-2025 ALT [Catalytic activity/Vol] 13 U/L <35 [facility] Serum or plasma albumin michael urement (mass/volume)Ordered By: Chavo Mendosa on 06-21-2025 Albumin [Mass/Vol] 4.6 g/dL 3.4-4.8 [facility] Serum or plasma albumin/glob ulin mass ratioOrdered By: Chavo Mendosa 06-21-2025 Albumin/Globulin [Mass ratio] 1.8 {ratio} 0.9-2.4 [facility] Serum or plasma alkaline jin sphatase measurementOrdered By: Chavo Mendosa on 06-21-2025 ALP [Catalytic activity/Vol] 64 U/L 35-104 [facility] Serum or plasma amylase michael urement (enzymatic activity/volume)Ordered By: Chavo Mendosa on 06-21-2025 Amylase [Catalytic activity/Vol] 57 U/L 28-100 [facility] Serum or plasma calcium michael urement (mass/volume)Ordered By: Chavo Mendosa on 06-21-2025 Calcium [Mass/Vol] 9.9 mg/dL 7.6-11.0 [facility] Serum or plasma urea nitroge n measurement (mass/volume)Ordered By: Chavo Mendosa 06-21-2025 Urea nitrogen [Mass/Vol] 28 mg/dL High 4-19 [facility] Sodium levelOrdered By: Chavo Mendosa 06-21-2025 Sodium [Moles/Vol] 143 mmol/L 133-145 [facility] Stool Helicobacter pylori an tigen detection by immunoassayOrdered By: Chavo Mendosa on 06-21-2025 H. pylori Ag IA Ql (Stl) Negative Negative [facility] Comment on above: Performed at: [address] Director: Ghanshyam Gaffney PhD, Phone: [phone] Total proteinOrdered By: Chavo Mendosa on 06-21-2025 Protein [Mass/Vol] 7.1 g/dL 5.9-8.4 [facility] White blood cell (WBC) count Ordered By: Chavo Mendosa on 06-21-2025 WBC (Bld) [#/Vol] 8.6 10*3/uL 4.4-11.0 [facility] Cardiovascular stress test r eportOrdered By: Anna Ragsdale on 04-01-2025 Study report [facility] [address] [place] [address] MR#: [id number] Acct: [id number] Name: JUAN R GARCIA Rep #: [id number] : 1965 59 From: Anna Ragsdale MD Primary Care: Dr. Chavo Mendosa MD Status : REG CLI Referring Dr: Anna Ragsdale MD [...] of 86%. This note was generated with [employer] software. It may contain incorrectwords, spelling, and punctuation that were not noted in checking the note beforesigning. 04/01/25 1239 Date _ Anna Ragsdale MD CC: Dr. Anna Ragsdale MD; Dr. Chavo Mendosa MD ~ Date Dictated: 04/01/251236 Date Transcribed: 04/01/251236 Motion Study Analyst: MYRA Andrews [facility] Work Phone: Echo Completeon 04-01-2025 Echo Complete [facility] [address] [place] [address] Echo Complete 04/01/25 0908 MR#: [id number] Acct: [id number] Name: JUAN R GARCIA Rep #: [id number] : 1965 59 From: Anna Ragsdale MD Attending Dr: Dr. Anna Ragsdale MD Status: REG CLI Ordering Dr: Anna Ragsdale MD Date: 04/01/25 Location: [facility] Sex: F C Admitted: Reason For Study [...] Ragsdale Performed By: Waylon Michel RCS 04/01/25 1157 Date Anna Ragsdale MD CC: Dr. Anna Ragsdale MD; Dr. Chavo Mendosa MD Date Dictated: 04/01/25 0908 Date Transcribed: 04/01/251156 Motion Study Analyst: Signed Normal [facility] Echocardiogram study reportO rdered By: Anna Ragsdale on 04-01-2025 Study report [facility] [address] [address] Echo Complete 04/01/25907 MR#: [id number] Acct: [id number] Name: JUAN R GARCIA Rep #:[id number] : 1965 59 From: Anna Ragsdale MD Attending Dr: Dr. Anna Ragsdale MD Status: REG CLI Ordering Dr: Anna Ragsdale MD Date: Location: [facility] Sex: F C Admitted: Reason For Study [...] Ragsdale Performed By: Waylon Michel RCS 04/01/25 1157 Date _ Anna Ragsdale MD CC: Dr. Anna Ragsdale MD; Dr. Chavo Mendosa MD ~ Date Dictated: 04/01/2508 Date Transcribed: 04/01/25 115 Motion Study Analyst: Signed [facility] Work Phone: Stress Reporton 04-01-2025 Stress Report [facility] [address] [place] [address] MR#: [id number] Acct: [id number] Name: NATALIIA POLLACKJUAN R Rashida Rep #: [id number] : 1965 59 From: Anna Ragsdale MD [...] of 86%. This note was generated with [employer] software. It may contain incorrect words, spelling, and punctuation that were not noted in checking the note before signing. 04/01/25 1239 Date Anna Ragsdale MD CC: Dr. Anna Ragsdale MD; Dr. Chavo Mendosa MD Date Dictated: 04/01/25 1237 Date Transcribed: 04/01/25 123 Motion Study Analyst: MYRA Signed Normal [facility] Anion gap in Serum or Plasma Ordered By: Arlette Storey on 03-25-2025 Anion gap [Moles/Vol] 11 mmol/L 03-25 [facility] BUN/creatinine ratioOrdered By: Arlette Storey on 03-25-2025 Urea nitrogen/Creatinine [Mass ratio] 25.0 mg/mg High 08-30 [facility] Calculated very low density lipoprotein (VLDL) cholesterol measurementOrdered By: Anna Ragsdale on 03-25-2025 Calculated very low density lipoprotein (VLDL) cholesterol measurement 14 mg/dL 5-40 [facility] Carbon dioxide, total [Moles /volume] in Central venous bloodOrdered By: Arlette Storey on 03-25-2025 CO2 [Moles/Vol] 24.8 mmol/L 21.0-32.0 [facility] Chloride assayOrdered By: Tomasz Storey on 03-25-2025 Chloride [Moles/Vol] 104 mmol/L 98-108 [facility] Glomerular filtration rate ( GFR) estimation/1.73 sq m using serum, plasma, or whole bOrdered By: Arlette Storey on 03-25-2025 GFR/1.73 sq M.predicted among non-blacks MDRD (S/P/Bld) [Vol rate/Area] 53 mL/min/{1.73_m2} Low >60 [facility] Comment on above: mL/min/1.73m2 CKD-EP I Creatinine Equation (2020) LDL calc ser/plasOrdered By: Anna Ragsdale on 03-25-2025 Cholesterol in LDL [Mass/Vol] 93 mg/dL [facility] Comment on above: Kbibzsdqzi=157-751 m g/dL & Higher Nayr=049 mg/dL or greater Lipid Profileon 03-25-2025 CHOL:HDL 2.73 Normal [facility] Comment on above: Performed By: #### L 500.1950 #### [facility] [address] [place], [address] Cholesterol [Mass/Vol] 168 mg/dL Normal <=200 [facility] Comment on above: Result Comment: Chol esterol level, Desirable <200 mg/dL Borderline high cholesterol 200-239 mg/dL High cholesterol >=240 mg/dL Recommendations of the NCEP Adult Treatment Panel for the following risk-cutoff thresholds for the [place] population. Performed By: #### L 500.4100 #### [facility] [address] [place], [address] Cholesterol in HDL [Mass/Vol] 62 mg/dL Normal [facility] Comment on above: Result Comment: Roseline onal Cholesterol Education Program (NCEP) guidelines: <40 mg/dL: Low HDL-cholesterol (major risk factor for CHD) >= 60 mg/dL: High HDL-cholesterol (negative risk factor for CHD) HDL-cholesterol is affected by a number of factors, e.g. smoking, exercise, hormones, sex and age. Performed By: #### L 500.4100 #### [facility] [address] [place], [address] Cholesterol in LDL [Mass/Vol] 93 mg/dL Normal [facility] Comment on above: Result Comment: Bord uyblyr=411-559 mg/dL Higher Bidg=354 mg/dL or greater Performed By: #### L 500.4100 #### [facility] [address] [place], [address] Cholesterol in VLDL [Mass/Vol] 14 mg/dL Normal 5-40 [facility] Comment on above: Performed By: #### L 500.4100 #### [facility] [address] [place], [address] Triglyceride [Mass/Vol] 68 mg/dL Normal [facility] Comment on above: Result Comment: The drugs N-Acetylcysteine and Metamizole may falsely depress this assay. Normal range: <150 mg/dL Borderline High: 150-199 mg/dL High: 200-499 mg/dL Very High: >500 mg/dL Performed By: #### L 500.4100 #### [facility] [address] [place], [address] Potassium measurement (mass/ volume)Ordered By: Arlette Storey on 03-25-2025 Potassium (Unsp spec) [Mass/Vol] 4.0 mmol/L 3.3-5.1 [facility] Renal Profileon 03-25-2025 Albumin [Mass/Vol] 4.3 g/dL Normal 3.4-4.8 [facility] Comment on above: Performed By: #### L 500.7000, L501.5280, L502.000 #### [facility] [address] [place], [address] BUN/CRE 25.0 RATIO High 10-20 [facility] Comment on above: Performed By: #### L 500.7000, L501.5280, L502.000 #### [facility] [address] [place], [address] Calcium [Mass/Vol] 9.9 mg/dL Normal 7.6-11.0 [facility] Comment on above: Performed By: #### L 500.7000, L501.5280, L502.000 #### [facility] [address] [place], [address] Chloride [Moles/Vol] 104 mmol/L Normal 98-108 [facility] Comment on above: Performed By: #### L 500.7000, L501.5280, L502.000 #### [facility] [address] [place], [address] CO2 [Moles/Vol] 24.8 mmol/L Normal 21.0-32.0 [facility] Comment on above: Performed By: #### L 500.7000, L501.5280, L502.000 #### [facility] [address] [place], [address] Creatinine [Mass/Vol] 1.17 mg/dL Normal 0.70-1.20 [facility] Comment on above: Performed By: #### L 500.7000, L501.5280, L502.000 #### [facility] [address] [place], [address] GAP 11 Normal 5-15 [facility] Comment on above: Performed By: #### L 500.7000, L501.5280, L502.000 #### [facility] [address] [place], [address] GFR/1.73 sq M.predicted among non-blacks MDRD (S/P/Bld) [Vol rate/Area] 53 mL/min/{1.73_m2} Low >60 [facility] Comment on above: Result Comment: mL/m in/1.73m2 CKD-EPI Creatinine Equation (2020) Performed By: #### L 500.7000, L501.5280, L502.000 #### [facility] [address] [place], [address] Glucose [Mass/Vol] 98 mg/dL Normal 70-99 [facility] Comment on above: Performed By: #### L 500.7000, L501.5280, L502.000 #### [facility] [address] [place], [address] Phosphate [Mass/Vol] 4.0 mg/dL Normal 2.7-4.5 [facility] Comment on above: Performed By: #### L 500.7000, L501.5280, L502.000 #### [facility] [address] [place], [address] Potassium [Moles/Vol] 4.0 mmol/L Normal 3.3-5.1 [facility] Comment on above: Performed By: #### L 500.7000, L501.5280, L502.000 #### [facility] [address] [place], [address] Sodium [Moles/Vol] 140 mmol/L Normal 133-145 [facility] Comment on above: Performed By: #### L 500.7000, L501.5280, L502.000 #### [facility] [address] [place], [address] Urea nitrogen [Mass/Vol] 29 mg/dL High 4-19 [facility] Comment on above: Performed By: #### L 500.7000, L501.5280, L502.000 #### [facility] [place], [address] Screening total cholesterol/ high density lipoprotein (HDL) cholesterol ratioOrdered By: Anna Ragsdale on 03-25-2025 Cholesterol.total/Lyla sterol in HDL [Mass ratio] 2.73 {ratio} [facility] Serum creatinine measurement (mass/volume)Ordered By: Arlette Storey on 03-25-2025 Creatinine [Mass/Vol] 1.17 mg/dL 0.70-1.20 [facility] Serum glucose measurement (m ass/volume)Ordered By: Arlette Storey on 03-25-2025 Glucose [Mass/Vol] 98 mg/dL 70-99 [facility] Serum or plasma albumin michael urement (mass/volume)Ordered By: Arlette Storey on 03-25-2025 Albumin [Mass/Vol] 4.3 g/dL 3.4-4.8 [facility] Serum or plasma calcium michael urement (mass/volume)Ordered By: Arlette Storey on 03-25-2025 Calcium [Mass/Vol] 9.9 mg/dL 7.6-11.0 [facility] Serum or plasma cholesterol in HDL measurement (mass/volume)Ordered By: Anna Ragsdale on 03-25-2025 Cholesterol in HDL [Mass/Vol] 62 mg/dL >40 [facility] Comment on above: National Cholesterol Education Program (NCEP) guidelines:<40 mg/dL: Low HDL-cholesterol (major risk factor for CHD)>= 60 mg/dL: High HDL-cholesterol (negative risk factor for CHD)HDL-cholesterol is affected by a number of factors, e.g. smoking, exercise, hormones, sex and age. Serum or plasma cholesterol measurement (mass/volume)Ordered By: Anna Ragsdale on 03-25-2025 Cholesterol [Mass/Vol] 168 mg/dL <201 [facility] Comment on above: Cholesterol level, D esirable <200 mg/dLBorderline high cholesterol 200-239 mg/dLHigh cholesterol >=240 mg/dLRecommendations of the NCEP Adult Treatment Panel for the following risk-cutoff thresholds for the [place] population. Serum or plasma urea nitroge n measurement (mass/volume)Ordered By: Arlette Storey on 03-25-2025 Urea nitrogen [Mass/Vol] 29 mg/dL High 4-19 [facility] Sodium levelOrdered By: Boyd Storey on 03-25-2025 Sodium [Moles/Vol] 140 mmol/L 133-145 [facility] Triglycerides measurementOrd ered By: Anna Ragsdale on 03-25-2025 Triglyceride [Mass/Vol] 68 mg/dL <199 [facility] Comment on above: The drugs N-Acetylcy steine and Metamizole may falsely depress this assay. Normal range: <150 mg/dLBorderline High: 150-199 mg/dLHigh: 200-499 mg/dLVery High: >500 mg/dL 12 Lead EKG performed by [facility] on 03-09-2025 12 Lead EKG performed by [facility] [address] [place] [address] 12 Lead EKG performed by [facility] 03/09/251650 MR#: [id number] Acct: [id number] Name: JUAN R GARCIA Rep #: [id number] : 1965 59 From: Anna Ragsdale MD Attending Dr: Dr. Anna Ragsdale MD Status: DEP AMB Ordering Dr: Anna Ragsdale MD Date: 03/09/25 [place] [facility] [place] F C Admitted: [facility]/12 Lead EKG performed by [facility] ECG Report Interpretation -----Sinus Bradycardia - Nonspecific T-abnormality. ABNORMAL Electronically signed on 04/07/2025 at 13:[address] Anna Ragsdale [employer] Version 8610 04/07/25 1343 Date Anna Ragsdale MD CC: Dr. Chavo Mendosa MD Date Dictated: 03/09/251650 Date Transcribed: 04/29/25 1651 Motion Study Analyst: MYRA Signed Normal [facility] Cardiology Visit Reporton Cardiology Visit Report [facility] [address] [place], [place] [address] OFFICE VISIT Date of Service: 03/09/25 MR#: [id number] Acct: [id number] Name: JUAN R MCCARTNEY Rep #: [id number] : 1965 Provider: Dr. 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 Normal [facility] Low Dose CT Lung Screeningon 02-12-[address] Lung Screening [facility] Services [address] [place] [address] Lung Screening MR#: [id number] Acct: [id number] Name: JUAN R MCCARTNEY Rep #: [id number] : 1965 F 59 From: Kirit Hylton DO PCP: Dr. Chavo Mendosa MD Status: REG CLI Study: Low Dose CT Lung Screening Date of Exam: 02/12 Exam# [id number] Ordering Dr: Chavo Mendosa MD PROCEDURE: LOW [...] use of iterative reconstruction technique). REFERENCE LINK: [employer] Lung-RADS RADIATION DOSE SUMMARY: CTDlvol: 2.01 mGy [...] pulmonary nodules. Coronary artery calcification (CAC) is [id number] left main coronary artery. Lung-RADS Category: 3 consider six-month follow-up low-dose CT lung Other Significant Findings: None. Reading [facility] CC: Dr. Chavo Mendosa MD Motion Study Analyst: Signed Normal [facility] Absolute lymphocyte countOrd ered By: Chavo Mendosa on 01-27-2025 Lymphocytes Auto (Unsp spec) [#/Vol] 2.30 10*3/uL 0.83-4.51 [facility] Absolute neutrophil countOrd ered By: Chavo Mendosa on 01-27-2025 Neutrophils (Bld) [#/Vol] 5.0 10*3/uL 2.0-7.7 [facility] Anion gap in Serum or Plasma Ordered By: Chavo Mendosa on 01-27-2025 Anion gap [Moles/Vol] 11 mmol/L 5-15 [facility] Automated lymphocyte count a s percentage of total leukocytesOrdered By: Chavo Mendosa on 01-27-2025 Lymphocytes/100 WBC Auto (Unsp spec) 28.4 % 19-41 [facility] BUN/creatinine ratioOrdered By: Chavo Mendosa on 01-27-2025 Urea nitrogen/Creatinine [Mass ratio] 21.0 mg/mg High 10-20 [facility] Basophil percentageOrdered B y: Chavo Mendosa on 01-27-2025 Basophils/100 WBC (Bld) 0.7 % 0-1 [facility] Bilirubin, totalOrdered By: Chavo Mendosa on 01-27-2025 Bilirubin [Mass/Vol] 0.16 mg/dL 0.00-1.30 [facility] CBC W/Diff, Automatedon - Absolute Lymph 2.30 X10 3/uL Normal 0.83-4.51 [facility] Comment on above: Performed By: #### L 500.7000, L501.5280, L502.000 #### [facility] [address] [place], [address] Absolute Neut 5.0 X10 3/uL Normal 2.0-7.7 [facility] Comment on above: Performed By: #### L 500.7000, L501.5280, L502.000 #### [facility] [address] [place], [address] Basophils/100 WBC (Bld) 0.7 % Normal 0-1 [facility] Comment on above: Performed By: #### L 500.7000, L501.5280, L502.000 #### [facility] [address] [place], [address] Eosinophils/100 WBC (Bld) 1.4 % Normal 0-5 [facility] Comment on above: Performed By: #### L 500.7000, L501.5280, L502.000 #### [facility] [address] [place], [address] Erythrocyte distribution width (RBC) [Ratio] 12.2 % Normal 11.6-14.6 [facility] Comment on above: Performed By: #### L 500.7000, L501.5280, L502.000 #### [facility] [address] [place], [address] Hematocrit (Bld) [Volume fraction] 42.0 % Normal 37-47 [facility] [facility] Comment on above: Performed By: #### L 500.7000, L501.5280, L502.000 #### [facility] [address] [place], [address] Hemoglobin (Bld) [Mass/Vol] 13.7 g/dL Normal 12.0-15.0 [facility] Comment on above: Performed By: #### L 500.7000, L501.5280, L502.000 #### [facility] [address] [place], [address] IG% 0.400 Normal 0.0-0.9 [facility] Comment on above: Result Comment: IG% - Immature Granulocytes (promyelocytes, myelocytes and metamyelocytes) > 1% indicates that a LEFT SHIFT is Present. Performed By: #### L 500.7000, L501.5280, L502.000 #### [facility] [address] [place], [address] Lymphocytes/100 WBC (Bld) 28.4 % Normal 19-41 [facility] Comment on above: Performed By: #### L 500.7000, L501.5280, L502.000 #### [facility] [address] [place], [address] MCH (RBC) [Entitic mass] 29.7 pg Normal 27.0-32.0 [facility] Comment on above: Performed By: #### L 500.7000, L501.5280, L502.000 #### [facility] [address] [place], [address] MCHC (RBC) [Mass/Vol] 32.6 g/dL Normal 32-36 [facility] Comment on above: Performed By: #### L 500.7000, L501.5280, L502.000 #### [facility] [address] [place], [address] MCV (RBC) [Entitic vol] 91.1 fL Normal 81-99 [facility] Comment on above: Performed By: #### L 500.7000, L501.5280, L502.000 #### [facility] [address] [place], [address] Monocytes/100 WBC (Bld) 7.5 % Normal 0-10 [facility] Comment on above: Performed By: #### L 500.7000, L501.5280, L502.000 #### [facility] [address] [place], [address] Neutrophils/100 WBC (Bld) 61.6 % Normal 47-70 [facility] Comment on above: Performed By: #### L 500.7000, L501.5280, L502.000 #### [facility] [address] [place], [address] Nucleated RBC (Bld) [#/Vol] 0 10*3/uL Normal 0-5 [facility] Comment on above: Performed By: #### L 500.7000, L501.5280, L502.000 #### [facility] [address] [place], [address] Platelet mean volume (Bld) [Entitic vol] 9.9 fL Normal 6.2-12.0 [facility] Comment on above: Performed By: #### L 500.7000, L501.5280, L502.000 #### [facility] [address] [place], [address] Platelets (Bld) [#/Vol] 278 10*3/uL Normal 150-450 [facility] Comment on above: Performed By: #### L 500.7000, L501.5280, L502.000 #### [facility] [address] [place], [address] RBC (Bld) [#/Vol] 4.61 10*6/uL Normal 4.2-5.4 [facility] Comment on above: Performed By: #### L 500.7000, L501.5280, L502.000 #### [facility] [address] [place], [address] RDW SD 40.4 fl Normal 35.1-43.9 [facility] Comment on above: Performed By: #### L 500.7000, L501.5280, L502.000 #### [facility] [address] [place], [address] WBC (Bld) [#/Vol] 8.1 10*3/uL Normal 4.4-11.0 [facility] Comment on above: Performed By: #### L 500.7000, L501.5280, L502.000 #### [facility] [address] [place], [address] Carbon dioxide, total [Moles /volume] in Central venous bloodOrdered By: Chavo Mendosa on 01-27-2025 CO2 [Moles/Vol] 28.1 mmol/L 21.0-32.0 [facility] Chloride assayOrdered By: Amadou Mendosa on 01-27-2025 Chloride [Moles/Vol] 100 mmol/L 98-108 [facility] Comprehensive Metabolic Prof ilon 01-27-2025 Albumin [Mass/Vol] 4.6 g/dL Normal 3.4-4.8 [facility] Comment on above: Performed By: #### L 500.7000, L501.5280, L502.000 #### [facility] [address] [place], [address] Albumin/Globulin [Mass ratio] 1.6 {ratio} Normal 0.9-2.4 [facility] Comment on above: Performed By: #### L 500.7000, L501.5280, L502.000 #### [facility] [address] [place], [address] ALK PHOS 68 U/L Normal 35-104 [facility] Comment on above: Performed By: #### L 500.7000, L501.5280, L502.000 #### [facility] [address] [place], [address] ALT [Catalytic activity/Vol] 16 U/L Normal <=34 [facility] Comment on above: Performed By: #### L 500.7000, L501.5280, L502.000 #### [facility] [address] [place], [address] AST [Catalytic activity/Vol] 23 U/L Normal <=31 [facility] Comment on above: Performed By: #### L 500.7000, L501.5280, L502.000 #### [facility] [address] [place], [address] Bilirubin [Mass/Vol] 0.16 mg/dL Normal 0.00-1.30 [facility] Comment on above: Performed By: #### L 500.7000, L501.5280, L502.000 #### [facility] [address] [place], [address] BUN/CRE 21.0 RATIO High 10-20 [facility] Comment on above: Performed By: #### L 500.7000, L501.5280, L502.000 #### [facility] [address] [place], [address] Calcium [Mass/Vol] 10.0 mg/dL Normal 7.6-11.0 [facility] Comment on above: Performed By: #### L 500.7000, L501.5280, L502.000 #### [facility] [address] [place], [address] Chloride [Moles/Vol] 100 mmol/L Normal 98-108 [facility] Comment on above: Performed By: #### L 500.7000, L501.5280, L502.000 #### [facility] [address] [place], [address] CO2 [Moles/Vol] 28.1 mmol/L Normal 21.0-32.0 [facility] Comment on above: Performed By: #### L 500.7000, L501.5280, L502.000 #### [facility] [address] [place], [address] Creatinine [Mass/Vol] 1.33 mg/dL High 0.70-1.20 [facility] Comment on above: Performed By: #### L 500.7000, L501.5280, L502.000 #### [facility] [address] [place], [address] GAP 11 Normal 5-15 [facility] Comment on above: Performed By: #### L 500.7000, L501.5280, L502.000 #### [facility] [address] [place], [address] GFR/1.73 sq M.predicted among non-blacks MDRD (S/P/Bld) [Vol rate/Area] 46 mL/min/{1.73_m2} Low >60 [facility] Comment on above: Result Comment: mL/m in/1.73m2 CKD-EPI Creatinine Equation (2020) Performed By: #### L 500.7000, L501.5280, L502.000 #### [facility] [address] [place], [address] Globulin (S) [Mass/Vol] 2.9 g/dL Normal 2.2-4.2 [facility] Comment on above: Performed By: #### L 500.7000, L501.5280, L502.000 #### [facility] [address] [place], [address] Glucose [Mass/Vol] 117 mg/dL High 70-99 [facility] Comment on above: Performed By: #### L 500.7000, L501.5280, L502.000 #### [facility] [address] [place], [address] Potassium [Moles/Vol] 4.5 mmol/L Normal 3.3-5.1 [facility] Comment on above: Result Comment: Hemo lysis present, Results??could be affected. ?? Performed By: #### L 500.7000, L501.5280, L502.000 #### [facility] [address] [place], [address] Sodium [Moles/Vol] 139 mmol/L Normal 133-145 [facility] Comment on above: Performed By: #### L 500.7000, L501.5280, L502.000 #### [facility] [address] [place], [address] T PROT 7.4 g/dL Normal 5.9-8.4 [facility] Comment on above: Performed By: #### L 500.7000, L501.5280, L502.000 #### [facility] [address] [place], [address] Urea nitrogen [Mass/Vol] 28 mg/dL High 4-19 [facility] Comment on above: Performed By: #### L 500.7000, L501.5280, L502.000 #### [facility] [address] [place], [address] Eosinophil percentageOrdered By: Chavo Mendosa on 01-27-2025 Eosinophils/100 WBC (Bld) 1.4 % 0-5 [facility] Erythrocyte distribution wid th ratioOrdered By: [facility] Erythrocyte distribution width (RBC) [Ratio] 12.2 % 11.6-14.6 [facility] Erythrocyte distribution wid th standard deviationOrdered By: Chavo Deondre on 01-27-2025 Erythrocyte distribution width (RBC) [Entitic vol] 40.4 fL 35.1-43.9 [facility] Erythrocyte distribution width (RBC) [Ratio] 40.4 fl 35.1-43.9 [facility] GFR/1.73 sq M.predicted david g non-blacks MDRD (S/P/Bld) [Vol rate/Area]Ordered By: Chavo Mendosa on 01-27-2025 Estimated GFR (MDRD) Non-Af Amer 46 Low >60 [facility] Comment on above: mL/min/1.73m2 CKD-EP I Creatinine Equation (2020) Glomerular filtration rate ( GFR) estimation/1.73 sq m using serum, plasma, or whole bOrdered By: Chavo Mendosa on 01-27-2025 GFR/1.73 sq M.predicted among non-blacks MDRD (S/P/Bld) [Vol rate/Area] 46 mL/min/{1.73_m2} Low >60 [facility] Comment on above: mL/min/1.73m2 CKD-EP I Creatinine Equation (2020) Hematocrit Auto (Bld) [Volum e fraction]Ordered By: Chavo Mendosa on 01-27-2025 Hematocrit (Bld) [Volume fraction] 42.0 % 37-47 [facility] Hemoglobin measurementOrdere d By: Chavo Mendosa on 01-27-2025 Hemoglobin (Bld) [Mass/Vol] 13.7 g/dL 12.0-15.0 [facility] Hepatitis C antibodyOrdered By: Chavo Mendosa 01-27-2025 Hepatitis C Antibody Non-Reactive Nonreactive [facility] Comment on above: Reactive: Presumptiv e evidence of antibodies to HCV. Follow CDC recommendations for supplemental testing.Non-Reactive: Antibodies to HCV were not detected; does not exclude the possibility of exposure to HCVReactive Results are presumptive evidence of antibodies to HCV. Follow CDC recommendations for supplemental testing.Order confirmation testing: HCV Quant by PCR testing - HCVPCR #[id number] Non Reactive: < 0.8 Equivocal: >/= 0.8 to < 1.0 Reactive: >/= 1.0The CDC requires that a reactive/equivocal HCV antibody result be sent out for confirmation. HCV Quant by PCR testing. Immature granulocytes/100 WB C Auto (Bld)Ordered By: Chavo Mendosa on 01-27-2025 Immature granulocytes/100 WBC (Bld) 0.400 % 0.0-0.9 [facility] Comment on above: IG% - Immature Granu locytes (promyelocytes, myelocytes and metamyelocytes) > 1% indicates that a LEFT SHIFT is Present. L3890.6301on 01-27-2025 Hepatitis C Ab Non-Reactive Normal Nonreactive [facility] Comment on above: Result Comment: Reac tive: Presumptive evidence of antibodies to HCV. Follow CDC recommendations for supplemental testing. Non-Reactive: Antibodies to HCV were not detected; does not exclude the possibility of exposure to HCV Reactive Results are presumptive evidence of antibodies to HCV. Follow CDC recommendations for supplemental testing. Order confirmation testing: HCV Quant by PCR testing - HCVPCR #[id number] Non Reactive: < 0.8 Equivocal: >/= 0.8 to < 1.0 Reactive: >/= 1.0 The [facility] requires that a reactive/equivocal HCV antibody result be sent out for confirmation. HCV Quant by PCR testing. Performed By: #### L 500.7000, L501.5280, L502.000 #### [facility] [address] [place], [place], [address] L506.1001on 01-27-2025 Vitamin D 25-OH 39.7 ng/mL Normal 30-100 [facility] Comment on above: Result Comment: Katie min D Status Deficiency: <20 ng/mL (50nmol/L) Insufficiency: 20-30 ng/mL (50-75 nmol/L) Sufficiency: 30-100 ng/mL (75-250 nmol/L) Toxicity: >100 ng/mL (>250 nmol/L) Performed By: #### L 500.7000, L501.5280, L502.000 #### [facility] [address] [place], [address] Laboratory - Chemistry and C hemistry - challengeOrdered By: Chavo Mendosa on 01-27-2025 AST [Catalytic activity/Vol] 23 U/L <32 [facility] Lymphocytes Auto (Unsp spec) [#/Vol]Ordered By: Chavo Mendosa on 01-27-2025 Lymphocytes (Bld) [#/Vol] 2.30 10*3/uL 0.83-4.51 [facility] Lymphocytes/100 WBC Auto (Un sp spec)Ordered By: Chavo Deondre on 01-27-2025 Lymphocytes/100 WBC (Bld) 28.4 % 19-41 [facility] MCV (mean corpuscular volume ) determinationOrdered By: Chavo Mendosa on 01-27-2025 MCV (RBC) [Entitic vol] 91.1 fL 81-99 [facility] Mean corpuscular hemoglobin (MCH) determinationOrdered By: Chavo Mendosa on 01-27-2025 MCH (RBC) [Entitic mass] 29.7 pg 27.0-32.0 [facility] Mean corpuscular hemoglobin concentration (MCHC) determinationOrdered By: Chavo Mendosa on 01-27-2025 MCHC (RBC) [Mass/Vol] 32.6 g/dL 32-36 [facility] Mean platelet volume determi nationOrdered By: Chavo Mendosa on 01-27-2025 Platelet mean volume (Bld) [Entitic vol] 9.9 fL 6.2-12.0 [facility] Monocyte percentageOrdered B y: Chavo Mendosa on 01-27-2025 Monocytes/100 WBC (Bld) 7.5 % 0-10 [facility] Neutrophil percentageOrdered By: Chavo Mendosa on 01-27-2025 Neutrophils/100 WBC (Bld) 61.6 % 47-70 [facility] Nucleated red blood cell per centageOrdered By: Chavo Mendosa on 01-27-2025 Nucleated RBC/100 WBC (Bld) [Ratio] 0 % 0-5 [facility] Platelet countOrdered By: Amadou Mendosa on 01-27-2025 Platelets (Bld) [#/Vol] 278 10*3/uL 150-450 [facility] Potassium (Unsp spec) [Mass/ Vol]Ordered By: Chavo Mendosa on 01-27-2025 Potassium [Moles/Vol] 4.5 mmol/L 3.3-5.1 [facility] Comment on above: Hemolysis present, R esults could be affected. Potassium measurement (mass/ volume)Ordered By: Chavo Mendosa on 01-27-2025 Potassium (Unsp spec) [Mass/Vol] 4.5 mmol/L 3.3-5.1 [facility] Comment on above: Hemolysis present, R esults could be affected. RBC Auto (Bld) [#/Vol]Ordere d By: Chavo Mendosa on 01-27-2025 RBC (Bld) [#/Vol] 4.61 10*6/uL 4.2-5.4 [facility] Serum creatinine measurement (mass/volume)Ordered By: Chavo Mendosa on 01-27-2025 Creatinine [Mass/Vol] 1.33 mg/dL High 0.70-1.20 [facility] Serum globulin measurementOr dered By: Chavo Mendosa on 01-27-2025 Globulin (S) [Mass/Vol] 2.9 g/dL 2.2-4.2 [facility] Serum glucose measurement (m ass/volume)Ordered By: Chavo Mendosa on 01-27-2025 Glucose [Mass/Vol] 117 mg/dL High 70-99 [facility] Serum or plasma alanine mahmood otransferase (ALT) measurementOrdered By: Chavo Mendosa on 01-27-2025 ALT [Catalytic activity/Vol] 16 U/L <35 [facility] Serum or plasma albumin michael urement (mass/volume)Ordered By: Chavo Mendosa on 01-27-2025 Albumin [Mass/Vol] 4.6 g/dL 3.4-4.8 [facility] Serum or plasma albumin/glob ulin mass ratioOrdered By: Chavo Mendosa 01-27-2025 Albumin/Globulin [Mass ratio] 1.6 {ratio} 0.9-2.4 [facility] Serum or plasma alkaline jin sphatase measurementOrdered By: Chavo Mendosa 01-27-2025 ALP [Catalytic activity/Vol] 68 U/L 35-104 [facility] Serum or plasma calcium michael urement (mass/volume)Ordered By: Chavo Mendosa on 01-27-2025 Calcium [Mass/Vol] 10.0 mg/dL 7.6-11.0 [facility] Serum or plasma urea nitroge n measurement (mass/volume)Ordered By: Chavo Mendosa 01-27-2025 Urea nitrogen [Mass/Vol] 28 mg/dL High 4-19 [facility] Sodium levelOrdered By: Chavo Mendosa 01-27-2025 Sodium [Moles/Vol] 139 mmol/L 133-145 [facility] TSH DL <= 0.005 mIU/L QnOrde red By: Chavo Mendosa on 01-27-2025 Thyroid Stimulating Hormone (TSH) 0.651 uIU/mL 0.300-4.200 [facility] TSH Qn 0.651 uIU/mL 0.300-4.200 [facility] Thyroid Stim Hormone (TSH)on 01-27-2025 TSH 0.651 uIU/mL Normal 0.300-4.200 [facility] Comment on above: Performed By: #### L 500.7000, L501.5280, L502.000 #### [facility] [address] [place], [address] Total proteinOrdered By: Chavo Mendosa on 01-27-2025 Protein [Mass/Vol] 7.4 g/dL 5.9-8.4 [facility] Vitamin D, 25-hydroxyOrdered By: Chavo Mendosa on 01-27-2025 Vitamin D 25-Hydroxy 39.7 ng/mL 30-100 [facility] Comment on above: Vitamin D StatusDefi ciency: <20 ng/mL (50nmol/L)Insufficiency: 20-30 ng/mL (50-75 nmol/L)Sufficiency: 30-100 ng/mL (75-250 nmol/L)Toxicity: >100 ng/mL (>250 nmol/L) White blood cell (WBC) count Ordered By: Chavo Mendosa on 01-27-2025 WBC (Bld) [#/Vol] 8.1 10*3/uL 4.4-11.0 [facility] L3410.9998on 01-19-2025 [facility] Misc. COMMENT Normal . [facility] Comment on above: Order Comment: [id number] 524HR CITRIC ACID URINE Result Comment: Test Ordered: 252692 Citric Acid (Citrate), Urine Test(s) 625924-Twimnx Acid, Urine was developed and its performance characteristics determined by [facility]. It has not been cleared or approved by the Food and Drug Administration. Citric Acid, Urine 516 mg/L BN Reference Range: Undefined Citric Acid, U, 24hr 826 mg/24 hr BN Reference Range: 320-1240 Performed at: - [facility] [id number] [employer]: Sobia Griggs MD, Phone: [phone] Performed at: [facility] [id number] [employer]: Ghanshyam Gaffney PhD, Phone: [phone] Performed By: #### L 500.7000, L501.5280, L502.000 #### [facility] [address] [place], [address] 24 HR Urine Creatinineon UR.CREAT/24hr Normal 0.70-1.90 [facility] Comment on above: Result Comment: DONE ALREADY Performed By: #### L 500.7000, L501.5280, L502.000 #### [facility] [address] [place], [address] URINE CREAT Normal NO RANGE EST. [facility] Comment on above: Result Comment: DONE ALREADY Performed By: #### L 500.7000, L501.5280, L502.000 #### [facility] [address] [place], [address] Calcium, Urine 24HRon 2024 24HR UR Calcium Normal 42.0-353.0 [facility] Comment on above: Result Comment: DONE ALREADY Performed By: #### L 500.7000, L501.5280, L502.000 #### [facility] [address] [place], [address] Calcium UR pH Normal [facility] Comment on above: Result Comment: DONE ALREADY Performed By: #### L 500.7000, L501.5280, L502.000 #### [facility] [address] [place], [address] UR Collect Time Normal 24.0 [facility] Comment on above: Result Comment: DONE ALREADY Performed By: #### L 500.7000, L501.5280, L502.000 #### [facility] [address] [place], [address] UR Total Volume Normal [facility] Comment on above: Result Comment: DONE ALREADY Performed By: #### L 500.7000, L501.5280, L502.000 #### [facility] [address] [place], [address] Urine Calcium Normal Not Estab. [facility] Comment on above: Result Comment: DONE ALREADY Performed By: #### L 500.7000, L501.5280, L502.000 #### [facility] [address] [place], [address] Electrolytes, 24 HR URon UR CL Normal Not Establ. [facility] Comment on above: Result Comment: DONE ALREADY Performed By: #### L 500.7000, L501.5280, L502.000 #### [facility] [address] [place], [address] UR CL/24 hr Normal 110-250 [facility] Comment on above: Result Comment: DONE ALREADY Performed By: #### L 500.7000, L501.5280, L502.000 #### [facility] [address] [place], [address] UR K Normal Not Establ. [facility] Comment on above: Result Comment: DONE ALREADY Performed By: #### L 500.7000, L501.5280, L502.000 #### [facility] [address] [place], [address] UR K/24 HR Normal 25-125 [facility] Comment on above: Result Comment: DONE ALREADY Performed By: #### L 500.7000, L501.5280, L502.000 #### [facility] [address] [place], [address] UR NA Normal Not Establ. [facility] Comment on above: Result Comment: DONE ALREADY Performed By: #### L 500.7000, L501.5280, L502.000 #### [facility] [address] [place], [address] UR NA/24HR Normal 40-220 [facility] Comment on above: Result Comment: DONE ALREADY Performed By: #### L 500.7000, L501.5280, L502.000 #### [facility] [address] [place], [address] 24 HR Urine Creatinineon UR COLLECT TIME 24.0 HOURS Normal 24.0 [facility] Comment on above: Performed By: #### L 501.5280, L502.000 #### [facility] [address] [place], [address] UR TOTAL VOLUME 2.30 Normal [facility] Comment on above: Performed By: #### L 501.5280, L502.000 #### [facility] [address] [place], [address] UR.CREAT/24hr 1.45 g/24 HR Normal 0.70-1.90 [facility] Comment on above: Performed By: #### L 501.5280, L502.000 #### [facility] [address] [place], [address] URINE CREAT 63.10 mg/dL Normal NO RANGE EST. [facility] Comment on above: Performed By: #### L 501.5280, L502.000 #### [facility] [address] [place], [address] 24 hour urine calcium measur ement (mass/time)Ordered By: Arlette Storey on 01-04-2025 Calcium (24H U) [Mass/Time] 253.0 mg/24 HR 42.0-353.0 [facility] 24 hour urine creatinine brooke surement (mass/time)Ordered By: Arlette Storey on 01-04-2025 Creatinine (24H U) [Mass/Time] 1.45 g/24 HR 0.70-1.90 [facility] 24 hour urine sodium measure ment (mass/time)Ordered By: Arlette Storey on 01-04-2025 Sodium (24H U) [Mass/Time] 214 mmol/24h 40-220 [facility] 24 hour urine specimen volum e measurementOrdered By: Areltte Storey on 01-04-2025 Specimen volume (24H U) 2.3 L [facility] Calcium (24H U) [Mass/Time]O rdered By: Arlette Storey on 01-04-2025 Urine Calcium 24 Hour 253.0 mg/24 HR 42.0-353.0 [facility] Calcium (U) [Mass/Vol]Ordere d By: Arlette Sotrey on 01-04-2025 Urine Calcium 11.0 mg/dL Not Estab. [facility] Calcium, Urine 24HRon 2024 24HR UR Calcium 253.0 mg/24 HR Normal 42.0-353.0 [facility] Comment on above: Performed By: #### L 500.7000, L501.5280, L502.000 #### [facility] [address] [place], [address] Calcium UR pH 1 Normal [facility] Comment on above: Performed By: #### L 500.7000, L501.5280, L502.000 #### [facility] [address] [place], [address] UR Collect Time 24.0 HR Normal 24.0-24.0 [facility] Comment on above: Performed By: #### L 500.7000, L501.5280, L502.000 #### [facility] [address] [place], [address] Urine Calcium 11.0 mg/dL Normal Not Estab. [facility] Comment on above: Performed By: #### L 500.7000, L501.5280, L502.000 #### [facility] [address] [place], [address] Chloride (U) [Moles/Vol]Orde red By: Arlette Storey on 01-04-2025 Urine Chloride 98 mmol/L Not Establ. [facility] Chloride ur 24hrOrdered By: Arlette Storey on 01-04-2025 Urine Chloride 24 Hour 226 mmol/24h 110-250 [facility] Collection duration (U)Order ed By: Arlette Storey on 01-04-2025 Urine Collection Duration 24.0 HOURS 24.0-24.0 [facility] Hospital Collection time (Sharonda) [Date/ time]Ordered By: Arlette Storey on 01-04-2025 Urine Collection Time 24.0 HR 24.0-24.0 [facility] Creatinine (24H U) [Mass/Winston e]Ordered By: Arlette Storey on 01-04-2025 Urine Creatinine 24 Hour 1.45 g/24 HR 0.70-1.90 [facility] Electrolytes, 24 HR URon Chloride [Moles/Vol] 98 mmol/L Normal Not Establ. [facility] Comment on above: Performed By: #### L 501.5280, L502.000 #### [facility] [address] [place], [address] Potassium [Moles/Vol] 37.0 mmol/L Normal Not Establ. [facility] Comment on above: Performed By: #### L 501.5280, L502.000 #### [facility] [address] [place], [address] UR CL/24 hr 226 mmol/24h Normal 110-250 [facility] Comment on above: Performed By: #### L 501.5280, L502.000 #### [facility] [address] [place], [address] UR K/24 HR 86.0 mmol/24h Normal 25-125 [facility] Comment on above: Performed By: #### L 501.5280, L502.000 #### [facility] [address] [place], [address] UR NA 93 mmol/L Normal Not Establ. [facility] Comment on above: Performed By: #### L 501.5280, L502.000 #### [facility] [address] [place], [place], [address] UR NA/24HR 214 mmol/24h Normal 40-220 [facility] Comment on above: Performed By: #### L 501.5280, L502.000 #### [facility] [address] [place], [address] UR TOTAL VOLUME 2300 mL Normal [facility] Comment on above: Performed By: #### L 501.5280, L502.000 #### [facility] [address] [place], [place], [address] Performed By: #### L 500.7000, L501.5280, L502.000 #### [facility] [address] [place], [address] Laboratory - Chemistry and C hemistry - challengeOrdered By: Arlette Storey on 01-04-2025 pH (U) 1 [pH] [facility] - Specimen inform ationOrdered By: Arlette Storey on 01-04-2025 Collection duration (U) 24.0 HOURS 24.0-24.0 [facility] Collection time (Sharonda) [Date/time] 24.0 HR 24.0-24.0 [facility] Potassium urine 24hrOrdered By: Arlette Storey on 01-04-2025 Urine Potassium 24 Hour 86.0 mmol/24h 25-125 [facility] Sodium (24H U) [Mass/Time]Or dered By: Arlette Storey on 01-04-2025 Urine Sodium 24 Hour 214 mmol/24h 40-220 [facility] Sodium urOrdered By: Dot Storey on 01-04-2025 Sodium (U) [Moles/Vol] 93 mmol/L Not Establ. [facility] Specimen volume (24H U)Order ed By: Arlette Storey on 01-04-2025 Urine Total Volume 2300 ml [facility] Urine calcium measurement (m ass/volume)Ordered By: Arlette Storey on 01-04-2025 Calcium (U) [Mass/Vol] 11.0 mg/dL Not Estab. [facility] Urine chloride measurement ( moles/volume)Ordered By: Arlette Storey on 01-04-2025 Chloride (U) [Moles/Vol] 98 mmol/L Not Establ. [facility] Urine creatinine measurement Ordered By: Arlette Storey on 01-04-2025 Creatinine (U) [Mass/Vol] 63.10 mg/dL NO RANGE EST. [facility] Urine potassium measurementO rdered By: Arlette Storey on 01-04-2025 Urine Potassium 37.0 mmol/L Not Establ. [facility] Abdomen/Pelvis without Conto n 01-01-2025 Abdomen/Pelvis without Cont [facility] Imaging Services [address] [place] [address] Abdomen/Pelvis without Cont MR#: [id number] Acct: [id number] Name: JUAN R MCCARTNEY Rep #: [id number] : 1965 F 59 From: Anival galvez MD PCP: Dr. Alejo Fletcher MD Status: REG CLI Study: Abdomen/Pelvis without Cont Date of Exam: 12/13 12/05 Exam# [id number] Ordering Dr: Avelina Rios MD PROCEDURE: ABDOMEN/PELVIS [...] use of iterative reconstruction technique). Reading Location: [facility] CC: Dr. Avelina Rios MD; Dr. Alejo Fletcher MD Motion Study Analyst: Signed Normal [facility] Blood urea nitrogen (BUN)/cr eatinine ratioOrdered By: Arlette Storey on 12-23-2024 Urea nitrogen/Creatinine [Mass ratio] 25.7 mg/mg High 10-20 [facility] CNOVon 12-23-2024 CNOV Office Visit (GENSWS ) JUAN R GARCIA ([id number]) 1965 F Date Time Provider Department 12/23/24 [...] -takes a live probiotic -was told by AMPOULE INSPECTOR to ask about SIBO testing -notes she has recently been having some kidney issues including calculus of kidney AND multiple kidney stones been following with nephrology AND urology at [facility]. PAST MEDICAL HISTORY Diagnosis Date Adjustment disorder with depressed mood 01/14/2008 AK (actinic keratosis) 01/27/202401/2024: left upper chest cryo, Calculus of kidney CKD (chronic kidney disease) stage 3, GFR 30-59 ml/min ([facility]) 10/29/[address] Storey COPD (Chronic Obstructive [...] Temporal Romelia (more content not included)... Normal [facility] Neelam 12-23-2024 [facility] Telephone ([facility]) NATALIIA JUAN R POLLACK ([id number]) 1965 F Date Time Provider Department 12/23/24 TANA PETERSON During your visit today, we recorded the following information about you: Joel Acosta 12/23/2024 10:57 AM Signed Patient asking for her Gastro referral to be faxed over to [facility]. Please review. Joel Acosta December 23, 2024 10:57 AM Allergies As of Date: 12/23/2024 Noted Allergy Reaction NITROFURANTOIN 10/16/2016 14 - Other: See Comments Comments: Chest pain, sob, and body aches YEAST, DRIED 11/27/2005 16 - Unknown Date Reviewed: 12/23/2024 Reviewed by: Susana Florentino, BLAIRE - Fully Assessed Reason for Visit: Orders [...] Status:Closed by JOEL ACOSTA on 01/25/25 Normal [facility] Carbon dioxide measurementOr dered By: Arlette Storey on 12-23-2024 CO2 [Moles/Vol] 30.0 mmol/L 21.0-32.0 [facility] Chloride measurementOrdered By: Arlette Storey on 12-23-2024 Chloride [Moles/Vol] 106 mmol/L 98-107 [facility] Estimated glomerular filtrat ion rate (GFR) AmericanOrdered By: Arlette Storey on 12-23-2024 Estimated GFR (MDRD) Amer 63 mL/min >60 [facility] Comment on above: GFR Calc Glomerular filtration rate ( GFR) estimationOrdered By: Arlette Storey on 12-23-2024 Estimated GFR (MDRD) Non-Af Amer 52 mL/min Low >60 [facility] Comment on above: Non- GFR Calc GFR/1.73 sq M.predicted among non-blacks MDRD (S/P/Bld) [Vol rate/Area] 52 mL/min/{1.73_m2} Low >60 [facility] Comment on above: Non- GFR Calc Glucose measurementOrdered B y: Arlette Storey on 12-23-2024 Glucose [Mass/Vol] 99 mg/dL 74-106 [facility] Phosphorus measurementOrdere d By: Arlette Storey on 12-23-2024 Phosphorus Level 3.3 mg/dL 2.5-4.9 [facility] Potassium measurementOrdered By: Arlette Storey on 12-23-2024 Potassium [Moles/Vol] 4.5 mmol/L 3.5-5.1 [facility] Comment on above: Slight Hemolysis, Re sult may be falsely increased. Renal Profileon 12-23-2024 Albumin [Mass/Vol] 3.8 g/dL Normal 3.2-5.0 [facility] Comment on above: Performed By: #### L 500.7000, L501.5280, L502.000 #### [facility] [address] [place], [place], [address] BUN/CRE 25.7 RATIO High 10-20 [facility] Comment on above: Performed By: #### L 500.7000, L501.5280, L502.000 #### [facility] [address] [place], [address] CA,Total 9.4 mg/dL Normal 8.5-10.1 [facility] Comment on above: Performed By: #### L 500.7000, L501.5280, L502.000 #### [facility] [address] [place], [address] Chloride [Moles/Vol] 106 mmol/L Normal 98-107 [facility] Comment on above: Performed By: #### L 500.7000, L501.5280, L502.000 #### [facility] [address] [place], [address] CO2 [Moles/Vol] 30.0 mmol/L Normal 21.0-32.0 [facility] Comment on above: Performed By: #### L 500.7000, L501.5280, L502.000 #### [facility] [address] [place], [address] Creatinine [Mass/Vol] 1.13 mg/dL High 0.55-1.02 [facility] Comment on above: Result Comment: The validity of the calculated GFR GFRAA in patients over 70 years has not been determined. Clinical correlation is essential. Performed By: #### L 500.7000, L501.5280, L502.000 #### [facility] [address] [place], [address] EST GFR - AA 63 mL/min Normal >60 [facility] Comment on above: Result Comment: Afri can Bhutanese GFR Calc Performed By: #### L 500.7000, L501.5280, L502.000 #### [facility] [address] [place], [address] GFR/1.73 sq M.predicted among non-blacks MDRD (S/P/Bld) [Vol rate/Area] 52 mL/min/{1.73_m2} Low >60 [facility] Comment on above: Result Comment: Non- GFR Calc Performed By: #### L 500.7000, L501.5280, L502.000 #### [facility] [address] [place], [address] Glucose [Mass/Vol] 99 mg/dL Normal 74-106 [facility] Comment on above: Performed By: #### L 500.7000, L501.5280, L502.000 #### [facility] [address] [place], [address] Phosphate [Mass/Vol] 3.3 mg/dL Normal 2.5-4.9 [facility] Comment on above: Performed By: #### L 500.7000, L501.5280, L502.000 #### [facility] [address] [place], [address] Potassium [Moles/Vol] 4.5 mmol/L Normal 3.5-5.1 [facility] Comment on above: Result Comment: Slig ht Hemolysis, Result may be falsely increased. Performed By: #### L 500.7000, L501.5280, L502.000 #### [facility] [address] [place], [address] Sodium [Moles/Vol] 140 mmol/L Normal 136-145 [facility] Comment on above: Performed By: #### L 500.7000, L501.5280, L502.000 #### [facility] [address] [place], [address] Urea nitrogen [Mass/Vol] 29 mg/dL High 7-18 [facility] Comment on above: Performed By: #### L 500.7000, L501.5280, L502.000 #### [facility] [address] [place], [address] Serum or plasma albumin michael urement (mass/volume)Ordered By: Arlette Storey on 12-23-2024 Albumin [Mass/Vol] 3.8 g/dL 3.2-5.0 [facility] Serum or plasma calcium michael urement (mass/volume)Ordered By: Arlette Storey on 12-23-2024 Calcium [Mass/Vol] 9.4 mg/dL 8.5-10.1 [facility] Serum or plasma creatinine m easurement (mass/volume)Ordered By: Arlette Storey on 12-23-2024 Creatinine [Mass/Vol] 1.13 mg/dL High 0.55-1.02 [facility] Comment on above: The validity of the calculated GFR & GFRAA in patients over 70 years has not been determined. Clinical correlation is essential. Serum or plasma urea nitroge n measurement (mass/volume)Ordered By: Arlette Storey on 12-23-2024 Urea nitrogen [Mass/Vol] 29 mg/dL High 7-18 [facility] Sodium levelOrdered By: Boyd Storey on 12-23-2024 Sodium [Moles/Vol] 140 mmol/L 136-145 [facility] CNOVon 11-25-2024 CNOV Office Visit (OBGYWM ) ILAHANJUAN R FISHMAN ([id number]) 1965 F Date Time Provider Department 11/25/24 9:20 AM TANYA BRAR OBGYWM During your visit today, we recorded the following information about you: Blood pressure Weight Height 124/62 50.8 kg 1.556 m Tanya Brar MD 11/25/2024 10:00 AM Signed Table Tender Sludge offered: Patient declines. Pete is a 58 [...] L1 SAB0 IAB0 Ectopic0 Multiple0 Live Births0 Finishing Room Operator History LMP: Hysterectomy Age at Menarche: 13 Age at First : Age at Menopause: Finishing Room Operator History Comments: Sexual Activity: Yes; Male; hysterectomy Contraception: Surgical PAST MEDICAL HISTORY Diagnosis Date Adjustment disorder with depressed mood 01/14/2008 AK (actinic keratosis) 01/27/202401/2024: left upper chest cryo, Calculus of kidney CKD (chronic kidney disease) stage 3, GFR 30-59 ml/min ([facility]) 10/29/[address] Storey COPD (Chronic Obstructive [...] Was treated. Stage 3a chronic kidney disease ([facility]) 10/29/[address] Storey Vertigo 04/01/2010 rare [...] discussed with the Patient or Patient's Authorized Bi Tri Operator. As applicable, any other physician, advance practice provider, medical student, or other health professional student that will be observing or involved in the sensitive examination for educational or training purposes was discussed with the Patient or Authorized Bi Tri Operator. The Patient or Authorized Bi Tri Operator has agreed to proceed with the sensitive [...] nipple dis (more content not included)... Normal [facility] Abdomen/Pelvis without Conto n 11-07-2024 Abdomen/Pelvis without Cont [facility] Imaging Services [address] [place], [place] [id number] Abdomen/Pelvis without Cont MR#: [id number] Acct: [id number] Name: REEMAJUAN R SMART NATALIIA Rep #: [id number] : 1965 F 58 From: Leora trevizo MD PCP: Dr. Alejo Fletcher MD Status: REG ER Study: Abdomen/Pelvis without Cont Date of Exam: 10/12 07/04 Exam# [id number] Ordering Dr: Pooja Ac DO [id number] HISTORY: Kidney Stone. TECHNIQUE: Helically acquired images [...] diverticulosis without acute diverticulitis. Electronically Signed: Leora gA MD at 13:24 EST , CC: Dr. Pooja Ac DO; Dr. Alejo Fletcher MD Motion Study Analyst: Signed Normal [facility] Absolute neutrophil countOrd ered By: Pooja Ac on 11-07-2024 Neutrophils (Bld) [#/Vol] 9.3 10*3/uL High 2.0-7.7 [facility] Basic Metabolic Profile (BMP )on 11-07-2024 BUN/CRE 23.1 RATIO High 10-20 [facility] Comment on above: Performed By: #### L 100.0100, L500.2500 #### [facility] [address] [place], [address] CA,Total 10.0 mg/dL Normal 8.5-10.1 [facility] Comment on above: Performed By: #### L 100.0100, L500.2500 #### [facility] [address] [place], [address] Chloride [Moles/Vol] 106 mmol/L Normal 98-107 [facility] Comment on above: Performed By: #### L 100.0100, L500.2500 #### [facility] [address] [place], [address] CO2 [Moles/Vol] 30.0 mmol/L Normal 21.0-32.0 [facility] Comment on above: Performed By: #### L 100.0100, L500.2500 #### [facility] [address] [place], [address] Creatinine [Mass/Vol] 1.30 mg/dL High 0.55-1.02 [facility] Comment on above: Result Comment: The validity of the calculated GFR GFRAA in patients over 70 years has not been determined. Clinical correlation is essential. Performed By: #### L 100.0100, L500.2500 #### [facility] [address] [place], [address] ECRCL 36.40 ml/min Normal [facility] Comment on above: Performed By: #### L 100.0100, L500.2500 #### [facility] [address] [place], [address] EST GFR - AA 54 mL/min Low >60 [facility] Comment on above: Result Comment: Afri can Bhutanese GFR Calc Performed By: #### L 100.0100, L500.2500 #### [facility] [address] [place], [address] GAP 4 Low 5-15 [facility] Comment on above: Performed By: #### L 100.0100, L500.2500 #### [facility] [address] [place], [address] GFR/1.73 sq M.predicted among non-blacks MDRD (S/P/Bld) [Vol rate/Area] 44 mL/min/{1.73_m2} Low >60 [facility] Comment on above: Result Comment: Non- GFR Calc Performed By: #### L 100.0100, L500.2500 #### [facility] [address] [place], [address] Glucose [Mass/Vol] 138 mg/dL High 74-106 [facility] Comment on above: Result Comment: Fast ing Glucose result greater than or equal to 126 mg/dL suggests DIABETES MELLITUS per A.D.A. criteria. Performed By: #### L 100.0100, L500.2500 #### [facility] [address] [place], [address] Potassium [Moles/Vol] 4.0 mmol/L Normal 3.5-5.1 [facility] Comment on above: Performed By: #### L 100.0100, L500.2500 #### [facility] [address] [place], [address] Sodium [Moles/Vol] 140 mmol/L Normal 136-145 [facility] Comment on above: Performed By: #### L 100.0100, L500.2500 #### [facility] [address] [place], [address] Urea nitrogen [Mass/Vol] 30 mg/dL High 7-18 [facility] Comment on above: Performed By: #### L 100.0100, L500.2500 #### [facility] [address] [place], [address] Basophil percentageOrdered B y: Pooja Ac on 11-07-2024 Basophils/100 WBC (Bld) 0.3 % 0-1 [facility] Bilirubin Test strip Ql (U)O rdered By: Pooja Ac on 11-07-2024 Bilirubin Ql (U) Negative Negative [facility] Blood urea nitrogen (BUN)/cr eatinine ratioOrdered By: Pooja Ac on 11-07-2024 Urea nitrogen/Creatinine [Mass ratio] 23.1 mg/mg High 10-20 [facility] CBC W/Diff, Automatedon 10-12 Absolute Lymph 1.46 X10 3/uL Normal 0.83-4.51 [facility] Comment on above: Performed By: #### L 100.0100, L500.2500 #### [facility] [address] [place], [address] Absolute Neut 9.3 X10 3/uL High 2.0-7.7 [facility] Comment on above: Performed By: #### L 100.0100, L500.2500 #### [facility] [address] [place], [address] Basophils/100 WBC (Bld) 0.3 % Normal 0-1 [facility] Comment on above: Performed By: #### L 100.0100, L500.2500 #### [facility] [address] [place], [address] Eosinophils/100 WBC (Bld) 0.3 % Normal 0-5 [facility] Comment on above: Performed By: #### L 100.0100, L500.2500 #### [facility] [address] [place], [address] Erythrocyte distribution width (RBC) [Ratio] 12.9 % Normal 11.6-14.6 [facility] Comment on above: Performed By: #### L 100.0100, L500.2500 #### [facility] [address] [place], [address] Hematocrit (Bld) [Volume fraction] 41.3 % Normal 37-47 [facility] Comment on above: Performed By: #### L 100.0100, L500.2500 #### [facility] [address] [place], [address] Hemoglobin (Bld) [Mass/Vol] 13.4 g/dL Normal 12.0-15.0 [facility] Comment on above: Performed By: #### L 100.0100, L500.2500 #### [facility] [address] [place], [address] IG% 0.400 Normal 0.0-0.9 [facility] Comment on above: Result Comment: IG% - Immature Granulocytes (promyelocytes, myelocytes and metamyelocytes) > 1% indicates that a LEFT SHIFT is Present. Performed By: #### L 100.0100, L500.2500 #### [facility] [address] [place], [address] Lymphocytes/100 WBC (Bld) 12.8 % Low 19-41 [facility] Comment on above: Performed By: #### L 100.0100, L500.2500 #### [facility] [address] [place], [address] MCH (RBC) [Entitic mass] 30.2 pg Normal 27.0-32.0 [facility] Comment on above: Performed By: #### L 100.0100, L500.2500 #### [facility] [address] [place], [address] MCHC (RBC) [Mass/Vol] 32.4 g/dL Normal 32-36 [facility] Comment on above: Performed By: #### L 100.0100, L500.2500 #### [facility] [address] [place], [address] MCV (RBC) [Entitic vol] 93.0 fL Normal 81-99 [facility] Comment on above: Performed By: #### L 100.0100, L500.2500 #### [facility] [address] [place], [address] Monocytes/100 WBC (Bld) 5.0 % Normal 0-10 [facility] Comment on above: Performed By: #### L 100.0100, L500.2500 #### [facility] [address] [place], [address] Neutrophils/100 WBC (Bld) 81.2 % High 47-70 [facility] Comment on above: Performed By: #### L 100.0100, L500.2500 #### [facility] [address] [place], [address] Nucleated RBC (Bld) [#/Vol] 0 10*3/uL Normal 0-5 [facility] Comment on above: Performed By: #### L 100.0100, L500.2500 #### [facility] [address] [place], [address] Platelet mean volume (Bld) [Entitic vol] 10.4 fL Normal 6.2-12.0 [facility] Comment on above: Performed By: #### L 100.0100, L500.2500 #### [facility] [address] [place], [address] Platelets (Bld) [#/Vol] 260 10*3/uL Normal 150-450 [facility] Comment on above: Performed By: #### L 100.0100, L500.2500 #### [facility] [address] [place], [address] RBC (Bld) [#/Vol] 4.44 10*6/uL Normal 4.2-5.4 [facility] Comment on above: Performed By: #### L 100.0100, L500.2500 #### [facility] [address] [place], [address] RDW SD 43.8 fl Normal 35.1-43.9 [facility] Comment on above: Performed By: #### L 100.0100, L500.2500 #### [facility] [address] [place], [address] WBC (Bld) [#/Vol] 11.4 10*3/uL High 4.4-11.0 [facility] Comment on above: Performed By: #### L 100.0100, L500.2500 #### [facility] [address] [place], [address] Carbon dioxide measurementOr dered By: Pooja Ac on 11-07-2024 CO2 [Moles/Vol] 30.0 mmol/L 21.0-32.0 [facility] Chloride measurementOrdered By: Pooja Ac on 11-07-2024 Chloride [Moles/Vol] 106 mmol/L 98-107 [facility] Emergency Department Summary on 11-07-2024 Emergency Department Summary [facility] Medical Records Department [address] [place] [address] Emergency Department Summary 11/07/24 MR#: [id number] Acct: [id number] Name: JUAN R POLLACK Rep #: [id number] : 1965 58 From: Pooja Ac DO [...] t his does not feel like diverticulitis. [facility] Medical History Wears contact lenses Wears [...] CVA tende (more content not included)... Normal [facility] Eosinophil percentageOrdered By: Pooja Ac on 11-07-2024 Eosinophils/100 WBC (Bld) 0.3 % 0-5 [facility] Epithelial cells.squamous LM Ql (Urine sed)Ordered By: Pooja Ac on 11-07-2024 Epithelial cells.squamous LM.HPF (Urine sed) [#/Area] 0 /[HPF] 5-10 [facility] Erythrocyte distribution wid th ratioOrdered By: Pooja Ac on 11-07-2024 Erythrocyte distribution width (RBC) [Ratio] 12.9 % 11.6-14.6 [facility] Erythrocyte distribution wid th standard deviationOrdered By: Pooja Ac on 11-07-2024 Erythrocyte distribution width (RBC) [Entitic vol] 43.8 fL 35.1-43.9 [facility] Estimated glomerular filtrat ion rate (GFR) AmericanOrdered By: Pooja Ac on 11-07-2024 Estimated GFR (MDRD) Amer 54 mL/min Low >60 [facility] Comment on above: GFR Calc Estimation of creatinine clary aranceOrdered By: Pooja Ac on 11-07-2024 Estimated Creatinine Clearance Calc 36.40 ml/min [facility] Glomerular filtration rate ( GFR) estimationOrdered By: Pooja Ac on 11-07-2024 Estimated GFR (MDRD) Non-Af Amer 44 mL/min Low >60 [facility] Comment on above: Non- GFR Calc Glucose Ql (U)Ordered By: Alexander Ac on 11-07-2024 Urine Glucose (UA) Normal mg/dl Normal [facility] Glucose measurementOrdered B y: Pooja Ac on 11-07-2024 Glucose [Mass/Vol] 138 mg/dL High 74-106 [facility] Comment on above: Fasting Glucose resu lt greater than or equal to 126 mg/dL suggests DIABETES MELLITUS per A.D.A. criteria. Hematocrit Auto (Bld) [Volum e fraction]Ordered By: Pooja Ac on 11-07-2024 Hematocrit (Bld) [Volume fraction] 41.3 % 37-47 [facility] Hemoglobin measurementOrdere d By: Pooja Ac on 11-07-2024 Hemoglobin (Bld) [Mass/Vol] 13.4 g/dL 12.0-15.0 [facility] Immature granulocytes/100 WB C Auto (Bld)Ordered By: Pooja Ac on 11-07-2024 Immature granulocytes/100 WBC (Bld) 0.400 % 0.0-0.9 [facility] Comment on above: IG% - Immature Granu locytes (promyelocytes, myelocytes and metamyelocytes) > 1% indicates that a LEFT SHIFT is Present. Ketones Test strip Ql (U)Ord ered By: Pooja Ac on 11-07-2024 Ketones Ql (U) Negative Negative [facility] Lymphocytes Auto (Unsp spec) [#/Vol]Ordered By: Pooja Ac on 11-07-2024 Lymphocytes (Bld) [#/Vol] 1.46 10*3/uL 0.83-4.51 [facility] Lymphocytes/100 WBC Auto (Un sp spec)Ordered By: Pooja Ac on 11-07-2024 Lymphocytes/100 WBC (Bld) 12.8 % Low 19-41 [facility] MCV (mean corpuscular volume ) determinationOrdered By: Pooja Ac on 11-07-2024 MCV (RBC) [Entitic vol] 93.0 fL 81-99 [facility] Mean corpuscular hemoglobin (MCH) determinationOrdered By: Pooja Ac on 11-07-2024 MCH (RBC) [Entitic mass] 30.2 pg 27.0-32.0 [facility] Mean corpuscular hemoglobin concentration (MCHC) determinationOrdered By: Pooja Ac on 11-07-2024 MCHC (RBC) [Mass/Vol] 32.4 g/dL 32-36 [facility] Mean platelet volume determi nationOrdered By: Pooja Ac on 11-07-2024 Platelet mean volume (Bld) [Entitic vol] 10.4 fL 6.2-12.0 [facility] Microscopic analysis of urin e for red blood cells (RBC)Ordered By: Pooja Ac on 11-07-2024 Urine RBC 0 SEEN /hpf 0-5 [facility] Monocyte percentageOrdered B y: Pooja Ac on 11-07-2024 Monocytes/100 WBC (Bld) 5.0 % 0-10 [facility] Mucus LM Ql (Urine sed)Order ed By: Pooja Ac on 11-07-2024 Mucus Ql (Urine sed) 0 SEEN /hpf [facility] Neutrophil percentageOrdered By: Pooja Ac on 11-07-2024 Neutrophils/100 WBC (Bld) 81.2 % High 47-70 [facility] Nitrite Test strip Ql (U)Ord ered By: Pooja Ac on 11-07-2024 Nitrite Ql (U) Negative Negative [facility] Nucleated red blood cell per centageOrdered By: Pooja Ac on 11-07-2024 Nucleated RBC/100 WBC (Bld) [Ratio] 0 % 0-5 [facility] Platelet countOrdered By: Alexander Ac on 11-07-2024 Platelets (Bld) [#/Vol] 260 10*3/uL 150-450 [facility] Potassium measurementOrdered By: Pooja Ac on 11-07-2024 Potassium [Moles/Vol] 4.0 mmol/L 3.5-5.1 [facility] Protein Test strip Ql (U)Ord ered By: Pooja Ac on 11-07-2024 Protein Ql (U) 15 mg/dl High Negative [facility] RBC Auto (Bld) [#/Vol]Ordere d By: Pooja Ac on 11-07-2024 RBC (Bld) [#/Vol] 4.44 10*6/uL 4.2-5.4 [facility] Serum anion gap measurementO rdered By: Pooja Ac on 11-07-2024 Anion gap [Moles/Vol] 4 mmol/L Low 5-15 [facility] Serum or plasma calcium michael urement (mass/volume)Ordered By: Pooja Ac on 11-07-2024 Calcium [Mass/Vol] 10.0 mg/dL 8.5-10.1 [facility] Serum or plasma creatinine m easurement (mass/volume)Ordered By: Pooja Ac on 11-07-2024 Creatinine [Mass/Vol] 1.30 mg/dL High 0.55-1.02 [facility] Comment on above: The validity of the calculated GFR & GFRAA in patients over 70 years has not been determined. Clinical correlation is essential. Serum or plasma urea nitroge n measurement (mass/volume)Ordered By: Pooja Ac on 11-07-2024 Urea nitrogen [Mass/Vol] 30 mg/dL High 7-18 [facility] Sodium levelOrdered By: Guillermo Ac on 11-07-2024 Sodium [Moles/Vol] 140 mmol/L 136-145 [facility] Urinalysis, Completeon 11-07 BACTERIA 1+ /hpf Normal None Seen [facility] Comment on above: Order Comment: JAYLA CTOR TO SPECIFY Performed By: #### L 500.7000, L501.5280, L502.000 #### [facility] [address] [place], [address] EPI,SQUAMOUS 0-5 SEEN Normal 5-10 [facility] Comment on above: Order Comment: JAYLA CTOR TO SPECIFY Performed By: #### L 500.7000, L501.5280, L502.000 #### [facility] [address] [place], [address] WBC 0-5 SEEN Normal 0-5 [facility] Comment on above: Order Comment: JAYLA CTOR TO SPECIFY Performed By: #### L 500.7000, L501.5280, L502.000 #### [facility] [address] [place], [address] Mucus Ql (Urine sed) 0 SEEN Normal [facility] Comment on above: Order Comment: JAYLA CTOR TO SPECIFY Performed By: #### L 500.7000, L501.5280, L502.000 #### [facility] [address] [place], [address] RBC 0 SEEN Normal 0-5 [facility] Comment on above: Order Comment: JAYLA CTOR TO SPECIFY Performed By: #### L 500.7000, L501.5280, L502.000 #### [facility] [address] [place], [address] Urine blood detectionOrdered By: Pooja Ac on 11-07-2024 Urine Occult Blood Negative Negative [facility] Urine clarityOrdered By: Zenaida Ac on 11-07-2024 Clarity (U) Clear Clear [facility] Urine color determinationOrd ered By: Pooja Ac on 11-07-2024 Color (U) Straw Yellow [facility] Urine leukocyte esterase det ection by dipstickOrdered By: Pooja Ac on 11-07-2024 Leukocyte esterase Test strip Ql (U) Negative Negative [facility] Urine pHOrdered By: Pooja hui on 11-07-2024 pH (U) 6.0 [pH] 5.0 - 8.0 [facility] Urine sediment bacteria coun t by microscopy (number/high power field)Ordered By: Pooja Ac on 11-07-2024 Bacteria LM.HPF (Urine sed) [#/Area] 1 /[HPF] None Seen [facility] Urine specific gravity measu rementOrdered By: Pooja Ac on 11-07-2024 Specific gravity (U) [Rel density] 1.015 1.002-1.030 [facility] Urobilinogen Ql (U)Ordered B y: Pooja Ac on 11-07-2024 Urine Urobilinogen Normal mg/dl Normal [facility] White blood cell (WBC) count Ordered By: Pooja Ac on 11-07-2024 WBC (Bld) [#/Vol] 11.4 10*3/uL High 4.4-11.0 [facility] White blood cell countOrdere d By: Pooja Ac on 11-07-2024 Urine WBC 0-5 SEEN /hpf 0-5 [facility] CNOVon 08-07-2024 CNOV Office Visit (GENSWS ) JUAN R GARCIA ([id number]) 1965 F Date Time Provider Department 08/07/24 8:00 AM TANA PETERSON During your visit today, we recorded the following information about you: Tana Peterson APRN.CNP 08/07/2024 8:18 AM Signed FOLLOW UP VISIT - ENDOSCOPY Juan R Pollack 1965 [id number] REFERRING PHYSICIAN: Marcial Davis III [address] [facility] [address] Juan R Pollack is a patient I [...] needed for worsening/no improvement. Tana Peterson APRN.EMILY Referring Provider: MARCIAL DAVIS [[id number]] Allergies As of Date: 08/07/2024 Noted Allergy Reaction NITROFURANTOIN 10/16/2016 14 - Other: See Comments Comments: Chest pain, sob, and body aches YEAST, DRIED 11/27/2005 16 - Unknown Date Reviewed: 08/07/2024 Reviewed by: Tana Peterson APRN.CABINET INSTALLER - Fully Assessed Reason for Visit: Follow [...] Encounter Status:Closed by TANA PETERSON on 08/07/24 [facility] [id number] 07-30-2024 [id number] HNO ID: [id number] Author: SHRUTI ELLER RN Service: ? Author Type: Registered Nurse Type: [id number] Filed: 07/30/2024 08:46 Note Text: The patient received a copy of Colonoscopy discharge instructions that contain information for how to contact the physician who performed the procedure and when to seek medical care.Shruti Eller RN [facility] Colonoscopyon 07-30-2024 Colonoscopy Nicole [facility] Gastrointestinal Endoscopy Patient Name: Juan R Pollack [...] be scheduled. Procedure Code(s): --- Professional --- 80611, Colonoscopy, flexible; with biopsy, single or multiple G0500, Moderate sedation services provided by the same physician or other qualified health career center director performing a gastrointestinal endoscopic service that sedation supports, requiring the presence of an independent trained observer to assist in the monitoring of the patient's level of consciousness and physiological status; initial 15 minutes of intra-service time; patient age 5 years or older (additional time may be reported with 76450, as appropriate) Diagnosis Code(s): --- Professional --- K64.8, Other hemorrhoids R19.7, Diarrhea, unspecified K57.30, Diverticulosis of large intestine without perforation or abscess without bleeding CPT copyright 2020 [employer]. All rights reserved. The codes documented in this report are preliminary and upon laboratory apparatus glass grinder review may be revised to meet current compliance requirements. Attending Participation: I personally performed the entire procedure. Scope In: 8:08:38 AM Scope Out: 8:25:02 AM MD Marcial Lira MD 07/30/2024 8:29:52 AM This report has been signed electronically by Marcial Davis MD Number of Addenda: 0 Note Initiated On: 07/30/2024 7:47 AM Estimated Blood Loss: Estimated (more content not included)... Normal [facility] Flexible sigmoidoscopy study on 07-30-2024 [facility] Gastrointestinal Endoscopy Patient Name: Juan R Pollack [...] October 2015. Referring Physician: Tana Peterson (Referring ) Medicines: Fentanyl 100 micrograms IV, Midazolam 5 [...] be scheduled. Procedure Code(s): --- Professional --- 98537, Colonoscopy, flexible; with biopsy, single or multiple (more content not included)... [facility]ATION [facility] Radiology Study observation (narrative) [facility] HISTORY PHYSICALon HISTORY PHYSICAL HNO ID: [id number] Author: MARCIAL DAVIS MD Service: General Surgery [...] colonoscopy was [address] Pace at [facility]. Sedation received:Fentanyl 100 micrograms IV, Midazolam 4 [...] kidney disease) stage 3, GFR 30-59 ml/min ([facility]) 10/29/[address] Storey COPD (Chronic Obstructive [...] frequent coug (more content not included)... Normal [facility] NURSING PROGon 07-30-2024 NURSING PROG HNO ID: [id number] Author: SHRUTI ELLER RN Service: ? Author [...] review procedure and recommendations. Shruti Eller RN [facility] CNOVon 07-24-2024 CNOV Office Visit (GENSWS ) JUAN R GARCIA ([id number]) 1965 F Date Time Provider Department 07/24/24 [...] colonoscopy was [address] Pace at [facility]. Sedation received:Fentanyl 100 micrograms IV, Midazolam 4 [...] kidney disease) stage 3, GFR 30-59 ml/min ([facility]) 10/29/[address] Storey COPD (Chronic Obstructive [...] patient denie (more content not included)... Normal [facility] JUAN R GARCIA ([id number]) 1965 F Date Time Provider Department 07/08/24 ALEJO FLETCHER [facility] During your visit today, we recorded the [...] OV. Request PCP for gastroenterology referral. Ayan Michael MA 07/08/2024 12:57 PM Signed Left message to call office. 07/08/2024 12:57 PM Opal Reynoso DIE INSPECTOR 07/08/2024 1:05 PM Signed states that everything [...] instructions. Pt would like medication sent to [facility] in [place]. Pt voices understanding. Transferred to scheduled to [...] 28 capsuleRfl: 0 CONSULT TO GENERAL SURGERY [7539] Order #: [id number]: 1 FUTURE Prescriptions as of 07/14/2024 - [...] 03/20/2008 08/18/20 (more content not included)... Normal [facility] CNCOon 07-06-2024 CNCO HNO ID: [id number] Author: COORDINATOR, MAMMOGRAPHY, ? Service: ? Author Type: Physician Type: Letter Filed: 07/06/2024 13:07 Note Text: July 06, 2024 PID: [id number] Juan R Pollack [address] [id number] Dear Ms. Nataliia Pollack, We are pleased [...] report will be kept on file at [facility] as part of your permanent medical record and are available for your continuing care. Thank you for allowing us to help in meeting your health care needs. Sincerely, Dr. Stout Interpreting Radiologist [facility] (Normal over 40) Normal [facility] Amylase SerPl-cCncon 024 Amylase [Catalytic activity/Vol] 53 U/L Normal 30-104 [facility] Comment on above: Order Comment: Toi men Type: BLOOD SPECIMENOrdering Facility: [facility] Address: [address] [place] [address] Performed By: #### 1 798-8, 3016-3, 3040-3 ####[facility] LABCLIA [id number] [place] [address] [place] FAT, FECAL QUALon 07-03-2024 FAT, FECAL - NEUTRAL Normal Normal Normal [facility] Comment on above: Order Comment: Speci men Type: STOOL SPECIMENOrdering Facility: [facility] Address: [address] [place] [address] Performed By: #### F FATQL ####[facility] [id number] [place] [address] FAT, FECAL - SPLIT Normal Normal Normal [facility] Comment on above: Order Comment: Speci men Type: STOOL SPECIMENOrdering Facility: [facility] Address: [address] [place] [address] Result Comment: INTE RPRETIVE INFORMATION: Fecal Fat Qualitative Neutral fats include the monoglycerides, diglycerides, and triglycerides while split fats are the free fatty acids that are liberated from them. Impaired synthesis or secretion of pancreatic enzymes or bile may cause an increase in neutral fats while an increase in split fats suggests impaired absorption of nutrients. Performed By: [facility] [address] [address] Freight And Passenger Agent: Shashi Curry MD, PhD CLIA Number: [id number] Performed By: #### F FATQL ####[facility] [id number] [place] [address] FECAL LACTOFERRIN/LEUKOCYTES on 07-03-2024 Lactoferrin IA Ql (Stl) Positive for lactoferrin, which may indicate presence of fecal white blood cells Abnormal Negative [facility] Comment on above: Order Comment: Speci men Type: STOOL SPECIMENOrdering Facility: [facility] Address: [address] [place] [address] Performed By: #### F ECWBC ####[facility] LABIA [id number] [place] [address] [place] G lamblia+Cryptosp Ag Stl Ql IAon 07-03-2024 G. lamblia+Cryptosporidium sp Ag IA Ql (Stl) CRYPTOSPORIDIUM ANTIGEN BY EIA: Negative for Cryptosporidium by EIA. GIARDIA ANTIGEN BY EIA: Negative for Giardia lamblia by EIA. Normal [facility] Comment on above: Performed By: #### 4 8059-0, 54925-2 ####[facility] LABCLIA [id number] [place] [address] [place] Gastrointestinal pathogens i dentified JUSTO+probe Nom (Stl)on 07-03-2024 Campylobacter sp DNA JUSTO+probe Nom (Unsp spec) Not detected Normal Not Detected [facility] Comment on above: Order Comment: Speci men Type: STOOL SPECIMENOrdering Facility: [facility] Address: [address] [place] [address] Performed By: #### 4 8059-0, 59190-1 ####[facility] LABCLIA [id number] [place] [address] [place] Salmonella sp DNA JUSTO+probe Ql (Unsp spec) Not detected Normal Not Detected [facility] Comment on above: Order Comment: Speci men Type: STOOL SPECIMENOrdering Facility: [facility] Address: [address] [place] [address] Performed By: #### 4 8059-0, 53009-2 ####[facility] LABCLIA [id number] [place] [address] [place] Shiga toxin stx gene JUSTO+probe Nom (Unsp spec) Not detected Normal Not Detected [facility] Comment on above: Order Comment: Speci men Type: STOOL SPECIMENOrdering Facility: [facility] Address: [address] [place] [address] Performed By: #### 4 8059-0, 00536-0 ####[facility] LABCLIA [id number] [place] [address] [place] Shigella sp DNA JUSTO+probe Ql (Unsp spec) Not detected Normal Not Detected [facility] Comment on above: Order Comment: Speci men Type: STOOL SPECIMENOrdering Facility: [facility] Address: [address] [place] [address] Performed By: #### 4 8059-0, 45580-9 ####[facility] LABCLIA [id number] [place] [address] [place] H. pylori IgG IA Qlon 2023 H. PYLORI IGG, QUAL Positive Abnormal Negative [facility] Comment on above: Order Comment: Speci fabian Type: BLOOD SPECIMENOrdering Facility: [facility] Address: [address] [place] [address] Result Comment: The result suggests recent or past infection with H. pylori. Clinical correlation is required. Where clinically warranted, follow up testing is suggested including Urea Breath Test or H. pylori stool antigen test. Performed By: #### 1 7859-0 ####[facility] LABCLIA [id number] [facility] [id number] [address] [place] Hepatic function 2000 panelo 07-03-2024 Albumin [Mass/Vol] 4.8 g/dL Normal 3.9-4.9 [facility] Comment on above: Order Comment: Nadeem peralta Type: BLOOD SPECIMENOrdering Facility: [facility] Address: [address] [place] [address] Performed By: #### 2 4325-3 ####[facility] [id number] [place] [address] [place] ALP [Catalytic activity/Vol] 67 U/L Normal 34-123 [facility] Comment on above: Order Comment: Toi fabian Type: BLOOD SPECIMENOrdering Facility: [facility] Address: [address] [place] [address] Performed By: #### 2 4325-3 ####[facility]CL[facility] [id number] [place] [address] [place] ALT [Catalytic activity/Vol] 12 U/L Normal 7-38 [facility] Comment on above: Order Comment: Toi men Type: BLOOD SPECIMENOrdering Facility: [facility] Address: [address] [place] [address] Performed By: #### 2 4325-3 ####[facility] [id number] [place] [address] [place] AST [Catalytic activity/Vol] 19 U/L Normal 13-35 [facility] Comment on above: Order Comment: Speci men Type: BLOOD SPECIMENOrdering Facility: [facility] Address: [address] [place] [address] Performed By: #### 2 4325-3 ####[facility] [id number] [place] [address] [place] Bilirubin [Mass/Vol] 0.2 mg/dL Normal 0.2-1.3 [facility] Comment on above: Order Comment: Speci men Type: BLOOD SPECIMENOrdering Facility: [facility] Address: [address] [place] [address] Performed By: #### 2 4325-3 ####[facility] [id number] [place] [address] [place] Bilirubin.conjugated [Mass/Vol] mg/dL Normal <0.2 [facility] Comment on above: Order Comment: Speci men Type: BLOOD SPECIMENOrdering Facility: [facility] Address: [address] [place] [address] Performed By: #### 2 4325-3 ####[facility]ITAL[facility]CL[facility] [id number] [place] [address] [place] Protein [Mass/Vol] 7.0 g/dL Normal 6.3-8.0 [facility] Comment on above: Order Comment: Speci men Type: BLOOD SPECIMENOrdering Facility: [facility] Address: [address] [place] [address] Performed By: #### 2 4325-3 ####[facility] [id number] [place] [address] [place] Lipase SerPl-cCncon 07-03-20 24 Lipase [Catalytic activity/Vol] 41 U/L Normal 16-61 [facility] Comment on above: Order Comment: Speci men Type: BLOOD SPECIMENOrdering Facility: [facility] Address: [address] [place] [address] Performed By: #### 1 798-8, 3016-3, 3040-3 ####[facility] LABCLIA [id number] [address] [id number], [place] [address] [place] MEAGHAN SCREENINGon 07-03-2024 MEAGHAN SCREENING * * *Final Report* * * DATE OF EXAM: Jul 03 2024 7:32AM WRW 0581 - [facility] SCREENING / PROCEDURE REASON: Encounter for screening mammogram for breast cancer * * * * Physician Interpretation * * * * RESULT: #[id number] - [facility] SCREENING BILATERAL DIGITAL SCREENING MAMMOGRAM WITH [...] dated: 02/06/2023 mammogram and 02/06/2022 mammogram - [facility]. There are scattered areas of fibroglandular density. No significant masses, calcifications, or other findings are seen in either breast. There has been no significant interval change. IMPRESSION: NEGATIVE There is no mammographic evidence of malignancy. A 1 year screening mammogram is recommended. Keshia Stout M.D. lp/dora:07/06/2024 13:07:42 Rn Endoscopy(s): RT Aleksandr(R)(M), [facility] letter sent: Normal over 40 Mammogram BI-RADS: [...] Health, Family Medicine, and Medical/Surgical Oncology, the [facility] has carefully reviewed the data and reached [...] their providers when to stop screening mammograms. Motion Study Analyst: Dora Transcribe Date/Time: Jul 03 2024 7:20A Dictated by: KESHIA STOUT MD This examination was interpreted and the report reviewed and electronically signed by: KESHIA STOUT MD on Jul 06 2024 1:07PM EST [id number] Normal [facility] TSH SerPl-aCncon 07-03-2024 TSH Qn 0.855 m[IU]/L Normal 0.270-4.200 [facility] Comment on above: Order Comment: Speci men Type: BLOOD SPECIMENOrdering Facility: [facility] Address: [address] [place] [address] Performed By: #### 1 798-8, 3016-3, 3040-3 ####[facility] LABCLIA [id number] [address] [facility] CNOVon 07-01-2024 CNOV Office Visit (FAMPWS ) JUAN R GARCIA ([id number]) 1965 F Date Time Provider Department 07/01/24 7:20 PM ALEJO FLETCHERPMAUDE During your visit today, we recorded the [...] kidney disease) stage 3, GFR 30-59 ml/min ([facility]) Comment: Seeing Dr. Storey 04/01/2010: COPD (Chronic [...] Mid-epigastric soreness (more content not included)... Normal [facility] 24 hour urine citric acid me asurement (mass/time)Ordered By: Arlette Storey on 08-09-2023 Citrate (24H U) [Mass/Time] 423 mg/24 hr 320-1240 [facility] Comment on above: Performed at: [address] [id number] Director: Sobia Griggs MD, Phone: [phone] No Panel InformationOrdered By: Arlette Storey on 08-09-2023 Urine Citric Acid 273 mg/L Undefined [facility] 24 hour urine calcium measur ement (mass/time)Ordered By: Arlette Storey on 08-08-2023 Calcium (24H U) [Mass/Time] 190.8 mg/24 HR 42.0-353.0 [facility] 24 hour urine sodium measure ment (mass/time)Ordered By: Arlette Storey on 08-08-2023 Sodium (24H U) [Mass/Time] 125 mmol/24h 40-220 [facility] 24 hour urine specimen volum e measurementOrdered By: Arlette Storey on 08-08-2023 Specimen volume (24H U) 1.2 L [facility] Comment on above: *Additional results available. Contact laboratory/see report* Laboratory - Chemistry and C hemistry - challengeOrdered By: Arlette Storey on 08-08-2023 pH (U) 1 [pH] [facility] Sodium (U) [Moles/Vol] 104 mmol/L Not Establ. [facility] Laboratory - Specimen inform ationOrdered By: Arlette Storey on 08-08-2023 Collection time (Sharonda) [Date/time] 24.0 HR 24.0-24.0 [facility] No Panel InformationOrdered By: Arlette Storey on 08-08-2023 Urine Calcium 15.9 Not Estab. [facility] Urine Chloride 24 Hour TNP [facility] Comment on above: Test not performed Urine Potassium [facility]NP [facility] [facility] Comment on above: Test not performed Urine Potassium 24 Hour TNP [facility] Comment on above: Test not performed Thin prep Papanicolaou smear with manual screeningOrdered By: Arlette Storey on 08-08-2023 Thin prep [facility]icolaou [facility] on above: Test not performed Basophil percentageOrdered B y: Arlette Storey on 08-06-2023 Basophil percentage 3.3 mg/dL 2.5-4.9 [facility] Chloride [Moles/Vol] 107 mmol/L 98-107 [facility] Glucose [Mass/Vol] 118 mg/dL 74-106 [facility] Comment on above: Fasting Glucose resu lt from 100 to 125 mg/dL suggests IMPAIRED HOMEOSTASIS per A.D.A. criteria. Potassium [Moles/Vol] 4.0 mmol/L 3.5-5.1 [facility] Sodium [Moles/Vol] 140 mmol/L 136-145 [facility] Laboratory - Chemistry and C hemistry - challengeOrdered By: Arlette Storey on 08-06-2023 CO2 [Moles/Vol] 28.0 mmol/L 21.0-32.0 [facility] Urea nitrogen/Creatinine [Mass ratio] 21.7 mg/mg 10-20 [facility] No Panel InformationOrdered By: Arlette Storey on 08-06-2023 Estimated GFR (MDRD) Amer 62 mL/min >60 [facility] Comment on above: GFR Calc Estimated GFR (MDRD) Non-Af Amer 51 mL/min >60 [facility] Comment on above: Non- GFR Calc Serum or plasma albumin michael urement (mass/volume)Ordered By: Arlette Storey on 08-06-2023 Albumin [Mass/Vol] 3.6 g/dL 3.2-5.0 [facility] Serum or plasma calcium michael urement (mass/volume)Ordered By: Arlette Storey on 08-06-2023 Calcium [Mass/Vol] 8.9 mg/dL 8.5-10.1 [facility] Serum or plasma creatinine m easurement (mass/volume)Ordered By: Arlette Storey on 08-06-2023 Creatinine [Mass/Vol] 1.15 mg/dL 0.55-1.02 [facility] Comment on above: The validity of the calculated GFR & GFRAA in patients over 70 years has not been determined. Clinical correlation is essential. Serum or plasma urea nitroge n measurement (mass/volume)Ordered By: Arlette Storey on 08-06-2023 Urea nitrogen [Mass/Vol] 25 mg/dL 7-18 [facility] Basophil percentageOrdered B y: Arlette Storey on 07-26-2023 Chloride [Moles/Vol] 107 mmol/L 98-107 [facility] Glucose [Mass/Vol] 114 mg/dL 74-106 [facility] Comment on above: Fasting Glucose resu lt from 100 to 125 mg/dL suggests IMPAIRED HOMEOSTASIS per A.D.A. criteria. Potassium [Moles/Vol] 4.2 mmol/L 3.5-5.1 [facility] Sodium [Moles/Vol] 140 mmol/L 136-145 [facility] Laboratory - Chemistry and C hemistry - challengeOrdered By: Arlette Storey on 07-26-2023 CO2 [Moles/Vol] 31.0 mmol/L 21.0-32.0 [facility] Urea nitrogen/Creatinine [Mass ratio] 23.0 mg/mg 10- [facility] No Panel InformationOrdered By: Arlette Storey on 07-26-2023 Estimated GFR (MDRD) Amer 50 mL/min >60 [facility] Comment on above: GFR Calc Estimated GFR (MDRD) Non-Af Amer 41 mL/min >60 [facility] Comment on above: Non- GFR Calc Serum or plasma calcium michael urement (mass/volume)Ordered By: Arlette Storey on 07-26-2023 Calcium [Mass/Vol] 9.7 mg/dL 8.5-10.1 [facility] Serum or plasma creatinine m easurement (mass/volume)Ordered By: Arlette Storey on 07-26-2023 Creatinine [Mass/Vol] 1.39 mg/dL 0.55-1.02 [facility] Comment on above: The validity of the calculated GFR & GFRAA in patients over 70 years has not been determined. Clinical correlation is essential. Serum or plasma urea nitroge n measurement (mass/volume)Ordered By: Arlette Storey on 07-26-2023 Urea nitrogen [Mass/Vol] 32 mg/dL 7-18 [facility] Thin prep Papanicolaou smear with manual screeningOrdered By: Arlette Storey on 07-26-2023 Thin prep Papanicolaou smear with manual screening 2 5-15 [facility] Calcium oxalate dihydrate cr ystals detection in stone by infrared spectroscopyOrdered By: Dr. Rios on 03-29-2023 Calcium oxalate dihydrate crystals Infrared spectroscopy Ql (Stone) 20 % [facility] Color of specimen determinat ionOrdered By: Dr. Rios on 03-29-2023 Color (Unsp spec) Brown [facility] Laboratory - Miscellaneous t estsOrdered By: Dr. Rios on 03-29-2023 Service comment (Unsp spec) [Interp] See comment [facility] Comment on above: Physician questions regarding Calculi Analysis contact [facility] at: [phone]. Calculi report will follow via computer, mail or inweaver delivery. Measurement of weight of sto neOrdered By: Dr. Rios on 03-29-2023 Weight (Stone) 2 mg [facility] No Panel InformationOrdered By: Dr. Rios on 03-29-2023 Stone Analysis (T) See comment [facility] Comment on above: Percentage (Represen ts the % composition) Stone Calcium Oxalate Monohydrate 50 % [facility] Stone Calcium Phosphate 30 % [facility] Comment on above: Calcium phosphate (h ydroxyl form) includes hydroxapatite, amorphous calcium phosphate, and whitlockite. Hydroxyapatite is the most common of the calcium phosphate salts found in the human kidney stones. Origin of StoneOrdered By: Elkin Rios on 03-29-2023 Origin Nom (Stone) Left Kidney [facility] Size of stoneOrdered By: Dr. Rios on 03-29-2023 Size (Stone) [Entitic vol] 2x2 mm [facility] Comment on above: Multiple pieces rece ived. Dimensions of the largest piece reported. Thin prep Papanicolaou smear with manual screeningOrdered By: Dr. Rios on 03-29-2023 Thin prep Papanicolaou smear with manual screening See comment [facility] Comment on above: Photograph will foll ow under a separate cover MEAGHAN SCREENINGon 02-06-2023 [facility] Absolute lymphocyte countOrd ered By: Dr. Ac on 12-25-2022 Lymphocytes Auto (Unsp spec) [#/Vol] 2.64 10*3/uL 0.83-4.51 [facility] Basophil percentageOrdered B y: Dr. Ac on 12-25-2022 Basophils/100 WBC (Bld) 0.6 % 0-1 [facility] Chloride [Moles/Vol] 106 mmol/L 98-107 [facility] Eosinophils/100 WBC (Bld) 2.4 % 0-5 [facility] Glucose [Mass/Vol] 111 mg/dL 74-106 [facility] Comment on above: Fasting Glucose resu lt from 100 to 125 mg/dL suggests IMPAIRED HOMEOSTASIS per A.D.A. criteria. Neutrophils (Bld) [#/Vol] 5.0 10*3/uL 2.0-7.7 [facility] Neutrophils/100 WBC (Bld) 57.7 % 47-70 [facility] Potassium [Moles/Vol] 4.5 mmol/L 3.5-5.1 [facility] Sodium [Moles/Vol] 141 mmol/L 136-145 [facility] WBC (Bld) [#/Vol] 8.7 10*3/uL 4.4-11.0 [facility] Basophil percentage 0 SEEN /hpf 0-5 [facility] Bilirubin Test strip Ql (U)O rdered By: Dr. Ac on 12-25-2022 Bilirubin Ql (U) Negative Negative [facility] Blood erythrocytes count (nu mber/volume)Ordered By: Dr. Ac on 12-25-2022 RBC (Bld) [#/Vol] 4.47 10*6/uL 4.2-5.4 [facility] Blood hemoglobin measurement (mass/volume)Ordered By: Dr. Ac on 12-25-2022 Hemoglobin (Bld) [Mass/Vol] 13.3 g/dL 12.0-15.0 [facility] Blood lymphocytes/100 leukoc ytesOrdered By: Dr. Ac on 12-25-2022 Lymphocytes/100 WBC (Bld) 30.5 % 19-41 [facility] Blood monocytes/100 leukocyt esOrdered By: Dr. Ac on 12-25-2022 Monocytes/100 WBC (Bld) 8.5 % 0-10 [facility] Blood platelet mean volumeOr dered By: Dr. Ac on 12-25-2022 Platelet mean volume (Bld) [Entitic vol] 10.3 fL 6.2-12.0 [facility] Determination of erythrocyte mean corpuscular volume (MCV)Ordered By: Dr. Ac on 12-25-2022 MCV (RBC) [Entitic vol] 93.3 fL 81-99 [facility] Hematocrit Auto (Bld) [Volum e fraction]Ordered By: Dr. Ac on 12-25-2022 Hematocrit (Bld) [Volume fraction] 41.7 % 37-47 [facility] Ketones Test strip Ql (U)Ord ered By: Dr. Ac on 12-25-2022 Ketones Ql (U) Negative Negative [facility] Laboratory - Chemistry and C hemistry - challengeOrdered By: Dr. Ac on 12-25-2022 CO2 [Moles/Vol] 27.0 mmol/L 21.0-32.0 [facility] Urea nitrogen/Creatinine [Mass ratio] 20.7 mg/mg 10-20 [facility] Laboratory - Hematology and Cell countsOrdered By: Dr. Ac on 12-25-2022 Erythrocyte distribution width (RBC) [Entitic vol] 41.3 fL 35.1-43.9 [facility] Erythrocyte distribution width (RBC) [Ratio] 12.0 % 11.6-14.6 [facility] Immature granulocytes/100 WBC (Bld) 0.300 % 0.0-0.9 [facility] Comment on above: IG% - Immature Granu locytes (promyelocytes, myelocytes and metamyelocytes) > 1% indicates that a LEFT SHIFT is Present. MCH (RBC) [Entitic mass] 29.8 pg 27.0-32.0 [facility] Nucleated RBC/100 WBC (Bld) [Ratio] 0 % 0-5 [facility] MCHC Auto (RBC) [Mass/Vol]Or dered By: Dr. Ac on 12-25-2022 MCHC (RBC) [Mass/Vol] 31.9 g/dL 32-36 [facility] Mucus LM Ql (Urine sed)Order ed By: Dr. Ac on 12-25-2022 Mucus Ql (Urine sed) 0 SEEN /hpf [facility] Nitrite Test strip Ql (U)Ord ered By: Dr. Ac on 12-25-2022 Nitrite Ql (U) Negative Negative [facility] No Panel InformationOrdered By: Dr. Ac on 12-25-2022 Estimated Creatinine Clearance Calc 35.49 ml/min [facility] Estimated GFR (MDRD) Amer 52 mL/min >60 [facility] Comment on above: GFR Calc Estimated GFR (MDRD) Non-Af Amer 43 mL/min >60 [facility] Comment on above: Non- GFR Calc Platelets bldOrdered By: Dr. Ac on 12-25-2022 Platelets (Bld) [#/Vol] 278 10*3/uL 150-450 [facility] Protein Test strip Ql (U)Ord ered By: Dr. Ac on 12-25-2022 Protein Ql (U) Negative Negative [facility] Serum or plasma calcium michael urement (mass/volume)Ordered By: Dr. Ac on 12-25-2022 Calcium [Mass/Vol] 9.5 mg/dL 8.5-10.1 [facility] Serum or plasma creatinine m easurement (mass/volume)Ordered By: Dr. Ac on 12-25-2022 Creatinine [Mass/Vol] 1.35 mg/dL 0.55-1.02 [facility] Comment on above: The validity of the calculated GFR & GFRAA in patients over 70 years has not been determined. Clinical correlation is essential. Serum or plasma urea nitroge n measurement (mass/volume)Ordered By: Dr. Ac on 12-25-2022 Urea nitrogen [Mass/Vol] 28 mg/dL 7-18 [facility] Squamous epithelial cells de tection in urine sediment by light microscopyOrdered By: Dr. Ac on 12-25-2022 Epithelial cells.squamous LM Ql (Urine sed) 0 SEEN /hpf 5-10 [facility] Thin prep Papanicolaou smear with manual screeningOrdered By: Dr. Ac on 12-25-2022 Thin prep Papanicolaou smear with manual screening 8 5-15 [facility] Urine blood detectionOrdered By: Dr. Ac on 12-25-2022 RBC Ql (U) Negative Negative [facility] RBC Ql (U) 0 SEEN /hpf 0-5 [facility] Urine clarityOrdered By: Dr. Ac on 12-25-2022 Clarity (U) Clear Clear [facility] Urine color determinationOrd ered By: Dr. Ac on 12-25-2022 Color (U) Yellow Yellow [facility] Urine glucose detectionOrder ed By: Dr. Ac on 12-25-2022 Glucose Ql (U) Normal mg/dl Normal [facility] Urine leukocyte esterase det ection by dipstickOrdered By: Dr. Ac on 12-25-2022 Leukocyte esterase Test strip Ql (U) Negative Negative [facility] Urine pHOrdered By: Dr. Kaleb flores on 12-25-2022 pH (U) 6.0 [pH] 5.0 - 8.0 [facility] Urine sediment bacteria coun t by microscopy (number/high power field)Ordered By: Dr. Ac on 12-25-2022 Bacteria LM.HPF (Urine sed) [#/Area] 1 /[HPF] None Seen [facility] Urine specific gravity measu rementOrdered By: Dr. Ac on 12-25-2022 Specific gravity (U) [Rel density] 1.020 1.002-1.030 [facility] Urobilinogen Auto test strip Ql (U)Ordered By: Dr. Ac on 12-25-2022 Urobilinogen Ql (U) Normal mg/dl Normal [facility] 24 hour urine calcium measur ement (mass/time)on 06-28-2022 Calcium (24H U) [Mass/Time] 378.0 mg/24 HR 42.0-353.0 [facility] Work Phone: 24 hour urine sodium measure ment (mass/time)on 06-28-2022 Sodium (24H U) [Mass/Time] 133 mmol/24h 40-220 [facility] Work Phone: 24 hour urine specimen volum e measurementon 06-28-2022 Specimen volume (24H U) 1.05 L [facility] Work Phone: Laboratory - Chemistry and C hemistry - challengeon 06-28-2022 pH (U) 1 [pH] [facility] Work Phone: Comment on above: Previous reported re sult: 4 Edited by: DAV on 06/29/22:0750 AMENDED REPORT 06/29/22 075 Calcium UR pH previously reported as: 4 H Sodium (U) [Moles/Vol] 127 mmol/L Not Establ. [facility] Work Phone: Laboratory - Specimen inform ationon 06-28-2022 Collection time (Sharonda) [Date/time] 24.0 HR 24.0-24.0 [facility] Work Phone: No Panel Informationon 06-28 Urine Calcium 36.0 Not Estab. [facility] Work Phone: Urine Chloride 24 Hour TNP [facility] Work Phone: Comment on above: Test not performed Urine Potassium TNP [facility] Work Phone: Comment on above: Test not performed [facility] Comment on above: Test not performed Thin prep Papanicolaou smear with manual screeningon 06-28-2022 Thin prep [facility]icolaou [facility] Comment on above: Test not performed Basophil percentageon 2021 Basophil percentage 2.6 mg[facility] Work Phone: Chloride [Moles/Vol] 106 mmol/L 98-[address] [facility] Work Phone: Glucose [Mass/Vol] 110 mg/dL 74-106 [facility] Work Phone: Comment on above: Fasting Glucose resu lt from 100 to 125 mg/dL suggests IMPAIRED HOMEOSTASIS per A.D.A. criteria. Potassium [Moles/Vol] 4.2 mmol/L 3.5-5.1 [facility] Work Phone: Sodium [Moles/Vol] 139 mmol/L 136-145 [facility] Work Phone: Laboratory - Chemistry and C hemistry - challengeon 06-26-2022 CO2 [Moles/Vol] 29.0 mmol/L 21.0-32.0 [facility] Work Phone: [phone] Urea nitrogen/Creatinine [Mass ratio] 17.7 mg/mg 10-20 [facility] Work Phone: No Panel Informationon 06-26 Estimated GFR (MDRD) Amer 64 mL/min >60 [facility] Work Phone: Comment on above: GFR Calc Estimated GFR (MDRD) Non-Af Amer 53 mL/min >60 [facility] Work Phone: Comment on above: Non- GFR Calc Serum or plasma albumin michael urement (mass/volume)on 06-26-2022 Albumin [Mass/Vol] 3.9 g/dL 3.2-5.0 [facility] Work Phone: Serum or plasma calcium michael urement (mass/volume)on 06-26-2022 Calcium [Mass/Vol] 9.1 mg/dL 8.5-10.1 [facility] Work Phone: [phone] Serum or plasma creatinine m easurement (mass/volume)on 06-26-2022 Creatinine [Mass/Vol] 1.13 mg/dL 0.55-1.02 [facility] Work Phone: Comment on above: The validity of the calculated GFR & GFRAA in patients over 70 years has not been determined. Clinical correlation is essential. Serum or plasma urea nitroge n measurement (mass/volume)on 06-26-2022 Urea nitrogen [Mass/Vol] 20 mg/dL 7-18 [facility] Work Phone: [phone] MEAGHAN SCREENINGon 02-06-2022 [facility] Neelam 02-17-2021 CNPN Telephone ([facility]) JUAN R GARCIA ([id number]) 1965 F Date Time Provider Department 02/17/21 SOFÍA RIVERA (RN) [facility] During your visit today, we recorded the following information about you: Sofía Rivear RN, RN 02/17/2021 1:08 PM Signed Left message regarding reminder for stress test on Saturday and given instructions Allergies As of Date: 02/17/2021 Noted Allergy Reaction NITROFURANTOIN 10/16/2016 14 - Other: See Comments Comments: Chest pain, sob, and body aches YEAST, DRIED 11/27/2005 16 - Unknown Date Reviewed: 02/03/2021 Reviewed by: Alejo Fletcher - Fully Assessed Reason for Visit: Reminder Call [[id number]] Prescriptions as of 02/17/2021 Sig: CLOBETASOL 0.05 [...] Encounter Status:Closed by SOFÍA RIVERA on 02/17/21 [facility] 06-22-2020 [facility] Telephone ([facility]) JUAN R GARCIA ( ) [...] 2020 MRN: TIME: 5:00 PM PAGER/CONTACT #: [id number] Allergies As of Date: 06/22/2020 Noted Allergy [...] Status:Closed by JOSE LUIS MARINELLI on 06/22/20 [facility] Vital Signs Date Time Vital Sign Value Performing Clinician Facility 03-09-2025 11:23-0400 Body height 157.[address] Alejo Fletcher MD Work Phone: [facility] 03-09-2025 11:23-0400 Body mass index (BMI) [Ratio] 21.9 kg/m2 Dr. Alejo Fletcher MD Work Phone: [facility] 03-09-2025 11:23-0400 Body weight 54.[address] Alejo Fletcher MD Work Phone: [facility] 03-09-2025 11:23-0400 Diastolic blood pressure 72 mm[Hg] Dr. Alejo Fletcher MD Work Phone: [facility] 03-09-2025 11:23-0400 Heart rate 55 /min Dr. Alejo Fletcher MD Work Phone: [facility] 03-09-2025 11:23-0400 Respiratory rate 18 /min Dr. Alejo Fletcher MD Work Phone: [facility] 03-09-2025 11:23-0400 SaO2% (BldA) [Mass fraction] 98 % Dr. Alejo Fletcher MD Work Phone: [facility] 03-09-2025 11:23-0400 Systolic blood pressure 130 mm[Hg] Dr. Alejo Fletcher MD Work Phone: [facility] 12-23-2024 09:02-0500 Body mass index (BMI) [Ratio] 22.08 kg/m2 Tana Eron SHOE CLERK.[employer]ET IN[employer] Work Phone: [facility] 12-23-2024 09:02-0500 Body temperature 97.5 [degF] Tana Eron SHOE CLERK.[employer]ET INST[employer]ER Work Phone: [facility] 12-23-2024 09:02-0500 Body weight 53.43 kg Tana Eron SHOE CLERK.[employer] INST[employer] Work Phone: [facility] 12-23-2024 09:02-0500 Diastolic blood pressure 62 mm[Hg] Tana Eron SHOE CLERK.[employer]IN[employer] INST[employer]ER Work Phone: [facility] 12-23-2024 09:02-0500 Heart rate 71 /min Tana Eron SHOE CLERK.[employer] INST[employer]ER Work Phone: [facility] 12-23-2024 09:02-0500 Respiratory rate 16 /min Tana Eron SHOE CLERK.[employer]ET INST[employer]ER Work Phone: [facility] 12-23-2024 09:02-0500 Systolic blood pressure 116 mm[Hg] Tana Eron SHOE CLERK.[employer]INET INST[employer]ER Work Phone: [facility] 11-25-2024 09:23-0500 Body height 155.6 cm Tanya Brar MD Work Phone: [facility] 11-25-2024 09:23-0500 Body mass index (BMI) [Ratio] 20.99 kg/m2 Tanya Brar MD Work Phone: [facility] 11-25-2024 09:23-0500 Body weight 50.8 kg Tanya Brar MD Work Phone: [facility] 11-25-2024 09:23-0500 Diastolic blood pressure 62 mm[Hg] Tanya Brar MD Work Phone: [facility] 11-25-2024 09:23-0500 Systolic blood pressure 124 mm[Hg] Tanya Brar MD Work Phone: [facility] 11-07-2024 13:52-0500 Body temperature 97.8 [degF] Dr. Alejo Fletcher MD Work Phone: [phone] [place] [address] 11-07-2024 13:52-0500 Diastolic blood pressure 78 mm[Hg] Dr. Alejo Fletcher MD Work Phone: [phone] [place] [address] 11-07-2024 13:52-0500 Heart rate 78 /min Dr. Alejo Fletcher MD Work Phone: [phone])[phone] [place] [address] 11-07-2024 13:52-0500 Respiratory rate 16 /min Dr. Alejo Fletcher MD Work Phone: [phone] [place] [address] 11-07-2024 13:52-0500 SaO2% (BldA) [Mass fraction] 100 % Dr. Alejo Fletcher MD Work Phone: [phone] [place] [address] 11-07-2024 13:52-0500 Systolic blood pressure 129 mm[Hg] Dr. Alejo Fletcher MD Work Phone: [phone] [place] [address] 11-07-2024 10:33-0500 Body height 157.[address] Alejo Fletcher MD Work Phone: [phone] [place] [address] 11-07-2024 10:33-0500 Body mass index (BMI) [Ratio] 21.1 kg/m2 Dr. Alejo Fletcher MD Work Phone: [facility] 11-07-2024 10:33-0500 Body weight 52.[address] Alejo Fletcher MD Work Phone: [facility] 07-30-2024 09:15-0400 Diastolic blood pressure 63 mm[Hg] Marcial Davis MD Work Phone: [facility] 07-30-2024 09:15-0400 Heart rate 54 /min Marcial Davis MD Work Phone: [facility] 07-30-2024 09:15-0400 SaO2% (BldA) [Mass fraction] 97 % Marcial Davis MD Work Phone: [facility] 07-30-2024 09:15-0400 Systolic blood pressure 134 mm[Hg] Marcial Davis MD Work Phone: [facility] 07-30-2024 09:01-0400 Respiratory rate 16 /min Marcial Davis MD Work Phone: [facility] 07-30-2024 07:34-0400 Body mass index (BMI) [Ratio] 21.77 kg/m2 Marcial Davis MD Work Phone: [facility] 07-30-2024 07:34-0400 Body temperature 97.7 [degF] Marcial Davis MD Work Phone: [facility] 07-30-2024 07:34-0400 Body weight 54 kg Marcial Davis MD Work Phone: [facility] 07-24-2024 08:33-0400 Body height 157.5 cm Tana Eron SHOE CLERK.C[employer]INET INSTALLER Work Phone: [facility] 07-24-2024 08:33-0400 Body mass index (BMI) [Ratio] 21.77 kg/m2 Tana Eron SHOE CLERK.C[employer]INET INSTALLER Work Phone: [facility] 07-24-2024 08:33-0400 Body temperature 97.5 [degF] Tana Eron SHOE CLERK.CABINET INSTALLER Work Phone: [facility] 07-24-2024 08:33-0400 Body weight 53.98 kg Tana Eron SHOE CLERK.C[employer]INET INSTALLER Work Phone: [facility] 07-24-2024 08:33-0400 Diastolic blood pressure 83 mm[Hg] Tana Eron SHOE CLERK.C[employer]INET INSTALLER Work Phone: [facility] 07-24-2024 08:33-0400 Heart rate 71 /min Tana Eron SHOE CLERK.CABINET INSTALLER Work Phone: [facility] 07-24-2024 08:33-0400 SaO2% (BldA) [Mass fraction] 98 % Tana Eron SHOE CLERK.C[employer]INET INSTALLER Work Phone: [facility] 07-24-2024 08:33-0400 Systolic blood pressure 143 mm[Hg] Tana Eron SHOE CLERK.C[employer]INET INSTALLER Work Phone: [facility] 07-01-2024 20:14-0400 Body mass index (BMI) [Ratio] 22.12 kg/m2 Alejo Fletcher MD Work Phone: [facility] 07-01-2024 20:14-0400 Body temperature 98.01 [degF] Alejo Fletcher MD Work Phone: [facility] 07-01-2024 20:14-0400 Body weight 53.98 kg Alejo Fletcher MD Work Phone: [facility] 07-01-2024 20:14-0400 Diastolic blood pressure 62 mm[Hg] Alejo Fletcher MD Work Phone: [facility] 07-01-2024 20:14-0400 Heart rate 60 /min Alejo Fletcher MD Work Phone: [facility] 07-01-2024 20:14-0400 Respiratory rate 16 /min Alejo Fletcher MD Work Phone: [facility] 07-01-2024 20:14-0400 Systolic blood pressure 118 mm[Hg] Alejo Fletcher MD Work Phone: [facility] 01-27-2024 07:58-0400 Body weight 54.88 kg Alejo Fletcher MD Work Phone: [facility] 01-27-2024 07:58-0400 Diastolic blood pressure 86 mm[Hg] Alejo Fletcher MD Work Phone: [facility] 01-27-2024 07:58-0400 Heart rate 56 /min Alejo Fletcher MD Work Phone: [facility] 01-27-2024 07:58-0400 Respiratory rate 16 /min Alejo Fletcher MD Work Phone: [facility] 01-27-2024 07:58-0400 Systolic blood pressure 118 mm[Hg] Alejo Fletcher MD Work Phone: [facility] 01-15-2024 18:49-0500 Body height 156.2 cm Alejo Fletcher MD Work Phone: [facility] 01-15-2024 18:49-0500 Body weight 53.07 kg Alejo Fletcher MD Work Phone: [facility] 01-15-2024 18:49-0500 Diastolic blood pressure 70 mm[Hg] Alejo Fletcher MD Work Phone: [facility] 01-15-2024 18:49-0500 Heart rate 70 /min Alejo Fletcher MD Work Phone: [facility] 01-15-2024 18:49-0500 Respiratory rate 14 /min Alejo Fletcher MD Work Phone: [facility] 01-15-2024 18:49-0500 Systolic blood pressure 114 mm[Hg] Alejo Fletcher MD Work Phone: [facility] 03-28-2023 09:42-0400 Body temperature 97.3 [degF] [facility] 03-28-2023 09:42-0400 Diastolic blood pressure 88 mm[Hg] [facility] 03-28-2023 09:42-0400 Heart rate 68 /min [facility] 03-28-2023 09:42-0400 Respiratory rate 16 /min [facility] 03-28-2023 09:42-0400 SaO2% (BldA) [Mass fraction] 98 % [facility] 03-28-2023 09:42-0400 Systolic blood pressure 133 mm[Hg] [facility] 03-28-2023 07:09-0400 Body height 162.56 cm [facility] 03-28-2023 07:09-0400 Body mass index (BMI) [Ratio] 20.5 kg/m2 [facility] 03-28-2023 07:09-0400 Body weight 54.43 kg [facility] 02-07-2023 16:51-0400 Body temperature 98.3 [degF] [facility] 02-07-2023 16:51-0400 Diastolic blood pressure 80 mm[Hg] [facility] 02-07-2023 16:51-0400 Heart rate 67 /min [facility] 02-07-2023 16:51-0400 Respiratory rate 16 /min [facility] 02-07-2023 16:51-0400 SaO2% (BldA) [Mass fraction] 98 % [facility] 02-07-2023 16:51-0400 Systolic blood pressure 130 mm[Hg] [facility] 02-07-2023 15:30-0400 Inhaled oxygen flow rate 2 L/min [facility] 02-07-2023 13:05-0400 Body height 157.48 cm [facility] 02-07-2023 13:05-0400 Body mass index (BMI) [Ratio] 22.5 kg/m2 [facility] 02-07-2023 13:05-0400 Body weight 55.8 kg [facility] 02-06-2023 08:43-0400 Body weight 57.15 kg Tanya Brar MD Work Phone: [facility] 02-06-2023 08:43-0400 Diastolic blood pressure 86 mm[Hg] Tanya Brar MD Work Phone: [facility] 02-06-2023 08:43-0400 Systolic blood pressure 128 mm[Hg] Tanya Brar MD Work Phone: [facility] 12-25-2022 06:39-0500 Diastolic blood pressure 68 mm[Hg] [facility] 12-25-2022 06:39-0500 Heart rate 68 /min [facility] 12-25-2022 06:39-0500 Respiratory rate 18 /min [facility] 12-25-2022 06:39-0500 SaO2% (BldA) [Mass fraction] 98 % [facility] 12-25-2022 06:39-0500 Systolic blood pressure 118 mm[Hg] [facility] 12-25-2022 04:14-0500 Body height 157.48 cm [facility] 12-25-2022 04:14-0500 Body mass index (BMI) [Ratio] 22.3 kg/m2 [facility] 12-25-2022 04:14-0500 Body temperature 97.5 [degF] [facility] 12-25-2022 04:14-0500 Body weight 55.3 kg [facility] 02-05-2022 10:22-0400 Body height 156.2 cm Tanya Brar MD Work Phone: [facility] 02-05-2022 10:22-0400 Body weight 50.8 kg Tanya Brar MD Work Phone: [facility] 02-05-2022 10:22-0400 Diastolic blood pressure 76 mm[Hg] Tanya Brar MD Work Phone: [facility] 02-05-2022 10:22-0400 Systolic blood pressure 122 mm[Hg] Tanya Brar MD Work Phone: [facility] 02-03-2022 10:22-0400 Body height 156 cm Alejo Fletcher MD Work Phone: [facility] 02-03-2022 10:22-0400 Body weight 50.35 kg Alejo Fletcher MD Work Phone: [facility] 02-03-2022 10:22-0400 Diastolic blood pressure 76 mm[Hg] Aleoj Fletcher MD Work Phone: [facility] 02-03-2022 10:22-0400 Heart rate 72 /min Alejo Fletcher MD Work Phone: [facility] 02-03-2022 10:22-0400 Respiratory rate 12 /min Alejo Fletcher MD Work Phone: [facility] 02-03-2022 10:22-0400 Systolic blood pressure 110 mm[Hg] Alejo Fletcher MD Work Phone: [facility] Encounters Encounter Date Encounter Type Care Provider Facility Start: 08-03-2025 End: 08-03-[address] Chavo Mendosa MD Work Phone: -Laboratory Phy Office 3rd Flr Start: 08-03-2025 End: 08-03-[address] Chavo Mendosa MD -Laboratory Phy Office 3rd Flr Start: 08-03-2025 End: 08-03-2025 ambulatory Chavo Mendosa Facility:[facility] Start: 07-26-2025 End: 07-26-[address] Chavo Mendosa MD Work Phone: -Ultrasound [facility] Start: 07-26-2025 End: 07-26-[address] Chavo Mendosa MD -Ultrasound [facility] Work Phone: Start: 07-26-2025 End: 07-26-2025 ambulatory Chavo Mendosa Facility:[facility] Start: 06-22-2025 End: 06-22-[address] Chavo Mendosa MD Work Phone: -Laboratory Specimen Start: 06-22-2025 End: 06-22-[address] Chavo Mendosa MD -Laboratory Specimen Work Phone: Start: 06-21-2025 End: 06-22-[address] Chavo Mendosa MD Work Phone: -Cat Scan [facility] Start: 06-21-2025 End: 06-21-[address] Chavo Menodsa MD -Cat Scan [facility] Work Phone: Start: 06-21-2025 End: 06-21-2025 ambulatory Chavo Emanuel Mendosa Facility:[facility] Start: 05-11-2025 Non-patient / Non-visit Dr. Avelina keita MD -[facility] Work Phone: Start: 04-01-2025 ambulatory Anna Ragsdale Facility:[facility] Start: 04-01-2025 Non-patient / Non-visit Dr. Anna sigala MD -[facility] Start: 04-01-2025 End: 04-01-[address] Alejo Fletcher MD Work Phone: [facility] Work Phone: Start: 04-01-2025 End: 04-01-[address] Anna Ragsdale MD -Cardiovascular Services Work Phone: Start: 04-01-2025 End: 04-01-2025 ambulatory Anna Ragsdale Facility:[facility] Start: 03-25-2025 End: 03-25-[address] Alejo Fletcher MD Work Phone: [facility] Work Phone: Start: 03-25-2025 End: 03-25-[address] Arlette Storey DO -Laboratory Work Phone: Start: 03-25-2025 End: 03-25-2025 ambulatory Arlette Storey Facility:[facility] Start: 03-09-2025 End: 03-09-[address] Anna Ragsdale MD -[facility] Work Phone: Start: 03-09-2025 End: 03-09-2025 ambulatory Chavo Emanuel Gabrielok Facility:[facility] Start: 02-12-2025 End: 02-12-[address] Alejo Fletcher MD Work Phone: [facility] Work Phone: Start: 02-12-2025 End: 02-12-[address] Chavo Mendosa MD -Cat Scan, [facility] Work Phone: Start: 02-12-2025 End: 02-12-2025 ambulatory [facility] Facility:[facility] Start: 01-27-2025 End: 01-27-[address] Alejo Fletcher MD Work Phone: [facility] Work Phone: Start: 01-27-2025 End: 01-27-[address] Chavo Mendosa MD -Laboratory, Phy Office 3rd Flr Start: 01-27-2025 End: 01-27-2025 ambulatory [facility] Facility:[facility] Start: 01-19-2025 End: 01-19-2025 Chart abstracting Alejo Fletcher MD Work Phone: [facility] Comment on above: Outside Rsku-Ykq-WHN Ordered Start: 01-12-2025 End: 01-12-[address] Alejo Fletcher MD Work Phone: [facility] Work Phone: Start: 01-12-2025 End: 01-12-[address] Arlette Storey DO -Laboratory Work Phone: Start: 01-12-2025 End: 01-12-2025 ambulatory [facility] Facility:[facility] Start: 01-09-2025 End: 01-09-[address] Alejo Fletcher MD Work Phone: [facility] Work Phone: Start: 01-09-2025 End: 01-09-[address] Arlette Storey DO -Laboratory Work Phone: Start: 01-09-2025 End: 01-09-2025 ambulatory [facility] Facility:[facility] Start: 01-06-2025 End: 01-06-2025 Chart abstracting Jimmy Dillard MA [facility] Comment on above: Results (Outside lab s /) Start: 01-04-2025 End: 01-04-[address] Alejo Fletcher MD Work Phone: [facility] Work Phone: Start: 01-04-2025 End: 01-04-[address] Arlette Storey DO -Laboratory Work Phone: Start: 01-04-2025 End: 01-04-2025 Chart abstracting Jimmy Dillard MA [facility] Comment on above: Results (Outside/CT) Start: 01-04-2025 End: 01-04-2025 ambulatory [facility] Facility:[facility] Start: 01-01-2025 End: 01-01-[address] Alejo Fletcher MD Work Phone: [facility] Work Phone: Start: 01-01-2025 End: 01-01-[address] Avelina Rios MD -Cat Scan, [facility] Work Phone: Start: 01-01-2025 End: 01-01-2025 ambulatory Avelina Rios Facility:[facility] Start: 12-31-2024 ambulatory Arlette Lee Facility: [facility] Start: 12-29-2024 End: 12-29-2024 Chart abstracting Alejo Fletcher MD Work Phone: [facility] Comment on above: Outside Nephrology Start: 12-25-2024 End: 12-25-2024 Chart abstracting Alejo Fletcher MD Work Phone: [facility] Comment on above: Outside Cmxs-Oig-FVT Ordered Start: 12-23-2024 End: 01-25-2025 Telephone encounter Tana Peterson APRN.CABINET INSTALLER Work Phone: General Surgery Comment on above: Orders Start: 12-23-2024 End: 12-23-2024 ambulatory ALEJO FLETCHER Facility:[facility] Start: 12-23-2024 End: 12-23-2024 Patient encounter procedure Tana Peterson APRN.CABINET INSTALLER Work Phone: General Surgery Comment on above: Diarrhea, unspecifie d type (Primary Dx) Start: 12-23-2024 End: 12-23-[address] Arlette Storey DO -Laboratory Work Phone: Start: 12-23-2024 End: 12-23-2024 ambulatory Arlette Storey Facility:[facility] Start: 11-25-2024 End: 11-25-2024 ambulatory ALEJO FLETCHER Facility:[facility] Start: 11-25-2024 End: 11-25-2024 Patient encounter procedure Tanya Brar MD Work Phone: OB/Gynecology Comment on above: Encounter for gyneco logical examination (general) (routine) without abnormal findings (Primary Dx); Encounter for screening mammogram for breast cancer Start: 11-25-2024 End: 11-25-2024 Patient encounter status Tanya Brar MD Work Phone: [facility] Start: 11-07-2024 End: 11-07-2024 Emergency department patient visit Dr. Pooja Ac DO -Emergency Department Work Phone: Start: 10-15-2024 End: 10-15-2024 ambulatory Alejo Fletcher MD Work Phone: [facility] Comment on above: Motion Sickness Patc h for upcoming cruise Start: 08-07-2024 End: 08-07-2024 ambulatory ALEJO FLETCHER Facility:[facility] Start: 08-07-2024 End: 08-07-2024 Patient encounter procedure Tana Peterson APRN.CABINET INSTALLER Work Phone: General Surgery Comment on above: Collagenous colitis (Primary Dx) Start: 07-30-2024 End: 07-30-2024 E-mail encounter from caregiver Nurse Eric [facility] Work Phone: General Surgery Start: 07-30-2024 End: 07-30-2024 Follow-up encounter Nurse [facility] Work Phone: General Surgery Comment on above: Colonoscopy follow-u p Start: 07-30-2024 End: 07-30-2024 ambulatory ALEJO FLETCHER Facility:[facility] Start: 07-30-2024 End: 07-30-2024 Subsequent hospital visit by physician Marcial Davis MD Work Phone: Ambulatory Surgery Comment on above: Diarrhea, unspecifie d type [R19.7] Start: 07-24-2024 End: 07-24-2024 ambulatory TANA PETERSON Facility:[facility] Start: 07-24-2024 End: 07-24-2024 Patient encounter procedure Tana Peterson SHOE CLERKANABELL Work Phone: General Surgery Comment on above: Screen for colon can cer (Primary Dx); Diarrhea, unspecified type Start: 07-08-2024 End: 07-14-2024 Telephone encounter Alejo Fletcher MD Work Phone: [facility] Comment on above: Question; Results Start: 07-06-2024 End: 07-07-2024 Documentation procedure Mammography Coordinator [facility] Department Start: 07-06-2024 End: 07-07-2024 Letter encounter Mammography Coordinator [facility] Start: 07-03-2024 End: 07-03-2024 ambulatory ALEJO FLETCHER Facility:[facility] Start: 07-03-2024 End: 07-03-2024 Subsequent hospital visit by physician Screen Mammo [facility] Mammogram Comment on above: Encounter for screen ing mammogram for breast cancer [Z12.31] Start: 07-01-2024 End: 07-01-2024 Patient encounter procedure Alejo Fletcher MD Work Phone: [facility] Comment on above: Epigastric pain (Prema sukhwinder Dx); Diarrhea, unspecified type Start: 07-01-2024 End: 07-01-2024 ambulatory ALEJO FLETCHER Facility:[facility] Start: 06-28-2024 End: 06-29-2024 Refill Tanya Brar MD Work Phone: OB/Gynecology Comment on above: Refill Request Start: 03-11-2024 ambulatory Alejo holman MD Work Phone: Internal Medicine [facility] [place] Start: 01-28-2024 Telephone encounter Alejo Fletcher MD Work Phone: [facility] Comment on above: Results Start: 01-27-2024 End: 01-27-2024 Subsequent hospital visit by physician [facility] (I-Stat) Work Phone: Cat Scan Comment on above: Ex-smoker [Z87.891] Start: 01-27-2024 Telephone encounter Xochilt frias PA-C Work Phone: [facility] Comment on above: Results Start: 01-27-2024 End: 01-27-2024 Patient encounter procedure Alejo Fletcher MD Work Phone: [facility] Comment on above: AK (actinic keratosi s) Start: 01-16-2024 Telephone encounter Alejo Fletcher MD Work Phone: [facility] [place] Comment on above: Results Start: 01-15-2024 End: 01-15-2024 Patient encounter procedure Alejo Fletcher MD Work Phone: [facility] Comment on above: Well adult exam (Prema sukhwinder Dx); Elevated hemoglobin A1c; Stage 3a chronic kidney disease (HCC); Pulmonary emphysema, unspecified emphysema type (HCC); Irritable bowel syndrome with diarrhea; Encounter for lipid screening for cardiovascular disease; Neoplasm of uncertain behavior of skin of chest Start: 01-15-2024 End: 01-15-2024 Patient encounter status Alejo Fletcher MD Work Phone: [facility] Work Phone: Start: 10-28-2023 End: 10-28-2023 ambulatory [facility] Work Phone: Start: 10-28-2023 End: 10-28-2023 Patient encounter procedure [facility]-Radiology, [place] Work Phone: Start: 08-09-2023 End: 08-09-2023 Patient encounter procedure [facility]-Laboratory, Specimen Work Phone: Start: 08-08-2023 End: 08-08-2023 Patient encounter procedure [facility]-Laboratory, Specimen Work Phone: Start: 08-06-2023 Chart abstracting Alejo lombardo MD Work Phone: [facility] Comment on above: ext document (labs) Start: 08-06-2023 End: 08-06-2023 Patient encounter procedure [facility]-Laboratory Work Phone: Start: 07-26-2023 Chart abstracting Alejo lombardo MD Work Phone: [facility] Start: 07-26-2023 End: 07-26-2023 ambulatory [facility] Work Phone: Start: 07-26-2023 End: 07-26-2023 Patient encounter procedure [facility]-Laboratory Work Phone: Start: 04-17-2023 Chart abstracting Alejo lombardo MD Work Phone: [facility] Comment on above: Results Start: 04-02-2023 End: 04-02-2023 ambulatory [facility] Work Phone: Start: 04-02-2023 End: 04-02-2023 Patient encounter procedure [facility]-Cat Scan, [facility] Start: 03-28-2023 End: 03-28-2023 Admission to same day surgery center [facility] Start: 02-27-2023 Chart abstracting Alejo lombardo MD Work Phone: [facility] Comment on above: XRay Report Start: 02-22-2023 End: 02-22-2023 Patient encounter procedure [facility] [place] Start: 02-14-2023 Chart abstracting Alejo lombardo MD Work Phone: [facility] Comment on above: Results Start: 02-07-2023 Documentation procedure Mammog nichol Coordinator [facility] Start: 02-07-2023 Letter encounter Mammography Coordinator [facility] Department Start: 02-07-2023 Telephone encounter Jia myers APRN.CNP Work Phone: [facility] Comment on above: Results Start: 02-07-2023 End: 02-07-2023 Admission to same day surgery center [facility] Start: 02-07-2023 End: 02-07-2023 ambulatory [facility] Work Phone: Start: 02-06-2023 End: 02-06-2023 Patient encounter procedure Tanya Brar MD Work Phone: OB/Gynecology Comment on above: Encounter for gyneco logical examination with abnormal finding (Primary Dx); Encounter for screening mammogram for breast cancer; Lichen sclerosus et atrophicus Start: 02-06-2023 End: 02-06-2023 Patient encounter status Tanya Brar MD Work Phone: OB/Gynecology Start: 02-06-2023 End: 02-06-2023 Subsequent hospital visit by physician Screen Mammo [facility] Mammogram Comment on above: Encounter for screen ing mammogram for malignant neoplasm of breast [Z12.31] Start: 01-18-2023 End: 01-18-2023 ambulatory [facility] Work Phone: Start: 01-18-2023 End: 01-18-2023 Patient encounter procedure [facility] [place] Start: 12-25-2022 End: 12-25-2022 Emergency department patient visit [facility]-Emergency Department Start: 08-10-2022 Telephone encounter Jimmy Dillard MA [facility] Comment on above: Appointment Start: 08-09-2022 ambulatory Alejo holman MD Work Phone: [facility] Comment on above: Stop Smoking assitsa nce Start: 06-28-2022 End: 06-28-2022 ambulatory [facility] Work Phone: Start: 06-28-2022 End: 06-28-2022 Patient encounter procedure [facility]-Laboratory, Specimen Start: 06-27-2022 End: 06-27-2022 Patient encounter procedure [facility]-Laboratory, Specimen Start: 06-26-2022 End: 06-26-2022 Patient encounter procedure [facility]-Laboratory Start: 04-02-2022 Telephone encounter Alejo Fletcher MD Work Phone: [facility] Comment on above: Patient Question Start: 02-06-2022 Documentation procedure Mammog nichol Coordinator [facility] Start: 02-06-2022 Letter encounter Mammography Coordinator [facility] Department Start: 02-06-2022 Telephone encounter Alejo Fletcher MD Work Phone: [facility] Comment on above: Results Start: 02-06-2022 End: 02-06-2022 Patient encounter status Screen Wstr Mammogram Start: 02-06-2022 End: 02-06-2022 Subsequent hospital visit by physician Screen Mammo [facility] Mammogram Comment on above: [...] encounter procedure Alejo Fletcher MD Work Phone: [facility] Comment on above: Well adult exam (Prema sukhwinder Dx); Pulmonary emphysema, unspecified emphysema type (HCC); Stage 3 chronic kidney disease, unspecified whether stage 3a or 3b CKD (HCC); Irritable bowel syndrome with diarrhea; Lung nodule; Ex-smoker; Lung nodules; Screening for diabetes mellitus (DM); Encounter for lipid screening for cardiovascular disease Start: 02-03-2022 End: 02-03-2022 Patient encounter status Alejo Fletcher MD Work Phone: [facility] Start: 10-29-2017 Patient encounter status Gianna Fletcher MD Work Phone: [facility] Work Phone: Procedures Date Procedure Procedure Detail Performing Clinician Start: 07-26-2025 Ultrasound elastogra phy of liver Dr. Chavo Mendosa MD Work Phone: Start: 06-21-2025 Computed tomography of abdomen and pelvis with contrast Dr. Chavo Mendosa MD Work Phone: Start: 04-01-2025 Radionuclide imaging of perfusion of [...] HCV Quant by PCR testing - HCVPCR #[id number] Non Reactive: < 0.8 Equivocal: >/= 0.8 [...] w /collj spec when pfrmd Tana Peterson SHOE CLERK.CABINET INSTALLER Work Phone: Start: 07-30-2024 Colonoscopy Nurse Wstr [...] Start: 02-06-2023 End: 02-06-2023 Mammography Jia Alvarado SHOE CLERK.CABINET INSTALLER Work Phone: Start: 01-18-2023 Diagnostic radiograp hy [...] Screening for malign ant neoplasm of colon [facility] Start: 01-19-2029 Lipid panel Lipid Screening [facility] Start: 01-09-2029 Pneumococcal vaccination Pneum ococcal Vaccine (1 of 2 - PCV) [facility] Comment on above: Postponed from 12/05 (Postponed To Appropriate Date) Start: 02-03-2027 Lipid 1996 panel - S alla or Plasma Lipid Screening [facility] Start: 02-03-2027 Lipid panel Lipid Screening [facility] Start: 02-03-2027 LIPID SCREEN LIPID SCREEN [facility] Start: 01-19-2027 Diabetes Screening Diabetes Screenin g [facility] Start: 02-03-2026 LIPID SCREEN LIPID SCREEN [facility] Start: 01-17-2026 Urine microalbumin profile [facility] Start: 11-26-2025 End: 11-26-2025 Patient encounter procedure Mammogram Comment on above: mammo annual Start: 10-27-2025 Colonoscopy COLONOSCOPY [facility] Start: 10-27-2025 COLORECTAL CANCER SCREENING COLORECTAL CANCER SCREENING [facility] Start: 10-27-2025 Screening for malign ant neoplasm of colon [facility] Start: 07-03-2025 Screening for malign ant neoplasm of breast Mammogram Screening [facility] Start: 07-01-2025 Annual PCP Team Aquatics Specialist greg Disease Visit Annual PCP Team Chronic Disease Visit [facility] Start: 02-03-2025 DIABETES SCREEN DIABETES SCREEN [facility] Start: 02-03-2025 Diabetes Screening Diabetes Screenin g [facility] Start: 01-26-2025 Annual PCP Team Aquatics Specialist greg Disease Visit Annual PCP Team Chronic Disease Visit [facility] Start: 01-19-2025 Complete blood count Hemoglobin/Santiago tocrit [facility] Start: 01-19-2025 Creatinine measurement Serum Creatin ine [facility] Start: 01-15-2025 End: 01-15-2025 Patient encounter procedure 01/15/2025 8:00 AM EST Office [facility] [place] [address] Alejo Fletcher MD [address] [place] [address] Physical [facility] Comment on above: Physical Start: 01-14-2025 Annual PCP Team Aquatics Specialist greg Disease Visit Annual PCP Team Chronic Disease Visit [facility] Start: 01-14-2025 Covid-19 Vaccine ( season) Covid-19 Vaccine ( season) [facility] Comment on above: Postponed from 07/12 (Declined at this time) Start: 01-14-2025 RSV Vaccine (1 - 1-d ose 60+ series) RSV Vaccine (1 - 1-dose 60+ series) [facility] Comment on above: Postponed from 12/05 (Insurance Coverage) Start: 01-14-2025 RSV Vaccine (1 - Ris k 60-74 years 1-dose series) RSV Vaccine (1 - Risk 60-74 years 1-dose series) [facility] Comment on above: Postponed from 12/05 (Insurance Coverage) Start: 01-14-2025 Shingrix Vaccine (1 of 2) Morgan grix Vaccine (1 of 2) [facility] Comment on above: Postponed from 12/05 (Insurance Coverage) Start: 11-25-2024 End: 11-25-2024 Patient encounter procedure OB/Gynecology Comment on above: annual Start: 11-10-2024 Depression Assessment Depression Ass essment [facility] Comment on above: Postponed from 11/11 (Declined at this time) Start: 11-07-2024 [facility] Start: 08-07-2024 End: 08-07-2024 Patient encounter procedure 08/07/2024 8:00 AM EDT Office Visit General Surgery [address] [place], [place] [id number] Tana Peterson APRN.CABINET INSTALLER [address] [place] [address] 07-30 Colon follow up General Surgery Comment on above: 07-30 Colon follow u p Start: 07-30-2024 End: 07-30-2024 Patient encounter procedure 07/30/2024 8:00 AM EDT Appointment Ambulatory Surgery [address] [place] [address] Marcial Davis MD [address] [place] [address] 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 Ambulatory Surgery Comment on above: 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 Start: 07-24-2024 End: 07-24-2024 Patient encounter procedure 07/24/2024 8:30 AM EDT Office Visit General Surgery [address] [place] [address] Tana Peterson APRN.CABINET INSTALLER [address] [place] [address] Fecal WBC's positive General Surgery Comment on above: Fecal WBC's positive Start: 07-12-2024 Covid-19 Vaccine ( season) Covid-19 Vaccine ( season) [facility] Start: 07-12-2024 Covid-19 Vaccine ( season) Covid-19 Vaccine ( season) [facility] Start: 07-12-2024 Influenza vaccination C [facility] Start: 07-03-2024 End: 07-03-2024 Patient encounter procedure 07/03/2024 7:30 AM EDT Appointment Mammogram [address] [place] [address] Mammogram Start: 07-01-2024 End: 07-01-2024 Patient encounter procedure 07/01/2024 7:20 PM EDT Office Visit Family [facility] [address] [place] [address] Alejo Fletcher MD [address] [place] [address] Chronic Diarrhea and lightheadedness [facility] [place] Comment on above: Chronic Diarrhea and lightheadedness Start: 07-01-2024 End: 09-30-2024 Amylase [Enzymatic activity/volume] in Serum or Plasma AMYLASE Lab Routine Epigastric pain Expected: 07/01/2024, Expires: 09/30/2024 [facility] Comment on above: Expected: 07/01/2024 , Expires: 09/30/2024 Start: 07-01-2024 End: 09-30-2024 Helicobacter pylori IgG Ab [Presence] in Serum or Plasma by Immunoassay H PYLORI IGG AB Lab Routine Epigastric pain Expected: 07/01/2024, Expires: 09/30/2024 [facility] Comment on above: Expected: 07/01/2024 , Expires: 09/30/2024 Start: 07-01-2024 End: 09-30-2024 Hepatic function 2000 panel - Serum or Plasma HEPATIC FUNCTION PNL Lab Routine Epigastric pain Expected: 07/01/2024, Expires: 09/30/2024 [facility] Work Phone: Comment on above: Expected: 07/01/2024 , Expires: 09/30/2024 Start: 07-01-2024 End: 09-30-2024 Lipase [Enzymatic activity/volume] in Serum or Plasma LIPASE Lab Routine Epigastric pain Expected: 07/01/2024, Expires: 09/30/2024 [facility] Comment on above: Expected: 07/01/2024 , Expires: 09/30/2024 Start: 07-01-2024 End: 09-30-2024 Thyrotropin [Units/volume] in Serum or Plasma THYROID STIMULATING HORMONE Lab Routine Diarrhea, unspecified type Expected: 07/01/2024, Expires: 09/30/2024 [facility] Comment on above: Expected: 07/01/2024 , Expires: 09/30/2024 Start: 05-10-2024 Influenza vaccination Influenza Vacc ine (#1) [facility] Comment on above: Postponed from 07/12 (Not Currently Available) Start: 02-10-2024 End: 05-11-2024 Basic metabolic 2000 panel - Serum or Plasma BASIC METABOLIC PNL Lab Routine Stage 3a chronic kidney disease (HCC) Expected: 02/10/2024, Expires: 05/11/2024 [facility] Work Phone: Comment on above: Expected: 02/10/2024 , Expires: 05/11/2024 Start: 02-07-2024 Mammography [facility] Start: 02-07-2024 Screening for malign ant neoplasm of breast Mammogram Screening [facility] Start: 02-04-2024 DIABETES SCREEN DIABETES SCREEN [facility] Start: 01-15-2024 End: 04-15-2024 CBC W Auto Differential panel - Blood CBC + DIFF Lab Routine Stage 3a chronic kidney disease (HCC) Expected: 01/15/2024, Expires: 04/15/2024 [facility] Work Phone: Comment on above: Expected: 01/15/2024 , Expires: 04/15/2024 Start: 01-15-2024 End: 04-15-2024 Comprehensive metabolic 2000 panel - Serum or Plasma COMP METABOLIC PANEL Lab Routine Stage 3a chronic kidney disease (HCC) Expected: 01/15/2024, Expires: 04/15/2024 [facility] Work Phone: Comment on above: Expected: 01/15/2024 , Expires: 04/15/2024 Start: 01-15-2024 End: 04-15-2024 Hemoglobin A1c in Blood HGB A1C Lab Routine Elevated hemoglobin A1c Expected: 01/15/2024, Expires: 04/15/2024 [facility] Work Phone: Comment on above: Expected: 01/15/2024 , Expires: 04/15/2024 Start: 01-15-2024 End: 04-15-2024 LIPID PANEL, NONFASTING LIPID PANEL, NONFASTING Lab Routine Well adult exam Encounter for lipid screening for cardiovascular disease Expected: 01/15/2024, Expires: 04/15/2024 [facility] Work Phone: Comment on above: Expected: 01/15/2024 , Expires: 04/15/2024 Start: 01-15-2024 End: 04-15-2024 Urinalysis complete panel - Urine URINALYSIS, WITH MICROSCOPIC Lab Routine Stage 3a chronic kidney disease (HCC) Expected: 01/15/2024, Expires: 04/15/2024 [facility] Work Phone: Comment on above: Expected: 01/15/2024 , Expires: 04/15/2024 Start: 2023 RSV Vaccine (1 - Ris k 60-74 years 1-dose series) RSV Vaccine (1 - Risk 60-74 years 1-dose series) [facility] Start: 07-12-2023 Covid-19 Vaccine (2022- season) Covid-19 Vaccine ( season) [facility] Start: 07-12-2023 Influenza vaccination C [facility] Start: 03-28-2023 Anes trurl fragmntj manj&/rmvl ureteral calculus ANESTH STONE REMOVAL [facility] Start: 03-28-2023 Cysto w/ureteroscopy w/rmvl/manj stones CYSTOURETERO W/STONE REMOVE [facility] Start: 03-28-2023 Cysto/uretero w/lithotripsy &indwell stent insrt CYSTO/URETERO W/LITHOTRIPSY [facility] Start: 03-28-2023 Patient discharge [facility] Start: 02-07-2023 Anes lithotrp xtrcor p shock wave w/o water bath ANESTH KIDNEY STONE DESTRUCT [facility] Start: 02-07-2023 Lithotripsy xtrcorp shock wave FRAGMENTING OF KIDNEY STONE [facility] Start: 02-07-2023 Patient discharge [facility] Start: 02-06-2023 Mammography MAMMOGRAM [facility] Start: 02-03-2023 ANNUAL PCP TEAM CLAIM ANALYST GREG DISEASE VISIT ANNUAL PCP TEAM CHRONIC DISEASE VISIT [facility] Start: 02-03-2023 Complete blood count Hemoglobin/Santiago tocrit [facility] Start: 02-03-2023 Creatinine measurement Serum Creatin ine [facility] Start: 02-03-2023 HEMOGLOBIN/HEMATOCRIT HEMOGLOBIN/HEM ATOCRIT [facility] Start: 02-03-2023 SERUM CREATININE SERUM CREATININE Cl [facility] Start: 02-02-2023 Adult depression screening assessment DEPRESSION SCREENING [facility] Start: 11-11-2022 DEPRESSION ASSESSMENT DEPRESSION ASS ESSMENT [facility] Start: 11-08-2022 End: 03-05-2023 Ct thorax w/o contrast material CT CHEST WO IVCON Radiology Routine Lung nodule Ex-smoker Lung nodules Expected: 11/08/2022, Expires: 03/05/2023 [facility] Work Phone: Comment on above: Expected: 11/08/2022 , Expires: 03/05/2023 Start: 07-12-2022 Influenza vaccination INFLUENZA (#1) [facility] Start: 02-03-2022 End: 04-05-2022 CBC W Auto Differential panel - Blood [facility] Work Phone: Comment on above: Expected: 02/03/2022 , Expires: 04/05/2022 Start: 02-03-2022 End: 04-05-2022 Comprehensive metabolic 2000 panel - Serum or Plasma [facility] Work Phone: Comment on above: Expected: 02/03/2022 , Expires: 04/05/2022 Start: 02-03-2022 End: 04-05-2022 Hemoglobin A1c/Hemoglobin.total in Blood [facility] Work Phone: Comment on above: Expected: 02/03/2022 , Expires: 04/05/2022 Start: 02-03-2022 HEMOGLOBIN/HEMATOCRIT HEMOGLOBIN/HEM ATOCRIT [facility] Start: 02-03-2022 End: 04-05-2022 LIPID PANEL, NONFASTING [facility] Work Phone: Comment on above: Expected: 02/03/2022 , Expires: 04/05/2022 Start: 02-03-2022 Mammography MAMMOGRAM [facility] Comment on above: Postponed from 08/31 (Declined at this time) Start: 02-03-2022 SERUM CREATININE SERUM CREATININE Cl [facility] Start: 02-03-2022 SHINGRIX VACCINE (1 of 2) MORGAN GRIX VACCINE (1 of 2) [facility] Comment on above: Postponed from 12/05 (Insurance Coverage) Start: 11-11-2021 DEPRESSION ASSESSMENT DEPRESSION ASS ESSMENT [facility] Start: 07-08-2021 COVID-19 VACCINE (2 - Booster for Aixa series) COVID-19 VACCINE (2 - Booster for Aixa series) [facility] Start: 08-31-2016 Mammography MAMMOGRAM [facility] Start: 2013 SHINGRIX VACCINE (1 of 2) MORGAN GRIX VACCINE (1 of 2) [facility] Start: 04-09-2009 FECAL OCCULT BLOOD FECAL OCCULT BLOO D [facility] Start: 04-09-2009 Screening for malign ant neoplasm of colon Fecal Occult Blood [facility] Start: 2008 COLOGUARD (FIT-DNA) COLOGUARD (FIT-D NA) [facility] Start: [address] [facility] Start: 2008 Screening for malign ant neoplasm of colon [facility] Start: 2008 SIGMOIDOSCOPY SIGMOIDOSCOPY [facility] Start: 1993 Zoledronic acid therapy ALPHA- 1 ANTITRYPSIN DEFICIENCY SCREENING [facility] Start: 1982 Pneumococcal Vaccine : 50+ (1 of 2 - PCV) Pneumococcal Vaccine: 50+ (1 of 2 - PCV) [facility] Start: 1981 Anxiety Screening Anxiety Screening [facility] Start: 1981 Depression Screening Depression Scre ening [facility] Start: 1969 PNEUMOCOCCAL (1 - PCV) PNEUMOCOCCAL (1 - PCV) [facility] Start: 1969 Pneumococcal vaccination Pneum ococcal Vaccine (1 - PCV) [facility] Start: 1963 HEPATITIS B (1 of 3 - 3-dose series) HEPATITIS B (1 of 3 - 3-dose series) [facility] Citrate [Mass/volume ] in Urine [facility] Work Phone: Citrate measurement [facility] Work Phone: End: 02-14-2025 CT Chest WO contrast CT CHEST WO IVCON Radiology Routine Ex-smoker Lung nodule Lung nodules 1 Occurrences starting 01/16/2024 until 02/14/2025 [facility] Work Phone: Comment on above: 1 Occurrences starti ng 01/16/2024 until 02/14/2025 CT Chest WO contrast CT CHEST WO IVCON Radiology Routine Ex-smoker Lung nodule Lung nodules 01/27/2024 2:50 PM EDT [facility] Work Phone: End: 12-25-2025 DBT Breast - bilateral screening MEAGHAN SCREENING W ATTILA Radiology Routine Encounter for gynecological examination (general) (routine) without abnormal findings Encounter for screening mammogram for breast cancer 1 Occurrences starting 11/25/2024 until 12/25/2025 [facility] Work Phone: Comment on above: 1 Occurrences starti ng 11/25/2024 until 12/25/2025 ENTERIC BACTERIAL PA TALISHA BY PCR ENTERIC BACTERIAL PANEL BY PCR Lab Routine Diarrhea, unspecified type Ordered: 07/01/2024 [facility] Comment on above: Ordered: 07/01/2024 FAT, FECAL QUAL FAT, FECAL QUAL Lab Routine Diarrhea, unspecified type Ordered: 07/01/2024 [facility] Comment on above: Ordered: 07/01/2024 FECAL LACTOFERRIN/LEUKOCYTES FECAL LACTOFERRIN/LEUKOCYTES Lab Routine Diarrhea, unspecified type Ordered: 07/01/2024 [facility] Comment on above: Ordered: 07/01/2024 End: 07-24-2025 Flexible sigmoidoscopy study COLONOSCOPY DIAGNOSTIC Endoscopy Routine Diarrhea, unspecified type Screen for colon cancer 1 Occurrences starting 07/24/2024 until 07/24/2025 [facility] Work Phone: Comment on above: 1 Occurrences starti ng 07/24/2024 until 07/24/2025 Giardia lamblia+Cryptosporidium sp Ag [Presence] in Stool by Immunoassay CRYPTOSPORIDIUM AND GIARDIA ANTIGENS BY EIA Microbiology Routine Diarrhea, unspecified type Ordered: 07/01/2024 [facility] Comment on above: Ordered: 07/01/2024 End: 03-07-2024 MEAGHAN SCREENING MEAGHAN SCREENING Radiology Routine Encounter for screening mammogram for breast cancer 1 Occurrences starting 02/06/2023 until 03/07/2024 [facility] Work Phone: Comment on above: 1 Occurrences starti ng 02/06/2023 until 03/07/2024 End: 04-10-2025 MG Breast Screening MEAGHAN SCREENING Radiology Routine Encounter for screening mammogram for breast cancer 1 Occurrences starting 03/11/2024 until 04/10/2025 [facility] Work Phone: Comment on above: 1 Occurrences starti ng 03/11/2024 until 04/10/2025 MG Breast Screening MEAGHAN SCREENIN G Radiology Routine Encounter for screening mammogram for breast cancer 07/03/2024 7:32 AM EDT [facility] Work Phone: Patient Education [facility] Work Phone: Patient referral [facility] Work Phone: Radionuclide imaging of perfusion of myocardium under exercise stress [facility] End: 03-07-2023 Screening mammography bi 2-view breast inc cad MEAGHAN SCREENING Radiology Routine Encounter for gynecological examination (general) (routine) without abnormal findings Encounter for screening mammogram for breast cancer 1 Occurrences starting 02/05/2022 until 03/07/2023 [facility] Work Phone: Comment on above: 1 Occurrences starti ng 02/05/2022 until 03/07/2023 [facility] Immunizations Immunization Date Immunization Notes Care Provider Riaz jurado 09-06-2021 influenza virus vaccine, unspecified formulation Tanya Brar MD Work Phone: [facility] Work Phone: 05-13-2021 COVID-19 vaccine (AIXA) Alejo Fletcher MD Work Phone: [facility] 09-28-2020 influenza, seasonal, injectable Alejo Fletcher MD Work Phone: [facility] 08-25-2017 influenza virus vaccine, unspecified formulation Alejo Fletcher MD Work Phone: [facility] 01-18-2016 tetanus toxoid, redu calvin diphtheria toxoid, and acellular pertussis vaccine, adsorbed Alejo Fletcher MD Work Phone: [facility] 08-02-2015 influenza, injectabl e, quadrivalent, contains preservative Alejo Feltcher MD Work Phone: [facility] 09-11-2011 influenza virus vaccine, unspecified formulation Alejo Fletcher MD Work Phone: [facility] 05-11-2003 tetanus toxoid, redu calvin diphtheria toxoid, and acellular pertussis vaccine, adsorbed Alejo Fletcher MD Work Phone: [facility] Payers Date Payer Category Payer Private Health Insurance [id number] 2024 Private Health Insurance [id number] 2024 Self-pay [id number] 2019 Unknown [employer] PPO [id number] 2019-Present [phone] [address] [place] [address] PPO [id number] 2019 Unknown [employer] PPO [id number] 2019-Present [phone] [address] [place] [address] PPO [id number] 2019 Unknown [id number] Private Health Insurance [id number] Unknown [id number] Unknown [id number] Unknown [id number] Unknown [id number] Unknown [id number] .462 Unknown [id number] .462 Unknown [id number] .462 Unknown [id number] .462 Unknown [id number] .462 Unknown [id number] .462 Unknown [id number] .462 Unknown [id number] .462 Unknown [id number] .462 Unknown [id number] .462 Unknown [id number] .462 Unknown [id number] .462 Unknown [id number] .462 Social History Date Type Detail Facility Start: 03-21-2021 End: 03-01-2025 Tobacco smoking status NHIS Ex-smoker [facility] Work Phone: Start: 11-11-2000 End: 11-11-2015 History of tobacco use Current smoker [facility] Work Phone: Start: 11-11-2000 End: 11-11-2015 History of tobacco use Cigarette Smoker [facility] Work Phone: Start: 02-03-2022 End: 12-23-2024 Alcohol intake Current drinker of alcohol (finding) [facility] Start: 02-02-2022 History SDOH Alcohol Frequency 2 [facility] Start: 02-02-2022 History SDOH Alcohol Binge 1 [facility] Start: 12-21-2011 History SDOH Alcohol Comment occasional- 1-2 times per month [facility] Start: 02-02-2022 History SDOH Social Connections Phone 5 [facility] Start: 02-02-2022 History SDOH Social Connections Meetings 3 [facility] Start: 02-02-2022 History SDOH Physica l Activity DPW 6 [facility] Start: 02-02-2022 History SDOH Physica l Activity MPS 9 [facility] Start: 02-01-2021 Education 21 [facility] Start: 1965 Sex Assigned At Female C [facility] Start: 01-24-2022 End: 02-05-2022 Exposure to SARS-CoV-2 (event) Not sure [facility] Start: 11-08-2021 End: 03-21-2023 Tobacco smoking status NHIS Unknown if ever smoked [facility] Start: 03-21-2021 End: 01-15-2024 Cigarettes smoked current (pack per day) - Reported 0.5 [facility] Start: 03-21-2021 End: 07-24-2024 Tobacco use and exposure Smokeless tobacco non-user [facility] Start: 02-02-2022 End: 01-15-2024 Social connection and isolation panel [facility] Do you belong to any clubs or organizations such as gnosticism groups, unions, fraternal or athletic groups, or school groups? Yes [facility] Are you now , , , , never or living with a partner? [facility] How often to you hav e a drink containing alcohol? Monthly or less [facility] How many standard drinks containing alcohol do you have on a typical day? 3 or 4 [facility] How often do you hav e 6 or more drinks on 1 occasion? Never [facility] How hard is it for y ou to pay for the very basics like food, housing, medical care, and heating Not hard at all [facility] Do you feel stress - tense, restless, nervous, or anxious, or unable to sleep at night because your mind is troubled all the time - these days [OSQ] Only a little [facility] (I/We) worried imelda er (my/our) food would run out before (I/we) got money to buy more. Never true [facility] In the past 12 month s, was there a time when you were not able to pay the mortgage or rent on time? No [facility] Start: 07-05-2020 Gender identity Identifies as female gender (finding) [facility] Start: 07-05-2020 Sexual orientation Heterosexual (karlee gage) [facility] How many standard drinks containing alcohol do you have on a typical day? 1 or 2 [facility] How often do you hav e 6 or more drinks on 1 occasion? Less than monthly [facility] Do you feel stress - tense, restless, nervous, or anxious, or unable to sleep at night because your mind is troubled all the time - these days [OSQ] To some extent [facility] Start: 01-14-2025 End: 02-18-2025 Sex Female (finding) [facility] NEGATED: Highlighted row [facility] Medical Equipment Procedure Code Equipment Code Equipment Origin al Text Equipment Identifier Dates Polymeric ureter al stent [id number] FDA Start: 03-28-2023 Goals Date Patient Goal Desired Activity /State Functional Status Date Assessment Result Facility 06-30-2014 Are you deaf, or do you have serious difficulty hearing No 06/30/2014 5:30 PM EDT Lindsey Martínez MA No [facility] 06-30-2014 Are you blind, or do you have serious difficulty seeing, even when wearing glasses No 06/30/2014 5:30 PM EDT Lindsey Martínez MA No [facility] 06-30-2014 Do you have serious difficulty walking or climbing stairs No 06/30/2014 5:30 PM EDT Lindsey Martínez MA No [facility] 06-30-2014 Do you have difficul ty dressing or bathing No 06/30/2014 5:30 PM EDT Lindsey Martínez MA No [facility] 06-30-2014 Because of a physica l, mental, or emotional condition, do you have difficulty doing errands alone such as visiting a physician's office or shopping No 06/30/2014 5:30 PM EDT Lindsey Martínez MA No [facility] Mental Status Date Assessment Result Facility 03-28-2023 Cognitive function Voice/Name [facility] Work Phone: 02-07-2023 Cognitive function Touch/Shaking [facility] Work Phone: 06-30-2014 Because of a physica l, mental, or emotional condition, do you have serious difficulty concentrating, remembering, or making decisions No 06/30/2014 5:30 PM EDT Lindsey Martínez MA No [facility] Clinical Notes 01-18-2016 to 07-26-2025 Note Date & Type Note Facility 07-26-2025 Radiology Diagnostic study note [facility] Imaging Services [address] [place] [address] ABD Limited w/ Elastography MR#: [id number] Acct: [id number] Name: JUAN R GARCIA Rep #: [id number] : [id number] F 59 From: Wero Estrada MD PCP: Dr. Chavo Mendosa MD Status: [facility] Study:ABD Limited w/ Elastography Date of Exa m: 07/26/25 Exam# [id number] Ordering Dr: Chavo Mendosa MD PROCEDURE: ABD LIMITED W/ ELASTOGRAPHY REASON FOR EXAM: FATTY LIVER COMPARISON: None. TECHNIQUE: Procedure Code: [id number] Modality: US Procedure: ABD LIMITED W/ ELASTOGRAPHY Right upper quadrant abdominal ultrasound. Tisha ElastQ Imaging shear wave elastography for non-invasive assessment of liver tissue stiffness. Tisha EPIQ Elite. FINDINGS: LIVER: Size: Unremarkable Length: 15 cm Echotexture: Contour: Normal Lesions: None identified Elastography: EQI Med: 9.1 kPa EQI Med Trang: 1.73 m/s IQR/Med: 11 %* GALLBLADDER: Small amount of sludge is seen in the gallbladder lumen. COMMON BILE DUCT: Normal measuring 2.4 mm . PANCREAS: Normal Mild right renal cortical thinning. There are 3 tiny nonobstructive right intrarenal calculi in the lower pole.. No right upper quadrant ascites. US/ABD Limited w/ Elastography IMPRESSION: Moderate degree of hepatic fibrosis. Small amount of sludge is seen in the gallbladder lumen. There are 3 small nonobstructive right intrarenal calculi. Reference Values: SRU <1.37 m/s (5.7kPa): No to mild fibrosis 1.37 m/s - 2.2 m/s: Moderate to severe fibrosis >2.2 m/s (15kPa): Significant fibrosis / cirrhosis METAVIR Score F2 or higher: 1.34 m/s (5.7kPa) F3 or higher: 1.55 m/s (7.3kPa) F4: 1.80 m/s (10kPa) * If the IQR/Med is >30%, the variance in the measurements is a large and the accuracy of the measurement may be in question. Reading Location: [facility] CC: Dr. Chavo Mendosa MD ~ Motion Study Analyst: Signed [facility] 06-21-2025 Radiology Diagnostic study note [facility] Imaging Services [address] [place] [address] Abdomen/Pelvis WITH Contrast MR#: [id number] Acct: [id number] Name: JUAN R GARCIA Rep #: [id number] : [id number] F 59 From: Rachel Hanson MD PCP: Dr. Chavo Mendosa MD Status: [facility] Study:Abdomen/Pelvis WITH Contrast Date of Ex am: 06/21/25 Exam# [id number] Ordering Dr: Chavo Mendosa MD EXAM: CT Abdomen and Pelvis With Intravenous Contrast CLINICAL INDICATION: ABDOMINAL PAIN AND DIARRHEA TECHNIQUE: Axial computed tomography images of the abdomen and pelvis with intravenous contrast. This CT exam was performed using one or more of the following dose reduction techniques: automated exposure control, adjustment of the mA and/or kV according to patient size, and/or use of iterative reconstruction technique. COMPARISON: No relevant prior studies available. FINDINGS: LUNG BASES: Unremarkable. No mass. No consolidation. ABDOMEN: LIVER: Hepatomegaly with fatty infiltration. GALLBLADDER AND BILE DUCTS: Unremarkable. No calcified stones. No ductal dilation. PANCREAS: Unremarkable. No mass. No ductal dilation. SPLEEN: Unremarkable. No splenomegaly. ADRENALS: Unremarkable. No mass. KIDNEYS AND URETERS: Unremarkable. No stones within either kidney. No hydronephrosis. STOMACH AND BOWEL: Fecal retention in the colon consistent with constipation. No obstruction. No mucosal thickening. PELVIS: APPENDIX: No findings to suggest acute appendicitis. BLADDER: Unremarkable. No mass. REPRODUCTIVE: Unremarkable as visualized. ABDOMEN and PELVIS: INTRAPERITONEAL SPACE: Unremarkable. No free air. No significant fluid collection. BONES/JOINTS: No acute fracture. No dislocation. SOFT TISSUES: Umbilical hernia containing fat. VASCULATURE: Unremarkable. No abdominal aortic aneurysm. LYMPH NODES: Unremarkable. No enlarged lymph nodes. CT/Abdomen/Pelvis WITH Contrast IMPRESSION: 1. Hepatomegaly with fatty infiltration. 2. Fecal retention in the colon consistent with constipation. 3. Umbilical hernia containing fat. 4. No obstructive uropathy. Reading Location: [id number] CC: Dr. Chavo Mendosa MD ~ Motion Study Analyst: Signed [facility] 03-09-2025 Evaluation note Diagnosis Onset Date Resolution Chronic kidney disease chronic Ap ril 2024 11:13am Coronary artery disease chronic A pril 2024 11:13am Hypertension chronic Gretta 2024 11:13am [facility] Work Phone: 1(911) 678-865604-06-2025 Radiology Diagnostic study note [facility] Imaging Services [address] [place] [id number] Lung Screening MR#: [id number] Acct: [id number] Name: JUAN R MCCARTNEY Rep #: [id number] : 1965 F 59 From: Pet er Peer DO PCP: Dr. Chavo Mendosa MD Status: [facility] Study:Low Dose CT Lung Screening Date of Exam : 02/12/25 Exam# [id number] Ordering Dr: Chavo Mendosa MD PROCEDURE: LOW [...] use of iterative reconstruction technique). REFERENCE LINK: Minka Lung-RADS RADIATION DOSE SUMMARY: CTDlvol: 2.01 mGy [...] pulmonary nodules. Coronary artery calcification (CAC) is kwqo-[id number]-phmowtti left main coronary artery. Lung-RADS Category: 3 consider six-month follow-up low-dose CT lung Other Significant Findings: None. Reading [facility] CC: Dr. Chavo Mendosa MD ~ Motion Study Analyst: Signed [facility]03-11-2025 NoteHNO ID: [id number] Author: VARUN RIDLEY LPN Service: ? Author Type: LICENSED NURSE Type: Progress Notes Filed: 01/19/2025 09:41 Note Text: Scan on 01/19/2025 8:32 AM by ProviderGriselda, PASuhailC: Miscellaneous Lab [facility]03-11-2025 History of Present illness Narrative* Varun Ridley LPN - 01/19/2025 9:40 AM EDT Scan on 01/19/2025 8:32 AM by ProviderGriselda PASuhailC: Miscellaneous Lab documented in this encounter[address]26-2025 NoteHNO ID: [id number] Author: JIMMY DILLARD MA Service: ? Author Type: Land Surveying Party Chief Type: Progress Notes Filed: 01/06/2025 07:47 Note Text: Scan on 01/04/2025 6:05 PM by Griselda Kidd PA-C: Chemistry Jimmy Dillard [facility]02-26-2025 History of Present illness Narrative* Jimmy Dillard MA - 01/06/2025 7:47 AM EST Scan on 01/04/2025 6:05 PM by ProviderGriselda PA-C: Richie Dillard MA documented in this encounterAden[facility]02-24-2025 NoteHNO ID: [id number] Author: JIMMY DILLARD MA Service: ? Author Type: Land Surveying Party Chief Type: Progress Notes Filed: 01/04/2025 11:07 Note Text: Scan on 01/01/2025 2:26 PM by Griselda Kidd PA-C: CT Scan Jimmy Dillard [facility]02-24-2025 History of Present illness Narrative* Jimmy Dillard MA - 01/04/2025 11:07 AM EST Scan on 01/01/2025 2:26 PM by Griselda Kidd PA-C: CT Scan Jimmy Dillard MA documented in this encounterAdena [facility]ike [facility]02-21-2025 Radiology Diagnostic study note [facility] Imaging Services [address] [place] [address] Abdomen/Pelvis without Cont MR#: [id number] Acct: [id number] Name: JUAN R MCCARTNEY Rep #: [id number] : 1965 F 59 From: Wero Estrada MD PCP: Dr. Alejo Fletcher MD Status: REG CLI Study:Abdomen/Pelvis without Cont Date of Exa m: 01/01/25 Exam# [id number] Ordering Dr: Avelina Rios MD PROCEDURE: ABDOMEN/PELVIS [...] use of iterative reconstruction technique). Reading Location: [place] [address] CC: Dr. Avelina Rios MD; Dr. Alejo Fletcher MD ~ Motion Study Analyst: Signed [facility]02-18-2025 NoteHNO ID: [id number] Author: VARUN RIDLEY LPN Service: ? Author Type: LICENSED NURSE Type: Progress Notes Filed: 12/29/2024 11:41 Note Text: Scan on 12/29/2024 10:09 AM by Provider, External, PA-C: [facility] History of Present illness Narrative* Varun iRdley LPN - 12/29/2024 11:40 AM EST Scan on 12/29/2024 10:09 AM by ProviderGriselda PA-C: Consultation - Nephrology/Renal documented in this encounterAdena [facility]02-14-2025 NoteHNO ID: [id number] Author: VARUN RIDLEY LPN Service: ? Author Type: LICENSED NURSE Type: Progress Notes Filed: 12/25/2024 07:30 Note Text: Scan on 12/23/2024 5:40 PM by ProviderGriselda PA-C: [facility] History of Present illness Narrative* Varun iRdley LPN - 12/25/2024 7:30 AM EST Scan on 12/23/2024 5:40 PM by ProviderGriselda PA-C: Chemistry documented in this encounterAdena Pike [facility] Center02-12-2025 Telephone encounter Note * Telephone Encounter - Joel Acosta - 12/23/2024 10:56 AM EST Patient asking for her Gastro referral to be faxed over to [facility]. Please review. Joel Acosta December 23, 2024 10:57 AM [facility]02-12-2025 Miscellaneous Notes* Telephone Encounter - Joel Acosta - 12/23/2024 10:56 AM EST Patient asking for her Gastro referral to be faxed over to [facility]. Please review. Joel Acosta December 23, 2024 10:57 AM documented in this encounterAdena Pike Medical Center02-12-2025 History of Present illness Narrative* Tana Peterson APRN.CABINET INSTALLER - 12/23/2024 9:30 AM EST HISTORY AND PHYSICAL Juan R Pollack 1965 [...] -takes a live probiotic -was told by [employer] INSPECTOR to ask about SIBO testing -notes she has recently been having some kidney issues including calculus of kidney & multiple kidney stones been following with nephrology & urology at [facility]. PAST MEDICAL HISTORY Diagnosis Date Adjustment disorder with depressed mood 01/14/2008 AK (actinic keratosis) 01/27/202401/2024: left upper chest cryo, Calculus of kidney CKD (chronic kidney disease) stage 3, GFR 30-59 ml/min ([facility]) 10/29/[address] Storey COPD (Chronic Obstructive [...] improvement. Tana Peterson APRN.EMILY documented in this encounterAdena Pike Medical Center02-12-2025 NoteHNO ID: [id number] Author: TANA PETERSON APRN.CNP Service: ? Author Type: Nurse Practitioner Type: Progress Notes Filed: 12/23/2024 10:23 Note Text: HISTORY AND PHYSICAL Juan R Pollack 1965 [...] -takes a live probiotic -was told by [employer]LE INSPECTOR to ask about SIBO testing -notes she has recently been having some kidney issues including calculus of kidney AND multiple kidney stones been following with nephrology AND urology at [facility]. PAST MEDICAL HISTORY Diagnosis Date Adjustment disorder with depressed mood 01/14/2008 AK (actinic keratosis) 01/27/202401/2024: left upper chest cryo, Calculus of kidney CKD (chronic kidney disease) stage 3, GFR 30-59 ml/min ([facility]) 10/29/[address] Storey COPD (Chronic Obstructive [...] Respiratory: Clear to auscu (more content not included)...[facility]01-15-2025 NoteHNO ID: [id number] Author: TANYA BRAR MD Service: ? Author Type: Physician Type: Progress Notes Filed: 11/25/2024 10:00 Note Text: Table Tender Sludge offered: Patient declinesHe Pete is a 58 year old who [...] L1 SAB0 IAB0 Ectopic0 Multiple0 Live Births0 Finishing Room Operator History LMP: Hysterectomy Age at Menarche: 13 Age at First : Age at Menopause: Finishing Room Operator History Comments: Sexual Activity: Yes; Male; hysterectomy Contraception: Surgical PAST MEDICAL HISTORY Diagnosis Date Adjustment disorder with depressed mood 01/14/2008 AK (actinic keratosis) 01/27/202401/2024: left upper chest cryo, Calculus of kidney CKD (chronic kidney disease) stage 3, GFR 30-59 ml/min ([facility]) 10/29/[address] Storey COPD (Chronic Obstructive [...] discussed with the Patient or Patient's Authorized Bi Tri Operator. As applicable, any other physician, advance practice provider, medical student, or other health professional student that will be observing or involved in the sensitive examination for educational or training purposes was discussed with the Patient or Authorized Bi Tri Operator. The Patient or Authorized Bi Tri Operator has agreed to proceed with the sensitive [...] no masses PELVIC: normal Bartholin's glands, urethra, [place]'s glands, no vulvar lesions, good vaginal support, physiologic discharge present, normal appearing perineal body and perianal (more content not included)...[facility] 11-25-2024 History of Present illness Narrative* Tanya Brar MD - 11/25/2024 9:23 AM EST Table Tender Sludge offered: Patient declines. Juan R is a [...] L1 SAB0 IAB0 Ectopic0 Multiple0 Live Births0 Finishing Room Operator History LMP: Hysterectomy Age at Menarche: 13 Age at First : Age at Menopause: Finishing Room Operator History Comments: Sexual Activity: Yes; Male; hysterectomy Contraception: Surgical PAST MEDICAL HISTORY Diagnosis Date Adjustment disorder with depressed mood 01/14/2008 AK (actinic keratosis) 01/27/202401/2024: left upper chest cryo, Calculus of kidney CKD (chronic kidney disease) stage 3, GFR 30-59 ml/min ([facility]) 10/29/[address] Storey COPD (Chronic Obstructive [...] discussed with the Patient or Patient's Authorized Bi Tri Operator. As applicable, any other physician, advance practice provider, medical student, or other health professional student that will be observing or involved in the sensitive examination for educational or training purposes was discussed with the Patient or Authorized Bi Tri Operator. The Patient or Authorized Bi Tri Operator has agreed to proceed with the sensitive [...] no masses PELVIC: normal Bartholin's glands, urethra, [place]'s glands, no vulvar lesions, good vaginal support, [...] needed Tanya Brar MD documented in this encounterAdena [facility] Center2024 Telephone encounter Note * Telephone Encounter - [...] 12 hrs before departure. Alejo Fletcher MD [facility]2024 Miscellaneous Notes* Telephone Encounter - Alejo Fletcher [...] departure. Alejo Fletcher MD documented in this encounterAdena Pike Medical Center09-27-2024 History of Present illness Narrative* Tana Peterson APRN.CABINET INSTALLER - 08/07/2024 8:00 AM EDT FOLLOW UP VISIT - ENDOSCOPY Juan R Pollack 1965 [id number] REFERRING PHYSICIAN: Marcial Davis III [address] [facility] [address] [address] Nataliia Pollack is a patient I am following [...] improvement. Tana Peterson APRN.EMILY documented in this encounterAdena Pike Medical Center09-27-2024 NoteHNO ID: [id number] Author: TANA PETERSON APRN.CABINET INSTALLER Service: ? Author Type: Nurse Practitioner Type: Progress Notes Filed: 08/07/2024 08:18 Note Text: FOLLOW UP VISIT - ENDOSCOPY Juan R Pollack 1965 [id number] REFERRING PHYSICIAN: Marcial Davis III [address] [facility] [address] Juan R Field Nataliia Kelechiberryverenice is a [...] as needed for worsening/no improvement. Tana Peterson APRN.[facility]ILYMag[facility]09-19-2024 Telephone encounter Note* Telephone Encounter - Brynn Stone RN - 07/30/2024 11:30 AM EDT . [facility]09-19-2024 Miscellaneous Notes* Telephone Encounter - Brynn Stone RN - 07/30/2024 11:30 AM EDT . documented in this encounterAdena Pike Medical Center09-19-2024 NoteHNO ID: [id number] Author: SHRUTI ELLER RN Service: ? Author Type: Registered Nurse Type: Nursing Progress Note Filed: 07/30/2024 09:49 Note Text: Ambulated to BRP with assistance. Passing flatus. Denies discomfort. Shruti Eller [facility]NM[facility]09-19-2024 Nurse Note* Shruti Eller RN - 07/30/2024 9:22 AM EDT Ambulated to BRP with assistance. Passing flatus. Denies discomfort. Shruti Eller RN [facility]09-19-2024 Nurse Note* Shruti Eller RN - 07/30/2024 [...] recommendations. Shruti Eller RN documented in this encounterAdena Pike Medical Center09-19-2024 Miscellaneous Notes* Discharge Instr - Nursing - Shruti Eller RN - 07/30/2024 8:46 AM EDT The patient received a copy of Colonoscopy discharge instructions that contain information for how to contact the physician who performed the procedure and when to seek medical care.Shruti Eller RN documented in this encounterAdena Pike Medical Center09-19-2024 Note* Discharge Instr - Nursing - Shruti Eller RN - 07/30/2024 8:46 AM EDT The patient received a copy of Colonoscopy discharge instructions that contain information for how to contact the physician who performed the procedure and when to seek medical care.Shruti Eller RN [facility]09-19-2024 Nurse Note* Shruti Eller RN - 07/30/2024 8:31 AM EDT Arrived in phase II via cart. Left lateral position. Sedated, but responds to verbal stimuli. Colornormal; skin warm and dry. Respirations wnl and unlabored. Abdomen soft and with + bowel sounds in quads X 4. Patient resting comfortably. Family at bedside. Dr. Parson at bedside to review procedure and recommendations. Shruti Eller RN [facility]09-19-2024 History and physical note* Marcial Davis MD [...] colonoscopy was [address] Pace at [facility]. Sedation received:Fentanyl 100 micrograms IV, Midazolam 4 [...] kidney disease) stage 3, GFR 30-59 ml/min ([facility]) 10/29/[address] Storey COPD (Chronic Obstructive [...] were answered. Abieljuan chooses IV conscious sedation. Juan R was [...] edited and updated as necessary. Tana Peterson APRN.CABINET INSTALLER UPDATED HISTORY AND PHYSICAL EXAMINATION SERVICE DATE: 07/30/2024 SERVICE TIME: 8:00 AM SENSITIVE EXAMINATION CONSENT: The sensitive examination was discussed with the Patient or Patient's Authorized Bi Tri Operator. Asapplicable, any other physician, advance practice provider, medical student, or other health professional student that will be observing or involved in the sensitive examination for educational or training purposes was discussed with the Patient or Authorized Bi Tri Operator. The Patient or Authorized Bi Tri Operator has agreed to proceed with the sensitive [...] DATE: July 30, 2024 TIME: 8:00 AM [facility]09-19-2024 History and physical note* Marcial Davis MD [...] change in bowel habits. Abielia denies melena. Abielia denies bright red blood per rectum. Cecia denies hemorrhoids. Cecia denies heartburn. Cecia denies dysphagia. Juan R denies a history of ulcers/ peptic ulcer disease. +currently has epigastric pain- on h. Pylori tx Denies family history of colon issues. Juan R has undergone prior endoscopy. Last colonoscopy was [address] Pace at [facility]. Sedation received:Fentanyl 100 micrograms IV, Midazolam 4 [...] kidney disease) stage 3, GFR 30-59 ml/min ([facility]) 10/29/[address] Storey COPD (Chronic Obstructive [...] Was treated. Stage 3a chronic kidney disease ([facility]) 10/29/[address] Storey Vertigo 04/01/2010 rare [...] edited and updated as necessary. Tana Peterson APRN.CABINET INSTALLER UPDATED HISTORY AND PHYSICAL EXAMINATION SERVICE DATE: 07/30/2024 SERVICE TIME: 8:00 AM SENSITIVE EXAMINATION CONSENT: The sensitive examination was discussed with the Patient or Patient's Authorized Bi Tri Operator. Asapplicable, any other physician, advance practice provider, medical student, or other health professional student that will be observing or involved in the sensitive examination for educational or training purposes was discussed with the Patient or Authorized Bi Tri Operator. The Patient or Authorized Bi Tri Operator has agreed to proceed with the sensitive [...] 2024 TIME: 8:00 AM documented in this encounterAdena Pike Medical Center09-13-2024 History of Present illness Narrative* Tana Peterson, DOLORES.CABINET INSTALLER - 07/24/2024 8:30 AM EDT HISTORY AND [...] colonoscopy was [address] Pace at [facility]. Sedation received:Fentanyl 100 micrograms IV, Midazolam 4 [...] kidney disease) stage 3, GFR 30-59 ml/min ([facility]) 10/29/[address] Storey COPD (Chronic Obstructive [...] edited and updated as necessary. Tana Peterson APRN.CNP documented in this encounterAdena Pike Medical Center09-13-2024 NoteHNO ID: [id number] Author: TANA PETERSON APRN.CNP Service: ? Author Type: Nurse Practitioner Type: [...] colonoscopy was [address] Pace at [facility]. Sedation received:Fentanyl 100 micrograms IV, Midazolam 4 [...] kidney disease) stage 3, GFR 30-59 ml/min ([facility]) 10/29/[address] Storey COPD (Chronic Obstructive [...] blood. Gastrointestinal: The patie (more content not included)...[facility]09-03-2024 Telephone encounter Note* Telephone Encounter - [...] before meal. Authorizing Provider: ALEJO FLETCHER MD [facility]09-03-2024 Miscellaneous Notes* Telephone Encounter - Alejo Fletcher [...] a day for 14 days. Authorizing Provider: JUSTINE, ALEJO A lansoprazole (PREVACID) 30 mg capsule 28 capsule 0 Sig: Take 1 capsule by mouth two times a day for 14 days. 1/2 hr before meal. Authorizing Provider: ALEJO FLETCHER MD * Telephone Encounter - Mica Strange RN - 07/14/2024 8:40 AM EDT Pt called and is notified of providers results and instructions. Pt would like medication sent to [facility] in [place]. Pt voices understanding. Transferred to scheduled to set up appt with General Surgery. Mica Strange RN * Telephone Encounter - [...] the cause. Please advise. documented in this encounterAdena Pike Medical Center09-03-2024 Telephone encounter Note * Telephone Encounter - Mica Strange RN - 07/14/2024 8:40 AM EDT Pt called and is notified of providers results and instructions. Pt would like medication sent to [facility] in [place]. Pt voices understanding. Transferred to scheduled to set up appt with General Surgery. Mica Strange RN [facility]09-02-2024 Telephone encounter Note* Telephone Encounter - Alejo [...] these scripts sent. Her mammogram was ok. [facility]08-28-2024 Telephone encounter Note* Telephone Encounter - Opal Reynoso LPN - 07/08/2024 1:02 PM EDT states that everything she has tried at home does not work. When she eats she has diarrhea within 15 minutes. states that she will call in Saturday to see what PCP is recommending. Asking for consult to gastro be placed. [facility]08-28-2024 Telephone encounter Note* Telephone Encounter - Ayan Michael MA - 07/08/2024 12:57 PM EDT Left message to call office. 07/08/2024 12:57 PM [facility]08-28-2024 Telephone encounter Note* Telephone Encounter - Richie Daniel MD - 07/08/2024 12:21 PM EDT Fecal lactoferrin is indicated of the possible presence of white blood cells and inflammation in the colon. H. Pylori antibody may indicated previous or current stomach infection and gastritis. Recommend: Continue self measures to control chronic symptoms noted at OV. Request PCP for gastroenterology referral. T [facility] Work Phone: 1(794) 628-488908-28-2024 Telephone encounter Note* Telephone Encounter - Opal [...] trying to find the cause. Please advise. [facility]08-26-2024 Note* Letter - [facility] - 07/06/2024 1:07 PM EDT July 06, 2024 PID: [id number] Juan R Pollack [address] [place] [address] Dear He Ilahaylee Pollack, We are pleased to inform you [...] report will be kept on file at [facility] as part of your permanent medical record and are available for your continuing care. Thank you for allowing us to help in meeting your health care needs. Sincerely, Dr. Stout Interpreting Radiologist [facility] (Normal over 40) [facility]08-26-2024 Miscellaneous Notes* Letter - [facility] - 07/06/2024 1:07 PM EDT July 06, 2024 PID: [id number] Juan R Pollack [address] [place] [address] Dear He Ilahaylee Pollack, We are pleased to inform you [...] report will be kept on file at [facility] as part of your permanent medical record and are available for your continuing care. Thank you for allowing us to help in meeting your health care needs. Sincerely, Dr. Stout Interpreting Radiologist [facility] (Normal over 40) documented in this encounterAdena Pike Medical Center08-23-2024 History of Present illness Narrative* Rosa Isela [...] PATIENT PRESENTS WITH AN IMPLANTABLE OR ATTACHED FOREIGN EXCHANGE POSITION CLERK: No RADIOLOGY DEPARTMENT: Mammography PERIPHERAL IV DATA: Not applicable SIGNED BY: Danii Brandon July 03, 2024 7:33 AM documented in this encounterAdena Pike Medical Center08-23-2024 NoteHNO ID: [id number] Author: ROSA ISELA MANCERA Mammo Tech Service: ? Author Type: Food Service Clerk Type: Progress Notes Filed: 07/03/2024 07:33 Note [...] PATIENT PRESENTS WITH AN IMPLANTABLE OR ATTACHED FOREIGN EXCHANGE POSITION CLERK: No RADIOLOGY DEPARTMENT: Mammography PERIPHERAL IV DATA: Not applicable SIGNED BY: Rosa Isela Mancera E-Blink July 03, 2024 7:33 [facility]08-21-2024 History of Present illness Narrative* Alejo Fletcher [...] kidney disease) stage 3, GFR 30-59 ml/min ([facility]) Comment: Seeing Dr. Storey 04/01/2010: COPD (Chronic [...] resolving. Alejo Fletcher MD documented in this encounterAdena Pike Medical Center08-21-2024 NoteHNO ID: [id number] Author: ALEJO FLETCHER MD Service: ? Author [...] kidney disease) stage 3, GFR 30-59 ml/min ([facility]) Comment: Seeing Dr. Storey 04/01/2010: COPD (Chronic [...] 2) due on 01/15/20 (more content not included)...[facility]08-19-2024 Telephone encounter Note* Telephone Encounter - Niesha Cordoba RN - 06/29/2024 10:28 AM EDT Last OV 02/06/23. [employer] Inchart message sent to Pt to get annual [...] 7-10 days prn flares. Niesha Cordoba RN [facility]08-19-2024 Miscellaneous Notes* Telephone Encounter - Niesha Cordoba RN - 06/29/2024 10:28 AM EDT Last OV 02/06/23. [employer] message sent to Pt to get annual [...] flares. Niesha Cordoba RN documented in this encounterAdena Pike Medical Center05-01-2024 NotePatient Outreach (INTMMN) JUAN R GARCIA ([id number]) 1965 F Date Time Provider Department 03/11/24 [...] for screening mammogram for breast cancer [Z12.31] Order(s):[facility] SCREENING [[id number]] Order #: [id number] FUTURE Prescriptions as of 03/16/2024 - MULTIVITAMIN [...] Lung nodules [R91.8] 01/28/2024 Encounter Status:Closed by ANGEL ARRIAZA on 03/16/24[facility] 01-29-2024 Miscellaneous Notes* Telephone Encounter - Jimmy Dillard MA - 01/29/2024 8:27 AM EDT Patient notified and voiced understanding. Jimmy Dillard MA * Telephone Encounter - Alejo Fletcher MD - 01/28/2024 5:18 PM EDT Let patient know CT chest shows the lung nodules are stable. Does not need any further f/u documented in this encounterAdena Pike Medical Center03-18-2024 Miscellaneous Notes* Telephone Encounter - Xochilt Rodriguez [...] Rios and nephrology. She couldn't remember her authorizer's name at this moment. She has had [...] well. Xochilt Rodriguez PA-C documented in this encounterAdena Pike Medical Center03-18-2024 History of Present illness Narrative* Alejo Fletcher [...] kidney disease) stage 3, GFR 30-59 ml/min ([facility]) 10/29/[address] Storey COPD (Chronic Obstructive [...] 2) due on 01/14/2025 Covid-19 Vaccine(2 - 2022-24 season) due on 01/14/2025 Pneumococcal Vaccine(1 of [...] returns. Alejo Fletcher MD [facility]* Diagnosis Stage 3a chronic kidney disease (HCC)- Primary documented in [facility] Miscellaneous Notes* Telephone Encounter - Chapin Gleason [...] chest CT. Order placed. documented in this encounterAdena [facility]03-06-[facility]24 Instructions* Patient Instructions* Alejo Fletcher MD - [...] vit D a day. documented in this encounterAden[facility]03-[facility]24 History of Present illness Narrative* Alejo Fletcher [...] kidney disease) stage 3, GFR 30-59 ml/min ([facility]) 10/29/[address] Storey COPD (Chronic Obstructive [...] Vaccine(1) due on 07/12/2023 Covid-19 Vaccine(2 - 2022- season) due on 07/12/2023 Depression Assessment Never [...] removal. Alejo Fletcher MD documented in this encounterA[facility]09-26-[facility]23 History of Present illness Narrative* Ann Matthews Ma - 08/06/2023 10:26 AM EDT View External Labs - Chemistry [ID [id number]] documented in this encounterAdena [facility]09-15-2023 History of Present illness Narrative* Varun Ridley LPN - 07/26/2023 10:14 AM EDT Scan on 07/26/2023 9:37 AM by Provider, External, PA-C: Chemistry documented in this encounterAdena [facility]06-07-2023 History of Present illness Narrative* Jimmy Dillard MA - 04/17/2023 7:36 PM EDT Scan on 04/14/2023 4:33 PM by External Provider, RENATOC: Miscellaneous Lab Jimmy Dillard MA documented in this encounterAden[facility]04-19-2023 History of Present illness Narrative* Jimmy Dillard MA - 02/27/2023 1:00 PM EDT Scan on 02/22/2023 9:41 AM by External Provider: X-ray Jimmy Dillard MA documented in this encounterAdena [facility]04-06-2023 History of Present illness Narrative* Jimmy Dillard MA - 02/14/2023 12:49 PM EDT Scan on 02/12/2023 12:21 PM by External Provider: Jimmy Dillard MA documented in this encounterA[facility]03-30-[address] Rios [facility] February 07, 2023 1:53pm Note Date/Time February 07, 2023 1:5 1pm [facility] Medical Records Department [address] [place] [address] Instructions for Home/Discharge Instructions 02/07/23 1351 MR#: [id number] Acct: [id number] Name: JUAN R POLLACK Rep #:[id number] : 1965 57 From: Avelina Granger PCP: Dr. Alejo Fletcher MD Status:REG [facility] Discharge Instructions Diet Discharge Diet: No restrictions [...] can be placed): Home, Self Care 02/07/23 1353<Electronically signed by Avelina Rios MD>Avelina Rios MD CC: Dr. Alejo Fletcher MD ~ Signed [facility] Work Phone: [phone]) 833-333403-30-2023 Miscellaneous Notes* Telephone Encounter - Fatmata Naylor Cma - 02/07/2023 11:59 AM EDT [employer] message sent to patient Fatmata Naylor Sana * Telephone Encounter - Jia Alvarado APRN.CNP - 02/07/2023 11:26 AM EDT Please let patient know her mammogram is normal. She should continue with annual screenings. documented in this encounterAdena [facility]03-30-2023 Miscellaneous Notes* Letter - Mammography Coordinator - 02/07/2023 11:24 AM EDT February 08, 2023 PID: [id number] Juan R Pollack [address] [place] [address] Dear Ms. Nataliia Pollack, We are pleased [...] report will be [facility] as part of your permanent medical record and are available for your continuing care. Thank you for allowing us to help in meeting your health care needs. Sincerely, Dr. Garcia Interpreting Radiologist [facility] (Normal over 40) documented in this encounterAdena [facility] Center03-29-2023 Miscellaneous Notes* Addendum Note - Tanya Brar MD - 02/06/2023 10:11 AM EDTAddended by: TANYA BRAR on: 02/06/2023 10:11 AM Modules accepted: Orders documented in this encounterAdena [facility]ike [facility] Center03-29-2023 History of Present illness Narrative* Deyanira Salazar RT(R) - 02/06/2023 9:10 AM EDT Radiology Service [...] 06, 2023 8:59 AM documented in this encounterAdena [facility]ike [facility]03-29-2023 History of Present illness Narrative* Tanya Brar [...] lithotripsy tomorrow for kidney stones, 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 Postmenopausal: yes HRT use: No. Last Pap: 01/30/2010 normal HPV: negative History of abnormal pap: No Last mammogram: 2022 pending History of abnormal mammogram: No Sexually active: Yes OB History T1 L1 SAB0 IAB0 Ectopic0 Multiple0 Live Births0 Finishing Room Operator History LMP: Hysterectomy Age at Menarche: Age at First : Age at Menopause: Finishing Room Operator History Comments: Sexual Activity: Yes; Male; hysterectomy Contraception: Surgical PAST MEDICAL HISTORY Diagnosis Date Adjustment disorder with depressed mood 01/14/2008 Calculus of kidney CKD (chronic kidney disease) stage 3, GFR 30-59 ml/min ([facility]) 10/29/[address] Storey COPD (Chronic Obstructive [...] no masses PELVIC: normal Bartholin's glands, urethra, [place]'s glands, no vulvar lesions, good vaginal support, [...] needed Tanya Brar MD documented in this encounterAdena [facility] Center10-04-2022 Miscellaneous Notes* Telephone Encounter - Viola Parker - 08/14/2022 10:46 AM EDT Called PT LVM to call back and schedule. Viola PSS * Telephone Encounter - Jimym Dillard MA - 08/10/2022 11:22 AM EDT Help patient schedule a complete PE on or after 02/03/2023 Jimmy Dillard MA documented in this encounterAdena Pike [facility] Center09-30-2022 Miscellaneous Notes* Telephone Encounter - Alejo Fletcher [...] daily. Alejo Fletcher MD documented in this [facility]05-24-2022 Miscellaneous Notes* Telephone Encounter - Judith Fuller LPN - 04/03/2022 2:19 PM EDT did call the Insurance company, the insurance company is saying the Lab made mistake. Lab submitted all her labs a medical, 2 were medical because they were for a dx diabetes and kidney function, the other 2 were for routine physical. Gave Jonas, number for billing. He is also asking to talk to Kat Clark/Admin, called transferred to Medical Officer. Judith Fuller LPN * Telephone Encounter - [...] advise, Dotty Herring RN documented in this encounterAdena [facility]ike [facility] Center03-29-2022 Miscellaneous Notes* Letter - Mammography Coordinator - 02/06/2022 4:38 PM EDT February 06, 2022 PID: [id number] Juan R Pollack [address] [place] [address] Dear Ms. Nataliia Pollack, We are pleased [...] report [facility] as part of your permanent medical record and are available for your continuing care. Thank you for allowing us to help in meeting your health care needs. Sincerely, Dr. Taylor Interpreting Radiologist [facility] (Normal over 40) documented in this encounterA[facility]03-29-2022 Miscellaneous Notes* Telephone Encounter - Rosangela Wynn [...] the stable kidney impairment. documented in this encounterAdena [facility] Center03-29-2022 History of Present illness Narrative* Earnestine Winter E-Blink - 02/06/2022 7:30 AM EDT Radiology Service [...] DATA: Not applicable SIGNED BY: Earnestine Winter E-Blink February 06, 2022 7:31 AM documented in this encounterAdena [facility]03-28-2022 History of Present illness Narrative* Tanya Brar [...] L1 SAB0 IAB0 Ectopic0 Multiple0 Live Births0 Finishing Room Operator History LMP: Hysterectomy Age at Menarche: Age at First : Age at Menopause: Finishing Room Operator History Comments: Sexual Activity: Yes; Male; hysterectomy Contraception: Surgical PAST MEDICAL HISTORY Diagnosis Date Adjustment disorder with depressed mood 01/14/2008 Calculus of kidney CKD (chronic kidney disease) stage 3, GFR 30-59 ml/min ([facility]) 10/29/[address] Storey COPD (Chronic Obstructive [...] no masses PELVIC: normal Bartholin's glands, urethra, [place]'s glands, no vulvar lesions, physiologic discharge present, [...] needed Tanya Brar MD documented in this encounterAdena [facility]03-26-2022 History of Present illness Narrative* Alejo Fletcher MD - 02/03/2022 10:31 AM EDT Chief Complaint Patient presents with: Physical HPI Juan R Pollack is a 56 year old female who presents here today for Above Complaints. and Chronic Medical Conditions.. Patient with hx of CKD seeing renal, diverticulosis, IBS, COPD, as well as those reviewed and addressed below. Patient was [facility] ER in 10/2021 due to renal stone. Had CT that also showed a lung nodule andneeds f/u CT in 6-12 months. Past medical history, appointments, medications, allergies reviewed. Previous Medical History PAST MEDICAL HISTORY Diagnosis Date Adjustment disorder with depressed mood 01/14/2008 Calculus of kidney CKD (chronic kidney disease) stage 3, GFR 30-59 ml/min ([facility]) 10/29/[address] Storey COPD (Chronic Obstructive [...] 2016 Years since quittin.2 Smokeless tobacco: Never Used [...] mg/day for 50+ - Patient was counseled [id number] by myself (the billing provider) for the [...] issues. Alejo Fletcher MD documented in this encounterAden[facility]03-09-2016 History of Past illness Narrative* Problem Noted [...] of this encounter (statuses as of 02/03/2022) [facility] of Past illness Narrative* Problem Noted [...] of this encounter (statuses as of 02/05/2022) [facility] of Past illness Narrative* Problem Noted [...] of this encounter (statuses as of 02/06/2022) [facility] of Past illness Narrative* Problem Noted [...] of this encounter (statuses as of 02/07/2022) [facility] of [facility] illness Narrative* Problem Noted [...] of this encounter (statuses as of 02/08/2022) [facility] of Past illness Narrative* Problem Noted [...] of this encounter (statuses as of 04/03/2022) [facility] illness Narrative* Problem Noted [...] of this encounter (statuses as of 08/10/2022) [facility] of [facility] illness Narrative* Problem Noted [...] of this encounter (statuses as of 08/14/2022) [facility] illness Narrative* Problem Noted [...] of this encounter (statuses as of 02/06/2023) [facility] illness Narrative* Problem Noted [...] of this encounter (statuses as of 02/07/2023) [facility] illness Narrative* Problem Noted [...] of this encounter (statuses as of 02/09/2023) [facility] illness Narrative* Problem Noted [...] of this encounter (statuses as of 02/15/2023) [facility] illness Narrative* Problem Noted [...] of this encounter (statuses as of 02/28/2023) [facility] illness Narrative* Problem Noted [...] of this encounter (statuses as of 04/18/2023) [facility] Narrative* Problem Noted [...] of this encounter (statuses as of 07/28/2023) [facility] Narrative* Problem Noted [...] of this encounter (statuses as of 08/09/2023) [facility] Narrative* Problem Noted [...] of this encounter (statuses as of 09/15/2023) [facility] of [facility] illness Narrative* Problem Noted Date Diagnosed Date Resolved Date Smoker 01/18/2016 12/21/2016 Overview: Quit 2011. Smoked for about 20 yrs up to 1 PPD, restarted 2016 Encounter for screening for malignant neoplasm of [...] of this encounter (statuses as of 01/16/2024) [facility] of Past illness Narrative* Problem Noted [...] of this encounter (statuses as of 01/16/2024) [facility] illness Narrative* Problem Noted Date Diagnosed Date Resolved Date Smoker 01/18/2016 12/21/2016 Overview: Quit 2011. Smoked for about 20 yrs up to 1 PPD, restarted 2016 Encounter for screening for malignant neoplasm of [...] of this encounter (statuses as of 01/27/2024) [facility] illness Narrative* Problem Noted [...] of this encounter (statuses as of 01/28/2024) [facility] of [facility] illness Narrative* Problem Noted [...] finding 12/29/2005 01/14/2008 Tobacco use disorder 12/29/2005 05/22/2 010 CHEST PAIN UNSPECIFIED 12/29/200501/13 History of cervical cancer 11/11/1998 0 05/23/2020 documented as of this encounter (statuses as of 01/29/2024) [facility]* Diagnosis Well adult exam- Primary Routine [...] for lipoid disorders documented in this encounter [facility]* Diagnosis Encounter for gynecological examination (general) (routine) without abnormal findings Encounter for screening mammogram for breast cancer documented in this encounter [facility]* Diagnosis Elevated hemoglobin A1c Other abnormal blood chemistry documented in this encounter [facility] CenterD[facility]life[facility]* Diagnosis Encounter for gynecological examination (general) (routine) without abnormal findings Encounter for screening mammogram for breast cancer documented in this encounter [facility] CenterEvaluation noteNo assessment information availableWMercy Health [facility] Work Phone: evaluProgression [facility] note* Diagnosis Encounter for gynecological examination with abnormal finding- Primary Routine gynecological examination Encounter for screening mammogram for breast cancer Lichen sclerosus et atrophicus Circumscribed scleroderma documented in this encounter [facility]* Diagnosis Onset Date Resolution Status Kidney stones [facility] Work Phone: evaluation note* Diagnosis Calculus of kidney [facility]* Diagnosis Encounter for screening mammogram for malignant neoplasm of breast Other screening mammogram documented in this encounter [facility]* Diagnosis Well adult exam- Primary Routine [...] behavior of skin documented in this encounter [facility]* Diagnosis Ex-smoker- Primary Personal history of tobacco use, presenting hazards to health Lung nodule Solitary pulmonary nodule Lung nodules Other nonspecific abnormal finding of lung field documented in this encounter [facility]* Diagnosis AK (actinic keratosis) Actinic keratosis documented in this encounter [facility]* Diagnosis Ex-smoker Personal history of tobacco use, presenting hazards to health Lung nodule Solitary pulmonary nodule Lung nodules Other nonspecific abnormal finding of lung field documented in this encounter [facility] note* Diagnosis Lung nodules Other nonspecific abnormal finding of lung field documented in this encounter [facility]* Diagnosis Encounter for screening mammogram for breast cancer documented in this encounter [facility]* Diagnosis Epigastric pain- Primary Abdominal pain, epigastric Diarrhea, unspecified type documented in this encounter [facility] note* Diagnosis Encounter for screening mammogram for breast cancer documented in this encounter [facility]* Diagnosis Diarrhea, unspecified type- Primary documented in this encounter [facility] note* Diagnosis Screen for colon cancer- Primary Special screening for malignant neoplasms, colon Diarrhea, unspecified type documented in this encounter [facility]* Diagnosis Encounter for screening for malignant neoplasm of colon- Primary Special screening for malignant neoplasms, colon Diarrhea, unspecified type Screen for colon cancer Special screening for malignant neoplasms, colon documented in this encounter [facility]* Diagnosis Collagenous colitis- Primary Other and unspecified noninfectious gastroenteritis and colitis documented in this encounter [facility] note* Diagnosis Encounter for gynecological examination (general) (routine) without abnormal findings- Primary Encounter for screening mammogram for breast cancer documented in this encounter [facility]* Diagnosis Diarrhea, unspecified type- Primary documented in this encounter [facility] Discharge instructions Additional Instructions Implant Used?: [facility] Work Phone: Reason for referral (narrative)* Diagnostic Procedure Only (Routine) - Authorized Specialty Diagnoses / Procedures Referred By Dg mcclelland Referred To Contact [facility] Diagnoses Encounter for gynecological examination (general) (routine) without abnormal findings Encounter for screening mammogram for breast cancer Procedures MEAGHAN SCREENING SCREENING MAMMOGRAPHY BI 2-VIEW BREAST INC CAD Tanya Brar MD [address] [place] [address] [facility] [address] [place] [address] Referral ID Status Reason Start Date Expiration Date Visits Requested Visits Authorized [id number] Authorized Auto-Generat ed Referral 02/05/2022 11/10/2022 1 1 T [facility] for referral (narrative)* Diagnostic Procedure Only (Routine) - Closed Specialty Diagnoses / Procedures Referred By Contac t Referred To Contact [facility] Diagnoses Encounter for gynecological examination (general) (routine) without abnormal findings Encounter for screening mammogram for breast cancer Procedures MEAGHAN SCREENING SCREENING MAMMOGRAPHY BI 2-VIEW BREAST INC Tanya Navarro MD [address] [place] [address] [facility] [address] [place] [address] Referral ID Status Reason Start Date Expiration Date V isits Requested Visits Authorized [id number] Closed Auto-Generate d Referral 02/05/2022 11/10/2022 1 1 T [facility] for referral (narrative)* Diagnostic Procedure Only (Routine) - Pending Review Specialty Diagnoses / Procedures Referred By Dg mcclelland Referred To Contact [facility] Diagnoses Encounter for gynecological examination (general) (routine) without abnormal findings Encounter for screening mammogram for breast cancer Procedures MEAGHAN SCREENING SCREENING MAMMOGRAPHY BI 2-VIEW BREAST INC Tanya Navarro MD [address] [place] [address] [facility] [address] [place] [address] Referral ID Status Reason Start Date Expiration Date Visits Requested Visits Authorized [id number] Pending Review Auto-Generat ed Referral 02/06/2023 03/07/[address] [facility] for referral (narrative)* Diagnostic Procedure Only (Routine) - Closed Specialty Diagnoses / Procedures Referred By Cassandraac t Referred To Contact [facility] Diagnoses Encounter for screening mammogram for malignant neoplasm of breast Procedures MEAGHAN SCREENING SCREENING MAMMOGRAPHY BI 2-VIEW BREAST INC CAD Jia Alvarado APRN.CNP [address] [place] [address] [facility] [address] [place] [phone] Referral ID Status Reason Start Date Expiration Date V isits Requested Visits Authorized [id number] Closed Auto-Generate d Referral 12/10/2022 01/09/2024 1 1 [facility] for referral (narrative)* Diagnostic Procedure Only (Routine) - Pending Review Specialty Diagnoses / Procedures Referred By Contac t Referred To Contact [facility] Diagnoses Encounter for screening mammogram for breast cancer Procedures MEAGHAN SCREENING SCREENING MAMMOGRAPHY BI 2-VIEW BREAST INC CAD Alejo Fletcher MD [address] [place] [address] [facility] [address] [place] [phone] Referral ID Status Reason Start Date Expiration Date Visits Requested Visits Authorized [id number] Pending Review Auto-Generat ed Referral 03/11/2024 04/10/2025 1 1 T [facility] for referral (narrative)* Outpatient Procedure (Routine) - Authorized Specialty Diagnoses / Procedures Referred By Contac t Referred To Contact [facility] Diagnoses Diarrhea, unspecified type Screen for colon cancer Procedures COLONOSCOPY DIAGNOSTIC COLONOSCOPY FLX DX W/COLLJ SPEC WHEN Tana De Jesus APRN.CNP [address] [facility] [place] [address] [facility] [address] [place] [id number] Referral ID Status Reason Start Date Expiration Date Visits Requested Visits Authorized [id number] Authorized Auto-Generat ed Referral 07/24/2024 07/24/2025 1 1 [facility] for referral (narrative)* Outpatient Procedure (Routine) - Closed Specialty Diagnoses / Procedures Referred By Dg mcclelland Referred To Contact [facility] Diagnoses Diarrhea, unspecified type Screen for colon cancer Procedures COLONOSCOPY DIAGNOSTIC COLONOSCOPY FLX DX W/COLLJ SPEC WHEN Tana De Jesus APRN.CNP [address] [place] [address] [facility] [address] [place] [address] Referral ID Status Reason Start Date Expiration Date V isits Requested Visits Authorized [id number] Closed Auto-Generate d Referral 07/24/2024 07/24/2025 1 1 [facility] for referral (narrative)* Diagnostic Procedure Only (Routine) - Pending Review Specialty Diagnoses / Procedures Referred By Dg mcclelland Referred To Contact [facility] Diagnoses Encounter for gynecological examination (general) (routine) without abnormal findings Encounter for screening mammogram for breast cancer Procedures MEAGHAN SCREENING W ATTILA SCREENING DIGITAL BREAST TOMOSYNTHESIS BI SCREENING MAMMOGRAPHY BI 2-VIEW BREAST INC Tanya Navarro MD [address] [place] [address] [facility] [address] [place] [address] Referral ID Status Reason Start Date Expiration Date Visits Requested Visits Authorized [id number] Pending Review Auto-Generat ed Referral 11/25/2024 12/25/2025 1 1 [facility] for referral (narrative)No reason for referral information availableWMercy Health [facility] Work Phone: Rejvpa for visit Narrative* Diagnostic Procedure Only (Routine) - Closed Specialty Diagnoses / Procedures Referred By Dg mcclelland Referred To Contact [facility] Diagnoses Encounter for gynecological examination (general) (routine) without abnormal findings Encounter for screening mammogram for breast cancer Procedures MEAGHAN SCREENING SCREENING MAMMOGRAPHY BI 2-VIEW BREAST INC Tanya Navarro MD [address] [place] [address] [facility] [address] [place] [address] Referral ID Status Reason Start Date Expiration Date V isits Requested Visits Authorized [id number] Closed Auto-Generate d Referral 02/05/2022 11/10/2022 1 1 [facility] for visit Narrative* Diagnostic Procedure Only (Routine) - Closed Specialty Diagnoses / Procedures Referred By Contac t Referred To Contact [facility] Diagnoses Encounter for screening mammogram for malignant neoplasm of breast Procedures MEAGHAN SCREENING SCREENING MAMMOGRAPHY BI 2-VIEW BREAST INC CAD Jia Alvarado, SHOE CLERK.CABINET INSTALLER [address] [place] [address] [facility] [address] [place] [address] Referral ID Status Reason Start Date Expiration Date V isits Requested Visits Authorized [id number] Closed Auto-Generate d Referral 12/10/2022 01/09/2024 1 1 [facility] for visit Narrative* Diagnostic Procedure Only (Routine) - Closed Specialty Diagnoses / Procedures Referred By Contac t Referred To Contact [facility] Diagnoses Encounter for screening mammogram for breast cancer Procedures MEAGHAN SCREENING SCREENING MAMMOGRAPHY BI 2-VIEW BREAST INC CAD Alejo Fletcher MD [address] [place] [address] [facility] [address] [place] [id number] Referral ID Status Reason Start Date Expiration Date V isits Requested Visits Authorized [id number] Closed Auto-Generate d Referral 03/11/2024 04/10/2025 1 1 [facility] for visit Narrative* Outpatient Procedure (Routine) - Closed Specialty Diagnoses / Procedures Referred By Contac t Referred To Contact [facility] Diagnoses Diarrhea, unspecified type Screen for colon cancer Procedures COLONOSCOPY DIAGNOSTIC COLONOSCOPY FLX DX W/COLLJ SPEC WHEN Tana De Jesus, SHOE CLERK.CABINET INSTALLER [address] [place] [address] [facility] [address] [place] [id number] Referral ID Status Reason Start Date Expiration Date V isits Requested Visits Authorized [id number] Closed Auto-Generate d Referral 07/24/2024 07/24/2025 1 1 [facility] Summary Purpose Family History No Family History Records Found Relationship Condition Age at Onset Recorded Date/T deepthi mother Malignant neoplasm Unknown father Hypertension Unknown Kidney disorder Unknown brother Prediabetes Unknown Advance Directives No Advanced Directives Records Found Advance Directive Response Recorded Date/ Time Advance Directives Yes October 5:16pm Living Will Yes November 08 6:13am Power of Preschool Paraprofessional Yes November 08, 2021 6:13am Advance Directive Response Recorded Date/ Time Advance Directives Yes October 5:16pm Living Will No December 25 5:17am Power of Preschool Paraprofessional No December 25, 2022 5:17am Advance Directive Response Recorded Date/ Time Advance Directives Yes October 5:16pm Living Will No February 01, 2023 3:06pm Power of Preschool Paraprofessional No February 01 3:06pm Advance Directive Response Recorded Date/ Time Advance Directives Yes October 5:16pm Living Will No March 21, 2023 1 :07pm Power of Preschool Paraprofessional No March 21, 2023 1:07pm Advance Directive Response Recorded Date/ Time Advance Directives Yes October 4:16pm Living Will No March 21, 2023 1 2:07pm Power of Preschool Paraprofessional No March 21, 2023 12:07pm Advance Directive Response Recorded Date/ Time Living Will No November 07 10:44am Power of Preschool Paraprofessional No November 07, 2024 10:44am Advance Directives Yes October 4:16pm Advance Directive Response Recorded Date/ Time Living Will No November 07 11:44am Power of Preschool Paraprofessional No November 07, 2024 11:44am Advance Directives Yes October 5:16pm Advance Directive Response Recorded Date/ Time Living Will No November 07 11:44am Do you have a Healthcare Power of Preschool Paraprofessional? No November 07, 2024 11:44am Advance Directives Yes October 5:16pm Advance Directive Response Recorded Date/ Time Advance Directives Yes October 5:16pm Reason for Referral Specialty Diagnoses / Procedures Referred By Dg t Referred To Contact CT IMAGING Diagnoses Lung nodule Ex-smoker Lung nodules Procedures CT CHEST WO IVCON DIAGNOSTIC COMPUTED TOMOGRAPHY THORAX W/O CNTRST Alejo Fletcher MD [address] [place] [address] Ct Imaging Referral ID Status Reason Start Date Expiration Date Visits Requested Visits Authorized [id number] Pending Review Auto-Generat ed Referral 03/05/2023 1 1 Specialty Diagnoses / Procedures Referred By Contac t Referred To Contact CT IMAGING Diagnoses Ex-smoker Lung nodule Lung nodules Procedures CT CHEST WO IVCON DIAGNOSTIC COMPUTED TOMOGRAPHY THORAX W/O CNTRST Alejo Fletcher MD [address] [place] [address] [place] [address] Referral ID Status Reason Start Date Expiration Date Visits Requested Visits Authorized [id number] Additional Clinical Info Needed Auto-Generat ed Referral 01/16/2024 02/14/2025 1 1 Specialty Diagnoses / Procedures Referred By Contac t Referred To Contact General Surgery Diagnoses Diarrhea, unspecified type Procedures CONSULT TO GENERAL SURGERY OFFICE/OUTPATIENT [facility] 60 MINUTES Alejo Fletcher MD [address] [place] [address] Referral ID Status Reason Start Date Expiration Date Visits Requested Visits Authorized [id number] Authorized PCP Requested Referral 07/14/2024 07/13/2025 1 [...] CHEST PAIN April 01, 2025 6:20a m Chief Complaint Admit Date CORONARY CALCIFICATIONS (DEONDRE) February 11:13am INT LABS March 25, 2025 6:08a m CHEST PAIN April 01, 2025 6:20a m Unspecified abdominal pain June 21, 2025 4:42pm Chief Complaint Admit Date Unspecified abdominal pain June 21, 2025 4:42pm FATTY LIVER July 26, 2025 7:42am Additional Source Comments INFORMATION SOURCE (unrecogn ized section and content) DATE CREATED AUTHOR 06/23/2020 [facility] DATE CREATED AUTHOR AUTHOR'S ORGANIZ ATION 02/20/2021 [facility] DATE CREATED AUTHOR AUTHOR'S ORGANIZ ATION 01/26/2025 [facility] DATE CREATED AUTHOR AUTHOR'S ORGANIZ ATION 08/19/2025 [facility] Source Comments (unrecognize d section and content) In the event this informatio n is protected by the Federal Confidentiality of Alcohol and Drug Abuse Patient Records regulations: The Federal rules restrict any use of the information to criminally investigate or prosecute any alcohol or drug abuse patient.[facility] the event this information is protected by the Federal Confidentiality of Alcohol and Drug Abuse Patient Records regulations: The Federal rules restrict any use of the information to criminally investigate or prosecute any alcohol or drug abuse patient.[facility] CenterIn the event this information is protected by the Federal Confidentiality of Alcohol and Drug Abuse Patient Records regulations: The Federal rules restrict any use of the information to criminally investigate or prosecute any alcohol or drug abuse patient.[facility] CenterIn the event this information is protected by the Federal Confidentiality of Alcohol and Drug Abuse Patient Records regulations: The Federal rules restrict any use of the information to criminally investigate or prosecute any alcohol or drug abuse patient.[facility] CenterIn the event this information is protected by the Federal Confidentiality of Alcohol and Drug Abuse Patient Records regulations: The Federal rules restrict any use of the information to criminally investigate or prosecute any alcohol or drug abuse patient.[facility] CenterIn the event this information is protected by the Federal Confidentiality of Alcohol and Drug Abuse Patient Records regulations: The Federal rules restrict any use of the information to criminally investigate or prosecute any alcohol or drug abuse patient.[facility] CenterIn the event this information is protected by the Federal Confidentiality of Alcohol and Drug Abuse Patient Records regulations: The Federal rules restrict any use of the information to criminally investigate or prosecute any alcohol or drug abuse patient.[facility] CenterIn the event this information is protected by the Federal Confidentiality of Alcohol and Drug Abuse Patient Records regulations: The Federal rules restrict any use of the information to criminally investigate or prosecute any alcohol or drug abuse patient.[facility] CenterIn the event this information is protected by the Federal Confidentiality of Alcohol and Drug Abuse Patient Records regulations: The Federal rules restrict any use of the information to criminally investigate or prosecute any alcohol or drug abuse patient.[facility] CenterIn the event this information is protected by the Federal Confidentiality of Alcohol and Drug Abuse Patient Records regulations: The Federal rules restrict any use of the information to criminally investigate or prosecute any alcohol or drug abuse patient.[facility] CenterIn the event this information is protected by the Federal Confidentiality of Alcohol and Drug Abuse Patient Records regulations: The Federal rules restrict any use of the information to criminally investigate or prosecute any alcohol or drug abuse patient.[facility] CenterIn the event this information is protected by the Federal Confidentiality of Alcohol and Drug Abuse Patient Records regulations: The Federal rules restrict any use of the information to criminally investigate or prosecute any alcohol or drug abuse patient.[facility] CenterIn the event this information is protected by the Federal Confidentiality of Alcohol and Drug Abuse Patient Records regulations: The Federal rules restrict any use of the information to criminally investigate or prosecute any alcohol or drug abuse patient.[facility] CenterIn the event this information is protected by the Federal Confidentiality of Alcohol and Drug Abuse Patient Records regulations: The Federal rules restrict any use of the information to criminally investigate or prosecute any alcohol or drug abuse patient.[facility] CenterIn the event this information is protected by the Federal Confidentiality of Alcohol and Drug Abuse Patient Records regulations: The Federal rules restrict any use of the information to criminally investigate or prosecute any alcohol or drug abuse patient.[facility] CenterIn the event this information is protected by the Federal Confidentiality of Alcohol and Drug Abuse Patient Records regulations: The Federal rules restrict any use of the information to criminally investigate or prosecute any alcohol or drug abuse patient.[facility] CenterIn the event this information is protected by the Federal Confidentiality of Alcohol and Drug Abuse Patient Records regulations: The Federal rules restrict any use of the information to criminally investigate or prosecute any alcohol or drug abuse patient.[facility] CenterIn the event this information is protected by the Federal Confidentiality of Alcohol and Drug Abuse Patient Records regulations: The Federal rules restrict any use of the information to criminally investigate or prosecute any alcohol or drug abuse patient.[facility] CenterIn the event this information is protected by the Federal Confidentiality of Alcohol and Drug Abuse Patient Records regulations: The Federal rules restrict any use of the information to criminally investigate or prosecute any alcohol or drug abuse patient.[facility] CenterIn the event this information is protected by the Federal Confidentiality of Alcohol and Drug Abuse Patient Records regulations: The Federal rules restrict any use of the information to criminally investigate or prosecute any alcohol or drug abuse patient.[facility] CenterIn the event this information is protected by the Federal Confidentiality of Alcohol and Drug Abuse Patient Records regulations: The Federal rules restrict any use of the information to criminally investigate or prosecute any alcohol or drug abuse patient.[facility] CenterIn the event this information is protected by the Federal Confidentiality of Alcohol and Drug Abuse Patient Records regulations: The Federal rules restrict any use of the information to criminally investigate or prosecute any alcohol or drug abuse patient.[facility] CenterIn the event this information is protected by the Federal Confidentiality of Alcohol and Drug Abuse Patient Records regulations: The Federal rules restrict any use of the information to criminally investigate or prosecute any alcohol or drug abuse patient.[facility] CenterIn the event this information is protected by the Federal Confidentiality of Alcohol and Drug Abuse Patient Records regulations: The Federal rules restrict any use of the information to criminally investigate or prosecute any alcohol or drug abuse patient.[facility] CenterIn the event this information is protected by the Federal Confidentiality of Alcohol and Drug Abuse Patient Records regulations: The Federal rules restrict any use of the information to criminally investigate or prosecute any alcohol or drug abuse patient.[facility] CenterIn the event this information is protected by the Federal Confidentiality of Alcohol and Drug Abuse Patient Records regulations: The Federal rules restrict any use of the information to criminally investigate or prosecute any alcohol or drug abuse patient.[facility] CenterIn the event this information is protected by the Federal Confidentiality of Alcohol and Drug Abuse Patient Records regulations: The Federal rules restrict any use of the information to criminally investigate or prosecute any alcohol or drug abuse patient.[facility] CenterIn the event this information is protected by the Federal Confidentiality of Alcohol and Drug Abuse Patient Records regulations: The Federal rules restrict any use of the information to criminally investigate or prosecute any alcohol or drug abuse patient.[facility] CenterIn the event this information is protected by the Federal Confidentiality of Alcohol and Drug Abuse Patient Records regulations: The Federal rules restrict any use of the information to criminally investigate or prosecute any alcohol or drug abuse patient.[facility] CenterIn the event this information is protected by the Federal Confidentiality of Alcohol and Drug Abuse Patient Records regulations: The Federal rules restrict any use of the information to criminally investigate or prosecute any alcohol or drug abuse patient.[facility] CenterIn the event this information is protected by the Federal Confidentiality of Alcohol and Drug Abuse Patient Records regulations: The Federal rules restrict any use of the information to criminally investigate or prosecute any alcohol or drug abuse patient.[facility] CenterIn the event this information is protected by the Federal Confidentiality of Alcohol and Drug Abuse Patient Records regulations: The Federal rules restrict any use of the information to criminally investigate or prosecute any alcohol or drug abuse patient.[facility] CenterIn the event this information is protected by the Federal Confidentiality of Alcohol and Drug Abuse Patient Records regulations: The Federal rules restrict any use of the information to criminally investigate or prosecute any alcohol or drug abuse patient.[facility] CenterIn the event this information is protected by the Federal Confidentiality of Alcohol and Drug Abuse Patient Records regulations: The Federal rules restrict any use of the information to criminally investigate or prosecute any alcohol or drug abuse patient.[facility] CenterIn the event this information is protected by the Federal Confidentiality of Alcohol and Drug Abuse Patient Records regulations: The Federal rules restrict any use of the information to criminally investigate or prosecute any alcohol or drug abuse patient.[facility] CenterIn the event this information is protected by the Federal Confidentiality of Alcohol and Drug Abuse Patient Records regulations: The Federal rules restrict any use of the information to criminally investigate or prosecute any alcohol or drug abuse patient.[facility] CenterIn the event this information is protected by the Federal Confidentiality of Alcohol and Drug Abuse Patient Records regulations: The Federal rules restrict any use of the information to criminally investigate or prosecute any alcohol or drug abuse patient.[facility] CenterIn the event this information is protected by the Federal Confidentiality of Alcohol and Drug Abuse Patient Records regulations: The Federal rules restrict any use of the information to criminally investigate or prosecute any alcohol or drug abuse patient.[facility] CenterIn the event this information is protected by the Federal Confidentiality of Alcohol and Drug Abuse Patient Records regulations: The Federal rules restrict any use of the information to criminally investigate or prosecute any alcohol or drug abuse patient.[facility] CenterIn the event this information is protected by the Federal Confidentiality of Alcohol and Drug Abuse Patient Records regulations: The Federal rules restrict any use of the information to criminally investigate or prosecute any alcohol or drug abuse patient.[facility] CenterIn the event this information is protected by the Federal Confidentiality of Alcohol and Drug Abuse Patient Records regulations: The Federal rules restrict any use of the information to criminally investigate or prosecute any alcohol or drug abuse patient.[facility] CenterIn the event this information is protected by the Federal Confidentiality of Alcohol and Drug Abuse Patient Records regulations: The Federal rules restrict any use of the information to criminally investigate or prosecute any alcohol or drug abuse patient.[facility] Reason for Visit (unrecogniz ed section and content) Reason Comments Physical Specialty Diagnoses / Procedures Referred By Contac t Referred To Contact Family Practice / FAMILY MEDICINE Diagnoses Encounter for follow-up examination after completed treatment for conditions other than malignant neoplasm Yearly checkup Procedures OFFICE/OUTPATIENT ESTABLISHED MOD MDM 30-39 MIN MYC PHYSICAL Justine Sanders MD [address] [place] [address] Alejo Fletcher MD [address] [place] [address] Referral ID Status Reason Start Date Expiration Date Visits Re quested Visits Authorized [id number] Closed 11/11/2021 11/10/2022 1 1 Reason Comments Yearly Exam Specialty Diagnoses / Procedures Referred By Contac t Referred To Contact CHECK EXAMINER Diagnoses Annual physical exam Annual Procedures OFFICE/OUTPATIENT ESTABLISHED MOD MDM 30-39 MIN EST [facility] ANNUAL PATIENT Self Tanya Brar MD [address] [place] [address] Referral ID Status Reason Start Date Expiration Date Visits Re quested Visits Authorized [id number] Closed 11/11/2021 11/10/2022 1 1 Reason Comments Results Reason Comments Patient Question Reason Comments Appointment Reason Comments Yearly Exam With Mammogram Specialty Diagnoses / Procedures Referred By Contac t Referred To Contact CHECK EXAMINER Diagnoses annual Procedures WELLNESS EXAMS EST 40-64 YRS EST [facility] ANNUAL PATIENT Cait James MD [address] [place] [address] Tanya Brar MD [address] [place] [address] Referral ID Status Reason Start Date Expiration Date Visits Re quested Visits Authorized [id number] Closed 12/31/2022 11/10/2023 1 1 Reason Comments XRay Report Reason Comments ext document labs Reason Comments Physical Reason Comments Results Reason Comments Lesion Removal Specialty Diagnoses / Procedures Referred By Contac t Referred To Contact CT IMAGING Diagnoses Ex-smoker Lung nodule Lung nodules Procedures CT CHEST WO IVCON DIAGNOSTIC COMPUTED TOMOGRAPHY THORAX W/O CNTRST Alejo Fletcher MD [address] [place] [address] [place] [address] Referral ID Status Reason Start Date Expiration Date V isits Requested Visits Authorized [id number] Closed Auto-Generate d Referral 01/20/2024 03/05/2024 1 1 Reason Onset Date Comments Refill Request 06/28/2024 Reason Comments Follow Up Reason Comments Question Results Reason Comments Consult Diarrhea, fecal WBC positive Specialty Diagnoses / Procedures Referred By Dg mcclelland Referred To Contact General Surgery Diagnoses Diarrhea, unspecified type Procedures CONSULT TO GENERAL SURGERY OFFICE/OUTPATIENT [facility] HIGH MDM 60 MINUTES Alejo Fletcher MD [address] [place] [address] Referral ID Status Reason Start Date Expiration Date V isits Requested Visits Authorized [id number] Closed PCP Requested Referral 07/14/2024 07/13/2025 1 1 Reason Comments Follow Up colonoscopy Reason Comments Established Patient Diarrhea Patient reports righ t upper quadrant and flank pain intermittently. Reason Comments Outside [facility] Ordered Reason Comments Outside Nephrology Reason Comments Results Outside/CT Reason Comments Results Outside labs Reason Comments Orders Care Teams (unrecognized sec tion and content) Focuser Relationship Specialty Start Date End Date Alejo Fletcher MD [address] [place] [address] PCP - General Family Practice 01/18/16 Focuser Relationship Specialty Start Date End Date Alejo Fletcher MD [address] [place] [address] PCP - General Family Practice 01/18/16 Focuser Relationship Specialty Start Date End Date Alejo Fletcher MD [address] [place] [address] PCP - General Family Practice 01/18/16 Focuser Relationship Specialty Start Date End Date Alejo Fletcher MD [address] [place] [address] PCP - General Family Practice 01/18/16 Focuser Relationship Specialty Start Date End Date Alejo Fletcher MD [address] [place] [address] PCP - General Family Practice 01/18/16 Focuser Relationship Specialty Start Date End Date Alejo Fletcher MD [address] [facility] [place] [place] [address] PCP - General Family Practice 01/18/16 Focuser Relationship Specialty Start Date End Date Alejo Fletcher MD [address] [facility] [place] [address] PCP - General Family Medicine 01/18/16 Focuser Relationship Specialty Start Date End Date Alejo Fletcher MD [address] [facility] [place] [place] [address] PCP - General Family Medicine 01/18/16 Team Status: Active Member Role Status Dates Dr. Alejo Fletcher MD Family Provider Active Dr. Alejo Fletcher MD Primary Care Provider Active Team Status: Inactive Member Role Status Dates Dr. Alejo Fletcher MD Primary Care Provider Active Dr. Pooja Ac DO Attending Provider, Emergency P rovider Active Team Status: Inactive Member Role Status Dates Dr. Alejo Fletcher MD Primary Care Provider Active Dr. Avelina Rios MD Attending Provider, Referring P rovider Active Focuser Relationship Specialty Start Date End Date Alejo Fletcher MD [address] [place] [address] PCP - General Family Medicine 01/18/16 Focuser Relationship Specialty Start Date End Date Alejo Fletcher MD [address] [place] [address] PCP - General Family Medicine 01/18/16 Focuser Relationship Specialty Start Date End Date Alejo Fletcher MD [address] [facility] [place] [address] PCP - General Family Medicine 01/18/16 Focuser Relationship Specialty Start Date End Date Alejo Fletcher MD [address] [facility] [place] [place] [address] PCP - General Family Medicine 01/18/16 Focuser Relationship Specialty Start Date End Date Alejo Fletcher MD [address] [facility] [place] [place] [address] PCP - General Family Medicine 01/18/16 Team Status: Inactive Member Role Status Dates Dr. Alejo Fletcher MD Primary Care Provider Active Dr. Arlette Storey DO Attending Provider, Mihir daniel Active Focuser Relationship Specialty Start Date End Date Alejo Fletcher MD [address] [facility] [place] [address] PCP - General Family Medicine 01/18/16 Focuser Relationship Specialty Start Date End Date Alejo Fletcher MD [address] [facility] [place] [place] [address] PCP - General Family Medicine 01/18/16 Focuser Relationship Specialty Start Date End Date Alejo Fletcher MD [address] [facility] [place] [place] [address] PCP - General Family Medicine 01/18/16 Focuser Relationship Specialty Start Date End Date Alejo Fletcher MD [address] [facility] [place] [place] [address] PCP - General Family Medicine 01/18/16 Focuser Relationship Specialty Start Date End Date Alejo Fletcher MD [address] [facility] [place] [place] [address] PCP - General Family Medicine 01/18/16 Focuser Relationship Specialty Start Date End Date Alejo Fletcher MD [address] [facility] [place] [address] PCP - General Family Medicine 01/18/16 Focuser Relationship Specialty Start Date End Date Alejo Fletcher MD [address] [place] [address] PCP - General Family Medicine 01/18/16 Focuser Relationship Specialty Start Date End Date Alejo Fletcher MD [address] [place] [address] PCP - General Family Medicine 01/18/16 Focuser Relationship Specialty Start Date End Date Alejo Fletcher MD [address] [place] [address] PCP - General Family Medicine 01/18/16 Focuser Relationship Specialty Start Date End Date Alejo Fletcher MD [address] [place] [address] PCP - General Family Medicine 01/18/16 Focuser Relationship Specialty Start Date End Date Alejo Fletcher MD [address] [place] [address] PCP - General Family Medicine 01/18/16 Focuser Relationship Specialty Start Date End Date Alejo Fletcher MD [address] [place] [address] PCP - General Family Medicine 01/18/16 Focuser Relationship Specialty Start Date End Date Alejo Fletcher MD [address] [place] [address] PCP - General Family Medicine 01/18/16 Focuser Relationship Specialty Start Date End Date Alejo Fletcher MD [address] [place] [address] PCP - General Family Medicine 01/18/16 Focuser Relationship Specialty Start Date End Date Alejo Fletcher MD [address] [place] [address] PCP - General Family Medicine 01/18/16 Focuser Relationship Specialty Start Date End Date Alejo Fletcher MD [address] [place] [address] PCP - General Family Medicine 01/18/16 Focuser Relationship Specialty Start Date End Date Alejo Fletcher MD [address] [place] [address] PCP - General Family Medicine 01/18/16 Jia Alvarado, SHOE CLERK.CABINET INSTALLER [address] [place] [address] [facility] 10/17/24 Xochilt Rodriguez PA-C [address] [place] [address] [facility] 10/17/24 Focuser Relationship Specialty Start Date End Date Alejo Fletcher MD [address] [place] [address] PCP - General Family Medicine 01/18/16 Jia Alvarado, SHOE CLERK.CABINET INSTALLER [address] [place] [address] [facility] 10/17/24 Xochilt Rodriguez PA-C [address] [place] [address] [facility] 10/17/24 Focuser Relationship Specialty Start Date End Date Alejo Fletcher MD [address] [place] [address] PCP - General Family Medicine 01/18/16 Jia Alvarado APRN.CABINET INSTALLER [address] [place] [address] [facility] [employer] 10/17/24 Xochilt Rodriguez PA-C [address] [place] [address] [facility] Focuser Relationship Specialty Start Date End Date Alejo Fletcher MD [address] [place] [address] PCP - General Family Medicine 01/18/16 Jia Alvarado APRN.CABINET INSTALLER [address] [place] [id number] [facility] Xochilt Rodriguez PA-C [address] [place] [address] [facility] 10/17/24 Team Status: Active Member Role Status [...] Attending Provider Active Start: April 01, 2025 Team Status: Active Member Role/Relationship Status Dates Dr. Chavo Mendosa MD Primary Care Provider Active Team Status: Inactive Member Role/Relationship Status Dates Dr. Chavo Mendosa MD Primary Care Provider Active Start: March 09, 2025 End: March 09, 2025 Dr. Chavo Mendosa MD Referring Provider Active Start: March 09, 2025 End: March 09, 2025 Dr. Anna Ragsdale MD Attending Provider Active Start: March 09, 2025 End: March 09, 2025 Team Status: Inactive Member Role/Relationship Status Dates Dr. Arlette Storey DO Attending [...] March 25, 2025 Team Status: Inactive Member Role/Relationship Status Dates Dr. Chavo Mendosa MD Primary Care Provider Active Start: April 01, 2025 End: April 01, 2025 Dr. Anna Ragsdale MD Attending Provider Active Start: April 01, 2025 End: April 01, 2025 Dr. Anna Ragsdale MD Referring Provider Active Start: April 01, 2025 End: April 01, 2025 Team Status: Active Member Role/Relationship Status Dates Dr. Chavo Mendosa MD Primary Care Provider Active Start: April 01, 2025 Dr. Anna Ragsdale MD Attending Provider Active Start: April 01, 2025 Team Status: Inactive Member Role/Relationship Status Dates Dr. Chavo Mendosa MD Primary Care Provider Active Start: May 11, 2025 Dr. Avelina Rios MD Attending Provider Active Start: May 11, 2025 Team Status: Inactive Member Role/Relationship Status Dates Dr. Chavo Mendosa MD Primary Care Provider Active Start: June 21, 2025 End: June 21, 2025 Dr. Chavo Mendosa MD Attending Provider Active Start: June 21, 2025 End: June 21, 2025 Dr. Chavo Mendosa MD Referring Provider Active Start: June 21, 2025 End: June 21, 2025 Team Status: Active Member Role/Relationship Status Dates Dr. Chavo Mendosa MD Primary Care Provider Active Start: June 22, 2025 Dr. Chavo Mendosa MD Attending Provider Active Start: June 22, 2025 Dr. Chavo Mendosa MD Referring Provider Active Start: June 22, 2025 Team Status: Inactive Member Role/Relationship Status Dates Dr. Chavo Mendosa MD Primary Care Provider Active Start: June 22, 2025 End: June 22, 2025 Dr. Chavo Mendosa MD Attending Provider Active Start: June 22, 2025 End: June 22, 2025 Dr. Chavo Mendosa MD Referring Provider Active Start: June 22, 2025 End: June 22, 2025 Team Status: Active Member Role/Relationship Status Dates Dr. Chavo Mendosa MD Primary care physician Active Team Status: Inactive Member Role/Relationship Status Dates Dr. Chavo Mendosa MD Primary care physician Active Start: May 11, 2025 Dr. Avelina Rios MD Attending physician Active Start: May 11, 2025 Team Status: Inactive Member Role/Relationship Status Dates Dr. Chavo Mendosa MD Primary care physician Active Start: June 21, 2025 End: June 21, 2025 Dr. Chavo Mendosa MD Attending physician Active Start: June 21, 2025 End: June 21, 2025 Dr. Chavo Mendosa MD Referring Provider Active Start: June 21, 2025 End: June 21, 2025 Team Status: Inactive Member Role/Relationship Status Dates Dr. Chavo Mendosa MD Primary care physician Active Start: June 22, 2025 End: June 22, 2025 Dr. Chavo Mendosa MD Attending physician Active Start: June 22, 2025 End: June 22, 2025 Dr. Chavo Mendosa MD Referring Provider Active Start: June 22, 2025 End: June 22, 2025 Team Status: Inactive Member Role/Relationship Status Dates Dr. Chavo Mendosa MD Primary care physician Active Start: July 26, 2025 End: July 26, 2025 Dr. Chavo Mendosa MD Attending physician Active Start: July 26, 2025 End: July 26, 2025 Dr. Chavo Mendosa MD Referring Provider Active Start: July 26, 2025 End: July 26, 2025 Team Status: Active Member Role/Relationship Status Dates Dr. Chavo Mendosa MD Primary care physician Active Start: August 03, 2025 Dr. Chavo Mendosa MD Attending physician Active Start: August 03, 2025 Team Status: Inactive Member Role/Relationship Status Dates Dr. Chavo Mendosa MD Primary care physician Active Start: August 03, 2025 End: August 03, 2025 Dr. Chavo Mendosa MD Attending physician Active Start: August 03, 2025 End: August 03, 2025 Goals (unrecognized section and content) Goals [...] BE BASED ON THE PRIMARY CLINICAL RECORDS. [facility] [employer] [facility]. provides no warranty or guarantee of the accuracy or completeness of information in this document.
== END | disposition home or self-care (01) ==
LOC: RAD 10:08
PROVIDERS: PCP Family Medicine Geriatric Medicine; Referring Provider Internal Medicine; Visit Provider Internal Medicine
DX: Z00.00 Encounter for general adult medical examination without abnormal findings (principal)